=== PATIENT | female | born 1950 | race Caucasian/White ===

== ENCOUNTER 2016-04-17 07:17 | Day surgery (SDC) | payer MEDICARE, OTHER ==
[~2016-04-17 07:17] MED LIST: DEXAMETHASONE SOD PHOSPHATE 10 MG/ML 1 ML VIAL IV ONE; LACTATED RINGERS 1,000 ML IV SCH; MIDAZOLAM 2 MG/2 ML VIAL IV PRN; ONDANSETRON 4 MG/2 ML VIAL IVP ONE; ceFAZolin 2 GM in SODIUM CHLORIDE 0.9% 100 ML IVPB ONE
[2016-04-17 08:31] LABS: Glucose,Whole Blood 109 mg/dL (75-99)
[2016-04-17] MEDS ORDERED: LIDOCAINE 1% 20 ML VIAL (10MG/ML) FOR IV START INTRADERMA ONE (08:33)
[2016-04-17 08:40] LABS: Prothrombin Time 10.3 sec (9.0-12.0)
[2016-04-17] MEDS ORDERED: ePHEDrine 50 MG/ML 1 ML AMP ONE (08:54)
[2016-04-17] MEDS ORDERED: MIDAZOLAM 2 MG/2 ML VIAL ONE (08:54)
[2016-04-17] MEDS ORDERED: SUCCINYLCHOLINE CHLORIDE 100 MG/5 ML SYR IV ONE (08:54)
[2016-04-17] MEDS ORDERED: LIDOCAINE 1% INJ 10MG/ML (20 ML MDV) ONE (08:54)
[2016-04-17] MEDS ORDERED: PHENYLEPHRINE-0.9% NACL SYG 1 MG/10 ML SYRINGE ONE (08:54)
[2016-04-17] MEDS ORDERED: HYDROmorphone (PF) 1 MG/ML ONE (08:54)
[2016-04-17] MEDS ORDERED: PROPOFOL 10 MG/ML 20 ML VIAL IV ONE (08:54)
[2016-04-17] MEDS ORDERED: fentaNYL (PF) 50 MCG/ML 2 ML AMP ONE (08:54)
[2016-04-17] MEDS ORDERED: BUPIVACAINE (PF) 0.5% 30 ML VIAL SQ ONE ×2 (09:32→09:55)
[2016-04-17] MEDS ORDERED: HYDROcodone/APAP 5-325MG 1 EACH TAB PO PRN (10:08)
[2016-04-17] MEDS ORDERED: HYDROmorphone 1 MG/ML 1 ML SYRINGE IVP PRN ×3 (10:08)
[2016-04-17] MEDS ORDERED: ONDANSETRON 4 MG/2 ML VIAL IVP PRN (10:08)
--- NOTE | 2016-04-17 10:19 | P.OP ---
Date of Procedure: 04/17/16 Procedure(s) Performed: PREOPERATIVE DIAGNOSES: 1. Right elbow loose body 2. Right elbow contracture (45 to 100) 3. Right elbow osteoarthritis POSTOPERATIVE DIAGNOSES: 1. Right elbow loose bodies x 7 2. Right elbow contracture (45 to 100) 3. Right elbow osteoarthritis PROCEDURES PERFORMED: 1. Right elbow arthrotomy with open contracture release, anterior and posterior 2. Removal of loose bodies x7 3. Open spur excision olecranon ANESTHESIA: Gen. MEASUREMENT AND VERIFICATION ENGINEER: None COMPLICATIONS: None ESTIMATED BLOOD LOSS: 10 mL. DISPOSITION: To post-anesthesia care unit INDICATIONS: Kristen is a 66-year-old female with a history of right elbow osteoarthritis, pain, and stiffness. She has been having this problem for years and conservative treatment has been unsuccessful. Computed tomography scan preoperatively showed multiple loose bodies and severe osteoarthritis of the joint. She presents to the operating room today for removal of loose bodies contracture release and/or spur excision. I discussed this operation with her in detail as well as potential risks and complications and she wishes to proceed. The consent form has been signed. She is aware of the physical therapy necessary afterwards for optimization of outcome and to prevent the elbow from freezing up after surgery. PROCEDURE: After appropriate consent was obtained, the patient was taken to the operating room placed in the supine position. Anesthesia was initiated, and after confirmation of adequate anesthesia, the patient was carefully positioned. Care was taken to make sure that all pressure points were adequately padded. Prepping and draping were completed in the usual aseptic fashion using ChloraPrep. Timeout was called, confirming patient identity, side , procedure, and administration of antibiotics. Examination of the right elbow while under anesthesia showed range of motion from 45 to 100. Rotation was not significantly diminished from normal. Collateral ligaments felt stable to varus valgus testing. There is no evidence of rotational instability as well. Lateral approach was performed over the elbow. This utilized the interval directly over the lateral condyle and radiocapitellar joint, and was approximately 9 cm in length. It was carried down through skin into subcu tissues and then to muscular fascia. Fascia was split in line with the incision staying anterior to the radial collateral ligament. The common extensor insertion was released for exposure into the joint and joint fluid was evacuated. Good exposure of the anterior aspect of the elbow was accomplished via this lateral approach. Loose bodies x 5 immediately came into view and were removed easily with a small Percy. These measured each approximately 1-2 cm in size. Subsequently, capsular release was performed with a allen elevator, releasing adhesions off of the anterior aspect of the distal humerus. This improved both flexion and extension range of motion by approximately 20 to 25. Next, the same incision was used for a Percy-type approach, just anterior to the anconeus muscle. Good exposure was performed into the posterior compartment of the elbow and it was noted that there were 2 small loose bodies here which were removed easily and also spur formation over the olecranon process. Using a flat osteotome, approximately 5 mm of the posterior portion of the olecranon at the joint was removed. Capsular release was performed in similar fashion using an elevator, disengaging the posterior capsule from the posterior humerus. This portion of the procedure increased extension range of motion by approximately an additional 10. Therefore her final range of motion was 10 to 135. Flexion actually improved as well, and I was able to flex the elbow fairly easily to 135. Tourniquet was then deflated and hemostasis was obtained using cautery. Thorough irrigation of the interior of the joint was performed with normal saline and closure was performed of the fascia with 0 Vicryl suture followed by 3-0 Vicryl suture in the subcu tissues and 30 strata fix suture in running subcuticular fashion for the skin followed by Dermabond. Sterile dressing was applied and the patient's elbow was placed in a soft dressing and sling. Patient tolerated the procedure well and taken to recovery room in stable condition. Sponge and needle counts were correct.
[2016-04-17] MEDS ORDERED: HYDROmorphone 1 MG/ML 1 ML SYRINGE IVP ONE (10:31)
[2016-04-17 10:43] LABS: Glucose,Whole Blood 149 mg/dL (75-99)
[2016-04-17] MEDS ORDERED: diphenhydrAMINE 50 MG/ML 1 ML VIAL IVP ONE (10:47)
[2016-04-17] MEDS ORDERED: NITROGLYCERIN SL TABS 0.4 MG TAB SUBLINGUAL PRN (13:21)
[2016-04-17] MEDS ORDERED: LEVOTHYROXINE 100 MCG TAB PO SCH (13:30)
[2016-04-17] MEDS ORDERED: LEVOTHYROXINE 75 MCG TAB PO SCH (13:30)
[2016-04-17] MEDS: HYDROcodone/APAP 5-325MG 1 EACH TAB PO PRN ×2 (13:44→19:39)
[2016-04-17] MEDS: LACTATED RINGERS 1,000 ML IV SCH ×2 (14:09→22:08)
[2016-04-17] MEDS: ALBUTEROL NEBULIZED 2.5 MG/3 ML INHALATION SCH ×2 (16:18→23:06)
[2016-04-17 17:18] LABS: Glucose,Whole Blood 214 mg/dL (75-99)
[2016-04-17] MEDS: ceFAZolin 2 GM in SODIUM CHLORIDE 0.9% 100 ML IVPB SCH ×2 (17:40→23:40)
[2016-04-17] MEDS: INSULIN LISPRO (humaLOG) 300 UNIT/3 ML VIAL SQ SCH ×2 (17:41→22:19)
[2016-04-17] MEDS: HYDROCORTISONE 1% CREAM 30 GM TUBE TOPICAL SCH ×2 (17:41→22:06)
[2016-04-17] MEDS: hydrOXYzine PAMOATE 25 MG CAP PO PRN (19:40)
[2016-04-17] MEDS ORDERED: BUDESONIDE 0.5 MG/2 ML NEBU INHALATION SCH ×2 (20:00→23:06)
[2016-04-17] MEDS ORDERED: ADVAIR INHALATION SCH (21:00)
[2016-04-17] MEDS ORDERED: GABAPENTIN 300 MG CAP PO SCH (21:00)
[2016-04-17] MEDS ORDERED: LATANOPROST 0.005% OPHTH DROPS 2.5 ML BTL BOTH EYES SCH (21:00)
[2016-04-17] MEDS ORDERED: diphenhydrAMINE 25 MG CAP PO PRN (21:00)
[2016-04-17] MEDS ORDERED: TEMAZEPAM 15 MG CAP PO PRN (21:00)
[2016-04-17] MEDS ORDERED: SENNOSIDES-DOCUSATE SODIUM 1 EACH TAB PO PRN (21:00)
[2016-04-17] MEDS ORDERED: MONTELUKAST 10 MG TAB PO SCH (21:00)
--- NOTE | 2016-04-17 21:22 | CONS ---
DATE OF CONSULTATION: REASON FOR CONSULTATION: Recommendations regarding anticoagulation as well as recommendations regarding diabetic medications. Patient is a very pleasant 66-year-old female who came in for bone spur removal from the right elbow area. Patient postoperatively is doing clinically well. Patient denies any fever or chills. Patient did pass gas post surgery. Denied any nausea, vomiting, dysuria. Patient was receiving antibiotics for possibility of cellulitis. She completed the course of antibiotic. Patient is on Coumadin for DVT in the past, but the DVT history is remote and patient's Coumadin was held for the surgery. INR is 1. Patient takes 4 mg of Coumadin. REVIEW OF SYSTEMS: CONSTITUTIONAL: No fever, no malaise, no fatigue. HEENT: No recent visual problems or hearing problems. Denied any sore throat. CARDIOVASCULAR: No chest pain, orthopnea, PND, no palpitations, no syncope. PULMONARY: No shortness of breath, no cough, no hemoptysis. GASTROINTESTINAL: No diarrhea, no nausea, no vomiting, no abdominal pain. Normoactive bowel sounds. NEUROLOGICAL: No headaches, no weakness, no numbness. HEMATOLOGICAL: Denies any bleeding or petechiae. GENITOURINARY: Denies any burning micturition, frequency, or urgency. MUSCULOSKELETAL/RHEUMATOLOGICAL: Pain at the surgical site area. ENDOCRINE: Denies any polyuria or polydipsia. The rest of the 14 point review of systems is negative. Past medical history is significant for: 1. COPD. 2. Diabetes mellitus. 3. DVT in the past. 4. Osteoarthritis. 5. Sleep apnea. 6. Hypothyroidism. 7. Glaucoma. 8. Back surgery. 9. Bladder surgery. 10. Cardiac catheterization surgery. 11. Hysterectomy. 12. Joint replacement surgery. 13. Orthopedic surgery. 14. Tonsillectomy. FAMILY HISTORY: Significant for hyperlipidemia and hypertension. SOCIAL HISTORY: Remote history of smoking. Denied any alcohol abuse or any drug abuse. PHYSICAL EXAMINATION: VITAL SIGNS: Temperature 97.8, pulse of 66, respiratory rate of 16. Blood pressure is 114/55. Saturating at 95% on 3 L of oxygen by nasal cannula. GENERAL: The patient is alert and oriented x3, not in any acute distress. Well developed, well nourished. HEENT: Pupils are round and equally reacting to light. EOMI. No scleral icterus. No conjunctival pallor. Normocephalic, atraumatic. No pharyngeal erythema. No thyromegaly. CARDIOVASCULAR: S1 and S2 present. No murmurs, rubs, or gallops. PULMONARY: Chest is clear to auscultation, no wheezing or crackles. ABDOMEN: Soft, nontender, nondistended, normoactive bowel sounds. No palpable organomegaly. MUSCULOSKELETAL: Defer to Orthopedic surgery. EXTREMITIES: No cyanosis, clubbing, or pedal edema. NEUROLOGICAL: Gross neurological examination did not reveal any focal deficits. SKIN: No rashes. LABORATORY DATA: None available except for INR, which is ( ). Stopping anticoagulation before surgery. ASSESSMENT AND PLAN: 1. Right elbow spur removal. Pain management as per primary services. ( ) heparin for DVT prophylaxis ( ) patient's DVT was remote, patient can be resumed on Coumadin. May check INR is about 5 days. 2. Chronic obstructive pulmonary disease, not in acute exacerbation. 3. Type 2 diabetes mellitus. Patient's blood sugars appear to be well controlled on oral hypoglycemics and patient is eating almost her full meal, because of which we can go ahead and continue that and use sliding scale insulin. 4. Sleep apnea. 5. Gastroesophageal reflux disease. 6. Hypothyroidism. For above-mentioned chronic medical problems, I recommend going ahead and continue her home medications. Continue home CPAP. Thank you for letting me participate in the patient's care. Will continue to follow the patient on an as-needed basis. Patient most probably will be discharged tomorrow on the same dose of Coumadin with INR check in about 5 days. Patient's primary care physician is Dr. Josy Man.
[2016-04-17] MEDS: FAMOTIDINE 20 MG TAB PO SCH (22:05)
[2016-04-17] MEDS: LATANOPROST 0.005% OPHTH DROPS 2.5 ML BTL BOTH EYES SCH (22:06)
[2016-04-17] MEDS: BRIMONIDINE TARTRATE 0.2% DROPS 5 ML BTL BOTH EYES SCH (22:07)
[2016-04-17 22:18] LABS: Glucose,Whole Blood 153 mg/dL (75-99)
[2016-04-17] MEDS: HEPARIN SODIUM,PORCINE 5,000 UNIT/ML 1 ML VIAL SQ SCH (23:16)
[2016-04-18] MEDS: HYDROcodone/APAP 5-325MG 1 EACH TAB PO PRN ×3 (01:44→12:18)
[2016-04-18] MEDS: hydrOXYzine PAMOATE 25 MG CAP PO PRN ×2 (01:44→06:58)
[2016-04-18] MEDS: LACTATED RINGERS 1,000 ML IV SCH (03:11)
[2016-04-18] MEDS ORDERED: LEVOTHYROXINE 75 MCG TAB PO SCH (06:30)
[2016-04-18 07:02] LABS: Glucose,Whole Blood 121 mg/dL (75-99)
[2016-04-18] MEDS: ALBUTEROL NEBULIZED 2.5 MG/3 ML INHALATION SCH (07:28)
[2016-04-18] MEDS: INSULIN LISPRO (humaLOG) 300 UNIT/3 ML VIAL SQ SCH ×2 (08:42→15:01)
[2016-04-18] MEDS: LATANOPROST 0.005% OPHTH DROPS 2.5 ML BTL BOTH EYES SCH (08:54)
[2016-04-18] MEDS: HEPARIN SODIUM,PORCINE 5,000 UNIT/ML 1 ML VIAL SQ SCH (08:54)
[2016-04-18] MEDS: BRIMONIDINE TARTRATE 0.2% DROPS 5 ML BTL BOTH EYES SCH (08:54)
[2016-04-18] MEDS: HYDROCORTISONE 1% CREAM 30 GM TUBE TOPICAL SCH (08:54)
[2016-04-18] MEDS: FAMOTIDINE 20 MG TAB PO SCH (08:55)
[2016-04-18 09:33] VITALS: RESP 16
--- NOTE | 2016-04-18 11:01 | P.DS ---
Providers Date of admission: 04/17/2016 Expected date of discharge: 04/18/16 Attending physician: Sonny Kim Consults: 04/17/16 10:08 Consult Physician Routine Consulting Provider: Serene Cui Consult Reason/Comments: medical management Do you want consulting provider notified?: Yes Primary care physician: Josy Man - Discharge Diagnosis(es) (1) Loose body in elbow joint Current Visit: Yes Status: Acute Hospital Course: This is a pleasant 66-year-old female who presented with loose bodies of the right elbow and olecranon spur who failed outpatient conservative therapy. She admitted for right elbow arthrotomy with open contracture release anterior and posterior with removal of 7 loose bodies and open spur excursion of the olecranon form by Dr. Kim on 04/17/2016. The patient tolerated the procedure well and did well postoperatively in regards to her right elbow. She did have some nausea yesterday with vomiting on her sling and had to have it changed. Patient states she has also been experiencing some lightheadedness when attempting to ambulate postsurgically. At this time she does not feel she'll be able to be discharged home due to her lightheadedness. We discussed we'll plan to have her have further consultation with medicine for further evaluation for her lightheadedness and will attempt to have her ambulate with assistance. If her symptoms are able to improve and she is cleared by medicine, she will be cleared for discharge today. Patient states she is working on her range of motion of her right elbow without significant difficulty. She does have some generalized swelling of the right hand, which is expected postsurgically. Prescriptions have been written for Gardner 5 mg/325 mg and Senokot. Condition on day of discharge will be stable. Patient will be discharged home. Patient was cleared preoperatively for surgery by Dr. Josy Man. Patient currently denies any nausea, vomiting, fever, or chills. Patient is eating and voiding freely without difficulty. Patient may shower without dressing if no drainage at the incision site after 48 hours. Physical Exam: Patient is awake, alert, and oriented 3 Vital signs stable Good chest excursion with deep inspiration and expiration Abdomen soft nontender Sling in place over the right upper extremity Patient is able to remove sling and perform some flexion extension of the right elbow without significant difficulty Juliano wrap dressing is intact over the right elbow Incision is clean, dry, and intact; no erythema, purulence, or signs of infection Patient is able to perform wrist flexion and extension able to move all fingers of the right hand without significant difficulty Some generalized mild swelling of the hand and fingers of the right upper extremity Neurovascular intact right upper extremity Capillary refill less than 2 seconds right upper extremity No pain with palpation of the right shoulder Assessment: Status post right elbow arthrotomy with open contracture release anterior and posterior with removal of 7 loose bodies and open spur excursion of the olecranon Plan: 1. We'll currently plan for further evaluation by medicine for the patient's lightheadedness. If she is able to be seen and examined and cleared by medicine we'll plan to have her discharged home. From orthopedic standpoint, she is clear for discharge in regards to her right elbow. I currently do not have a medical reason she would need to remain in the hospital in regards to her right elbow, but do not feel she is ready to be discharged until she is cleared in regards to her lightheadedness. I discussed with the patient in detail I would like her to have her further evaluated for her left lightheadedness prior to discharge home. 2. Continue pain control 3. We will continue to follow patient 4. Patient is cleared from medicine standpoint, we'll plan for patient be discharged home either later today or tomorrow morning 5. Dressing of the right upper extremity may be change prior to discharge Procedures: Right elbow arthrotomy with open contracture release anterior and posterior with removal of 7 loose bodies and open spur excursion of the olecranon Patient Condition at Discharge: Stable Plan - Discharge Summary New Discharge Prescriptions: HYDROcodone/APAP 5-325MG [Gardner 5] 1 - 2 each PO Q4-6H PRN #60 tab PRN Reason: Pain Sennosides-Docusate Sodium [Senokot-S] 1 tab PO BID #60 tablet Discharge Medication List Brimonidine Tartrate [Alphagan P 0.1% Ophth Soln] 1 drops BOTH EYES BID [History] Fluticasone Propionate [Flovent Diskus] 1 puff INHALATION HS 10/02/13 [History] Folic Acid/Mv,Fe,Min [Centrum Multivitamin Tab Chew] 1 each PO DAILY 10/02/13 [ History] Gabapentin [Neurontin] 300 mg PO HS 10/02/13 [History] Levothyroxine Sodium [Synthroid] 150 mcg PO SUTUTHSA 10/02/13 [History] Levothyroxine Sodium [Synthroid] 175 mcg PO MOWEFR 10/02/13 [History] Montelukast [Singulair] 10 mg PO HS 10/02/13 [History] Nitroglycerin Sl Tabs [Nitrostat] 0.4 mg SL DIRECTED PRN 10/02/13 [History] Travoprost [Travatan Z 0.004%] 1 drop BOTH EYES BID 10/02/13 [History] glipiZIDE [Glucotrol] 5 mg PO AC-BID 10/02/13 [History] Albuterol Nebulizer 1 dose INHALATION BID 01/23/14 [History] Dicyclomine [Bentyl] 20 mg PO BID 01/23/14 [History] Ranitidine HCl [Zantac] 150 mg PO BID 01/23/14 [History] Latanoprost Ophth [Xalatan 0.005%] 1 drops BOTH EYES HS 02/23/14 [History] Advair Inhaler (Unknown Dose) 1 puff INHALATION BID 06/05/14 [History] Warfarin [Coumadin] 4 mg PO DAILY 06/05/14 [History] Baclofen 5 mg PO Q8H 09/24/14 [History] Hydrocortisone Cream [Hydrocortisone 1% Cream] 1 applic TOPICAL TID #1 cream..g. 11/20/15 [Rx] diphenhydrAMINE [Benadryl] 1 - 2 tab PO Q6HR PRN #30 capsule 11/20/15 [Rx] Cephalexin [Keflex] 500 mg PO Q6HR 04/15/16 [History] HYDROcodone/APAP 5-325MG [Gardner 5] 1 - 2 each PO Q4-6H PRN #60 tab 04/17/16 [Rx] Sennosides-Docusate Sodium [Senokot-S] 1 tab PO BID #60 tablet 04/17/16 [Rx] Follow up Appointment(s)/Referral(s): Sonny Kim MD [STAFF PHYSICIAN] - 04/27/16 2:00 pm Activity/Diet/Wound Care/Special Instructions: May change dressing before discharge. May shower if no drainage after 48h. Encourage gentle ROM of elbow.
[2016-04-18 11:04] LABS: Hemoglobin A1C 6.2 % (4.2-6.1)
[2016-04-18 11:44] LABS: Glucose,Whole Blood 154 mg/dL (75-99)
[2016-04-18 15:07] VITALS: BP 112/58; PULSE 62; TEMP 98.8
--- NOTE | 2016-04-18 16:25 | PN ---
Patient is a 68-year-old admitted after bone spur removal. Patient is clinically doing well. Okay to be discharged from my perspective. Patient although is wheezing, but saturating well. I do not believe patient will need systemic steroids. Patient has inhalational steroids and albuterol at home, which she can continue. I do not have any further recommendations. Patient can be discharged from my perspective and follow up with Dr. Josy Man as an outpatient. Patient was complaining of some dizziness secondary to anticholinergic medications she was receiving as well as narcotic pain medications she was receiving. I do not believe any further workup is necessary at this point of time. REVIEW OF SYSTEMS: CARDIOVASCULAR: No chest pain, no orthopnea, no PND, no palpitations. PULMONARY: Denied any shortness of breath. No cough or hemoptysis. GASTROINTESTINAL: No diarrhea, nausea or vomiting. No abdominal pain. Normoactive bowel sounds. NEUROLOGIC: Dizziness as mentioned above without any focal deficits. Medications were reviewed and medical reconciliation was reviewed, no changes are being made. PHYSICAL EXAMINATION: Temperature 97.7 pulse of 63, respiratory rate of 16, blood pressure is 132/62, saturating at 96% on room air. GENERAL: The patient is alert and oriented x3, not in any acute distress. Well developed, well nourished. HEENT: Pupils are round and equally reacting to light. EOMI. No scleral icterus. No conjunctival pallor. Normocephalic, atraumatic. No pharyngeal erythema. No thyromegaly. CARDIOVASCULAR: S1 and S2 present. No murmurs, rubs, or gallops. PULMONARY: Chest is clear to auscultation, no wheezing or crackles. ABDOMEN: Soft, nontender, nondistended, normoactive bowel sounds. No palpable organomegaly. MUSCULOSKELETAL: Defer to orthopedic surgery. EXTREMITIES: No cyanosis, clubbing, or pedal edema. NEUROLOGICAL: Gross neurological examination did not reveal any focal deficits. SKIN: No rashes. LABORATORY DATA: Hemoglobin A1c is 6.2. ASSESSMENT AND PLAN: 1. Right elbow spur removal. Deep venous thrombosis prophylaxis and further management for pain as per primary service. 2. Chronic obstructive pulmonary disease versus asthma. The patient has minimal exacerbation, but patient should be okay with inhalational steroids and albuterol. The patient is not tachycardic. Respiratory rate is okay. Saturations are okay. I do not believe patient will need to stay in the hospital for that. 3. Sleep apnea. 4. Gastroesophageal reflux disease. 5. Hypothyroidism. Patient is okay to be discharged from my perspective. Same thing was conveyed to the patient and the primary service. Patient will follow with Dr. Sonny Kim as scheduled and Dr. Josy Man in 3 to 7 days. Activity as tolerated. Regular diet.
[2016-04-18] MEDS ORDERED: WARFARIN 2 MG TAB PO SCH (18:00)
== END 2016-04-18 16:24 ==
LOC: OR 07:17 → 3SUR 10:05 → OR 04-18 16:24
PROVIDERS: ATTEND Orthopaedic Surgery
DX: M24.021 Loose body in right elbow (principal); M24.521 Contracture, right elbow; M19.021 Primary osteoarthritis, right elbow; L03.032 Cellulitis of left toe; J45.909 Unspecified asthma, uncomplicated; E11.9 Type 2 diabetes mellitus without complications; K21.9 Gastro-esophageal reflux disease without esophagitis; M25.721 Osteophyte, right elbow; R11.2 Nausea with vomiting, unspecified; R42 Dizziness and giddiness; E03.9 Hypothyroidism, unspecified; G47.33 Obstructive sleep apnea (adult) (pediatric); H40.9 Unspecified glaucoma; H91.90 Unspecified hearing loss, unspecified ear; I10 Essential (primary) hypertension; Z79.51 Long term (current) use of inhaled steroids; Z79.899 Other long term (current) drug therapy; Z88.1 Allergy status to other antibiotic agents; Z88.5 Allergy status to narcotic agent; Z88.2 Allergy status to sulfonamides; Z91.040 Latex allergy status; Z79.01 Long term (current) use of anticoagulants; Z79.82 Long term (current) use of aspirin; Z86.718 Personal history of other venous thrombosis and embolism
CPT/HCPCS: 24147; 24101; 94640 ×2; 88304; 83036; 85610; 88311; J2250; J1200; J1644 ×2; J1100; J0690; J2405; J2001; J3010; J1170; J2370; J0330; J2704

== ENCOUNTER → 2016-05-25 | Outpatient (CLI) | payer MEDICARE, OTHER ==
[2016-05-25 10:07] LABS: INR 2.4 (<1.1); Prothrombin Time 22.9 sec (9.0-12.0)
== END | disposition home or self-care (01) ==
LOC: LABWHC1 09:30
PROVIDERS: ATTEND Ophthalmology
DX: I82.409 Acute embolism and thrombosis of unspecified deep veins of unspecified lower extremity (principal)
CPT/HCPCS: 36415; 85610

== ENCOUNTER 2016-05-27 06:15 | Day surgery (SDC) | payer MEDICARE, OTHER ==
[2016-05-26 14:54] VITALS: BMI 34.1
[~2016-05-27 06:15] MED LIST changes: -DEXAMETHASONE SOD PHOSPHATE 10 MG/ML 1 ML VIAL IV ONE; -LACTATED RINGERS 1,000 ML IV SCH; -MIDAZOLAM 2 MG/2 ML VIAL IV PRN; +MOXIFLOXACIN HCL 0.5% DROPS 3 ML BTL OP ONE; -ONDANSETRON 4 MG/2 ML VIAL IVP ONE; +TETRACAINE 0.5% OPHTH (PF) DROPS 4 ML BTL OP ONE; +TIMOLOL 0.5% OPHTH SOLN (PF) 0.2 ML DROPERETTE OP ONE; -ceFAZolin 2 GM in SODIUM CHLORIDE 0.9% 100 ML IVPB ONE
[2016-05-27] MEDS: CYCLOPENTOLATE 1% OPHTH SOLN 2 ML BTL OP ONE ×3 (06:32→07:00)
[2016-05-27] MEDS: PHENYLEPHRINE 2.5% OPHTH DRP 2ML OP NR ×3 (06:43→07:05)
[2016-05-27] MEDS ORDERED: LACTATED RINGERS 1,000 ML IV ONE (06:59)
[2016-05-27] MEDS ORDERED: ALBUTEROL NEBULIZED 2.5 MG/3 ML INHALATION STA (07:03)
[2016-05-27 07:04] VITALS: RESP 16; TEMP 97.8
[2016-05-27] MEDS ORDERED: LIDOCAINE 1% 20 ML VIAL (10MG/ML) FOR IV START INTRADERMA ONE (07:06)
[2016-05-27 07:15] LABS: Glucose,Whole Blood 118 mg/dL (75-99)
[2016-05-27] MEDS ORDERED: MIDAZOLAM 2 MG/2 ML VIAL ONE (07:28)
[2016-05-27] MEDS ORDERED: EPINEPHrine (PF) 0.3 ML in BALANCED SALT IRRIG SOLN COMB2 500 ML IRRIGATION ONE (07:46)
[2016-05-27] MEDS ORDERED: HYALURONATE SODIUM INTRAOCULAR 1 EACH SYRINGE (12MG/ML) INTRAOCULA ONE (07:48)
[2016-05-27] MEDS ORDERED: BALANCED SALT IRRIG SOLN COMB2 15 ML IRRIG.SOLN IRRIGATION ONE (07:48)
[2016-05-27] MEDS ORDERED: HYALURONATE SODIUM INTRAOCULAR 1 EACH SYRINGE (10MG/ML) INTRAOCULA ONE (07:49)
[2016-05-27] MEDS ORDERED: LIDOCAINE 1% (PF) 10MG/ML VIAL MISCELLANE ONE (07:49)
--- NOTE | 2016-05-27 08:21 | P.OP ---
Date of Procedure: 05/27/16 Preoperative Diagnosis: NS & CS & PSC & POAG Postoperative Diagnosis: same Procedure(s) Performed: PIOL & iStent OD Implants: PCB0 18.50 & [id number] Anesthesia: MAC Surgeon: Brayden Shankar Estimated Blood Loss (ml): 0 Pathology: none sent Condition: stable Disposition: same day Indications for Procedure: blurry vision and POAG Operative Findings: no complications
[2016-05-27 08:50] VITALS: BP 140/82; PULSE 70
--- NOTE | 2016-05-28 07:53 | OP ---
DATE OF SERVICE: SURGEON: THADDEUS RANGEL MD FRONTLOAD DRIVER: PREOPERATIVE DIAGNOSIS: Nuclear sclerosis, cortical sclerosis and primary open-angle glaucoma, moderate stage. POSTOPERATIVE DIAGNOSIS: Nuclear sclerosis, cortical sclerosis and primary open-angle glaucoma, moderate stage. OPERATION: Phacoemulsification of cataract with intraocular lens implant of the right eye with an eye stent implantation. ANESTHESIA: Topical. ESTIMATED BLOOD LOSS: 5 mL. SPECIMENS REMOVED: None. COMPLICATIONS: OPERATIVE FINDINGS: DESCRIPTION OF PROCEDURE: NARRATIVE: After obtaining the appropriate consent, the patient was brought to the operating room. There she was placed under cardiac monitoring, prepped and draped in the usual sterile manner. She was approached from her right temporal side. At the 11o'clock position, a 1.1 mm stab blade was used to create a paracentesis port. Through this opening, 1% Xylocaine MPF 50-50 mix with balance salt solution was injected into the anterior chamber. This was followed by stabilization of the anterior chamber with Viscoat. At the 9 o'clock position, a 2.5 mm keratome was used to create a self-sealing corneal flap incision. Additional Viscoat was placed on the patient's cornea. The patient's head was rotated approximately 45 degrees away from the operative side and a gonioprism was placed on the eye to identify the trabecular mesh work. This was easily noted and placement of an iStent by Elli, Model #[id number] [id number] was placed after the second attempt directly into the trabecular mesh work without difficulty. A reasonable amount of blood was refluxed at the time of placement as would be expected. The patient's head was then returned to the proper supine position. A cystotome was introduced to start a continuous tear capsulorrhexis, which was completed using the Utrata forceps. Hydrodissection and hydrodelineation of the lens was accomplished with balanced salt solution. Phacoemulsification of the lens utilizing phaco chop was accomplished in 15.72 seconds at 10% power. Additional Xylocaine MPF was instilled into the anterior chamber. This was followed by removal of the remaining cortex under irrigation and aspiration along with careful polishing of the posterior capsule in capsule vacuum mode. Amvisc was then used to stabilize the anterior chamber and an KARMEN PCB00 18.5 diopter posterior chamber intraocular lens was then introduced into the anterior chamber and placed into the capsular bag. The remaining viscoelastic was then removed under irrigation and aspiration and the eye was inflated to normal intraocular pressure through the paracentesis port and the wounds were confirmed watertight. She then received 2 drops of 0.5% timolol followed by 2 drops of Vigamox, was then lightly patched and shielded in the usual manner. There were no complications from the procedure. She tolerated the procedure well and was returned to outpatient recovery in good condition.
== END 2016-05-27 09:15 | disposition home or self-care (01) ==
LOC: OR 06:15
PROVIDERS: ATTEND Ophthalmology
DX: H25.11 Age-related nuclear cataract, right eye (principal); H25.011 Cortical age-related cataract, right eye; H40.1132 Primary open-angle glaucoma, bilateral, moderate stage; Z79.899 Other long term (current) drug therapy; Z88.1 Allergy status to other antibiotic agents; Z88.5 Allergy status to narcotic agent; Z88.2 Allergy status to sulfonamides; I25.2 Old myocardial infarction; E78.00 Pure hypercholesterolemia, unspecified; F32.9 Major depressive disorder, single episode, unspecified; I10 Essential (primary) hypertension; E11.40 Type 2 diabetes mellitus with diabetic neuropathy, unspecified; Z79.01 Long term (current) use of anticoagulants; J45.909 Unspecified asthma, uncomplicated; J44.9 Chronic obstructive pulmonary disease, unspecified; G47.33 Obstructive sleep apnea (adult) (pediatric); K21.9 Gastro-esophageal reflux disease without esophagitis; Z86.718 Personal history of other venous thrombosis and embolism; Z91.040 Latex allergy status
CPT/HCPCS: 94640; 66984; 66183; C1780; C1783; J2250; J0171; J2001; 99152; 99153

== ENCOUNTER 2016-06-24 06:06 | Day surgery (SDC) | payer MEDICARE, OTHER ==
[~2016-06-24 06:06] MED LIST changes: +DEXAMETHASONE SOD PHOSPHATE 10 MG/ML 1 ML VIAL IV ONE; +HYDROmorphone 1 MG/ML 1 ML SYRINGE IVP PRN; +LACTATED RINGERS 1,000 ML IV SCH; +MIDAZOLAM 2 MG/2 ML VIAL IV PRN; +ONDANSETRON 4 MG/2 ML VIAL IVP ONE
[2016-06-24 06:33] VITALS: TEMP 98.6
[2016-06-24] MEDS: PHENYLEPHRINE 2.5% OPHTH DRP 2ML OP NR ×3 (06:49→07:09)
[2016-06-24] MEDS: CYCLOPENTOLATE 1% OPHTH SOLN 2 ML BTL OP ONE ×3 (06:51→07:13)
[2016-06-24] MEDS ORDERED: LIDOCAINE 1% 20 ML VIAL (10MG/ML) FOR IV START INTRADERMA ONE (07:00)
[2016-06-24 07:01] LABS: Glucose,Whole Blood 129 mg/dL (75-99)
[2016-06-24] MEDS ORDERED: FAMOTIDINE 20 MG/2 ML VIAL IV STA (07:03)
[2016-06-24] MEDS ORDERED: MIDAZOLAM 2 MG/2 ML VIAL ONE (07:30)
[2016-06-24] MEDS ORDERED: fentaNYL (PF) 50 MCG/ML 2 ML AMP ONE (07:30)
[2016-06-24] MEDS ORDERED: DUOVISC KIT (GREEN BOX) INTRAOCULA ONE (07:34)
[2016-06-24] MEDS ORDERED: LIDOCAINE 1% (PF) 10MG/ML VIAL SQ ONE (07:34)
[2016-06-24] MEDS ORDERED: BALANCED SALT IRRIG SOLN COMB2 15 ML IRRIG.SOLN IRRIGATION ONE (07:34)
[2016-06-24] MEDS ORDERED: EPINEPHrine (PF) 0.3 ML in BALANCED SALT IRRIG SOLN COMB2 500 ML IRRIGATION ONE (07:49)
--- NOTE | 2016-06-24 08:16 | P.OP ---
Date of Procedure: 06/24/16 Preoperative Diagnosis: NS & CS & POAG moderate stage Postoperative Diagnosis: same Procedure(s) Performed: PIOL, iStent implantation OS Implants: PCB0 19.0 & iStent [id number] Anesthesia: MAC Surgeon: Brayden Shankar Estimated Blood Loss (ml): 0 Pathology: none sent Condition: stable Disposition: same day Indications for Procedure: blurry vision and glaucoma Operative Findings: no complications
[2016-06-24 09:01] VITALS: RESP 16
[2016-06-24] MEDS ORDERED: PROMETHAZINE INJ 25 MG/ML 1 ML VIAL IVPB ONE (09:09)
[2016-06-24] MEDS ORDERED: PROMETHAZINE INJ 6.25 MG in SODIUM CHLORIDE 0.9% 50 ML IVPB STA ×2 (09:11→09:14)
[2016-06-24] MEDS ORDERED: ONDANSETRON 4 MG/2 ML VIAL IVP ONE (09:23)
[2016-06-24 09:29] VITALS: BP 120/58; PULSE 64
--- NOTE | 2016-06-25 08:10 | OP ---
DATE OF SERVICE: 06/24/2016 SURGEON: THADDEUS RANGEL MD INDUSTRIAL TECHNOLOGIST: PREOPERATIVE DIAGNOSES: Nuclear sclerosis, cortical sclerosis, posterior subcapsular cataract, and primary open-angle glaucoma, moderate stage. POSTOPERATIVE DIAGNOSES: Nuclear sclerosis, cortical sclerosis, posterior subcapsular cataract, and primary open-angle glaucoma, moderate stage. OPERATION: Phacoemulsification of cataract and intraocular lens implant of the left eye with an eye stent implantation. ANESTHESIA: Topical. ESTIMATED BLOOD LOSS: None. SPECIMENS REMOVED: None. COMPLICATIONS: OPERATIVE FINDINGS: DESCRIPTION OF PROCEDURE: NARRATIVE: Patient was brought to the operating room. There she was placed under cardiac monitoring, prepped and draped in the usual sterile manner. She was approached from her left temporal side and at the 5 o'clock position a 1.1 mm stab blade was used to create a paracentesis port. Through this opening, 1% Xylocaine MPF was instilled into the anterior chamber. This was followed by stabilization of the anterior chamber with Viscoat. A small amount of Viscoat was also placed on the patient's cornea. At the 3 o'clock position, a 2.5 mm keratome was used to create a self-sealing corneal flap incision in a Langerman fashion. Patient was then rotated approximately 45 degrees away from the surgical site and a gonioprism was placed on the patient's eye. The trabecular meshwork was easily identified and an iStent, model #GTS [id number] was passed across the anterior chamber and implanted into the trabecular meshwork without difficulty. A small amount of blood was identified at the end of the placement procedure as one would expect. Patient was then rotated to the normal supine position. A cystotome was introduced to begin a continuous tear capsulorrhexis, which was completed using the Utrata forceps. Hydrodissection and hydrodelineation of the lens was accomplished with balanced salt solution. Phacoemulsification of the lens utilizing phaco chop was accomplished in 11.34 seconds at 9% power. Additional Xylocaine MPF was instilled into the anterior chamber. This was followed by removal of the remaining cortex under irrigation and aspiration along with careful polishing of the posterior capsule in capsule vacuum mode. Additional Provisc was instilled into the capsular bag and an KARMEN PCB00 19.0 diopter posterior chamber intraocular lens was then inserted into the capsular bag without difficulty. Irrigation and aspiration in and around the intraocular lens as well as the anterior chamber removed the remaining viscoelastic. The eye was then brought to normal intraocular pressure through the paracentesis port with balanced salt solution. The incisions were checked for watertight integrity. She then received 2 drops of 0.5% timolol followed by 2 drops of Vigamox, was then lightly patched and shielded in the usual manner. There were no complications from the procedure. She tolerated the procedure well and was returned to outpatient recovery in good condition.
== END 2016-06-24 09:59 | disposition home or self-care (01) ==
LOC: OR 06:06
PROVIDERS: ATTEND Ophthalmology
DX: H25.12 Age-related nuclear cataract, left eye (principal); H25.012 Cortical age-related cataract, left eye; H25.042 Posterior subcapsular polar age-related cataract, left eye; H40.1132 Primary open-angle glaucoma, bilateral, moderate stage; E11.36 Type 2 diabetes mellitus with diabetic cataract; H57.059 Tonic pupil, unspecified eye; H52.13 Myopia, bilateral; H21.23 Degeneration of iris (pigmentary); Z96.1 Presence of intraocular lens; I10 Essential (primary) hypertension; J44.9 Chronic obstructive pulmonary disease, unspecified; M19.90 Unspecified osteoarthritis, unspecified site; J45.909 Unspecified asthma, uncomplicated; E78.00 Pure hypercholesterolemia, unspecified; E03.9 Hypothyroidism, unspecified; I25.2 Old myocardial infarction; I51.9 Heart disease, unspecified; G62.9 Polyneuropathy, unspecified; Z79.01 Long term (current) use of anticoagulants; Z79.51 Long term (current) use of inhaled steroids; Z79.899 Other long term (current) drug therapy; Z88.1 Allergy status to other antibiotic agents; Z88.5 Allergy status to narcotic agent; Z88.2 Allergy status to sulfonamides
CPT/HCPCS: 66984; 66183; C1780; C1783; J2250; J1100; J2405; J0171; J3010; J2001

== ENCOUNTER → 2016-08-13 | Outpatient (CLI) | payer MEDICARE, OTHER ==
[2016-08-13 11:05] LABS: Hemoglobin A1C 6.2 % (4.2-6.1)
== END | disposition home or self-care (01) ==
LOC: LABWHC1 07:51
PROVIDERS: ATTEND Family Medicine
DX: E11.9 Type 2 diabetes mellitus without complications (principal)
CPT/HCPCS: 36415; 83036

== ENCOUNTER → 2016-09-09 | Outpatient (CLI) | payer MEDICARE ==
[2016-09-09 10:14] LABS: ALT 44 U/L (9-52); AST 34 U/L (14-36); Alkaline Phosphatase 109 U/L (38-126); Anion Gap 10 mmol/L; Blood Urea Nitrogen 11 mg/dL (7-17); Calcium 9.5 mg/dL (8.4-10.2); Carbon Dioxide 28 mmol/L (22-30); Chloride 103 mmol/L (98-107); Cholesterol 188 mg/dL (<200); Glucose 102 mg/dL (74-99); HDL Cholesterol 41 mg/dL (40-60); Non-African American GFR(MDRD) >60 (>60 ml/min/1.73 sqM); Potassium 4.5 mmol/L (3.5-5.1); Sodium 141 mmol/L (137-145); Total Bilirubin 0.6 mg/dL (0.2-1.3); Total Protein 7.1 g/dL (6.3-8.2); Triglycerides 157 mg/dL (<150)
== END | disposition home or self-care (01) ==
LOC: LABWHC1 08:17
PROVIDERS: ATTEND Family Medicine
DX: E78.00 Pure hypercholesterolemia, unspecified (principal); E03.9 Hypothyroidism, unspecified; E11.9 Type 2 diabetes mellitus without complications
CPT/HCPCS: 36415; 80053; 80061; 84439; 84443

== ENCOUNTER → 2016-10-07 | Outpatient (CLI) | payer MEDICARE ==
--- NOTE | 2016-10-07 13:15 | MM ---
Reason for exam: screening (asymptomatic). Last mammogram was performed 1 year and 1 month ago. History: Patient is postmenopausal. Benign stereotactic core biopsy of the right breast, March 26, 1999. Core biopsy of the right breast. Physical Findings: A clinical breast exam by your physician is recommended on an annual basis and results should be correlated with mammographic findings. MG 3D Screening Mammo W/Cad Bilateral CC and MLO view(s) were taken. Prior study comparison: September 17, 2015, bilateral MG 3d screening mammo w/cad. May 03, 2013, bilateral digital screening mammo w/CAD. There are scattered fibroglandular densities. Benign calcifications. There is no discrete abnormality. No significant changes when compared with prior studies. ASSESSMENT: Benign, BI-RAD 2 RECOMMENDATION: Routine screening mammogram of both breasts in 1 year.
== END | disposition home or self-care (01) ==
LOC: RADMAMWWP 07:32
PROVIDERS: ATTEND Family Medicine
DX: Z12.31 Encounter for screening mammogram for malignant neoplasm of breast (principal)
CPT/HCPCS: 77063; G0202

== ENCOUNTER → 2016-10-14 | Outpatient (CLI) | payer MEDICARE ==
--- NOTE | 2016-10-14 14:26 | US ---
EXAMINATION TYPE: US thyroid st tissue head/neck DATE OF EXAM: 10/14/2016 COMPARISON: US CLINICAL HISTORY: 66-year-old female E04.2 Nontoxic multinodular goiter. TECHNIQUE: Multiple sonographic images of the thyroid gland are obtained. FINDINGS: GLAND SIZE: Right Lobe: there is small area of very heterogeneous tissue measuring 2.6 x 0.9 x 1.0 cm. Left Lobe: no appreciable thyroid tissue seen Isthmus Thickness: no appreciable thyroid tissue seen No discrete nodules. Bilateral neck scanned, no evidence of lymphadenopathy. IMPRESSION: Small amount of heterogeneous tissue measuring 2.6 cm in the right thyroid fossa. No appreciable thyr oid tissue seen on the left. Clinical correlation recommended.
== END | disposition home or self-care (01) ==
LOC: RADUSWWP 13:29
PROVIDERS: ATTEND Family Medicine
DX: E07.89 Other specified disorders of thyroid (principal)
CPT/HCPCS: 76536

== ENCOUNTER → 2017-03-02 | Outpatient (CLI) | payer MEDICARE ==
--- NOTE | 2017-03-02 16:43 | PN ---
PROGRESS NOTE This is a 67-year-old female patient, who is well known to me regarding obstructive sleep apnea. The patient has been on BiPAP therapy at a pressure of 11/7 cm of water. She is coming in today with increased somnolence and sleepiness. The patient's machine is not functioning and is not working at this point. I plugged the machine and there is absolutely no functionality and no output noted. No trauma to the machine. The patient has been using the same machine for more than 6 years. Last CPAP titration was back in 2010. She is symptomatic. She is snoring. She is very somnolent and sleepy during the day and she is requesting a replacement machine. Her current Hixson score is 20. PHYSICAL EXAMINATION: BP is 133/78, pulse 86, respirations 16, temperature 16, temperature 97.5, saturation 98% on room air. Weight is 208 height 5 feet 5 inches. GENERAL APPEARANCE: Calm comfortable except head is atraumatic, normocephalic. NECK: Supple. There is no JVD. No goiter or neck masses. Crowding of posterior pharynx, Mallampati class IV. LUNGS: Clear to auscultation. HEART: Sounds regular rhythm. Normal S1, S2. No S3. No murmurs. ABDOMEN: Soft, nontender. No organomegaly. EXTREMITIES: No edema. No cyanosis or clubbing. Neurologically some tremors and some difficulty with mobility and gait. There is no focal neurological deficits. PSYCHIATRIC: Negative for anxiety or depression. IMPRESSION: 1. Symptomatic obstructive sleep apnea. The patient's machine is broken and the patient is very symptomatic with an Hixson score of 20. 2. Hypersomnia secondary to above. PLAN: 1. We will try to get this patient a replacement machine as soon as possible. The patient was referred to [facility]. We will keep the same pressure setting. 2. We will set up this patient for another BiPAP titration. 3. Continue the Jama medium-sized nose mask. 4. We will continue to follow and make further recommendations accordingly. MMODL / IJN: [id number] /
--- NOTE | 2017-03-09 14:19 | PN ---
PROGRESS NOTE ADDENDUM. DATE OF SERVICE: 03/02/2017 Please note that the patient is benefitting from the treatment. The patient uses the BiPAP machine every night without any interruption until it became totally nonfunctional. She has seen significant benefit and she has been very compliant in the past. As such, a new machine will be ordered for this patient to continue her JENNIFER treatment. Pressure of 11/7 cm of water. MMODL / IJN: [id number] /
== END | disposition home or self-care (01) ==
LOC: SLEEP 14:42
PROVIDERS: ATTEND Internal Medicine Critical Care Medicine
DX: G47.33 Obstructive sleep apnea (adult) (pediatric) (principal)

== ENCOUNTER → 2017-06-15 | Outpatient (CLI) | payer MEDICARE ==
--- NOTE | 2017-06-15 16:19 | PN ---
PROGRESS NOTE A 67-year-old female patient seeing me in followup regarding her compliance data and the BiPAP use. The patient has a known history of obstructive sleep apnea. Patient underwent recent BiPAP titration and she was titrated to a BiPAP pressure of 11/17 cm of water. She is currently new BiPAP auto, a ResMed unit. She is utilizing it every night. Her BiPAP use has been 28/30 based on a 30 day compliancy and she has been getting more than 4 hours 22 out of the 30 days. Average BiPAP use around 5 hours per night. Her leak factor is 32 L/minute. Her AHI is down to 2.9. She is feeling better and she is wearing her BiPAP every night; however, she has remained somewhat sleepy during the day and she may need a nap or 2. Note that the patient has had previous history of MINIATURE MODEL MAKER infection and this could be also contributing to her chronic hypersomnia and sleepiness. From my standpoint, her obstructive sleep apnea as well treated and her AHI is down to 2.9 while on the treatment. She is trying to lose weight. She is quite functional. Does not fall asleep during day-to-day activities. Weight has been fluctuating and the patient has gained some weight in order of 7-8 pounds since last visitation. She sees in our office Dr. Roger regarding her COPD. She also has diabetes, hypothyroidism, chronic back pain and previous history of glaucoma. REVIEW OF SYSTEMS: 12-point review of system was done. Constitutional is positive for weight gain. No fever, chills or night sweats. No insomnia. No choking. No nocturia. No grinding of the teeth. No sleepwalking or dry mouth. No anxiety or panic attacks. No palpitation. No heartburn. No gasping for air. No restlessness in lower extremities. No sleepwalking or sleep talking. No anxiety. No claustrophobia. No depression. No problems with memory or concentration. PHYSICAL EXAMINATION: BP is 156/76, pulse is 92, respirations 14, temperature 98.3, weight is 215.4, saturation 99% on room air. [place] score is 21. GENERAL APPEARANCE: Calm, comfortable. Head is atraumatic, normocephalic. Neck is supple. Mallampati class IV. There is no goiter or neck masses. LUNGS: Clear to auscultation. HEART: Sounds are regular. Normal S1, S2. No S3. No murmurs. ABDOMEN: Soft, nontender. No organomegaly. EXTREMITIES: No edema. No cyanosis or clubbing. IMPRESSION: 1. Symptomatic obstructive sleep apnea. Currently on BiPAP pressure 02/09. The patient is benefitting from the treatment. The patient demonstrated good compliancy data. 2. Residual hypersomnia despite being on BiPAP therapy and despite being adequately controlled in terms of obstructive sleep apnea. Patient's AHI while on treatment is down to 2.9 yet her [place] score is still elevated at 21. 3. Chronic obstructive pulmonary disease. 4. Diabetes. 5. History of deep venous thrombosis. 6. Hypothyroidism. 7. Chronic back pain. 8. Glaucoma. PLAN: I suspected the patient has residual hypersomnia is probably related to her previous MINIATURE MODEL MAKER infection. For now her BiPAP treatment is successful. Will encourage her to use her BiPAP for longer number of hours. She is compliant and she is trying her best to use every night. I think she is benefitting from the treatment. May consider addition of Provigil if no improvement in her sleepiness over the next few months. Encourage weight loss. Optimize sleep hygiene measures. We will continue to follow. She will be seen in our office and she follows up with Dr. Roger. MMTHEOL / IJN: [id number] /
== END ==
LOC: SLEEP 14:37
PROVIDERS: ATTEND Internal Medicine Critical Care Medicine
DX: G47.33 Obstructive sleep apnea (adult) (pediatric) (principal); G47.10 Hypersomnia, unspecified; G89.29 Other chronic pain; H40.9 Unspecified glaucoma; J44.9 Chronic obstructive pulmonary disease, unspecified; E11.9 Type 2 diabetes mellitus without complications; Z99.89 Dependence on other enabling machines and devices; Z86.79 Personal history of other diseases of the circulatory system

== ENCOUNTER → 2018-05-19 | Outpatient (CLI) | payer MEDICARE ==
--- NOTE | 2018-05-19 11:16 | CT ---
EXAMINATION TYPE: CT brain wo con DATE OF EXAM: 05/19/2018 COMPARISON: None HISTORY: complains of headaches CT DLP: 1121 mGycm Automated exposure control for dose reduction was used. TECHNIQUE: CT scan of the head is performed without contrast. FINDINGS: There is no acute intracranial hemorrhage or midline shift identified. There is diffuse v entricular and sulcal prominence consistent with diffuse age-related cerebral atrophy. Atherosclerosi s is noted of the intracranial vasculature. There no suspicious extra-axial fluid collection. The olayinka bes are intact and the visualized sinuses are clear. IMPRESSION: 1. No acute intracranial process. No nonenhanced CT evidence of intracranial mass. If there is furthe r concern enhanced MRI could be performed for increased sensitivity. 2. Mild age-related cerebral atrophy.
== END ==
LOC: RADCTMAIN 10:25
PROVIDERS: ATTEND Family Medicine
DX: G31.1 Senile degeneration of brain, not elsewhere classified (principal)
CPT/HCPCS: 70450

== ENCOUNTER → 2018-10-10 | Outpatient (CLI) | payer MEDICARE ==
[2018-10-10 12:21] LABS: African American GFR (CKD) >90 (>60 ml/min/1.73 sqM); Blood Urea Nitrogen 15 mg/dL (7-17)
== END | disposition home or self-care (01) ==
LOC: LABWHC1 11:38
PROVIDERS: ATTEND Physical Medicine & Rehabilitation
DX: Z01.812 Encounter for preprocedural laboratory examination (principal); N28.9 Disorder of kidney and ureter, unspecified
CPT/HCPCS: 36415; 82565; 84520

== ENCOUNTER → 2018-11-14 | Outpatient (CLI) | payer MEDICARE ==
--- NOTE | 2018-11-15 09:02 | BD ---
EXAMINATION TYPE: Axial Bone Density DATE OF EXAM: 11/14/2018 COMPARISON: 2008 CLINICAL HISTORY: post menopausal Height: 5'4 Weight: 191 FRAX RISK QUESTIONS: History of Fracture in Adulthood: y Secondary Osteoporosis: RISK FACTORS HISTORY OF: Surgery to /Hip(right/): total hip When: 2006 Postmenopausal woman: y MEDICATIONS: Additional Medications: blood pressure, Additional History: EXAM MEASUREMENTS: Bone mineral densitometry was performed using the [employer] Star System. Bone mineral density as measured about the Lumbar spine is: ----- L1-L4(G/cm2): 1.207 T Score Values are as follows: ----- L2: -0.3 ----- L3:-0.4 ----- L4: 1.9 ----- L1-L4:0.2 Bone mineral density has: Decreased -2.5% since study of: 09/01/2002 Bone mineral density about the L hip (g/cm2): 0.863 T Score values are as follows: -----L Neck:-1.2 -----L Intertrochanter:-1.1 Bone mineral density has: Increased Decreased -5.9% since study of:08/07/2008 IMPRESSION: Osteopenia (T Score between -2.5 and -1). There is slightly increased risk of fracture and the patient may be considered for treatment. Re-Screen 2-5 years. NOTE: T-SCORE=SD OF THE YOUNG ADULT MEAN.
--- NOTE | 2018-11-15 10:23 | MM ---
Reason for exam: screening (asymptomatic). Last mammogram was performed 2 years and 1 month ago. History: Patient is postmenopausal. Benign stereotactic core biopsy of the right breast, March 26, 1999. Core biopsy of the right breast. Physical Findings: A clinical breast exam by your physician is recommended on an annual basis and results should be correlated with mammographic findings. MG 3D Screening Mammo W/Cad Bilateral CC and MLO view(s) were taken. Prior study comparison: October 07, 2016, bilateral MG 3d screening mammo w/cad. September 17, 2015, bilateral MG 3d screening mammo w/cad. There are scattered fibroglandular densities. Benign appearing bilateral calcifications. No suspicious abnormality. Right biopsy marker noted. No significant changes when compared with prior studies. ASSESSMENT: Benign, BI-RAD 2 RECOMMENDATION: Routine screening mammogram of both breasts in 1 year.
== END | disposition home or self-care (01) ==
LOC: RADBDWWP 14:20
PROVIDERS: ATTEND Family Medicine
DX: Z12.31 Encounter for screening mammogram for malignant neoplasm of breast (principal); M85.80 Other specified disorders of bone density and structure, unspecified site; Z78.0 Asymptomatic menopausal state
CPT/HCPCS: 77063; 77067; 77080

== ENCOUNTER → 2019-09-25 | Outpatient (CLI) | payer MEDICARE ==
[2019-09-25 12:32] LABS: HCT 38.4 % (34.0-46.0); HGB 12.5 gm/dL (11.4-16.0); MCH 30.7 pg (25.0-35.0); MCHC 32.6 g/dL (31.0-37.0); MCV 94.1 fL (80.0-100.0); Platelet Count 174 k/uL (150-450); RBC 4.08 m/uL (3.80-5.40); RDW 12.5 % (11.5-15.5); WBC 5.9 k/uL (3.8-10.6)
[2019-09-25 12:50] LABS: Bacteria,Urine Rare /hpf; Mucus,Urine Rare /hpf; RBC,Urine 5 /hpf (0-5); Squamous Epithelial Cell,Urine 5 /hpf (0-4); WBC,Urine 21 /hpf (0-5)
[2019-09-25 12:55] LABS: INR 0.9 (<1.2); Prothrombin Time 9.8 sec (9.0-12.0)
[2019-09-25 12:56] LABS: ALT 24 U/L (4-34); AST 29 U/L (14-36); African American GFR (CKD) >90 (>60 ml/min/1.73 sqM); Albumin 3.8 g/dL (3.5-5.0); Alkaline Phosphatase 96 U/L (38-126); Anion Gap 6 mmol/L; Blood Urea Nitrogen 11 mg/dL (7-17); Calcium 9.1 mg/dL (8.4-10.2); Carbon Dioxide 30 mmol/L (22-30); Chloride 101 mmol/L (98-107); Glucose 123 mg/dL (74-99); Non-African American GFR(CKD) >90 (>60 ml/min/1.73 sqM); Potassium 4.8 mmol/L (3.5-5.1); Sodium 137 mmol/L (137-145); Total Bilirubin 0.2 mg/dL (0.2-1.3); Total Protein 6.4 g/dL (6.3-8.2)
[2019-09-25 13:25] LABS: Protein,Urine 1+ (Negative)
[2019-09-25 13:26] LABS: Appearance,Urine Clear (Clear); Bilirubin,Urine Negative (Negative); Color,Urine Yellow; Glucose,Urine (UA) Negative (Negative); Ketones,Urine Negative (Negative)
[2019-09-25 13:27] LABS: Blood,Urine Small (Negative); Leukocyte Esterase,Urine Large (Negative); Nitrite,Urine Negative (Negative); Urobilinogen,Urine <2.0 mg/dL (<2.0)
== END | disposition home or self-care (01) ==
LOC: LABPAT 11:04
PROVIDERS: ATTEND Orthopaedic Surgery
DX: Z01.818 Encounter for other preprocedural examination (principal); Z01.812 Encounter for preprocedural laboratory examination; Z79.01 Long term (current) use of anticoagulants
CPT/HCPCS: 36415; 80053; 81001; 85027; 85610; 85730; 86850; 86900; 86901; 87070

== ENCOUNTER 2019-10-02 10:23 | Inpatient (IN) | payer MEDICARE ==
[2019-09-29 11:17] VITALS: BMI 26.6
[~2019-10-02 10:23] MED LIST changes: +ACETAMINOPHEN TAB 500 MG TAB PO ONE; -DEXAMETHASONE SOD PHOSPHATE 10 MG/ML 1 ML VIAL IV ONE; +GABAPENTIN 300 MG CAP PO ONE; -HYDROmorphone 1 MG/ML 1 ML SYRINGE IVP PRN; -LACTATED RINGERS 1,000 ML IV SCH; +MELOXICAM 7.5 MG TAB PO ONE; -MOXIFLOXACIN HCL 0.5% DROPS 3 ML BTL OP ONE; +ROPIVACAINE 246.25 MG, EPINEPHrine 0.5 MG, KETOROLAC 30 MG, cloNIDine HCL/PF 80 MCG, WA... MISCELLANE ONE; -TETRACAINE 0.5% OPHTH (PF) DROPS 4 ML BTL OP ONE; -TIMOLOL 0.5% OPHTH SOLN (PF) 0.2 ML DROPERETTE OP ONE; +TRANEXAMIC ACID 1,000 MG in SODIUM CHLORIDE 0.9% 100 ML IVPB ONE; +VANCOMYCIN 1,000 MG in SODIUM CHLORIDE 0.9% 250 ML IVPB ONE; +fentaNYL (PF) 50 MCG/ML 2 ML AMP IV PRN
[2019-10-02] MEDS ORDERED: ONDANSETRON 4 MG/2 ML VIAL ONE (11:29)
[2019-10-02] MEDS ORDERED: ACETAMINOPHEN TAB 500 MG TAB ONE (11:29)
[2019-10-02] MEDS: LACTATED RINGERS 1,000 ML IV SCH (11:40)
[2019-10-02] MEDS ORDERED: LIDOCAINE 1% (10MG/ML) FOR IV START INTRADERMA ONE (11:41)
[2019-10-02 11:47] LABS: Glucose,Whole Blood 117 mg/dL (75-99)
[2019-10-02] MEDS ORDERED: SODIUM CHLORIDE 0.9% IRRIG 1,000 ML BTL IRRIGATION ONE (13:21)
[2019-10-02] MEDS ORDERED: PROPOFOL 10 MG/ML 20 ML VIAL IV ONE (13:21)
[2019-10-02] MEDS ORDERED: MIDAZOLAM 2 MG/2 ML VIAL ONE (13:21)
[2019-10-02] MEDS ORDERED: NEOSTIGMINE 1 MG/ML 10 ML VIAL ONE (13:21)
[2019-10-02] MEDS ORDERED: HEPARIN SODIUM,PORCINE 10,000 UNIT/ML 1 ML VIAL ONE (13:21)
[2019-10-02] MEDS ORDERED: PHENYLEPHRINE-0.9% NACL SYG 1 MG/10 ML SYRINGE ONE (13:21)
[2019-10-02] MEDS ORDERED: TRANEXAMIC ACID 1,000 MG/10 ML VIAL ONE (13:21)
[2019-10-02] MEDS ORDERED: SODIUM CHLORIDE 0.9% 100 ML BAG ONE (13:21)
[2019-10-02] MEDS ORDERED: GLYCOPYRROLATE 0.2 MG/ML 2 ML VIAL ONE (13:21)
[2019-10-02] MEDS ORDERED: ROCURONIUM BROMIDE 10 MG/ML 5 ML VIAL IV ONE (13:21)
[2019-10-02] MEDS ORDERED: fentaNYL (PF) 50 MCG/ML 2 ML AMP ONE (13:21)
[2019-10-02] MEDS ORDERED: SUCCINYLCHOLINE CHLORIDE 100 MG/5 ML SYR IV ONE (13:21)
[2019-10-02] MEDS ORDERED: LIDOCAINE 1% INJ 10MG/ML (20 ML MDV) ONE (13:21)
[2019-10-02] MEDS ORDERED: SODIUM CHLORIDE 0.9% 50 ML with ceFAZolin 2,000 MG IV ONE ×2 (13:57)
[2019-10-02] MEDS ORDERED: LACTATED RINGERS 1,000 ML IV ONE ×2 (14:51→17:13)
[2019-10-02] MEDS ORDERED: THROMBIN (BOVINE) 5,000 UNIT VIAL TOPICAL ONE (15:14)
[2019-10-02] MEDS ORDERED: GELATIN SPONGE,ABSORB (LARGE) 1 EACH SPONGE TOPICAL ONE (15:14)
--- NOTE | 2019-10-02 15:39 | P.OP ---
Date of Procedure: 10/02/19 Procedure(s) Performed: PREOPERATIVE DIAGNOSIS: Left hip severe osteoarthritis POSTOPERATIVE DIAGNOSIS: Left hip severe osteoarthritis OPERATION: Left hip total replacement arthroplasty (uncemented implantation with metal on polyethylene articulation). ANESTHESIA: Spinal ESTIMATED BLOOD LOSS: 750 ml. VALIDATION TECHNICIAN: Jef Mancia PA-C (assistance with: patient positioning, retraction, exposure, hemostasis, leg positioning, implantation, irrigation, closure, dressing) COMPLICATIONS: None apparent. COMPONENTS IMPLANTED: Darya continuum acetabular cup with cluster holes; continuum longevity 15 elevated liner, 32 mm id; Darya VerSys Fiber Metal stem; VerSys 32 mm femoral head with 3.5 mm neck length extension INDICATIONS: Ms. Frost is a 69-year-old female with significant end-stage osteoarthritis involving the left hip and commensurate severe symptoms. She presents to the operating room today for total hip replacement. I have discussed the steps of the operation as well as potential risks and complications as being inclusive of, but not limited to: Leading, infection, scarring, discomfort, or vessel and/or nerve damage, need for further surgery, loosening, dislocation, wear, osteolysis, limb length inequality, fracture, blood clot, pulmonary embolism, , persistent limp, and other risks. The patient is aware these risks and wishes to proceed with surgery and has signed a consent form. PROCEDURE: After appropriate consent was obtained, the patient was taken to the operating room and placed in supine position. Spinal anesthetic was administered and after confirmation of adequate anesthesia, the patient was placed into the lateral decubitus position with the left side up. Care was taken to make sure that all pressure points were adequately padded and he was stabilized to the table with a [place] hip positioner. The left hip was prepped and draped in the usual aseptic fashion using a combination of ChloraPrep and alcohol. Ioban drape was used for the case and the patient received intravenous antibiotics prior to the incision. "Time out" was called, confirming patient identity, side, procedure, availability of implants and administration of antibiotics. The incision was created directly over the greater trochanter and carried slightly posteriorly for a posterior approach to the hip. The incision was then deepened down to subcutaneous tissue and fascia maria luz. Fascia maria luz was split in line with the incision and split proximally along the fibers of the gluteus pebbles. The underlying fibers of the muscle were teased apart using finger dissection and bleeding vessels were picked up and coagulated. Retractor was then placed posteriorly consisting of a blunt Ifdencio. The short external rotators and capsule were exposed using good visualization of the attachment of the external rotators to the femur was established. The short external rotators and capsule were released using electrocautery from their femoral attachments. A hockey stick shaped incision was created in the capsule. Joint fluid was evacuated and the patient's hip was able to be dislocated fairly easily. The patient's femoral head was severely arthritic with eburnated bone present and a 360 degrees reed of osteophytes. The femoral neck cut was created approximately 1 cm superior to the lesser trochanter using a reciprocating saw. Once this cut was performed, it was noted that there was excessive nonpulsatile bleeding from the anterior aspect of the femoral neck. Presumably, this patient had a large circumflex vein in this region. The femoral head and neck fragment was removed and the bleeding area was exposed and treated with packing, thrombin-soaked Gelfoam, and administration of another gram of intravenous tranexamic acid, and the Eyepica CareOneis device for cautery. Control was then obtained of the bleeding, but not before approximately 500 mL of blood loss was sustained. This patient's blood pressure remained stable throughout the case. Attention was then directed to the acetabulum. An anterior acetabular retractor was applied followed by posterior retraction of the capsule with a Meyerding retractor. This afforded good visualization into the acetabular cavity. Soft tissue was removed and residual cartilage within the acetabular vault was removed using a curette. Labrum was removed using a long-handled knife. Attention was then directed to reaming. The size 44 reamer was used first, followed by increasing increments until the final size reamer w as used. Please see the implantation sheet for exact sizes used for the components. Once the final reamer had been utilized to expand the socket it was noted that there was a good supportive bone around the acetabular socket and no further reaming needed to be performed. The trial the same size as the last reamer used was then impacted into the acetabular vault and found to have good fit. The acetabular component, one size (2mm) greater than the trial was then called for. The cluster holes were placed posteriorly and the component was impacted in a position of approximately 40 degrees abduction and 20 degrees anteversion. This matched this patient's kotlik anteversion and it was noted that the cup had excellent stability without need for additional screw fixation. Attention was then directed to the acetabular liner. The anteversion and abduction angle of the component was noted to be very good. A 15 elevated liner was used and locked into position. Osteophytes around the posterior and inferior aspect of the acetabulum were trimmed as necessary to prevent any impingement. Attention was then directed back to the proximal femur. Retractors were placed around the proximal femur and box osteotome was used followed by canal finder and trochanteric reamer. Cylindrical reaming was performed. Progressive broaching was then performed starting with a #10 broach and progressing final s ize, in a position of 15 degrees anteversion. [place] anteversion was within 5 degrees of stem position. The final size broach had excellent fit and fill of the patient's metaphysis and diaphysis. Trial reduction was then performed starting with size 32 mm femoral head and various neck combination of stability, limb length equality, and soft tissue tension. Trial components were then removed. The canal was lavaged and the final size femoral stem component was impacted into position. The implant fit very well and had excellent stability. The femoral head was then impacted onto the Mason taper. Blood and debris were removed from the acetabular component and the hip was then reduced and checked for stability, limb length and soft tissue tension. These parameters found to be satisfactory, the wound was then thoroughly irrigated with normal saline. Final hemostasis was obtained using electrocautery and IV tranexamic acid, 1 g given at the time of prepping and draping, 1 g at the time of blood loss sustained from the anterior femur, and another 1 g given at the time of closure. Range of motion of the hip was performed in all directions with attention to any further bleeding from the anterior femur to make sure that the previous cauterization of the area was adequate. Local anesthetic solution consisting of ropivacaine with epinephrine, clonidine, and ketorolac was also used throughout the case targeting the capsule, fascia, and skin. Closure of the capsule was performed meticulously using #3 Vicryl suture. Four [id number] sutures were placed in the posterior capsule along with repair of the external rotators. The fascia maria luz was then repaired using combination of #3 Vicryl suture in interrupted fashion and Quill and running fashion. 2-0 Vicryl suture was used for the subcutaneous tissues and 3-0 Quill for the skin. Dermabond or Steri-Strips were then applied. The patient tolerated the procedure well. There were no complications and the wound bed was dry and there was no need for drain placement. Sterile dressing was then applied and the patient was carefully removed from the operating room table, placed on the stretcher and was taken to the recovery room in stable condition. Sponge and needle counts were correct.
[2019-10-02] MEDS ORDERED: ONDANSETRON 4 MG/2 ML VIAL IVP PRN (15:52)
[2019-10-02] MEDS ORDERED: DIAZEPAM 5 MG TAB PO PRN (15:52)
[2019-10-02] MEDS ORDERED: HYDROmorphone 0.5 MG/0.5 ML SYRINGE IVP PRN ×3 (15:52)
[2019-10-02] MEDS ORDERED: NALOXONE 0.4 MG/ML 1 ML VIAL IV PRN (15:52)
[2019-10-02] MEDS ORDERED: MAGNESIUM HYDROXIDE 2,400 MG/10 ML CUP PO PRN (15:52)
[2019-10-02] MEDS ORDERED: hydrOXYzine PAMOATE 25 MG CAP PO PRN (15:52)
--- NOTE | 2019-10-02 16:26 | XR ---
Left hip HISTORY: Status post left hip arthroplasty Single frontal view of the left hip Patient is status post left hip arthroplasty. There is lucency in the soft tissues consistent with po stop change. There is anatomic alignment. IMPRESSION: Orthopedic follow-up.
[2019-10-02 16:27] LABS: HCT 29.6 % (34.0-46.0); MCH 30.8 pg (25.0-35.0); MCHC 32.6 g/dL (31.0-37.0); MCV 94.3 fL (80.0-100.0); Mean Platelet Volume 6.7; Platelet Count 153 k/uL (150-450); RBC 3.14 m/uL (3.80-5.40); RDW 12.6 % (11.5-15.5); WBC 13.9 k/uL (3.8-10.6)
[2019-10-02 16:30] LABS: HGB 9.7 gm/dL (11.4-16.0)
[2019-10-02] MEDS ORDERED: FLUTICASONE 44 MCG INHALER INHALATION PRN (18:31)
[2019-10-02] MEDS ORDERED: NITROGLYCERIN SL TABS 0.4 MG TAB SUBLINGUAL PRN (18:31)
[2019-10-02] MEDS: SODIUM CHLORIDE 0.9% 1,000 ML IV SCH (19:21)
[2019-10-02] MEDS ORDERED: MULTIVIT WITH CALCIUM IRON MIN PO SCH (21:00)
[2019-10-02] MEDS ORDERED: POTASSIUM 200 MG PO SCH (21:00)
[2019-10-02] MEDS ORDERED: ASPIRIN 81 MG PO SCH (21:00)
[2019-10-02] MEDS: APIXABAN 2.5 MG TABLET PO SCH (21:01)
--- NOTE | 2019-10-02 22:00 | CONS ---
CONSULTATION DATE OF SERVICE: 10/02/2019 REASON FOR CONSULTATION: Advice regarding diabetes and other multiple medical issues, requested by Dr. Kim. HISTORY OF PRESENT ILLNESS: This 69-year-old woman with a past medical history of multiple medical problems, including history of asthma, COPD, diabetes mellitus, DVT, history of GERD, hypertension, DJD, history of pneumonia, history of back surgery, history of DJD, history of bladder surgery, being followed by Dr. Josy Man in the office setting, underwent left total hip replacement. Patient is being closely monitored. No chest pain. No palpitations. No fever. PAST MEDICAL HISTORY: History of asthma, COPD, diabetes mellitus, DVT, GERD, hypertension, DJD, history of pneumonia, sleep apnea, hypothyroidism. HOME MEDICATIONS: 1. Primidone. 2. Potassium. 3. Nitroglycerin. 4. Multivitamins. 5. Singulair. 6. Zestril. 7. Synthroid. 8. Fluticasone. 9. Pepcid. 10.Bentyl. 11.Flexeril. 12.Eliquis. 13.Tylenol. ALLERGIES: LOVENOX, ERYTHROMYCIN, LATEX, MORPHINE SULFATE, TETRACYCLINE, ADHESIVES. FAMILY HISTORY: History of hypertension and hyperlipidemia. SOCIAL HISTORY: No history of smoking. No history of alcohol intake. REVIEW OF SYSTEMS: ENT: No diminished hearing. No diminished vision. CARDIOVASCULAR SYSTEM: No angina, palpitations. RESPIRATORY SYSTEM: No cough, hemoptysis. GI: No nausea, vomiting. : No dysuria or retention. NERVOUS SYSTEM: No numbness, weakness. ALLERGY/IMMUNOLOGY: No asthma, hayfever. MUSCULOSKELETAL: As mentioned earlier. HEMATOLOGY/ONCOLOGY: No history of anemia. ENDOCRINE: As mentioned earlier. CONSTITUTIONAL: As mentioned earlier. DERMATOLOGY: Negative. RHEUMATOLOGY: Negative. PSYCHIATRY: As mentioned earlier. PHYSICAL EXAMINATION: Patient is alert, oriented x3. The pulse is 57, blood pressure 133/52, respirations 16, temperature 97.4, pulse ox 100% on CPAP. HEENT: Conjunctivae normal. NECK: No jugular venous distention. CARDIOVASCULAR SYSTEM: S1, S2 muffled. RESPIRATORY SYSTEM: Breath sounds diminished at the bases. No rhonchi. No crackles. ABDOMEN: Soft, non-tender. No mass palpable. LEGS: Status post surgery. NERVOUS SYSTEM: Higher functions as mentioned earlier. Moves all 4 limbs. No focal motor or sensory deficit. LYMPHATICS: No lymph node palpable in neck, axillae or groin. SKIN: No ulcer, rash, bleeding. JOINTS: No active deforming arthropathy. LABS: WBC 13.2, hemoglobin 9.7. ASSESSMENT: 1. Status post left hip total replacement arthroplasty. 2. Increased white count, possibly reactive. 3. Asthma, chronic obstructive pulmonary disease. 4. Diabetes mellitus, type 2. 5. History of deep venous thrombosis. 6. History of gastroesophageal reflux disease. 7. Hypertension. 8. History of degenerative joint disease. 9. History of sleep apnea. 10.History of glaucoma. 11.History of deep vein thrombosis. 12.History of BiPAP. 13.Obesity with body mass index of 31.6. RECOMMENDATIONS AND DISCUSSION: In this 69-year-old woman who presented with multiple complex medical issues, at this time I would recommend to continue the current medications, continue with symptomatic treatment. Repeat labs in the morning. UA with micro. Resume the Eliquis. Continue to monitor. Further recommendations to follow. The patient may be asked to follow with Dr. Josy Man closely after discharge. Thank you, Dr. Kim, for letting us participate in the care of this patient. MMODL / IJN: [id number] /
[2019-10-02] MEDS: ONDANSETRON 4 MG/2 ML VIAL IVP PRN (22:19)
[2019-10-02] MEDS: DICYCLOMINE 10 MG CAP PO SCH (23:26)
[2019-10-02] MEDS: SENNOSIDES-DOCUSATE SODIUM 1 EACH TAB PO SCH (23:26)
[2019-10-02] MEDS: PRIMIDONE 50 MG TAB PO SCH (23:27)
[2019-10-02] MEDS: MONTELUKAST 10 MG TAB PO SCH (23:27)
[2019-10-02] MEDS: CYCLOBENZAPRINE 10 MG TAB PO SCH (23:27)
[2019-10-02 23:42] LABS: Glucose,Whole Blood 201 mg/dL (75-99)
[2019-10-02] MEDS ORDERED: VANCOMYCIN 1,000 MG in SODIUM CHLORIDE 0.9% 250 ML IVPB ONE (23:45)
[2019-10-03] MEDS: INSULIN ASPART (NovoLOG) 100 UNIT/ML VIAL SQ SCH ×5 (00:15→22:32)
[2019-10-03 00:17] LABS: ALT 20 U/L (4-34); AST 37 U/L (14-36); African American GFR (CKD) >90 (>60 ml/min/1.73 sqM); Albumin 2.8 g/dL (3.5-5.0); Alkaline Phosphatase 78 U/L (38-126); Anion Gap 5 mmol/L; Blood Urea Nitrogen 14 mg/dL (7-17); Calcium 8.1 mg/dL (8.4-10.2); Carbon Dioxide 26 mmol/L (22-30); Chloride 102 mmol/L (98-107); Glucose 184 mg/dL (74-99); Non-African American GFR(CKD) >90 (>60 ml/min/1.73 sqM); Potassium 4.8 mmol/L (3.5-5.1); Sodium 133 mmol/L (137-145); Total Bilirubin 0.3 mg/dL (0.2-1.3); Total Protein 4.9 g/dL (6.3-8.2)
[2019-10-03] MEDS: HYDROcodone/APAP 5-325MG 1 EACH TAB PO PRN ×4 (01:41→22:35)
[2019-10-03] MEDS: LEVOTHYROXINE 75 MCG TAB PO SCH (05:51)
[2019-10-03] MEDS: SODIUM CHLORIDE 0.9% 1,000 ML IV SCH ×3 (06:05→23:11)
[2019-10-03] MEDS: LACTATED RINGERS 1,000 ML IV SCH (06:06)
[2019-10-03 06:55] LABS: Basophils % (A) 0 %; Eosinophils % (A) 0 %; HCT 24.3 % (34.0-46.0); Lymphocytes # (A) 1.3 k/uL (1.0-4.8); Lymphocytes % (A) 14 %; MCH 30.9 pg (25.0-35.0); MCHC 32.9 g/dL (31.0-37.0); MCV 93.8 fL (80.0-100.0); Mean Platelet Volume 6.8; Monocytes # (A) 0.5 k/uL (0-1.0); Monocytes % (A) 6 %; Neutrophils # (A) 7.3 k/uL (1.3-7.7); Neutrophils % (A) 79 %; Platelet Count 154 k/uL (150-450); RBC 2.59 m/uL (3.80-5.40); RDW 12.8 % (11.5-15.5); WBC 9.3 k/uL (3.8-10.6)
[2019-10-03 06:56] LABS: Glucose,Whole Blood 146 mg/dL (75-99)
[2019-10-03] MEDS: FAMOTIDINE 20 MG TAB PO SCH (07:50)
[2019-10-03] MEDS: LISINOPRIL 2.5 MG TAB PO SCH (08:01)
[2019-10-03 08:37] LABS: Appearance,Urine Clear (Clear); Bilirubin,Urine Negative (Negative); Blood,Urine Negative (Negative); Color,Urine Yellow; Glucose,Urine (UA) Negative (Negative); Ketones,Urine Trace (Negative); Leukocyte Esterase,Urine Negative (Negative); Nitrite,Urine Negative (Negative); PH, Urine 5.5 (5.0-8.0); Protein,Urine Trace (Negative); Specific Gravity,Urine 1.031 (1.001-1.035); Urobilinogen,Urine <2.0 mg/dL (<2.0)
--- NOTE | 2019-10-03 08:41 | P.PN ---
Subjective Progress Note Date: 10/03/19 Principal diagnosis: Left total hip arthroplasty This is a 69 year-old female post left total hip arthroplasty. This is post-op day 1. The patient was evaluated at the bedside today. She states she is dizzy and nauseated this morning. The patient denies vomiting, abdominal pain, shortness of breath, and chest pain this morning. She states her pain is c ontrolled at this time. The patient has not been up with physical therapy. During her procedure, she experienced a 750 mL blood loss and her hemoglobin today is 8.0. Objective - Vital Signs Vital signs: Vital Signs Temp 98.6 F 10/03/19 01:28 Pulse 72 10/03/19 01:28 Resp 16 10/03/19 01:28 BP 103/62 10/03/19 01:28 Pulse Ox 91 L 10/03/19 01:28 Intake & Output 10/02/19 10/03/19 10/03/19 18:59 06:59 18:59 Intake Total 2300 Output Total 750 750 Balance 1550 -750 Weight 86 kg 86 kg Intake: IV 2300 Output: Urine 750 Straight 750 Estimated Blood Loss 750 - Exam The patient does not appear in acute distress. Alert and orientated x3. Dressing is clean dry and intact. Incision appears fine with no erythema or active drainage. Calf is soft and nontender. Good foot and ankle motion w ithout difficulty. Sensation and circulatory status is intact. - Labs CBC & Chem 7: 10/03/19 06:09 10/02/19 23:28 Labs: Abnormal Lab Results - Last 24 Hours (Table) 10/02/19 10/02/19 10/02/19 Range/Units 11:29 16:14 23:28 WBC 13.9 H (3.8-10.6) k/uL RBC 3.14 L (3.80-5.40) m/uL Hgb 9.7 L D (11.4-16.0) gm/dL Hct 29.6 L (34.0-46.0) % Sodium 133 L (137-145) mmol/L Creatinine 0.48 L (0.52-1.04) mg/dL Glucose 184 H (74-99) mg/dL POC Glucose (mg/dL) 117 H (75-99) mg/dL Calcium 8.1 L (8.4-10.2) mg/dL AST 37 H (14-36) U/L Total Protein 4.9 L (6.3-8.2) g/dL Albumin 2.8 L (3.5-5.0) g/dL Urine Protein (Negative) Urine Ketones (Negative) 10/02/19 10/03/19 10/03/19 Range/Units 23:39 06:09 06:54 WBC (3.8-10.6) k/uL RBC 2.59 L (3.80-5.40) m/uL Hgb 8.0 L D (11.4-16.0) gm/dL Hct 24.3 L (34.0-46.0) % Sodium (137-145) mmol/L Creatinine (0.52-1.04) mg/dL Glucose (74-99) mg/dL POC Glucose (mg/dL) 201 H 146 H (75-99) mg/dL Calcium (8.4-10.2) mg/dL AST (14-36) U/L Total Protein (6.3-8.2) g/dL Albumin (3.5-5.0) g/dL Urine Protein (Negative) Urine Ketones (Negative) 10/03/19 Range/Units 07:25 WBC (3.8-10.6) k/uL RBC (3.80-5.40) m/uL Hgb (11.4-16.0) gm/dL Hct (34.0-46.0) % Sodium (137-145) mmol/L Creatinine (0.52-1.04) mg/dL Glucose (74-99) mg/dL POC Glucose (mg/dL) (75-99) mg/dL Calcium (8.4-10.2) mg/dL AST (14-36) U/L Total Protein (6.3-8.2) g/dL Albumin (3.5-5.0) g/dL Urine Protein Trace H (Negative) Urine Ketones Trace H (Negative) Assessment and Plan (1) Primary osteoarthritis of left hip Current Visit: Yes Status: Acute Code(s): M16.12 - UNILATERAL PRIMARY OSTEOARTHRITIS, LEFT HIP SNOMED Code(s): 661524622015316 (2) Status post left hip replacement Current Visit: Yes Status: Acute Code(s): Z96.642 - PRESENCE OF LEFT ARTIFICIAL HIP JOINT SNOMED Code(s): 906136234 Plan: 1. Continue pain control 2. Anticoagulation with Eliquis and Aspirin 3. Start physical therapy and ambulation 4. Recheck CBC in am 5. Anticipate discharge home with homecare in the next 1-2 day
[2019-10-03] MEDS ORDERED: POTASSIUM 300 MG PO SCH (09:00)
[2019-10-03] MEDS: FLUTICASONE 44 MCG INHALER INHALATION SCH ×2 (10:31→18:50)
[2019-10-03] MEDS: ALBUTEROL NEBULIZED 2.5 MG/3 ML INHALATION SCH ×2 (10:31→18:50)
[2019-10-03] MEDS: DICYCLOMINE 10 MG CAP PO SCH ×2 (11:08→22:13)
[2019-10-03] MEDS: ASPIRIN 81 MG PO SCH (11:08)
[2019-10-03] MEDS: MULTIVITAMINS, THERA 1 EACH TAB PO SCH (11:08)
[2019-10-03] MEDS: APIXABAN 2.5 MG TABLET PO SCH ×2 (11:08→22:13)
[2019-10-03 11:49] LABS: Glucose,Whole Blood 174 mg/dL (75-99)
[2019-10-03 14:15] LABS: Hemoglobin A1C 6.4 % (4.0-6.0)
[2019-10-03 17:03] LABS: Glucose,Whole Blood 243 mg/dL (75-99)
[2019-10-03 20:18] LABS: Glucose,Whole Blood 169 mg/dL (75-99)
[2019-10-03] MEDS: MONTELUKAST 10 MG TAB PO SCH (22:13)
[2019-10-03] MEDS: PRIMIDONE 50 MG TAB PO SCH (22:13)
[2019-10-03] MEDS: CYCLOBENZAPRINE 10 MG TAB PO SCH (22:13)
[2019-10-03] MEDS: SENNOSIDES-DOCUSATE SODIUM 1 EACH TAB PO SCH (22:14)
[2019-10-04] MEDS: HYDROcodone/APAP 5-325MG 1 EACH TAB PO PRN ×4 (04:32→22:41)
[2019-10-04 06:43] LABS: Basophils % (A) 0 %; Eosinophils # (A) 0.1 k/uL (0-0.7); Eosinophils % (A) 1 %; HCT 20.2 % (34.0-46.0); Lymphocytes # (A) 1.1 k/uL (1.0-4.8); Lymphocytes % (A) 16 %; MCV 94.1 fL (80.0-100.0); Monocytes # (A) 0.4 k/uL (0-1.0); Monocytes % (A) 6 %; Neutrophils # (A) 5.3 k/uL (1.3-7.7); Neutrophils % (A) 75 %; Platelet Count 119 k/uL (150-450); RBC 2.14 m/uL (3.80-5.40); RDW 12.8 % (11.5-15.5); WBC 7.1 k/uL (3.8-10.6)
[2019-10-04 06:51] LABS: Glucose,Whole Blood 208 mg/dL (75-99)
[2019-10-04 07:00] LABS: HGB 6.9 gm/dL (11.4-16.0)
[2019-10-04] MEDS: LEVOTHYROXINE 75 MCG TAB PO SCH (07:30)
[2019-10-04] MEDS: LEVOTHYROXINE 100 MCG TAB PO SCH (07:30)
[2019-10-04] MEDS: ONDANSETRON 4 MG/2 ML VIAL IVP PRN (07:46)
[2019-10-04] MEDS: LACTATED RINGERS 1,000 ML IV SCH (07:47)
[2019-10-04] MEDS: SODIUM CHLORIDE 0.9% 1,000 ML IV SCH ×3 (07:47→23:10)
[2019-10-04] MEDS: INSULIN ASPART (NovoLOG) 100 UNIT/ML VIAL SQ SCH ×4 (07:47→20:59)
[2019-10-04] MEDS: DICYCLOMINE 10 MG CAP PO SCH ×2 (07:50→21:00)
[2019-10-04] MEDS: ALBUTEROL NEBULIZED 2.5 MG/3 ML INHALATION SCH ×2 (07:57→20:46)
[2019-10-04] MEDS: FLUTICASONE 44 MCG INHALER INHALATION SCH ×2 (07:57→20:47)
[2019-10-04] MEDS: LISINOPRIL 2.5 MG TAB PO SCH (08:00)
[2019-10-04] MEDS: FAMOTIDINE 20 MG TAB PO SCH (08:00)
--- NOTE | 2019-10-04 09:03 | P.PN ---
Subjective Progress Note Date: 10/04/19 Principal diagnosis: Primary osteoarthritis left hip. Status post total left hip arthroplasty. This is a 69 year-old female post left total hip arthroplasty. This is post-op day 2. The patient was evaluated at the bedside today. She states she is still a little bit dizzy and nauseated this morning. The patient denies vomiting, abdominal pain, shortness of breath, and chest pain this morning. She states her pain is controlled at this time. The patient has not been up with physical therapy, other than getting up in a chair yesterday. During her procedure, she experienced a 750 mL blood loss and her hemoglobin today is 6.9. She is pending a blood transfusion today. She also had some urinary retention yesterday and Mejia catheter was replaced. Objective - Vital Signs Vital signs: Vital Signs Temp 98.5 F 10/04/19 07:00 Pulse 70 10/04/19 08:24 Resp 17 10/04/19 07:00 BP 126/69 10/04/19 07:00 Pulse Ox 95 10/04/19 07:00 Intake & Output 10/03/19 10/04/19 10/04/19 18:59 06:59 18:59 Intake Total 1200 100 Output Total 1150 750 Balance 50 -750 100 Intake: Oral 1200 100 Output: Urine 1150 750 Straight 1150 650 Other: Voiding Method Indwelling Catheter - Exam This is a pleasant 69-year-old female in no acute distress. She is alert and oriented 3. Exam of the left hip reveals the Optifoam dressing is intact. There is no erythema or ecchymosis about the anterior or lateral hip. She has full foot and ankle motion without difficulty or pain. Neurovascular status to the lower extremity is intact. Mejia catheter is noted. - Labs CBC & Chem 7: 10/04/19 06:15 10/02/19 23:28 Labs: Abnormal Lab Results - Last 24 Hours (Table) 10/03/19 10/03/19 10/03/19 Range/Units 06:09 11:47 17:02 RBC (3.80-5.40) m/uL Hgb (11.4-16.0) gm/dL Hct (34.0-46.0) % Plt Count (150-450) k/uL POC Glucose (mg/dL) 174 H 243 H (75-99) mg/dL Hemoglobin A1c 6.4 H (4.0-6.0) % 10/03/19 10/04/19 10/04/19 Range/Units 20:15 06:15 06:48 RBC 2.14 L (3.80-5.40) m/uL Hgb 6.9 L* (11.4-16.0) gm/dL Hct 20.2 L (34.0-46.0) % Plt Count 119 L (150-450) k/uL POC Glucose (mg/dL) 169 H 208 H (75-99) mg/dL Hemoglobin A1c (4.0-6.0) % Assessment and Plan (1) Acute blood loss as cause of postoperative anemia Current Visit: Yes Status: Acute Code(s): D62 - ACUTE POSTHEMORRHAGIC ANEMIA SNOMED Code(s): 28490588571039832 (2) Primary osteoarthritis of left hip Current Visit: Yes Status: Acute Code(s): M16.12 - UNILATERAL PRIMARY OSTEOARTHRITIS, LEFT HIP SNOMED Code(s): 801009127574837 (3) Status post left hip replacement Current Visit: Yes Status: Acute Code(s): Z96.642 - PRESENCE OF LEFT ARTIFICIAL HIP JOINT SNOMED Code(s): 374972363 Plan: The clinical findings are discussed with the patient. She is to receive a blood transfusion today. The patient is hoping to be able to go to inpatient rehab at [facility] when she is stable medically and bed available. Continue current care. Progress with physical therapy as tolerated.
[2019-10-04 11:05] LABS: Glucose,Whole Blood 210 mg/dL (75-99)
[2019-10-04] MEDS: MULTIVITAMINS, THERA 1 EACH TAB PO SCH (12:36)
[2019-10-04] MEDS: ASPIRIN 81 MG PO SCH (15:41)
[2019-10-04] MEDS: APIXABAN 2.5 MG TABLET PO SCH ×2 (15:41→21:09)
[2019-10-04 16:26] LABS: Glucose,Whole Blood 214 mg/dL (75-99)
[2019-10-04 20:36] LABS: Glucose,Whole Blood 203 mg/dL (75-99)
[2019-10-04] MEDS: SENNOSIDES-DOCUSATE SODIUM 1 EACH TAB PO SCH (21:00)
[2019-10-04] MEDS: PRIMIDONE 50 MG TAB PO SCH (21:00)
[2019-10-04] MEDS: MONTELUKAST 10 MG TAB PO SCH (21:00)
[2019-10-04] MEDS: CYCLOBENZAPRINE 10 MG TAB PO SCH (21:01)
[2019-10-04] MEDS ORDERED: ALPRAZolam 0.25 MG TAB PO STA (22:59)
[2019-10-05] MEDS: LACTATED RINGERS 1,000 ML IV SCH (02:30)
[2019-10-05] MEDS: HYDROcodone/APAP 5-325MG 1 EACH TAB PO PRN ×3 (05:40→20:25)
[2019-10-05] MEDS: LEVOTHYROXINE 100 MCG TAB PO SCH (05:41)
[2019-10-05] MEDS: LEVOTHYROXINE 75 MCG TAB PO SCH (06:01)
[2019-10-05] MEDS ORDERED: LEVOTHYROXINE 50 MCG TAB PO ONE (06:30)
[2019-10-05 06:55] LABS: Glucose,Whole Blood 189 mg/dL (75-99)
[2019-10-05 07:26] LABS: Basophils % (A) 0 %; Eosinophils # (A) 0.2 k/uL (0-0.7); Eosinophils % (A) 3 %; HCT 21.4 % (34.0-46.0); HGB 7.3 gm/dL (11.4-16.0); Lymphocytes # (A) 1.2 k/uL (1.0-4.8); Lymphocytes % (A) 18 %; MCH 32.3 pg (25.0-35.0); MCHC 34.2 g/dL (31.0-37.0); MCV 94.3 fL (80.0-100.0); Mean Platelet Volume 6.8; Monocytes # (A) 0.4 k/uL (0-1.0); Monocytes % (A) 6 %; Neutrophils # (A) 4.8 k/uL (1.3-7.7); Neutrophils % (A) 72 %; Platelet Count 114 k/uL (150-450); RBC 2.27 m/uL (3.80-5.40); RDW 13.4 % (11.5-15.5); WBC 6.7 k/uL (3.8-10.6)
[2019-10-05] MEDS: ALBUTEROL NEBULIZED 2.5 MG/3 ML INHALATION SCH ×2 (07:43→20:12)
[2019-10-05] MEDS: FLUTICASONE 44 MCG INHALER INHALATION SCH ×2 (07:43→21:10)
[2019-10-05] MEDS: LISINOPRIL 2.5 MG TAB PO SCH (07:50)
[2019-10-05] MEDS: APIXABAN 2.5 MG TABLET PO SCH ×2 (08:01→20:25)
[2019-10-05] MEDS: DICYCLOMINE 10 MG CAP PO SCH ×2 (08:01→20:24)
[2019-10-05] MEDS: INSULIN ASPART (NovoLOG) 100 UNIT/ML VIAL SQ SCH ×4 (08:01→20:59)
[2019-10-05] MEDS: ASPIRIN 81 MG PO SCH (08:01)
[2019-10-05] MEDS: MULTIVITAMINS, THERA 1 EACH TAB PO SCH (08:01)
[2019-10-05] MEDS: FAMOTIDINE 20 MG TAB PO SCH (08:01)
--- NOTE | 2019-10-05 08:53 | P.PN ---
Subjective Progress Note Date: 10/05/19 Principal diagnosis: Primary osteoarthritis left hip. Status post total left hip arthroplasty. This is a 69 year-old female post left total hip arthroplasty. This is post-op day 3. The patient was evaluated at the bedside today. She states she is still a little bit dizzy with no nausea this morning. The patient denies vomiting, abdominal pain, shortness of breath, and chest pain this morning. She states her pain is fairly well controlled at this time. The patient has not been up with physical therapy, other than getting up in a chair. During her procedure, she experienced a 750 mL blood loss and her hemoglobin was 6.9 yesterday. She received 1 unit of packed red blood cells. Today her hemoglobin is 7.3. She states that she does feel better today. She also had some urinary retention and Mejia catheter was replaced. Labs and vital signs are stable. Objective - Vital Signs Vital signs: Vital Signs Temp 98.4 F 10/05/19 07:48 Pulse 80 10/05/19 07:54 Resp 16 10/05/19 07:48 BP 101/63 10/05/19 07:48 Pulse Ox 95 10/05/19 07:48 Intake & Output 10/04/19 10/05/19 10/05/19 18:59 06:59 18:59 Intake Total 1104 1600 Output Total 550 825 Balance 554 775 Intake: Intake, IV Titration 1600 Amount Sodium Chloride 0.9% 1, 1600 000 ml @ 100 mls/hr IV . Q10H [facility] Rx#:[id number] Oral 794 Blood Product 310 Rc As-1 Unit 310 [id number] Output: Urine 550 825 Other: Voiding Method Indwelling Catheter Indwelling Catheter Indwelling Catheter - Exam This is a pleasant 69-year-old female in no acute distress. She is alert and oriented 3. Exam of the left hip reveals the Optifoam dressing is intact. There is no erythema or ecchymosis about the anterior or lateral hip. There is minimal swelling. She has full foot and ankle motion without difficulty or pain. Neurovascular status to the lower extremity is intact. Mejia catheter is noted. - Labs CBC & Chem 7: 10/05/19 06:50 10/02/19 23:28 Labs: Abnormal Lab Results - Last 24 Hours (Table) 10/04/19 10/04/1920 Range/Units 08:00 11:04 16:25 RBC (3.80-5.40) m/uL Hgb (11.4-16.0) gm/dL Hct (34.0-46.0) % Plt Count (150-450) k/uL POC Glucose (mg/dL) 210 H 214 H (75-99) mg/dL Crossmatch See Detail 10/04/19 10/05/19 10/05/19 Range/Units 20:30 06:43 06:50 RBC 2.27 L (3.80-5.40) m/uL Hgb 7.3 L (11.4-16.0) gm/dL Hct 21.4 L (34.0-46.0) % Plt Count 114 L (150-450) k/uL POC Glucose (mg/dL) 203 H 189 H (75-99) mg/dL Crossmatch Assessment and Plan (1) Acute blood loss as cause of postoperative anemia Current Visit: Yes Status: Acute Code(s): D62 - ACUTE POSTHEMORRHAGIC ANEMIA SNOMED Code(s): 02625004817648973 (2) Primary osteoarthritis of left hip Current Visit: Yes Status: Acute Code(s): M16.12 - UNILATERAL PRIMARY OSTEOARTHRITIS, LEFT HIP SNOMED Code(s): 023024748140154 (3) Status post left hip replacement Current Visit: Yes Status: Acute Code(s): Z96.642 - PRESENCE OF LEFT ARTIFICIAL HIP JOINT SNOMED Code(s): 981679805 Plan: The clinical findings are discussed with the patient. She is to get up with physical therapy today. The patient is hoping to be able to go to inpatient rehab at [facility] when she is stable medically and bed available. Continue current care. Progress with physical therapy as tolerated.
[2019-10-05] MEDS ORDERED: TAMSULOSIN 0.4 MG CAP.ER.24H PO STA (10:36)
[2019-10-05 12:41] LABS: Glucose,Whole Blood 299 mg/dL (75-99)
[2019-10-05] MEDS: SODIUM CHLORIDE 0.9% 1,000 ML IV SCH (12:56)
--- NOTE | 2019-10-05 14:48 | P.PN ---
Subjective Progress Note Date: 10/05/19 Principal diagnosis: This is a 69-year-old female who was recently admitted for left total hip replacement with Dr. Kim and is being closely monitored. Patient has history of diabetes along with asthma, COPD, DVT, history of GERD, hypertension, DJD. Patient is postop day #3. Patient's hemoglobin this morning is 7.3 as patient received a unit of PRBCs yesterday. Will hold lisinopril as well is patient blood pressures are on the lower side. Physical therapy has been working with the patient and recommending subacute rehab for continued PT/OT therapy. Patient states she will be going to [facility] on the [address] [place] for continued PT/OT therapy. Patient continues to have left hip pain and to continue pain management per primary service. No reports of chest pain, shortness of breath, or palpitations. Patient is afebrile. Patient states she is having intermittent episodes of nausea with no reports of vomiting noted. Zofran was ordered. Will continue to follow along with orthopedic surgery closely. Objective - Vital Signs Vital signs: Vital Signs Temp 98.5 F 10/05/19 14:34 Pulse 100 10/05/19 14:34 Resp 16 10/05/19 14:34 BP 129/72 10/05/19 14:34 Pulse Ox 100 10/05/19 14:34 Intake & Output 10/04/19 10/05/19 10/05/19 18:59 06:59 18:59 Intake Total 1104 1600 500 Output Total 550 825 300 Balance 554 775 200 Intake: Intake, IV Titration 1600 Amount Sodium Chloride 0.9% 1, 1600 000 ml @ 100 mls/hr IV . Q10H [facility] Rx#:[id number] Oral 794 500 Blood Product 310 Rc As-1 Unit 310 [id number] Output: Urine 550 825 300 Straight 300 Other: Voiding Method Indwelling Catheter Indwelling Catheter Indwelling Catheter - Exam Gen: This is a 69-year-old female sitting up in the chair, awake, alert and oriented 3, well-developed, well-nourished. HEENT: Head is atraumatic, normocephalic. Pupils equal, round. Sclerae is anicteric. NECK: Supple. No JVD. No lymphadenopathy. No thyromegaly. LUNGS: Diminished breath sounds at the bases with no wheezing or rhonchi noted. No intercostal retractions. HEART: S1, S2 are present ABDOMEN: Soft. Bowel sounds are present. No masses. No tenderness. EXTREMITIES: No pedal edema. No calf tenderness. Left surgical hip dressing is dry and intact with no increasing erythema noted. NEUROLOGICAL: Patient is awake, alert and oriented x3. Diffusely weak - Labs CBC & Chem 7: 10/05/19 06:50 10/02/19 23:28 Labs: Abnormal Lab Results - Last 24 Hours (Table) 10/04/19 10/04/19 10/05/19 Range/Units 16:25 20:30 06:43 RBC (3.80-5.40) m/uL Hgb (11.4-16.0) gm/dL Hct (34.0-46.0) % Plt Count (150-450) k/uL POC Glucose (mg/dL) 214 H 203 H 189 H (75-99) mg/dL 10/05/19 10/05/19 Range/Units 06:50 12:39 RBC 2.27 L (3.80-5.40) m/uL Hgb 7.3 L (11.4-16.0) gm/dL Hct 21.4 L (34.0-46.0) % Plt Count 114 L (150-450) k/uL POC Glucose (mg/dL) 299 H (75-99) mg/dL Assessment and Plan Assessment: Status post left hip total replacement arthroplasty Acute blood loss anemia as cause of postoperative anemia Increased white blood count, possibly reactive Asthma, chronic obstructive pulmonary disease Diabetes mellitus type 2 History of DVT history of GERD Hypertension History of degenerative joint disease History of sleep apnea, uses BiPAP at night History of glaucoma Obesity with a body mass index of 31.6 Plan: Continue current medications, management, and symptomatic treatment. PT/OT following. Hemoglobin is 7.3 today and will repeat a.m. labs. Patient is status post total hip replacement on the left side and will continue to follow along with orthopedic surgery. Further recommendations to follow. Case nemo wilson and social work following this patient will be going to [facility] on [facility] for continued PT/OT therapy once stabilized and discharged.
[2019-10-05 17:17] LABS: Glucose,Whole Blood 125 mg/dL (75-99)
[2019-10-05] MEDS: MONTELUKAST 10 MG TAB PO SCH (20:25)
[2019-10-05] MEDS: CYCLOBENZAPRINE 10 MG TAB PO SCH (20:25)
[2019-10-05] MEDS: PRIMIDONE 50 MG TAB PO SCH (20:25)
[2019-10-05] MEDS: SENNOSIDES-DOCUSATE SODIUM 1 EACH TAB PO SCH (20:25)
[2019-10-05 20:41] LABS: Glucose,Whole Blood 204 mg/dL (75-99)
[2019-10-06] MEDS: SODIUM CHLORIDE 0.9% 1,000 ML IV SCH ×3 (00:04→20:55)
[2019-10-06] MEDS: HYDROcodone/APAP 5-325MG 1 EACH TAB PO PRN ×4 (04:25→23:48)
[2019-10-06] MEDS: LEVOTHYROXINE 100 MCG TAB PO SCH (05:35)
[2019-10-06] MEDS: LACTATED RINGERS 1,000 ML IV SCH (05:36)
[2019-10-06] MEDS: LEVOTHYROXINE 75 MCG TAB PO SCH (05:36)
[2019-10-06 06:53] LABS: Glucose,Whole Blood 156 mg/dL (75-99)
[2019-10-06] MEDS: INSULIN ASPART (NovoLOG) 100 UNIT/ML VIAL SQ SCH ×4 (07:46→20:54)
[2019-10-06] MEDS: ALBUTEROL NEBULIZED 2.5 MG/3 ML INHALATION SCH ×2 (08:55→20:53)
[2019-10-06] MEDS: FLUTICASONE 44 MCG INHALER INHALATION SCH ×2 (08:56→20:53)
[2019-10-06 09:19] LABS: Basophils % (A) 0 %; Eosinophils # (A) 0.2 k/uL (0-0.7); Eosinophils % (A) 3 %; HCT 23.2 % (34.0-46.0); HGB 7.8 gm/dL (11.4-16.0); Lymphocytes # (A) 1.2 k/uL (1.0-4.8); Lymphocytes % (A) 20 %; MCH 31.7 pg (25.0-35.0); MCHC 33.5 g/dL (31.0-37.0); MCV 94.5 fL (80.0-100.0); Mean Platelet Volume 6.8; Monocytes # (A) 0.4 k/uL (0-1.0); Monocytes % (A) 6 %; Neutrophils % (A) 69 %; Platelet Count 155 k/uL (150-450); RBC 2.45 m/uL (3.80-5.40); RDW 13.3 % (11.5-15.5); WBC 5.8 k/uL (3.8-10.6)
[2019-10-06] MEDS: ASPIRIN 81 MG PO SCH (09:28)
[2019-10-06] MEDS: APIXABAN 2.5 MG TABLET PO SCH ×2 (09:28→20:54)
[2019-10-06] MEDS: ONDANSETRON 4 MG/2 ML VIAL IVP PRN ×2 (09:28→22:43)
[2019-10-06] MEDS: DICYCLOMINE 10 MG CAP PO SCH ×2 (09:28→20:53)
[2019-10-06] MEDS: FAMOTIDINE 20 MG TAB PO SCH (09:28)
[2019-10-06 11:08] LABS: Glucose,Whole Blood 138 mg/dL (75-99)
[2019-10-06] MEDS: MULTIVITAMINS, THERA 1 EACH TAB PO SCH (12:26)
--- NOTE | 2019-10-06 12:37 | P.PN ---
Subjective Progress Note Date: 10/06/19 This patient is a 69- year old female that is status-post left total hip arthroplasty on 10/02/[address] Kim. Today is post-operative day #4. Patient is seen and evaluated bedside this morning. Hemoglobin was 7.3 yesterday, and is 7.8 this morning. Patient is complaining of mild nausea this morning, per nursing the patient was given one tab of [place] before the nausea began. Patient was given zofran and states her nausea has improved slightly. She states otherwise she feels well. She is not complaining of dizziness or lightheadedness. She denies chest pain, shortness of breath, fevers, chills, numbness or tingling of the left lower extremity. Vital signs stable. Objective - Vital Signs Vital signs: Vital Signs Temp 99.8 F H 10/06/19 07:00 Pulse 74 10/06/19 07:00 Resp 16 10/06/19 07:00 BP 130/75 10/06/19 07:00 Pulse Ox 90 L 10/06/19 07:00 Intake & Output 10/05/19 10/06/19 10/06/19 18:59 06:59 18:59 Intake Total 500 400 Output Total 350 900 800 Balance 150 -500 -800 Intake: Intake, IV Titration 400 Amount Sodium Chloride 0.9% 1, 400 000 ml @ 100 mls/hr IV . Q10H [facility] Rx#:[id number] Oral 500 Output: Urine 350 900 Straight 300 Post Void Residual 800 Other: Voiding Method Indwelling Catheter Bedside Commode # Voids 1 - Exam On examination, the patient is lying in bed in no apparent distress. She is alert and oriented 3. On inspection of the left hip, there is a clean, dry, intact Optifoam dressing in place. There is no bleeding or drainage through the dressing. The thigh is soft and compressible. Patient has goos strength and range of motion of the left ankle. Motor and sensory function are intact of left lower extremity. Dorsalis pedis pulse +2. Calves are soft and nontender to palpation bilaterally. - Labs CBC & Chem 7: 10/06/19 08:39 10/02/19 23:28 Labs: Abnormal Lab Results - Last 24 Hours (Table) 07/02/20 07/02/20 07/02/20 Range/Units 12:39 17:15 20:39 RBC (3.80-5.40) m/uL Hgb (11.4-16.0) gm/dL Hct (34.0-46.0) % POC Glucose (mg/dL) 299 H 125 H 204 H (75-99) mg/dL 10/06/19 10/06/19 10/06/19 Range/Units 06:50 08:39 11:07 RBC 2.45 L (3.80-5.40) m/uL Hgb 7.8 L (11.4-16.0) gm/dL Hct 23.2 L (34.0-46.0) % POC Glucose (mg/dL) 156 H 138 H (75-99) mg/dL Assessment and Plan Assessment: Status-post left total hip arthroplasty. Post-operative day #4. Plan: - Weight-bearing as tolerated on the operative leg. Use walker for ambulation. - Continue physical therapy for gait and balance training. - Keep current Optifoam dressing in place for 710 days. - Pain management as needed. - Patient is on eliquis and aspirin for anticoagulation. - Anticipate discharge to rehab on Wednesday, pending medical clearance.
--- NOTE | 2019-10-06 14:22 | P.PN ---
Subjective Progress Note Date: 10/06/19 Principal diagnosis: This is a 69-year-old female who was recently admitted for left total hip replacement with Dr. Kim and is being closely monitored. Patient has history of diabetes along with asthma, COPD, DVT, history of GERD, hypertension, DJD. Patient is postop day #3. Patient's hemoglobin this morning is 7.3 as patient received a unit of PRBCs yesterday. Will hold lisinopril as well is patient blood pressures are on the lower side. Physical therapy has been working with the patient and recommending subacute rehab for continued PT/OT therapy. Patient states she will be going to [facility] for continued PT/OT therapy. Patient continues to have left hip pain and to continue pain management per primary service. No reports of chest pain, shortness of breath, or palpitations. Patient is afebrile. Patient states she is having intermittent episodes of nausea with no reports of vomiting noted. Zofran was ordered. Will continue to follow along with orthopedic surgery closely. 10/06/2019 Patient is seen and evaluated in follow-up today and currently being closely monitored status post left total hip arthroplasty with Dr. Kim. Patient's hem oglobin slightly improved at 7.8 today with no bleeding noted. Patient continues to have some intermittent nausea that occurs after pain medications are given. Patient has Zofran as needed with relief noted. Patient is tolerating diet with no reports of vomiting noted. States she is passing gas but has not had a bowel movement at this time. Mejia catheter was discontinued and patient was having some urinary retention but is urinating. To continue monitoring for residuals and retention. Discussed with nursing staff to resume indwelling Mejia catheter or straight cath if needed for retention. Patient continued to be followed with PT/OT therapy and working with them daily. Left hip surgical dressing is dry and intact. Patient scheduled to go to [facility] for continued PT/OT therapy once discharged. Objective - Vital Signs Vital signs: Vital Signs Temp 99.8 F H 10/06/19 07:00 Pulse 74 10/06/19 07:00 Resp 16 10/06/19 07:00 BP 130/75 10/06/19 07:00 Pulse Ox 90 L 10/06/19 07:00 Intake & Output 10/05/19 10/06/19 10/06/19 18:59 06:59 18:59 Intake Total 500 400 Output Total 350 900 800 Balance 150 -500 -800 Intake: Intake, IV Titration 400 Amount Sodium Chloride 0.9% 1, 400 000 ml @ 100 mls/hr IV . Q10H [facility] Rx#:[id number] Oral 500 Output: Urine 350 900 Straight 300 Post Void Residual 800 Other: Voiding Method Indwelling Catheter Bedside Commode # Voids 1 - Exam Gen: This is a 69-year-old female sitting up in the chair, awake, alert and oriented 3, well-developed, well-nourished. Temp is 99.8F, pulse is 74, respirations are 16, blood pressure is 130/75, oxygen saturation is 90% on room air. HEENT: Head is atraumatic, normocephalic. Pupils equal, round. Sclerae is anicteric. NECK: Supple. No JVD. No lymphadenopathy. No thyromegaly. LUNGS: Diminished breath sounds at the bases with no wheezing or rhonchi noted. No intercostal retractions. HEART: S1, S2 are present ABDOMEN: Soft. Bowel sounds are present. No masses. No tenderness. EXTREMITIES: No pedal edema. No calf tenderness. Left surgical hip dressing is dry and intact with no increasing erythema noted. NEUROLOGICAL: Patient is awake, alert and oriented x3. Diffusely weak - Labs CBC & Chem 7: 10/06/19 08:39 10/02/19 23:28 Labs: Abnormal Lab Results - Last 24 Hours (Table) 10/05/19 10/05/19 10/06/19 Range/Units 17:15 20:39 06:50 RBC (3.80-5.40) m/uL Hgb (11.4-16.0) gm/dL Hct (34.0-46.0) % POC Glucose (mg/dL) 125 H 204 H 156 H (75-99) mg/dL 10/06/19 10/06/19 Range/Units 08:39 11:07 RBC 2.45 L (3.80-5.40) m/uL Hgb 7.8 L (11.4-16.0) gm/dL Hct 23.2 L (34.0-46.0) % POC Glucose (mg/dL) 138 H (75-99) mg/dL Assessment and Plan Assessment: Status post left hip total replacement arthroplasty Acute blood loss anemia as cause of postoperative anemia Increased white blood count, possibly reactive Asthma, chronic obstructive pulmonary disease Diabetes mellitus type 2 History of DVT history of GERD Hypertension History of degenerative joint disease History of sleep apnea, uses BiPAP at night History of glaucoma Obesity with a body mass index of 31.6 Plan: Continue current medications, management, and symptomatic treatment. PT/OT following. Hemoglobin is 7.8 today and will repeat a.m. labs. Patient is status post total hip replacement on the left side and will continue to follow along with orthopedic surgery. Discussed with nursing staff about continuing to monitor for urinary retention and continue checking post-void residuals and may straight cath as needed. Further recommendations to follow. Case management and social work following this patient will be going to [facility] for continued PT/OT therapy once stabilized and discharged.
[2019-10-06 16:54] LABS: Glucose,Whole Blood 116 mg/dL (75-99)
[2019-10-06] MEDS: PANTOPRAZOLE 40 MG TABLET PO SCH (16:56)
[2019-10-06 20:37] LABS: Glucose,Whole Blood 185 mg/dL (75-99)
[2019-10-06] MEDS: PRIMIDONE 50 MG TAB PO SCH (20:52)
[2019-10-06] MEDS: CYCLOBENZAPRINE 10 MG TAB PO SCH (20:52)
[2019-10-06] MEDS: MONTELUKAST 10 MG TAB PO SCH (20:52)
[2019-10-06] MEDS: SENNOSIDES-DOCUSATE SODIUM 1 EACH TAB PO SCH (20:53)
[2019-10-06] MEDS ORDERED: PANTOPRAZOLE 40 MG/10 ML VIAL IVP SCH (21:00)
[2019-10-07] MEDS: LEVOTHYROXINE 75 MCG TAB PO SCH (05:49)
[2019-10-07] MEDS: SODIUM CHLORIDE 0.9% 1,000 ML IV SCH ×2 (06:12→18:05)
[2019-10-07] MEDS: HYDROcodone/APAP 5-325MG 1 EACH TAB PO PRN ×3 (06:15→18:03)
[2019-10-07 07:20] LABS: Glucose,Whole Blood 172 mg/dL (75-99)
[2019-10-07] MEDS: ALBUTEROL NEBULIZED 2.5 MG/3 ML INHALATION SCH ×2 (08:19→20:13)
[2019-10-07] MEDS: FLUTICASONE 44 MCG INHALER INHALATION SCH ×2 (08:23→20:19)
[2019-10-07] MEDS: ASPIRIN 81 MG PO SCH (08:41)
[2019-10-07] MEDS: INSULIN ASPART (NovoLOG) 100 UNIT/ML VIAL SQ SCH ×4 (08:41→22:31)
[2019-10-07] MEDS: FAMOTIDINE 20 MG TAB PO SCH (08:41)
[2019-10-07] MEDS: PANTOPRAZOLE 40 MG TABLET PO SCH ×2 (08:42→18:04)
[2019-10-07] MEDS: LACTATED RINGERS 1,000 ML IV SCH (08:42)
[2019-10-07] MEDS: APIXABAN 2.5 MG TABLET PO SCH ×2 (08:42→22:29)
[2019-10-07] MEDS: DICYCLOMINE 10 MG CAP PO SCH ×2 (08:42→22:31)
[2019-10-07] MEDS: ONDANSETRON 4 MG/2 ML VIAL IVP PRN (08:49)
[2019-10-07 09:23] LABS: Basophils % (A) 0 %; Eosinophils # (A) 0.2 k/uL (0-0.7); Eosinophils % (A) 4 %; HCT 22.9 % (34.0-46.0); HGB 7.6 gm/dL (11.4-16.0); Lymphocytes # (A) 1.7 k/uL (1.0-4.8); Lymphocytes % (A) 32 %; MCHC 33.1 g/dL (31.0-37.0); MCV 96.6 fL (80.0-100.0); Mean Platelet Volume 6.9; Monocytes # (A) 0.3 k/uL (0-1.0); Monocytes % (A) 5 %; Neutrophils # (A) 2.9 k/uL (1.3-7.7); Neutrophils % (A) 57 %; Platelet Count 178 k/uL (150-450); RBC 2.37 m/uL (3.80-5.40); RDW 13.9 % (11.5-15.5); WBC 5.1 k/uL (3.8-10.6)
--- NOTE | 2019-10-07 09:24 | P.PN ---
Subjective Progress Note Date: 10/07/19 This patient is a 69- year old female that is status-post left total hip arthroplasty on 10/02/[address] Kim. Today is post-operative day #5. Patient is seen and evaluated bedside this morning. Hemoglobin was 7.8 today, hemoglobin value has not resulted yet this morning. Patient is continuing to complain of mild nausea, which is relieved with Zofran. The patient did eat almost all of her breakfast this morning. She denies vomiting. The patient states she was walking around her room yesterday with a walker with minimal assistance or issues. Patient is experiencing urinary retention, although she has urinating a large amount without significant issue. Per internal medicine, nursing staff was instructed to resume indwelling Mejia catheter or straight cath if needed. The patient is complaining of left calf pain today. The patient denies chest pain, shortness breath, fevers, chills, numbness or tingling of the left lower extremity. Vital signs stable. Objective - Vital Signs Vital signs: Vital Signs Temp 99.0 F 10/07/19 07:00 Pulse 88 10/07/19 08:33 Resp 20 10/07/19 07:00 BP 100/55 10/07/19 07:00 Pulse Ox 95 10/07/19 07:00 Intake & Output 10/06/19 10/07/19 10/07/19 18:59 06:59 18:59 Intake Total 400 720 Output Total 800 450 Balance -400 270 Intake: Intake, IV Titration 400 600 Amount Sodium Chloride 0.9% 1, 400 600 000 ml @ 100 mls/hr IV . Q10H [facility] Rx#:[id number] Oral 120 Output: Urine 450 Post Void Residual 800 Other: Voiding Method Bedside Commode # Voids 1 - Exam On examination, the patient is lying in bed in no apparent distress. She is alert and oriented 3. Currently eating breakfast. On inspection of the left hip, there is a clean, dry, intact Optifoam dressing in place. There is no bleeding or drainage through the dressing. The thigh is soft and compressible. Patient has good strength and range of motion of the left ankle. Motor and sensory function are intact of left lower extremity. Dorsalis pedis pulse +2. Right calf soft and nontender, left calf very tender to palpation. - Labs CBC & Chem 7: 10/06/19 08:39 06/29/20 23:28 Labs: Abnormal Lab Results - Last 24 Hours (Table) 10/06/19 10/06/19 10/06/19 Range/Units 08:39 11:07 16:53 RBC 2.45 L (3.80-5.40) m/uL Hgb 7.8 L (11.4-16.0) gm/dL Hct 23.2 L (34.0-46.0) % POC Glucose (mg/dL) 138 H 116 H (75-99) mg/dL 10/06/19 10/07/19 Range/Units 20:36 07:17 RBC (3.80-5.40) m/uL Hgb (11.4-16.0) gm/dL Hct (34.0-46.0) % POC Glucose (mg/dL) 185 H 172 H (75-99) mg/dL Assessment and Plan Assessment: Status-post left total hip arthroplasty. Post-operative day #5. Plan: - Weight-bearing as tolerated on the operative leg. Use walker for ambulation. - We will obtain a Doppler US of the LLE due to new calf tenderness. - Continue physical therapy for gait and balance training. - Keep current Optifoam dressing in place for 710 days. - Pain management as needed. - Patient is on eliquis and aspirin for anticoagulation. - Appreciate internal medicine input. - We will continue to monitor hemoglobin level. - Anticipate discharge to rehab on Wednesday, pending medical clearance.
[2019-10-07 09:34] LABS: African American GFR (CKD) >90 (>60 ml/min/1.73 sqM); Anion Gap 4 mmol/L; Blood Urea Nitrogen 8 mg/dL (7-17); Calcium 7.8 mg/dL (8.4-10.2); Carbon Dioxide 28 mmol/L (22-30); Chloride 103 mmol/L (98-107); Glucose 171 mg/dL (74-99); Non-African American GFR(CKD) >90 (>60 ml/min/1.73 sqM); Potassium 3.8 mmol/L (3.5-5.1); Sodium 135 mmol/L (137-145)
--- NOTE | 2019-10-07 10:07 | US ---
EXAMINATION TYPE: US venous doppler duplex LE LT DATE OF EXAM: 10/07/2019 9:41 AM COMPARISON: NONE CLINICAL HISTORY: Pain. Left hip replacement x 5 days ago. On blood thinners. Swelling. No redness . SIDE PERFORMED: Left TECHNIQUE: The lower extremity deep venous system is examined utilizing real time linear array sonog robert with graded compression, doppler sonography and color-flow sonography. VESSELS IMAGED: External Iliac Vein (EIV) Common Femoral Vein Deep Femoral Vein Greater Saphenous Vein * Femoral Vein Popliteal Vein Small Saphenous Vein * Proximal Calf Veins (* superficial vessels) Left Leg: Negative for DVT IMPRESSION: 1. Left lower extremity ultrasound negative for deep venous thrombosis.
[2019-10-07 12:04] LABS: Glucose,Whole Blood 185 mg/dL (75-99)
[2019-10-07] MEDS: MULTIVITAMINS, THERA 1 EACH TAB PO SCH (12:54)
--- NOTE | 2019-10-07 13:01 | XR ---
EXAMINATION TYPE: XR chest 1V DATE OF EXAM: 10/07/2019 COMPARISON: 05/29/2014 INDICATION: Short of breath TECHNIQUE: Single frontal view of the chest is obtained. FINDINGS: The heart size is normal. The pulmonary vasculature is normal. There is some platelike atelectasis or fluid within the minor fissure on the right. IMPRESSION: 1. Atelectasis versus fluid within the minor fissure on the right.
[2019-10-07] MEDS ORDERED: ALBUTEROL NEBULIZED 2.5 MG/3 ML INHALATION PRN (16:22)
[2019-10-07] MEDS ORDERED: FUROSEMIDE 10 MG/ML 2 ML VIAL IV ONE (16:30)
[2019-10-07 17:01] LABS: Glucose,Whole Blood 146 mg/dL (75-99)
[2019-10-07] MEDS: SYMBICORT 160-4.5 MCG INHALER INHALATION SCH (20:14)
[2019-10-07 20:37] LABS: Glucose,Whole Blood 154 mg/dL (75-99)
--- NOTE | 2019-10-07 22:03 | PN ---
PROGRESS NOTE DATE OF SERVICE: 10/07/2019 This 69-year-old woman with a past medical history of multiple medical problems was admitted after left hip surgery. The patient complaining of severe pain and also complaining of some cough. Venous Doppler was done today which showed no evidence of any DVT. The chest x-ray which was reviewed personally by me showed possibly some atelectasis. The patient being closely monitored at this time. PAST MEDICAL HISTORY: Reviewed. REVIEW OF SYSTEMS: CARDIOVASCULAR: No angina. RESPIRATORY: Occasional cough. GI: As mentioned earlier. : No dysuria. NERVOUS SYSTEM: No numbness or weakness. CURRENT MEDS: 1. [place] 5 mg. 2. Ventolin. 3. Eliquis. 4. Aspirin. 5. Flexeril. 6. Valium. 7. Bentyl. 8. Flovent. 9. Dilaudid. 10.Vistaril. 11.Lactated Ringer's. 12.Synthroid. 13.Milk of magnesia. 14.Multivitamins. 15.Narcan. 16.Nitrostat. 17.Zofran. 18.Mysoline. 19.Senokot-S. PHYSICAL EXAMINATION: Alert and oriented x3. Pulse 71, blood pressure 115/46, respirations 16, temperature 98.8, pulse ox 95% on room air. HEENT: Conjunctivae normal. Oral mucosa moist. NECK: No jugular venous distention. No lymph node enlargement. CARDIOVASCULAR: S1, S2, muffled. No S3, no S4, RESPIRATORY: Diminished breath sounds at the bases. Bilateral scattered rhonchi and crackles. ABDOMEN: Soft, nontender. No mass palpable. LEGS: No edema, no swelling. NERVOUS SYSTEM: No focal motor or sensory deficits. LABS: WBC 5.2, hemoglobin 7.2, sodium 135. ASSESSMENT: 1. Status post left hip total hip arthroplasty. 2. Acute blood loss anemia, possibly postoperative as expected. 3. Increased WBC, possibly reactive. 4. Possible bilateral atelectasis. 5. Anemia, normocytic. 6. Hyponatremia. 7. Diabetes mellitus type 2. 8. History of deep venous thrombosis. 9. History of gastroesophageal reflux disease. 10.Hypertension. 11.History of degenerative joint disease. 12.History of sleep apnea. 13.History of glaucoma. 14.Obesity with body mass index of 31.6. 15.FULL CODE. RECOMMENDATIONS AND DISCUSSION: In this 69-year-old woman who presented with multiple medical issues, I would recommend to continue current management, continue symptomatic treatment. The patient had received 1 unit transfusion. Recommend repeat labs and I would recommend bronchodilators. I would also recommend incentive spirometry, DVT prophylaxis. The patient is on Eliquis. Guarded prognosis. Further recommendations to follow. MMLIDIA / IJN: [id number] /
[2019-10-07] MEDS: CYCLOBENZAPRINE 10 MG TAB PO SCH (22:29)
[2019-10-07] MEDS: MONTELUKAST 10 MG TAB PO SCH (22:30)
[2019-10-07] MEDS: PRIMIDONE 50 MG TAB PO SCH (22:31)
[2019-10-07] MEDS: SENNOSIDES-DOCUSATE SODIUM 1 EACH TAB PO SCH (22:31)
[2019-10-08] MEDS: HYDROcodone/APAP 5-325MG 1 EACH TAB PO PRN ×4 (00:22→22:09)
[2019-10-08] MEDS: LEVOTHYROXINE 75 MCG TAB PO SCH (06:15)
[2019-10-08 07:43] LABS: Glucose,Whole Blood 145 mg/dL (75-99)
[2019-10-08] MEDS: LACTATED RINGERS 1,000 ML IV SCH (08:06)
[2019-10-08] MEDS: APIXABAN 2.5 MG TABLET PO SCH ×2 (08:14→22:08)
[2019-10-08] MEDS: INSULIN ASPART (NovoLOG) 100 UNIT/ML VIAL SQ SCH ×4 (08:14→22:08)
[2019-10-08] MEDS: ASPIRIN 81 MG PO SCH (08:14)
[2019-10-08] MEDS: DICYCLOMINE 10 MG CAP PO SCH ×2 (08:14→22:07)
[2019-10-08] MEDS: PANTOPRAZOLE 40 MG TABLET PO SCH ×2 (08:14→17:19)
[2019-10-08] MEDS: SYMBICORT 160-4.5 MCG INHALER INHALATION SCH ×2 (08:45→19:42)
[2019-10-08] MEDS: ALBUTEROL NEBULIZED 2.5 MG/3 ML INHALATION SCH ×3 (08:45→19:41)
[2019-10-08] MEDS: FLUTICASONE 44 MCG INHALER INHALATION SCH ×2 (08:46→20:01)
[2019-10-08] MEDS: MULTIVITAMINS, THERA 1 EACH TAB PO SCH (11:39)
[2019-10-08] MEDS: ONDANSETRON 4 MG/2 ML VIAL IVP PRN (11:39)
[2019-10-08 12:08] LABS: Glucose,Whole Blood 189 mg/dL (75-99)
[2019-10-08 13:42] LABS: Basophils % (A) 1 %; Eosinophils # (A) 0.2 k/uL (0-0.7); Eosinophils % (A) 4 %; HCT 22.3 % (34.0-46.0); HGB 7.5 gm/dL (11.4-16.0); Lymphocytes # (A) 0.9 k/uL (1.0-4.8); Lymphocytes % (A) 21 %; MCH 32.8 pg (25.0-35.0); MCHC 33.8 g/dL (31.0-37.0); MCV 96.9 fL (80.0-100.0); Monocytes # (A) 0.3 k/uL (0-1.0); Monocytes % (A) 6 %; Neutrophils % (A) 68 %; Platelet Count 207 k/uL (150-450); RDW 14.2 % (11.5-15.5); WBC 4.4 k/uL (3.8-10.6)
[2019-10-08 16:54] LABS: Glucose,Whole Blood 213 mg/dL (75-99)
--- NOTE | 2019-10-08 17:40 | P.PN ---
Subjective Progress Note Date: 10/08/19 This patient is a 69- year old female that is status-post left total hip arthroplasty on 10/02/[address] Kim. Today is post-operative day #6. Patient is seen and evaluated bedside this morning. Hemoglobin is 7.5 today. Doppler US of the LLE yesterday was negative for DVT. Patient continues to complain of mild nausea. She tolerated her breakfast well. She denies vomiting. She is urinating without issue, she has been experiencing issues with urinary retention and nursing has orders per internal medicine to straight cath if needed. She denies chest pain, shortness of breath, fevers, chills, numbness of tingling of the left lower extremity. Vital signs stable. Objective - Vital Signs Vital signs: Vital Signs Temp 98.2 F 10/08/19 06:56 Pulse 92 10/08/19 08:58 Resp 18 10/08/19 06:56 BP 106/67 10/08/19 06:56 Pulse Ox 95 10/08/19 06:56 Intake & Output 10/07/19 10/08/19 10/08/19 18:59 06:59 18:59 Intake Total 60 Output Total 1750 775 Balance -1690 -775 Intake: Oral 60 Output: Urine 1750 775 Other: Voiding Method Bedside Commode # Voids 1 1 1 - Exam On examination, the patient is lying in bed in no apparent distress. She is alert and oriented 3. On inspection of the left hip, there is a clean, dry, intact Optifoam dressing in place. There is no bleeding or drainage through the dressing. The thigh is soft and compressible. Patient has good strength and range of motion of the left ankle. Motor and sensory function are intact of left lower extremity. Dorsalis pedis pulse +2. - Labs CBC & Chem 7: 10/08/19 13:22 10/07/19 08:45 Labs: Abnormal Lab Results - Last 24 Hours (Table) 10/07/19 10/07/19 10/08/19 Range/Units 16:50 20:35 07:00 POC Glucose (mg/dL) 146 H 154 H 145 H (75-99) mg/dL 10/08/19 Range/Units 11:55 POC Glucose (mg/dL) 189 H (75-99) mg/dL Assessment and Plan Assessment: Status-post left total hip arthroplasty. Post-operative day #6. Plan: - Weight-bearing as tolerated on the operative leg. Use walker for ambulation. - Continue physical therapy for gait and balance training. - Keep current Optifoam dressing in place for 710 days. - Pain management as needed. - Patient is on eliquis and aspirin for anticoagulation. - Appreciate internal medicine input. - We will continue to monitor hemoglobin level. - Anticipate discharge to rehab on Wednesday, pending medical clearance.
[2019-10-08 19:56] LABS: Glucose,Whole Blood 159 mg/dL (75-99)
[2019-10-08] MEDS: PRIMIDONE 50 MG TAB PO SCH (22:07)
[2019-10-08] MEDS: MONTELUKAST 10 MG TAB PO SCH (22:07)
[2019-10-08] MEDS: SENNOSIDES-DOCUSATE SODIUM 1 EACH TAB PO SCH (22:07)
[2019-10-08] MEDS: GABAPENTIN 300 MG CAP PO SCH (22:08)
[2019-10-08] MEDS: CYCLOBENZAPRINE 10 MG TAB PO SCH (22:08)
--- NOTE | 2019-10-09 01:54 | PN ---
PROGRESS NOTE DATE OF SERVICE: 10/08/2019 This 69-year-old woman is admitted with multiple medical problems and left hip surgery is being closely monitored. Patient has significant pain and cough also. A chest x- ray was done yesterday which was personally reviewed by me showed bilateral atelectasis. PAST MEDICAL HISTORY: Reviewed. REVIEW OF SYSTEMS: CARDIOVASCULAR SYSTEM: No angina. RESPIRATORY SYSTEM: As mentioned earlier. GI: As mentioned earlier. : No dysuria. NERVOUS SYSTEM: No numbness or weakness. CURRENT MEDICATIONS: Current medications are reviewed and include: 1. [place] 5 mg q.6 p.r.n. 2. Ventolin. 3. Eliquis. 4. Aspirin. 5. Symbicort 160/4.5. 6. Flexeril. 7. Valium. 8. Bentyl. 9. Flovent. 10.Neurontin. 11.Dilaudid. 12.Vistaril. 13.NovoLog. 14.Synthroid. 15.Singulair. 16.Narcan. 17.Zofran. 18.Protonix. 19.Mysoline. 20.Senokot-S. PHYSICAL EXAMINATION: The patient is alert and oriented x3. Pulse 72, blood pressure 129/73, respiration 18, temperature 98.4, pulse ox 96% on room air HEENT: Conjunctivae normal. NECK: No jugular venous distention. CARDIOVASCULAR: S1, S2 muffled. RESPIRATORY: Breath sounds diminished at the bases. A few scattered rhonchi, no crackles. ABDOMEN: Soft, nontender. LEGS: Status post surgery. NERVOUS SYSTEM: No focal deficits. LABS: WBC 4.4, hemoglobin 7.5. Glucose noted. ASSESSMENT: 1. Status post left hip total hip arthroplasty. 2. Acute blood loss anemia status post possibly postoperative as expected. 3. Increased WBC, possibly reactive. 4. Bilateral atelectasis. 5. Anemia, normocytic. 6. Hyponatremia. 7. Diabetes mellitus type 2. 8. History of deep vein thrombosis. 9. History of gastroesophageal reflux disease. 10.Hypertension. 11.History of degenerative joint disease. 12.History of sleep apnea. 13.History of glaucoma. 14.Obesity with body mass index 31.6. 15.FULL CODE. RECOMMENDATIONS AND DISCUSSION: Recommend to continue current medications, continue symptomatic treatment. Repeat labs. Otherwise, incentive spirometry, bronchodilators. Closely monitor. PT, OT evaluation, possible ECF rehab. Continue symptomatic treatment. The rest of the recommendations per Orthopedic Surgery. Further recommendations to follow. MMODL / IJN: [id number] /
[2019-10-09] MEDS: LEVOTHYROXINE 100 MCG TAB PO SCH (06:01)
[2019-10-09] MEDS: HYDROcodone/APAP 5-325MG 1 EACH TAB PO PRN (06:02)
[2019-10-09] MEDS: LACTATED RINGERS 1,000 ML IV SCH (06:42)
[2019-10-09 07:24] LABS: Glucose,Whole Blood 140 mg/dL (75-99)
[2019-10-09] MEDS: DICYCLOMINE 10 MG CAP PO SCH (07:32)
[2019-10-09] MEDS: PANTOPRAZOLE 40 MG TABLET PO SCH (07:32)
[2019-10-09] MEDS: GABAPENTIN 300 MG CAP PO SCH (07:32)
[2019-10-09] MEDS: INSULIN ASPART (NovoLOG) 100 UNIT/ML VIAL SQ SCH ×2 (07:32→11:55)
[2019-10-09] MEDS: APIXABAN 2.5 MG TABLET PO SCH (07:32)
[2019-10-09] MEDS: ASPIRIN 81 MG PO SCH (07:32)
[2019-10-09] MEDS: LEVOTHYROXINE 75 MCG TAB PO SCH (07:37)
[2019-10-09 08:02] VITALS: BP 103/57; PULSE 62; RESP 17; TEMP 98.4
[2019-10-09] MEDS: FLUTICASONE 44 MCG INHALER INHALATION SCH (08:23)
[2019-10-09] MEDS: SYMBICORT 160-4.5 MCG INHALER INHALATION SCH (08:23)
[2019-10-09] MEDS: ALBUTEROL NEBULIZED 2.5 MG/3 ML INHALATION SCH (08:30)
--- NOTE | 2019-10-09 08:43 | P.DS ---
Providers Date of admission: 10/03/19 09:58 Expected date of discharge: 10/09/19 Attending physician: Sonny Kim Consults: 10/02/19 17:53 Consult Physician Routine Consulting Provider: Sonny Kim Consult Reason/Comments: medical management Do you want consulting provider notified?: Yes 10/04/19 19:56 Consult Physician Routine Consulting Provider: Serene Cui Consult Reason/Comments: Medical Management Do you want consulting provider notified?: Yes Primary care physician: Josy Man - Discharge Diagnosis(es) (1) Acute blood loss as cause of postoperative anemia Current Visit: Yes Status: Acute (2) Primary osteoarthritis of left hip Current Visit: Yes Status: Acute (3) Status post left hip replacement Current Visit: Yes Status: Acute Hospital Course: This is a 69-year-old female with known history of degenerative arthritis of the left hip. The patient presents for evaluation. After discussion and consideration patient elects to proceed with total hip arthroplasty. The patient is seen preoperatively by her primary care physician and cleared for surgery. Patient is admitted to [facility] on 10/03/2019 for total hip arthro plasty. The procedure is performed without complication or sequelae. The patient is doing fairly well postoperatively. She did have EBL of 750 intraoperatively. Her hemoglobin was down to 6.9 on postoperative day #2. Hemoglobin has been stable over the weekend. Labs and vital signs are stable on day of discharge. On day of discharge patient's hip incision is healing well. There is minimal erythema. There is no drainage on the optifoam dressing noted at this time. There is minimal soft tissue swelling to the hip and thigh. Patient has full foot and ankle motion without difficulty or pain. Neurovascular status to the left lower extremity is intact. Patient is discharged to home in good condition. Please see med rec for accurate list of home medications. Plan - Discharge Summary Discharge Rx Participant: No New Discharge Prescriptions: New HYDROcodone/APAP 5-325MG [Vincent 5] 1 - 2 each PO Q4-6H PRN #30 tab PRN Reason: Pain Magnesium Hydroxide [Milk of Magnesia Concentrate] 2,400 mg PO DAILY PRN ml PRN Reason: Constipation INSULIN ASPART (NovoLOG) [NovoLOG (formulary)] 0 unit SQ ACHS vial Pantoprazole Sodium [Protonix] 40 mg PO DAILY #30 tablet.dr Sennosides-Docusate Sodium [Senokot-S] 2 each PO HS tab Albuterol Nebulized [Ventolin Nebulized] 2.5 mg INHALATION RT-BID ml Ondansetron Odt [Zofran Odt] 4 mg PO Q8HR PRN #10 tab PRN Reason: Nausea Continue Fluticasone Propionate [Flovent Diskus] 1 puff INHALATION DIRECTED PRN PRN Reason: Shortness Of Breath Montelukast [Singulair] 10 mg PO HS Levothyroxine Sodium [Synthroid] 150 mcg PO SUTUTHSA Levothyroxine Sodium [Synthroid] 175 mcg PO MOWEFR Nitroglycerin Sl Tabs [Nitrostat] 0.4 mg SL DIRECTED PRN PRN Reason: chest pain Cyclobenzaprine [Flexeril] 10 mg PO HS Dicyclomine [Bentyl] 20 mg PO QAM Dicyclomine [Bentyl] 40 mg PO HS Primidone [Mysoline] 300 mg PO HS Famotidine [Pepcid] 20 mg PO DAILY Apixaban [Eliquis] 2.5 mg PO BID Multivit with Calcium,Iron,Min [Women's Multivitamin] 1 each PO BID Aspirin [Adult Low Dose Aspirin EC] 81 mg PO DAILY Discontinued Lisinopril [Zestril] 2.5 mg PO DAILY Acetaminophen-Codeine 300-30mg [Tylenol w/codeine #3] 2 tab PO HS PRN PRN Reason: Pain Potassium 300 mg PO QAM Potassium 200 mg PO HS No Action Gabapentin [Neurontin] 300 mg PO BID Discharge Medication List Fluticasone Propionate [Flovent Diskus] 1 puff INHALATION DIRECTED PRN 10/02/13 [History] Levothyroxine Sodium [Synthroid] 150 mcg PO SUTUTHSA 10/02/13 [History] Levothyroxine Sodium [Synthroid] 175 mcg PO MOWEFR 10/02/13 [History] Montelukast [Singulair] 10 mg PO HS 10/02/13 [History] Nitroglycerin Sl Tabs [Nitrostat] 0.4 mg SL DIRECTED PRN 10/02/13 [History] Cyclobenzaprine [Flexeril] 10 mg PO HS 05/26/16 [History] Apixaban [Eliquis] 2.5 mg PO BID 09/29/19 [History] Aspirin [Adult Low Dose Aspirin EC] 81 mg PO DAILY 09/29/19 [History] Dicyclomine [Bentyl] 20 mg PO QAM 09/29/19 [History] Dicyclomine [Bentyl] 40 mg PO HS 09/29/19 [History] Famotidine [Pepcid] 20 mg PO DAILY 09/29/19 [History] Multivit with Calcium,Iron,Min [Women's Multivitamin] 1 each PO BID 09/29/19 [History] Primidone [Mysoline] 300 mg PO HS 09/29/19 [History] HYDROcodone/APAP 5-325MG [Vincent 5] 1 - 2 each PO Q4-6H PRN #30 tab 10/05/19 [Rx] Albuterol Nebulized [Ventolin Nebulized] 2.5 mg INHALATION RT-BID ml 10/06/19 [Rx] INSULIN ASPART (NovoLOG) [NovoLOG (formulary)] 0 unit SQ ACHS vial 10/06/19 [Rx] Magnesium Hydroxide [Milk of Magnesia Concentrate] 2,400 mg PO DAILY PRN ml 10/06/19 [Rx] Ondansetron Odt [Zofran Odt] 4 mg PO Q8HR PRN #10 tab 10/06/19 [Rx] Pantoprazole Sodium [Protonix] 40 mg PO DAILY #30 tablet. 10/06/19 [Rx] Sennosides-Docusate Sodium [Senokot-S] 2 each PO HS tab 10/06/19 [Rx] Gabapentin [Neurontin] 300 mg PO BID 10/08/19 [History] Follow up Appointment(s)/Referral(s): [facility], [NON-STAFF] - Sonny Kim MD [STAFF PHYSICIAN] - 10/17/19 1:45 pm Ambulatory/Diagnostic Orders: Complete Blood Count w/diff [LAB.AMB] Time Frame: 3 Days, Location: None Selected Activity/Diet/Wound Care/Special Instructions: Patient is going to [facility] Continue current diet Continue monitoring blood sugars before meals and at bedtime and treat accordingly with sliding scale Activity as tolerated Follow-up with orthopedic surgery in the outpatient setting as scheduled Repeat labs in 3 days to monitor hemoglobin Continue Eliquis and baby aspirin daily . Toe-touch weightbearing to the left lower extremity with walker. Discharge Disposition: TRANSFER TO SNF/ECF
[2019-10-09 11:21] LABS: Glucose,Whole Blood 142 mg/dL (75-99)
[2019-10-09] MEDS: MULTIVITAMINS, THERA 1 EACH TAB PO SCH (11:55)
--- NOTE | 2019-10-09 14:40 | P.PN ---
Subjective Progress Note Date: 10/09/19 Principal diagnosis: This is a 69-year-old female who was recently admitted and underwent left total hip arthroplasty and is being closely monitored. Patient states that her cough is somewhat improved and a chest x-ray was done yesterday showing bilateral atelectasis. Patient instructed to continue using incentive spirometer at least 10 times every hour while awake. Patient also to continue with inhalers and BiPAP as she normally uses at night. Patient also instructed to increase activity as tolerated. Scheduled to go to [facility] today for continued PT/OT therapy. Currently no reports of chest pain, shortness of breath, or palpitations. Patient is afebrile. Patient has intermittent nausea at times although no reports of vomiting and patient is tolerating diet. Objective - Vital Signs Vital signs: Vital Signs Temp 98.4 F 10/09/19 07:00 Pulse 62 10/09/19 07:00 Resp 17 10/09/19 07:00 BP 103/57 10/09/19 07:00 Pulse Ox 93 L 10/09/19 07:00 Intake & Output 10/08/19 10/09/19 10/09/19 18:59 06:59 18:59 Intake Total 540 Output Total 775 650 Balance -235 -650 Intake: Oral 540 Output: Urine 775 650 Other: Voiding Method Bedside Commode # Voids 1 1 # Bowel Movements 1 - Exam Gen: This is a 69-year-old female sitting up in the chair, awake, alert and oriented 3, well-developed, well-nourished. Temp is 98.4F, pulse is 62, respirations are 17, blood pressure is 103/57, oxygen saturation is 93% on room air. HEENT: Head is atraumatic, normocephalic. Pupils equal, round. Sclerae is a nicteric. NECK: Supple. No JVD. No lymphadenopathy. No thyromegaly. LUNGS: Diminished breath sounds at the bases with no wheezing or rhonchi noted. No intercostal retractions. HEART: S1, S2 are present ABDOMEN: Soft. Bowel sounds are present. No masses. No tenderness. EXTREMITIES: No pedal edema. No calf tenderness. Left surgical hip dressing is dry and intact with no increasing erythema noted. NEUROLOGICAL: Patient is awake, alert and oriented x3. Diffusely weak - Labs CBC & Chem 7: 10/08/19 13:22 07/04/20 08:45 Labs: Abnormal Lab Results - Last 24 Hours (Table) 10/08/19 10/08/19 10/09/19 Range/Units 16:53 19:53 07:18 POC Glucose (mg/dL) 213 H 159 H 140 H (75-99) mg/dL 10/09/19 Range/Units 11:20 POC Glucose (mg/dL) 142 H (75-99) mg/dL
== END 2019-10-09 11:54 | DRG 470 ==
LOC: OR 10:23 → 6PED 17:26 → OR 10-03 09:58 → 6PED 10-03 09:58 → 4SSUR 10-05 17:34
PROVIDERS: ADMIT Orthopaedic Surgery; ATTEND Orthopaedic Surgery
PROC: 5A09457 Assistance with Respiratory Ventilation, 24-96 Consecutive Hours, Continuous Positive Airway Pressure (ICD-10-PCS; 2019-10-02)
PROC: 0SRB02A Replacement of Left Hip Joint with Metal on Polyethylene Synthetic Substitute, Uncemented, Open Approach (ICD-10-PCS; principal; 2019-10-02 12:30)
PROC: 30233N1 Transfusion of Nonautologous Red Blood Cells into Peripheral Vein, Percutaneous Approach (ICD-10-PCS; 2019-10-04)
DX: M16.12 Unilateral primary osteoarthritis, left hip (principal); D62 Acute posthemorrhagic anemia; J98.11 Atelectasis; E87.1 Hypo-osmolality and hyponatremia; Z11.59 Encounter for screening for other viral diseases; E66.9 Obesity, unspecified; E11.9 Type 2 diabetes mellitus without complications; J44.9 Chronic obstructive pulmonary disease, unspecified; I10 Essential (primary) hypertension; K21.9 Gastro-esophageal reflux disease without esophagitis; E03.9 Hypothyroidism, unspecified; G47.30 Sleep apnea, unspecified; H40.9 Unspecified glaucoma; H91.93 Unspecified hearing loss, bilateral; R11.2 Nausea with vomiting, unspecified; R33.9 Retention of urine, unspecified; Z68.31 Body mass index [BMI] 31.0-31.9, adult; Z79.01 Long term (current) use of anticoagulants; Z79.82 Long term (current) use of aspirin; Z79.890 Hormone replacement therapy; Z79.899 Other long term (current) drug therapy; Z91.048 Other nonmedicinal substance allergy status; Z87.01 Personal history of pneumonia (recurrent); Z98.890 Other specified postprocedural states; Z86.718 Personal history of other venous thrombosis and embolism; Z87.442 Personal history of urinary calculi; Z90.710 Acquired absence of both cervix and uterus; Z98.42 Cataract extraction status, left eye; Z98.41 Cataract extraction status, right eye; Z90.49 Acquired absence of other specified parts of digestive tract; Z87.19 Personal history of other diseases of the digestive system; Z88.1 Allergy status to other antibiotic agents; Z91.040 Latex allergy status; Z88.5 Allergy status to narcotic agent; Z88.8 Allergy status to other drugs, medicaments and biological substances; Z88.2 Allergy status to sulfonamides; Z82.49 Family history of ischemic heart disease and other diseases of the circulatory system; Z83.438 Family history of other disorder of lipoprotein metabolism and other lipidemia
CPT/HCPCS: 71045; 73501; 80048; 80053; 81003; 83036; 84484; 85025; 85027; 86850; 86891; 86900; 86901; 86920; 88300; 93005; 94640; 94760

== ENCOUNTER 2019-10-20 23:26 | Emergency (ER) | payer MEDICARE ==
[2019-10-20 23:34] VITALS: TEMP 98.3
--- NOTE | 2019-10-20 23:40 | ED ---
Chest Pain HPI - General Stated Complaint: Chest Pain Time Seen by Provider: 10/20/19 23:31 Source: patient, EMS Mode of arrival: EMS Limitations: no limitations - History of Present Illness MD Complaint: chest pain -: hour(s) Onset: during rest Pain Location: substernal Pain Radiation: none Severity: moderate Quality: heaviness Consistency: now resolved Improves With: nothing Worsens With: nothing Context: recent surgery Treatments Prior to Arrival: none - Related Data Home Medications Medication Instructions Recorded Confirmed Fluticasone Propionate [Flovent 1 puff INHALATION DIRECTED PRN 10/02/13 10/02/19 Diskus] Levothyroxine Sodium [Synthroid] 150 mcg PO SUTUTHSA 10/02/13 10/02/19 Levothyroxine Sodium [Synthroid] 175 mcg PO MOWEFR 10/02/13 10/02/19 Montelukast [Singulair] 10 mg PO HS 10/02/13 10/02/19 Nitroglycerin Sl Tabs [Nitrostat] 0.4 mg SL DIRECTED PRN 10/02/13 10/02/19 Cyclobenzaprine [Flexeril] 10 mg PO HS 05/26/16 10/02/19 Apixaban [Eliquis] 2.5 mg PO BID 09/29/19 10/02/19 Aspirin [Adult Low Dose Aspirin EC] 81 mg PO DAILY 09/29/19 10/02/19 Dicyclomine [Bentyl] 20 mg PO QAM 09/29/19 10/02/19 Dicyclomine [Bentyl] 40 mg PO HS 09/29/19 10/02/19 Famotidine [Pepcid] 20 mg PO DAILY 09/29/19 10/02/19 Multivit with Calcium,Iron,Min 1 each PO BID 09/29/19 10/02/19 [Women's Multivitamin] Primidone [Mysoline] 300 mg PO HS 09/29/19 10/02/19 Previous Rx's Medication Instructions Recorded HYDROcodone/APAP 5-325MG [[place] 5] 1 - 2 each PO Q4-6H PRN #30 tab 10/05/19 Albuterol Nebulized [Ventolin 2.5 mg INHALATION RT-BID ml 10/06/19 Nebulized] INSULIN ASPART (NovoLOG) [NovoLOG 0 unit SQ ACHS vial 10/06/19 (formulary)] Magnesium Hydroxide [Milk of 2,400 mg PO DAILY PRN ml 10/06/19 Magnesia Concentrate] Ondansetron Odt [Zofran Odt] 4 mg PO Q8HR PRN #10 tab 10/06/19 Pantoprazole Sodium [Protonix] 40 mg PO DAILY #30 tablet. 10/06/19 Sennosides-Docusate Sodium 2 each PO HS tab 10/06/19 [Senokot-S] Albuterol Nebulized [Ventolin 2.5 mg INHALATION RT-TID PRN ml 10/09/19 Nebulized] Budesonide-Formot 160-4.5 Mcg 2 puff INHALATION RT-BID puff 10/09/19 [Symbicort 160-4.5 Mcg Inhaler] Gabapentin [Neurontin] 300 mg PO BID #4 cap 10/09/19 Allergies Allergy/AdvReac Type Severity Reaction Status Date / Time enoxaparin sodium Allergy Unknown RED LUMPS Verified 10/20/19 23:34 [From Lovenox] ON ABDOMEN AT INJECTION SITES erythromycin base Allergy Unknown Rash/Hives Verified 10/20/19 23:34 latex Allergy Unknown Itching Verified 10/20/19 23:34 morphine Allergy Rash/Hives Verified 10/20/19 23:34 Sulfa (Sulfonamide Allergy Anaphylaxis Verified 10/20/19 23:34 Antibiotics) tetracycline [Tetracycline] Allergy Rash/Hives Verified 10/20/19 23:34 adhesive AdvReac Rash/Hives Verified 10/20/19 23:34 Review of Systems ROS Statement: Those systems with pertinent positive or pertinent negative responses have been documented in the HPI. ROS Other: All systems not noted in ROS Statement are negative. Constitutional: Denies: fever, chills Respiratory: Denies: cough, dyspnea, wheezes Cardiovascular: Reports: as per HPI, chest pain. Denies: palpitations, edema, syncope Gastrointestinal: Denies: abdominal pain, nausea, vomiting, melena, hematochezia Genitourinary: Denies: dysuria, hematuria Musculoskeletal: Denies: back pain Skin: Denies: rash Neurological: Denies: headache, weakness, numbness EKG Findings - EKG Results: EKG: interpreted by ERMD, sinus rhythm (Rate 73 bpm), normal axis, normal QRS - Blocks, [place], Hypertrophy, ST Abn: Repolarization changes or abnormalities: nonspecific abnormality, ST segment, and/or T wave Past Medical History Past Medical History: Asthma, COPD, Diabetes Mellitus, Deep Vein Thrombosis (DVT), Eye Disorder, GERD/Reflux, Hypertension, Osteoarthritis (OA), Pneumonia, Skin Disorder, Sleep Apnea/CPAP/BIPAP, Thyroid Disorder Additional Past Medical History / Comment(s): Hx GLAUCOMA, TMJ, RENAL CALCULI, UTIs, DVT X 5 ( STATES CAUSED BY CONTROL PILLS AND HORMONES), USES BI-PAP MACHINE., NISQUALLY, HAND TREMORS, STATES DIABETES RESOLVED WITH WT LOSS- WATCHES DIET. History of Any Multi-Drug Resistant Organisms: None Reported Past Surgical History: Back Surgery, Bladder Surgery, Breast Surgery, Heart Catheterization, Hysterectomy, Joint Replacement, Orthopedic Surgery, Tonsillectomy Additional Past Surgical History / Comment(s): 04/17/16 arthrotomy removal olecranon spur and loose bodies R elbow. , RIGHT TOTAL HIP, LAPAROSCOPY, BREAST BIOPSY, JULIANNE CARPAL TUNNEL, JULIANNE KNEE REPLACEMENT, JULIANNE ROTATOR CUFF REPAIR, LEFT FOOT SURG. Past Anesthesia/Blood Transfusion Reactions: Postoperative Nausea & Vomiting (PONV) Past Psychological History: No Psychological Hx Reported Smoking Status: Never smoker Past Alcohol Use History: Rare Past Drug Use History: None Reported - Past Family History Mother Family Medical History: Hyperlipidemia, Hypertension Additional Family Medical History / Comment(s): Mother is 91 yrs old. Father Family Medical History: Osteoarthritis (OA) Sister(s) Family Medical History: Pulmonary Embolus General Exam Limitations: no limitations General appearance: alert, in no apparent distress Head exam: Present: atraumatic, normocephalic Eye exam: Present: normal appearance. Absent: scleral icterus, conjunctival injection Neck exam: Present: normal inspection Respiratory exam: Present: normal lung sounds bilaterally. Absent: respiratory distress, wheezes, rales, rhonchi, stridor Cardiovascular Exam: Present: regular rate, normal rhythm, normal heart sounds. Absent: systolic murmur, diastolic murmur, rubs, gallop GI/Abdominal exam: Present: soft. Absent: distended, tenderness, guarding, rebound, rigid Extremities exam: Present: normal inspection, normal capillary refill. Absent: pedal edema, calf tenderness Neurological exam: Present: alert Skin exam: Present: warm, dry, intact, normal color. 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
[2019-10-20] MEDS ORDERED: KETOROLAC 30 MG/ML 1 ML VIAL IVP STA (23:47)
[2019-10-21 00:07] LABS: Basophils # (A) 0.1 k/uL (0-0.2); Basophils % (A) 1 %; Eosinophils # (A) 0.3 k/uL (0-0.7); Eosinophils % (A) 5 %; HCT 31.8 % (34.0-46.0); HGB 10.3 gm/dL (11.4-16.0); Hypochromasia Slight; Lymphocytes % (A) 39 %; MCH 31.9 pg (25.0-35.0); MCHC 32.4 g/dL (31.0-37.0); MCV 98.3 fL (80.0-100.0); Macrocytosis Slight; Mean Platelet Volume 6.3; Monocytes # (A) 0.3 k/uL (0-1.0); Monocytes % (A) 6 %; Neutrophils # (A) 2.4 k/uL (1.3-7.7); Neutrophils % (A) 46 %; RBC 3.23 m/uL (3.80-5.40); RDW 15.8 % (11.5-15.5); WBC 5.2 k/uL (3.8-10.6)
--- NOTE | 2019-10-21 00:08 | XR ---
EXAMINATION TYPE: XR chest 1V portable DATE OF EXAM: 10/20/2019 COMPARISON: 10/07/2019 HISTORY: Chest pain TECHNIQUE: Single view FINDINGS: Heart and mediastinum are normal. Lungs are clear. Diaphragm is normal. Bony thorax appears normal. There are chest leads. IMPRESSION: Normal chest. There is clearing of the atelectasis in the right midlung compared to old e xam.
[2019-10-21 00:11] LABS: Platelet Count 436 k/uL (150-450)
[2019-10-21 00:13] LABS: ALT 17 U/L (4-34); AST 23 U/L (14-36); African American GFR (CKD) >90 (>60 ml/min/1.73 sqM); Albumin 3.8 g/dL (3.5-5.0); Alkaline Phosphatase 123 U/L (38-126); Anion Gap 9 mmol/L; Blood Urea Nitrogen 16 mg/dL (7-17); Calcium 9.3 mg/dL (8.4-10.2); Carbon Dioxide 26 mmol/L (22-30); Chloride 100 mmol/L (98-107); Glucose 129 mg/dL (74-99); Magnesium 1.9 mg/dL (1.6-2.3); Non-African American GFR(CKD) >90 (>60 ml/min/1.73 sqM); Sodium 135 mmol/L (137-145); Total Bilirubin 0.3 mg/dL (0.2-1.3); Total Protein 6.2 g/dL (6.3-8.2)
[2019-10-21 00:21] LABS: INR 0.9 (<1.2); Partial Thromboplastin Time 22.2 sec (22.0-30.0); Prothrombin Time 9.7 sec (9.0-12.0)
[2019-10-21 00:28] LABS: D-Dimer 3.33 mg/L FEU (<0.60)
--- NOTE | 2019-10-21 01:10 | CT ---
EXAMINATION TYPE: CT chest angio for PE DATE OF EXAM: 10/21/2019 COMPARISON: None HISTORY: PE Chest pain CT DLP: 550.5 mGycm Automated exposure control for dose reduction was used. CONTRAST: Performed with IV Contrast, patient injected with 70 mL of Isovue 370. There are 3-D post processed images. The lungs are clear of consolidation. There is mild subsegmental atelectasis at the posterior lung ba ses. There is no pleural effusion. There is no evidence of a pulmonary mass. There is no mediastinal adenopathy. Thoracic aorta is atheromatous. There are no hilar masses. There is normal contrast opacification of the pulmonary arteries. There are no filling defects. Heart size is normal. There is no pericardial effusion. Thoracic spine is intact. There is 15% wedging of T5 vertebra that is probably old. Sternum is intact . IMPRESSION: No evidence of pulmonary embolism. Mild subsegmental atelectasis at the lung bases. T5 mild compression fracture is probably old.
[2019-10-21] MEDS ORDERED: Acetaminophen-Codeine 300-30mg TAB PO STA (02:16)
[2019-10-21 03:28] VITALS: BP 127/64; PULSE 63; RESP 14
== END 2019-10-21 04:06 | disposition home or self-care (01) ==
LOC: EC 23:26
DX: R07.89 Other chest pain (principal); I10 Essential (primary) hypertension; G47.30 Sleep apnea, unspecified; J44.9 Chronic obstructive pulmonary disease, unspecified; E07.9 Disorder of thyroid, unspecified; M26.609 Unspecified temporomandibular joint disorder, unspecified side; M19.90 Unspecified osteoarthritis, unspecified site; K21.9 Gastro-esophageal reflux disease without esophagitis; Z79.890 Hormone replacement therapy; Z79.82 Long term (current) use of aspirin; Z79.899 Other long term (current) drug therapy; Z79.01 Long term (current) use of anticoagulants; Z88.8 Allergy status to other drugs, medicaments and biological substances; Z88.1 Allergy status to other antibiotic agents; Z91.040 Latex allergy status; Z88.5 Allergy status to narcotic agent; Z88.2 Allergy status to sulfonamides; Z91.048 Other nonmedicinal substance allergy status; Z99.89 Dependence on other enabling machines and devices; Z95.5 Presence of coronary angioplasty implant and graft; Z86.718 Personal history of other venous thrombosis and embolism; Z96.653 Presence of artificial knee joint, bilateral
CPT/HCPCS: 36415 ×2; 93005; 85379; 80053; 83735; 84484 ×2; 85025; 85610; 85730; 71045; 71275; 99285; 96374; J1885; Q9967

== ENCOUNTER → 2020-01-29 | Outpatient (CLI) | payer MEDICARE ==
[2020-01-29 14:27] LABS: Basophils % (A) 1 %; Eosinophils # (A) 0.1 k/uL (0-0.7); Eosinophils % (A) 2 %; HCT 39.7 % (34.0-46.0); HGB 13.2 gm/dL (11.4-16.0); Lymphocytes # (A) 1.7 k/uL (1.0-4.8); Lymphocytes % (A) 35 %; MCH 31.1 pg (25.0-35.0); MCHC 33.2 g/dL (31.0-37.0); MCV 93.5 fL (80.0-100.0); Mean Platelet Volume 6.2; Monocytes # (A) 0.3 k/uL (0-1.0); Monocytes % (A) 6 %; Neutrophils # (A) 2.7 k/uL (1.3-7.7); Neutrophils % (A) 55 %; Platelet Count 207 k/uL (150-450); RBC 4.24 m/uL (3.80-5.40); RDW 13.3 % (11.5-15.5); WBC 4.9 k/uL (3.8-10.6)
[2020-01-29 19:34] LABS: Erythrocyte Sedimentation Rate 10 mm/Hr (0-30)
[2020-01-29 20:34] LABS: African American GFR (CKD) 106.3 (60.0-200.0); Anion Gap 8.6 mmol/L (4.00-12.00); C Reactive Protein 0.4 mg/dL (0.0-0.8); Calcium 9.1 mg/dL (8.7-10.3); Carbon Dioxide 28.4 mmol/L (21.6-31.8); Non-African American GFR(CKD) 91.7 (60.0-200.0); Potassium 4.4 mmol/L (3.5-5.5); Uric Acid 4.2 mg/dL (2.9-7.7)
[2020-01-30 01:45] LABS: Cyclic Citrull Pep IgG Unit <0.5 U/mL; Cyclic Citrullinated Pep IgG NEGATIVE (NEGATIVE)
[2020-01-30 09:58] LABS: Angiotensin-1 Converting Enz. 27 U/L (8-52)
[2020-01-30 12:58] LABS: HLA B27 NEGATIVE
== END | disposition home or self-care (01) ==
LOC: LABWHC1 12:14
PROVIDERS: ATTEND Orthopaedic Surgery
DX: E03.9 Hypothyroidism, unspecified (principal); I11.9 Hypertensive heart disease without heart failure; M25.562 Pain in left knee; M25.552 Pain in left hip; M54.5 Low back pain; R06.02 Shortness of breath; S70.02XD Contusion of left hip, subsequent encounter; S72.115D Nondisplaced fracture of greater trochanter of left femur, subsequent encounter for closed fracture with routine healing; Z96.642 Presence of left artificial hip joint; Z47.1 Aftercare following joint replacement surgery; Z96.652 Presence of left artificial knee joint
CPT/HCPCS: 36415; 80048; 82164; 82306; 82550; 84439; 84443; 84450; 84460; 84550; 85025; 85652; 86038; 86140; 86200; 86812

== ENCOUNTER 2020-02-09 13:42 | Observation (INO) | payer MEDICARE ==
--- NOTE | 2020-02-09 14:42 | ED ---
Chest Pain HPI - General Chief Complaint: Chest Pain Stated Complaint: Chest Pain Time Seen by Provider: 02/09/20 14:23 Source: patient, RN notes reviewed, old records reviewed Mode of arrival: EMS Limitations: no limitations - History of Present Illness Initial Comments: This is a 70-year-old female is mildly poor strain secondary to age, patient presents today for chest pain, patient is competent complex medical history. Patient states this chest pain right-sided chest pain down right arm. No trauma no nausea vomiting, no fevers. No travel history or sick contacts and no recent hospitalizations per patient MD Complaint: chest pain -: hour(s) Onset: during rest, during exertion Pain Location: substernal Pain Radiation: RUE Severity: mild Severity scale (1-10): 3 Quality: tightness Consistency: now resolved Improves With: nothing Worsens With: nothing Context: other (none) Anginal Symptoms: other (none) Other Symptoms: other (none) Treatments Prior to Arrival: none - Related Data Home Medications Medication Instructions Recorded Confirmed Fluticasone Propionate [Flovent 1 puff INHALATION RT-DAILY PRN 10/02/13 02/09/20 Diskus] Levothyroxine Sodium [Synthroid] 150 mcg PO SUTUTHSA 10/02/13 02/09/20 Levothyroxine Sodium [Synthroid] 175 mcg PO MOWEFR 10/02/13 02/09/20 Montelukast [Singulair] 10 mg PO HS 10/02/13 02/09/20 Nitroglycerin Sl Tabs [Nitrostat] 0.4 mg SL Q5M PRN 10/02/13 02/09/20 Cyclobenzaprine [Flexeril] 10 mg PO BID 05/26/16 02/09/20 Apixaban [Eliquis] 2.5 mg PO BID 09/29/19 02/09/20 Aspirin [Adult Low Dose Aspirin EC] 81 mg PO DAILY 09/29/19 02/09/20 Dicyclomine [Bentyl] 10 mg PO DAILY 09/29/19 02/09/20 Famotidine [Pepcid] 20 mg PO BID 09/29/19 02/09/20 Multivit with Calcium,Iron,Min 1 tab PO DAILY 09/29/19 02/09/20 [Women's Multivitamin] Albuterol Nebulized [Ventolin 2.5 mg INHALATION RT-BID PRN 02/09/20 02/09/20 Nebulized] Brimonidine Tartrate [Alphagan P 1 drop BOTH EYES BID 02/09/20 02/09/20 0.1% Ophth Soln] Gabapentin [Neurontin] 300 mg PO HS 02/09/20 02/09/20 Insulin Aspart [NovoLOG Flexpen] See Protocol SQ AC-TID 02/09/20 02/09/20 Potassium Chloride ER [K-Dur 20] 100 meq PO DAILY 02/09/20 02/09/20 Zinc 50 mg PO DAILY 02/09/20 02/09/20 glipiZIDE XL [Glucotrol XL] 2.5 mg PO DAILY 02/09/20 02/09/20 lisinopriL [Zestril] 2.5 mg PO DAILY 02/09/20 02/09/20 metFORMIN HCL ER [Glucophage Xr] 500 mg PO PC-SUPPER 02/09/20 02/09/20 Allergies Allergy/AdvReac Type Severity Reaction Status Date / Time enoxaparin sodium Allergy Unknown RED LUMPS Verified 02/09/20 17:04 [From Lovenox] ON ABDOMEN AT INJECTION SITES erythromycin base Allergy Unknown Rash/Hives Verified 02/09/20 17:04 latex Allergy Unknown Itching Verified 02/09/20 17:04 morphine Allergy Rash/Hives Verified 02/09/20 17:04 Sulfa (Sulfonamide Allergy Anaphylaxis Verified 02/09/20 17:04 Antibiotics) tetracycline [Tetracycline] Allergy Rash/Hives Verified 02/09/20 17:04 adhesive AdvReac Rash/Hives Verified 02/09/20 17:04 Review of Systems ROS Statement: Those systems with pertinent positive or pertinent negative responses have been documented in the HPI. ROS Other: All systems not noted in ROS Statement are negative. EKG Findings - EKG Comments: EKG Findings:: EKG sinus rhythm 68 FL 104 QRS 80 QTC 440 Past Medical History Past Medical History: Asthma, COPD, Diabetes Mellitus, Deep Vein Thrombosis (DVT), Eye Disorder, GERD/Reflux, Hypertension, Osteoarthritis (OA), Pneumonia, Skin Disorder, Sleep Apnea/CPAP/BIPAP, Thyroid Disorder Additional Past Medical History / Comment(s): Hx GLAUCOMA, TMJ, RENAL CALCULI, UTIs, DVT X 5 ( STATES CAUSED BY CONTROL PILLS AND HORMONES), USES BI-PAP MACHINE., [place], HAND TREMORS, STATES DIABETES RESOLVED WITH WT LOSS- WATCHES DIET. History of Any Multi-Drug Resistant Organisms: None Reported Past Surgical History: Back Surgery, Bladder Surgery, Breast Surgery, Heart Catheterization, Hysterectomy, Joint Replacement, Orthopedic Surgery, Tonsillectomy Additional Past Surgical History / Comment(s): 04/17/16 arthrotomy removal olecranon spur and loose bodies R elbow. , RIGHT TOTAL HIP, LAPAROSCOPY, BREAST BIOPSY, JULIANNE CARPAL TUNNEL, JULIANNE KNEE REPLACEMENT, JULIANNE ROTATOR CUFF REPAIR, LEFT FOOT SURG. Past Anesthesia/Blood Transfusion Reactions: Postoperative Nausea & Vomiting (PONV) Past Psychological History: No Psychological Hx Reported Smoking Status: Never smoker Past Alcohol Use History: Rare Past Drug Use History: None Reported - Past Family History Mother Family Medical History: Hyperlipidemia, Hypertension Additional Family Medical History / Comment(s): Mother is 91 yrs old. Father Family Medical History: Osteoarthritis (OA) Sister(s) Family Medical History: Pulmonary Embolus General Exam Limitations: no limitations General appearance: alert, in no apparent distress Head exam: Present: atraumatic, normocephalic, normal inspection Eye exam: Present: normal appearance, PERRL, EOMI. Absent: scleral icterus, conjunctival injection, periorbital swelling ENT exam: Present: normal exam, mucous membranes moist Neck exam: Present: normal inspection. Absent: tenderness, meningismus, lymphadenopathy Respiratory exam: Present: normal lung sounds bilaterally. Absent: respiratory distress, wheezes, rales, rhonchi, stridor Cardiovascular Exam: Present: regular rate, normal rhythm, normal heart sounds. Absent: systolic murmur, diastolic murmur, rubs, gallop, clicks GI/Abdominal exam: Present: soft, normal bowel sounds. Absent: distended, tend erness, guarding, rebound, rigid Extremities exam: Present: normal inspection, full ROM, normal capillary refill. Absent: tenderness, pedal edema, joint swelling, calf tenderness Back exam: Present: normal inspection Neurological exam: Present: alert, oriented X3, CN II-XII intact Psychiatric exam: Present: normal affect, normal mood Skin exam: Present: warm, dry, intact, normal color. Absent: rash Course Vital Signs 02/09/20 02/09/20 02/09/20 14:05 15:30 16:00 Pulse Rate 66 61 63 Respiratory 18 11 L 10 L Rate Blood Pressure 137/67 134/72 124/57 O2 Sat by Pulse 98 100 98 Oximetry - Reevaluation(s) Reevaluation #1: Medical records reviewed Patient has persistent chest pain here in the ER Spoke patient regarding findings and results, questions answered Patient again still with chest pain and prefers admission and observation Chest Pain MDM - MDM 70 female DF for evaluation patient to be admitted for chest pain observation Critical Care Time Critical Care Time: Yes Total Critical Care Time: 31 Disposition Clinical Impression: Chest pain Disposition: ADMITTED IP TO THIS HOSP Condition: Undetermined Is patient prescribed a controlled substance at d/c from ED?: No
[2020-02-09 14:54] LABS: Basophils # (A) 0.1 k/uL (0-0.2); Basophils % (A) 1 %; Eosinophils # (A) 0.2 k/uL (0-0.7); Eosinophils % (A) 3 %; HCT 38.5 % (34.0-46.0); HGB 12.9 gm/dL (11.4-16.0); Lymphocytes # (A) 1.9 k/uL (1.0-4.8); Lymphocytes % (A) 32 %; MCH 31.4 pg (25.0-35.0); MCHC 33.4 g/dL (31.0-37.0); MCV 93.8 fL (80.0-100.0); Mean Platelet Volume 6.2; Monocytes # (A) 0.4 k/uL (0-1.0); Monocytes % (A) 7 %; Neutrophils # (A) 3.3 k/uL (1.3-7.7); Neutrophils % (A) 56 %; Platelet Count 190 k/uL (150-450); RBC 4.11 m/uL (3.80-5.40); RDW 13.4 % (11.5-15.5); WBC 5.9 k/uL (3.8-10.6)
[2020-02-09 15:10] LABS: ALT 15 U/L (4-34); AST 27 U/L (14-36); African American GFR (CKD) >90 (>60 ml/min/1.73 sqM); Albumin 3.7 g/dL (3.5-5.0); Alkaline Phosphatase 97 U/L (38-126); Anion Gap 3 mmol/L; Blood Urea Nitrogen 14 mg/dL (7-17); Calcium 8.9 mg/dL (8.4-10.2); Carbon Dioxide 29 mmol/L (22-30); Chloride 104 mmol/L (98-107); Glucose 108 mg/dL (74-99); Lipase 52 U/L (23-300); Magnesium 1.8 mg/dL (1.6-2.3); Non-African American GFR(CKD) >90 (>60 ml/min/1.73 sqM); Potassium 4.6 mmol/L (3.5-5.1); Sodium 136 mmol/L (137-145); Total Bilirubin 0.4 mg/dL (0.2-1.3); Total Protein 6.2 g/dL (6.3-8.2)
[2020-02-09 15:16] LABS: INR 0.9 (<1.2); Partial Thromboplastin Time 22.4 sec (22.0-30.0); Prothrombin Time 9.6 sec (9.0-12.0)
--- NOTE | 2020-02-09 15:21 | XR ---
EXAMINATION TYPE: XR chest 2V DATE OF EXAM: 02/09/2020 COMPARISON: 10/20/2019 INDICATION: Chest pain TECHNIQUE: Frontal and lateral views of the chest are obtained. FINDINGS: The heart size is normal. The pulmonary vasculature is normal. The lungs are clear. IMPRESSION: 1. No acute pulmonary process.
[2020-02-09] MEDS ORDERED: ASPIRIN 81 MG PO STA (17:08)
[2020-02-09] MEDS ORDERED: NITROGLYCERIN SL TABS 0.4 MG TAB SUBLINGUAL PRN (17:08)
[2020-02-09] MEDS ORDERED: ALBUTEROL NEBULIZED 2.5 MG/3 ML INHALATION PRN (20:04)
[2020-02-09] MEDS ORDERED: HYDROmorphone 0.5 MG/0.5 ML SYRINGE IVP PRN (20:14)
[2020-02-09 20:23] LABS: Glucose,Whole Blood 170 mg/dL (75-99)
[2020-02-09] MEDS ORDERED: GABAPENTIN 300 MG CAP PO SCH (21:00)
[2020-02-09] MEDS ORDERED: MONTELUKAST 10 MG TAB PO SCH (21:00)
[2020-02-09 21:10] LABS: C Reactive Protein 5.4 mg/L (<10.0)
[2020-02-09] MEDS ORDERED: RX INFO: IV CONTRAST WAS GIVEN 1 EACH MISC MISCELLANE PRN (21:18)
--- NOTE | 2020-02-09 22:04 | CT ---
EXAMINATION TYPE: CT angio chest DATE OF EXAM: 02/09/2020 COMPARISON: 10/21/2019 HISTORY: Elevated d-dimer CT DLP: 337 mGycm Automated exposure control for dose reduction was used. CONTRAST: Performed with IV Contrast, patient injected with 100 mL of Isovue 370. There are 3-D post processed images. The lungs are clear of consolidation. There is no evidence of a pulmonary mass. Heart size is normal. There is no pericardial effusion. There is no pleural effusion. There are no hilar masses. There is normal contrast opacification of the pulmonary arteries. There ar e no filling defects. Thoracic aorta is intact. The bony thorax is intact. There is no sign of an acu te fracture. IMPRESSION: No evidence of pulmonary embolism. No adverse change.
[2020-02-09] MEDS: FAMOTIDINE 20 MG TAB PO SCH (22:06)
[2020-02-09] MEDS: CYCLOBENZAPRINE 10 MG TAB PO SCH (22:06)
[2020-02-09] MEDS: HYDROcodone/APAP 5-325MG 1 EACH TAB PO PRN (22:07)
[2020-02-09] MEDS: APIXABAN 2.5 MG TABLET PO SCH (22:07)
[2020-02-09] MEDS: BRIMONIDINE TARTRATE 0.2% DROPS 5 ML BTL BOTH EYES SCH (22:08)
[2020-02-09] MEDS: INSULIN ASPART (NovoLOG) 100 UNIT/ML VIAL SQ SCH (22:08)
[2020-02-09] MEDS: PANTOPRAZOLE 40 MG/10 ML VIAL IVP SCH (22:09)
[2020-02-09] MEDS ORDERED: LOPERAMIDE 2 MG CAP PO PRN (22:26)
--- NOTE | 2020-02-09 22:54 | HP ---
HISTORY AND PHYSICAL CHIEF COMPLAINTS: Chest pain and arm pain. HISTORY OF PRESENT ILLNESS: This 70-year-old woman with a past medical history of multiple medical problems, including asthma, COPD, diabetes mellitus, DVT, history of GERD, hypertension, history of DJD, sleep apnea, history of back surgery, bladder surgery, breast surgery, being followed by Dr. Josy Man in the outpatient setting, recently had left hip total arthroplasty by Dr. Kim. The patient had anemia during that time. Patient was receiving PT/OT and physical therapy. Currently the patient was complaining of chest pain which was felt in the anterior part of the chest and was also radiating to the right arm. The patient came to [facility] and was admitted for evaluation and treatment. The patient also had some diarrhea which is rather chronic. The patient is on Eliquis 2.5 mg b.i.d. at this time. There is no history of any fever, rigors or chills at this time. PAST MEDICAL HISTORY: History of asthma, COPD, diabetes mellitus, DVT, GERD, history of hypertension, DJD, history of pneumonia, history of sleep apnea, history of hypothyroidism, history of cardiac catheterization, back surgery. HOME MEDICATIONS: Home medications are Glucophage XR 500 mg at supper, Zestril 2.5 mg daily, Glucotrol XL, zinc, potassium chloride, Nitrostat, multivitamins, Singulair, Synthroid, NovoLog, Neurontin, Flovent, Pepcid, Bentyl, Flexeril, Alphagan eye drops, adult aspirin, Eliquis, Ventolin. ALLERGIES: MULTIPLE ALLERGIES: LOVENOX, ERYTHROMYCIN, LATEX, MORPHINE, SULFA, TETRACYCLINE, ADHESIVES. FAMILY HISTORY: History of hypertension and hyperlipidemia. SOCIAL HISTORY: No history of smoking. No history of alcohol intake. REVIEW OF SYSTEMS: ENT: No diminished hearing. No diminished vision. CARDIOVASCULAR SYSTEM: As mentioned earlier. RESPIRATORY SYSTEM: As mentioned earlier. GI: As mentioned earlier. : No dysuria or retention. NERVOUS SYSTEM: No numbness, weakness. ALLERGY/IMMUNOLOGY: As mentioned earlier. HEMATOLOGY/ONCOLOGY: As mentioned earlier. ENDOCRINE: As mentioned earlier. CONSTITUTIONAL: As mentioned earlier. DERMATOLOGY: Negative. RHEUMATOLOGY: As mentioned earlier. MUSCULOSKELETAL: As mentioned earlier. PSYCHIATRY: As mentioned earlier. PHYSICAL EXAMINATION: Patient alert and oriented x3. Pulse is 86, blood pressure 156/76, respiration 14, temperature 98.3, pulse ox 96% on room air. HEENT: Conjunctivae normal. Oral mucosa moist. NECK: No jugular venous distention. No carotid bruit. No lymph node enlargement. CARDIOVASCULAR SYSTEM: S1, S2 muffled. No S3. No S4. RESPIRATORY SYSTEM: Breath sounds diminished at the bases. A few scattered rhonchi and crackles. ABDOMEN: Soft, non-tender. No mass palpable. LEGS: No edema. No swelling. NERVOUS SYSTEM: Higher functions as mentioned earlier. Moves all 4 limbs. No focal motor or sensory deficit. LYMPHATICS: No lymph node palpable in neck, axillae or groin. SKIN: No ulcer, rash, bleeding. JOINTS: No active deforming arthropathy. LABS: CBC within normal limits. Sodium 136. ASSESSMENT: 1. Chest pain and right arm pain; rule out coronary artery disease. 2. Rule out pulmonary embolism. 3. Hyponatremia. 4. Elevated D-dimer. 5. History of recent left total hip joint arthroplasty. 6. History of asthma, chronic obstructive pulmonary disease. 7. Diabetes mellitus, type 2. 8. History of deep venous thrombosis. 9. History of gastroesophageal reflux disease. 10.Hypertension. 11.History of degenerative joint disease. 12.History of pneumonia. 13.History of sleep apnea. 14.History of hypothyroidism. 15.History of glaucoma. 16.History of deep venous thromboses x5. 17.History of back surgery, degenerative joint disease. RECOMMENDATIONS AND DISCUSSION: In this 70-year-old woman who presented with multiple complex medical issues, we will monitor the patient closely, continue the current medications, rule out myocardial infarction. Cardiology consultation. I would also recommend a D-dimer and a CT angio of the chest to rule out the possibility of pulmonary embolism. Otherwise, we will continue the rest of the medications, symptomatic treatment. Resume the home medications. Prognosis guarded. Further recommendations to follow. A copy of this dictation is being forwarded to Dr. Josy Man, who is the primary physician. MMODL / IJN: [id number] /
[2020-02-09] MEDS: FLUTICASONE 44 MCG INHALER INHALATION SCH (23:48)
[2020-02-10] MEDS: HYDROcodone/APAP 5-325MG 1 EACH TAB PO PRN (03:01)
[2020-02-10 03:55] VITALS: RESP 18
[2020-02-10 06:24] LABS: Glucose,Whole Blood 101 mg/dL (75-99)
[2020-02-10] MEDS ORDERED: LEVOTHYROXINE 75 MCG TAB PO SCH (06:30)
[2020-02-10] MEDS: FLUTICASONE 44 MCG INHALER INHALATION SCH (07:35)
[2020-02-10 08:00] VITALS: BP 117/71; PULSE 57; TEMP 97.7
[2020-02-10] MEDS: INSULIN ASPART (NovoLOG) 100 UNIT/ML VIAL SQ SCH ×2 (08:04→11:24)
[2020-02-10 08:09] LABS: Basophils % (A) 1 %; Eosinophils # (A) 0.2 k/uL (0-0.7); Eosinophils % (A) 4 %; HCT 38.3 % (34.0-46.0); HGB 12.9 gm/dL (11.4-16.0); Lymphocytes # (A) 1.7 k/uL (1.0-4.8); Lymphocytes % (A) 36 %; MCH 31.5 pg (25.0-35.0); MCHC 33.6 g/dL (31.0-37.0); MCV 93.8 fL (80.0-100.0); Mean Platelet Volume 6.1; Monocytes # (A) 0.3 k/uL (0-1.0); Monocytes % (A) 6 %; Neutrophils # (A) 2.5 k/uL (1.3-7.7); Neutrophils % (A) 52 %; Platelet Count 183 k/uL (150-450); RBC 4.09 m/uL (3.80-5.40); RDW 13.3 % (11.5-15.5); WBC 4.7 k/uL (3.8-10.6)
[2020-02-10] MEDS: PANTOPRAZOLE 40 MG/10 ML VIAL IVP SCH (08:11)
[2020-02-10] MEDS: BRIMONIDINE TARTRATE 0.2% DROPS 5 ML BTL BOTH EYES SCH (08:11)
[2020-02-10] MEDS: FAMOTIDINE 20 MG TAB PO SCH (08:12)
[2020-02-10] MEDS: CYCLOBENZAPRINE 10 MG TAB PO SCH (08:12)
[2020-02-10 08:34] LABS: African American GFR (CKD) >90 (>60 ml/min/1.73 sqM); Anion Gap 1 mmol/L; Blood Urea Nitrogen 11 mg/dL (7-17); Calcium 8.8 mg/dL (8.4-10.2); Carbon Dioxide 29 mmol/L (22-30); Chloride 104 mmol/L (98-107); Glucose 106 mg/dL (74-99); Non-African American GFR(CKD) >90 (>60 ml/min/1.73 sqM); Potassium 4.3 mmol/L (3.5-5.1); Sodium 134 mmol/L (137-145)
[2020-02-10] MEDS ORDERED: ASPIRIN 325 MG TAB PO SCH (09:00)
[2020-02-10] MEDS ORDERED: ZINC SULFATE 220 MG CAP PO SCH (09:00)
[2020-02-10] MEDS ORDERED: DICYCLOMINE 10 MG CAP PO SCH (09:00)
[2020-02-10] MEDS ORDERED: MULTIVITAMINS, THERA 1 EACH TAB PO SCH (09:00)
[2020-02-10] MEDS ORDERED: ASPIRIN 81 MG PO SCH (09:00)
[2020-02-10] MEDS: APIXABAN 2.5 MG TABLET PO SCH (09:34)
--- NOTE | 2020-02-10 11:57 | US ---
EXAMINATION TYPE: US venous doppler duplex LE LT DATE OF EXAM: 02/10/2020 11:17 AM COMPARISON: NONE CLINICAL HISTORY: pain in left leg, rule out dvt. SIDE PERFORMED: Left TECHNIQUE: The lower extremity deep venous system is examined utilizing real time linear array sonog robert with graded compression, doppler sonography and color-flow sonography. VESSELS IMAGED: External Iliac Vein (EIV) Common Femoral Vein Deep Femoral Vein Greater Saphenous Vein * Femoral Vein Popliteal Vein Small Saphenous Vein * Proximal Calf Veins (* superficial vessels) Left Leg: Negative for DVT. Normal flow, compressibility, and vascular waveforms. IMPRESSION: No deep venous thrombosis of the left lower extremity.
--- NOTE | 2020-02-10 16:01 | P.CRDCN ---
History of Present Illness Consult date: 02/10/20 History of present illness: This is a 70-year-old female with history of multiple medical problems including COPD, diabetes mellitus, DVT who recently underwent left hip total arthroplasty by Dr. Kim. Patient was in the rehab program and was getting PT and OT and physical therapy. Patient apparently developed chest pain which was in the anterior part of the chest associated with some tenderness. Pain was radiating to the right arm. In well that patient came to the hospital. Pain is relieved partially with [place]. EKGs did not reveal any acute changes. Cardiac enzymes are negative. Patient had a workup in June of this year with nuclear stress test which was negative for ischemia. Echo Cardigan showed normal LV function. In addition she is complaining of pain in the left lower extremity. A venous duplex study did not reveal any DVT. Patient is currently on anticoagulation therapy. Her pains appear to be noncardiac. Patient could be discharged home. Follow-up in the office as an outpatient Review of Systems As per the chart Past Medical History Past Medical History: Asthma, COPD, Diabetes Mellitus, Deep Vein Thrombosis (DVT), Eye Disorder, GERD/Reflux, Hypertension, Osteoarthritis (OA), Pneumonia, Skin Disorder, Sleep Apnea/CPAP/BIPAP, Thyroid Disorder Additional Past Medical History / Comment(s): Hx GLAUCOMA, TMJ, RENAL CALCULI, UTIs, DVT X 5 ( STATES CAUSED BY CONTROL PILLS AND HORMONES), USES BI-PAP MACHINE., [place], HAND TREMORS, STATES DIABETES RESOLVED WITH WT LOSS- WATCHES DIET. History of Any Multi-Drug Resistant Organisms: None Reported Past Surgical History: Back Surgery, Bladder Surgery, Breast Surgery, Heart Catheterization, Hysterectomy, Joint Replacement, Orthopedic Surgery, Tonsillectomy Additional Past Surgical History / Comment(s): 04/17/16 arthrotomy removal olecranon spur and loose bodies R elbow. , RIGHT TOTAL HIP, LAPAROSCOPY, BR EAST BIOPSY, JULIANNE CARPAL TUNNEL, JULIANNE KNEE REPLACEMENT, JULIANNE ROTATOR CUFF REPAIR, LEFT FOOT SURG. Past Anesthesia/Blood Transfusion Reactions: Postoperative Nausea & Vomiting (PO NV) Past Psychological History: No Psychological Hx Reported Smoking Status: Never smoker Past Alcohol Use History: Rare Past Drug Use History: None Reported - Past Family History Mother Family Medical History: Hyperlipidemia, Hypertension Additional Family Medical History / Comment(s): Mother is 91 yrs old. Father Family Medical History: Osteoarthritis (OA) Sister(s) Family Medical History: Pulmonary Embolus Medications and Allergies Home Medications Medication Instructions Recorded Confirmed Type Fluticasone Propionate [Flovent 1 puff INHALATION RT-DAILY PRN 10/02/13 02/09/20 History Diskus] Levothyroxine Sodium [Synthroid] 150 mcg PO SUTUTHSA 10/02/13 02/09/20 History Levothyroxine Sodium [Synthroid] 175 mcg PO MOWEFR 10/02/13 02/09/20 History Montelukast [Singulair] 10 mg PO HS 10/02/13 02/09/20 History Nitroglycerin Sl Tabs [Nitrostat] 0.4 mg SL Q5M PRN 10/02/13 02/09/20 History Cyclobenzaprine [Flexeril] 10 mg PO BID 05/26/16 02/09/20 History Apixaban [Eliquis] 2.5 mg PO BID 09/29/19 02/09/20 History Aspirin [Adult Low Dose Aspirin EC] 81 mg PO DAILY 09/29/19 02/09/20 History Dicyclomine [Bentyl] 10 mg PO DAILY 09/29/19 02/09/20 History Famotidine [Pepcid] 20 mg PO BID 09/29/19 02/09/20 History Multivit with Calcium,Iron,Min 1 tab PO DAILY 09/29/19 02/09/20 History [Women's Multivitamin] Albuterol Nebulized [Ventolin 2.5 mg INHALATION RT-BID PRN 02/09/20 02/09/20 History Nebulized] Brimonidine Tartrate [Alphagan P 1 drop BOTH EYES BID 02/09/20 02/09/20 History 0.1% Ophth Soln] Gabapentin [Neurontin] 300 mg PO HS 02/09/20 02/09/20 History Insulin Aspart [NovoLOG Flexpen] See Protocol SQ AC-TID 02/09/20 02/09/20 History Potassium Chloride ER [K-Dur 20] 100 meq PO DAILY 02/09/20 02/09/20 History Zinc 50 mg PO DAILY 02/09/20 02/09/20 History glipiZIDE XL [Glucotrol XL] 2.5 mg PO DAILY 02/09/20 02/09/20 History lisinopriL [Zestril] 2.5 mg PO DAILY 02/09/20 02/09/20 History metFORMIN HCL ER [Glucophage Xr] 500 mg PO PC-SUPPER 02/09/20 02/09/20 History Allergies Allergy/AdvReac Type Severity Reaction Status Date / Time enoxaparin sodium Allergy Unknown RED LUMPS Verified 02/09/20 17:04 [From Lovenox] ON ABDOMEN AT INJECTION SITES erythromycin base Allergy Unknown Rash/Hives Verified 02/09/20 17:04 latex Allergy Unknown Itching Verified 02/09/20 17:04 morphine Allergy Rash/Hives Verified 02/09/20 17:04 Sulfa (Sulfonamide Allergy Anaphylaxis Verified 02/09/20 17:04 Antibiotics) tetracycline [Tetracycline] Allergy Rash/Hives Verified 02/09/20 17:04 adhesive AdvReac Rash/Hives Verified 02/09/20 17:04 Physical Exam Vitals: Vital Signs Temp Pulse Pulse Resp BP BP Pulse Ox 02/10/20 08:13 57 L 18 02/10/20 07:59 97.7 F 57 L 117/71 96 02/10/20 03:00 98.1 F 72 18 105/62 96 02/09/20 21:00 98.3 F 86 14 156/76 96 02/09/20 18:54 98.3 F 86 14 156/76 86 L 02/09/20 18:52 98.3 F 86 14 156/76 96 02/09/20 17:58 78 133/63 02/09/20 16:00 63 10 L 124/57 98 Intake and Output 02/10/20 02/10/20 02/10/20 06:59 14:59 22:59 Output Total 1 1 Balance -1 -1 Output: Stool 1 1 Other: Voiding Method Toilet Toilet # Voids 1 1 GENERAL EXAM: Patient is alert and oriented and doesn't appear to be in any acute distress HEENT: Normocephalic. Normal reaction of pupils, equal size, normal range of extraocular motion. No erythema or exudates in the throat. NECK: No masses, no nuchal rigidity. CHEST: No chest wall deformity. LUNGS: Equal air entry with no crackles or wheeze. HEART: S1 and S2 normal with no audible mumurs or gallops. Regular rhythm, femor als equal on both sides.. ABDOMEN: No hepatosplenomegaly, normal bowel sounds, no guarding or rigidity. SKIN: No rashes CENTRAL NERVOUS SYSTEM: No focal deficits. EXTREMITIES: No cyanosis, clubbing or edema. Results 02/10/20 07:52 02/10/20 07:52 Cardiac Enzymes 02/09/20 02/09/20 Range/Units 18:32 20:41 Lactate Dehydrogenase 540 (313-618) U/L Troponin I <0.012 (0.000-0.034) ng/mL CBC 02/10/20 Range/Units 07:52 WBC 4.7 (3.8-10.6) k/uL RBC 4.09 (3.80-5.40) m/uL Hgb 12.9 (11.4-16.0) gm/dL Hct 38.3 (34.0-46.0) % Plt Count 183 (150-450) k/uL Comprehensive Metabolic Panel 02/10/20 Range/Units 07:52 Sodium 134 L (137-145) mmol/L Potassium 4.3 (3.5-5.1) mmol/L Chloride 104 (98-107) mmol/L Carbon Dioxide 29 (22-30) mmol/L BUN 11 (7-17) mg/dL Creatinine 0.55 (0.52-1.04) mg/dL Glucose 106 H (74-99) mg/dL Calcium 8.8 (8.4-10.2) mg/dL Intake and Output 02/10/20 02/10/20 02/10/20 06:59 14:59 22:59 Output Total 1 1 Balance -1 -1 Output: Stool 1 1 Other: Voiding Method Toilet Toilet # Voids 1 1 02/10/20 07:52 02/10/20 07:52 EKG Interpretations (text) Sinus rhythm Assessment and Plan (1) Acute blood loss as cause of postoperative anemia Status: Acute Code(s): D62 - ACUTE POSTHEMORRHAGIC ANEMIA SNOMED Code(s): 47810551229299052 (2) Chest pain Status: Acute Code(s): R07.9 - CHEST PAIN, UNSPECIFIED SNOMED Code(s): 298 13148 (3) Primary osteoarthritis of left hip Status: Acute Code(s): M16.12 - UNILATERAL PRIMARY OSTEOARTHRITIS, LEFT HIP SNOMED Code(s): 142397832149648 (4) S/P total hip arthroplasty Status: Acute Code(s): Z96.649 - PRESENCE OF UNSPECIFIED ARTIFICIAL HIP JOINT SNOMED Code(s): 922928708 (5) Diabetes Status: Chronic Code(s): E11.9 - TYPE 2 DIABETES MELLITUS WITHOUT COMPLICATIONS SNOMED Code(s): 26634085 Plan: Her chest pains are atypical and muscular skeletal in nature. Cardiac enzymes and EKGs are negative. Preop nuclear stress test is negative for ischemia. Patient could be discharged home
[2020-02-10 16:07] LABS: Hemoglobin A1C 6.2 % (4.0-6.0)
--- NOTE | 2020-02-10 20:41 | DS ---
DISCHARGE SUMMARY DATE OF SERVICE: 02/10/2020 FINAL DIAGNOSES: 1. Chest pain possibly musculoskeletal, myocardial infarction ruled out. 2. Recent negative stress test. 3. Mildly elevated D-dimer without any evidence of pulmonary embolism. 4. History of recent left total hip joint arthroplasty. 5. History of asthma, chronic obstructive pulmonary disease. 6. Diabetes type 2. 7. History of chronic diarrhea. 8. History of deep vein thrombosis. 9. Gastroesophageal reflux disease. 10.Hypertension. 11.History of degenerative joint disease. 12.History of pneumonia. 13.History of sleep apnea. 14.History of hypothyroidism. 15.History of glaucoma. 16.History of back surgery, degenerative joint disease. DISCHARGE DISPOSITION: The patient will be discharged in stable condition with guarded prognosis. Discharge cleared by Cardiology. HISTORY OF PRESENT ILLNESS: This 70-year-old woman with a past medical history of multiple medical problems as mentioned earlier, being followed by Dr. Josy Man in the outpatient setting was admitted with chest pain, myocardial infarction ruled out. Cardiology recommended outpatient followup. Patient was treated symptomatically, improved significantly. As mentioned, troponins were negative. On exam, vitals stable. Cardiovascular S1, S2. Abdomen soft. Nervous system: No focal deficits. DISCHARGE INSTRUCTIONS/MEDICATION: 1. Diet is cardiac diet. 2. Activity limited until followup. 3. Follow up with Dr. Josy Man in 2-3 days. 4. Follow up with Cardiology as recommended. MEDICATIONS: 1. Ecotrin 81 mg daily. 2. Alphagan 1 drop both eyes. 3. Bentyl 10 mg daily. 4. Eliquis 2.5 mg b.i.d. 5. Flexeril 10 mg b.i.d. 6. Fluticasone 1 puff daily. 7. Glucophage XR 500 mg daily as before. 8. Glucotrol XL 2.5 mg daily. 9. K-Dur 100 mEq p.o. daily. 10.Neurontin 300 mg q.h.s. 11.Nitrostat p.r.n. 12.NovoLog as before. 13.Pepcid 20 mg p.o. b.i.d. 14.Singulair 10 mg q.h.s. 15.Synthroid 150 mcg p.o. on Wednesday and 175 mg on Wednesday, Wednesday, Wednesday. 16.Albuterol as before. 17.Multivitamins 1 p.o. daily. 18.Zestril 2.5 mg. 19.Zinc 50 mg p.o. daily. Once again, the patient being discharged in stable condition. Guarded prognosis. MMODL / IJN: [id number] /
[2020-02-12] MEDS ORDERED: LEVOTHYROXINE 88 MCG TAB PO SCH (06:30)
== END 2020-02-10 14:35 | disposition home or self-care (01) ==
LOC: EC 13:42 → 1SOBS 17:08 → UNDODISOB 18:15
PROVIDERS: ADMIT Hospitalist; ATTEND Hospitalist
DX: R07.89 Other chest pain (principal); D62 Acute posthemorrhagic anemia; E03.9 Hypothyroidism, unspecified; E11.9 Type 2 diabetes mellitus without complications; E87.1 Hypo-osmolality and hyponatremia; G47.30 Sleep apnea, unspecified; I10 Essential (primary) hypertension; J44.9 Chronic obstructive pulmonary disease, unspecified; K21.9 Gastro-esophageal reflux disease without esophagitis; M16.12 Unilateral primary osteoarthritis, left hip; R79.89 Other specified abnormal findings of blood chemistry; Z79.01 Long term (current) use of anticoagulants; Z79.51 Long term (current) use of inhaled steroids; Z79.82 Long term (current) use of aspirin; Z79.84 Long term (current) use of oral hypoglycemic drugs; Z79.890 Hormone replacement therapy; Z79.899 Other long term (current) drug therapy; Z82.49 Family history of ischemic heart disease and other diseases of the circulatory system; Z86.718 Personal history of other venous thrombosis and embolism; Z87.01 Personal history of pneumonia (recurrent); Z87.442 Personal history of urinary calculi; Z96.649 Presence of unspecified artificial hip joint; Z96.653 Presence of artificial knee joint, bilateral
CPT/HCPCS: 96374; 96376; 99291; 36415; 93005 ×2; 85379; 83880; 80053; 80048; 85652; 83615; 83690; 83735; 84484; 85025 ×2; 85610; 85730; 86140; 87324; 83036; 87635; 71046; 93971; 71275; G0378 ×2; C9113 ×2; Q9967

== ENCOUNTER → 2020-03-26 | Outpatient (CLI) | payer MEDICARE ==
--- NOTE | 2020-03-27 11:53 | MM ---
Reason for exam: screening (asymptomatic). Last mammogram was performed 1 year and 4 months ago. History: Patient is postmenopausal. Benign stereotactic core biopsy of the right breast, March 26, 1999. Core biopsy of the right breast. Physical Findings: A clinical breast exam by your physician is recommended on an annual basis and results should be correlated with mammographic findings. MG 3D Screening Mammo W/Cad Bilateral CC and MLO view(s) were taken. Prior study comparison: November 14, 2018, bilateral MG 3d screening mammo w/cad. October 07, 2016, bilateral MG 3d screening mammo w/cad. There are scattered fibroglandular densities. Stable benign calcifications. No significant changes when compared with prior studies. ASSESSMENT: Benign, BI-RAD 2 RECOMMENDATION: Routine screening mammogram of both breasts in 1 year.
== END | disposition home or self-care (01) ==
LOC: RADMAMWWP 12:46
PROVIDERS: ATTEND Family Medicine
DX: Z12.31 Encounter for screening mammogram for malignant neoplasm of breast (principal)
CPT/HCPCS: 77063; 77067

== ENCOUNTER → 2020-04-19 | Outpatient (CLI) | payer MEDICARE ==
--- NOTE | 2020-04-19 17:27 | XR ---
EXAMINATION TYPE: XR KUB DATE OF EXAM: 04/19/2020 Comparison: None Clinical History: 70-year-old female R31.0 GROSS HEMATURIA Findings: Lung bases are clear. Supine imaging limited for assessment of free air. Cholecystectomy clips. No dilated small bowel. Scattered mild stool. Surgical clip noted within the pelvis. Round calcification in the left side of the pelvis probably represents a phlebolith. Partially visualized bilateral total hip replacements. Degenerative change mid and lower lumbar spine . Impression: A round 4 mm calcification within the left side of the pelvis probably represents a phlebolith. Corre late to exclude a distal ureteral calculus.
== END | disposition home or self-care (01) ==
LOC: RADXRMAIN 15:04
PROVIDERS: ATTEND Family Medicine
DX: R31.0 Gross hematuria (principal)
CPT/HCPCS: 74018

== ENCOUNTER 2020-05-15 15:01 | Inpatient (IN) | payer MEDICARE ==
--- NOTE | 2020-05-15 15:44 | ED ---
General Adult HPI - General Chief complaint: Fall Stated complaint: fall Time Seen by Provider: 05/15/20 15:26 Source: patient, EMS, RN notes reviewed Mode of arrival: EMS Limitations: no limitations - History of Present Illness Initial comments: Patient is a pleasant 70-year-old female presenting to the emergency Department with complaints of left hip pain. Patient was at physical therapy today when her leg gave out and she let fell and landed on her left hip. She does use a walker. Patient states her leg does frequently go out on her. Patient also states she was a little bit dizzy however that has resolved. Patient has chronic dizziness. Patient also chronic tremors. Discomfort is moderate to severe at this time. Discomfort does increase with movement. No head injury or loss of consciousness. No new area of weakness. - Related Data Home Medications Medication Instructions Recorded Confirmed Fluticasone Propionate [Flovent 1 puff INHALATION RT-DAILY PRN 10/02/13 05/15/20 Diskus] Levothyroxine Sodium [Synthroid] 150 mcg PO MOWEFR 10/02/13 05/15/20 Levothyroxine Sodium [Synthroid] 175 mcg PO SUTUTHSA 10/02/13 05/15/20 Montelukast [Singulair] 10 mg PO HS 10/02/13 05/15/20 Nitroglycerin Sl Tabs [Nitrostat] 0.4 mg SL Q5M PRN 10/02/13 05/15/20 Cyclobenzaprine [Flexeril] 10 mg PO BID 05/26/16 05/15/20 Apixaban [Eliquis] 2.5 mg PO BID 09/29/19 05/15/20 Aspirin [Adult Low Dose Aspirin EC] 81 mg PO DAILY 09/29/19 05/15/20 Dicyclomine [Bentyl] 20 mg PO DAILY 09/29/19 05/15/20 Multivit with Calcium,Iron,Min 1 tab PO DAILY 09/29/19 05/15/20 [Women's Multivitamin] Albuterol Nebulized [Ventolin 2.5 mg INHALATION RT-BID PRN 02/09/20 05/15/20 Nebulized] Gabapentin [Neurontin] 300 mg PO BID 02/09/20 05/15/20 Insulin Aspart [NovoLOG Flexpen] See Protocol SQ AC-TID 02/09/20 05/15/20 Potassium Chloride ER [K-Dur 20] 60 meq PO DAILY 02/09/20 05/15/20 Zinc 50 mg PO DAILY 02/09/20 05/15/20 glipiZIDE XL [Glucotrol XL] 2.5 mg PO DAILY 02/09/20 05/15/20 lisinopriL [Zestril] 2.5 mg PO DAILY 02/09/20 05/15/20 Acetaminophen-Codeine 300-30mg 1 tab PO TID PRN 05/15/20 05/15/20 [Tylenol w/codeine #3] Dicyclomine [Bentyl] 40 mg PO HS 05/15/20 05/15/20 Famotidine 40 mg PO BID 05/15/20 05/15/20 Loperamide HCl [Imodium A-D] 6 mg PO ONCE PRN 05/15/20 05/15/20 Metoclopramide [Reglan] 10 mg PO DAILY PRN 05/15/20 05/15/20 Potassium Chloride ER [K-Dur 20] 40 meq PO HS 05/15/20 05/15/20 Primidone [Mysoline] 600 mg PO DAILY 05/15/20 05/15/20 Tamsulosin HCl [Flomax] 0.4 mg PO DAILY 05/15/20 05/15/20 metFORMIN HCL [Glucophage] 500 mg PO PC-SUPPER 05/15/20 05/15/20 Allergies Allergy/AdvReac Type Severity Reaction Status Date / Time enoxaparin sodium Allergy Unknown RED LUMPS Verified 05/15/20 17:36 [From Lovenox] ON ABDOMEN AT INJECTION SITES erythromycin base Allergy Unknown Rash/Hives Verified 05/15/20 17:36 latex Allergy Unknown Itching Verified 05/15/20 17:36 morphine Allergy Rash/Hives Verified 05/15/20 17:36 Sulfa (Sulfonamide Allergy Anaphylaxis Verified 05/15/20 17:36 Antibiotics) tetracycline [Tetracycline] Allergy Rash/Hives Verified 05/15/20 17:36 adhesive AdvReac Rash/Hives Verified 05/15/20 17:36 Review of Systems ROS Statement: Those systems with pertinent positive or pertinent negative responses have been documented in the HPI. ROS Other: All systems not noted in ROS Statement are negative. Constitutional: Denies: fever Eyes: Denies: eye pain ENT: Denies: ear pain Respiratory: Denies: cough, dyspnea Cardiovascular: Denies: chest pain Endocrine: Denies: fatigue Gastrointestinal: Denies: abdominal pain Genitourinary: Denies: urgency Musculoskeletal: Reports: as per HPI. Denies: back pain Skin: Denies: rash Neurological: Reports: as per HPI. Denies: headache, weakness, confusion Past Medical History Past Medical History: Asthma, COPD, Diabetes Mellitus, Deep Vein Thrombosis (DVT), Eye Disorder, GERD/Reflux, Hypertension, Osteoarthritis (OA), Pneumonia, Skin Disorder, Sleep Apnea/CPAP/BIPAP, Thyroid Disorder Additional Past Medical History / Comment(s): Hx GLAUCOMA, TMJ, RENAL CALCULI, UTIs, DVT X 5 ( STATES CAUSED BY CONTROL PILLS AND HORMONES), USES BI-PAP MACHINE., CHER-AE HEIGHTS, HAND TREMORS, STATES DIABETES RESOLVED WITH WT LOSS- WATCHES DIET. History of Any Multi-Drug Resistant Organisms: None Reported Past Surgical History: Back Surgery, Bladder Surgery, Breast Surgery, Heart Catheterization, Hysterectomy, Joint Replacement, Orthopedic Surgery, Tonsillectomy Additional Past Surgical History / Comment(s): 04/17/16 arthrotomy removal olecranon spur and loose bodies R elbow. , RIGHT TOTAL HIP, LAPAROSCOPY, BREAST BIOPSY, JULIANNE CARPAL TUNNEL, JULIANNE KNEE REPLACEMENT, JULIANNE ROTATOR CUFF REPAIR, LEFT FOOT SURG. Past Anesthesia/Blood Transfusion Reactions: Postoperative Nausea & Vomiting (PONV) Past Psychological History: No Psychological Hx Reported Smoking Status: Never smoker Past Alcohol Use History: Rare Past Drug Use History: None Reported - Past Family History Mother Family Medical History: Hyperlipidemia, Hypertension Additional Family Medical History / Comment(s): Mother is 91 yrs old. Father Family Medical History: Osteoarthritis (OA) Sister(s) Family Medical History: Pulmonary Embolus General Exam Limitations: no limitations General appearance: alert, in no apparent distress Head exam: Present: atraumatic, normocephalic Eye exam: Present: normal appearance, PERRL, EOMI. Absent: nystagmus Neck exam: Present: normal inspection. Absent: tenderness Respiratory exam: Present: normal lung sounds bilaterally Cardiovascular Exam: Present: regular rate, normal rhythm GI/Abdominal exam: Present: soft. Absent: tenderness Extremities exam: Present: tenderness (Moderate tenderness right lateral and anterior hip.), other (Mild discomfort with passive range of motion. Moderate discomfort with active range of motion) Back exam: Absent: vertebral tenderness Neurological exam: Present: alert, CN II-XII intact. Absent: motor sensory deficit Psychiatric exam: Present: normal affect, normal mood Skin exam: Present: normal color Course Vital Signs 05/15/20 05/15/20 15:05 16:28 Temperature 98.0 F Pulse Rate 67 66 Respiratory 16 18 Rate Blood Pressure 137/66 137/85 O2 Sat by Pulse 100 100 Oximetry Medical Decision Making - Medical Decision Making Patient reevaluated and resting comfortably in bed. Patient try to get up twice to ambulate unsuccessfully. Patient is not comfortable with discharge home. Patient states her symptoms actually started several days ago and has fallen several times. Patient states she is not safe to be at home. Case was discussed with Dr. Cui, who will admit covered for Dr. Josy Vera. Patient did have a fall however does not meet trauma criteria. Patient is being admitted secondary to difficulty with ambulation, not secondary to traumatic injury. - Radiology Data Radiology results: image reviewed (X-ray left hip and pelvis reveals no acute process) Disposition Clinical Impression: Weakness, Ataxia Disposition: ADMITTED IP TO THIS HOSP Is patient prescribed a controlled substance at d/c from ED?: No Referrals: Josy Man MD [Primary Care Provider] - 1-2 days Decision Time: 18:14
[2020-05-15] MEDS: HYDROmorphone 0.5 MG/0.5 ML SYRINGE IVP STA ×2 (16:30→17:37)
--- NOTE | 2020-05-15 16:37 | XR ---
EXAMINATION TYPE: XR Hip LT and AP Pelvis DATE OF EXAM: 05/15/2020 COMPARISON: NONE HISTORY: Fall injury with pain in left hip pain TECHNIQUE: A single AP view of the pelvis is obtained. Two views of the left hip are obtained. FINDINGS: There is no acute fracture/dislocation evident in the pelvis. The sacroiliac joints appea r symmetric and felt within normal limits. Pubic symphysis is intact. Occasional scattered pelvic phl ebolith. Metallic hardware from right hip arthroplasty partially imaged. Surgical clip over the upper to mid pelvis. Two views of left hip show no acute fracture or dislocation. Osseous structures are demineralized whi ch is noted to lower radiographic sensitivity. Metallic hardware from total left hip arthroplasty is satisfactory in position. The overlying soft tissue is unremarkable. IMPRESSION: There is no acute fracture or dislocation in the pelvis or left hip.
[2020-05-15] MEDS ORDERED: HYDROmorphone 0.5 MG/0.5 ML SYRINGE IVP STA (17:18)
[2020-05-15] MEDS ORDERED: NALOXONE 0.4 MG/ML 1 ML VIAL IV PRN (18:15)
[2020-05-15] MEDS ORDERED: ACETAMINOPHEN TAB 325 MG TAB PO PRN (18:15)
[2020-05-15 19:00] LABS: ALT 15 U/L (4-34); AST 26 U/L (14-36); African American GFR (CKD) >90 (>60 ml/min/1.73 sqM); Albumin 3.9 g/dL (3.5-5.0); Alkaline Phosphatase 81 U/L (38-126); Anion Gap 4 mmol/L; Blood Urea Nitrogen 12 mg/dL (7-17); Calcium 9.1 mg/dL (8.4-10.2); Carbon Dioxide 28 mmol/L (22-30); Chloride 101 mmol/L (98-107); Glucose 106 mg/dL (74-99); Magnesium 1.8 mg/dL (1.6-2.3); Non-African American GFR(CKD) >90 (>60 ml/min/1.73 sqM); Potassium 4.7 mmol/L (3.5-5.1); Sodium 133 mmol/L (137-145); Total Bilirubin 0.5 mg/dL (0.2-1.3); Total Protein 6.4 g/dL (6.3-8.2)
[2020-05-15 19:19] LABS: Basophils % (A) 1 %; Eosinophils # (A) 0.1 k/uL (0-0.7); Eosinophils % (A) 2 %; HCT 38.9 % (34.0-46.0); HGB 13.3 gm/dL (11.4-16.0); Lymphocytes # (A) 2.1 k/uL (1.0-4.8); Lymphocytes % (A) 41 %; MCH 31.2 pg (25.0-35.0); MCHC 34.1 g/dL (31.0-37.0); MCV 91.4 fL (80.0-100.0); Mean Platelet Volume 6.5; Monocytes # (A) 0.4 k/uL (0-1.0); Monocytes % (A) 7 %; Neutrophils # (A) 2.4 k/uL (1.3-7.7); Neutrophils % (A) 47 %; Platelet Count 195 k/uL (150-450); RBC 4.26 m/uL (3.80-5.40); RDW 12.1 % (11.5-15.5); WBC 5.1 k/uL (3.8-10.6)
[2020-05-15] MEDS: HYDROmorphone 0.5 MG/0.5 ML SYRINGE IVP PRN ×2 (19:26→22:42)
[2020-05-15] MEDS: SODIUM CHLORIDE 0.9% 1,000 ML IV SCH (19:30)
[2020-05-15] MEDS ORDERED: NITROGLYCERIN SL TABS 0.4 MG TAB SUBLINGUAL PRN (21:44)
[2020-05-15] MEDS ORDERED: LOPERAMIDE 2 MG CAP PO PRN (21:44)
[2020-05-15] MEDS ORDERED: ALBUTEROL NEBULIZED 2.5 MG/3 ML INHALATION PRN (21:44)
[2020-05-15] MEDS ORDERED: METOCLOPRAMIDE 10 MG TAB PO PRN (21:44)
[2020-05-15] MEDS ORDERED: FLUTICASONE 44 MCG INHALER INHALATION PRN (21:44)
[2020-05-15] MEDS ORDERED: TEMAZEPAM 15 MG CAP PO PRN (21:49)
[2020-05-15] MEDS ORDERED: ALPRAZolam 0.25 MG TAB PO PRN (21:50)
[2020-05-15 21:55] LABS: Glucose,Whole Blood 132 mg/dL (75-99)
[2020-05-16] MEDS: HYDROmorphone 0.5 MG/0.5 ML SYRINGE IVP PRN ×5 (02:25→16:35)
[2020-05-16] MEDS: LEVOTHYROXINE 50 MCG TAB PO SCH (05:15)
[2020-05-16 07:00] LABS: Glucose,Whole Blood 106 mg/dL (75-99)
[2020-05-16] MEDS: PANTOPRAZOLE 40 MG/10 ML VIAL IVP SCH (08:06)
[2020-05-16] MEDS: PRIMIDONE 50 MG TAB PO SCH (08:06)
[2020-05-16] MEDS: FAMOTIDINE 20 MG TAB PO SCH ×2 (08:07→20:24)
[2020-05-16] MEDS: MULTIVITAMINS, THERA 1 EACH TAB PO SCH (08:07)
[2020-05-16] MEDS: CYCLOBENZAPRINE 10 MG TAB PO SCH ×2 (08:07→20:23)
[2020-05-16] MEDS: ASPIRIN 81 MG PO SCH (08:07)
[2020-05-16] MEDS: TAMSULOSIN 0.4 MG CAP.ER.24H PO SCH (08:07)
[2020-05-16] MEDS: POTASSIUM CHLORIDE ER 20 MEQ TAB.ER PO SCH ×2 (08:08→20:24)
[2020-05-16] MEDS: DICYCLOMINE 10 MG CAP PO SCH ×2 (08:08→20:23)
[2020-05-16] MEDS: GABAPENTIN 300 MG CAP PO SCH ×2 (08:08→20:23)
[2020-05-16] MEDS: APIXABAN 2.5 MG TABLET PO SCH ×2 (08:08→20:24)
[2020-05-16] MEDS ORDERED: NON FORMULARY DRUG (Zinc [Zinc] 50 MG Tablet) PO SCH (09:00)
[2020-05-16 11:31] LABS: Glucose,Whole Blood 96 mg/dL (75-99)
[2020-05-16 17:25] LABS: Glucose,Whole Blood 152 mg/dL (75-99)
[2020-05-16] MEDS: SODIUM CHLORIDE 0.9% 1,000 ML IV SCH ×2 (18:22→18:31)
[2020-05-16] MEDS: metFORMIN 500 MG TAB PO SCH (18:29)
[2020-05-16] MEDS: MONTELUKAST 10 MG TAB PO SCH (20:24)
--- NOTE | 2020-05-16 22:44 | P.HPIM ---
History of Present Illness H&P Date: 05/16/20 Chief Complaint: fall Patient is a 70-year-old female with a known history of asthma,/COPD, diabetes type 2, history of DVT x5 currently anticoagulation with Eliquis, hypertension, osteoarthritis, GERD and obstructive sleep apnea and history of total hip replacement in September 2019 and is on follow-up with PT OT on and off. Patient was at physical therapy when her left leg gave out and fell and landed on her left hip. Patient does use walker usually. Patient states that she has been having left leg weakness x4 days. Patient states that she felt dizzy. She has been rashid ving chronic problems with dizziness and chronic tremors. Patient landed on her left hip. Patient thinks she passed out for about 1 to 2 minutes. Denied any head injury. Denied any abdominal pain. No dysuria or hematuria. Denies any recent illnesses or travel. Patient is Flexeril and Tylenol 3 for pain at home. Laboratory data reviewed. X-ray of the hip and pelvis showed no acute fracture or dislocation in the pelvis or left hip. Review of Systems Constitutional: Patient denies any fever or chills . No generalized weakness or weight loss. Abdomen: Patient denied nausea vomiting and diarrhea and abdominal pain. Cardiovascular: Patient denies any chest pain or short of breath no palpitations. Respiratory: patient denied any cough or sputum production. No shortness of breath Neurologic: Patient denied any numbness or tingling headache. Musculoskeletal: Patient denies any complaints of joint swelling or deformity.left leg weakness Skin: Negative Psychiatric: Negative Endocrine: No heat or cold intolerance. No recent weight gain. Genitourinary: No dysuria or hematuria. All other 14 point ROS negative except the above Past Medical History Past Medical History: Asthma, COPD, Diabetes Mellitus, Deep Vein Thrombosis (DVT), Eye Disorder, GERD/Reflux, Hypertension, Osteoarthritis (OA), Pneumonia, Skin Disorder, Sleep Apnea/CPAP/BIPAP, Thyroid Disorder Additional Past Medical History / Comment(s): Hx GLAUCOMA, TMJ, RENAL CALCULI, UTIs, DVT X 5 ( STATES CAUSED BY CONTROL PILLS AND HORMONES), USES BI-PAP MACHINE., [place], HAND TREMORS, STATES DIABETES RESOLVED WITH WT LOSS- WATCHES DIET. History of Any Multi-Drug Resistant Organisms: None Reported Past Surgical History: Back Surgery, Bladder Surgery, Breast Surgery, Heart Ca theterization, Hysterectomy, Joint Replacement, Orthopedic Surgery, Tonsillectomy Additional Past Surgical History / Comment(s): 04/17/16 arthrotomy removal olecranon spur and loose bodies R elbow. , RIGHT TOTAL HIP, LAPAROSCOPY, BREAST BIOPSY, JULIANNE CARPAL TUNNEL, JULIANNE KNEE REPLACEMENT, JULIANNE ROTATOR CUFF REPAIR, LEFT FOOT SURG. Past Anesthesia/Blood Transfusion Reactions: Postoperative Nausea & Vomiting (PONV) Past Psychological History: No Psychological Hx Reported Additional Psychological History / Comment(s): Pt lives alone. Using walker., uses bus for transportation Smoking Status: Never smoker Past Alcohol Use History: Rare Past Drug Use History: None Reported - Past Family History Mother Family Medical History: Hyperlipidemia, Hypertension Additional Family Medical History / Comment(s): Mother is 91 yrs old. Father Family Medical History: Osteoarthritis (OA) Sister(s) Family Medical History: Pulmonary Embolus Medications and Allergies Home Medications Medication Instructions Recorded Confirmed Type Fluticasone Propionate [Flovent 1 puff INHALATION RT-DAILY PRN 10/02/13 05/15/20 History Diskus] Levothyroxine Sodium [Synthroid] 150 mcg PO MOWEFR 10/02/13 05/15/20 History Levothyroxine Sodium [Synthroid] 175 mcg PO SUTUTHSA 10/02/13 05/15/20 History Montelukast [Singulair] 10 mg PO HS 10/02/13 05/15/20 History Nitroglycerin Sl Tabs [Nitrostat] 0.4 mg SL Q5M PRN 10/02/13 05/15/20 History Cyclobenzaprine [Flexeril] 10 mg PO BID 05/26/16 05/15/20 History Apixaban [Eliquis] 2.5 mg PO BID 09/29/19 05/15/20 History Aspirin [Adult Low Dose Aspirin EC] 81 mg PO DAILY 09/29/19 05/15/20 History Dicyclomine [Bentyl] 20 mg PO DAILY 09/29/19 05/15/20 History Multivit with Calcium,Iron,Min 1 tab PO DAILY 09/29/19 05/15/20 History [Women's Multivitamin] Albuterol Nebulized [Ventolin 2.5 mg INHALATION RT-BID PRN 02/09/20 05/15/20 History Nebulized] Gabapentin [Neurontin] 300 mg PO BID 02/09/20 05/15/20 History Insulin Aspart [NovoLOG Flexpen] See Protocol SQ AC-TID 02/09/20 05/15/20 History Potassium Chloride ER [K-Dur 20] 60 meq PO DAILY 02/09/20 05/15/20 History Zinc 50 mg PO DAILY 02/09/20 05/15/20 History glipiZIDE XL [Glucotrol XL] 2.5 mg PO DAILY 02/09/20 05/15/20 History lisinopriL [Zestril] 2.5 mg PO DAILY 02/09/20 05/15/20 History Acetaminophen-Codeine 300-30mg 1 tab PO TID PRN 05/15/20 05/15/20 History [Tylenol w/codeine #3] Dicyclomine [Bentyl] 40 mg PO HS 05/15/20 05/15/20 History Famotidine 40 mg PO BID 05/15/20 05/15/20 History Loperamide HCl [Imodium A-D] 6 mg PO ONCE PRN 05/15/20 05/15/20 History Metoclopramide [Reglan] 10 mg PO DAILY PRN 05/15/20 05/15/20 History Potassium Chloride ER [K-Dur 20] 40 meq PO HS 05/15/20 05/15/20 History Primidone [Mysoline] 600 mg PO DAILY 05/15/20 05/15/20 History Tamsulosin HCl [Flomax] 0.4 mg PO DAILY 05/15/20 05/15/20 History metFORMIN HCL [Glucophage] 500 mg PO PC-SUPPER 05/15/20 05/15/20 History Allergies Allergy/AdvReac Type Severity Reaction Status Date / Time enoxaparin sodium Allergy Unknown RED LUMPS Verified 05/15/20 17:36 [From Lovenox] ON ABDOMEN AT INJECTION SITES erythromycin base Allergy Unknown Rash/Hives Verified 05/15/20 17:36 latex Allergy Unknown Itching Verified 05/15/20 17:36 morphine Allergy Rash/Hives Verified 05/15/20 17:36 Sulfa (Sulfonamide Allergy Anaphylaxis Verified 05/15/20 17:36 Antibiotics) tetracycline [Tetracycline] Allergy Rash/Hives Verified 05/15/20 17:36 adhesive AdvReac Rash/Hives Verified 05/15/20 17:36 Physical Exam Vitals: Vital Signs Temp Pulse Pulse Resp BP BP Pulse Ox 05/16/20 07:00 97.9 F 57 L 16 122/72 97 05/16/20 02:00 97.6 F 59 L 16 115/68 100 05/15/20 21:22 98.4 F 68 17 150/82 98 05/15/20 19:30 66 16 136/66 96 05/15/20 16:28 66 18 137/85 100 05/15/20 15:05 98.0 F 67 16 137/66 100 Intake and Output 05/15/20 05/16/20 05/16/20 22:59 06:59 14:59 Intake Total 540 Balance 540 Intake: Oral 540 Other: Voiding Method Toilet # Voids 1 Weight 77.111 kg PHYSICAL EXAMINATION: Patient is lying in the bed comfortably, no acute distress, awake alert and oriented.. HEENT: Normocephalic. Neck is supple. Pupils reactive. Nostrils clear. Oral cavity is moist. Ears reveal no drainage. Neck reveals no JVD, carotid bruits, or thyromegaly. CHEST EXAMINATION: Trachea is central. Symmetrical expansion. Lung hunter clear to auscultation and percussion. CARDIAC: Normal S1, S2 with no gallops. No murmurs ABDOMEN: Soft. Bowel sounds normal. No organomegaly. No abdominal bruits. Extremities: reveal no edema. No clubbing or cyanosis Neurologically awake, alert, oriented x3 with well-coordinated movements. No focal deficits noted. Left lower extremity mild weakness compared to right. Motor 4 out of 5. Skin: No rash or skin lesions. Psychiatric: Coperative. Nonsuicidal Musculoskeletal: No joint swelling or deformity. Results CBC & Chem 7: 05/15/20 18:41 05/15/20 18:41 Labs: Abnormal Lab Results - Last 24 Hours (Table) 05/15/20 05/15/20 05/16/20 Range/Units 18:41 21:54 06:57 Sodium 133 L (137-145) mmol/L Glucose 106 H (74-99) mg/dL POC Glucose (mg/dL) 132 H 106 H (75-99) mg/dL Thrombosis Risk Factor Assmnt - DVT/VTE Prophylaxis DVT/VTE Prophylaxis: Pharmacologic Prophylaxis ordered - Choose All That Apply Each Factor Represents 1 point: Abnormal pulmonary function (COPD), Obesity (BMI >25) Each Risk Factor Represents 2 Points: Age 61-74 years Thrombosis Risk Factor Assessment Total Risk Factor Score: 4 Thrombosis Risk Factor Assessment Level: Moderate Risk Assessment and Plan Assessment: Status post fall and landed on her left hip due to left leg weakness due to deconditioning. Left leg weakness with chronic dizziness Recent left hip arthroplasty Asthma/COPD not in exacerbation History of DVT x5 currently on long-term anticoagulation GERD Hypertension Osteoarthritis Obstructive sleep apnea Hypothyroidism History of back surgery DVT prophylaxis patient is already on Eliquis Plan: Patient will be continued pain management and PT OT. Orthopedic surgery was consulted. Currently denied any complaints of dizziness. will continue with home medications and follow-up. Patient may need rehab transfer once her pain is better controlled. Prognosis guarded with multiple medical problems and com orbid conditions. Time with Patient: Greater than 30
[2020-05-17] MEDS: LEVOTHYROXINE 50 MCG TAB PO SCH (06:01)
[2020-05-17 07:56] LABS: Glucose,Whole Blood 98 mg/dL (75-99)
[2020-05-17] MEDS: GABAPENTIN 300 MG CAP PO SCH ×2 (08:23→20:48)
[2020-05-17] MEDS: MULTIVITAMINS, THERA 1 EACH TAB PO SCH (08:23)
[2020-05-17] MEDS: PANTOPRAZOLE 40 MG/10 ML VIAL IVP SCH (08:23)
[2020-05-17] MEDS: PRIMIDONE 50 MG TAB PO SCH (08:23)
[2020-05-17] MEDS: APIXABAN 2.5 MG TABLET PO SCH ×2 (08:24→22:22)
[2020-05-17] MEDS: FAMOTIDINE 20 MG TAB PO SCH ×2 (08:24→20:48)
[2020-05-17] MEDS: CYCLOBENZAPRINE 10 MG TAB PO SCH ×2 (08:24→20:47)
[2020-05-17] MEDS: ASPIRIN 81 MG PO SCH (08:24)
[2020-05-17] MEDS: POTASSIUM CHLORIDE ER 20 MEQ TAB.ER PO SCH ×2 (08:24→20:48)
[2020-05-17] MEDS: DICYCLOMINE 10 MG CAP PO SCH ×2 (08:24→20:47)
[2020-05-17] MEDS: TAMSULOSIN 0.4 MG CAP.ER.24H PO SCH (08:24)
[2020-05-17] MEDS: HYDROmorphone 0.5 MG/0.5 ML SYRINGE IVP PRN ×2 (08:47→20:49)
--- NOTE | 2020-05-17 09:15 | P.CNOR ---
History of Present Illness - [facility] Consult date: 05/17/20 Consult reason: joint pain (Left hip pain, Low back pain) History of present illness: Patient is a pleasant 70-year-old female who became dizzy while in our physical therapy department on 05/15/2020 and fell, landing on her left side. She has history of bilateral total hip arthroplasty as well as ongoing low back pain and lumbar radiculopathy. She does use a walker. Patient states her leg does frequently go out on her. Patient also states she was a little bit dizzy however that has resolved. Patient has chronic dizziness. Patient also chronic tremors. No head injury or loss of consciousness. No new area of weakness. She has had multiple falls in the past several months. She is admitted to internal medicine for evaluation of her dizziness and weakness. We are consulted for orthopedic evaluation of her left hip pain. Past Medical History Past Medical History: Asthma, COPD, Diabetes Mellitus, Deep Vein Thrombosis (DVT), Eye Disorder, GERD/Reflux, Hypertension, Osteoarthritis (OA), Pneumonia, Skin Disorder, Sleep Apnea/CPAP/BIPAP, Thyroid Disorder Additional Past Medical History / Comment(s): Hx GLAUCOMA, TMJ, RENAL CALCULI, UTIs, DVT X 5 ( STATES CAUSED BY CONTROL PILLS AND HORMONES), USES BI-PAP MACHINE., [place], HAND TREMORS, STATES DIABETES RESOLVED WITH WT LOSS- WATCHES DIET. History of Any Multi-Drug Resistant Organisms: None Reported Past Surgical History: Back Surgery, Bladder Surgery, Breast Surgery, Heart Catheterization, Hysterectomy, Joint Replacement, Orthopedic Surgery, Tonsillectomy Additional Past Surgical History / Comment(s): 04/17/16 arthrotomy removal olecranon spur and loose bodies R elbow. , RIGHT TOTAL HIP, LAPAROSCOPY, BREAST BIOPSY, JULIANNE CARPAL TUNNEL, JULIANNE KNEE REPLACEMENT, JULIANNE ROTATOR CUFF REPAIR, LEFT FOOT SURG. Past Anesthesia/Blood Transfusion Reactions: Postoperative Nausea & Vomiting (PONV) Past Psychological History: No Psychological Hx Reported Additional Psychological History / Comment(s): Pt lives alone. Using walker., uses bus for transportation Smoking Status: Never smoker Past Alcohol Use History: Rare Past Drug Use History: None Reported - Past Family History Mother Family Medical History: Hyperlipidemia, Hypertension Additional Family Medical History / Comment(s): Mother is 91 yrs old. Father Family Medical History: Osteoarthritis (OA) Sister(s) Family Medical History: Pulmonary Embolus Medications and Allergies Home Medications Medication Instructions Recorded Confirmed Type Fluticasone Propionate [Flovent 1 puff INHALATION RT-DAILY PRN 10/02/13 05/15/20 History Diskus] Levothyroxine Sodium [Synthroid] 150 mcg PO MOWEFR 10/02/13 05/15/20 History Levothyroxine Sodium [Synthroid] 175 mcg PO SUTUTHSA 10/02/13 05/15/20 History Montelukast [Singulair] 10 mg PO HS 10/02/13 05/15/20 History Nitroglycerin Sl Tabs [Nitrostat] 0.4 mg SL Q5M PRN 10/02/13 05/15/20 History Cyclobenzaprine [Flexeril] 10 mg PO BID 05/26/16 05/15/20 History Apixaban [Eliquis] 2.5 mg PO BID 09/29/19 05/15/20 History Aspirin [Adult Low Dose Aspirin EC] 81 mg PO DAILY 09/29/19 05/15/20 History Dicyclomine [Bentyl] 20 mg PO DAILY 09/29/19 05/15/20 History Multivit with Calcium,Iron,Min 1 tab PO DAILY 09/29/19 05/15/20 History [Women's Multivitamin] Albuterol Nebulized [Ventolin 2.5 mg INHALATION RT-BID PRN 02/09/20 05/15/20 History Nebulized] Gabapentin [Neurontin] 300 mg PO BID 02/09/20 05/15/20 History Insulin Aspart [NovoLOG Flexpen] See Protocol SQ AC-TID 02/09/20 05/15/20 History Potassium Chloride ER [K-Dur 20] 60 meq PO DAILY 02/09/20 05/15/20 History Zinc 50 mg PO DAILY 02/09/20 05/15/20 History glipiZIDE XL [Glucotrol XL] 2.5 mg PO DAILY 02/09/20 05/15/20 History lisinopriL [Zestril] 2.5 mg PO DAILY 02/09/20 05/15/20 History Acetaminophen-Codeine 300-30mg 1 tab PO TID PRN 05/15/20 05/15/20 History [Tylenol w/codeine #3] Dicyclomine [Bentyl] 40 mg PO HS 05/15/20 05/15/20 History Famotidine 40 mg PO BID 05/15/20 05/15/20 History Loperamide HCl [Imodium A-D] 6 mg PO ONCE PRN 05/15/20 05/15/20 History Metoclopramide [Reglan] 10 mg PO DAILY PRN 05/15/20 05/15/20 History Potassium Chloride ER [K-Dur 20] 40 meq PO HS 05/15/20 05/15/20 History Primidone [Mysoline] 600 mg PO DAILY 05/15/20 05/15/20 History Tamsulosin HCl [Flomax] 0.4 mg PO DAILY 05/15/20 05/15/20 History metFORMIN HCL [Glucophage] 500 mg PO PC-SUPPER 05/15/20 05/15/20 History Allergies Allergy/AdvReac Type Severity Reaction Status Date / Time enoxaparin sodium Allergy Unknown RED LUMPS Verified 05/15/20 17:36 [From Lovenox] ON ABDOMEN AT INJECTION SITES erythromycin base Allergy Unknown Rash/Hives Verified 05/15/20 17:36 latex Allergy Unknown Itching Verified 05/15/20 17:36 morphine Allergy Rash/Hives Verified 05/15/20 17:36 Sulfa (Sulfonamide Allergy Anaphylaxis Verified 05/15/20 17:36 Antibiotics) tetracycline [Tetracycline] Allergy Rash/Hives Verified 05/15/20 17:36 adhesive AdvReac Rash/Hives Verified 05/15/20 17:36 Physical Examination This is a pleasant 70-year-old female in no acute distress. She is alert and oriented at this time. Exam of the head neck reveal no obvious deformity. She was slow to awaken today and did not open her eyes for several minutes during the exam. She eventually did wake up enough to have a conversation and did open her eyes. Exam of her upper extremities is unremarkable. She has full shoulder, elbow, wrist and finger motion bilaterally. Neurovascular status to the upper extremities is intact. Exam of the thoracic and lumbar spine reveal no obvious deformity. She has tenderness with palpation about the lower lumbar spine and left paraspinal musculature into the buttock. Exam of the lower extremities reveals no obvious deformity. She can lift each leg off the bed independently. There is no pain with logroll or extreme internal and external rotation of the hips. She does have pain in the left buttock with straight leg raise. She has full foot and ankle motion bilaterally. Neurovascular status to the lower extremities is intact. Results X-rays of the pelvis and left hip reveal bilateral hip components in good position with no evidence of subsidence or lucency. No fracture identified. - Labs Labs: Abnormal Lab Results - Last 24 Hours (Table) 05/16/20 Range/Units 17:21 POC Glucose (mg/dL) 152 H (75-99) mg/dL H & H 05/15/20 Range/Units 18:41 Hgb 13.3 (11.4-16.0) gm/dL Hct 38.9 (34.0-46.0) % Result Diagrams: 05/15/20 18:41 05/15/20 18:41 Assessment and Plan (1) Lumbar radiculopathy Current Visit: Yes Status: Acute Code(s): M54.16 - RADICULOPATHY, LUMBAR REGION SNOMED Code(s): 909809792 (2) Ataxia Current Visit: Yes Status: Acute Code(s): R27.0 - ATAXIA, UNSPECIFIED SNOMED Code(s): 99218709 (3) Diabetes Current Visit: No Status: Chronic Code(s): E11.9 - TYPE 2 DIABETES MELLITUS WITHOUT COMPLICATIONS SNOMED Code(s): 42557386 (4) S/P total hip arthroplasty Current Visit: No Status: Acute Code(s): Z96.649 - PRESENCE OF UNSPECIFIED ARTIFICIAL HIP JOINT SNOMED Code(s): 564576135 (5) Weakness Current Visit: Yes Status: Acute Code(s): R53.1 - WEAKNESS SNOMED Code(s): 91213964 Plan: The clinical and neck trephined are discussed with the patient. I have reviewed the case with Dr. Kim. I will order physical therapy and occupational therapy for evaluation and treatment. She may possibly require inpatient stay at rehab. I will order Solumedrol 60mg q8h X3 doses. We will continue to follow.
[2020-05-17] MEDS: methylPREDNISolone SOD SUCCI 125 MG/2 ML VIAL IV SCH ×2 (10:13→16:44)
[2020-05-17 12:48] LABS: Glucose,Whole Blood 125 mg/dL (75-99)
[2020-05-17] MEDS: HYDROcodone/APAP 5-325MG 1 EACH TAB PO PRN (15:00)
[2020-05-17 18:25] LABS: Glucose,Whole Blood 166 mg/dL (75-99)
[2020-05-17] MEDS: metFORMIN 500 MG TAB PO SCH (18:44)
[2020-05-17 19:55] LABS: Glucose,Whole Blood 158 mg/dL (75-99)
[2020-05-17] MEDS: MONTELUKAST 10 MG TAB PO SCH (20:48)
--- NOTE | 2020-05-17 23:20 | MR ---
EXAMINATION TYPE: MR lumbar spine wo con DATE OF EXAM: 05/17/2020 COMPARISON: 12/18/2014 HISTORY: Lumbar radiculopathy, weakness Multiplanar multiecho imaging of the lumbar spine was performed without contrast. There is moderate narrowing of the L4-5 disc space. There is a 4 mm anterior subluxation of L4 in rel ation L5. There is hypertrophic facet arthropathy and minimal posterior disc bulging at L4-5 with res ultant mild spinal stenosis. Stenosis similar to old exam. There is no compression fracture. I see no focal bone destruction. There is coarse trabeculae in the anterior aspect L4 vertebral body consistent with hemangioma unchanged. The sacroiliac joints appear intact. There is mild posterior di sc bulging at L2-3 and L3-4 with minimal encroachment on the spinal canal. This appears similar to ol d exam. There is lateral recess stenosis due to facet arthropathy at L3-4. IMPRESSION: Degenerative first-degree L4-5 spondylolisthesis unchanged. Spinal stenosis at L4-5 unchanged. No fra cture. Mild posterior disc herniations at L2-3 and L3-4 unchanged.
[2020-05-18] MEDS: methylPREDNISolone SOD SUCCI 125 MG/2 ML VIAL IV SCH (00:47)
[2020-05-18] MEDS: LEVOTHYROXINE 50 MCG TAB PO SCH (06:15)
[2020-05-18] MEDS: HYDROmorphone 0.5 MG/0.5 ML SYRINGE IVP PRN ×4 (06:15→21:30)
[2020-05-18 07:35] LABS: Glucose,Whole Blood 144 mg/dL (75-99)
[2020-05-18 08:49] LABS: Basophils # (A) 0.01 X 10*3/uL (0.00-0.10); Basophils % (A) 0.2 %; Eosinophils # (A) 0 X 10*3/uL (0.04-0.35); Eosinophils % (A) 0 %; HCT 40.1 % (37.2-46.3); HGB 13.7 g/dL (12.0-15.0); Lymphocytes # (A) 1.04 X 10*3/uL (0.90-5.00); Lymphocytes % (A) 15.6 %; MCH 30.6 pg (27.0-32.0); MCHC 34.2 g/dL (32.0-37.0); MCV 89.7 fL (80.0-97.0); Mean Platelet Volume 8.6 fL (9.5-12.2); Monocytes # (A) 0.09 X 10*3/uL (0.20-1.00); Monocytes % (A) 1.4 %; Neutrophils % (A) 82.6 %; Platelet Count 209 X 10*3/uL (140-440); RBC 4.47 X 10*6/uL (4.10-5.20); RDW 11.5 % (11.5-14.5); WBC 6.65 X 10*3/uL (4.50-10.00)
[2020-05-18] MEDS: CYCLOBENZAPRINE 10 MG TAB PO SCH ×2 (08:55→21:29)
[2020-05-18] MEDS: DICYCLOMINE 10 MG CAP PO SCH ×2 (08:56→21:29)
[2020-05-18] MEDS: ASPIRIN 81 MG PO SCH (08:56)
[2020-05-18] MEDS: MULTIVITAMINS, THERA 1 EACH TAB PO SCH (08:56)
[2020-05-18] MEDS: GABAPENTIN 300 MG CAP PO SCH ×2 (08:56→21:29)
[2020-05-18] MEDS: TAMSULOSIN 0.4 MG CAP.ER.24H PO SCH (08:56)
[2020-05-18] MEDS: PRIMIDONE 50 MG TAB PO SCH (08:57)
[2020-05-18] MEDS: POTASSIUM CHLORIDE ER 20 MEQ TAB.ER PO SCH ×2 (08:57→21:29)
[2020-05-18] MEDS: PANTOPRAZOLE 40 MG/10 ML VIAL IVP SCH (08:57)
[2020-05-18] MEDS: FAMOTIDINE 20 MG TAB PO SCH ×2 (08:57→21:29)
[2020-05-18] MEDS: APIXABAN 2.5 MG TABLET PO SCH ×2 (09:25→21:28)
[2020-05-18 09:27] LABS: Anion Gap 11.6 mmol/L (4.00-12.00); Calcium 9.6 mg/dL (8.7-10.3); Carbon Dioxide 24.4 mmol/L (21.6-31.8); Non-African American GFR(CKD) 74.2 (60.0-200.0); Potassium 4.2 mmol/L (3.5-5.5)
--- NOTE | 2020-05-18 11:20 | P.PN ---
Progress Note - Text Progress Note Date: 05/18/20 Orthopedics: History of present illness: Patient is a pleasant 70-year-old female seen and examined at the bedside for follow up evaluation for her left hip pain. She's had an MRI of the lumbar spine performed. Patient previously had a left total hip arthroplasty performed in [place] [address] Kim. Recently she felt dizzy while working through physical therapy and fell on 05/15/2020 landing on her left side. Her left- sided hip pain has been worsens that time. Her hardware at her left hip remains in good alignment and position. Since her admittance to the hospital her pain has not significantly change but been controlled with medications. She has not noticed significant improvement with Solu-Medrol. Her pain is being controlled with Dilaudid and [place] as prescribed as needed. Patient states she does have pain that radiates over the left hip. She has difficulty with performing hip flexion on the left. She has a history of previous surgical intervention in her lumbar spine performed by Dr. Mahajan and is known have chronic low back pain. She has previously worked through pain management both at [facility] and at [facility]. Consultation has been placed with pain management who is not available over the weekend. Patient is admitted to medicine continue to see the patient for her other medical diagnoses. Patient's Eliquis has been placed on hold in anticipation for possible injection with pain management early next week. She continues to take aspirin 81 mg by mouth daily. She has been able to work with physical therapy family to the restroom. She has difficulty ambulating the halls. She denies any right lower extremity weakness or radiculopathy. She has been using a walker to aid in ambulation. Patient may need discharge to rehabilitation facility at the time of discharge. Physical exam: Patient is awake, alert, and oriented 3 Vital signs stable Good chest excursion with deep inspiration and expiration Examination of lumbar spine reveals skin is intact with no abrasions, lacerations, or bruises; no erythema, purulence or signs of infection Evidence of a well-healed incision along the midline of the mid to upper lumbar spine Dorsiflexion, plantarflexion, and extensor hallucis longus positive sustained bilaterally Patient is able to lift the right lower extremity off the independently without difficulty Patient is unable to lift the left lower extremity off the bed independently Patellar reflexes 0/4 bilaterally Negative Lasegue's test bilaterally Evidence of well-healed incisions over the anterior bilateral knees No signs or symptoms of DVT; no calf pain No pain with internal and external rotation of the hips bilaterally Neurovascularly intact Pertinent studies: MRI of the lumbar spine taken on 05/17/2020: L2-3 posterior disc bulge; L3-4 disc protrusion and facet arthropathy resulting in moderate central canal stenosis and left neural foraminal stenosis; L4-5 degenerative disc disease, spondylolisthesis, disc protrusion, and facet arthropathy resulting in moderate central canal stenosis and bilateral neural foraminal narrowing; No evidence of acute body compression fracture; Imaging appears fairly stable as compared to previous imaging taken on 12/18/2014 Assessment: L3-4 and L4-5 spinal canal stenosis L4-5 spondylolisthesis and degenerative disc disease Lumbar facet arthropathy Left lower extremity weakness with hip flexion Chronic low back pain Left lower extremity radiculopathy History of lumbar surgery History of left total hip arthroplasty performed in September 2019 History of bilateral total knee arthroplasty Unsteady gait Diabetes mellitus COPD History of DVT Current anticoagulation use with Eliquis Hypertension Plan: 1. Patient recently underwent a an MRI of the lumbar spine which does show significant degenerative changes at L3-4 and L4-5 which have remained stable as compared to previous imaging from 12/18/2014. Patient has been experiencing worsening left lower extremity leg pain. She also has weakness with performing hip flexion on the left. Her total hip arthroplasty hardware remains in good alignment and good position and her left hip. Her symptoms may be stemming more from her lumbar spine. Consultation has been placed with pain management who is not available over the weekend. Hopefully pain management will be able to see and assess the patient this coming 05/20/2020. We are not currently planning for any acute surgical intervention in regards to her lumbar spine. Patient does not currently wish to have any further surgical intervention at her lumbar spine. We did discuss her Eliquis anticoagulation is currently on hold. We did discuss she may have one dose today but will plan to hold it starting tomorrow, 05/19/2020, in anticipation for possible injection this coming 05/21/2020. She may continue with aspirin 81 mg. It was discussed with nursing that her anticoagulation may be modified per recommendations by medicine. Patient may continue pain control with IV Dilaudid and oral [place] as described as needed for control her symptoms. Patient is encouraged to continue working with physical therapy and using a walker to aid in ambulation. 2. Patient will continue be seen in exam by medicine for other medical diagnoses 3. Patient may need discharge to a rehabilitation facility at the time of discharge 4. Patient currently waiting for consultation with pain management to discuss further treatment options including possibility of injections
[2020-05-18 12:22] LABS: Glucose,Whole Blood 201 mg/dL (75-99)
[2020-05-18 17:18] LABS: Glucose,Whole Blood 100 mg/dL (75-99)
[2020-05-18] MEDS: metFORMIN 500 MG TAB PO SCH (18:03)
[2020-05-18 21:19] LABS: Glucose,Whole Blood 142 mg/dL (75-99)
[2020-05-18] MEDS: MONTELUKAST 10 MG TAB PO SCH (21:29)
[2020-05-18] MEDS: SODIUM CHLORIDE 0.9% 1,000 ML IV SCH (22:55)
[2020-05-19] MEDS: LEVOTHYROXINE 50 MCG TAB PO SCH (05:55)
[2020-05-19] MEDS: HYDROmorphone 0.5 MG/0.5 ML SYRINGE IVP PRN ×3 (06:37→20:01)
[2020-05-19 07:51] LABS: Glucose,Whole Blood 85 mg/dL (75-99)
[2020-05-19] MEDS: PRIMIDONE 50 MG TAB PO SCH (09:11)
[2020-05-19] MEDS: GABAPENTIN 300 MG CAP PO SCH ×2 (09:12→20:00)
[2020-05-19] MEDS: POTASSIUM CHLORIDE ER 20 MEQ TAB.ER PO SCH ×2 (09:12→20:01)
[2020-05-19] MEDS: MULTIVITAMINS, THERA 1 EACH TAB PO SCH (09:12)
[2020-05-19] MEDS: DICYCLOMINE 10 MG CAP PO SCH ×2 (09:12→20:00)
[2020-05-19] MEDS: FAMOTIDINE 20 MG TAB PO SCH ×2 (09:12→20:00)
[2020-05-19] MEDS: PANTOPRAZOLE 40 MG TABLET PO SCH (09:12)
[2020-05-19] MEDS: ASPIRIN 81 MG PO SCH (09:12)
[2020-05-19] MEDS: CYCLOBENZAPRINE 10 MG TAB PO SCH ×2 (09:12→20:00)
[2020-05-19] MEDS: TAMSULOSIN 0.4 MG CAP.ER.24H PO SCH (09:13)
[2020-05-19] MEDS: Acetaminophen-Codeine 300-30mg TAB PO PRN (09:20)
[2020-05-19] MEDS: APIXABAN 2.5 MG TABLET PO SCH ×2 (09:30→19:51)
[2020-05-19 12:44] LABS: Glucose,Whole Blood 207 mg/dL (75-99)
[2020-05-19 13:25] LABS: Glucose,Whole Blood 79 mg/dL (75-99)
[2020-05-19 17:17] LABS: Glucose,Whole Blood 141 mg/dL (75-99)
[2020-05-19] MEDS: metFORMIN 500 MG TAB PO SCH (17:56)
[2020-05-19] MEDS: SODIUM CHLORIDE 0.9% 1,000 ML IV SCH (19:40)
[2020-05-19] MEDS: MONTELUKAST 10 MG TAB PO SCH (20:00)
[2020-05-19 21:05] LABS: Glucose,Whole Blood 148 mg/dL (75-99)
--- NOTE | 2020-05-20 02:55 | P.PN ---
Subjective Progress Note Date: 05/17/20 Patient is a 70-year-old female with a known history of asthma,/COPD, diabetes type 2, history of DVT x5 currently anticoagulation with Eliquis, hypertension, osteoarthritis, GERD and obstructive sleep apnea and history of total hip replacement in September 2019 and is on follow-up with PT OT on and off. Patient was at physical therapy when her left leg gave out and fell and landed on her left hip. Patient does use walker usually. Patient states that she has been having left leg weakness x4 days. Patient states that she felt dizzy. She has been having chronic problems with dizziness and chronic tremors. Patient landed on her left hip. Patient thinks she passed out for about 1 to 2 minutes. Denied any head injury. Denied any abdominal pain. No dysuria or hematuria. Denies any recent illnesse s or travel. Patient is Flexeril and Tylenol 3 for pain at home. Laboratory data reviewed. X-ray of the hip and pelvis showed no acute fracture or dislocation in the pelvis or left hip. 05/17/2020 Patient is still complaining of lower back pain. Seen by orthopedic surgery and recommended Solu-Medrol 60 mg every 8 hours x3 doses. MRI of the lumbar spine was ordered which showed degenerative first-degree L4-L5 spondylolysis unchanged. Spinal stenosis L4-L5 unchanged. No fracture. Mild posterior disc herniation at L2-L3 and L3-L4 anteriorly as well. Pain management was service was consulted for possible intra-articular steroid injection. Patient denied any complaints of chest pain or shortness of breath. No numbness or tingling. No fever no chills. No nausea vomiting or abdominal pain or diarrhea. Tolerating oral diet. Current medications reviewed. Objective - Vital Signs Vital signs: Vital Signs Temp 98.2 F 05/17/20 19:32 Pulse 96 05/17/20 19:32 Resp 17 05/17/20 19:32 BP 146/69 05/17/20 19:32 Pulse Ox 96 05/17/20 19:32 Intake & Output 05/17/20 05/17/20 05/18/20 06:59 18:59 06:59 Intake Total 1220 Balance 1220 Intake: Intake, IV Titration 140 Amount Sodium Chloride 0.9% 1, 140 000 ml @ 20 mls/hr IV . Q24H [facility] Rx#:[id number] Oral 1080 Other: Voiding Method Toilet Toilet # Voids 1 3 1 # Bowel Movements 0 - Exam PHYSICAL EXAMINATION: Patient is lying in the bed comfortably, no acute distress, awake alert and oriented.. HEENT: Normocephalic. Neck is supple. Pupils reactive. Nostrils clear. Oral cavity is moist. Ears reveal no drainage. Neck reveals no JVD, carotid bruits, or thyromegaly. CHEST EXAMINATION: Trachea is central. Symmetrical expansion. Lung hunter clear to auscultation and percussion. CARDIAC: Normal S1, S2 with no gallops. No murmurs ABDOMEN: Soft. Bowel sounds normal. No organomegaly. No abdominal bruits. Extremities: reveal no edema. No clubbing or cyanosis Neurologically awake, alert, oriented x3 with well-coordinated movements. No focal deficits noted. Left lower extremity mild weakness compared to right. Motor 4 out of 5. Skin: No rash or skin lesions. Psychiatric: Coperative. Nonsuicidal Musculoskeletal: No joint swelling or deformity. - Labs CBC & Chem 7: 05/18/20 04:56 05/18/20 04:56 Labs: Abnormal Lab Results - Last 24 Hours (Table) 05/17/20 05/17/20 05/17/20 Range/Units 12:47 18:24 19:53 POC Glucose (mg/dL) 125 H 166 H 158 H (75-99) mg/dL Assessment and Plan Assessment: Status post fall and landed on her left hip due to left leg weakness due to deconditioning. Left leg weakness Possible lumbar radiculopathy chronic dizziness. Recent left hip arthroplasty Asthma/COPD not in exacerbation History of DVT x5 currently on long-term anticoagulation GERD Hypertension Osteoarthritis Obstructive sleep apnea Hypothyroidism History of back surgery DVT prophylaxis patient is already on Eliquis Plan: Patient will be continued pain management and PT OT. Orthopedic surgery was consulted. s/p MRI. Patient had MRI of the lumbar spine showed no new changes. Planning for spinal steroid injection. Pain management service was consulted. Currently denied any complaints of dizziness. will continue with home medications and follow-up. Patient may need rehab transfer once her pain is better controlled. Prognosis guarded with multiple medical problems and comorbid conditions. Time with Patient: Greater than 30
--- NOTE | 2020-05-20 02:56 | P.PN ---
Subjective Progress Note Date: 05/18/20 Principal diagnosis: Status post fall and landed on her left hip due to left leg weakness due to deconditioning. Left leg weakness Possible lumbar radiculopathy Patient is a 70-year-old female with a known history of asthma,/COPD, diabetes type 2, history of DVT x5 currently anticoagulation with Eliquis, hypertension, osteoarthritis, GERD and obstructive sleep apnea and history of total hip replacement in September 2019 and is on follow-up with PT OT on and off. Patient was at physical therapy when her left leg gave out and fell and landed on her left hip. Patient does use walker usually. Patient states that she has been having left leg weakness x4 days. Patient states that she felt dizzy. She has been having chronic problems with dizziness and chronic tremors. Patient landed on her left hip. Patient thinks she passed out for about 1 to 2 minutes. Denied any head injury. Denied any abdominal pain. No dysuria or hematuria. Denies any recent illnesses or travel. Patient is Flexeril and Tylenol 3 for pain at home. Laboratory data reviewed. X-ray of the hip and pelvis showed no acute fracture or dislocation in the pelvis or left hip. 05/17/2020 Patient is still complaining of lower back pain. Seen by orthopedic surgery and recommended Solu-Medrol 60 mg every 8 hours x3 doses. MRI of the lumbar spine was ordered which showed degenerative first-degree L4-L5 spondylolysis unchanged. Spinal stenosis L4-L5 unchanged. No fracture. Mild posterior disc herniation at L2-L3 and L3-L4 anteriorly as well. Pain management was service w as consulted for possible intra-articular steroid injection. Patient denied any complaints of chest pain or shortness of breath. No numbness or tingling. No fever no chills. No nausea vomiting or abdominal pain or diarrhea. Tolerating oral diet. 05/18/2020 Patient is currently resting in the bed comfortably. Denies any chest pain or shortness of breath. Lower back pain is better today. No fever no chills. No headache or dizziness or lightheadedness. encouraged with PT OT. No other acute overnight issues. Current medications reviewed. Objective - Vital Signs Vital signs: Vital Signs Temp 98.2 F 05/18/20 21:20 Pulse 76 05/18/20 21:20 Resp 18 02/13/21 21:20 BP 124/72 05/18/20 21:20 Pulse Ox 98 05/18/20 21:20 Intake & Output 05/18/20 05/18/20 05/19/20 06:59 18:59 06:59 Intake Total 1080 Balance 1080 Intake: Oral 1080 Other: Voiding Method Toilet Toilet # Voids 1 3 1 # Bowel Movements 0 1 1 - Exam PHYSICAL EXAMINATION: Patient is lying in the bed comfortably, no acute distress, awake alert and oriented.. HEENT: Normocephalic. Neck is supple. Pupils reactive. Nostrils clear. Oral cavity is moist. Ears reveal no drainage. Neck reveals no JVD, carotid bruits, or thyromegaly. CHEST EXAMINATION: Trachea is central. Symmetrical expansion. Lung hunter clear to auscultation and percussion. CARDIAC: Normal S1, S2 with no gallops. No murmurs ABDOMEN: Soft. Bowel sounds normal. No organomegaly. No abdominal bruits. Extremities: reveal no edema. No clubbing or cyanosis Neurologically awake, alert, oriented x3 with well-coordinated movements. No focal deficits noted. Left lower extremity mild weakness compared to right. Motor 4 out of 5. Skin: No rash or skin lesions. Psychiatric: Coperative. Nonsuicidal Musculoskeletal: No joint swelling or deformity. - Labs CBC & Chem 7: 05/18/20 04:56 05/18/20 04:56 Labs: Abnormal Lab Results - Last 24 Hours (Table) 05/18/20 05/18/20 05/18/20 Range/Units 04:56 04:56 07:29 MPV 8.6 L (9.5-12.2) fL Monocytes # 0.09 L (0.20-1.00) X 10*3/uL Eosinophils # 0 L (0.04-0.35) X 10*3/uL Sodium 134 L (135-145) mmol/L Glucose 198 H (70-110) mg/dL POC Glucose (mg/dL) 144 H (75-99) mg/dL 05/18/20 05/18/20 05/18/20 Range/Units 12:20 17:15 21:18 MPV (9.5-12.2) fL Monocytes # (0.20-1.00) X 10*3/uL Eosinophils # (0.04-0.35) X 10*3/uL Sodium (135-145) mmol/L Glucose (70-110) mg/dL POC Glucose (mg/dL) 201 H 100 H 142 H (75-99) mg/dL Assessment and Plan Assessment: Status post fall and landed on her left hip due to left leg weakness due to deconditioning. Left leg weakness Possible lumbar radiculopathy chronic dizziness. Recent left hip arthroplasty Asthma/COPD not in exacerbation History of DVT x5 currently on long-term anticoagulation GERD Hypertension Osteoarthritis Obstructive sleep apnea Hypothyroidism History of back surgery DVT prophylaxis patient is already on Eliquis Plan: Patient will be continued pain management and PT OT. Orthopedic surgery was consulted. s/p MRI. Patient had MRI of the lumbar spine showed no new changes. Planning for spinal steroid injection. Pain management service was consulted. Currently denied any complaints of dizziness. will continue with home medications and follow-up. Patient may need rehab transfer once her pain is better controlled. Prognosis guarded with multiple medical problems and comorbid conditions. Time with Patient: Greater than 30
--- NOTE | 2020-05-20 02:58 | P.PN ---
Subjective Progress Note Date: 05/19/20 Principal diagnosis: Status post fall and landed on her left hip due to left leg weakness due to deconditioning. Left leg weakness Possible lumbar radiculopathy Patient is a 70-year-old female with a known history of asthma,/COPD, diabetes type 2, history of DVT x5 currently anticoagulation with Eliquis, hypertension, osteoarthritis, GERD and obstructive sleep apnea and history of total hip replacement in September 2019 and is on follow-up with PT OT on and off. Patient was at physical therapy when her left leg gave out and fell and landed on her left hip. Patient does use walker usually. Patient states that she has been having left leg weakness x4 days. Patient states that she felt dizzy. She has been having chronic problems with dizziness and chronic tremors. Patient landed on her left hip. Patient thinks she passed out for about 1 to 2 minutes. Denied any head injury. Denied any abdominal pain. No dysuria or hematuria. Denies any recent illnesses or travel. Patient is Flexeril and Tylenol 3 for pain at home. Laboratory data reviewed. X-ray of the hip and pelvis showed no acute fracture or dislocation in the pelvis or left hip. 05/17/2020 Patient is still complaining of lower back pain. Seen by orthopedic surgery and recommended Solu-Medrol 60 mg every 8 hours x3 doses. MRI of the lumbar spine was ordered which showed degenerative first-degree L4-L5 spondylolysis unchanged. Spinal stenosis L4-L5 unchanged. No fracture. Mild posterior disc herniation at L2-L3 and L3-L4 anteriorly as well. Pain management was service w as consulted for possible intra-articular steroid injection. Patient denied any complaints of chest pain or shortness of breath. No numbness or tingling. No fever no chills. No nausea vomiting or abdominal pain or diarrhea. Tolerating oral diet. 05/18/2020 Patient is currently resting in the bed comfortably. Denies any chest pain or shortness of breath. Lower back pain is better today. No fever no chills. No headache or dizziness or lightheadedness. encouraged with PT OT. No other acute overnight issues. 03/18/2021 Patient is currently resting in the bed comfortably. No complaints of chest pain or shortness breath. No nausea or vomiting or abdominal pain. Blood pressure is stable and saturating well on room air. Low back pain is controlled fairly. Patient is scheduled for steroid injection tomorrow. Anticipate discharge to rehab versus home with home care in the next 24 hours. Current medications reviewed. Objective - Vital Signs Vital signs: Vital Signs Temp 97.8 F 05/19/20 14:55 Pulse 70 05/19/20 14:55 Resp 16 05/19/20 14:55 BP 107/57 05/19/20 14:55 Pulse Ox 95 05/19/20 14:55 Intake & Output 05/18/20 05/19/20 05/19/20 18:59 06:59 18:59 Intake Total 1080 Output Total 1080 Balance 1080 -1080 Intake: Oral 1080 Output: Urine 1080 Other: Voiding Method Toilet Toilet Toilet # Voids 3 1 2 # Bowel Movements 1 2 - Exam PHYSICAL EXAMINATION: Patient is lying in the bed comfortably, no acute distress, awake alert and oriented.. HEENT: Normocephalic. Neck is supple. Pupils reactive. Nostrils clear. Oral cavity is moist. Ears reveal no drainage. Neck reveals no JVD, carotid bruits, or thyromegaly. CHEST EXAMINATION: Trachea is central. Symmetrical expansion. Lung hunter clear to auscultation and percussion. CARDIAC: Normal S1, S2 with no gallops. No murmurs ABDOMEN: Soft. Bowel sounds normal. No organomegaly. No abdominal bruits. Extremities: reveal no edema. No clubbing or cyanosis Neurologically awake, alert, oriented x3 with well-coordinated movements. No focal deficits noted. Left lower extremity mild weakness compared to right. Motor 4 out of 5. Skin: No rash or skin lesions. Psychiatric: Coperative. Nonsuicidal Musculoskeletal: No joint swelling or deformity. - Labs CBC & Chem 7: 05/18/20 04:56 05/18/20 04:56 Labs: Abnormal Lab Results - Last 24 Hours (Table) 05/18/20 05/19/20 05/19/20 Range/Units 21:18 12:42 17:16 POC Glucose (mg/dL) 142 H 207 H 141 H (75-99) mg/dL Assessment and Plan Assessment: Status post fall and landed on her left hip due to left leg weakness due to deconditioning. Left leg weakness Possible lumbar radiculopathy chronic dizziness. Recent left hip arthroplasty Asthma/COPD not in exacerbation History of DVT x5 currently on long-term anticoagulation GERD Hypertension Osteoarthritis Obstructive sleep apnea Hypothyroidism History of back surgery DVT prophylaxis patient is already on Eliquis Plan: Patient will be continued pain management and PT OT. Orthopedic surgery was consulted. s/p MRI. Patient had MRI of the lumbar spine showed no new changes. Planning for spinal steroid injection. Pain management service was consulted. Currently denied any complaints of dizziness. will continue with home medications and follow-up. Patient may need rehab transfer once her pain is better controlled. Prognosis guarded with multiple medical problems and comorbid conditions.
[2020-05-20] MEDS: LEVOTHYROXINE 50 MCG TAB PO SCH (06:09)
[2020-05-20 07:26] LABS: Glucose,Whole Blood 90 mg/dL (75-99)
[2020-05-20] MEDS: PANTOPRAZOLE 40 MG TABLET PO SCH (08:17)
[2020-05-20] MEDS: MULTIVITAMINS, THERA 1 EACH TAB PO SCH (08:17)
[2020-05-20] MEDS: POTASSIUM CHLORIDE ER 20 MEQ TAB.ER PO SCH ×2 (08:17→20:44)
[2020-05-20] MEDS: TAMSULOSIN 0.4 MG CAP.ER.24H PO SCH (08:17)
[2020-05-20] MEDS: DICYCLOMINE 10 MG CAP PO SCH ×2 (08:18→20:45)
[2020-05-20] MEDS: FAMOTIDINE 20 MG TAB PO SCH ×2 (08:18→20:44)
[2020-05-20] MEDS: ASPIRIN 81 MG PO SCH (08:18)
[2020-05-20] MEDS: CYCLOBENZAPRINE 10 MG TAB PO SCH ×2 (08:18→20:45)
[2020-05-20] MEDS: APIXABAN 2.5 MG TABLET PO SCH ×2 (08:18→20:46)
[2020-05-20] MEDS: GABAPENTIN 300 MG CAP PO SCH ×2 (08:18→20:45)
[2020-05-20] MEDS: HYDROmorphone 0.5 MG/0.5 ML SYRINGE IVP PRN ×4 (08:21→23:53)
[2020-05-20] MEDS: PRIMIDONE 50 MG TAB PO SCH (08:36)
[2020-05-20 09:26] LABS: Basophils # (A) 0.04 X 10*3/uL (0.00-0.10); Basophils % (A) 0.7 %; Eosinophils # (A) 0.19 X 10*3/uL (0.04-0.35); Eosinophils % (A) 3.3 %; HCT 37.6 % (37.2-46.3); HGB 12.4 g/dL (12.0-15.0); Lymphocytes # (A) 2.92 X 10*3/uL (0.90-5.00); MCH 30.5 pg (27.0-32.0); MCV 92.6 fL (80.0-97.0); Mean Platelet Volume 8.9 fL (9.5-12.2); Monocytes # (A) 0.48 X 10*3/uL (0.20-1.00); Monocytes % (A) 8.4 %; Neutrophils # (A) 2.09 X 10*3/uL (1.80-7.70); Neutrophils % (A) 36.4 %; Platelet Count 187 X 10*3/uL (140-440); RBC 4.06 X 10*6/uL (4.10-5.20); RDW 11.7 % (11.5-14.5); WBC 5.73 X 10*3/uL (4.50-10.00)
[2020-05-20 09:29] LABS: Anion Gap 2.3 mmol/L (4.00-12.00); BUN/Creat Ratio 25.71 Ratio (12.00-20.00); Calcium 8.7 mg/dL (8.7-10.3); Carbon Dioxide 30.7 mmol/L (21.6-31.8); Non-African American GFR(CKD) 87.2 (60.0-200.0); Potassium 4.5 mmol/L (3.5-5.5)
[2020-05-20 11:51] LABS: Glucose,Whole Blood 173 mg/dL (75-99)
[2020-05-20] MEDS: Acetaminophen-Codeine 300-30mg TAB PO PRN (11:52)
--- NOTE | 2020-05-20 12:07 | P.PN ---
Progress Note - Text Progress Note Date: 05/20/20 Orthopedics: History of present illness: Patient is a pleasant 70-year-old female seen and examined at the bedside for follow up evaluation for her left hip pain. She's had an MRI of the lumbar spine which was previously reviewed. Patient previously had a left total hip arthroplasty performed in [place] [address] Kim. Recently she felt dizzy while working through physical therapy and fell on 05/15/2020 landing on her left side. Her left-sided hip pain has been worsens that time. Her hardware at her left hip remains in good alignment and position. Since her admittance to the hospital her pain has not significantly change but been controlled with medications. Her pain is being controlled with Dilaudid and Pelham as prescribed as needed. Patient states she does have pain that radiates over the left hip. She has difficulty with performing hip flexion on the left. She has a history of previous surgical intervention in her lumbar spine performed by Dr. Mahajan and is known have chronic low back pain. She has previously worked through pain management both at [facility] and at [facility]. Consultation has been placed with pain management who was able to see the patient today. The patient states her planning for an injection tomorrow, 05/21/2020. Patient is admitted to medicine continue to see the patient for her other medical diagnoses. Patient's Eliquis is currently on hold in anticipation for injection tomorrow. She continues to take aspirin 81 mg by mouth daily. She has been able to work with physical therapy family to the restroom. She has difficulty ambulating the halls. She states today she has been working with physical therapy and occupational therapy. She denies any right lower extremity weakness or radiculopathy. She has been using a walker to aid in ambulation. Patient may need discharge to rehabilitation facility at the time of discharge. Physical exam: Patient is awake, alert, and oriented 3 Vital signs stable Good chest excursion with deep inspiration and expiration Examination of lumbar spine reveals skin is intact with no abrasions, lacerations, or bruises; no erythema, purulence or signs of infection Evidence of a well-healed incision along the midline of the mid to upper lumbar spine Dorsiflexion, plantarflexion, and extensor hallucis longus positive sustained bilaterally but weaker on the left with dorsiflexion Patient is able to lift the right lower extremity off the independently without difficulty Patient is unable to lift the left lower extremity off the bed independently Patellar reflexes 0/4 bilaterally Negative Lasegue's test bilaterally Evidence of well-healed incisions over the anterior bilateral knees No signs or symptoms of DVT; no calf pain No pain with internal and external rotation of the hips bilaterally Neurovascularly intact Pertinent studies: MRI of the lumbar spine taken on 05/17/2020: L2-3 posterior disc bulge; L3-4 disc protrusion and facet arthropathy resulting in moderate central canal stenosis and left neural foraminal stenosis; L4-5 degenerative disc disease, spondylolisthesis, disc protrusion, and facet arthropathy resulting in moderate central canal stenosis and bilateral neural foraminal narrowing; No evidence of acute body compression fracture; Imaging appears fairly stable as compared to previous imaging taken on 12/18/2014 Assessment: L3-4 and L4-5 spinal canal stenosis L4-5 spondylolisthesis and degenerative disc disease Lumbar facet arthropathy Left lower extremity weakness with hip flexion Chronic low back pain Left lower extremity radiculopathy History of lumbar surgery History of left total hip arthroplasty performed in September 2019 History of bilateral total knee arthroplasty Unsteady gait Diabetes mellitus COPD History of DVT Current anticoagulation use with Eliquis Hypertension Plan: 1. Kristen will continue conservative treatment as set forth previously. Patient recently underwent a an MRI of the lumbar spine which does show significant degenerative changes at L3-4 and L4-5 which have remained stable as compared to previous imaging from 12/18/2014. Patient has been experiencing worsening left lower extremity leg pain. She also has weakness with performing hip flexion on the left. Her total hip arthroplasty hardware remains in good alignment and good position and her left hip. Her symptoms may be stemming more from her lumbar spine. Consultation has been placed with pain management who was able to see the patient today and is planning for an injection tomorrow, 05/21/2020. We are not currently planning for any acute surgical intervention in regards to her lumbar spine. Patient does not currently wish to have any further surgical intervention at her lumbar spine. We did discuss her Eliquis anticoagulation is currently on hold in anticipation for possible injection this coming 05/21/2020. She may continue with aspirin 81 mg. It was discussed with nursing that her anticoagulation may be modified per recommendations by medicine. Patient may continue pain control with IV Dilaudid and oral Pelham as described as needed for control her symptoms. Patient is encouraged to continue working with physical therapy and using a walker to aid in ambulation. Patient is clear for discharge from an orthopedic standpoint. She may follow with Dr. Kim as previously scheduled. 2. Patient will continue be seen in examined by medicine for other medical diagnoses 3. Patient may need discharge to a rehabilitation facility at the time of discharge
--- NOTE | 2020-05-20 13:02 | P.PAINCN ---
History of Present Illness - Reason for Consult Consult date: 05/20/20 - History of Present Illness This is a 70 years old female with a history of chronic low back pain, and she fell on 05/15/2019, and she reported that her low back pain increases significantly after she fell and also she is having severe numbness and tingling sensation in her left lower extremity associated with some weakness, patient had MRI of the lumbar spine done showed that she had degenerative disc disease and is the first degree spondylolisthesis, and posterior disc herniation at L2-3 and L3 4 Past Medical History Past Medical History: Asthma, COPD, Diabetes Mellitus, Deep Vein Thrombosis (DVT), Eye Disorder, GERD/Reflux, Hypertension, Osteoarthritis (OA), Pneumonia, Skin Disorder, Sleep Apnea/CPAP/BIPAP, Thyroid Disorder Additional Past Medical History / Comment(s): Hx GLAUCOMA, TMJ, RENAL CALCULI, UTIs, DVT X 5 ( STATES CAUSED BY CONTROL PILLS AND HORMONES), USES BI-PAP MACHINE., MORONGO, HAND TREMORS, STATES DIABETES RESOLVED WITH WT LOSS- WATCHES DIET. History of Any Multi-Drug Resistant Organisms: None Reported Past Surgical History: Back Surgery, Bladder Surgery, Breast Surgery, Heart Catheterization, Hysterectomy, Joint Replacement, Orthopedic Surgery, Tonsillectomy Additional Past Surgical History / Comment(s): 04/17/16 arthrotomy removal olecranon spur and loose bodies R elbow. , RIGHT TOTAL HIP, LAPAROSCOPY, BREAST BIOPSY, JULIANNE CARPAL TUNNEL, JULIANNE KNEE REPLACEMENT, JULIANNE ROTATOR CUFF REPAIR, LEFT FOOT SURG. Past Anesthesia/Blood Transfusion Reactions: Postoperative Nausea & Vomiting (PONV) Past Psychological History: No Psychological Hx Reported Additional Psychological History / Comment(s): Pt lives alone. Using walker., uses bus for transportation Smoking Status: Never smoker Past Alcohol Use History: Rare Past Drug Use History: None Reported - Past Family History Mother Family Medical History: Hyperlipidemia, Hypertension Additional Family Medical History / Comment(s): Mother is 91 yrs old. Father Family Medical History: Osteoarthritis (OA) Sister(s) Family Medical History: Pulmonary Embolus Medications and Allergies Home Medications Medication Instructions Recorded Confirmed Type Fluticasone Propionate [Flovent 1 puff INHALATION RT-DAILY PRN 10/02/13 05/15/20 History Diskus] Levothyroxine Sodium [Synthroid] 150 mcg PO MOWEFR 10/02/13 05/15/20 History Levothyroxine Sodium [Synthroid] 175 mcg PO SUTUTHSA 10/02/13 05/15/20 History Montelukast [Singulair] 10 mg PO HS 10/02/13 05/15/20 History Nitroglycerin Sl Tabs [Nitrostat] 0.4 mg SL Q5M PRN 10/02/13 05/15/20 History Cyclobenzaprine [Flexeril] 10 mg PO BID 05/26/16 05/15/20 History Apixaban [Eliquis] 2.5 mg PO BID 09/29/19 05/15/20 History Aspirin [Adult Low Dose Aspirin EC] 81 mg PO DAILY 09/29/19 05/15/20 History Dicyclomine [Bentyl] 20 mg PO DAILY 09/29/19 05/15/20 History Multivit with Calcium,Iron,Min 1 tab PO DAILY 09/29/19 05/15/20 History [Women's Multivitamin] Albuterol Nebulized [Ventolin 2.5 mg INHALATION RT-BID PRN 02/09/20 05/15/20 History Nebulized] Gabapentin [Neurontin] 300 mg PO BID 02/09/20 05/15/20 History Insulin Aspart [NovoLOG Flexpen] See Protocol SQ AC-TID 02/09/20 05/15/20 History Potassium Chloride ER [K-Dur 20] 60 meq PO DAILY 02/09/20 05/15/20 History Zinc 50 mg PO DAILY 02/09/20 05/15/20 History glipiZIDE XL [Glucotrol XL] 2.5 mg PO DAILY 02/09/20 05/15/20 History lisinopriL [Zestril] 2.5 mg PO DAILY 02/09/20 05/15/20 History Acetaminophen-Codeine 300-30mg 1 tab PO TID PRN 05/15/20 05/15/20 History [Tylenol w/codeine #3] Dicyclomine [Bentyl] 40 mg PO HS 05/15/20 05/15/20 History Famotidine 40 mg PO BID 05/15/20 05/15/20 History Loperamide HCl [Imodium A-D] 6 mg PO ONCE PRN 05/15/20 05/15/20 History Metoclopramide [Reglan] 10 mg PO DAILY PRN 05/15/20 05/15/20 History Potassium Chloride ER [K-Dur 20] 40 meq PO HS 05/15/20 05/15/20 History Primidone [Mysoline] 600 mg PO DAILY 05/15/20 05/15/20 History Tamsulosin HCl [Flomax] 0.4 mg PO DAILY 05/15/20 05/15/20 History metFORMIN HCL [Glucophage] 500 mg PO PC-SUPPER 05/15/20 05/15/20 History Allergies Allergy/AdvReac Type Severity Reaction Status Date / Time enoxaparin sodium Allergy Unknown RED LUMPS Verified 05/15/20 17:36 [From Lovenox] ON ABDOMEN AT INJECTION SITES erythromycin base Allergy Unknown Rash/Hives Verified 05/15/20 17:36 latex Allergy Unknown Itching Verified 05/15/20 17:36 morphine Allergy Rash/Hives Verified 05/15/20 17:36 Sulfa (Sulfonamide Allergy Anaphylaxis Verified 05/15/20 17:36 Antibiotics) tetracycline [Tetracycline] Allergy Rash/Hives Verified 05/15/20 17:36 adhesive AdvReac Rash/Hives Verified 05/15/20 17:36 Physical Exam Vitals: Vital Signs Temp Pulse Resp BP Pulse Ox 05/20/20 02:45 71 18 05/20/20 02:00 97.7 F 65 18 114/70 98 05/19/20 19:49 71 18 05/19/20 19:46 98.7 F 71 18 102/61 93 L 05/19/20 14:55 97.8 F 70 16 107/57 95 05/19/20 14:00 70 16 Intake and Output 05/19/20 05/20/20 05/20/20 22:59 06:59 14:59 Intake Total 118 Balance 118 Intake: Oral 118 Other: Voiding Method Toilet Toilet # Voids 1 2 1 Physical Examinations : -Constitutiona : Cooperative , not in acute distress . -HEENT : nech : supple , no Lymphadenopathy , normal thyroid size . : eyes : no ptosis , no icterus, no photophobia . - neurologic : Cranial nerve II to XII intact , no focal neurological deffecit . -psychatric : alert , oriented X 3 , appropriate affect , intact judgment and insight . -Lymphatic : no Lymphadenopathy . - musculoskeltal : Lumber spine moter stegnth lower extremities ,thigh and legs 5/5 Right side , 4/5 Left side deep tendon reflexes : normal Knee Jerk , normal ankle Jerk lumber facet Loading Test =positive Right , posiutive Left Range of motion of the lumbar spine Flexion 30 degrees, extension 10 degrees strait leg raising test = positive at 30 degree on the left side is positive at 45 on the right side Fabere test= positive Right , and positive LT . Sever tenderness over the Sacroiliac joint on the Right , and Left sides Results CBC & Chem 7: 05/20/20 04:36 05/20/20 04:36 Labs: Abnormal Lab Results - Last 24 Hours (Table) 05/19/20 05/19/20 05/20/20 Range/Units 17:16 21:03 04:36 RBC 4.06 L (4.10-5.20) X 10*6/uL MPV 8.9 L (9.5-12.2) fL Anion Gap (4.00-12.00) mmol/L BUN/Creatinine Ratio (12.00-20.00) Ratio Glucose (70-110) mg/dL POC Glucose (mg/dL) 141 H 148 H (75-99) mg/dL 05/20/20 05/20/20 Range/Units 04:36 11:50 RBC (4.10-5.20) X 10*6/uL MPV (9.5-12.2) fL Anion Gap 2.30 L (4.00-12.00) mmol/L BUN/Creatinine Ratio 25.71 H (12.00-20.00) Ratio Glucose 117 H (70-110) mg/dL POC Glucose (mg/dL) 173 H (75-99) mg/dL Comments: MRI of the lumbar spine = degenerative disc disease L4 5 spondylolisthesis and L4 5 spinal stenosis L2 3 L3 4 disc herniation, chronic lumbar facet arthropathy Assessment and Plan Plan: Assessment and plan=1-lumbar radiculopathy. 2-lumbar degenerative disc disease. 3-lumbar spondylosis with lumbar facet arthropathy Patient could benefit from lumbar epidural steroid injections under fluoroscopy guidance We have to hold ELIQUIS was for 72 hours before the procedure Time with Patient: Greater than 30 PQRS Measure Charge Sheet PQRS Narrative: Smoking Status Never smoker Do You Want the Pneumonia Vaccine Up to Date Vaccine AT THIS TIME? Blood Pressure [Left Arm] 114/70 Blood Pressure 136/66 Pain Intensity [Left Hip] 8 Pain Intensity 9 Pain Scale Used Numeric (1 - 10) Scale Used Numeric (1 - 10) Home Medications: Ambulatory Orders Fluticasone Propionate [Flovent Diskus] 1 puff INHALATION RT-DAILY PRN 10/02/13 Levothyroxine Sodium [Synthroid] 150 mcg PO MOWEFR 10/02/13 Levothyroxine Sodium [Synthroid] 175 mcg PO SUTUTHSA 10/02/13 Montelukast [Singulair] 10 mg PO HS 10/02/13 Nitroglycerin Sl Tabs [Nitrostat] 0.4 mg SL Q5M PRN 10/02/13 Cyclobenzaprine [Flexeril] 10 mg PO BID 05/26/16 Apixaban [Eliquis] 2.5 mg PO BID 09/29/19 Aspirin [Adult Low Dose Aspirin EC] 81 mg PO DAILY 09/29/19 Dicyclomine [Bentyl] 20 mg PO DAILY 09/29/19 Multivit with Calcium,Iron,Min [Women's Multivitamin] 1 tab PO DAILY 09/29/19 Albuterol Nebulized [Ventolin Nebulized] 2.5 mg INHALATION RT-BID PRN 02/09/20 Gabapentin [Neurontin] 300 mg PO BID 02/09/20 Insulin Aspart [NovoLOG Flexpen] See Protocol SQ AC-TID 02/09/20 Potassium Chloride ER [K-Dur 20] 60 meq PO DAILY 02/09/20 Zinc 50 mg PO DAILY 02/09/20 glipiZIDE XL [Glucotrol XL] 2.5 mg PO DAILY 02/09/20 lisinopriL [Zestril] 2.5 mg PO DAILY 02/09/20 Acetaminophen-Codeine 300-30mg [Tylenol w/codeine #3] 1 tab PO TID PRN 05/15/20 Dicyclomine [Bentyl] 40 mg PO HS 05/15/20 Famotidine 40 mg PO BID 05/15/20 Loperamide HCl [Imodium A-D] 6 mg PO ONCE PRN 05/15/20 Metoclopramide [Reglan] 10 mg PO DAILY PRN 05/15/20 Potassium Chloride ER [K-Dur 20] 40 meq PO HS 05/15/20 Primidone [Mysoline] 600 mg PO DAILY 05/15/20 Tamsulosin HCl [Flomax] 0.4 mg PO DAILY 05/15/20 metFORMIN HCL [Glucophage] 500 mg PO PC-SUPPER 05/15/20
--- NOTE | 2020-05-20 14:46 | P.PN ---
Subjective Progress Note Date: 05/20/20 Status post fall and landed on her left hip due to left leg weakness due to deconditioning. Left leg weakness Possible lumbar radiculopathy Patient is a 70-year-old female with a known history of asthma,/COPD, diabetes type 2, history of DVT x5 currently anticoagulation with Eliquis, hypertension, osteoarthritis, GERD and obstructive sleep apnea and history of total hip replacement in September 2019 and is on follow-up with PT OT on and off. Patient was at physical therapy when her left leg gave out and fell and landed on her left hip. Patient does use walker usually. Patient states that she has been having left leg weakness x4 days. Patient states that she felt dizzy. She has been having chronic problems with dizziness and chronic tremors. Patient landed on her left hip. Patient thinks she passed out for about 1 to 2 minutes. Denied any head injury. Denied any abdominal pain. No dysuria or hematuria. Denies any recent illnesses or travel. Patient is Flexeril and Tylenol 3 for pain at home. Laboratory data reviewed. X-ray of the hip and pelvis showed no acute fracture or dislocation in the pelvis or left hip. 05/17/2020 Patient is still complaining of lower back pain. Seen by orthopedic surgery and recommended Solu-Medrol 60 mg every 8 hours x3 doses. MRI of the lumbar spine was ordered which showed degenerative first-degree L4-L5 spondylolysis unchan ged. Spinal stenosis L4-L5 unchanged. No fracture. Mild posterior disc herniation at L2-L3 and L3-L4 anteriorly as well. Pain management was service was consulted for possible intra-articular steroid injection. Patient denied any complaints of chest pain or shortness of breath. No numbness or tingling. No fever no chills. No nausea vomiting or abdominal pain or diarrhea. Tolerating oral diet. 05/18/2020 Patient is currently resting in the bed comfortably. Denies any chest pain or shortness of breath. Lower back pain is better today. No fever no chills. No headache or dizziness or lightheadedness. encouraged with PT OT. No other acute overnight issues. 03/18/2021 Patient is currently resting in the bed comfortably. No complaints of chest pain or shortness breath. No nausea or vomiting or abdominal pain. Blood pressure is stable and saturating well on room air. Low back pain is controlled fairly. Patient is scheduled for steroid injection tomorrow. Anticipate discharge to rehab versus home with home care in the next 24 hours. 05/20/2020 Patient is seen this morning continues to have back and hip pain and currently awaiting for pain management consult. Per orthopedics patient is to continue with conservative management with the possibility of steroid injection tomorrow with pain management. PT/OT to evaluate the patient as she continues to be weak with weakness and is an increased risk for falls. Patient currently refusing rehab would like to go home upon discharge. Discussed with case management and social work about discharge planning. Labs this morning within normal limits. Vital signs stable Review of systems: Constitutional: No reports of fatigue, fever, or chills Cardiovascular: No reports of chest pain or palpitations Respiratory: No reports of shortness of breath or cough GI: No reports of nausea, vomiting, or diarrhea : No reports of dysuria or retention Neurovascular: Reports some weakness and discomfort in the lower back and hips Current medications reviewed. Objective - Vital Signs Vital signs: Vital Signs Temp 97.7 F 05/20/20 02:00 Pulse 71 05/20/20 02:45 Resp 18 05/20/20 02:45 BP 114/70 05/20/20 02:00 Pulse Ox 98 05/20/20 02:00 Intake & Output 05/19/20 05/20/20 05/20/20 18:59 06:59 18:59 Intake Total 118 Output Total 1080 Balance -1080 118 Intake: Oral 118 Output: Urine 1080 Other: Voiding Method Toilet Toilet # Voids 2 2 1 - Exam Patient is sitting in the bed comfortably, no acute distress, awake alert and oriented. HEENT: Normocephalic. Neck is supple. Pupils reactive. Nostrils clear. Oral cavity is moist. Ears reveal no drainage. Neck reveals no JVD, carotid bruits, or thyromegaly. CHEST EXAMINATION: Trachea is central. Symmetrical expansion. Lung hunter clear to auscultation and percussion. CARDIAC: Normal S1, S2 with no gallops. No murmurs ABDOMEN: Soft. Bowel sounds normal. No organomegaly. No abdominal bruits. Extremities: reveal no edema. No clubbing or cyanosis Neurologically awake, alert, oriented x3 with well-coordinated movements. No focal deficits noted. Left lower extremity mild weakness compared to right. Motor 4 out of 5. Skin: No rash or skin lesions. Psychiatric: Cooperative. Non-suicidal Musculoskeletal: No joint swelling or deformity. - Labs CBC & Chem 7: 05/20/20 04:36 05/20/20 04:36 Labs: Abnormal Lab Results - Last 24 Hours (Table) 05/19/20 05/19/20 05/20/20 Range/Units 17:16 21:03 04:36 RBC 4.06 L (4.10-5.20) X 10*6/uL MPV 8.9 L (9.5-12.2) fL Anion Gap (4.00-12.00) mmol/L BUN/Creatinine Ratio (12.00-20.00) Ratio Glucose (70-110) mg/dL POC Glucose (mg/dL) 141 H 148 H (75-99) mg/dL 05/20/20 05/20/20 Range/Units 04:36 11:50 RBC (4.10-5.20) X 10*6/uL MPV (9.5-12.2) fL Anion Gap 2.30 L (4.00-12.00) mmol/L BUN/Creatinine Ratio 25.71 H (12.00-20.00) Ratio Glucose 117 H (70-110) mg/dL POC Glucose (mg/dL) 173 H (75-99) mg/dL Assessment and Plan Assessment: Status post fall and landed on her left hip due to left leg weakness due to deconditioning. Left leg weakness, Possible lumbar radiculopathy chronic dizziness Recent left hip arthroplasty Asthma/COPD not in exacerbation History of DVT x5 currently on long-term anticoagulation GERD Hypertension Osteoarthritis Obstructive sleep apnea Hypothyroidism History of back surgery DVT prophylaxis patient is already on Eliquis Plan: Patient will be seen and evaluated by pain management with the possibility of a steroid injection tomorrow. Orthopedics following recommending conservative management. MRI was repeated showing no new changes from previous. PT/OT to evaluate the patient and will discuss with case management and social work about discharge planning needs as patient is refusing rehab. Continue with appropriate home medications and will continue to monitor. Possible discharge in 24 hours.
[2020-05-20 17:07] LABS: Glucose,Whole Blood 139 mg/dL (75-99)
[2020-05-20 20:29] LABS: Glucose,Whole Blood 169 mg/dL (75-99)
[2020-05-20] MEDS: MONTELUKAST 10 MG TAB PO SCH (20:45)
[2020-05-20] MEDS: metFORMIN 500 MG TAB PO SCH (20:45)
[2020-05-20] MEDS: SODIUM CHLORIDE 0.9% 1,000 ML IV SCH (20:46)
[2020-05-21] MEDS: LEVOTHYROXINE 50 MCG TAB PO SCH ×2 (05:32→05:41)
[2020-05-21 07:20] LABS: Glucose,Whole Blood 85 mg/dL (75-99)
[2020-05-21] MEDS: DICYCLOMINE 10 MG CAP PO SCH ×2 (09:45→20:14)
[2020-05-21] MEDS: MULTIVITAMINS, THERA 1 EACH TAB PO SCH (09:45)
[2020-05-21] MEDS: GABAPENTIN 300 MG CAP PO SCH ×2 (09:45→20:14)
[2020-05-21] MEDS: CYCLOBENZAPRINE 10 MG TAB PO SCH ×2 (09:45→20:13)
[2020-05-21] MEDS: FAMOTIDINE 20 MG TAB PO SCH ×2 (09:46→20:13)
[2020-05-21] MEDS: TAMSULOSIN 0.4 MG CAP.ER.24H PO SCH (09:46)
[2020-05-21] MEDS: POTASSIUM CHLORIDE ER 20 MEQ TAB.ER PO SCH ×2 (09:46→20:13)
[2020-05-21] MEDS: ASPIRIN 81 MG PO SCH (09:46)
[2020-05-21] MEDS: PANTOPRAZOLE 40 MG TABLET PO SCH (09:46)
[2020-05-21] MEDS: PRIMIDONE 50 MG TAB PO SCH (09:46)
[2020-05-21] MEDS: APIXABAN 2.5 MG TABLET PO SCH (09:49)
[2020-05-21] MEDS: HYDROmorphone 0.5 MG/0.5 ML SYRINGE IVP PRN ×3 (09:57→20:11)
[2020-05-21 11:47] LABS: Glucose,Whole Blood 107 mg/dL (75-99)
[2020-05-21] MEDS: HYDROcodone/APAP 5-325MG 1 EACH TAB PO PRN (13:23)
--- NOTE | 2020-05-21 13:48 | P.PN ---
Subjective Progress Note Date: 05/21/20 Status post fall and landed on her left hip due to left leg weakness due to deconditioning. Left leg weakness Possible lumbar radiculopathy Patient is a 70-year-old female with a known history of asthma,/COPD, diabetes type 2, history of DVT x5 currently anticoagulation with Eliquis, hypertension, osteoarthritis, GERD and obstructive sleep apnea and history of total hip replacement in September 2019 and is on follow-up with PT OT on and off. Patient was at physical therapy when her left leg gave out and fell and landed on her left hip. Patient does use walker usually. Patient states that she has been having left leg weakness x4 days. Patient states that she felt dizzy. She has been having chronic problems with dizziness and chronic tremors. Patient landed on her left hip. Patient thinks she passed out for about 1 to 2 minutes. Denied any head injury. Denied any abdominal pain. No dysuria or hematuria. Denies any recent illnesses or travel. Patient is Flexeril and Tylenol 3 for pain at home. Laboratory data reviewed. X-ray of the hip and pelvis showed no acute fracture or dislocation in the pelvis or left hip. 05/17/2020 Patient is still complaining of lower back pain. Seen by orthopedic surgery and recommended Solu-Medrol 60 mg every 8 hours x3 doses. MRI of the lumbar spine was ordered which showed degenerative first-degree L4-L5 spondylolysis unchan ged. Spinal stenosis L4-L5 unchanged. No fracture. Mild posterior disc herniation at L2-L3 and L3-L4 anteriorly as well. Pain management was service was consulted for possible intra-articular steroid injection. Patient denied any complaints of chest pain or shortness of breath. No numbness or tingling. No fever no chills. No nausea vomiting or abdominal pain or diarrhea. Tolerating oral diet. 05/18/2020 Patient is currently resting in the bed comfortably. Denies any chest pain or shortness of breath. Lower back pain is better today. No fever no chills. No headache or dizziness or lightheadedness. encouraged with PT OT. No other acute overnight issues. 03/18/2021 Patient is currently resting in the bed comfortably. No complaints of chest pain or shortness breath. No nausea or vomiting or abdominal pain. Blood pressure is stable and saturating well on room air. Low back pain is controlled fairly. Patient is scheduled for steroid injection tomorrow. Anticipate discharge to rehab versus home with home care in the next 24 hours. 05/20/2020 Patient is seen this morning continues to have back and hip pain and currently awaiting for pain management consult. Per orthopedics patient is to continue with conservative management with the possibility of steroid injection tomorrow with pain management. PT/OT to evaluate the patient as she continues to be weak with weakness and is an increased risk for falls. Patient currently refusing rehab would like to go home upon discharge. Discussed with case management and social work about discharge planning. Labs this morning within normal limits. Vital signs stable 05/21/2020 Patient is seen and evaluated this morning continues to have pain and requesting Dilaudid. Pain management is following and were planning on an epidural injection although patient apparently received Eliquis 2 days prior and needs to be off of anticoagulation for 72 hours. Anticoagulant on hold and removed from JUN and will resume after injection tomorrow. Discussed with the patient again at length about being high risk for falls and continued weakness although patient is adamant about going home and states she has help at the home. Patient is refusing rehab at this time. Review of systems: Constitutional: No reports of fatigue, fever, or chills Cardiovascular: No reports of chest pain or palpitations Respiratory: No reports of shortness of breath or cough GI: No reports of nausea, vomiting, or diarrhea : No reports of dysuria or retention Neurovascular: Reports some weakness and discomfort in the lower back and hips Current medications reviewed. Objective - Vital Signs Vital signs: Vital Signs Temp 97.9 F 05/21/20 07:00 Pulse 59 L 05/21/20 07:00 Resp 16 05/21/20 07:00 BP 126/81 05/21/20 07:00 Pulse Ox 98 05/21/20 07:00 Intake & Output 05/20/20 05/21/20 05/21/20 18:59 06:59 18:59 Intake Total 236 240 Output Total 1080 Balance 236 -840 Intake: Oral 236 240 Output: Urine 1080 Other: Voiding Method Toilet Toilet # Voids 1 1 - Exam Patient is sitting in the bed comfortably, no acute distress, awake alert and oriented. HEENT: Normocephalic. Neck is supple. Pupils reactive. Nostrils clear. Oral cavity is moist. Ears reveal no drainage. Neck reveals no JVD, carotid bruits, or thyromegaly. CHEST EXAMINATION: Trachea is central. Symmetrical expansion. Lung hunter clear to auscultation and percussion. CARDIAC: Normal S1, S2 with no gallops. No murmurs ABDOMEN: Soft. Bowel sounds normal. No organomegaly. No abdominal bruits. Extremities: reveal no edema. No clubbing or cyanosis Neurologically awake, alert, oriented x3 with well-coordinated movements. No focal deficits noted. Left lower extremity mild weakness compared to right. Motor 4 out of 5. Skin: No rash or skin lesions. Psychiatric: Cooperative. Non-suicidal Musculoskeletal: No joint swelling or deformity. - Labs CBC & Chem 7: 05/20/20 04:36 05/20/20 04:36 Labs: Abnormal Lab Results - Last 24 Hours (Table) 05/20/20 05/20/20 05/20/20 Range/Units 04:36 04:36 11:50 RBC 4.06 L (4.10-5.20) X 10*6/uL MPV 8.9 L (9.5-12.2) fL Anion Gap 2.30 L (4.00-12.00) mmol/L BUN/Creatinine Ratio 25.71 H (12.00-20.00) Ratio Glucose 117 H (70-110) mg/dL POC Glucose (mg/dL) 173 H (75-99) mg/dL 05/20/20 05/20/20 Range/Units 17:06 20:28 RBC (4.10-5.20) X 10*6/uL MPV (9.5-12.2) fL Anion Gap (4.00-12.00) mmol/L BUN/Creatinine Ratio (12.00-20.00) Ratio Glucose (70-110) mg/dL POC Glucose (mg/dL) 139 H 169 H (75-99) mg/dL Assessment and Plan Assessment: Status post fall and landed on her left hip due to left leg weakness due to deconditioning. Left leg weakness, Possible lumbar radiculopathy chronic dizziness Recent left hip arthroplasty Asthma/COPD not in exacerbation History of DVT x5 currently on long-term anticoagulation, currently on hold for injection tomorrow and will resume after GERD Hypertension Osteoarthritis Obstructive sleep apnea Hypothyroidism History of back surgery DVT prophylaxis patient is already on Eliquis, currently on hold and will resume after injection tomorrow Plan: Patient will be seen and evaluated by pain management with the possibility of a steroid injection tomorrow. Apparently per nursing staff patient received a do se of Eliquis 2 days ago and needs to be 72 hours with no anticoagulant for epidural injection. Orthopedics following recommending conservative management. PT/OT continues to recommend subacute rehab for strength and mobility although patient is refusing rehab and states she has help in the home and is adamant about going home. Continue with appropriate home medications and will continue to monitor. Will resume anticoagulant Eliquis 2.5mg twice daily after epidural injection tomorrow. Discharge in 24 hours.
[2020-05-21 16:57] LABS: Glucose,Whole Blood 146 mg/dL (75-99)
[2020-05-21] MEDS: metFORMIN 500 MG TAB PO SCH (18:07)
[2020-05-21 19:44] LABS: Glucose,Whole Blood 165 mg/dL (75-99)
[2020-05-21] MEDS: MONTELUKAST 10 MG TAB PO SCH (20:13)
[2020-05-21] MEDS: Acetaminophen-Codeine 300-30mg TAB PO PRN (22:08)
[2020-05-22 04:16] VITALS: RESP 16
[2020-05-22] MEDS: HYDROmorphone 0.5 MG/0.5 ML SYRINGE IVP PRN ×2 (05:51→09:56)
[2020-05-22] MEDS: LEVOTHYROXINE 50 MCG TAB PO SCH (05:51)
[2020-05-22 06:58] VITALS: TEMP 97.7
[2020-05-22 07:07] LABS: Glucose,Whole Blood 92 mg/dL (75-99)
[2020-05-22] MEDS ORDERED: IV FLUID CONTINUATION 1,000 ML IV ONE (07:30)
[2020-05-22] MEDS ORDERED: MIDAZOLAM 2 MG/2 ML VIAL IVP ONE (07:41)
[2020-05-22] MEDS ORDERED: fentaNYL (PF) 50 MCG/ML 2 ML AMP IVP ONE (07:41)
[2020-05-22] MEDS ORDERED: PRIMIDONE 50 MG TAB PO SCH (09:00)
[2020-05-22] MEDS ORDERED: PRIMIDONE 250 MG TAB PO SCH (09:00)
--- NOTE | 2020-05-22 09:15 | P.PCN ---
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 PROCEDURE 1. Lumbar epidural steroid injection at the L4-5 level. 2. Lumbar epidurogram. ANESTHESIA: Local with 1% lidocaine 3 ml and , moderate sedation with intravenous Versed 1 mg ,and fentanyle 50 Mcg EBL: Minimal PROCEDURE INDICATION: The patient with low back pain and radiculitis symptoms unresponsive to conservative treatment. Fluoroscopy was used to optimize visualization of the needle placement and to maximize safety. PROCEDURE DESCRIPTION / TECHNIQUE: The patient was seen and identified in the recovery room area. Risks, benefits, complications including but not limited to infections ,bleeding ,allergic reaction to the medications ,nerve damage and not complete pain releife , and alternatives were discussed with the patient. The patient agreed to proceed with the procedure and signed the consent. IV was started, and vital signs were stable. . The patient was placed in the sitting position,. The lumbosacral area was prepped and draped in the usual sterile fashion.ere closely monitored during the procedure. Conscious sedation was used during the procedure to decrease patients anxiety. Vital signs was monitered during the entire procedure. , the L4-5 interlaminar space , then infiltrated with 1% lidocaine lujan bcutaneously. Subsequently, a 20-gauge Tuohy epidural needle was inserted and advanced toward the epidural space using the ``Loss of resistance technique., after negative aspiration for blood and CSF and in the absence of paresthesias. Again after negative aspiration, a 6 ml mixture containing 40 mg of Kenalog , and 2 ml of preservative free Normal Saline, and 2 ml of preservative free lidocaine 1% solution was injeted. Needle was withdrawn intact, skin was cleansed, and bandages were applied. COMPLICATIONS: None DISPOSITION / PLANS: The patient was placed in a supine position and transferred to the recovery area in a stable condition for observation. There was no evidence of lower extremity motor or sensory deficit after the procedure. Patient was discharged from the recovery room after meeting discharge criteria. . The patient will schedule a follow up in the clinic in 2-4 weeks. note = patient on ELEQUIS , and this is the reason we waited 3 days before we can proceed with the lumbar epidural steroid injection, she can resume ELEQUIS 12 hours after the procedure, fluoroscopy was not used , because we don't have fluoroscopy available today
[2020-05-22] MEDS: GABAPENTIN 300 MG CAP PO SCH (09:17)
[2020-05-22] MEDS: POTASSIUM CHLORIDE ER 20 MEQ TAB.ER PO SCH (09:17)
[2020-05-22] MEDS: TAMSULOSIN 0.4 MG CAP.ER.24H PO SCH (09:17)
[2020-05-22] MEDS: MULTIVITAMINS, THERA 1 EACH TAB PO SCH (09:17)
[2020-05-22] MEDS: PANTOPRAZOLE 40 MG TABLET PO SCH (09:17)
[2020-05-22] MEDS: DICYCLOMINE 10 MG CAP PO SCH (09:18)
[2020-05-22] MEDS: CYCLOBENZAPRINE 10 MG TAB PO SCH (09:18)
[2020-05-22] MEDS: ASPIRIN 81 MG PO SCH (09:18)
[2020-05-22] MEDS: FAMOTIDINE 20 MG TAB PO SCH (09:18)
[2020-05-22 10:03] VITALS: BP 145/77; PULSE 60
--- NOTE | 2020-05-22 11:54 | P.DS ---
Providers Date of admission: 05/17/20 10:20 Attending physician: Serene Cui Consults: 05/16/20 11:28 Consult Physician Routine Consulting Provider: Sonny Kim Consult Reason/Comments: fall Do you want consulting provider notified?: Yes 05/17/20 13:16 Consult Physician Urgent Consulting Provider: Jonny Will Consult Reason/Comments: Pain management eval, poss SHANNA Do you want consulting provider notified?: Yes Primary care physician: Josy Man [facility] Course: Status post fall and landed on her left hip due to left leg weakness due to deconditioning. Left leg weakness Possible lumbar radiculopathy Patient is a 70-year-old female with a known history of asthma,/COPD, diabetes type 2, history of DVT x5 currently anticoagulation with Eliquis, hypertension, osteoarthritis, GERD and obstructive sleep apnea and history of total hip replacement in September 2019 and is on follow-up with PT OT on and off. Patient was at physical therapy when her left leg gave out and fell and landed on her left hip. Patient does use walker usually. Patient states that she has been having left leg weakness x4 days. Patient states that she felt dizzy. She has been having chronic problems with dizziness and chronic tremors. Patient landed on her left hip. Patient thinks she passed out for about 1 to 2 minutes. Denied any head injury. Denied any abdominal pain. No dysuria or hematuria. Denies any recent illnesses or travel. Patient is Flexeril and Tylenol 3 for pain at home. Laboratory data reviewed. X-ray of the hip and pelvis showed no acute fracture or dislocation in the pelvis or left hip. 05/17/2020 Patient is still complaining of lower back pain. Seen by orthopedic surgery and recommended Solu-Medrol 60 mg every 8 hours x3 doses. MRI of the lumbar spine was ordered which showed degenerative first-degree L4-L5 spondylolysis unchanged. Spinal stenosis L4-L5 unchanged. No fracture. Mild posterior disc herniation at L2-L3 and L3-L4 anteriorly as well. Pain management was service was consulted for possible intra-articular steroid injection. Patient denied any complaints of chest pain or shortness of breath. No numbness or tingling. No fever no chills. No nausea vomiting or abdominal pain or diarrhea. Tolerating oral diet. 05/18/2020 Patient is currently resting in the bed comfortably. Denies any chest pain or shortness of breath. Lower back pain is better today. No fever no chills. No headache or dizziness or lightheadedness. encouraged with PT OT. No other acute overnight issues. 03/18/2021 Patient is currently resting in the bed comfortably. No complaints of chest pain or shortness breath. No nausea or vomiting or abdominal pain. Blood pressure is stable and saturating well on room air. Low back pain is controlled fairly. Patient is scheduled for steroid injection tomorrow. Anticipate discharge to rehab versus home with home care in the next 24 hours. 05/20/2020 Patient is seen this morning continues to have back and hip pain and currently awaiting for pain management consult. Per orthopedics patient is to continue with conservative management with the possibility of steroid injection tomorrow with pain management. PT/OT to evaluate the patient as she continues to be weak with weakness and is an increased risk for falls. Patient currently refusing rehab would like to go home upon discharge. Discussed with case management and social work about discharge planning. Labs this morning within normal limits. Vital signs stable 05/21/2020 Patient is seen and evaluated this morning continues to have pain and requesting Dilaudid. Pain management is following and were planning on an epidural injection although patient apparently received Eliquis 2 days prior and needs to be off of anticoagulation for 72 hours. Anticoagulant on hold and removed from JUN and will resume after injection tomorrow. Discussed with the patient again at length about being high risk for falls and continued weakness although patient is adamant about going home and states she has help at the home. Patient is refusing rehab at this time. 05/22/2020 Patient received lumbar epidural injection. Patient is agreeable to go to subacute intimidation will be discharged to subacute rehab. - Exam Patient is sitting in the bed comfortably, no acute distress, awake alert and oriented. HEENT: Normocephalic. Neck is supple. Pupils reactive. Nostrils clear. Oral cavity is moist. Ears reveal no drainage. Neck reveals no JVD, carotid bruits, or thyromegaly. CHEST EXAMINATION: Trachea is central. Symmetrical expansion. Lung hunter clear to auscultation and percussion. CARDIAC: Normal S1, S2 with no gallops. No murmurs ABDOMEN: Soft. Bowel sounds normal. No organomegaly. No abdominal bruits. Extremities: reveal no edema. No clubbing or cyanosis Neurologically awake, alert, oriented x3 with well-coordinated movements. No focal deficits noted. Left lower extremity mild weakness compared to right. Motor 4 out of 5. Skin: No rash or skin lesions. Psychiatric: Cooperative. Non-suicidal Musculoskeletal: No joint swelling or deformity. Assessment and Plan Low back pain severe lumbar radiculopathy for which patient received epidural steroid injection at the L4-L5 level patient will be discharged today Status post fall and landed on her left hip due to left leg weakness due to deconditioning. chronic dizziness Recent left hip arthroplasty Asthma/COPD not in exacerbation History of DVT x5 currently on long-term anticoagulation, currently on hold for injection tomorrow and will resume after GERD Hypertension Osteoarthritis Obstructive sleep apnea Hypothyroidism Plan - Discharge Summary Discharge Rx Participant: No New Discharge Prescriptions: New HYDROcodone/APAP 5-325MG [Macon 5-325] 1 each PO Q6HR PRN #20 tab PRN Reason: Pain Continue Fluticasone Propionate [Flovent Diskus] 1 puff INHALATION RT-DAILY PRN PRN Reason: Shortness Of Breath Montelukast [Singulair] 10 mg PO HS Levothyroxine Sodium [Synthroid] 150 mcg PO MOWEFR Levothyroxine Sodium [Synthroid] 175 mcg PO SUTUTHSA Nitroglycerin Sl Tabs [Nitrostat] 0.4 mg SL Q5M PRN PRN Reason: chest pain Cyclobenzaprine [Flexeril] 10 mg PO BID Dicyclomine [Bentyl] 20 mg PO DAILY Apixaban [Eliquis] 2.5 mg PO BID Multivit with Calcium,Iron,Min [Women's Multivitamin] 1 tab PO DAILY Aspirin [Adult Low Dose Aspirin EC] 81 mg PO DAILY Potassium Chloride ER [K-Dur 20] 60 meq PO DAILY Zinc 50 mg PO DAILY Albuterol Nebulized [Ventolin Nebulized] 2.5 mg INHALATION RT-BID PRN PRN Reason: Shortness Of Breath Insulin Aspart [NovoLOG Flexpen] See Protocol SQ AC-TID glipiZIDE XL [Glucotrol XL] 2.5 mg PO DAILY Famotidine 40 mg PO BID metFORMIN HCL [Glucophage] 500 mg PO PC-SUPPER Potassium Chloride ER [K-Dur 20] 40 meq PO HS Primidone [Mysoline] 300 mg PO DAILY Tamsulosin HCl [Flomax] 0.4 mg PO DAILY Loperamide HCl [Imodium A-D] 6 mg PO ONCE PRN PRN Reason: Diarrhea Metoclopramide [Reglan] 10 mg PO DAILY PRN PRN Reason: Nausea Gabapentin [Neurontin] 300 mg PO BID #20 cap Acetaminophen-Codeine 300-30mg [Tylenol w/codeine #3] 1 tab PO TID PRN #20 tab PRN Reason: Pain Changed Dicyclomine [Bentyl] 40 mg PO HS PRN #1 PRN Reason: Diarrhea Discontinued lisinopriL [Zestril] 2.5 mg PO DAILY Discharge Medication List Fluticasone Propionate [Flovent Diskus] 1 puff INHALATION RT-DAILY PRN 10/02/13 [History] Levothyroxine Sodium [Synthroid] 150 mcg PO MOWEFR 10/02/13 [History] Levothyroxine Sodium [Synthroid] 175 mcg PO SUTUTHSA 10/02/13 [History] Montelukast [Singulair] 10 mg PO HS 10/02/13 [History] Nitroglycerin Sl Tabs [Nitrostat] 0.4 mg SL Q5M PRN 10/02/13 [History] Cyclobenzaprine [Flexeril] 10 mg PO BID 05/26/16 [History] Apixaban [Eliquis] 2.5 mg PO BID 09/29/19 [History] Aspirin [Adult Low Dose Aspirin EC] 81 mg PO DAILY 09/29/19 [History] Dicyclomine [Bentyl] 20 mg PO DAILY 09/29/19 [History] Multivit with Calcium,Iron,Min [Women's Multivitamin] 1 tab PO DAILY 09/29/19 [History] Albuterol Nebulized [Ventolin Nebulized] 2.5 mg INHALATION RT-BID PRN 02/09/20 [History] Insulin Aspart [NovoLOG Flexpen] See Protocol SQ AC-TID 02/09/20 [History] Potassium Chloride ER [K-Dur 20] 60 meq PO DAILY 02/09/20 [History] Zinc 50 mg PO DAILY 02/09/20 [History] glipiZIDE XL [Glucotrol XL] 2.5 mg PO DAILY 02/09/20 [History] Famotidine 40 mg PO BID 05/15/20 [History] Loperamide HCl [Imodium A-D] 6 mg PO ONCE PRN 05/15/20 [History] Metoclopramide [Reglan] 10 mg PO DAILY PRN 05/15/20 [History] Potassium Chloride ER [K-Dur 20] 40 meq PO HS 05/15/20 [History] Primidone [Mysoline] 300 mg PO DAILY 05/15/20 [History] Tamsulosin HCl [Flomax] 0.4 mg PO DAILY 05/15/20 [History] metFORMIN HCL [Glucophage] 500 mg PO PC-SUPPER 05/15/20 [History] Acetaminophen-Codeine 300-30mg [Tylenol w/codeine #3] 1 tab PO TID PRN #20 tab 05/22/20 [Rx] Dicyclomine [Bentyl] 40 mg PO HS PRN #1 05/22/20 [Rx] Gabapentin [Neurontin] 300 mg PO BID #20 cap 05/22/20 [Rx] HYDROcodone/APAP 5-325MG [Macon 5-325] 1 each PO Q6HR PRN #20 tab 05/22/20 [Rx] Follow up Appointment(s)/Referral(s): Josy Man MD [Primary Care Provider] - 3 Days [facility], [NON-STAFF] - 1-2 Days Sonny Kim MD [STAFF PHYSICIAN] - As Needed (Patient may follow-up with Dr. Kim at [facility] as previously scheduled following discharge. ) Activity/Diet/Wound Care/Special Instructions: 1. Encouraged to use a walker to aid in ambulation as needed 2. Encouraged to continue working with physical therapy to increase mobility and ambulation Discharge Disposition: TRANSFER TO SNF/ECF
[2020-05-22 12:17] LABS: Glucose,Whole Blood 95 mg/dL (75-99)
== END 2020-05-22 14:45 | disposition home health service (06) | DRG 552 ==
LOC: EC 15:01 → 6NMEDSUR 18:29 → OBSVTOIN 05-17 10:20
PROVIDERS: ADMIT Hospitalist; ATTEND Hospitalist
PROC: B01B1ZZ Fluoroscopy of Spinal Cord using Low Osmolar Contrast (ICD-10-PCS; 2020-05-22)
PROC: 3E0R33Z Introduction of Anti-inflammatory into Spinal Canal, Percutaneous Approach (ICD-10-PCS; principal; 2020-05-22 07:30)
DX: M51.16 Intervertebral disc disorders with radiculopathy, lumbar region (principal); Z79.4 Long term (current) use of insulin; E11.9 Type 2 diabetes mellitus without complications; J44.9 Chronic obstructive pulmonary disease, unspecified; M47.26 Other spondylosis with radiculopathy, lumbar region; Z20.822 Contact with and (suspected) exposure to COVID-19; R25.1 Tremor, unspecified; I10 Essential (primary) hypertension; K21.9 Gastro-esophageal reflux disease without esophagitis; H40.9 Unspecified glaucoma; R27.0 Ataxia, unspecified; M48.061 Spinal stenosis, lumbar region without neurogenic claudication; M43.16 Spondylolisthesis, lumbar region; G47.33 Obstructive sleep apnea (adult) (pediatric); E03.9 Hypothyroidism, unspecified; G89.29 Other chronic pain; R29.6 Repeated falls; W19.XXXA Unspecified fall, initial encounter; Z91.81 History of falling; Z79.51 Long term (current) use of inhaled steroids; Z79.890 Hormone replacement therapy; Z79.899 Other long term (current) drug therapy; Z79.01 Long term (current) use of anticoagulants; Z79.82 Long term (current) use of aspirin; Z87.01 Personal history of pneumonia (recurrent); Z87.442 Personal history of urinary calculi; Z86.718 Personal history of other venous thrombosis and embolism; Z90.710 Acquired absence of both cervix and uterus; Z98.890 Other specified postprocedural states; Z96.653 Presence of artificial knee joint, bilateral; Z96.643 Presence of artificial hip joint, bilateral; Z88.5 Allergy status to narcotic agent; Z88.2 Allergy status to sulfonamides; Z88.1 Allergy status to other antibiotic agents; Z91.040 Latex allergy status; Z82.61 Family history of arthritis; Z82.49 Family history of ischemic heart disease and other diseases of the circulatory system; Z83.438 Family history of other disorder of lipoprotein metabolism and other lipidemia
CPT/HCPCS: 62323; 72148; 73502; 80048; 80053; 83735; 85025; 87635; 96374; 96376; 99285

== ENCOUNTER 2020-08-30 10:17 | Day surgery (SDC) | payer MEDICARE, OTHER ==
[~2020-08-30 10:17] MED LIST changes: -ACETAMINOPHEN TAB 500 MG TAB PO ONE; +DEXAMETHASONE SOD PHOSPHATE 4 MG/ML 1 ML VIAL IV ONE; -GABAPENTIN 300 MG CAP PO ONE; +HYDROmorphone 0.5 MG/0.5 ML SYRINGE IVP PRN; +LACTATED RINGERS 1,000 ML IV SCH; +LIDOCAINE 1% (10MG/ML) FOR IV START INTRADERMA PRN; -MELOXICAM 7.5 MG TAB PO ONE; -ROPIVACAINE 246.25 MG, EPINEPHrine 0.5 MG, KETOROLAC 30 MG, cloNIDine HCL/PF 80 MCG, WA... MISCELLANE ONE; -TRANEXAMIC ACID 1,000 MG in SODIUM CHLORIDE 0.9% 100 ML IVPB ONE; -VANCOMYCIN 1,000 MG in SODIUM CHLORIDE 0.9% 250 ML IVPB ONE; +VANCOMYCIN 1,250 MG in SODIUM CHLORIDE 0.9% 250 ML IVPB PRN; -fentaNYL (PF) 50 MCG/ML 2 ML AMP IV PRN
[2020-08-30 11:50] LABS: Glucose,Whole Blood 108 mg/dL (75-99)
[2020-08-30] MEDS ORDERED: SUCCINYLCHOLINE CHLORIDE 100 MG/5 ML SYR IV ONE (13:18)
[2020-08-30] MEDS ORDERED: PROPOFOL 10 MG/ML 20 ML VIAL IV ONE (13:18)
[2020-08-30] MEDS ORDERED: LIDOCAINE 1% INJ 10MG/ML (20 ML MDV) ONE (13:18)
[2020-08-30] MEDS ORDERED: GLYCOPYRROLATE 0.2 MG/ML 2 ML VIAL ONE (13:18)
[2020-08-30] MEDS ORDERED: fentaNYL (PF) 50 MCG/ML 2 ML AMP ONE (13:18)
[2020-08-30] MEDS ORDERED: BUPIVACAINE (PF) 0.25% 30 ML VIAL SQ ONE ×2 (13:35→13:39)
[2020-08-30 14:43] LABS: Glucose,Whole Blood 149 mg/dL (75-99)
[2020-08-30 14:48] VITALS: TEMP 97.4
--- NOTE | 2020-08-30 15:05 | P.OP ---
Date of Procedure: 08/30/20 Preoperative Diagnosis: Hammertoes digits 2 through 5 left foot Postoperative Diagnosis: Same Procedure(s) Performed: Hammertoe corrections 2 through 5 left foot Implants: 3 [employer] implants Anesthesia: PAULINA Surgeon: Mickey Tran Estimated Blood Loss (ml): 3 Pathology: none sent Condition: stable Disposition: PACU Indications for Procedure: Painful hammertoes unresponsive conservative therapy Description of Procedure: The patient was brought into the operative room placed on table supine position. Timeout was taken to confirm correct patient identifiers, correct site of surgery, and correct procedure. When the room was in agreement the patient was placed under general anesthesia. A well-padded tourniquet was placed the left ankle. And then 20 mL of 0.25% Marcaine was injected as a forefoot block. Then the left foot was prepped and draped in usual manner. The foot was exsanguinated and the tourniquet inflated to 250 mmHg. Attention was directed over the dorsal aspects of the proximal interphalangeal joints of the second third and fourth digits, where a transverse incisions were made over the joints. The incisions were deepened through the subcutaneous layer down to level the joint capsule. The subcu tissue containing the neurovascular structures were then carefully dissected and retracted medially and laterally. A transverse incision was made through the dorsal capsular and tendinous structures over the proximal interphalangeal joint, releasing the collateral ligaments also. The proximal phalanx head was delivered in the surgical wound and then resected with a sagittal saw. A guidewire for the right medical hammertoe implant was used to create barge pilot holes in the proximal phalanx as well as the middle phalanx. The wire was advanced to the distal tip of the digit and a small portion left exposed at the arthrodesis site. A reamer was then used by hand to remove the cartilage and subchondral bone in the base of middle phalanx. The second digit received the larger of the implants were was threaded into place into the middle phalanx and then the arthrodesis site was distracted and the proximal portion of the implant was then inserted in the barge pilot hole in the proximal phalanx and then the impactor used to bring the bone ends together. Fluoroscopy was used to check the positioning in size which were both appropriate. A similar procedure was then performed on the third digit utilizing the same size implant. Of the fourth digit the extra small implant was utilized however the same procedure was performed. Final fluoroscopic imaging showed rectus alignment of all the digits and proper placement of the implants. Of the guidewires were all advanced proximally to engage the proximal arms of the implant and then the K wires were all removed. On the fifth digit to semi-elliptical converging incisions were made over the proximal interphalangeal joint where the axis of the orientation of the incision was distal medial to proximal lateral. The interposing piece of skin was carefully dissected off the underlying subcutaneous tissue. Then a transverse incision was made through the proximal interphalangeal joint releasing the collateral ligaments and extensor tendons. The head of the proximal phalanx was then brought into the surgical field and then resected with a sagittal saw. Once the bone was removed the digit was easily correctable both in rotation and sagittal plane deformity. No fixation was utilized on the fifth digit. All wounds were then thoroughly irrigated with antibiotic saline. The extensor tendon and capsular structures of the fifth digit were repaired with 2-0 Vicryl. And then skin closure on all digits was done with 3-0 nylon. Then small stab incisions were made on the lateral aspects of the long extensor tendons in the forefoot. The blades were turned sideways then advanced deep to the extensor tendon and then the digits on her flexed performing the extensor tenotomies. These incisions were also closed with 3-0 nylon. Jumpstart was applied to all the incisions and a bulky dry dressing applied to the left foot the tourniquet was released and capillary refill return to all digits on the left foot. Anesthesia was reversed and the patient was taken recovery with vital signs stable.
--- NOTE | 2020-08-30 15:44 | XR ---
EXAMINATION TYPE: XR foot limited LT DATE OF EXAM: 08/30/2020 COMPARISON: NONE Impression: Intraoperative limited left foot. Please see intraoperative report same date.
[2020-08-30 15:50] VITALS: RESP 18
--- NOTE | 2020-08-30 16:07 | FL ---
Fluoroscopy HISTORY: Pain 2 seconds fluoroscopy time supplied to the referring clinician. 1 intraoperative C-arm images docume nt the procedure. See dictated report from surgery.
[2020-08-30 16:31] VITALS: BP 155/67; PULSE 78
== END 2020-08-30 16:51 | disposition home health service (06) ==
LOC: OR 10:17
PROVIDERS: ATTEND Podiatrist
DX: M20.42 Other hammer toe(s) (acquired), left foot (principal); Z79.82 Long term (current) use of aspirin; Z79.899 Other long term (current) drug therapy; J45.909 Unspecified asthma, uncomplicated; E03.9 Hypothyroidism, unspecified; H40.9 Unspecified glaucoma; I10 Essential (primary) hypertension; E11.9 Type 2 diabetes mellitus without complications; J98.4 Other disorders of lung; E07.9 Disorder of thyroid, unspecified; G47.33 Obstructive sleep apnea (adult) (pediatric); J44.9 Chronic obstructive pulmonary disease, unspecified; K21.9 Gastro-esophageal reflux disease without esophagitis; Z88.1 Allergy status to other antibiotic agents; Z88.5 Allergy status to narcotic agent; Z88.2 Allergy status to sulfonamides; Z86.718 Personal history of other venous thrombosis and embolism; Z79.01 Long term (current) use of anticoagulants
CPT/HCPCS: 73620; 28285 ×4; J3370; J1100; J2405; J1170

== ENCOUNTER 2020-09-25 17:10 | Inpatient (IN) | payer MEDICARE, OTHER ==
[2020-09-25] MEDS ORDERED: ASPIRIN 81 MG PO STA (17:16)
[2020-09-25] MEDS ORDERED: ONDANSETRON 4 MG/2 ML VIAL IVP STA (17:16)
[2020-09-25] MEDS ORDERED: NITROGLYCERIN OINT 1 INCH/GM PACKET TOPICAL STA (17:16)
--- NOTE | 2020-09-25 17:18 | ED ---
General Adult HPI - General Stated complaint: chest pain Time Seen by Provider: 09/25/20 17:10 Source: patient, RN notes reviewed, old records reviewed - History of Present Illness Initial comments: This is a 70-year-old female who presents emergency department with past medical history significant for some mitral valve prolapse as well as high blood pressure. Patient states in the middle the night last night she started having chest pain it lasted about 20 minutes at a time she's had it multiple times since then. Patient states she has had related shortness of breath as well as a diaphoretic episode when she has the chest pain. Patient received aspirin and nitroglycerin in route it did not seem to help her pain. Patient states she still has chest pain currently. Patient denies any fever chills or cough. Patient denies any abdominal pain. Patient denies any vomiting but states she is nauseated. Patient denies any recent diarrhea. Patient denies headache patient denies numbness weakness. Patient is alert and it is patient denies any lightheadedness. Patient denies any swelling to the legs or calf tenderness. Patient states she had surgery on her left to 2 weeks ago. - Related Data Home Medications Medication Instructions Recorded Confirmed Fluticasone Propionate [Flovent 1 puff INHALATION RT-DAILY PRN 10/02/13 09/25/20 Diskus] Levothyroxine Sodium [Synthroid] 150 mcg PO SUTUTHSA 10/02/13 09/25/20 Levothyroxine Sodium [Synthroid] 175 mcg PO MOWEFR 10/02/13 09/25/20 Montelukast [Singulair] 10 mg PO HS 10/02/13 09/25/20 Nitroglycerin Sl Tabs [Nitrostat] 0.4 mg SL Q5M PRN 10/02/13 09/25/20 Cyclobenzaprine [Flexeril] 10 mg PO BID 05/26/16 09/25/20 Apixaban [Eliquis] 2.5 mg PO BID 09/29/19 09/25/20 Aspirin [Adult Low Dose Aspirin EC] 81 mg PO DAILY 09/29/19 09/25/20 Dicyclomine [Bentyl] 20 mg PO DAILY 09/29/19 09/25/20 Multivit with Calcium,Iron,Min 1 tab PO DAILY 09/29/19 09/25/20 [Women's Multivitamin] Potassium Chloride ER [K-Dur 20] 60 meq PO DAILY 02/09/20 09/25/20 Zinc 50 mg PO DAILY 02/09/20 09/25/20 Loperamide HCl [Imodium A-D] 6 mg PO ONCE PRN 05/15/20 09/25/20 Metoclopramide [Reglan] 10 mg PO DAILY PRN 05/15/20 09/25/20 Potassium Chloride ER [K-Dur 20] 40 meq PO HS 05/15/20 09/25/20 Primidone [Mysoline] 300 mg PO HS 05/15/20 09/25/20 Dicyclomine [Bentyl] 40 mg PO HS 09/25/20 09/25/20 Famotidine 20 mg PO HS 09/25/20 09/25/20 Ofloxacin 0.3% Otic Soln [Floxin 5 drops LEFT EAR HS 09/25/20 09/25/20 0.3% Otic Soln] Sertraline [Zoloft] 50 mg PO DAILY 09/25/20 09/25/20 lisinopriL [Zestril] 2.5 mg PO DAILY 09/25/20 09/25/20 Previous Rx's Medication Instructions Recorded Acetaminophen-Codeine 300-30mg 1 tab PO TID PRN #20 tab 05/22/20 [Tylenol w/codeine #3] Gabapentin [Neurontin] 300 mg PO BID #20 cap 05/22/20 Allergies Allergy/AdvReac Type Severity Reaction Status Date / Time enoxaparin sodium Allergy Unknown RED LUMPS Verified 09/25/20 17:23 [From Lovenox] ON ABDOMEN AT INJECTION SITES erythromycin base Allergy Unknown Rash/Hives Verified 09/25/20 17:23 latex Allergy Unknown Itching Verified 09/25/20 17:23 morphine Allergy Rash/Hives Verified 09/25/20 17:23 Sulfa (Sulfonamide Allergy Anaphylaxis Verified 09/25/20 17:23 Antibiotics) tetracycline [Tetracycline] Allergy Rash/Hives Verified 09/25/20 17:23 adhesive AdvReac Rash/Hives Verified 09/25/20 17:23 Review of Systems ROS Statement: Those systems with pertinent positive or pertinent negative responses have been documented in the HPI. ROS Other: All systems not noted in ROS Statement are negative. Past Medical History Past Medical History: Asthma, COPD, Diabetes Mellitus, Deep Vein Thrombosis (DVT), Eye Disorder, GERD/Reflux, Hypertension, Osteoarthritis (OA), Pneumonia, Skin Disorder, Sleep Apnea/CPAP/BIPAP, Thyroid Disorder Additional Past Medical History / Comment(s): Hx GLAUCOMA, TMJ, RENAL CALCULI, UTIs, DVT X 5 ( STATES CAUSED BY CONTROL PILLS AND HORMONES), USES BI-PAP MACHINE., [place], HAND TREMORS, STATES DIABETES RESOLVED WITH WT LOSS- WATCHES DIET. History of Any Multi-Drug Resistant Organisms: None Reported Past Surgical History: Back Surgery, Bladder Surgery, Breast Surgery, Heart Catheterization, Hysterectomy, Joint Replacement, Orthopedic Surgery, Tonsillectomy Additional Past Surgical History / Comment(s): 04/17/16 arthrotomy removal olecranon spur and loose bodies R elbow. , RIGHT TOTAL HIP, LAPAROSCOPY, BREAST BIOPSY, JULIANNE CARPAL TUNNEL, JULIANNE KNEE REPLACEMENT, JULIANNE ROTATOR CUFF REPAIR, LEFT FOOT SURG. Past Anesthesia/Blood Transfusion Reactions: Postoperative Nausea & Vomiting (PONV) Past Psychological History: No Psychological Hx Reported Additional Psychological History / Comment(s): Pt lives alone. Using walker., uses bus for transportation Smoking Status: Never smoker Past Alcohol Use History: Rare Past Drug Use History: None Reported - Past Family History Mother Family Medical History: Hyperlipidemia, Hypertension Additional Family Medical History / Comment(s): Mother is 91 yrs old. Father Family Medical History: Osteoarthritis (OA) Sister(s) Family Medical History: Pulmonary Embolus General Exam - General Exam Comments Initial Comments: GENERAL: Patient is well-developed and well-nourished. Patient is nontoxic and well- hydrated and is in mild distress. ENT: Neck is soft and supple. No significant lymphadenopathy is noted. Oropharynx is clear. Moist mucous membranes. Neck has full range of motion without eliciting any pain. EYES: The sclera were anicteric and conjunctiva were pink and moist. Extraocular movements were intact and pupils were equal round and reactive to light. Eyelids were unremarkable. PULMONARY: Unlabored respirations. Good breath sounds bilaterally. No audible rales rhonchi or wheezing was noted. CARDIOVASCULAR: There is a regular rate and rhythm without any murmurs gallops or rubs. ABDOMEN: Soft and nontender with normal bowel sounds. No palpable organomegaly was noted. There is no palpable pulsatile mass. SKIN: Skin is clear with no lesions or rashes and otherwise unremarkable. NEUROLOGIC: Patient is alert and oriented x3. Cranial nerves II through XII are grossly intact. Motor and sensory are also intact. Normal speech, volume and content. Symmetrical smile. MUSCULOSKELETAL: Normal extremities with adequate strength and full range of motion. No lower extremity swelling or edema. No calf tenderness. LYMPHATICS: No significant lymphadenopathy is noted PSYCHIATRIC: Normal psychiatric evaluation. Course Vital Signs 09/25/20 09/25/20 17:19 19:10 Temperature 98.2 F Pulse Rate 72 65 Respiratory 18 18 Rate Blood Pressure 149/71 128/68 O2 Sat by Pulse 98 98 Oximetry Medical Decision Making - Medical Decision Making EKG shows normal sinus rhythm at 74 bpm IN interval is 170 QRS is 84 QT interval 392 QTC is 435. Patient's EKG shows no ST segment elevation or depression. I will back into the room to reevaluate the patient she continued to have chest pain. I started on heparin after heparin bolus. Chest x-ray showed no acute abnormality. I spoke with the [facility] accepted the admission I admitted the patient and wrote admitting orders I continued heparin and aspirin and Nitropaste on the floor. I consult cardiology. - Lab Data Result diagrams: 09/25/20 17:26 09/25/20 17:26 Lab Results 09/25/20 09/25/20 09/25/20 Range/Units 17:26 17:26 17:26 WBC 5.6 (3.8-10.6) k/uL RBC 4.18 (3.80-5.40) m/uL Hgb 13.3 (11.4-16.0) gm/dL Hct 38.7 (34.0-46.0) % MCV 92.5 (80.0-100.0) fL MCH 31.9 (25.0-35.0) pg MCHC 34.4 (31.0-37.0) g/dL RDW 12.3 (11.5-15.5) % Plt Count 189 (150-450) k/uL MPV 6.3 Neutrophils % 56 % Lymphocytes % 33 % Monocytes % 7 % Eosinophils % 2 % Basophils % 1 % Neutrophils # 3.1 (1.3-7.7) k/uL Lymphocytes # 1.9 (1.0-4.8) k/uL Monocytes # 0.4 (0-1.0) k/uL Eosinophils # 0.1 (0-0.7) k/uL Basophils # 0.0 (0-0.2) k/uL PT 9.8 (9.0-12.0) sec INR 0.9 (<1.2) APTT 22.0 (22.0-30.0) sec D-Dimer 0.57 (<0.60) mg/L FEU Sodium 136 L (137-145) mmol/L Potassium 4.3 (3.5-5.1) mmol/L Chloride 102 (98-107) mmol/L Carbon Dioxide 28 (22-30) mmol/L Anion Gap 6 mmol/L BUN 11 (7-17) mg/dL Creatinine 0.51 L (0.52-1.04) mg/dL Est GFR (CKD-EPI)AfAm >90 (>60 ml/min/1.73 sqM) Est GFR (CKD-EPI)NonAf >90 (>60 ml/min/1.73 sqM) Glucose 142 H (74-99) mg/dL Calcium 9.2 (8.4-10.2) mg/dL Magnesium 1.6 (1.6-2.3) mg/dL Total Bilirubin 0.1 L (0.2-1.3) mg/dL AST 28 (14-36) U/L ALT 19 (4-34) U/L Alkaline Phosphatase 112 (38-126) U/L Troponin I (0.000-0.034) ng/mL Total Protein 6.2 L (6.3-8.2) g/dL Albumin 3.9 (3.5-5.0) g/dL 09/25/20 Range/Units 17:26 WBC (3.8-10.6) k/uL RBC (3.80-5.40) m/uL Hgb (11.4-16.0) gm/dL Hct (34.0-46.0) % MCV (80.0-100.0) fL MCH (25.0-35.0) pg MCHC (31.0-37.0) g/dL RDW (11.5-15.5) % Plt Count (150-450) k/uL MPV Neutrophils % % Lymphocytes % % Monocytes % % Eosinophils % % Basophils % % Neutrophils # (1.3-7.7) k/uL Lymphocytes # (1.0-4.8) k/uL Monocytes # (0-1.0) k/uL Eosinophils # (0-0.7) k/uL Basophils # (0-0.2) k/uL PT (9.0-12.0) sec INR (<1.2) APTT (22.0-30.0) sec D-Dimer (<0.60) mg/L FEU Sodium (137-145) mmol/L Potassium (3.5-5.1) mmol/L Chloride (98-107) mmol/L Carbon Dioxide (22-30) mmol/L Anion Gap mmol/L BUN (7-17) mg/dL Creatinine (0.52-1.04) mg/dL Est GFR (CKD-EPI)AfAm (>60 ml/min/1.73 sqM) Est GFR (CKD-EPI)NonAf (>60 ml/min/1.73 sqM) Glucose (74-99) mg/dL Calcium (8.4-10.2) mg/dL Magnesium (1.6-2.3) mg/dL Total Bilirubin (0.2-1.3) mg/dL AST (14-36) U/L ALT (4-34) U/L Alkaline Phosphatase (38-126) U/L Troponin I <0.012 (0.000-0.034) ng/mL Total Protein (6.3-8.2) g/dL Albumin (3.5-5.0) g/dL Critical Care Time Critical Care Time: Yes Total Critical Care Time: 35 Disposition Clinical Impression: Unstable angina pectoris Disposition: ADMITTED IP TO THIS HOSP Is patient prescribed a controlled substance at d/c from ED?: No Time of Disposition: 18:34
[2020-09-25 17:53] LABS: ALT 19 U/L (4-34); AST 28 U/L (14-36); African American GFR (CKD) >90 (>60 ml/min/1.73 sqM); Albumin 3.9 g/dL (3.5-5.0); Alkaline Phosphatase 112 U/L (38-126); Anion Gap 6 mmol/L; Blood Urea Nitrogen 11 mg/dL (7-17); Calcium 9.2 mg/dL (8.4-10.2); Carbon Dioxide 28 mmol/L (22-30); Chloride 102 mmol/L (98-107); Glucose 142 mg/dL (74-99); Magnesium 1.6 mg/dL (1.6-2.3); Non-African American GFR(CKD) >90 (>60 ml/min/1.73 sqM); Sodium 136 mmol/L (137-145); Total Bilirubin 0.1 mg/dL (0.2-1.3); Total Protein 6.2 g/dL (6.3-8.2)
[2020-09-25 17:54] LABS: Basophils % (A) 1 %; Eosinophils # (A) 0.1 k/uL (0-0.7); Eosinophils % (A) 2 %; HCT 38.7 % (34.0-46.0); HGB 13.3 gm/dL (11.4-16.0); Lymphocytes # (A) 1.9 k/uL (1.0-4.8); Lymphocytes % (A) 33 %; MCH 31.9 pg (25.0-35.0); MCHC 34.4 g/dL (31.0-37.0); MCV 92.5 fL (80.0-100.0); Mean Platelet Volume 6.3; Monocytes # (A) 0.4 k/uL (0-1.0); Monocytes % (A) 7 %; Neutrophils # (A) 3.1 k/uL (1.3-7.7); Neutrophils % (A) 56 %; Platelet Count 189 k/uL (150-450); RBC 4.18 m/uL (3.80-5.40); RDW 12.3 % (11.5-15.5); WBC 5.6 k/uL (3.8-10.6)
[2020-09-25 18:00] LABS: D-Dimer 0.57 mg/L FEU (<0.60); INR 0.9 (<1.2); Prothrombin Time 9.8 sec (9.0-12.0)
[2020-09-25 18:14] LABS: Potassium 4.3 mmol/L (3.5-5.1)
--- NOTE | 2020-09-25 18:23 | XR ---
EXAMINATION TYPE: XR chest 2V DATE OF EXAM: 09/25/2020 COMPARISON: 02/09/2020 HISTORY: Chest pressure TECHNIQUE: 2 views FINDINGS: There is no heart failure nor confluent pneumonic infiltrate. Costophrenic angles are clear . There are no hilar masses. Bony thorax is intact. IMPRESSION: No active cardiopulmonary disease. Normal heart. No change.
[2020-09-25] MEDS ORDERED: HEPARIN SODIUM 1,000 UN/ML (10ML VL) IV ONE (19:25)
[2020-09-25] MEDS ORDERED: NITROGLYCERIN SL TABS 0.4 MG TAB SUBLINGUAL PRN (19:26)
[2020-09-25] MEDS ORDERED: HEPARIN SOD,PORK IN 0.45% NACL 25,000 UNIT in 0.45% NACL 1 250ML.BAG IV SCH (19:30)
[2020-09-25] MEDS ORDERED: ONDANSETRON 4 MG/2 ML VIAL IVP PRN (21:45)
[2020-09-25] MEDS ORDERED: ACETAMINOPHEN TAB 325 MG TAB PO PRN (21:45)
[2020-09-25] MEDS: MONTELUKAST 10 MG TAB PO SCH (22:44)
[2020-09-25] MEDS: Acetaminophen-Codeine 300-30mg TAB PO PRN (22:44)
[2020-09-25] MEDS: CYCLOBENZAPRINE 10 MG TAB PO SCH (22:45)
[2020-09-25] MEDS: GABAPENTIN 300 MG CAP PO SCH (22:45)
[2020-09-25] MEDS: FAMOTIDINE 20 MG TAB PO SCH (22:45)
[2020-09-25] MEDS: PRIMIDONE 50 MG TAB PO SCH (23:06)
[2020-09-25] MEDS: OFLOXACIN 0.3% OPHTH DROPS 5 ML BOTTLE LEFT EAR SCH (23:07)
[2020-09-25] MEDS: DICYCLOMINE 20 MG TAB PO SCH (23:07)
[2020-09-26] MEDS: NITROGLYCERIN OINT 1 INCH/GM PACKET TOPICAL SCH ×2 (00:43→07:04)
[2020-09-26] MEDS: Acetaminophen-Codeine 300-30mg TAB PO PRN ×3 (05:42→22:06)
[2020-09-26] MEDS: LEVOTHYROXINE 75 MCG TAB PO SCH (05:43)
[2020-09-26 07:44] LABS: Glucose,Whole Blood 103 mg/dL (75-99)
[2020-09-26] MEDS: FLUTICASONE 110 MCG INHALER INHALATION PRN (07:58)
[2020-09-26] MEDS ORDERED: POTASSIUM CHLORIDE ER 20 MEQ TAB.ER PO SCH (09:00)
[2020-09-26] MEDS ORDERED: ASPIRIN 325 MG TAB PO SCH (09:00)
[2020-09-26] MEDS ORDERED: LOPERAMIDE 2 MG CAP PO PRN (09:00)
[2020-09-26] MEDS ORDERED: CAFFEINE CITRATE 60 MG/3 ML VIAL IV PRN (09:18)
[2020-09-26] MEDS ORDERED: AMINOPHYLLINE 500 MG/20 ML VIAL IV PRN (09:18)
[2020-09-26] MEDS ORDERED: REGADENOSON 0.4 MG/5 ML SYRINGE IV PRN (09:18)
[2020-09-26 09:43] LABS: Chol/HDL Ratio 4.53
--- NOTE | 2020-09-26 09:48 | P.CRDCN ---
History of Present Illness History of present illness: HISTORY OF PRESENTING ILLNESS This is a pleasant 70-year-old female past medical history significant for hypertension, dyslipidemia and history of DVT maintained on Eliquis. She f zoraida in the office with Dr. Molina. We have been asked to see in consultation for chest pain. He states on Wednesday night she woke up in the middle of the night with a pain in the midsternal region that radiated down the right arm and into the jaw. It was associated with shortness of breath, nausea with dry heaves, palpitations, diaphroesis and dizziness. The symptoms lasted for about 10-15 minutes. She was able to fall back asleep without difficulty. She woke up yesterday morning feeling back to normal. However, she did have some intermittent pains throughout the day that were not associated with other symptoms, just chest pain. She has a home care nurse coming to the house due to recent surgery on her toe. When she told her how she was feeling she advised calling EMS. On arrival she was having chest pain and EMS gave SL nitro. She has not had any further symptoms since being in the hospital. She underwent cardiac catheterization in 2007 revealing normal coronary arteries. Most recent stress test performed in the office June 2019 was a Lexiscan stress test that was negative for reversible cardiac ischemia. Most recent echocardiogram obtained in the office revealed preserved LV systolic function with ejection fraction 60%, mild MR noted. DIAGNOSTICS EKG reveals sinus mechanism heart rate of 74 with T-wave inversions noted in the inferior leads. Compared to previous EKGs dating all the way back to 2012 this was noted. Telemetry tracings indicate sinus mechanism with no acute arrhythmia or significant pauses. Chest xray negative for an acute cardiopulmonary process. Laboratory reviewed, enzymes negative 3, LDL 105, HDL 38, CBC unremarkable, d- dimer 0.57, sodium 136, potassium 4.3, creatinine 0.51 and magnesium 1.6. Current cardiac medications include Eliquis 2.5 mg twice a day, aspirin 81 mg daily and lisinopril 2.5 mg daily. REVIEW OF SYSTEMS At the time of my exam: CONSTITUTIONAL: Denies fever or chills. CARDIOVASCULAR: Denies chest pain, shortness of breath, orthopnea, PND or palpitations. RESPIRATORY: Denies cough. GASTROINTESTINAL: Denies abdominal pain, diarrhea, constipation, nausea or vomiting. MUSCULOSKELETAL: Denies myalgias. NEUROLOGIC: Denies numbness, tingling, headacbe or weakness. ENDOCRINE: Denies fatigue, weight change, polydipsia or polyurina. GENITOURINARY: Denies burning, hematuria or urgency with micturation. HEMATOLOGIC: Denies history of anemia or bleeding. PHYSICAL EXAMINATION Blood pressure 107/69 heart rate 54 afebrile and maintaining oxygen saturation on room air. CONSTITUTIONAL: No apparent distress. HEENT: Head is normocephalic. Pupils are equal, round. Sclerae anicteric. Mucous membranes of the mouth are moist. No JVD. No carotid bruit. CHEST EXAMINATION: Lungs are clear to auscultation. No chest wall tenderness is noted on palpation or with deep breathing. HEART EXAMINATION: Regular rate and rhythm. S1, S2 heard. No murmurs, gallops or rub. ABDOMEN: Soft, nontender. Positive bowel sounds. EXTREMITIES: 2+ peripheral pulses, no lower extremity edema and no calf tenderness. NEUROLOGIC EXAMINATION: Patient is awake, alert and oriented x3. ASSESSMENT Chest pain Hypertension Dyslipidemia History of DVT maintained on eliquis PLAN Pain is atypical, however persistent. Therefore we will recommend she undergo stress testing as an inpatient. An acute coronary event has been ruled out. Obtain 2D echocardiogram and doppler study to assess cardiac structure and function. Perform Lexiscan stress test to assess for reversible cardiac ischemia. If stress test is negative she can be discharged from a cardiac perspective. Thank you kindly for this consultation. Nurse Practitioner note has been reviewed, I agree with a documented findings and plan of care. Patient was seen and examined. Past Medical History Past Medical History: Asthma, COPD, Diabetes Mellitus, Deep Vein Thrombosis (DVT), Eye Disorder, GERD/Reflux, Hypertension, Osteoarthritis (OA), Pneumonia, Skin Disorder, Sleep Apnea/CPAP/BIPAP, Thyroid Disorder Additional Past Medical History / Comment(s): Hx GLAUCOMA, TMJ, RENAL CALCULI, UTIs, DVT X 5 ( STATES CAUSED BY CONTROL PILLS AND HORMONES), USES BI-PAP MACHINE., [place], HAND TREMORS, STATES DIABETES RESOLVED WITH WT LOSS- WATCHES DIET. History of Any Multi-Drug Resistant Organisms: None Reported Past Surgical History: Back Surgery, Bladder Surgery, Breast Surgery, Heart Catheterization, Hysterectomy, Joint Replacement, Orthopedic Surgery, Tonsillectomy Additional Past Surgical History / Comment(s): 04/17/16 arthrotomy removal olecranon spur and loose bodies R elbow. , RIGHT TOTAL HIP, LAPAROSCOPY, BREAST BIOPSY, JULIANNE CARPAL TUNNEL, JULIANNE KNEE REPLACEMENT, JULIANNE ROTATOR CUFF REPAIR, LEFT FOOT SURG. Past Anesthesia/Blood Transfusion Reactions: Postoperative Nausea & Vomiting (PONV) Past Psychological History: No Psychological Hx Reported Additional Psychological History / Comment(s): Pt lives alone. Using walker., uses bus for transportation Smoking Status: Never smoker Past Alcohol Use History: Rare Past Drug Use History: None Reported - Past Family History Mother Family Medical History: Hyperlipidemia, Hypertension Additional Family Medical History / Comment(s): Mother is 91 yrs old. Father Family Medical History: Osteoarthritis (OA) Sister(s) Family Medical History: Pulmonary Embolus Medications and Allergies Home Medications Medication Instructions Recorded Confirmed Type Fluticasone Propionate [Flovent 1 puff INHALATION RT-DAILY PRN 10/02/13 09/25/20 History Diskus] Levothyroxine Sodium [Synthroid] 150 mcg PO SUTUTHSA 10/02/13 09/25/20 History Levothyroxine Sodium [Synthroid] 175 mcg PO MOWEFR 10/02/13 09/25/20 History Montelukast [Singulair] 10 mg PO HS 10/02/13 09/25/20 History Nitroglycerin Sl Tabs [Nitrostat] 0.4 mg SL Q5M PRN 10/02/13 09/25/20 History Cyclobenzaprine [Flexeril] 10 mg PO BID 05/26/16 09/25/20 History Apixaban [Eliquis] 2.5 mg PO BID 09/29/19 09/25/20 History Aspirin [Adult Low Dose Aspirin EC] 81 mg PO DAILY 09/29/19 09/25/20 History Dicyclomine [Bentyl] 20 mg PO DAILY 09/29/19 09/25/20 History Multivit with Calcium,Iron,Min 1 tab PO DAILY 09/29/19 09/25/20 History [Women's Multivitamin] Potassium Chloride ER [K-Dur 20] 60 meq PO DAILY 02/09/20 09/25/20 History Zinc 50 mg PO DAILY 02/09/20 09/25/20 History Loperamide HCl [Imodium A-D] 6 mg PO ONCE PRN 05/15/20 09/25/20 History Metoclopramide [Reglan] 10 mg PO DAILY PRN 05/15/20 09/25/20 History Potassium Chloride ER [K-Dur 20] 40 meq PO HS 05/15/20 09/25/20 History Primidone [Mysoline] 300 mg PO HS 05/15/20 09/25/20 History Acetaminophen-Codeine 300-30mg 1 tab PO TID PRN #20 tab 05/22/20 09/25/20 Rx [Tylenol w/codeine #3] Gabapentin [Neurontin] 300 mg PO BID #20 cap 05/22/20 09/25/20 Rx Dicyclomine [Bentyl] 40 mg PO HS 09/25/20 09/25/20 History Famotidine 20 mg PO HS 09/25/20 09/25/20 History Ofloxacin 0.3% Otic Soln [Floxin 5 drops LEFT EAR HS 09/25/20 09/25/20 History 0.3% Otic Soln] Sertraline [Zoloft] 50 mg PO DAILY 09/25/20 09/25/20 History lisinopriL [Zestril] 2.5 mg PO DAILY 09/25/20 09/25/20 History Allergies Allergy/AdvReac Type Severity Reaction Status Date / Time enoxaparin sodium Allergy Unknown RED LUMPS Verified 09/25/20 17:23 [From Lovenox] ON ABDOMEN AT INJECTION SITES erythromycin base Allergy Unknown Rash/Hives Verified 09/25/20 17:23 latex Allergy Unknown Itching Verified 09/25/20 17:23 morphine Allergy Rash/Hives Verified 09/25/20 17:23 Sulfa (Sulfonamide Allergy Anaphylaxis Verified 09/25/20 17:23 Antibiotics) tetracycline [Tetracycline] Allergy Rash/Hives Verified 09/25/20 17:23 adhesive AdvReac Rash/Hives Verified 09/25/20 17:23 Physical Exam Vitals: Vital Signs Temp Pulse Pulse Resp BP BP Pulse Ox 09/26/20 01:08 97.7 F 63 14 101/57 98 09/26/20 01:05 64 18 09/25/20 22:00 18 09/25/20 20:27 65 18 129/66 98 09/25/20 20:04 97.4 F L 64 14 152/78 98 09/25/20 19:10 65 18 128/68 98 09/25/20 17:19 98.2 F 72 18 149/71 98 Intake and Output 09/25/20 09/26/20 09/26/20 22:59 06:59 14:59 Other: Voiding Method Toilet Toilet # Voids 1 1 Weight 68.946 kg Results 09/25/20 17:26 09/25/20 17:26 Cardiac Enzymes 09/25/20 09/25/20 09/25/20 Range/Units 17:26 17:26 20:45 AST 28 (14-36) U/L Troponin I <0.012 <0.012 (0.000-0.034) ng/mL 09/25/20 Range/Units 23:39 AST (14-36) U/L Troponin I <0.012 (0.000-0.034) ng/mL Coagulation 09/25/20 09/26/20 Range/Units 17:26 02:18 PT 9.8 (9.0-12.0) sec APTT 22.0 59.5 H (22.0-30.0) sec CBC 09/25/20 Range/Units 17:26 WBC 5.6 (3.8-10.6) k/uL RBC 4.18 (3.80-5.40) m/uL Hgb 13.3 (11.4-16.0) gm/dL Hct 38.7 (34.0-46.0) % Plt Count 189 (150-450) k/uL Comprehensive Metabolic Panel 09/25/20 Range/Units 17:26 Sodium 136 L (137-145) mmol/L Potassium 4.3 (3.5-5.1) mmol/L Chloride 102 (98-107) mmol/L Carbon Dioxide 28 (22-30) mmol/L BUN 11 (7-17) mg/dL Creatinine 0.51 L (0.52-1.04) mg/dL Glucose 142 H (74-99) mg/dL Calcium 9.2 (8.4-10.2) mg/dL AST 28 (14-36) U/L ALT 19 (4-34) U/L Alkaline Phosphatase 112 (38-126) U/L Total Protein 6.2 L (6.3-8.2) g/dL Albumin 3.9 (3.5-5.0) g/dL Current Medications Generic Name Dose Route Start Last Admin Trade Name Freq PRN Reason Stop Dose Admin Acetaminophen 650 mg 09/25/20 21:45 Acetaminophen Tab 325 Mg Tab PO Q6HR PRN Fever and/ or Pain Acetaminophen/Codeine Phosphate 1 each 09/25/20 22:00 09/26/20 05:42 Acetaminophen-Codeine 300-30mg Tab PO 1 each TID PRN Administration Pain Aspirin 325 mg 09/26/20 09:00 09/26/20 07:24 Aspirin 325 Mg Tab PO Not Given DAILY RIVER Cyclobenzaprine HCl 10 mg 09/25/20 22:00 09/25/20 22:45 Cyclobenzaprine 10 Mg Tab PO 10 mg BID RIVER Administration Dicyclomine HCl 20 mg 09/26/20 09:00 Dicyclomine 20 Mg Tab PO DAILY RIVER Dicyclomine HCl 40 mg 09/25/20 22:00 09/25/20 23:07 Dicyclomine 20 Mg Tab PO 40 mg HS RIVER Administration Famotidine 20 mg 09/25/20 22:00 09/25/20 22:45 Famotidine 20 Mg Tab PO 20 mg HS RIVER Administration Fluticasone Propionate 1 puff 09/26/20 08:00 Fluticasone 110 Mcg Inhaler INHALATION RT-DAILY PRN Shortness Of Breath Gabapentin 300 mg 09/25/20 22:00 09/25/20 22:45 Gabapentin 300 Mg Cap PO 300 mg BID RIVER Administration Heparin Sodium/Sodium Chloride 250 mls @ 8.274 mls/hr 09/25/20 19:30 09/25/20 20:24 25,000 unit/ Sodium Chloride IV 12 units/kg/hr .Q24H RIVER 8.274 mls/hr Administration Protocol 12 UNITS/KG/HR Levothyroxine Sodium 150 mcg 09/26/20 06:30 09/26/20 05:43 Levothyroxine 75 Mcg Tab PO 150 mcg [id number] RIVER Administration Levothyroxine Sodium 176 mcg 09/27/20 06:30 Levothyroxine 88 Mcg Tab PO [id number] RIVER Lisinopril 2.5 mg 09/26/20 09:00 Lisinopril 2.5 Mg Tab PO DAILY RIVER Loperamide HCl 6 mg 09/26/20 09:00 Loperamide 2 Mg Cap PO ONCE PRN Diarrhea Montelukast Sodium 10 mg 09/25/20 22:00 09/25/20 22:44 Montelukast 10 Mg Tab PO 10 mg HS RIVER Administration Multivi/Iron Carb/Fe Sulf/FA/Prenat 1 each 09/26/20 09:00 [id number] Acid 1 Each Cap PO DAILY RIVER Nitroglycerin 0.4 mg 09/25/20 19:26 Nitroglycerin Sl Tabs 0.4 Mg Tab SUBLINGUAL Q5M PRN Chest Pain Nitroglycerin 1 inch 09/26/20 00:00 09/26/20 07:04 Nitroglycerin Oint 1 Inch/Gm Packet TOPICAL Not Given Q6HR RIVER Ofloxacin 5 drops 09/25/20 23:00 09/25/20 23:07 Ofloxacin 0.3% Ophth Drops 5 Ml Bottle LEFT EAR 5 drops HS RIVER Administration Ondansetron HCl 4 mg 09/25/20 21:45 09/25/20 22:45 Ondansetron 4 Mg/2 Ml Vial IVP 4 mg Q6HR PRN Administration Nausea And Vomiting Potassium Chloride 60 meq 09/26/20 09:00 Potassium Chloride Er 20 Meq Tab.Er PO DAILY RIVER Primidone 300 mg 09/25/20 22:30 09/25/20 23:06 Primidone 50 Mg Tab PO 300 mg HS RIVER Administration Sertraline HCl 50 mg 09/26/20 09:00 Sertraline 50 Mg Tab PO DAILY RIVER Zinc Sulfate 220 mg 09/26/20 09:00 Zinc Sulfate 220 Mg Cap PO DAILY RIVER Intake and Output 09/25/20 09/26/20 09/26/20 22:59 06:59 14:59 Other: Voiding Method Toilet Toilet # Voids 1 1 Weight 68.946 kg 09/25/20 17:26 09/25/20 17:26
[2020-09-26] MEDS: PRENATAL VIT-IRON-FOLIC ACID 1 EACH CAP PO SCH ×2 (10:36→14:29)
[2020-09-26] MEDS: CYCLOBENZAPRINE 10 MG TAB PO SCH (10:36)
[2020-09-26] MEDS: SERTRALINE 50 MG TAB PO SCH ×2 (10:36→14:28)
[2020-09-26] MEDS: GABAPENTIN 300 MG CAP PO SCH ×3 (10:36→20:05)
[2020-09-26] MEDS: DICYCLOMINE 20 MG TAB PO SCH ×3 (10:36→20:06)
[2020-09-26] MEDS: ZINC SULFATE 220 MG CAP PO SCH ×2 (10:37→14:29)
[2020-09-26] MEDS ORDERED: MAGNESIUM SULFATE-D5W PMX 1 GM in DEXTROSE/WATER 1 100ML.BAG IVPB ONE (11:00)
--- NOTE | 2020-09-26 12:27 | P.HPIM ---
History of Present Illness Patient is a 70-year-old female came in with compensative chest pain in the midsternal area radiating to the right arm as well as the right side of the jaw associated shortness of breath nausea palpitations diaphoresis and dizziness. Lasted for 10-15 minutes. Patient is drowsy most of the time as per the nursing staff during this hospital physician. Patient is still complaining of 9.5/10 chest pain although patient is fairly comfortable whenever evaluated the patient patient just pain is nonpleuritic not associated with food. Patient the had a recent stress test in month of June which she did not show any new inducible ischemia. EKG did not show any significant abnormality except for some tachycardia T-wave inversions in inferior leads compared to previous EKGs. Chest x-ray was within normal murmurs. Troponins were negative. Patient also comparing of bilateral earaches and does have tenderness in the bilateral mastoid area and patient was told she has redness in the left ear by her primary. Care physician unfortunately I can't find any otoscope to examine her years. He'll also complaining of some cough REVIEW OF SYSTEMS: CONSTITUTIONAL: No fever, no malaise, no fatigue. HEENT: No recent visual problems or hearing problems. Denied any sore throat. CARDIOVASCULAR: No orthopnea, PND, no palpitations, no syncope. PULMONARY: No shortness of breath, no hemoptysis. GASTROINTESTINAL: No diarrhea, no nausea, no vomiting, no abdominal pain. NEUROLOGICAL: No headaches, no weakness, no numbness. HEMATOLOGICAL: Denies any bleeding or petechiae. GENITOURINARY: Denies any burning micturition, frequency, or urgency. MUSCULOSKELETAL/RHEUMATOLOGICAL: Denies any joint pain, swelling, or any muscle pain. ENDOCRINE: Denies any polyuria or polydipsia. The rest of the 14-point review of systems is negative. PHYSICAL EXAMINATION: GENERAL: The patient is alert and oriented x3, not in any acute distress. Well developed, well nourished. HEENT: Pupils are round and equally reacting to light. EOMI. No scleral icterus. No conjunctival pallor. Normocephalic, atraumatic. No pharyngeal erythema. No thyromegaly. CARDIOVASCULAR: S1 and S2 present. No murmurs, rubs, or gallops. PULMONARY: Expiratory wheezing bilaterally ABDOMEN: Soft, nontender, nondistended, normoactive bowel sounds. No palpable organomegaly. MUSCULOSKELETAL: No joint swelling or deformity. EXTREMITIES: No cyanosis, clubbing, or pedal edema. NEUROLOGICAL: Gross neurological examination did not reveal any focal deficits. SKIN: No rashes. -Chest pain we will rule out acute coronary syndromes, patient will undergo st resses if that's negative patient will be discharged today etiology of her chest pain is not clear can be musculoskeletal. -Hypertension -hyperlipidemia -History of DVT presently on Eliquis which will be continued -Rule out pulmonary embolism -Asthma with acute exacerbation patient does have wheezing on exam and inhaled steroids and inhalational treatments. -Obstructive sleep apnea uses CPAP machine at home hypothyroidism Gastroesophageal reflux disease -Type 2 diabetes mellitus -Acute otitis media: Mostly viral but patient is having symptoms going on for some time and is having tenderness will ambulate really give the patient 3 days of antibiotics. -Chronic back pain. Patient will be discharged if the stress test is negative Past Medical History Past Medical History: Asthma, COPD, Diabetes Mellitus, Deep Vein Thrombosis (DVT), Eye Disorder, GERD/Reflux, Hypertension, Osteoarthritis (OA), Pneumonia, Skin Disorder, Sleep Apnea/CPAP/BIPAP, Thyroid Disorder Additional Past Medical History / Comment(s): Hx GLAUCOMA, TMJ, RENAL CALCULI, UTIs, DVT X 5 ( STATES CAUSED BY CONTROL PILLS AND HORMONES), USES BI-PAP MACHINE., [place], HAND TREMORS, STATES DIABETES RESOLVED WITH WT LOSS- WATCHES DIET. History of Any Multi-Drug Resistant Organisms: None Reported Past Surgical History: Back Surgery, Bladder Surgery, Breast Surgery, Heart Catheterization, Hysterectomy, Joint Replacement, Orthopedic Surgery, Tonsillectomy Additional Past Surgical History / Comment(s): 04/17/16 arthrotomy removal olecranon spur and loose bodies R elbow. , RIGHT TOTAL HIP, LAPAROSCOPY, BREAST BIOPSY, JULIANNE CARPAL TUNNEL, JULIANNE KNEE REPLACEMENT, JULIANNE ROTATOR CUFF REPAIR, LEFT FOOT SURG. Past Anesthesia/Blood Transfusion Reactions: Postoperative Nausea & Vomiting (PONV) Past Psychological History: No Psychological Hx Reported Additional Psychological History / Comment(s): Pt lives alone. Using walker., uses bus for transportation Smoking Status: Never smoker Past Alcohol Use History: Rare Past Drug Use History: None Reported - Past Family History Mother Family Medical History: Hyperlipidemia, Hypertension Additional Family Medical History / Comment(s): Mother is 91 yrs old. Father Family Medical History: Osteoarthritis (OA) Sister(s) Family Medical History: Pulmonary Embolus Medications and Allergies Home Medications Medication Instructions Recorded Confirmed Type Fluticasone Propionate [Flovent 1 puff INHALATION RT-DAILY PRN 10/02/13 09/25/20 History Diskus] Levothyroxine Sodium [Synthroid] 150 mcg PO SUTUTHSA 10/02/13 09/25/20 History Levothyroxine Sodium [Synthroid] 175 mcg PO MOWEFR 10/02/13 09/25/20 History Montelukast [Singulair] 10 mg PO HS 10/02/13 09/25/20 History Nitroglycerin Sl Tabs [Nitrostat] 0.4 mg SL Q5M PRN 10/02/13 09/25/20 History Cyclobenzaprine [Flexeril] 10 mg PO BID 05/26/16 09/25/20 History Apixaban [Eliquis] 2.5 mg PO BID 09/29/19 09/25/20 History Aspirin [Adult Low Dose Aspirin EC] 81 mg PO DAILY 09/29/19 09/25/20 History Dicyclomine [Bentyl] 20 mg PO DAILY 09/29/19 09/25/20 History Multivit with Calcium,Iron,Min 1 tab PO DAILY 09/29/19 09/25/20 History [Women's Multivitamin] Potassium Chloride ER [K-Dur 20] 60 meq PO DAILY 02/09/20 09/25/20 History Zinc 50 mg PO DAILY 02/09/20 09/25/20 History Loperamide HCl [Imodium A-D] 6 mg PO ONCE PRN 05/15/20 09/25/20 History Metoclopramide [Reglan] 10 mg PO DAILY PRN 05/15/20 09/25/20 History Potassium Chloride ER [K-Dur 20] 40 meq PO HS 05/15/20 09/25/20 History Primidone [Mysoline] 300 mg PO HS 05/15/20 09/25/20 History Acetaminophen-Codeine 300-30mg 1 tab PO TID PRN #20 tab 05/22/20 09/25/20 Rx [Tylenol w/codeine #3] Gabapentin [Neurontin] 300 mg PO BID #20 cap 05/22/20 09/25/20 Rx Dicyclomine [Bentyl] 40 mg PO HS 09/25/20 09/25/20 History Famotidine 20 mg PO HS 09/25/20 09/25/20 History Ofloxacin 0.3% Otic Soln [Floxin 5 drops LEFT EAR HS 09/25/20 09/25/20 History 0.3% Otic Soln] Sertraline [Zoloft] 50 mg PO DAILY 09/25/20 09/25/20 History lisinopriL [Zestril] 2.5 mg PO DAILY 09/25/20 09/25/20 History Allergies Allergy/AdvReac Type Severity Reaction Status Date / Time enoxaparin sodium Allergy Unknown RED LUMPS Verified 09/25/20 17:23 [From Lovenox] ON ABDOMEN AT INJECTION SITES erythromycin base Allergy Unknown Rash/Hives Verified 09/25/20 17:23 latex Allergy Unknown Itching Verified 09/25/20 17:23 morphine Allergy Rash/Hives Verified 09/25/20 17:23 Sulfa (Sulfonamide Allergy Anaphylaxis Verified 09/25/20 17:23 Antibiotics) tetracycline [Tetracycline] Allergy Rash/Hives Verified 09/25/20 17:23 adhesive AdvReac Rash/Hives Verified 09/25/20 17:23 Physical Exam Vitals: Vital Signs Temp Pulse Pulse Resp BP BP Pulse Ox 09/26/20 07:00 98.0 F 54 L 16 107/69 96 09/26/20 01:08 97.7 F 63 14 101/57 98 09/26/20 01:05 64 18 09/25/20 22:00 18 09/25/20 20:27 65 18 129/66 98 09/25/20 20:04 97.4 F L 64 14 152/78 98 09/25/20 19:10 65 18 128/68 98 09/25/20 17:19 98.2 F 72 18 149/71 98 Intake and Output 09/25/20 09/26/20 09/26/20 22:59 06:59 14:59 Intake Total 0 Balance 0 Intake: Oral 0 Other: Voiding Method Toilet Toilet # Voids 1 1 Weight 68.946 kg Results CBC & Chem 7: 09/25/20 17:26 09/25/20 17:26 Labs: Abnormal Lab Results - Last 24 Hours (Table) 09/25/20 09/26/20 09/26/20 Range/Units 17:26 02:18 02:18 APTT 59.5 H (22.0-30.0) sec Sodium 136 L (137-145) mmol/L Creatinine 0.51 L (0.52-1.04) mg/dL Glucose 142 H (74-99) mg/dL POC Glucose (mg/dL) (75-99) mg/dL Total Bilirubin 0.1 L (0.2-1.3) mg/dL Total Protein 6.2 L (6.3-8.2) g/dL HDL Cholesterol 38.0 L (40.0-60.0) mg/dL 09/26/20 Range/Units 07:42 APTT (22.0-30.0) sec Sodium (137-145) mmol/L Creatinine (0.52-1.04) mg/dL Glucose (74-99) mg/dL POC Glucose (mg/dL) 103 H (75-99) mg/dL Total Bilirubin (0.2-1.3) mg/dL Total Protein (6.3-8.2) g/dL HDL Cholesterol (40.0-60.0) mg/dL Thrombosis Risk Factor Assmnt - Choose All That Apply Any of the Below Risk Factors Present?: Yes Each Factor Represents 1 point: Obesity (BMI >25), Swollen legs (current) Other Risk Factors: Yes Each Risk Factor Represents 2 Points: Age 61-74 years Each Risk Factor Represents 3 Points: History of DVT/PE Thrombosis Risk Factor Assessment Total Risk Factor Score: 7 Thrombosis Risk Factor Assessment Level: High Risk
--- NOTE | 2020-09-26 12:33 | P.DS ---
Providers Date of admission: 09/25/20 19:26 Attending physician: Serene Cui Consults: 09/25/20 19:26 Consult Physician Urgent Consulting Provider: [facility] Consult Reason/Comments: Unstable angina Do you want consulting provider notified?: Yes Primary care physician: Josy Man [facility] Course: Refer to [facility] for further details Plan - Discharge Summary Discharge Rx Participant: No New Discharge Prescriptions: New Amoxic-Pot Clav 875-125Mg [Augmentin 875-125] 1 tab PO Q12HR 3 Days #2 tab Cyclobenzaprine [Flexeril] 5 mg PO BID PRN tab PRN Reason: Muscle Spasm Continue Fluticasone Propionate [Flovent Diskus] 1 puff INHALATION RT-DAILY PRN PRN Reason: Shortness Of Breath Montelukast [Singulair] 10 mg PO HS Levothyroxine Sodium [Synthroid] 150 mcg PO SUTUTHSA Levothyroxine Sodium [Synthroid] 175 mcg PO MOWEFR Nitroglycerin Sl Tabs [Nitrostat] 0.4 mg SL Q5M PRN PRN Reason: chest pain Dicyclomine [Bentyl] 20 mg PO DAILY Apixaban [Eliquis] 2.5 mg PO BID Multivit with Calcium,Iron,Min [Women's Multivitamin] 1 tab PO DAILY Aspirin [Adult Low Dose Aspirin EC] 81 mg PO DAILY Potassium Chloride ER [K-Dur 20] 60 meq PO DAILY Zinc 50 mg PO DAILY Potassium Chloride ER [K-Dur 20] 40 meq PO HS Primidone [Mysoline] 300 mg PO HS Loperamide HCl [Imodium A-D] 6 mg PO ONCE PRN PRN Reason: Diarrhea Metoclopramide [Reglan] 10 mg PO DAILY PRN PRN Reason: Nausea Gabapentin [Neurontin] 300 mg PO BID #20 cap Acetaminophen-Codeine 300-30mg [Tylenol w/codeine #3] 1 tab PO TID PRN #20 tab PRN Reason: Pain Sertraline [Zoloft] 50 mg PO DAILY Ofloxacin 0.3% Otic Soln [Floxin 0.3% Otic Soln] 5 drops LEFT EAR HS Famotidine 20 mg PO HS Dicyclomine [Bentyl] 40 mg PO HS Discontinued Cyclobenzaprine [Flexeril] 10 mg PO BID lisinopriL [Zestril] 2.5 mg PO DAILY Discharge Medication List Fluticasone Propionate [Flovent Diskus] 1 puff INHALATION RT-DAILY PRN 10/02/13 [History] Levothyroxine Sodium [Synthroid] 150 mcg PO SUTUTHSA 10/02/13 [History] Levothyroxine Sodium [Synthroid] 175 mcg PO MOWEFR 10/02/13 [History] Montelukast [Singulair] 10 mg PO HS 10/02/13 [History] Nitroglycerin Sl Tabs [Nitrostat] 0.4 mg SL Q5M PRN 10/02/13 [History] Apixaban [Eliquis] 2.5 mg PO BID 09/29/19 [History] Aspirin [Adult Low Dose Aspirin EC] 81 mg PO DAILY 09/29/19 [History] Dicyclomine [Bentyl] 20 mg PO DAILY 09/29/19 [History] Multivit with Calcium,Iron,Min [Women's Multivitamin] 1 tab PO DAILY 09/29/19 [History] Potassium Chloride ER [K-Dur 20] 60 meq PO DAILY 02/09/20 [History] Zinc 50 mg PO DAILY 02/09/20 [History] Loperamide HCl [Imodium A-D] 6 mg PO ONCE PRN 05/15/20 [History] Metoclopramide [Reglan] 10 mg PO DAILY PRN 05/15/20 [History] Potassium Chloride ER [K-Dur 20] 40 meq PO HS 05/15/20 [History] Primidone [Mysoline] 300 mg PO HS 05/15/20 [History] Acetaminophen-Codeine 300-30mg [Tylenol w/codeine #3] 1 tab PO TID PRN #20 tab 05/22/20 [Rx] Gabapentin [Neurontin] 300 mg PO BID #20 cap 05/22/20 [Rx] Dicyclomine [Bentyl] 40 mg PO HS 09/25/20 [History] Famotidine 20 mg PO HS 09/25/20 [History] Ofloxacin 0.3% Otic Soln [Floxin 0.3% Otic Soln] 5 drops LEFT EAR HS 09/25/20 [History] Sertraline [Zoloft] 50 mg PO DAILY 09/25/20 [History] Amoxic-Pot Clav 875-125Mg [Augmentin 875-125] 1 tab PO Q12HR 3 Days #2 tab 09/26/20 [Rx] Cyclobenzaprine [Flexeril] 5 mg PO BID PRN tab 09/26/20 [Rx] Follow up Appointment(s)/Referral(s): Josy Man MD [Primary Care Provider] - 1-2 days
--- NOTE | 2020-09-26 12:50 | ECHOF ---
Referral Reason:cp, sob MEASUREMENTS -------- HEIGHT: 165.1 cm WEIGHT: 68.9 kg BP: RVIDd: 2.7 cm (< 3.3) IVSd: 1.3 cm (0.6 - 1.1) LVIDd: 4.1 cm (3.9 - 5.3) LVPWd: 1.3 cm (0.6 - 1.1) IVSs: 1.6 cm LVIDs: 3.0 cm LVPWs: 1.3 cm LAESV Index (A-L): 24.59 ml/m Ao Diam: 3.2 cm (2.0 - 3.7) AV Cusp: 1.9 cm (1.5 - 2.6) LA Diam: 3.4 cm (2.7 - 3.8) MV EXCURSION: 22.560 mm (> 18.000) MV EF SLOPE: 114 mm/s (70 - 150) EPSS: 0.3 cm MV E Naresh: 0.81 m/s MV DecT: 196 ms MV A Naresh: 0.81 m/s MV E/A Ratio: 1.00 RAP: 5.00 mmHg RVSP: 31.76 mmHg FINDINGS -------- Sinus rhythm. This was a technically good study. The left ventricular size is normal. There is mild concentric left ventricular hypertrophy. Overa ll left ventricular systolic function is normal with, an EF between 55 - 60 %. The right ventricle is normal in size. Normal LA size by volume 22+/-6 ml/m2. The right atrial size is normal. The aortic valve is trileaflet, and appears structurally normal. No aortic stenosis or regurgitation. Mild mitral regurgitation is present. Mild tricuspid regurgitation present. The right ventricular systolic pressure, as measured by Doppl er, is 31.76mmHg. There is no pulmonic regurgitation present. The aortic root size is normal. There is no pericardial effusion. CONCLUSIONS -------- 1. The left ventricular size is normal. 2. There is mild concentric left ventricular hypertrophy. 3. Overall left ventricular systolic function is normal with, an EF between 55 - 60 %. 4. The right ventricle is normal in size. 5. Normal LA size by volume 22+/-6 ml/m2. 6. The right atrial size is normal. 7. The aortic valve is trileaflet, and appears structurally normal. No aortic stenosis or regurgitati on. 8. Mild mitral regurgitation is present. 9. Mild tricuspid regurgitation present. 10. The right ventricular systolic pressure, as measured by Doppler, is 31.76mmHg. 11. There is no pulmonic regurgitation present. 12. The aortic root size is normal. 13. There is no pericardial effusion. MICRO COMPUTER SPECIALIST: Jacqui Muniz RDCS
--- NOTE | 2020-09-26 14:20 | NM ---
EXAMINATION TYPE: NM stress lexiscan cardiolite DATE OF EXAM: 09/26/2020 COMPARISON: NONE HISTORY: Chest pain TECHNIQUE: After the intravenous administration of 9.8 mCi Tc 99m Sestamibi - Cardiolite resting SPE CT images acquired 45 minutes post injection. The patient received 0.4mg Lexiscan, 25.2 mCi Tc 99m Sestamibi - Stress images obtained [address] injection FINDINGS: Review of stress and rest SPECT images demonstrates decreased septal uptake towards the base of the h eart on stress as compared to rest images, possibly lateral wall towards the base. Gated analysis sh ows normal wall motion with an estimated left ventricular ejection fraction of 65 %. IMPRESSION: Pharmacologically induced left ventricular myocardial ischemia, consider echocardiographic correlatio n for elevated ejection fraction
[2020-09-26] MEDS ORDERED: ALPRAZolam 0.25 MG TAB PO PRN (15:43)
[2020-09-26] MEDS ORDERED: NITROGLYCERIN SL TABS 0.4 MG TAB SUBLINGUAL PRN (15:43)
[2020-09-26] MEDS ORDERED: ASPIRIN 325 MG TAB PO STA (15:43)
[2020-09-26] MEDS ORDERED: SODIUM CHLORIDE 0.9% 1,000 ML in EMPTY BAG 1 BAG IV ONE (15:43)
[2020-09-26] MEDS ORDERED: ATORVASTATIN 80 MG TAB PO STA (15:43)
[2020-09-26 16:10] LABS: Glucose,Whole Blood 111 mg/dL (75-99)
[2020-09-26] MEDS: CYCLOBENZAPRINE 5 MG TAB PO PRN (17:19)
[2020-09-26] MEDS: OFLOXACIN 0.3% OPHTH DROPS 5 ML BOTTLE LEFT EAR SCH (20:05)
[2020-09-26] MEDS: MONTELUKAST 10 MG TAB PO SCH (20:05)
[2020-09-26] MEDS: FAMOTIDINE 20 MG TAB PO SCH (20:05)
[2020-09-26] MEDS: PRIMIDONE 50 MG TAB PO SCH (20:07)
[2020-09-26 20:16] LABS: Glucose,Whole Blood 157 mg/dL (75-99)
[2020-09-26] MEDS: BUDESONIDE 0.5 MG/2 ML NEBU INHALATION SCH (20:27)
[2020-09-26] MEDS: ALPRAZolam 0.5 MG TAB PO PRN (23:37)
[2020-09-27] MEDS ORDERED: LEVOTHYROXINE 88 MCG TAB PO SCH (06:30)
[2020-09-27] MEDS ORDERED: HEPARIN SODIUM,PORCINE 2,500 UNIT in SODIUM CHLORIDE 0.9% 250 ML IRRIGATION PRN (07:00)
[2020-09-27] MEDS ORDERED: HEPARIN SODIUM,PORCINE 10,000 UNIT in SODIUM CHLORIDE 0.9% 1,000 ML IRRIGATION PRN (07:00)
[2020-09-27 07:29] LABS: Glucose,Whole Blood 91 mg/dL (75-99)
[2020-09-27] MEDS: FLUTICASONE 110 MCG INHALER INHALATION PRN (08:03)
[2020-09-27] MEDS: BUDESONIDE 0.5 MG/2 ML NEBU INHALATION SCH ×2 (08:04→21:56)
[2020-09-27] MEDS ORDERED: ATORVASTATIN 80 MG TAB PO STA (08:30)
[2020-09-27] MEDS ORDERED: ASPIRIN 325 MG TAB PO SCH (09:00)
[2020-09-27] MEDS: PRENATAL VIT-IRON-FOLIC ACID 1 EACH CAP PO SCH (09:00)
[2020-09-27] MEDS: SERTRALINE 50 MG TAB PO SCH (09:00)
[2020-09-27] MEDS: GABAPENTIN 300 MG CAP PO SCH ×2 (09:00→20:35)
[2020-09-27] MEDS ORDERED: ASPIRIN 81 MG PO SCH (09:00)
[2020-09-27] MEDS: ZINC SULFATE 220 MG CAP PO SCH (09:01)
[2020-09-27] MEDS: DICYCLOMINE 20 MG TAB PO SCH ×2 (09:01→20:35)
[2020-09-27] MEDS: Acetaminophen-Codeine 300-30mg TAB PO PRN ×2 (09:12→19:30)
--- NOTE | 2020-09-27 11:19 | P.STRESS ---
- Stress Test Note Stress Test Results/Findings: Exam Performed: NM stress lexiscan cardiolite Exam Date: 09/26/20 Reason for Exam: [place] Height: 5 ft 5 in Weight: 68.95 kg Protocol: LEXISCAN CARDIOLITE Stage: NA Duration of Exercise: NA Resting Heart Rate: 54 Resting Blood Pressure: 119/70 Maximum Achieved Heart Rate: 71 Maximum Achieved Blood Pressure: 119/70 85% PMHR: 127 100% PMHR: 149 METS: NA Technologist Comment: Stress Test Results/Findings: At baseline EKG showed normal sinus rhythm, normal axis, nonspecific T-wave inversions V4 through V6, 3. Patient recieved IV infusion of Lexiscan 0.4mg and at peak infusion EKG showed no significant change from baseline. Conclusions: 1. Nondiagnostic stress EKG portion given baseline abnormal EKG. 2. Nuclear imaging to be reported separately.
[2020-09-27 11:27] LABS: Glucose,Whole Blood 145 mg/dL (75-99)
[2020-09-27] MEDS ORDERED: LIDOCAINE 1% INJ 10MG/ML (20 ML MDV) ONE (12:53)
[2020-09-27] MEDS ORDERED: VERAPAMIL 2.5 MG/ML 2 ML AMP ONE (12:53)
[2020-09-27] MEDS ORDERED: IV FLUID CONTINUATION 1,000 ML IV ONE (13:00)
[2020-09-27] MEDS ORDERED: fentaNYL (PF) 50 MCG/ML 2 ML AMP ONE (13:01)
[2020-09-27] MEDS ORDERED: MIDAZOLAM 2 MG/2 ML VIAL IV ONE (13:25)
[2020-09-27] MEDS ORDERED: fentaNYL (PF) 50 MCG/ML 2 ML AMP IV ONE (13:25)
[2020-09-27] MEDS ORDERED: LIDOCAINE 1% INJ 10MG/ML (20 ML MDV) SQ ONE (13:28)
[2020-09-27] MEDS ORDERED: VERAPAMIL SYRINGE (5 MG/10 ML) INTRAARTER ONE (13:30)
[2020-09-27] MEDS ORDERED: IOPAMIDOL-370 125ML BTL INJ ONE (13:38)
[2020-09-27] MEDS ORDERED: RX INFO: IV CONTRAST WAS GIVEN 1 EACH MISC MISCELLANE PRN (13:42)
[2020-09-27] MEDS: SODIUM CHLORIDE 0.9% 1,000 ML IV SCH (15:29)
[2020-09-27] MEDS: CYCLOBENZAPRINE 5 MG TAB PO PRN (19:40)
[2020-09-27] MEDS: OFLOXACIN 0.3% OPHTH DROPS 5 ML BOTTLE LEFT EAR SCH (20:35)
[2020-09-27] MEDS: MONTELUKAST 10 MG TAB PO SCH (20:35)
[2020-09-27] MEDS: PRIMIDONE 50 MG TAB PO SCH (20:35)
[2020-09-27] MEDS: FAMOTIDINE 20 MG TAB PO SCH (20:35)
[2020-09-27] MEDS: ALPRAZolam 0.5 MG TAB PO PRN (22:39)
[2020-09-28] MEDS: SODIUM CHLORIDE 0.9% 1,000 ML IV SCH (02:12)
[2020-09-28 02:50] VITALS: RESP 16
[2020-09-28] MEDS: Acetaminophen-Codeine 300-30mg TAB PO PRN ×2 (05:09→11:48)
[2020-09-28] MEDS: LEVOTHYROXINE 75 MCG TAB PO SCH (05:30)
[2020-09-28 07:44] VITALS: BP 148/70; PULSE 58; TEMP 98.1
[2020-09-28] MEDS: BUDESONIDE 0.5 MG/2 ML NEBU INHALATION SCH (08:07)
[2020-09-28] MEDS: FLUTICASONE 110 MCG INHALER INHALATION PRN (08:07)
[2020-09-28] MEDS: GABAPENTIN 300 MG CAP PO SCH (09:07)
[2020-09-28] MEDS: DICYCLOMINE 20 MG TAB PO SCH (09:07)
[2020-09-28] MEDS: PRENATAL VIT-IRON-FOLIC ACID 1 EACH CAP PO SCH (09:07)
[2020-09-28] MEDS: SERTRALINE 50 MG TAB PO SCH (09:07)
[2020-09-28] MEDS: ZINC SULFATE 220 MG CAP PO SCH (09:08)
--- NOTE | 2020-09-28 11:38 | P.PN ---
Subjective Progress Note Date: 09/28/20 HISTORY OF PRESENT ILLNESS: This is a 70-year-old female who underwent cardiac catheterization yesterday revealing normal coronary arteries. Patient examined this morning at the the medical center. She denies chest pain or pressure. She denies shortness of breath. Vital signs are stable. PHYSICAL EXAM: VITAL SIGNS: Reviewed. GENERAL: Well-developed in no acute distress. NECK: Supple. No JVD or thyromegaly LUNGS: Respirations even and unlabored. Lungs essentially clear to auscultation bilaterally. HEART: Regular rate and rhythm. S1 and S2 heard. EXTREMITIES: Normal range of motion. No clubbing or cyanosis. Peripheral pulses intact. No lower extremity edema. Right radial Site with Pulse Present. ASSESSMENT: Chest pain, status post cardiac catheterization revealing normal coronary arteries Hypertension Hyperlipidemia History of DVT on Eliquis PLAN: Continue current cardiac medications Resume Eliquis Stable for DC home today from a cardiac standpoint Follow up outpatient with Dr. Molina We will sign off. Please reconsult if needed Nurse practitioner note has been reviewed by physician. Signing provider agrees with the documented findings, assessment, and plan of care. Objective - Vital Signs Vital signs: Vital Signs Temp 98.1 F 09/28/20 07:00 Pulse 58 L 09/28/20 07:00 Resp 16 09/28/20 07:00 BP 148/70 09/28/20 07:00 Pulse Ox 95 09/28/20 07:00 Intake & Output 09/27/20 09/28/20 09/28/20 18:59 06:59 18:59 Intake Total 50 Balance 50 Intake: IV 50 Other: Voiding Method Toilet # Voids 2 2 # Bowel Movements 1 2 - Labs CBC & Chem 7: 09/25/20 17:26 09/25/20 17:26
[2020-09-28] MEDS ORDERED: APIXABAN 2.5 MG TABLET PO SCH (11:45)
--- NOTE | 2020-09-28 13:26 | P.PN ---
Subjective Progress Note Date: 09/27/20 Principal diagnosis: Chest pain 70-year-old female came in with compensative chest pain in the midsternal area radiating to the right arm as well as the right side of the jaw associated shortness of breath nausea palpitations diaphoresis and dizziness. Lasted for 10-15 minutes. Patient is drowsy most of the time as per the nursing staff during this hospital physician. Patient is still complaining of 9.5/10 chest pain although patient is fairly comfortable whenever evaluated the patient patient just pain is nonpleuritic not associated with food. Patient the had a recent stress test in month of June which she did not show any new inducible ischemia. EKG did not show any significant abnormality except for some tachycardia T-wave inversions in inferior leads compared to previous EKGs. Chest x-ray was within normal murmurs. Troponins were negative. Stress test recommended by cardiology which revealed L ventricular myocardial ischemia; Cardiac cath scheduled for today Objective - Vital Signs Vital signs: Vital Signs Temp 97.8 F 09/27/20 15:00 Pulse 56 L 09/27/20 15:45 Resp 18 09/27/20 15:00 BP 154/82 09/27/20 15:45 Pulse Ox 94 L 09/27/20 15:45 Intake & Output 09/26/20 09/27/20 09/27/20 18:59 06:59 18:59 Intake Total 0 240 50 Balance 0 240 50 Weight 68.95 kg Intake: IV 50 Oral 0 240 Other: Voiding Method Toilet # Voids 3 3 2 # Bowel Movements 1 - Exam GENERAL: The patient is alert and oriented x3, not in any acute distress. Well developed, well nourished. HEENT: Pupils are round and equally reacting to light. EOMI. No scleral icterus. No conjunctival pallor. Normocephalic, atraumatic. No pharyngeal erythema. No thyromegaly. CARDIOVASCULAR: S1 and S2 present. No murmurs, rubs, or gallops. PULMONARY: Expiratory wheezing bilaterally ABDOMEN: Soft, nontender, nondistended, normoactive bowel sounds. No palpable organomegaly. MUSCULOSKELETAL: No joint swelling or deformity. EXTREMITIES: No cyanosis, clubbing, or pedal edema. NEUROLOGICAL: Gross neurological examination did not reveal any focal deficits. SKIN: No rashes. - Labs CBC & Chem 7: 09/25/20 17:26 09/25/20 17:26 Labs: Abnormal Lab Results - Last 24 Hours (Table) 09/26/20 09/27/20 Range/Units 20:14 11:26 POC Glucose (mg/dL) 157 H 145 H (75-99) mg/dL Assessment and Plan Assessment: -Chest pain we will rule out acute coronary syndromes, patient will undergo stresses if that's negative patient will be discharged today etiology of her chest pain is not clear can be musculoskeletal. -Hypertension -hyperlipidemia -History of DVT presently on Eliquis which will be continued -Rule out pulmonary embolism -Asthma with acute exacerbation patient does have wheezing on exam and inhaled steroids and inhalational treatments. -Obstructive sleep apnea uses CPAP machine at home hypothyroidism Gastroesophageal reflux disease -Type 2 diabetes mellitus -Acute otitis media: Mostly viral but patient is having symptoms going on for some time and is having tenderness will ambulate really give the patient 3 days of antibiotics. -Chronic back pain.
== END 2020-09-28 16:10 | disposition home or self-care (01) | DRG 287 ==
LOC: EC 17:10 → 6NMEDSUR 19:26 → OBSVTOIN 09-27 12:12
PROVIDERS: ADMIT Hospitalist; ATTEND Hospitalist
PROC: 4A023N7 Measurement of Cardiac Sampling and Pressure, Left Heart, Percutaneous Approach (ICD-10-PCS; principal; 2020-09-27 13:00)
PROC: B2111ZZ Fluoroscopy of Multiple Coronary Arteries using Low Osmolar Contrast (ICD-10-PCS; principal; 2020-09-27 13:00)
DX: R07.9 Chest pain, unspecified (principal); J45.901 Unspecified asthma with (acute) exacerbation; E03.9 Hypothyroidism, unspecified; E11.9 Type 2 diabetes mellitus without complications; E78.5 Hyperlipidemia, unspecified; G47.33 Obstructive sleep apnea (adult) (pediatric); G89.29 Other chronic pain; H66.90 Otitis media, unspecified, unspecified ear; I10 Essential (primary) hypertension; I34.1 Nonrheumatic mitral (valve) prolapse; J44.9 Chronic obstructive pulmonary disease, unspecified; K21.9 Gastro-esophageal reflux disease without esophagitis; Z79.01 Long term (current) use of anticoagulants; Z79.51 Long term (current) use of inhaled steroids; Z79.82 Long term (current) use of aspirin; Z20.822 Contact with and (suspected) exposure to COVID-19; Z79.890 Hormone replacement therapy; Z79.899 Other long term (current) drug therapy; Z82.49 Family history of ischemic heart disease and other diseases of the circulatory system; Z86.718 Personal history of other venous thrombosis and embolism; Z87.442 Personal history of urinary calculi; Z87.440 Personal history of urinary (tract) infections; Z60.2 Problems related to living alone; Z90.89 Acquired absence of other organs; Z82.61 Family history of arthritis; Z83.2 Family history of diseases of the blood and blood-forming organs and certain disorders involving the immune mechanism; Z88.5 Allergy status to narcotic agent; Z88.8 Allergy status to other drugs, medicaments and biological substances; Z88.1 Allergy status to other antibiotic agents; Z91.040 Latex allergy status; Z90.710 Acquired absence of both cervix and uterus; Z96.653 Presence of artificial knee joint, bilateral
CPT/HCPCS: 36415; 71046; 78452; 80053; 80061; 83735; 84484; 85025; 85379; 85610; 85730; 87635; 93005; 93017; 93306; 93454; 94640; 96374; 99291

== ENCOUNTER 2020-10-14 15:52 | Emergency (ER) | payer MEDICARE, OTHER ==
[2020-10-14 15:59] VITALS: TEMP 97.4
--- NOTE | 2020-10-14 16:23 | ED ---
Fall HPI - General Chief Complaint: Fall Stated Complaint: fall Time Seen by Provider: 10/14/20 16:00 Source: patient, EMS Mode of arrival: EMS - History of Present Illness Initial Comments: 70-year-old female presents to emergency Department with a chief complaint of a fall. Patient brought to the ED via EMS with a c-collar in place. Patient reports she suffered a mechanical fall from a standing position when she tripped going down a curb at around 1500. Patient reports falling backwards and hitting the occipital region of her head without any loss of consciousness. She does take eliquis. She reports a hematoma on the occipital region of her head. She also reports pain in the left lower leg. She denies any other injuries. Denies any paresthesias or unilateral weakness. Denies any visual changes chest pain or shortness of breath at this time. - Related Data Home Medications Medication Instructions Recorded Confirmed Fluticasone Propionate [Flovent 1 puff INHALATION RT-DAILY PRN 10/02/13 10/14/20 Diskus] Levothyroxine Sodium [Synthroid] 150 mcg PO SUTUTHSA 10/02/13 10/14/20 Levothyroxine Sodium [Synthroid] 175 mcg PO MOWEFR 10/02/13 10/14/20 Montelukast [Singulair] 10 mg PO HS@199910/02/13 10/14/20 Nitroglycerin Sl Tabs [Nitrostat] 0.4 mg SL Q5M PRN 10/02/13 10/14/20 Apixaban [Eliquis] 2.5 mg PO BID@799,199909/29/19 10/14/20 Aspirin [Adult Low Dose Aspirin EC] 81 mg PO DAILY@79909/29/19 10/14/20 Dicyclomine [Bentyl] 20 mg PO DAILY@79909/29/19 10/14/20 Multivit with Calcium,Iron,Min 1 tab PO DAILY@79909/29/19 10/14/20 [Women's Multivitamin] Potassium Chloride ER [K-Dur 20] 60 meq PO DAILY@79902/09/20 10/14/20 Zinc 50 mg PO DAILY@79902/09/20 10/14/20 Potassium Chloride ER [K-Dur 20] 40 meq PO HS@199905/15/20 10/14/20 Primidone [Mysoline] 300 mg PO HS@199905/15/20 10/14/20 Dicyclomine [Bentyl] 40 mg PO HS@199909/25/20 10/14/20 Famotidine 20 mg PO HS@199909/25/20 10/14/20 Sertraline [Zoloft] 50 mg PO DAILY@0809/25/20 10/14/20 Gabapentin [Neurontin] 300 mg PO BID@799,199910/14/20 10/14/20 Previous Rx's Medication Instructions Recorded Acetaminophen-Codeine 300-30mg 1 tab PO TID PRN #20 tab 05/22/20 [Tylenol w/codeine #3] Cyclobenzaprine [Flexeril] 5 mg PO BID PRN tab 09/26/20 Allergies Allergy/AdvReac Type Severity Reaction Status Date / Time enoxaparin sodium Allergy Unknown RED LUMPS Verified 10/14/20 17:18 [From Lovenox] ON ABDOMEN AT INJECTION SITES erythromycin base Allergy Unknown Rash/Hives Verified 10/14/20 17:18 latex Allergy Unknown Itching Verified 10/14/20 17:18 morphine Allergy Rash/Hives Verified 10/14/20 17:18 Sulfa (Sulfonamide Allergy Anaphylaxis Verified 10/14/20 17:18 Antibiotics) tetracycline [Tetracycline] Allergy Rash/Hives Verified 10/14/20 17:18 adhesive AdvReac Rash/Hives Verified 10/14/20 17:18 metformin AdvReac Diarrhea Verified 10/14/20 17:18 pioglitazone [From Actos] AdvReac Swelling Verified 10/14/20 17:18 Review of Systems ROS Statement: Those systems with pertinent positive or pertinent negative responses have been documented in the HPI. ROS Other: All systems not noted in ROS Statement are negative. Past Medical History Past Medical History: Asthma, COPD, Diabetes Mellitus, Deep Vein Thrombosis (DVT), Eye Disorder, GERD/Reflux, Hypertension, Osteoarthritis (OA), Pneumonia, Skin Disorder, Sleep Apnea/CPAP/BIPAP, Thyroid Disorder Additional Past Medical History / Comment(s): Hx GLAUCOMA, TMJ, RENAL CALCULI, UTIs, DVT X 5 ( STATES CAUSED BY CONTROL PILLS AND HORMONES), USES BI-PAP MACHINE., [place], HAND TREMORS, STATES DIABETES RESOLVED WITH WT LOSS- WATCHES DIET. History of Any Multi-Drug Resistant Organisms: None Reported Past Surgical History: Back Surgery, Bladder Surgery, Breast Surgery, Heart Catheterization, Hysterectomy, Joint Replacement, Orthopedic Surgery, Tonsillectomy Additional Past Surgical History / Comment(s): 04/17/16 arthrotomy removal olecranon spur and loose bodies R elbow. , RIGHT TOTAL HIP, LAPAROSCOPY, BREAST BIOPSY, JULIANNE CARPAL TUNNEL, JULIANNE KNEE REPLACEMENT, JULIANNE ROTATOR CUFF REPAIR, LEFT FOOT SURG. Past Anesthesia/Blood Transfusion Reactions: Postoperative Nausea & Vomiting (PONV) Past Psychological History: No Psychological Hx Reported Smoking Status: Never smoker Past Alcohol Use History: Rare Past Drug Use History: None Reported - Past Family History Mother Family Medical History: Hyperlipidemia, Hypertension Additional Family Medical History / Comment(s): Mother is 91 yrs old. Father Family Medical History: Osteoarthritis (OA) Sister(s) Family Medical History: Pulmonary Embolus General Exam Limitations: no limitations General appearance: alert, in no apparent distress Head exam: Present: normocephalic. Absent: atraumatic (Hematoma noted on the axilla region of the head), normal inspection (Hematoma), other (Negative [place] sign, raccoon eyes, hemotympanum.) Eye exam: Present: normal appearance, PERRL, EOMI Pupils: Present: normal accommodation ENT exam: Present: normal exam, normal oropharynx (Dentures), mucous membranes moist, TM's normal bilaterally, normal external ear exam Neck exam: Present: normal inspection, full ROM. Absent: tenderness, lymphadenopathy Respiratory exam: Present: normal lung sounds bilaterally. Absent: respiratory distress, wheezes, rales, rhonchi, stridor, chest wall tenderness, accessory muscle use Cardiovascular Exam: Present: regular rate, normal rhythm, normal heart sounds. Absent: systolic murmur GI/Abdominal exam: Present: soft. Absent: distended, tenderness, guarding, rebound, rigid Extremities exam: Present: normal inspection, full ROM, tenderness (Tenderness of the left tib-fib region.), normal capillary refill, other (Patient has a brace on the right ankle.). Absent: pedal edema, joint swelling, calf tenderness Back exam: Present: normal inspection, full ROM. Absent: tenderness, CVA tenderness (R), CVA tenderness (L), muscle spasm, paraspinal tenderness, vertebral tenderness Neurological exam: Present: alert, oriented X3, CN II-XII intact, normal gait Psychiatric exam: Present: normal affect, normal mood Skin exam: Present: warm, dry, intact, normal color Course Vital Signs 10/14/20 10/14/20 15:53 17:36 Temperature 97.4 F L Pulse Rate 68 Respiratory 18 Rate Blood Pressure 173/76 160/88 O2 Sat by Pulse 98 Oximetry Medical Decision Making - Medical Decision Making 70-year-old female presents to emergency Department with chief complaint of fall. Patient is currently on blood thinners. On physical examination, she is neurovascularly intact and has a hematoma neck supple region of the head. Also has tenderness of the left lower leg region. Otherwise full range of motion in the extremities. X-rays of the leg, chest and pelvis are unremarkable. CT of the brain and C-spine is unremarkable. C-collar is clear. Patient given trama dol here for pain. Will be discharged with tramadol starter pack. Return parameters were discussed the patient understanding and agreeable. Patient reports feeling well and she wants to go home. PCP follow-up. Case discussed physician. - Lab Data Result diagrams: 10/14/20 16:32 10/14/20 16:32 Lab Results 10/14/20 10/14/20 10/14/20 Range/Units 16:32 16:32 17:52 WBC 5.2 (3.8-10.6) k/uL RBC 4.43 (3.80-5.40) m/uL Hgb 13.8 (11.4-16.0) gm/dL Hct 41.1 (34.0-46.0) % MCV 92.8 (80.0-100.0) fL MCH 31.2 (25.0-35.0) pg MCHC 33.6 (31.0-37.0) g/dL RDW 12.5 (11.5-15.5) % Plt Count 199 (150-450) k/uL MPV 6.5 Neutrophils % 57 % Lymphocytes % 32 % Monocytes % 6 % Eosinophils % 3 % Basophils % 1 % Neutrophils # 2.9 (1.3-7.7) k/uL Lymphocytes # 1.7 (1.0-4.8) k/uL Monocytes # 0.3 (0-1.0) k/uL Eosinophils # 0.1 (0-0.7) k/uL Basophils # 0.0 (0-0.2) k/uL PT 10.1 (9.0-12.0) sec INR 0.9 (<1.2) APTT 22.5 (22.0-30.0) sec Sodium 137 (137-145) mmol/L Potassium 4.2 (3.5-5.1) mmol/L Chloride 99 (98-107) mmol/L Carbon Dioxide 30 (22-30) mmol/L Anion Gap 8 mmol/L BUN 12 (7-17) mg/dL Creatinine 0.49 L (0.52-1.04) mg/dL Est GFR (CKD-EPI)AfAm >90 (>60 ml/min/1.73 sqM) Est GFR (CKD-EPI)NonAf >90 (>60 ml/min/1.73 sqM) Glucose 115 H (74-99) mg/dL Calcium 9.4 (8.4-10.2) mg/dL Total Bilirubin 0.3 (0.2-1.3) mg/dL AST 33 (14-36) U/L ALT 19 (4-34) U/L Alkaline Phosphatase 105 (38-126) U/L Total Protein 6.9 (6.3-8.2) g/dL Albumin 4.4 (3.5-5.0) g/dL - EKG Data EKG Comments: Sinus rhythm, inverted T-wave in lead 3 Ventricular rate 66, MI 190, QRS 90, QTc 425. Disposition Clinical Impression: Fall, Scalp hematoma, Head injury Disposition: HOME SELF-CARE Condition: Stable Instructions (If sedation given, give patient instructions): Fall Prevention (ED) Additional Instructions: Please return to the Emergency Department if symptoms worsen or any other concerns. Is patient prescribed a controlled substance at d/c from ED?: No Referrals: Josy Man MD [Primary Care Provider] - 1-2 days Time of Disposition: 18:38
[2020-10-14 16:47] LABS: Basophils % (A) 1 %; Eosinophils # (A) 0.1 k/uL (0-0.7); Eosinophils % (A) 3 %; HCT 41.1 % (34.0-46.0); HGB 13.8 gm/dL (11.4-16.0); Lymphocytes # (A) 1.7 k/uL (1.0-4.8); Lymphocytes % (A) 32 %; MCH 31.2 pg (25.0-35.0); MCHC 33.6 g/dL (31.0-37.0); MCV 92.8 fL (80.0-100.0); Mean Platelet Volume 6.5; Monocytes # (A) 0.3 k/uL (0-1.0); Monocytes % (A) 6 %; Neutrophils # (A) 2.9 k/uL (1.3-7.7); Neutrophils % (A) 57 %; Platelet Count 199 k/uL (150-450); RBC 4.43 m/uL (3.80-5.40); RDW 12.5 % (11.5-15.5); WBC 5.2 k/uL (3.8-10.6)
--- NOTE | 2020-10-14 16:53 | CT ---
EXAMINATION TYPE: CT brain cspine wo con DATE OF EXAM: 10/14/2020 COMPARISON: CT brain 05/19/2018 HISTORY: Fall. CT DLP: 1379.9 mGycm Automated exposure control for dose reduction was used. Exam performed without contrast. There is cerebral cortical atrophy. There is no mass effect nor midline shift. There is no sign of in tracranial hemorrhage. The calvarium is intact skull base is intact. There is normal aeration of the mastoid sinuses. The cervical vertebra have fairly normal alignment. There is narrowing of disc spaces at C5-6 and C6- 7 with spur formation. There is mild hypertrophic facet arthropathy. Prevertebral soft tissues are in tact. Skull base is intact. IMPRESSION: Cerebral atrophy. No acute intracranial abnormality. No change. Spondylotic changes in the lower cervical spine. No fracture.
[2020-10-14 17:01] LABS: ALT 19 U/L (4-34); AST 33 U/L (14-36); African American GFR (CKD) >90 (>60 ml/min/1.73 sqM); Albumin 4.4 g/dL (3.5-5.0); Alkaline Phosphatase 105 U/L (38-126); Anion Gap 8 mmol/L; Blood Urea Nitrogen 12 mg/dL (7-17); Calcium 9.4 mg/dL (8.4-10.2); Carbon Dioxide 30 mmol/L (22-30); Chloride 99 mmol/L (98-107); Glucose 115 mg/dL (74-99); Non-African American GFR(CKD) >90 (>60 ml/min/1.73 sqM); Potassium 4.2 mmol/L (3.5-5.1); Sodium 137 mmol/L (137-145); Total Bilirubin 0.3 mg/dL (0.2-1.3); Total Protein 6.9 g/dL (6.3-8.2)
[2020-10-14] MEDS ORDERED: traMADol 50 MG TAB PO STA (17:20)
[2020-10-14 17:37] VITALS: RESP 18
[2020-10-14 18:07] LABS: INR 0.9 (<1.2); Partial Thromboplastin Time 22.5 sec (22.0-30.0); Prothrombin Time 10.1 sec (9.0-12.0)
--- NOTE | 2020-10-14 18:15 | XR ---
EXAMINATION TYPE: XR tibia fibula LT DATE OF EXAM: 10/14/2020 COMPARISON: NONE HISTORY: Pain TECHNIQUE: 4 views FINDINGS: There is left knee prosthesis. Ankle joint appears intact. Prosthesis appears in good posit ion. I see no fracture nor dislocation. IMPRESSION: No fracture seen.
--- NOTE | 2020-10-14 18:16 | XR ---
EXAMINATION TYPE: XR pelvis AP view DATE OF EXAM: 10/14/2020 COMPARISON: NONE HISTORY: Fall TECHNIQUE: Single view FINDINGS: There is bilateral hip prosthesis. I see no fracture nor dislocation. The pelvic ring appea rs intact. Sacroiliac joints are intact. IMPRESSION: No fracture seen.
--- NOTE | 2020-10-14 18:17 | XR ---
EXAMINATION TYPE: XR chest 2V DATE OF EXAM: 10/14/2020 COMPARISON: 09/25/2020 HISTORY: Fall. Pain. TECHNIQUE: FINDINGS: Heart and mediastinum are normal. Lungs are clear. Diaphragm is normal. Bony thorax is inta ct. IMPRESSION: No active cardiopulmonary disease. No change.
[2020-10-14] MEDS ORDERED: traMADol 50 MG STARTER PACK 3 TAB BTL PO STA (18:42)
[2020-10-14 18:43] VITALS: PULSE 70
[2020-10-14 19:12] VITALS: BP 145/80
== END 2020-10-14 19:36 | disposition home or self-care (01) ==
LOC: EC 15:52
DX: S00.03XA Contusion of scalp, initial encounter (principal); S09.90XA Unspecified injury of head, initial encounter; J44.9 Chronic obstructive pulmonary disease, unspecified; E11.9 Type 2 diabetes mellitus without complications; I10 Essential (primary) hypertension; K21.9 Gastro-esophageal reflux disease without esophagitis; G47.30 Sleep apnea, unspecified; Z86.718 Personal history of other venous thrombosis and embolism; M19.90 Unspecified osteoarthritis, unspecified site; Z79.01 Long term (current) use of anticoagulants; Z79.82 Long term (current) use of aspirin; Z79.51 Long term (current) use of inhaled steroids; W01.10XA Fall on same level from slipping, tripping and stumbling with subsequent striking against unspecified object, initial encounter; Y92.480 Sidewalk as the place of occurrence of the external cause
CPT/HCPCS: 36415; 70450; 71046; 72125; 72170; 80053; 85025; 85610; 85730; 93005; 99285

== ENCOUNTER 2020-10-22 19:56 | Observation (INO) | payer MEDICARE, OTHER ==
[2020-10-22] MEDS ORDERED: SODIUM CHLORIDE 0.9% 500 ML 500 ML IV STA (20:12)
[2020-10-22] MEDS ORDERED: HYDROmorphone 0.5 MG/0.5 ML SYRINGE IVP STA ×2 (20:12→22:58)
[2020-10-22 21:06] LABS: ALT 15 U/L (4-34); AST 22 U/L (14-36); African American GFR (CKD) >90 (>60 ml/min/1.73 sqM); Albumin 3.7 g/dL (3.5-5.0); Alkaline Phosphatase 104 U/L (38-126); Anion Gap 5 mmol/L; Blood Urea Nitrogen 10 mg/dL (7-17); Carbon Dioxide 29 mmol/L (22-30); Chloride 102 mmol/L (98-107); Glucose 112 mg/dL (74-99); Lipase 88 U/L (23-300); Non-African American GFR(CKD) >90 (>60 ml/min/1.73 sqM); Potassium 4.4 mmol/L (3.5-5.1); Sodium 136 mmol/L (137-145); Total Bilirubin 0.1 mg/dL (0.2-1.3); Total Protein 5.9 g/dL (6.3-8.2)
--- NOTE | 2020-10-22 22:12 | CT ---
EXAMINATION TYPE: CT abdomen pelvis w con DATE OF EXAM: 10/22/2020 COMPARISON: 05/17/2012 HISTORY: abdominal pain, weakness, nausea CT DLP: 1150.8 mGycm Automated exposure control for dose reduction was used. CONTRAST: Performed with IV Contrast, patient injected with 100 mL of Isovue 300. Images obtained from the diaphragm to the floor the pelvis with IV contrast. There is some mild subsegmental atelectasis at the lung bases. Heart size is normal. There is no pericardial effusion. There are clips from cholecystectomy. Liver spleen pancreas appear intact. Bile ducts are not dilated . There is no adrenal mass. Kidneys show satisfactory contrast opacification. There is no hydronephrosi s. Appendix appears normal. There is no retroperitoneal adenopathy. Bladder distends smoothly. There is bilateral hip prosthesis. There is no free fluid in the pelvis. There is no pelvic mass. There is no mesenteric edema. There is no ascites or free air. There is no bowel obstruction. Delayed images show normal renal excretion. Lumbar vertebra have normal alignment. There is narrowing at L4-5 disc space with vacuum disc. There is no compression fracture. The bony pelvis is intact. IMPRESSION: Subsegmental atelectasis at the lung bases. I do not see a cause for right lower quadrant pain. Chloe l appendix. No adverse change.
[2020-10-22 22:13] LABS: Basophils % (A) 1 %; Eosinophils # (A) 0.1 k/uL (0-0.7); Eosinophils % (A) 2 %; HCT 36.6 % (34.0-46.0); Lymphocytes % (A) 37 %; MCH 32.6 pg (25.0-35.0); MCHC 35.7 g/dL (31.0-37.0); MCV 91.5 fL (80.0-100.0); Mean Platelet Volume 7.2; Monocytes # (A) 0.4 k/uL (0-1.0); Monocytes % (A) 8 %; Neutrophils # (A) 2.8 k/uL (1.3-7.7); Neutrophils % (A) 51 %; Platelet Count 177 k/uL (150-450); RDW 11.9 % (11.5-15.5); WBC 5.4 k/uL (3.8-10.6)
[2020-10-22 22:44] LABS: Appearance,Urine Clear (Clear); Bilirubin,Urine Negative (Negative); Blood,Urine Negative (Negative); Color,Urine Light Yellow; Glucose,Urine (UA) Negative (Negative); Ketones,Urine Negative (Negative); Leukocyte Esterase,Urine Negative (Negative); Nitrite,Urine Negative (Negative); Protein,Urine Negative (Negative); Specific Gravity,Urine 1.017 (1.001-1.035); Urobilinogen,Urine <2.0 mg/dL (<2.0)
--- NOTE | 2020-10-22 23:35 | ED ---
Abdominal Pain HPI - General Source: patient Mode of arrival: EMS Limitations: no limitations <Carmen Matthews - Last Filed: 10/23/20 00:05> <Chadd Salas - Last Filed: 10/23/20 01:37> - General Chief Complaint: Abdominal Pain Stated Complaint: Abd Pain Time Seen by Provider: 10/22/20 20:00 - History of Present Illness Initial Comments: 70-year-old female patient presents to the emergency department today for evaluation of right lower quadrant abdominal pain, nausea, and diarrhea. Patient states she's had diarrhea for the last 3 weeks. Abdominal pain started over the last few days. States she has had some mild rectal bleeding with this. She had elevated temperature last night of 100.1. Denies any use of antibiotics in the few months leading up to symptom onset. Does have history of cholecystectomy, no other abdominal surgeries. States she did have colonoscopy and had a polyp removed, was never told she had any diverticulosis. Denies any sick contacts. States that diarrhea episodes come on as soon as she eats anything. Patient denies any recent rash, cough, shortness of breath, chest pain, back pain, numbness, tingling, dizziness, weakness, hematuria, dysuria, urinary urgency, urinary frequency, headache, visual changes, or any other complaints. (Carmen Matthews) - Related Data Home Medications Medication Instructions Recorded Confirmed Fluticasone Propionate [Flovent 1 puff INHALATION RT-DAILY PRN 10/02/13 10/22/20 Diskus] Levothyroxine Sodium [Synthroid] 150 mcg PO SUTUTHSA 10/02/13 10/22/20 Levothyroxine Sodium [Synthroid] 175 mcg PO MOWEFR 10/02/13 10/22/20 Montelukast [Singulair] 10 mg PO HS@199910/02/13 10/22/20 Nitroglycerin Sl Tabs [Nitrostat] 0.4 mg SL Q5M PRN 10/02/13 10/22/20 Apixaban [Eliquis] 2.5 mg PO BID@0800,199909/29/19 10/22/20 Aspirin [Adult Low Dose Aspirin EC] 81 mg PO DAILY@0800 09/29/19 10/22/20 Dicyclomine [Bentyl] 20 mg PO DAILY@0800 09/29/19 10/22/20 Multivit with Calcium,Iron,Min 1 tab PO DAILY@79909/29/19 10/22/20 [Women's Multivitamin] Potassium Chloride ER [K-Dur 20] 60 meq PO DAILY@0800 02/09/20 10/22/20 Zinc 50 mg PO DAILY@79902/09/20 10/22/20 Potassium Chloride ER [K-Dur 20] 40 meq PO HS@199905/15/20 10/22/20 Primidone [Mysoline] 300 mg PO HS@199905/15/20 10/22/20 Dicyclomine [Bentyl] 40 mg PO HS@199909/25/20 10/22/20 Famotidine 20 mg PO HS@199909/25/20 10/22/20 Sertraline [Zoloft] 50 mg PO DAILY@79909/25/20 10/22/20 Gabapentin [Neurontin] 300 mg PO BID@799,199910/14/20 10/22/20 Econazole Nitrate [Econazole 1 applic TOPICAL BID 10/22/20 10/22/20 Nitrate 1%] HYDROcodone/APAP 5-325MG [[place] 1 tab PO QID PRN 10/22/20 10/22/20 5-325] Meclizine [Antivert] 12.5 mg PO DAILY PRN 10/22/20 10/22/20 Previous Rx's Medication Instructions Recorded Acetaminophen-Codeine 300-30mg 1 tab PO TID PRN #20 tab 05/22/20 [Tylenol w/codeine #3] Cyclobenzaprine [Flexeril] 5 mg PO BID PRN tab 09/26/20 Allergies Allergy/AdvReac Type Severity Reaction Status Date / Time enoxaparin sodium Allergy Unknown RED LUMPS Verified 10/14/20 17:18 [From Lovenox] ON ABDOMEN AT INJECTION SITES erythromycin base Allergy Unknown Rash/Hives Verified 10/14/20 17:18 latex Allergy Unknown Itching Verified 10/14/20 17:18 morphine Allergy Rash/Hives Verified 10/14/20 17:18 Sulfa (Sulfonamide Allergy Anaphylaxis Verified 10/14/20 17:18 Antibiotics) tetracycline [Tetracycline] Allergy Rash/Hives Verified 10/14/20 17:18 adhesive AdvReac Rash/Hives Verified 10/14/20 17:18 metformin AdvReac Diarrhea Verified 10/14/20 17:18 pioglitazone [From Actos] AdvReac Swelling Verified 10/14/20 17:18 Review of Systems ROS Other: All systems not noted in ROS Statement are negative. <Carmen Matthews - Last Filed: 10/23/20 00:05> ROS Other: All systems not noted in ROS Statement are negative. <Chadd Salas P - Last Filed: 10/23/20 01:37> ROS Statement: Those systems with pertinent positive or pertinent negative responses have been documented in the HPI. Past Medical History Past Medical History: Asthma, COPD, Diabetes Mellitus, Deep Vein Thrombosis (DVT), Eye Disorder, GERD/Reflux, Hypertension, Osteoarthritis (OA), Pneumonia, Skin Disorder, Sleep Apnea/CPAP/BIPAP, Thyroid Disorder Additional Past Medical History / Comment(s): Hx GLAUCOMA, TMJ, RENAL CALCULI, UTIs, DVT X 5 ( STATES CAUSED BY CONTROL PILLS AND HORMONES), USES BI-PAP MACHINE., [place], HAND TREMORS, STATES DIABETES RESOLVED WITH WT LOSS- WATCHES DIET. History of Any Multi-Drug Resistant Organisms: None Reported Past Surgical History: Back Surgery, Bladder Surgery, Breast Surgery, Heart Catheterization, Hysterectomy, Joint Replacement, Orthopedic Surgery, Tonsillectomy Additional Past Surgical History / Comment(s): 04/17/16 arthrotomy removal olecranon spur and loose bodies R elbow. , RIGHT TOTAL HIP, LAPAROSCOPY, BREAST BIOPSY, JULIANNE CARPAL TUNNEL, JULIANNE KNEE REPLACEMENT, JULIANNE ROTATOR CUFF REPAIR, LEFT FOOT SURG. Past Anesthesia/Blood Transfusion Reactions: Postoperative Nausea & Vomiting (PONV) Past Psychological History: No Psychological Hx Reported Smoking Status: Never smoker Past Alcohol Use History: Rare Past Drug Use History: None Reported - Past Family History Mother Family Medical History: Hyperlipidemia, Hypertension Additional Family Medical History / Comment(s): Mother is 91 yrs old. Father Family Medical History: Osteoarthritis (OA) Sister(s) Family Medical History: Pulmonary Embolus <Carmen Matthews - Last Filed: 10/23/20 00:05> General Exam Limitations: no limitations General appearance: alert, in no apparent distress, other (This is a well- developed, well-nourished adult female patient in no acute distress. Vital signs upon presentation are temperature 98.2F, pulse 84, respirations 18, blood pressure 147/77, pulse ox 100% on room air.) ENT exam: Present: normal exam, normal oropharynx, mucous membranes moist Respiratory exam: Present: normal lung sounds bilaterally. Absent: respiratory distress, wheezes, rales, rhonchi, stridor Cardiovascular Exam: Present: regular rate, normal rhythm, normal heart sounds. Absent: systolic murmur, diastolic murmur, rubs, gallop, clicks GI/Abdominal exam: Present: soft, tenderness (Right lower quadrant), normal bowel sounds. Absent: distended, guarding, rebound, rigid Neurological exam: Present: alert, oriented X3, CN II-XII intact Psychiatric exam: Present: normal affect, normal mood Skin exam: Present: warm, dry, intact, normal color. Absent: rash <Carmen Matthews - Last Filed: 10/23/20 00:05> Course Vital Signs 10/22/20 10/22/20 10/23/20 19:56 22:31 00:54 Temperature 98.2 F Pulse Rate 84 81 68 Respiratory 18 17 18 Rate Blood Pressure 147/77 144/81 164/77 O2 Sat by Pulse 100 99 98 Oximetry Medical Decision Making - Lab Data Result diagrams: 10/22/20 20:33 10/22/20 20:33 <Carmen Matthews - Last Filed: 10/23/20 00:05> - Lab Data Result diagrams: 10/22/20 20:33 10/22/20 20:33 <Chadd Salas - Last Filed: 10/23/20 01:37> - Medical Decision Making Patient was seen by Carmen Matthews NP. Laboratory evaluation is performed which is unremarkable. Slight dehydration potentially noted. Vitals are stable. CT abdomen and pelvis without acute pathology of the abdomen or pelvis. Patient initially was to be discharged home. However patient with a transient or vomiting. Was unable to ambulate and dizzy. Patient will be admitted pending C. diff results for rehydration therapy and GI consultation. (Chadd Casillas) - Lab Data Lab Results 10/22/20 10/22/20 10/22/20 Range/Units 20:33 20:33 20:33 WBC 5.4 (3.8-10.6) k/uL RBC 4.00 (3.80-5.40) m/uL Hgb 13.0 (11.4-16.0) gm/dL Hct 36.6 (34.0-46.0) % MCV 91.5 (80.0-100.0) fL MCH 32.6 (25.0-35.0) pg MCHC 35.7 (31.0-37.0) g/dL RDW 11.9 (11.5-15.5) % Plt Count 177 (150-450) k/uL MPV 7.2 Neutrophils % 51 % Lymphocytes % 37 % Monocytes % 8 % Eosinophils % 2 % Basophils % 1 % Neutrophils # 2.8 (1.3-7.7) k/uL Lymphocytes # 2.0 (1.0-4.8) k/uL Monocytes # 0.4 (0-1.0) k/uL Eosinophils # 0.1 (0-0.7) k/uL Basophils # 0.0 (0-0.2) k/uL Sodium 136 L (137-145) mmol/L Potassium 4.4 (3.5-5.1) mmol/L Chloride 102 (98-107) mmol/L Carbon Dioxide 29 (22-30) mmol/L Anion Gap 5 mmol/L BUN 10 (7-17) mg/dL Creatinine 0.48 L (0.52-1.04) mg/dL Est GFR (CKD-EPI)AfAm >90 (>60 ml/min/1.73 sqM) Est GFR (CKD-EPI)NonAf >90 (>60 ml/min/1.73 sqM) Glucose 112 H (74-99) mg/dL Calcium 9.0 (8.4-10.2) mg/dL Total Bilirubin 0.1 L (0.2-1.3) mg/dL AST 22 (14-36) U/L ALT 15 (4-34) U/L Alkaline Phosphatase 104 (38-126) U/L Troponin I (0.000-0.034) ng/mL Total Protein 5.9 L (6.3-8.2) g/dL Albumin 3.7 (3.5-5.0) g/dL Lipase 88 (23-300) U/L Urine Color Light Yellow Urine Appearance Clear (Clear) Urine pH 6.0 (5.0-8.0) Ur Specific [place] 1.017 (1.001-1.035) Urine Protein Negative (Negative) Urine Glucose (UA) Negative (Negative) Urine Ketones Negative (Negative) Urine Blood Negative (Negative) Urine Nitrite Negative (Negative) Urine Bilirubin Negative (Negative) Urine Urobilinogen <2.0 (<2.0) mg/dL Ur Leukocyte Esterase Negative (Negative) 10/22/20 Range/Units 20:33 WBC (3.8-10.6) k/uL RBC (3.80-5.40) m/uL Hgb (11.4-16.0) gm/dL Hct (34.0-46.0) % MCV (80.0-100.0) fL MCH (25.0-35.0) pg MCHC (31.0-37.0) g/dL RDW (11.5-15.5) % Plt Count (150-450) k/uL MPV Neutrophils % % Lymphocytes % % Monocytes % % Eosinophils % % Basophils % % Neutrophils # (1.3-7.7) k/uL Lymphocytes # (1.0-4.8) k/uL Monocytes # (0-1.0) k/uL Eosinophils # (0-0.7) k/uL Basophils # (0-0.2) k/uL Sodium (137-145) mmol/L Potassium (3.5-5.1) mmol/L Chloride (98-107) mmol/L Carbon Dioxide (22-30) mmol/L Anion Gap mmol/L BUN (7-17) mg/dL Creatinine (0.52-1.04) mg/dL Est GFR (CKD-EPI)AfAm (>60 ml/min/1.73 sqM) Est GFR (CKD-EPI)NonAf (>60 ml/min/1.73 sqM) Glucose (74-99) mg/dL Calcium (8.4-10.2) mg/dL Total Bilirubin (0.2-1.3) mg/dL AST (14-36) U/L ALT (4-34) U/L Alkaline Phosphatase (38-126) U/L Troponin I <0.012 (0.000-0.034) ng/mL Total Protein (6.3-8.2) g/dL Albumin (3.5-5.0) g/dL Lipase (23-300) U/L Urine Color Urine Appearance (Clear) Urine pH (5.0-8.0) Ur Specific [place] (1.001-1.035) Urine Protein (Negative) Urine Glucose (UA) (Negative) Urine Ketones (Negative) Urine Blood (Negative) Urine Nitrite (Negative) Urine Bilirubin (Negative) Urine Urobilinogen (<2.0) mg/dL Ur Leukocyte Esterase (Negative) Disposition Is patient prescribed a controlled substance at d/c from ED?: No <Carmen Matthews - Last Filed: 10/23/20 00:05> Time of Disposition: 01:37 <Chadd Salas - Last Filed: 10/23/20 01:37> Clinical Impression: Abdominal pain, Diarrhea Disposition: ADMITTED IP TO THIS HOSP Condition: Serious Additional Instructions: Increase fluid intake. Return with stool sample. Follow-up with the primary care physician for recheck in 1-2 days. Return for any new, worsening, or concerning symptoms. Referrals: Josy Man MD [Primary Care Provider] - 1-2 days
[2020-10-23] MEDS ORDERED: ONDANSETRON 4 MG/2 ML VIAL IVP STA (01:06)
[2020-10-23] MEDS ORDERED: ONDANSETRON 4 MG/2 ML VIAL IVP PRN (01:34)
[2020-10-23] MEDS ORDERED: NALOXONE 0.4 MG/ML 1 ML VIAL IV PRN (01:34)
[2020-10-23] MEDS ORDERED: HYDROmorphone 0.5 MG/0.5 ML SYRINGE IVP STA (02:08)
[2020-10-23] MEDS ORDERED: LORazepam 2 MG/ML INJ IV STA (02:09)
[2020-10-23] MEDS: SODIUM CHLORIDE 0.9% 1,000 ML IV SCH ×2 (02:14→16:01)
[2020-10-23] MEDS ORDERED: HYDROmorphone 1 MG/ML 1 ML SYRINGE IVP PRN (02:55)
[2020-10-23] MEDS ORDERED: HYDROmorphone 1 MG/ML 1 ML SYRINGE IVP STA (02:55)
[2020-10-23] MEDS ORDERED: CYCLOBENZAPRINE 5 MG TAB PO PRN (09:37)
[2020-10-23] MEDS ORDERED: NITROGLYCERIN SL TABS 0.4 MG TAB SUBLINGUAL PRN (09:37)
[2020-10-23] MEDS: PANTOPRAZOLE 40 MG/10 ML VIAL IVP SCH (09:37)
[2020-10-23] MEDS ORDERED: MECLIZINE 12.5 MG TAB PO PRN (09:37)
[2020-10-23] MEDS ORDERED: FLUTICASONE 44 MCG INHALER INHALATION PRN ×2 (09:37→09:49)
[2020-10-23] MEDS ORDERED: LEVOTHYROXINE 100 MCG TAB PO SCH (10:00)
[2020-10-23] MEDS ORDERED: LEVOTHYROXINE 75 MCG TAB PO SCH (10:00)
--- NOTE | 2020-10-23 10:15 | XR ---
EXAMINATION TYPE: XR chest 2V DATE OF EXAM: 10/23/2020 COMPARISON: 10/14/2020 HISTORY: Short of breath TECHNIQUE: Frontal and lateral views of the chest are obtained. FINDINGS: There is no focal air space opacity, pleural effusion, or pneumothorax seen. The cardiac silhouette size is within normal limits. The osseous structures are intact. IMPRESSION: No acute cardiopulmonary process.
--- NOTE | 2020-10-23 13:12 | P.CONS ---
History of Present Illness - Reason for Consult Consult date: 10/23/20 Nausea, vomiting, diarrhea Requesting physician: Serene Cui - Chief Complaint Nausea, diarrhea, abdominal pain - History of Present Illness This is a 70-year-old white female who presented to the emergency department yesterday with complaints of right lower quadrant abdominal pain with nausea and diarrhea. Patient states she's had diarrhea for the last 2-3 weeks. States it occurs after eating 3-4 times a day. Vomiting just started yesterday she had 4 episodes. She's had no vomiting today, no diarrhea since she's been admitted to the hospital. States she has right lower quadrant pain and thinks it's her appendix. Her past medical history includes asthma, COPD, diabetes mellitus, history DVT, I disorder, GERD, hypertension, osteoarthritis, obstructive sleep apnea, and hypothyroid disorder. Patient states she also underwent a cardiac catheterization 2-3 weeks ago and at that time she received antibiotics during her hospital stay. She does report taking Pepcid daily. Thinks she states she's had a previous EGD about 5 years ago with no significant findings. She also states she had a colonoscopy 2-[address] Woodard applicator on [facility] with findings of colon polyp and internal hemorrhoids. Labs WBC 5.4, hemoglobin 13, hematocrit 36, platelet count 177,000, lipase 88, total bilirubin 0.1, alkaline phosphatase 104, AST 22, ALT 15. Review of Systems REVIEW OF SYSTEMS: CARDIOPULMONARY: No chest pain or shortness of breath. Gastrointestinal: Right lower quadrant pain. Vomiting. 1 day. No hematemesis, coffee-ground emesis. No rectal bleeding, or melena. Diarrhea 2- 3 weeks. GENITOURINARY: No dysuria or hematuria. MUSCULOSKELETAL: Reports normal range of motion., Joint pain. SKIN: No rashes. No jaundice. ENDOCRINE: No chills, fevers. No excessive weight gain or loss. No polydipsia or polyuria. PSYCHIATRIC: Unremarkable. NEUROLOGY: No change in mental status. Denies dizziness, headache. ENT: Vision unremarkable. CONSTITUTIONAL: No recent weight loss. No fever, chills, night sweats. Past Medical History Past Medical History: Asthma, COPD, Diabetes Mellitus, Deep Vein Thrombosis (DVT), Eye Disorder, GERD/Reflux, Hypertension, Osteoarthritis (OA), Pneumonia, Skin Disorder, Sleep Apnea/CPAP/BIPAP, Thyroid Disorder Additional Past Medical History / Comment(s): Hx GLAUCOMA, TMJ, RENAL CALCULI, UTIs, DVT X 5 ( STATES CAUSED BY CONTROL PILLS AND HORMONES), USES BI-PAP MACHINE., CAPITAN GRANDE BAND, HAND TREMORS, STATES DIABETES RESOLVED WITH WT LOSS- WATCHES DIET. History of Any Multi-Drug Resistant Organisms: None Reported Past Surgical History: Back Surgery, Bladder Surgery, Breast Surgery, Heart Catheterization, Hysterectomy, Joint Replacement, Orthopedic Surgery, Tonsillectomy Additional Past Surgical History / Comment(s): 04/17/16 arthrotomy removal olecranon spur and loose bodies R elbow. , RIGHT TOTAL HIP, LAPAROSCOPY, BREAST BIOPSY, JULIANNE CARPAL TUNNEL, JULIANNE KNEE REPLACEMENT, JULIANNE ROTATOR CUFF REPAIR, LEFT FOOT SURG. Past Anesthesia/Blood Transfusion Reactions: Postoperative Nausea & Vomiting (PONV) Past Psychological History: No Psychological Hx Reported Additional Psychological History / Comment(s): Pt lives alone. Using walker., uses bus for transportation Smoking Status: Never smoker Past Alcohol Use History: Rare Past Drug Use History: None Reported - Past Family History Mother Family Medical History: Hyperlipidemia, Hypertension Additional Family Medical History / Comment(s): Mother is 91 yrs old. Father Family Medical History: Osteoarthritis (OA) Sister(s) Family Medical History: Pulmonary Embolus Medications and Allergies Home Medications Medication Instructions Recorded Confirmed Type Fluticasone Propionate [Flovent 1 puff INHALATION RT-DAILY PRN 10/02/13 10/22/20 History Diskus] Levothyroxine Sodium [Synthroid] 150 mcg PO SUTUTHSA 10/02/13 10/22/20 History Levothyroxine Sodium [Synthroid] 175 mcg PO MOWEFR 10/02/13 10/22/20 History Montelukast [Singulair] 10 mg PO HS@199910/02/13 10/22/20 History Nitroglycerin Sl Tabs [Nitrostat] 0.4 mg SL Q5M PRN 10/02/13 10/22/20 History Apixaban [Eliquis] 2.5 mg PO BID@08,199909/29/19 10/22/20 History Aspirin [Adult Low Dose Aspirin EC] 81 mg PO DAILY@79909/29/19 10/22/20 History Dicyclomine [Bentyl] 20 mg PO DAILY@79909/29/19 10/22/20 History Multivit with Calcium,Iron,Min 1 tab PO DAILY@79909/29/19 10/22/20 History [Women's Multivitamin] Potassium Chloride ER [K-Dur 20] 60 meq PO DAILY@79902/09/20 10/22/20 History Zinc 50 mg PO DAILY@79902/09/20 10/22/20 History Potassium Chloride ER [K-Dur 20] 40 meq PO HS@199905/15/20 10/22/20 History Primidone [Mysoline] 300 mg PO HS@199905/15/20 10/22/20 History Acetaminophen-Codeine 300-30mg 1 tab PO TID PRN #20 tab 05/22/20 10/22/20 Rx [Tylenol w/codeine #3] Dicyclomine [Bentyl] 40 mg PO HS@199909/25/20 10/22/20 History Famotidine 20 mg PO HS@199909/25/20 10/22/20 History Sertraline [Zoloft] 50 mg PO DAILY@79909/25/20 10/22/20 History Cyclobenzaprine [Flexeril] 5 mg PO BID PRN tab 09/26/20 10/22/20 Rx Gabapentin [Neurontin] 300 mg PO BID@799,199910/14/20 10/22/20 History Econazole Nitrate [Econazole 1 applic TOPICAL BID 10/22/20 10/22/20 History Nitrate 1%] HYDROcodone/APAP 5-325MG [[place] 1 tab PO QID PRN 10/22/20 10/22/20 History 5-325] Meclizine [Antivert] 12.5 mg PO DAILY PRN 10/22/20 10/22/20 History Ondansetron Odt [Zofran Odt] 4 mg PO Q8HR PRN #20 tab 10/23/20 Rx Allergies Allergy/AdvReac Type Severity Reaction Status Date / Time enoxaparin sodium Allergy Unknown RED LUMPS Verified 10/14/20 17:18 [From Lovenox] ON ABDOMEN AT INJECTION SITES erythromycin base Allergy Unknown Rash/Hives Verified 10/14/20 17:18 latex Allergy Unknown Itching Verified 10/14/20 17:18 morphine Allergy Rash/Hives Verified 10/14/20 17:18 Sulfa (Sulfonamide Allergy Anaphylaxis Verified 10/14/20 17:18 Antibiotics) tetracycline [Tetracycline] Allergy Rash/Hives Verified 10/14/20 17:18 adhesive AdvReac Rash/Hives Verified 10/14/20 17:18 metformin AdvReac Diarrhea Verified 10/14/20 17:18 pioglitazone [From Actos] AdvReac Swelling Verified 10/14/20 17:18 Physical Exam Vitals: Vital Signs Temp Pulse Pulse Resp BP BP Pulse Ox 10/23/20 07:00 98.3 F 58 L 16 104/60 97 10/23/20 03:12 97.7 F 58 L 16 131/73 98 10/23/20 01:51 63 18 114/62 96 10/23/20 00:54 68 18 164/77 98 10/22/20 22:31 81 17 144/81 99 10/22/20 19:56 98.2 F 84 18 147/77 100 Intake and Output 10/22/20 10/23/20 10/23/20 22:59 06:59 14:59 Other: # Voids 1 Weight 72.121 kg 72.121 kg General appearance: The patient is alert, oriented, appears in no acute distress. HET: Head is normocephalic and atraumatic. Conjunctiva pink. Sclera anicteric. Neck: Supple without lymphadenopathy. Trachea midline. Heart: S1 S2. Regular rate and rhythm. Lungs: Clear to auscultation. Abdomen: Soft, right lower quadrant tenderness,, nondistended with bowel sounds. No guarding or rigidity. Skin: No rashes. No jaundice. Extremities: Normal skin color and turgor. No pedal edema. Neurological: No focal deficits. Alert and oriented 3.. Results CBC & Chem 7: 10/22/20 20:33 10/22/20 20:33 Labs: Abnormal Lab Results - Last 24 Hours (Table) 10/22/20 Range/Units 20:33 Sodium 136 L (137-145) mmol/L Creatinine 0.48 L (0.52-1.04) mg/dL Glucose 112 H (74-99) mg/dL Total Bilirubin 0.1 L (0.2-1.3) mg/dL Total Protein 5.9 L (6.3-8.2) g/dL CT scan - abdomen: report reviewed (subsegmental atelectasis at lung bases. No cause for right lower quadrant pain. Normal appendix) Assessment and Plan (1) Abdominal pain Narrative/Plan: 70-year-old female who presented to the emergency department yesterday with complaints of right lower quadrant abdominal pain, vomiting 1 day, and diarrhea which she states has been going on for 2-3 weeks after she eats. Patient states she had her gallbladder out a few years ago whenever since then she's had loose bowels with certain food she eats. States the abdominal pain started a couple days ago and is located in her right lower quadrant. She states that she was told before she had appendicitis but they did not remove her appendix. She underwent a CT of the abdomen and pelvis as part of her workup in the emergency department that she states no cause for right lower quadrant pain. Normal appendix. She does state she was here 2-3 weeks ago and underwent a cardiac catheterization and was given antibiotics during that hospitalization. She states her vomiting started yesterday she vomited approximately 4 times, none since she's been hospitalized. She is also had no diarrhea since she's been to the hospital. She denies any rectal bleeding or blood in her stool. No hemate mesis or coffee-ground emesis. EGD was approximately 5 years ago which she states was normal. She underwent a colonoscopy 2-[address] Woodard at [facility] which she states was significant for a colon polyp and internal hemorrhoids. Likely we are dealing with gastritis. There are no plans for any endoscopic evaluation. CT of the abdomen was normal. LFTs are normal. Current Visit: Yes Status: Acute Code(s): R10.9 - UNSPECIFIED ABDOMINAL PAIN SNOMED Code(s): 53803676 (2) Diarrhea Current Visit: Yes Status: Acute Code(s): R19.7 - DIARRHEA, UNSPECIFIED SNOMED Code(s): 64474256 Plan: 1. May have a regular diet 2. Hhoifibd77 mg daily, can continue Pepcid 20 mg at at bedtime 3. CT of abdomen and pelvis reviewed 4. Antiemetics as needed 5. C. diff, stool studies ordered 6. No plans on endoscopic evaluation, patient had colonoscopy 2-[address] Woodard Thank you for this consultation, we will continue to follow. Patient otherwise may be discharged when deemd medically stable. Dr. Torres I agree with the dictator's note, documented as a scribe by Kaci PANDYA.
--- NOTE | 2020-10-23 15:48 | P.HPIM ---
History of Present Illness H&P Date: 10/23/20 This is a 70-year-old female who was recently admitted with abdominal pain along with nausea and vomiting and multiple episodes of diarrhea over the last few weeks. Patient states that the abdominal pain worsened after the vomiting started yesterday and reports to over 4 episodes of vomiting with extreme nausea. Patient is having lower right and left quadrant pain and tenderness on palpation. Patient underwent CT abdomen showing clips from a past medical history of cholecystectomy and bile ducts nondilated with no adrenal mass with no hydronephrosis noted and appendix appears normal. No free fluid noted in the pelvis as well along with no bowel obstruction. GI evaluated the patient and ordered stool studies along with C. diff as patient stated she was having multiple episodes of diarrhea over the last few weeks. Patient recently was hospitalized and underwent cardiac catheterization and did receive antibiotics prior to the procedure. Patient was also recently hospitalized at [facility] and was seen by surgery and underwent colonoscopy with findings of a polyp and internal hemorrhoids noted. She denies any bleeding noted in the stool or emesis. Patient did not have any further episodes of vomiting noted until this afternoon after starting clear liquids and was also not having any episodes of diarrhea until the vomiting started again. She denies any chest pain, shortness of breath, or palpitations. Patient is afebrile. Review of Systems Constitutional: Denies chills, Denies fever Eyes: denies blurred vision, denies loss of vision Ears: deny: decreased hearing, ear discharge, earache, tinnitus Ears, nose, mouth and throat: Denies headache, Denies sore throat Cardiovascular: Denies chest pain, Denies shortness of breath Respiratory: Denies cough Gastrointestinal: Reports abdominal pain, Reports change in bowel habits, Reports diarrhea, Reports nausea, Reports vomiting Genitourinary: Denies dysuria, Denies hematuria Musculoskeletal: Denies myalgias Integumentary: Denies pruritus, Denies rash Neurological: Denies numbness, Denies weakness Psychiatric: Reports anxiety Endocrine: Denies fatigue, Denies weight change Past Medical History Past Medical History: Asthma, COPD, Diabetes Mellitus, Deep Vein Thrombosis (DVT), Eye Disorder, GERD/Reflux, Hypertension, Osteoarthritis (OA), Pneumonia, Skin Disorder, Sleep Apnea/CPAP/BIPAP, Thyroid Disorder Additional Past Medical History / Comment(s): Hx GLAUCOMA, TMJ, RENAL CALCULI, UTIs, DVT X 5 ( STATES CAUSED BY CONTROL PILLS AND HORMONES), USES BI-PAP MACHINE., [place], HAND TREMORS, STATES DIABETES RESOLVED WITH WT LOSS- WATCHES DIET. History of Any Multi-Drug Resistant Organisms: None Reported Past Surgical History: Back Surgery, Bladder Surgery, Breast Surgery, Heart Catheterization, Hysterectomy, Joint Replacement, Orthopedic Surgery, Tonsillectomy Additional Past Surgical History / Comment(s): 04/17/16 arthrotomy removal olecranon spur and loose bodies R elbow. , RIGHT TOTAL HIP, LAPAROSCOPY, BREAST BIOPSY, JULIANNE CARPAL TUNNEL, JULIANNE KNEE REPLACEMENT, JULIANNE ROTATOR CUFF REPAIR, LEFT FOOT SURG. Past Anesthesia/Blood Transfusion Reactions: Postoperative Nausea & Vomiting (PONV) Past Psychological History: No Psychological Hx Reported Additional Psychological History / Comment(s): Pt lives alone. Using walker., uses bus for transportation Smoking Status: Never smoker Past Alcohol Use History: Rare Past Drug Use History: None Reported - Past Family History Mother Family Medical History: Hyperlipidemia, Hypertension Additional Family Medical History / Comment(s): Mother is 91 yrs old. Father Family Medical History: Osteoarthritis (OA) Sister(s) Family Medical History: Pulmonary Embolus Medications and Allergies Home Medications Medication Instructions Recorded Confirmed Type Fluticasone Propionate [Flovent 1 puff INHALATION RT-DAILY PRN 10/02/13 10/22/20 History Diskus] Levothyroxine Sodium [Synthroid] 150 mcg PO SUTUTHSA 10/02/13 10/22/20 History Levothyroxine Sodium [Synthroid] 175 mcg PO MOWEFR 10/02/13 10/22/20 History Montelukast [Singulair] 10 mg PO HS@199910/02/13 10/22/20 History Nitroglycerin Sl Tabs [Nitrostat] 0.4 mg SL Q5M PRN 10/02/13 10/22/20 History Apixaban [Eliquis] 2.5 mg PO BID@799,199909/29/19 10/22/20 History Aspirin [Adult Low Dose Aspirin EC] 81 mg PO DAILY@79909/29/19 10/22/20 History Dicyclomine [Bentyl] 20 mg PO DAILY@79909/29/19 10/22/20 History Multivit with Calcium,Iron,Min 1 tab PO DAILY@79909/29/19 10/22/20 History [Women's Multivitamin] Potassium Chloride ER [K-Dur 20] 60 meq PO DAILY@79902/09/20 10/22/20 History Zinc 50 mg PO DAILY@79902/09/20 10/22/20 History Potassium Chloride ER [K-Dur 20] 40 meq PO HS@199905/15/20 10/22/20 History Primidone [Mysoline] 300 mg PO HS@199905/15/20 10/22/20 History Acetaminophen-Codeine 300-30mg 1 tab PO TID PRN #20 tab 05/22/20 10/22/20 Rx [Tylenol w/codeine #3] Dicyclomine [Bentyl] 40 mg PO HS@199909/25/20 10/22/20 History Famotidine 20 mg PO HS@199909/25/20 10/22/20 History Sertraline [Zoloft] 50 mg PO DAILY@79909/25/20 10/22/20 History Cyclobenzaprine [Flexeril] 5 mg PO BID PRN tab 09/26/20 10/22/20 Rx Gabapentin [Neurontin] 300 mg PO BID@08,199910/14/20 10/22/20 History Econazole Nitrate [Econazole 1 applic TOPICAL BID 10/22/20 10/22/20 History Nitrate 1%] HYDROcodone/APAP 5-325MG [[place] 1 tab PO QID PRN 10/22/20 10/22/20 History 5-325] Meclizine [Antivert] 12.5 mg PO DAILY PRN 10/22/20 10/22/20 History Ondansetron Odt [Zofran Odt] 4 mg PO Q8HR PRN #20 tab 10/23/20 Rx Allergies Allergy/AdvReac Type Severity Reaction Status Date / Time enoxaparin sodium Allergy Unknown RED LUMPS Verified 10/14/20 17:18 [From Lovenox] ON ABDOMEN AT INJECTION SITES erythromycin base Allergy Unknown Rash/Hives Verified 10/14/20 17:18 latex Allergy Unknown Itching Verified 10/14/20 17:18 morphine Allergy Rash/Hives Verified 10/14/20 17:18 Sulfa (Sulfonamide Allergy Anaphylaxis Verified 10/14/20 17:18 Antibiotics) tetracycline [Tetracycline] Allergy Rash/Hives Verified 10/14/20 17:18 adhesive AdvReac Rash/Hives Verified 10/14/20 17:18 metformin AdvReac Diarrhea Verified 10/14/20 17:18 pioglitazone [From Actos] AdvReac Swelling Verified 10/14/20 17:18 Physical Exam Vitals: Vital Signs Temp Pulse Pulse Resp BP BP Pulse Ox 10/23/20 07:00 98.3 F 58 L 16 104/60 97 10/23/20 03:12 97.7 F 58 L 16 131/73 98 10/23/20 01:51 63 18 114/62 96 10/23/20 00:54 68 18 164/77 98 10/22/20 22:31 81 17 144/81 99 10/22/20 19:56 98.2 F 84 18 147/77 100 Intake and Output 10/22/20 10/23/20 10/23/20 22:59 06:59 14:59 Other: # Voids 1 Weight 72.121 kg 72.121 kg Gen: This is a 70-year-old female lying in bed awake, alert and oriented 3, well-developed, well-nourished. HEENT: Head is atraumatic, normocephalic. Pupils equal, round. Sclerae is anicteric. NECK: Supple. No JVD. No lymphadenopathy. No thyromegaly. LUNGS: Clear to auscultation. No wheezes or rhonchi. No intercostal retractions. HEART: Regular rate and rhythm. No murmur. ABDOMEN: Soft. Tender noted on palpation of the right and left lower quadrant. Bowel sounds are present. No masses. EXTREMITIES: No pedal edema. No calf tenderness. NEUROLOGICAL: Patient is awake, alert and oriented x3. Cranial nerves 2 through 12 are grossly intact. Results CBC & Chem 7: 10/22/20 20:33 10/22/20 20:33 Labs: Abnormal Lab Results - Last 24 Hours (Table) 10/22/20 Range/Units 20:33 Sodium 136 L (137-145) mmol/L Creatinine 0.48 L (0.52-1.04) mg/dL Glucose 112 H (74-99) mg/dL Total Bilirubin 0.1 L (0.2-1.3) mg/dL Total Protein 5.9 L (6.3-8.2) g/dL Thrombosis Risk Factor Assmnt - Choose All That Apply Each Factor Represents 1 point: Abnormal pulmonary function (COPD), Obesity (BMI >25) Each Risk Factor Represents 2 Points: Age 61-74 years Thrombosis Risk Factor Assessment Total Risk Factor Score: 4 Thrombosis Risk Factor Assessment Level: Moderate Risk Assessment and Plan Assessment: Abdominal pain, etiology unclear most likely possible gastritis. CT abdomen was normal Nausea and vomiting, multiple episodes 1 day and unable to tolerate oral intake Diarrhea, ongoing for the last 2-3 weeks and denies any bleeding noted in the stool and will obtain C. diff and stool sample for culture Hypertension continue home medications Hyperlipidemia Anxiety History of DVT already on Eliquis Obstructive sleep apnea uses CPAP machine Gastroesophageal reflux disease Diabetes mellitus type 2 DVT prophylaxis: Eliquis GI prophylaxis: protonix Full code Plan: Continue with anti-emetics as needed. Patient was not having any further episodes of vomiting but continued with nausea until clear liquids started and then patient unable to tolerate and began vomiting. Patient was also not having any further episodes of diarrhea since admission and initially was unable to col lect a sample to send although when the vomiting started patient also having episodes of diarrhea and will send sample. CT abdomen and pelvis was done and was negative with appendix being normal and patient states she was told previously a few years ago that her appendix was going to be removed and was never done. Patient continues to have right lower quadrant abdominal discomfort and denies any burning or difficulty urinating. GI evaluated the patient and patient recently underwent colonoscopy not recommending any endoscopic interventions at this time. Will continue to monitor and continue with clear liquids and advance as tolerated. Anticipate discharge in 24 hours. Time with Patient: Greater than 30
[2020-10-23] MEDS ORDERED: DICYCLOMINE 20 MG TAB PO SCH (20:00)
[2020-10-23] MEDS ORDERED: MONTELUKAST 10 MG TAB PO SCH (20:00)
[2020-10-23] MEDS ORDERED: FAMOTIDINE 20 MG TAB PO SCH (20:00)
[2020-10-23] MEDS ORDERED: POTASSIUM CHLORIDE ER 20 MEQ TAB.ER PO SCH (20:00)
[2020-10-23] MEDS: GABAPENTIN 300 MG CAP PO SCH (21:00)
[2020-10-23] MEDS: CLOTRIMAZOLE 1% CREAM 30 GM TUBE TOPICAL SCH (21:00)
[2020-10-23] MEDS: APIXABAN 2.5 MG TABLET PO SCH (21:01)
[2020-10-24] MEDS: Acetaminophen-Codeine 300-30mg TAB PO PRN ×2 (01:49→08:51)
[2020-10-24 02:19] VITALS: RESP 16
[2020-10-24] MEDS: SODIUM CHLORIDE 0.9% 1,000 ML IV SCH (04:16)
[2020-10-24] MEDS ORDERED: LEVOTHYROXINE 75 MCG TAB PO SCH (06:30)
[2020-10-24] MEDS ORDERED: DICYCLOMINE 10 MG CAP PO SCH (08:00)
[2020-10-24] MEDS ORDERED: ASPIRIN 81 MG PO SCH (08:00)
[2020-10-24] MEDS ORDERED: MULTIVITAMINS, THERA 1 EACH TAB PO SCH (08:00)
[2020-10-24] MEDS ORDERED: ZINC SULFATE 220 MG CAP PO SCH (08:00)
[2020-10-24] MEDS ORDERED: SERTRALINE 50 MG TAB PO SCH (08:00)
[2020-10-24] MEDS ORDERED: POTASSIUM CHLORIDE ER 20 MEQ TAB.ER PO SCH (08:00)
[2020-10-24] MEDS: GABAPENTIN 300 MG CAP PO SCH (08:02)
[2020-10-24] MEDS: APIXABAN 2.5 MG TABLET PO SCH (08:02)
[2020-10-24] MEDS: PANTOPRAZOLE 40 MG/10 ML VIAL IVP SCH (08:03)
[2020-10-24] MEDS: CLOTRIMAZOLE 1% CREAM 30 GM TUBE TOPICAL SCH (08:03)
[2020-10-24 08:27] VITALS: BP 131/69; PULSE 66; TEMP 98.6
--- NOTE | 2020-10-24 17:08 | P.DS ---
Providers Date of admission: 10/23/20 02:28 Attending physician: Serene Cui Primary care physician: [facility] Course: 70-year-old female who was recently admitted with abdominal pain along with nausea and vomiting and multiple episodes of diarrhea over the last few weeks. Patient states that the abdominal pain worsened after the vomiting started yesterday and reports to over 4 episodes of vomiting with extreme nausea. Patient is having lower right and left quadrant pain and tenderness on palpation. Patient underwent CT abdomen showing clips from a past medical history of cholecystectomy and bile ducts nondilated with no adrenal mass with no hydronephrosis noted and appendix appears normal. No free fluid noted in the pelvis as well along with no bowel obstruction. GI evaluated the patient and ordered stool studies along with C. diff as patient stated she was having multiple episodes of diarrhea over the last few weeks. Patient recently was hospitalized and underwent cardiac catheterization and did receive antibiotics prior to the procedure. Patient was also recently hospitalized at [facility] and was seen by surgery and underwent colonoscopy with findings of a polyp and internal hemorrhoids noted. She denies any bleeding noted in the stool or emesis. Patient did not have any further episodes of vomiting noted until this afternoon after starting clear liquids and was also not having any episodes of diarrhea until the vomiting started again. She denies any chest pain, shortness of breath, or palpitations. Patient is afebrile. 10/24/2020 Patient the is able to tolerate liquid diet and soft diet well without any nausea vomiting was still complaining of abdominal pain all etiology of this abdominal pain is not clear today she is complaining of epigastric abdominal pain patient is being discharged on Protonix. PHYSICAL EXAMINATION: GENERAL: The patient is alert and oriented x3, not in any acute distress. Well developed, well nourished. HEENT: Pupils are round and equally reacting to light. EOMI. No scleral icterus. No conjunctival pallor. Normocephalic, atraumatic. No pharyngeal erythema. No thyromegaly. CARDIOVASCULAR: S1 and S2 present. No murmurs, rubs, or gallops. PULMONARY: Chest is clear to auscultation, no wheezing or crackles. ABDOMEN: Soft, nontender, nondistended, normoactive bowel sounds. No palpable organomegaly. MUSCULOSKELETAL: No joint swelling or deformity. EXTREMITIES: No cyanosis, clubbing, or pedal edema. NEUROLOGICAL: Gross neurological examination did not reveal any focal deficits. SKIN: No rashes. Assessment and Plan Assessment: Abdominal pain, etiology unclear most likely possible gastritis. CT abdomen was normal at [facility] is him is a consideration that the patient underwent extensive evaluation through her multiple hospitalizations including the present one, gastroneurology evaluated during this hospitalization as well Nausea and vomiting, multiple episodes 1 day and unable to tolerate oral intake Diarrhea, ongoing for the last 2-3 weeks and denies any bleeding noted in the stool , negative for C. diff patient is not dehydrated Hypertension continue home medications Hyperlipidemia Anxiety History of DVT already on Eliquis Obstructive sleep apnea uses CPAP machine Gastroesophageal reflux disease Diabetes mellitus type 2 Patient Condition at Discharge: Serious Plan - Discharge Summary Discharge Rx Participant: No New Discharge Prescriptions: New Ondansetron Odt [Zofran Odt] 4 mg PO Q8HR PRN #20 tab PRN Reason: Nausea Continue Fluticasone Propionate [Flovent Diskus] 1 puff INHALATION RT-DAILY PRN PRN Reason: Shortness Of Breath Montelukast [Singulair] 10 mg PO HS@2000 Levothyroxine Sodium [Synthroid] 150 mcg PO SUTUTHSA Levothyroxine Sodium [Synthroid] 175 mcg PO MOWEFR Nitroglycerin Sl Tabs [Nitrostat] 0.4 mg SL Q5M PRN PRN Reason: chest pain Dicyclomine [Bentyl] 20 mg PO DAILY@0800 Apixaban [Eliquis] 2.5 mg PO BID@0800,2000 Multivit with Calcium,Iron,Min [Women's Multivitamin] 1 tab PO DAILY@0800 Aspirin [Adult Low Dose Aspirin EC] 81 mg PO DAILY@0800 Potassium Chloride ER [K-Dur 20] 60 meq PO DAILY@0800 Zinc 50 mg PO DAILY@0800 Potassium Chloride ER [K-Dur 20] 40 meq PO HS@2000 Primidone [Mysoline] 300 mg PO HS@2000 Acetaminophen-Codeine 300-30mg [Tylenol w/codeine #3] 1 tab PO TID PRN #20 tab PRN Reason: Pain Sertraline [Zoloft] 50 mg PO DAILY@0800 Famotidine 20 mg PO HS@2000 Dicyclomine [Bentyl] 40 mg PO HS@2000 Cyclobenzaprine [Flexeril] 5 mg PO BID PRN tab PRN Reason: Muscle Spasm Gabapentin [Neurontin] 300 mg PO BID@ HYDROcodone/APAP 5-325MG [Bailey 5-325] 1 tab PO QID PRN PRN Reason: Pain Meclizine [Antivert] 12.5 mg PO DAILY PRN PRN Reason: Vertigo Econazole Nitrate [Econazole Nitrate 1%] 1 applic TOPICAL BID Discharge Medication List Fluticasone Propionate [Flovent Diskus] 1 puff INHALATION RT-DAILY PRN 10/02/13 [History] Levothyroxine Sodium [Synthroid] 150 mcg PO SUTUTHSA 10/02/13 [History] Levothyroxine Sodium [Synthroid] 175 mcg PO MOWEFR 10/02/13 [History] Montelukast [Singulair] 10 mg PO HS@199910/02/13 [History] Nitroglycerin Sl Tabs [Nitrostat] 0.4 mg SL Q5M PRN 10/02/13 [History] Apixaban [Eliquis] 2.5 mg PO BID@799,199909/29/19 [History] Aspirin [Adult Low Dose Aspirin EC] 81 mg PO DAILY@79909/29/19 [History] Dicyclomine [Bentyl] 20 mg PO DAILY@79909/29/19 [History] Multivit with Calcium,Iron,Min [Women's Multivitamin] 1 tab PO DAILY@79909/29/19 [History] Potassium Chloride ER [K-Dur 20] 60 meq PO DAILY@79902/09/20 [History] Zinc 50 mg PO DAILY@79902/09/20 [History] Potassium Chloride ER [K-Dur 20] 40 meq PO HS@199905/15/20 [History] Primidone [Mysoline] 300 mg PO HS@199905/15/20 [History] Acetaminophen-Codeine 300-30mg [Tylenol w/codeine #3] 1 tab PO TID PRN #20 tab 05/22/20 [Rx] Dicyclomine [Bentyl] 40 mg PO HS@199909/25/20 [History] Famotidine 20 mg PO HS@199909/25/20 [History] Sertraline [Zoloft] 50 mg PO DAILY@79909/25/20 [History] Cyclobenzaprine [Flexeril] 5 mg PO BID PRN tab 09/26/20 [Rx] Gabapentin [Neurontin] 300 mg PO BID@0800,2000 10/14/20 [History] Econazole Nitrate [Econazole Nitrate 1%] 1 applic TOPICAL BID 10/22/20 [History] HYDROcodone/APAP 5-325MG [Bailey 5-325] 1 tab PO QID PRN 10/22/20 [History] Meclizine [Antivert] 12.5 mg PO DAILY PRN 10/22/20 [History] Ondansetron Odt [Zofran Odt] 4 mg PO Q8HR PRN #20 tab 10/23/20 [Rx] Follow up Appointment(s)/Referral(s): Karrie Lee PAC [REFERRING] - 11/18/20 8:30 am Josy Man MD [Primary Care Provider] - 1-2 days Ambulatory/Diagnostic Orders: Miscellaneous Lab Order [LAB.AMB] Location: None Selected Patient Instructions/Handouts: Acute Nausea and Vomiting (DC), Acute Abdominal Pain (DC) Activity/Diet/Wound Care/Special Instructions: Increase fluid intake. Return with stool sample. Follow-up with the primary care physician for recheck in 1-2 days. Return for any new, worsening, or concerning symptoms. Continue clear liquid diet for the next few days and slowly advance to low fiber as tolerated Continue Zofran as needed for nausea Follow-up with GI outpatient november 18 at 830AM follow Up with your primary care provider upon discharge Discharge Disposition: HOME SELF-CARE
== END 2020-10-24 13:31 | disposition home or self-care (01) ==
LOC: EC 19:56 → 6NMEDSUR 10-23 02:28
PROVIDERS: ADMIT Hospitalist; ATTEND Hospitalist
DX: R10.31 Right lower quadrant pain (principal); R11.2 Nausea with vomiting, unspecified; R19.7 Diarrhea, unspecified; K62.5 Hemorrhage of anus and rectum; I10 Essential (primary) hypertension; E78.5 Hyperlipidemia, unspecified; F41.9 Anxiety disorder, unspecified; G47.33 Obstructive sleep apnea (adult) (pediatric); K21.9 Gastro-esophageal reflux disease without esophagitis; E11.9 Type 2 diabetes mellitus without complications; J44.9 Chronic obstructive pulmonary disease, unspecified; E03.9 Hypothyroidism, unspecified; M19.90 Unspecified osteoarthritis, unspecified site; M24.021 Loose body in right elbow; L98.9 Disorder of the skin and subcutaneous tissue, unspecified; Z79.01 Long term (current) use of anticoagulants; Z79.51 Long term (current) use of inhaled steroids; Z79.82 Long term (current) use of aspirin; Z79.890 Hormone replacement therapy; Z79.899 Other long term (current) drug therapy; Z88.1 Allergy status to other antibiotic agents; Z88.2 Allergy status to sulfonamides; Z88.5 Allergy status to narcotic agent; Z91.040 Latex allergy status; Z88.8 Allergy status to other drugs, medicaments and biological substances; Z91.048 Other nonmedicinal substance allergy status; Z87.442 Personal history of urinary calculi; Z86.010 Personal history of colon polyps; Z96.653 Presence of artificial knee joint, bilateral; Z87.01 Personal history of pneumonia (recurrent); Z90.710 Acquired absence of both cervix and uterus; Z87.19 Personal history of other diseases of the digestive system; Z90.49 Acquired absence of other specified parts of digestive tract; Z86.718 Personal history of other venous thrombosis and embolism; Z86.69 Personal history of other diseases of the nervous system and sense organs; Z82.61 Family history of arthritis; Z82.49 Family history of ischemic heart disease and other diseases of the circulatory system; Z83.2 Family history of diseases of the blood and blood-forming organs and certain disorders involving the immune mechanism
CPT/HCPCS: 96376 ×4; 96375 ×2; 96361; 96374; 99285; 36415; 80053; 83690; 84484; 85025; 81003; 87045; 83630; 87046; 71046; 74177; G0378 ×2; J2060; J2405 ×2; J1170 ×3; C9113 ×2; Q9967; 93005

== ENCOUNTER 2020-12-05 10:54 | Emergency (ER) | payer MEDICARE, OTHER ==
[2020-12-05 11:02] LABS: Glucose,Whole Blood 137 mg/dL (75-99)
[2020-12-05 11:08] VITALS: TEMP 98.5
[2020-12-05] MEDS ORDERED: SODIUM CHLORIDE 0.9% 1,000 ML IV STA (11:44)
--- NOTE | 2020-12-05 12:05 | ED ---
General Adult HPI - General Chief complaint: Nausea/Vomiting/Diarrhea Stated complaint: nausea Time Seen by Provider: 12/05/20 11:05 Source: patient, RN notes reviewed, old records reviewed Mode of arrival: wheelchair Limitations: no limitations - History of Present Illness Initial comments: This is a 70-year-old female who presents to the emergency department after she felt like she might pass out. Patient states she did not however pass out. Patient states she was here for a barium swallow test and she drink the barium became nauseous and vomited right after that she felt lightheaded and thought she might pass out. Patient denies any chest pain difficult breathing shortness of breath per patient denies any fever chills or cough. Patient denies any headache patient denies any numbness or focal weakness. Patient denies any current abdominal pain. Patient states she is no longer nauseated. Patient states she has been having an issue with vomiting. Gastric reflux and some diarrhea so she may be dehydrated. - Related Data Home Medications Medication Instructions Recorded Confirmed Fluticasone Propionate [Flovent 1 puff INHALATION RT-DAILY PRN 10/02/13 12/05/20 Diskus] Levothyroxine Sodium [Synthroid] 150 mcg PO SUTUTHSA 10/02/13 12/05/20 Levothyroxine Sodium [Synthroid] 175 mcg PO MOWEFR 10/02/13 12/05/20 Montelukast [Singulair] 10 mg PO HS@199910/02/13 12/05/20 Nitroglycerin Sl Tabs [Nitrostat] 0.4 mg SL Q5M PRN 10/02/13 12/05/20 Apixaban [Eliquis] 2.5 mg PO BID@08,199909/29/19 12/05/20 Aspirin [Adult Low Dose Aspirin EC] 81 mg PO DAILY@79909/29/19 12/05/20 Dicyclomine [Bentyl] 20 mg PO DAILY@79909/29/19 12/05/20 Multivit with Calcium,Iron,Min 1 tab PO DAILY@79909/29/19 12/05/20 [Women's Multivitamin] Potassium Chloride ER [K-Dur 20] 60 meq PO DAILY@79902/09/20 12/05/20 Zinc 50 mg PO DAILY@79902/09/20 12/05/20 Potassium Chloride ER [K-Dur 20] 40 meq PO HS@199905/15/20 12/05/20 Primidone [Mysoline] 300 mg PO HS@199905/15/20 12/05/20 Dicyclomine [Bentyl] 40 mg PO HS@199909/25/20 12/05/20 Sertraline [Zoloft] 50 mg PO DAILY@0809/25/20 12/05/20 Gabapentin [Neurontin] 300 mg PO BID@799,199910/14/20 12/05/20 Econazole Nitrate [Econazole 1 applic TOPICAL BID 10/22/20 12/05/20 Nitrate 1%] HYDROcodone/APAP 5-325MG [Eastman 1 tab PO QID PRN 10/22/20 12/05/20 5-325] Meclizine [Antivert] 12.5 mg PO DAILY PRN 10/22/20 12/05/20 Diphenoxylate HCl/Atropine 2 tab PO BID 12/05/20 12/05/20 [Lomotil 2.5-0.025 mg Tablet] Famotidine 20 mg PO HS@199912/05/20 12/05/20 Loperamide [Imodium] 2 mg PO QID PRN 12/05/20 12/05/20 Previous Rx's Medication Instructions Recorded Acetaminophen-Codeine 300-30mg 1 tab PO TID PRN #20 tab 05/22/20 [Tylenol w/codeine #3] Cyclobenzaprine [Flexeril] 5 mg PO BID PRN tab 09/26/20 Ondansetron Odt [Zofran Odt] 4 mg PO Q8HR PRN #20 tab 10/23/20 Allergies Allergy/AdvReac Type Severity Reaction Status Date / Time enoxaparin sodium Allergy Unknown RED LUMPS Verified 12/05/20 13:24 [From Lovenox] ON ABDOMEN AT INJECTION SITES erythromycin base Allergy Unknown Rash/Hives Verified 12/05/20 13:24 latex Allergy Unknown Itching Verified 12/05/20 13:24 adhesive Allergy Rash/Hives Verified 12/05/20 13:24 morphine Allergy Rash/Hives Verified 12/05/20 13:24 pioglitazone [From Actos] Allergy Swelling Verified 12/05/20 13:24 Sulfa (Sulfonamide Allergy Anaphylaxis Verified 12/05/20 13:24 Antibiotics) tetracycline [Tetracycline] Allergy Rash/Hives Verified 12/05/20 13:24 metformin AdvReac Diarrhea Verified 12/05/20 13:24 Review of Systems ROS Statement: Those systems with pertinent positive or pertinent negative responses have been documented in the HPI. ROS Other: All systems not noted in ROS Statement are negative. Past Medical History Past Medical History: Asthma, COPD, Diabetes Mellitus, Deep Vein Thrombosis (DVT), Eye Disorder, GERD/Reflux, Hypertension, Osteoarthritis (OA), Pneumonia, Skin Disorder, Sleep Apnea/CPAP/BIPAP, Thyroid Disorder Additional Past Medical History / Comment(s): Hx GLAUCOMA, TMJ, RENAL CALCULI, UTIs, DVT X 5 ( STATES CAUSED BY CONTROL PILLS AND HORMONES), USES BI-PAP MACHINE., [place], HAND TREMORS, STATES DIABETES RESOLVED WITH WT LOSS- WATCHES DIET. History of Any Multi-Drug Resistant Organisms: None Reported Past Surgical History: Back Surgery, Bladder Surgery, Breast Surgery, Heart Catheterization, Hysterectomy, Joint Replacement, Orthopedic Surgery, Tonsillectomy Additional Past Surgical History / Comment(s): 04/17/16 arthrotomy removal olecranon spur and loose bodies R elbow. , RIGHT TOTAL HIP, LAPAROSCOPY, BREAST BIOPSY, JULIANNE CARPAL TUNNEL, JULIANNE KNEE REPLACEMENT, JULIANNE ROTATOR CUFF REPAIR, LEFT FOOT SURG. Past Anesthesia/Blood Transfusion Reactions: Postoperative Nausea & Vomiting (PONV) Past Psychological History: No Psychological Hx Reported Smoking Status: Never smoker Past Alcohol Use History: Rare Past Drug Use History: None Reported - Past Family History Mother Family Medical History: Hyperlipidemia, Hypertension Additional Family Medical History / Comment(s): Mother is 91 yrs old. Father Family Medical History: Osteoarthritis (OA) Sister(s) Family Medical History: Pulmonary Embolus General Exam - General Exam Comments Initial Comments: GENERAL: Patient is well-developed and well-nourished. Patient is nontoxic and well- hydrated and is in no acute distress. ENT: Neck is soft and supple. No significant lymphadenopathy is noted. Oropharynx is clear. Moist mucous membranes. Neck has full range of motion without eliciting any pain. EYES: The sclera were anicteric and conjunctiva were pink and moist. Extraocular movements were intact and pupils were equal round and reactive to light. Eyelids were unremarkable. PULMONARY: Unlabored respirations. Good breath sounds bilaterally. No audible rales rhonchi or wheezing was noted. CARDIOVASCULAR: There is a regular rate and rhythm without any murmurs gallops or rubs. ABDOMEN: Soft and nontender with normal bowel sounds. No palpable organomegaly was noted. There is no palpable pulsatile mass. SKIN: Skin is clear with no lesions or rashes and otherwise unremarkable. NEUROLOGIC: Patient is alert and oriented x3. Cranial nerves II through XII are grossly intact. Motor and sensory are also intact. Normal speech, volume and content. Symmetrical smile. MUSCULOSKELETAL: Normal extremities with adequate strength and full range of motion. No lower extremity swelling or edema. No calf tenderness. LYMPHATICS: No significant lymphadenopathy is noted PSYCHIATRIC: Normal psychiatric evaluation Limitations: no limitations Course Vital Signs 12/05/20 12/05/20 12/05/20 11:02 11:41 11:43 Temperature 98.5 F Pulse Rate 64 Pulse Rate [ 65 Sitting Medical Record Specialist] Pulse Rate [ Standing Medical Record Specialist ] Pulse Rate [ 61 Supine Medical Record Specialist] Respiratory 16 18 18 Rate Blood Pressure 140/73 Blood Pressure 153/86 [Right Arm Sitting] Blood Pressure [Right Arm Standing] Blood Pressure 143/68 [Right Arm Supine] O2 Sat by Pulse 99 97 97 Oximetry 12/05/20 11:45 Temperature Pulse Rate Pulse Rate [ Sitting Medical Record Specialist] Pulse Rate [ 67 Standing Medical Record Specialist ] Pulse Rate [ Supine Medical Record Specialist] Respiratory 18 Rate Blood Pressure Blood Pressure [Right Arm Sitting] Blood Pressure 140/84 [Right Arm Standing] Blood Pressure [Right Arm Supine] O2 Sat by Pulse 97 Oximetry Medical Decision Making - Medical Decision Making EKG shows a normal sinus rhythm at 60 bpm CA interval 180 QRSs 82 QT interval 416 QTC is 416. Patient's EKG does show some inverted T waves inferiorly in leads II, III, and F aVF. As he EKG changes were seen previously. After the labs came back I went into reevaluate the patient she was complaining of right lower quadrant abdominal pain which she stated his been intermittently coming on and off for the last [address] of the abdomen and pelvis showed no acute abnormality. I went back into the room patient states the pain is resolved and she feels much better. Patient will follow-up with her primary if she has been for her vomiting and diarrhea - Lab Data Result diagrams: 12/05/20 11:46 09/02/21 11:46 Lab Results 12/05/20 12/05/20 12/05/20 Range/Units 11:00 11:46 11:46 WBC 5.4 (3.8-10.6) k/uL RBC 4.72 (3.80-5.40) m/uL Hgb 14.6 (11.4-16.0) gm/dL Hct 44.5 (34.0-46.0) % MCV 94.3 (80.0-100.0) fL MCH 31.0 (25.0-35.0) pg MCHC 32.8 (31.0-37.0) g/dL RDW 13.0 (11.5-15.5) % Plt Count 214 (150-450) k/uL MPV 6.8 Neutrophils % 60 % Lymphocytes % 28 % Monocytes % 7 % Eosinophils % 3 % Basophils % 1 % Neutrophils # 3.2 (1.3-7.7) k/uL Lymphocytes # 1.5 (1.0-4.8) k/uL Monocytes # 0.4 (0-1.0) k/uL Eosinophils # 0.1 (0-0.7) k/uL Basophils # 0.0 (0-0.2) k/uL PT 10.0 (9.0-12.0) sec INR 0.9 (<1.2) APTT 23.4 (22.0-30.0) sec Sodium (137-145) mmol/L Potassium (3.5-5.1) mmol/L Chloride (98-107) mmol/L Carbon Dioxide (22-30) mmol/L Anion Gap mmol/L BUN (7-17) mg/dL Creatinine (0.52-1.04) mg/dL Est GFR (CKD-EPI)AfAm (>60 ml/min/1.73 sqM) Est GFR (CKD-EPI)NonAf (>60 ml/min/1.73 sqM) Glucose (74-99) mg/dL POC Glucose (mg/dL) 137 H (75-99) mg/dL POC Glu Cnmt ID Savanna Waddell Calcium (8.4-10.2) mg/dL Magnesium (1.6-2.3) mg/dL Total Bilirubin (0.2-1.3) mg/dL AST (14-36) U/L ALT (4-34) U/L Alkaline Phosphatase (38-126) U/L Troponin I (0.000-0.034) ng/mL Total Protein (6.3-8.2) g/dL Albumin (3.5-5.0) g/dL 12/05/20 12/05/20 Range/Units 11:46 11:46 WBC (3.8-10.6) k/uL RBC (3.80-5.40) m/uL Hgb (11.4-16.0) gm/dL Hct (34.0-46.0) % MCV (80.0-100.0) fL MCH (25.0-35.0) pg MCHC (31.0-37.0) g/dL RDW (11.5-15.5) % Plt Count (150-450) k/uL MPV Neutrophils % % Lymphocytes % % Monocytes % % Eosinophils % % Basophils % % Neutrophils # (1.3-7.7) k/uL Lymphocytes # (1.0-4.8) k/uL Monocytes # (0-1.0) k/uL Eosinophils # (0-0.7) k/uL Basophils # (0-0.2) k/uL PT (9.0-12.0) sec INR (<1.2) APTT (22.0-30.0) sec Sodium 136 L (137-145) mmol/L Potassium 4.9 (3.5-5.1) mmol/L Chloride 100 (98-107) mmol/L Carbon Dioxide 26 (22-30) mmol/L Anion Gap 10 mmol/L BUN 16 (7-17) mg/dL Creatinine 0.56 (0.52-1.04) mg/dL Est GFR (CKD-EPI)AfAm >90 (>60 ml/min/1.73 sqM) Est GFR (CKD-EPI)NonAf >90 (>60 ml/min/1.73 sqM) Glucose 133 H (74-99) mg/dL POC Glucose (mg/dL) (75-99) mg/dL POC Glu Cnmt ID Calcium 9.7 (8.4-10.2) mg/dL Magnesium 1.7 (1.6-2.3) mg/dL Total Bilirubin 0.6 (0.2-1.3) mg/dL AST 36 (14-36) U/L ALT 19 (4-34) U/L Alkaline Phosphatase 112 (38-126) U/L Troponin I <0.012 (0.000-0.034) ng/mL Total Protein 7.1 (6.3-8.2) g/dL Albumin 4.5 (3.5-5.0) g/dL Disposition Clinical Impression: Vasovagal episode Disposition: HOME SELF-CARE Condition: Good Instructions (If sedation given, give patient instructions): Hypotension (ED) Is patient prescribed a controlled substance at d/c from ED?: No Referrals: Josy Man MD [Primary Care Provider] - 1-2 days Time of Disposition: 15:16
[2020-12-05 12:11] LABS: Basophils % (A) 1 %; Eosinophils # (A) 0.1 k/uL (0-0.7); Eosinophils % (A) 3 %; HCT 44.5 % (34.0-46.0); HGB 14.6 gm/dL (11.4-16.0); Lymphocytes # (A) 1.5 k/uL (1.0-4.8); Lymphocytes % (A) 28 %; MCHC 32.8 g/dL (31.0-37.0); MCV 94.3 fL (80.0-100.0); Mean Platelet Volume 6.8; Monocytes # (A) 0.4 k/uL (0-1.0); Monocytes % (A) 7 %; Neutrophils # (A) 3.2 k/uL (1.3-7.7); Neutrophils % (A) 60 %; Platelet Count 214 k/uL (150-450); RBC 4.72 m/uL (3.80-5.40); WBC 5.4 k/uL (3.8-10.6)
[2020-12-05 12:18] LABS: ALT 19 U/L (4-34); AST 36 U/L (14-36); African American GFR (CKD) >90 (>60 ml/min/1.73 sqM); Albumin 4.5 g/dL (3.5-5.0); Alkaline Phosphatase 112 U/L (38-126); Anion Gap 10 mmol/L; Blood Urea Nitrogen 16 mg/dL (7-17); Calcium 9.7 mg/dL (8.4-10.2); Carbon Dioxide 26 mmol/L (22-30); Chloride 100 mmol/L (98-107); Glucose 133 mg/dL (74-99); Magnesium 1.7 mg/dL (1.6-2.3); Non-African American GFR(CKD) >90 (>60 ml/min/1.73 sqM); Sodium 136 mmol/L (137-145); Total Bilirubin 0.6 mg/dL (0.2-1.3); Total Protein 7.1 g/dL (6.3-8.2)
[2020-12-05 12:29] LABS: Potassium 4.9 mmol/L (3.5-5.1)
[2020-12-05 12:33] LABS: INR 0.9 (<1.2); Partial Thromboplastin Time 23.4 sec (22.0-30.0)
[2020-12-05] MEDS ORDERED: ONDANSETRON 4 MG/2 ML VIAL IVP STA (12:41)
--- NOTE | 2020-12-05 12:45 | XR ---
EXAMINATION TYPE: XR chest 2V DATE OF EXAM: 12/05/2020 COMPARISON: 10/23/2020 INDICATION: Chest pain and nausea confusion TECHNIQUE: Frontal and lateral views of the chest are obtained. FINDINGS: The heart size is normal. The pulmonary vasculature is normal. The lungs are clear. IMPRESSION: 1. No acute pulmonary process.
[2020-12-05] MEDS ORDERED: HYDROmorphone 0.5 MG/0.5 ML SYRINGE IVP STA (13:54)
--- NOTE | 2020-12-05 15:09 | CT ---
EXAMINATION TYPE: CT abdomen pelvis w con DATE OF EXAM: 12/05/2020 HISTORY: Right lower quadrant pain. CT DLP: 1152.8mGycm Automated Exposure Control for Dose Reduction was Utilized. CONTRAST: CT scan of the abdomen and pelvis is performed without oral but with IV Contrast, patient injected wi th 100 mL of Isovue 300. COMPARISON: CT abdomen and pelvis October 22, 2020 FINDINGS: LUNG BASES: Dependent atelectasis. LIVER/GB: Cholecystectomy clips redemonstrated. PANCREAS: No significant abnormality is seen. SPLEEN: No significant abnormality is seen. ADRENALS: No significant abnormality is seen. KIDNEYS: No significant abnormality is seen. BOWEL: Barium contrast from recent modified study fills distal small bowel loops causing streak artif act making evaluation suboptimal. No suspicious small or large bowel dilatation. Poor visualization o f normal or abnormal appendix but no suspicious fat stranding in the right lower quadrant at the base of cecum is identified. UTERUS/ADNEXA: Uterus is surgically absent. LYMPH NODES: No greater than 1cm abdominal or pelvic lymph nodes are appreciated. OSSEOUS STRUCTURES: Metallic hardware from bilateral hip arthroplasty causes streak artifact limiting evaluation of pelvic structures. Moderate disc space narrowing L4-L5 level redemonstrated. Laminecto my defects and spinous process resection in the lower lumbar spine. Facet arthropathy lower lumbar le vels. OTHER: No significant additional abnormality is seen. IMPRESSION: Suboptimal study without CT evidence for suspicious new or acute process.
[2020-12-05 15:20] VITALS: BP 132/59; PULSE 70; RESP 16
== END 2020-12-05 15:35 | disposition home or self-care (01) ==
LOC: EC 10:54
DX: R55 Syncope and collapse (principal); Z79.82 Long term (current) use of aspirin; Z91.040 Latex allergy status; Z88.2 Allergy status to sulfonamides; Z88.5 Allergy status to narcotic agent; Z88.1 Allergy status to other antibiotic agents; J45.909 Unspecified asthma, uncomplicated; E11.9 Type 2 diabetes mellitus without complications; Z86.718 Personal history of other venous thrombosis and embolism; K21.9 Gastro-esophageal reflux disease without esophagitis; I10 Essential (primary) hypertension; M19.90 Unspecified osteoarthritis, unspecified site; E07.9 Disorder of thyroid, unspecified; Z87.440 Personal history of urinary (tract) infections; Z87.442 Personal history of urinary calculi; Z90.710 Acquired absence of both cervix and uterus; Z90.89 Acquired absence of other organs; Z96.641 Presence of right artificial hip joint
CPT/HCPCS: 99284; 96374; 96375; 96361; 36415; 93005; 80053; 83735; 84484; 85025; 85610; 85730; 71046; 74177; J2405; J1170; Q9967

== ENCOUNTER → 2020-12-05 | Outpatient (CLI) | payer SELFPAY ==
--- NOTE | 2020-12-05 13:59 | FL ---
EXAMINATION TYPE: FL barium swallow DATE OF EXAM: 12/05/2020 COMPARISON: None HISTORY: Dysphagia TECHNIQUE: A double air contrast esophagram study is performed. FINDINGS: Esophagus dilates to normal caliber has normal contour to the gastroesophageal junction. Gastroesopha geal junction opens to a normal caliber. No intraluminal or extramural defects are evident. Patient became very lightheaded following the completion of the examination. The patient was transfer red to the emergency room for evaluation of lightheadedness IMPRESSIONS: 1. Normal esophagram
== END | disposition home or self-care (01) ==
LOC: RADUSWWP 09:38
PROVIDERS: ATTEND Family Medicine
DX: R13.10 Dysphagia, unspecified (principal)
CPT/HCPCS: 74220

== ENCOUNTER 2021-03-19 07:56 | Day surgery (SDC) | payer MEDICARE, OTHER ==
[2021-03-17 15:13] VITALS: BMI 26.6
[~2021-03-19 07:56] MED LIST changes: -DEXAMETHASONE SOD PHOSPHATE 4 MG/ML 1 ML VIAL IV ONE; -LACTATED RINGERS 1,000 ML IV SCH; -MIDAZOLAM 2 MG/2 ML VIAL IV PRN; -ONDANSETRON 4 MG/2 ML VIAL IVP ONE; -VANCOMYCIN 1,250 MG in SODIUM CHLORIDE 0.9% 250 ML IVPB PRN
[2021-03-19 08:50] VITALS: TEMP 97.9
[2021-03-19] MEDS: LACTATED RINGERS 1,000 ML IV SCH ×2 (08:54→08:55)
[2021-03-19] MEDS ORDERED: LIDOCAINE 1% INJ 10MG/ML (20 ML MDV) ONE (08:57)
[2021-03-19] MEDS ORDERED: PROPOFOL 10 MG/ML 20 ML VIAL IV ONE (08:57)
[2021-03-19 09:02] LABS: Glucose,Whole Blood 128 mg/dL (75-99)
--- NOTE | 2021-03-19 09:12 | P.PCN ---
Date of Procedure: 03/19/21 Procedure(s) Performed: BRIEF HISTORY: Patient is a 71-year-old, pleasant, white female scheduled for an upper endoscopy as a part of evaluation of nausea vomiting for the last 4 weeks' duration.. She has been on Pepcid 20 mg twice daily for gastroesophageal reflux symptoms. PROCEDURE PERFORMED: Esophagogastroduodenoscopy with biopsy. PREOPERATIVE DIAGNOSIS: Chronic intermittent nausea vomiting or 4 weeks' duration. IV sedation per anesthesia. PROCEDURE: After informed consent was obtained, the patient was brought into the endoscopy unit. IV sedation was administered by Anesthesia under continuous monitoring. Initially the Olympus GIF-140 video endoscope was inserted into the mouth. Esophagus intubated without any difficulty. It was gradually advanced into the stomach and duodenum and carefully examined. The bulb and the second part of the duodenum appeared normal. Biopsies were done from the duodenum to rule out celiac disease. The scope at this time was withdrawn to the stomach, adequately insufflated with air, and upon careful examination, mucosa of the antrum, had mild gastritis and biopsies were done from this area. The body, cardia and the fundus appeared normal. The scope was then withdrawn into the esophagus. The GE junction was located at 39 cm from the incisors. There were 2 superficial erosions at the GE junction consistent with LA grade B reflux esophagitis The rest of the esophagus appeared normal. The patient tolerated the procedure well. IMPRESSION: 1. Mild antral gastritis. 2. 2 superficial erosions at the GE junction consistent with LA grade B reflux esophagitis. RECOMMENDATIONS: The findings of this examination were discussed with the patient as well as a family. She was advised to follow with the biopsy results. She will continue with Pepcid 20 mg twice daily and follow antireflux measures. She'll be seen in office in 3-4 weeks.
[2021-03-19] MEDS ORDERED: IV FLUID CONTINUATION 750 ML IV ONE (09:15)
[2021-03-19] MEDS ORDERED: ONDANSETRON 4 MG/2 ML VIAL ONE (09:38)
[2021-03-19 09:45] VITALS: BP 121/76; PULSE 60; RESP 20
== END 2021-03-19 10:34 | disposition home or self-care (01) ==
LOC: ORWHC2ENDO 07:56
PROVIDERS: ATTEND Internal Medicine Gastroenterology
DX: K29.70 Gastritis, unspecified, without bleeding (principal); K21.00 Gastro-esophageal reflux disease with esophagitis, without bleeding
CPT/HCPCS: 43239; 88305; J2405; J2001; J2704

== ENCOUNTER 2021-04-25 22:45 | Observation (INO) | payer MEDICARE, OTHER ==
[2021-04-25] MEDS ORDERED: SODIUM CHLORIDE 0.9% 1,000 ML IV STA (22:48)
[2021-04-25] MEDS ORDERED: HYDROmorphone 0.5 MG/0.5 ML SYRINGE IVP STA (22:50)
--- NOTE | 2021-04-25 23:06 | ED ---
Recheck HPI - General Chief Complaint: Wound/Laceration Stated Complaint: R Foot Infection Time Seen by Provider: 04/25/21 22:47 Source: patient, EMS, RN notes reviewed, old records reviewed Mode of arrival: EMS Limitations: physical limitation - History of Present Illness Initial Comments: This is a 71-year-old female to the emergency department for evaluation. Patient presents today for evaluation regards to presented today for both pain control and antibiotic therapy. Patient was recently seen and evaluated found of MRSA of the right foot. Patient states the pain is significant significantly increasing. She has been unable to start her antibiotic treatment. Patient states she can't walk she can't get around her house does not feel like she is safe at home. Patient does have underlying history of diabetes MD Complaint: wound re-check -: days(s) Returns Today for: persistent/worsening pain related to initial visit Symptoms Since Prior Visit: worsening pain, worsening redness, worsening discharge Associated Symptoms: none Treatments Prior to Arrival: Given Pain Meds on - Related Data Home Medications Medication Instructions Recorded Confirmed Fluticasone Propionate [Flovent 1 puff INHALATION RT-DAILY PRN 10/02/13 03/17/21 Diskus] Levothyroxine Sodium [Synthroid] 150 mcg PO SUTUTHSA 10/02/13 03/17/21 Levothyroxine Sodium [Synthroid] 175 mcg PO MOWEFR 10/02/13 03/17/21 Montelukast [Singulair] 10 mg PO HS@199910/02/13 03/17/21 Nitroglycerin Sl Tabs [Nitrostat] 0.4 mg SL Q5M PRN 10/02/13 03/17/21 Apixaban [Eliquis] 2.5 mg PO BID@08,199909/29/19 03/17/21 Aspirin [Adult Low Dose Aspirin EC] 81 mg PO DAILY@79909/29/19 03/17/21 Dicyclomine [Bentyl] 20 mg PO DAILY@79909/29/19 03/17/21 Multivit with Calcium,Iron,Min 1 tab PO DAILY@0800 09/29/19 03/17/21 [Women's Multivitamin] Potassium Chloride ER [K-Dur 20] 60 meq PO DAILY@0800 02/09/20 03/17/21 Zinc 50 mg PO DAILY@0802/09/20 03/17/21 Potassium Chloride ER [K-Dur 20] 40 meq PO HS@199905/15/20 03/17/21 Primidone [Mysoline] 300 mg PO HS@199905/15/20 03/17/21 Dicyclomine [Bentyl] 40 mg PO HS@199909/25/20 03/17/21 Sertraline [Zoloft] 50 mg PO DAILY@0809/25/20 03/17/21 Gabapentin [Neurontin] 300 mg PO BID@08,199910/14/20 03/17/21 Econazole Nitrate [Econazole 1 applic TOPICAL BID 10/22/20 03/17/21 Nitrate 1%] Meclizine [Antivert] 12.5 mg PO DAILY PRN 10/22/20 03/17/21 Diphenoxylate HCl/Atropine 2 tab PO BID 12/05/20 03/17/21 [Lomotil 2.5-0.025 mg Tablet] Famotidine 20 mg PO HS@199912/05/20 03/17/21 Loperamide [Imodium] 2 mg PO QID PRN 12/05/20 03/17/21 cefaDROXiL [Duricef] 500 mg PO BID 03/17/21 03/17/21 Previous Rx's Medication Instructions Recorded Acetaminophen-Codeine 300-30mg 1 tab PO TID PRN #20 tab 05/22/20 [Tylenol w/codeine #3] Cyclobenzaprine [Flexeril] 5 mg PO BID PRN tab 09/26/20 Ondansetron Odt [Zofran Odt] 4 mg PO Q8HR PRN #20 tab 10/23/20 Allergies Allergy/AdvReac Type Severity Reaction Status Date / Time enoxaparin sodium Allergy Unknown RED LUMPS Verified 03/19/21 08:34 [From Lovenox] ON ABDOMEN AT INJECTION SITES erythromycin base Allergy Unknown Rash/Hives Verified 03/19/21 08:34 latex Allergy Unknown Itching Verified 03/19/21 08:34 adhesive Allergy Rash/Hives Verified 03/19/21 08:34 morphine Allergy Rash/Hives Verified 03/19/21 08:34 pioglitazone [From Actos] Allergy Swelling Verified 03/19/21 08:34 Sulfa (Sulfonamide Allergy Anaphylaxis Verified 03/19/21 08:34 Antibiotics) tetracycline [Tetracycline] Allergy Rash/Hives Verified 03/19/21 08:34 metformin AdvReac Diarrhea Verified 03/19/21 08:34 Review of Systems ROS Statement: Those systems with pertinent positive or pertinent negative responses have been documented in the HPI. ROS Other: All systems not noted in ROS Statement are negative. Past Medical History Past Medical History: Asthma, COPD, Diabetes Mellitus, Deep Vein Thrombosis (DVT), Eye Disorder, GERD/Reflux, Hypertension, Osteoarthritis (OA), Pneumonia, Skin Disorder, Sleep Apnea/CPAP/BIPAP, Thyroid Disorder Additional Past Medical History / Comment(s): Hx GLAUCOMA, TMJ, RENAL CALCULI, UTIs, DVT X 5 ( STATES CAUSED BY CONTROL PILLS AND HORMONES), USES BI-PAP MACHINE., [place], HAND TREMORS, STATES DIABETES RESOLVED WITH WT LOSS- WATCHES DIET. History of Any Multi-Drug Resistant Organisms: MRSA Date of last positivie culture/infection: 04/15/21 MDRO Source:: MRSA FOOT Past Surgical History: Back Surgery, Bladder Surgery, Breast Surgery, Heart Catheterization, Hysterectomy, Joint Replacement, Orthopedic Surgery, Tonsillectomy Additional Past Surgical History / Comment(s): 04/17/16 arthrotomy removal olecranon spur and loose bodies R elbow. , RIGHT TOTAL HIP, LAPAROSCOPY, BREAST BIOPSY, JULIANNE CARPAL TUNNEL, JULIANNE KNEE REPLACEMENT, JULIANNE ROTATOR CUFF REPAIR, LEFT FOOT SURG. Past Anesthesia/Blood Transfusion Reactions: Postoperative Nausea & Vomiting (PONV) Past Psychological History: No Psychological Hx Reported Smoking Status: Never smoker Past Alcohol Use History: Rare Past Drug Use History: None Reported - Past Family History Mother Family Medical History: Hyperlipidemia, Hypertension Additional Family Medical History / Comment(s): Mother is 91 yrs old. Father Family Medical History: Osteoarthritis (OA) Sister(s) Family Medical History: Pulmonary Embolus General Exam Limitations: physical limitation General appearance: alert, in no apparent distress Head exam: Present: atraumatic, normocephalic, normal inspection Eye exam: Present: normal appearance, PERRL, EOMI. Absent: scleral icterus, conjunctival injection, periorbital swelling ENT exam: Present: normal exam, mucous membranes moist Neck exam: Present: normal inspection. Absent: tenderness, meningismus, lymphadenopathy Respiratory exam: Present: normal lung sounds bilaterally. Absent: respiratory distress, wheezes, rales, rhonchi, stridor Cardiovascular Exam: Present: regular rate, normal rhythm, normal heart sounds. Absent: systolic murmur, diastolic murmur, rubs, gallop, clicks GI/Abdominal exam: Present: soft, normal bowel sounds. Absent: distended, te nderness, guarding, rebound, rigid Extremities exam: Present: tenderness (Right lateral aspect of right foot), normal capillary refill. Absent: pedal edema, joint swelling, calf tenderness Back exam: Present: normal inspection Neurological exam: Present: alert, oriented X3, CN II-XII intact Psychiatric exam: Present: normal affect, normal mood Skin exam: Present: warm, dry, intact, normal color. Absent: rash Course Vital Signs 04/25/21 22:47 Temperature 98.0 F Pulse Rate 68 Respiratory 18 Rate Blood Pressure 143/78 O2 Sat by Pulse 94 L Oximetry - Reevaluation(s) Reevaluation #1: 04/26/21 01:38 Medical record is reviewed Reevaluation #2: 04/26/21 01:39 Patient has adequate pain control currently Reevaluation #3: 04/26/21 01:39 Patient is informed of results and questions answered - Consultations Consultation #1: Spoke with Dr. HOGUE who agrees to admit this patient Medical Decision Making - Medical Decision Making 71 female to the emergency department for evaluation of severe foot pain with known history of MRSA. Patient be admitted for IV antibiotics and pain control - Lab Data Result diagrams: 04/25/21 23:16 04/25/21 23:16 Lab Results 04/25/21 04/25/21 04/25/21 Range/Units 23:15 23:16 23:16 WBC 6.5 (3.8-10.6) k/uL RBC 3.97 (3.80-5.40) m/uL Hgb 12.9 (11.4-16.0) gm/dL Hct 37.7 (34.0-46.0) % MCV 94.9 (80.0-100.0) fL MCH 32.4 (25.0-35.0) pg MCHC 34.1 (31.0-37.0) g/dL RDW 12.4 (11.5-15.5) % Plt Count 187 (150-450) k/uL MPV 6.8 Neutrophils % 56 % Lymphocytes % 31 % Monocytes % 7 % Eosinophils % 2 % Basophils % 1 % Neutrophils # 3.7 (1.3-7.7) k/uL Lymphocytes # 2.1 (1.0-4.8) k/uL Monocytes # 0.5 (0-1.0) k/uL Eosinophils # 0.2 (0-0.7) k/uL Basophils # 0.0 (0-0.2) k/uL PT 9.8 (9.0-12.0) sec INR 0.9 (<1.2) APTT 23.6 (22.0-30.0) sec Sodium (137-145) mmol/L Potassium (3.5-5.1) mmol/L Chloride (98-107) mmol/L Carbon Dioxide (22-30) mmol/L Anion Gap mmol/L BUN (7-17) mg/dL Creatinine (0.52-1.04) mg/dL Est GFR (CKD-EPI)AfAm (>60 ml/min/1.73 sqM) Est GFR (CKD-EPI)NonAf (>60 ml/min/1.73 sqM) Glucose (74-99) mg/dL Plasma Lactic Acid Fish (0.7-2.0) mmol/L Calcium (8.4-10.2) mg/dL Phosphorus (2.5-4.5) mg/dL Magnesium (1.6-2.3) mg/dL Total Bilirubin (0.2-1.3) mg/dL AST (14-36) U/L ALT (4-34) U/L Alkaline Phosphatase (38-126) U/L Troponin I (0.000-0.034) ng/mL NT-Pro-B Natriuret Pep pg/mL Total Protein (6.3-8.2) g/dL Albumin (3.5-5.0) g/dL Coronavirus (PCR) Not Detected (Not Detectd) 04/25/21 04/25/21 04/25/21 Range/Units 23:16 23:16 23:16 WBC (3.8-10.6) k/uL RBC (3.80-5.40) m/uL Hgb (11.4-16.0) gm/dL Hct (34.0-46.0) % MCV (80.0-100.0) fL MCH (25.0-35.0) pg MCHC (31.0-37.0) g/dL RDW (11.5-15.5) % Plt Count (150-450) k/uL MPV Neutrophils % % Lymphocytes % % Monocytes % % Eosinophils % % Basophils % % Neutrophils # (1.3-7.7) k/uL Lymphocytes # (1.0-4.8) k/uL Monocytes # (0-1.0) k/uL Eosinophils # (0-0.7) k/uL Basophils # (0-0.2) k/uL PT (9.0-12.0) sec INR (<1.2) APTT (22.0-30.0) sec Sodium 135 L (137-145) mmol/L Potassium 4.4 (3.5-5.1) mmol/L Chloride 101 (98-107) mmol/L Carbon Dioxide 25 (22-30) mmol/L Anion Gap 9 mmol/L BUN 14 (7-17) mg/dL Creatinine 0.62 (0.52-1.04) mg/dL Est GFR (CKD-EPI)AfAm >90 (>60 ml/min/1.73 sqM) Est GFR (CKD-EPI)NonAf >90 (>60 ml/min/1.73 sqM) Glucose 160 H (74-99) mg/dL Plasma Lactic Acid Fish 1.4 (0.7-2.0) mmol/L Calcium 9.0 (8.4-10.2) mg/dL Phosphorus 4.3 (2.5-4.5) mg/dL Magnesium 1.8 (1.6-2.3) mg/dL Total Bilirubin 0.3 (0.2-1.3) mg/dL AST 26 (14-36) U/L ALT 21 (4-34) U/L Alkaline Phosphatase 95 (38-126) U/L Troponin I <0.012 (0.000-0.034) ng/mL NT-Pro-B Natriuret Pep pg/mL Total Protein 5.9 L (6.3-8.2) g/dL Albumin 3.6 (3.5-5.0) g/dL Coronavirus (PCR) (Not Detectd) 04/25/21 Range/Units 23:16 WBC (3.8-10.6) k/uL RBC (3.80-5.40) m/uL Hgb (11.4-16.0) gm/dL Hct (34.0-46.0) % MCV (80.0-100.0) fL MCH (25.0-35.0) pg MCHC (31.0-37.0) g/dL RDW (11.5-15.5) % Plt Count (150-450) k/uL MPV Neutrophils % % Lymphocytes % % Monocytes % % Eosinophils % % Basophils % % Neutrophils # (1.3-7.7) k/uL Lymphocytes # (1.0-4.8) k/uL Monocytes # (0-1.0) k/uL Eosinophils # (0-0.7) k/uL Basophils # (0-0.2) k/uL PT (9.0-12.0) sec INR (<1.2) APTT (22.0-30.0) sec Sodium (137-145) mmol/L Potassium (3.5-5.1) mmol/L Chloride (98-107) mmol/L Carbon Dioxide (22-30) mmol/L Anion Gap mmol/L BUN (7-17) mg/dL Creatinine (0.52-1.04) mg/dL Est GFR (CKD-EPI)AfAm (>60 ml/min/1.73 sqM) Est GFR (CKD-EPI)NonAf (>60 ml/min/1.73 sqM) Glucose (74-99) mg/dL Plasma Lactic Acid Fish (0.7-2.0) mmol/L Calcium (8.4-10.2) mg/dL Phosphorus (2.5-4.5) mg/dL Magnesium (1.6-2.3) mg/dL Total Bilirubin (0.2-1.3) mg/dL AST (14-36) U/L ALT (4-34) U/L Alkaline Phosphatase (38-126) U/L Troponin I (0.000-0.034) ng/mL NT-Pro-B Natriuret Pep 105 pg/mL Total Protein (6.3-8.2) g/dL Albumin (3.5-5.0) g/dL Coronavirus (PCR) (Not Detectd) - EKG Data -: EKG Interpreted by Me (EKG shows normal sinus rhythm 66 TX 1:30 QRS 78 QTc 417) Disposition Clinical Impression: Diabetic ulcer of right foot, MRSA (methicillin resistant Staphylococcus aureus) Disposition: ADMITTED IP TO THIS HOSP Condition: Good Is patient prescribed a controlled substance at d/c from ED?: No Referrals: Josy Man MD [Primary Care Provider] - 1-2 days
[2021-04-25 23:37] LABS: Basophils % (A) 1 %; Eosinophils # (A) 0.2 k/uL (0-0.7); Eosinophils % (A) 2 %; HCT 37.7 % (34.0-46.0); HGB 12.9 gm/dL (11.4-16.0); Lymphocytes # (A) 2.1 k/uL (1.0-4.8); Lymphocytes % (A) 31 %; MCH 32.4 pg (25.0-35.0); MCHC 34.1 g/dL (31.0-37.0); MCV 94.9 fL (80.0-100.0); Mean Platelet Volume 6.8; Monocytes # (A) 0.5 k/uL (0-1.0); Monocytes % (A) 7 %; Neutrophils # (A) 3.7 k/uL (1.3-7.7); Neutrophils % (A) 56 %; Platelet Count 187 k/uL (150-450); RBC 3.97 m/uL (3.80-5.40); RDW 12.4 % (11.5-15.5); WBC 6.5 k/uL (3.8-10.6)
[2021-04-25 23:50] LABS: INR 0.9 (<1.2); Partial Thromboplastin Time 23.6 sec (22.0-30.0); Prothrombin Time 9.8 sec (9.0-12.0)
[2021-04-26 00:08] LABS: ALT 21 U/L (4-34); AST 26 U/L (14-36); African American GFR (CKD) >90 (>60 ml/min/1.73 sqM); Albumin 3.6 g/dL (3.5-5.0); Alkaline Phosphatase 95 U/L (38-126); Anion Gap 9 mmol/L; Blood Urea Nitrogen 14 mg/dL (7-17); Carbon Dioxide 25 mmol/L (22-30); Chloride 101 mmol/L (98-107); Glucose 160 mg/dL (74-99); Magnesium 1.8 mg/dL (1.6-2.3); Non-African American GFR(CKD) >90 (>60 ml/min/1.73 sqM); Phosphorus 4.3 mg/dL (2.5-4.5); Potassium 4.4 mmol/L (3.5-5.1); Sodium 135 mmol/L (137-145); Total Bilirubin 0.3 mg/dL (0.2-1.3); Total Protein 5.9 g/dL (6.3-8.2)
[2021-04-26] MEDS ORDERED: LORazepam 2 MG/ML INJ IV PRN (01:31)
[2021-04-26] MEDS ORDERED: NALOXONE 0.4 MG/ML 1 ML VIAL IV PRN (01:31)
[2021-04-26] MEDS: HYDROmorphone 0.5 MG/0.5 ML SYRINGE IVP PRN ×2 (01:46→06:17)
[2021-04-26] MEDS: SODIUM CHLORIDE 0.9% 1,000 ML IV SCH ×3 (04:00→19:20)
--- NOTE | 2021-04-26 09:14 | P.CNOR ---
History of Present Illness - [facility] Consult date: 04/26/21 History of present illness: The patient is a very pleasant 71-year-old female with multiple medical problems who is well known to our office. She is currently an established patient of both Dr. Kim who has performed multiple surgical procedures on her and Dr. Tran who is managing her feet. The patient has chronic deformities of both of her feet and recently developed a wound and infection over the lateral border of her right foot. She was seen by Dr. Tran for this this past week. Home care with wound care and antibiotics was arranged. According to Kristen her foot became increasingly painful last night. She presented to the emergency department for antibiotics and pain control. This morning she is complaining of isolated pain in her right foot. She denies fevers or chills. She has several other complaints unrelated to her feet but these are chronic and being managed by Dr. Kim on an outpatient basis. Past Medical History Past Medical History: Asthma, COPD, Diabetes Mellitus, Deep Vein Thrombosis (DVT), Eye Disorder, GERD/Reflux, Hypertension, Osteoarthritis (OA), Pneumonia, Skin Disorder, Sleep Apnea/CPAP/BIPAP, Thyroid Disorder Additional Past Medical History / Comment(s): Hx GLAUCOMA, TMJ, RENAL CALCULI, UTIs, DVT X 5 ( STATES CAUSED BY CONTROL PILLS AND HORMONES), USES BI-PAP MACHINE., [place], HAND TREMORS, STATES DIABETES RESOLVED WITH WT LOSS- WATCHES DIET. History of Any Multi-Drug Resistant Organisms: MRSA Year Discovered:: 04/15/21 MDRO Source:: MRSA FOOT Past Surgical History: Back Surgery, Bladder Surgery, Breast Surgery, Heart Catheterization, Hysterectomy, Joint Replacement, Orthopedic Surgery, Tonsillectomy Additional Past Surgical History / Comment(s): 04/17/16 arthrotomy removal olecranon spur and loose bodies R elbow. , RIGHT TOTAL HIP, LAPAROSCOPY, BREAST BIOPSY, JULIANNE CARPAL TUNNEL, JULIANNE KNEE REPLACEMENT, JULIANNE ROTATOR CUFF REPAIR, LEFT FOOT SURG. Past Anesthesia/Blood Transfusion Reactions: Postoperative Nausea & Vomiting (PONV) Past Psychological History: No Psychological Hx Reported Additional Psychological History / Comment(s): Pt lives alone. Using walker., uses bus for transportation Smoking Status: Never smoker Past Alcohol Use History: Rare Past Drug Use History: None Reported - Past Family History Mother Family Medical History: Hyperlipidemia, Hypertension Additional Family Medical History / Comment(s): Mother is 91 yrs old. Father Family Medical History: Osteoarthritis (OA) Sister(s) Family Medical History: Pulmonary Embolus Medications and Allergies Home Medications Medication Instructions Recorded Confirmed Type Fluticasone Propionate [Flovent 1 puff INHALATION RT-DAILY PRN 10/02/13 03/17/21 History Diskus] Levothyroxine Sodium [Synthroid] 150 mcg PO SUTUTHSA 10/02/13 03/17/21 History Levothyroxine Sodium [Synthroid] 175 mcg PO MOWEFR 10/02/13 03/17/21 History Montelukast [Singulair] 10 mg PO HS@199910/02/13 03/17/21 History Nitroglycerin Sl Tabs [Nitrostat] 0.4 mg SL Q5M PRN 10/02/13 03/17/21 History Apixaban [Eliquis] 2.5 mg PO BID@0800,199909/29/19 03/17/21 History Aspirin [Adult Low Dose Aspirin EC] 81 mg PO DAILY@0809/29/19 03/17/21 History Dicyclomine [Bentyl] 20 mg PO DAILY@0800 09/29/19 03/17/21 History Multivit with Calcium,Iron,Min 1 tab PO DAILY@0800 09/29/19 03/17/21 History [Women's Multivitamin] Potassium Chloride ER [K-Dur 20] 60 meq PO DAILY@0800 02/09/20 03/17/21 History Zinc 50 mg PO DAILY@0800 02/09/20 03/17/21 History Potassium Chloride ER [K-Dur 20] 40 meq PO HS@199905/15/20 03/17/21 History Primidone [Mysoline] 300 mg PO HS@199905/15/20 03/17/21 History Acetaminophen-Codeine 300-30mg 1 tab PO TID PRN #20 tab 05/22/20 03/17/21 Rx [Tylenol w/codeine #3] Dicyclomine [Bentyl] 40 mg PO HS@199909/25/20 03/17/21 History Sertraline [Zoloft] 50 mg PO DAILY@0800 09/25/20 03/17/21 History Cyclobenzaprine [Flexeril] 5 mg PO BID PRN tab 09/26/20 03/17/21 Rx Gabapentin [Neurontin] 300 mg PO BID@0800,199910/14/20 03/17/21 History Econazole Nitrate [Econazole 1 applic TOPICAL BID 10/22/20 03/17/21 History Nitrate 1%] Meclizine [Antivert] 12.5 mg PO DAILY PRN 10/22/20 03/17/21 History Ondansetron Odt [Zofran Odt] 4 mg PO Q8HR PRN #20 tab 10/23/20 03/17/21 Rx Diphenoxylate HCl/Atropine 2 tab PO BID 12/05/20 03/17/21 History [Lomotil 2.5-0.025 mg Tablet] Famotidine 20 mg PO HS@199912/05/20 03/17/21 History Loperamide [Imodium] 2 mg PO QID PRN 12/05/20 03/17/21 History cefaDROXiL [Duricef] 500 mg PO BID 03/17/21 03/17/21 History Allergies Allergy/AdvReac Type Severity Reaction Status Date / Time enoxaparin sodium Allergy Unknown RED LUMPS Verified 03/19/21 08:34 [From Lovenox] ON ABDOMEN AT INJECTION SITES erythromycin base Allergy Unknown Rash/Hives Verified 03/19/21 08:34 latex Allergy Unknown Itching Verified 03/19/21 08:34 adhesive Allergy Rash/Hives Verified 03/19/21 08:34 morphine Allergy Rash/Hives Verified 03/19/21 08:34 pioglitazone [From Actos] Allergy Swelling Verified 03/19/21 08:34 Sulfa (Sulfonamide Allergy Anaphylaxis Verified 03/19/21 08:34 Antibiotics) tetracycline [Tetracycline] Allergy Rash/Hives Verified 03/19/21 08:34 metformin AdvReac Diarrhea Verified 03/19/21 08:34 Physical Examination Patient is sitting comfortably in her bed. She is alert and oriented. Her head is normocephalic and atraumatic. She dementia is nonlabored breathing with symmetric chest expansion. Her abdomen is soft and nontender. A focused exam of the right lower extremity was conducted. There is a chronic deformity of the foot and ankle. There are calluses over the lateral border of the foot and a small open wound with mild surrounding erythema over the base of the fifth metatarsal. There is no fluctuance, ascending lymphangitis, subcutaneous crepitance, or significant pain with passive range of motion of the ankle or toes. Results - Labs Labs: Abnormal Lab Results - Last 24 Hours (Table) 04/25/21 Range/Units 23:16 Sodium 135 L (137-145) mmol/L Glucose 160 H (74-99) mg/dL Total Protein 5.9 L (6.3-8.2) g/dL H & H 04/25/21 Range/Units 23:16 Hgb 12.9 (11.4-16.0) gm/dL Hct 37.7 (34.0-46.0) % Coagulation 04/25/21 Range/Units 23:16 INR 0.9 (<1.2) Result Diagrams: 04/25/21 23:16 04/25/21 23:16 Assessment and Plan Assessment: The patient is very pleasant 71-year-old female with multiple medical problems who is admitted with a chronic deformity of the right foot and chronic ulcer and wound infection. Plan: I have no plans for acute surgical intervention at this time. The patient is presently being managed for her right foot deformity and infection by Dr. Tran on an outpatient basis. I would recommend wound care and antibiotics under the guidance of infectious disease. The patient is clear to discharge from an orthopedic standpoint and can follow-up as an outpatient with Dr. Tran for further care of her right foot.
[2021-04-26] MEDS ORDERED: NITROGLYCERIN SL TABS 0.4 MG TAB SUBLINGUAL PRN (12:43)
[2021-04-26] MEDS ORDERED: VANCOMYCIN IV PER PHARMACY 1 EACH MISC MISCELLANE PRN (12:47)
[2021-04-26] MEDS: DICYCLOMINE 10 MG CAP PO SCH ×2 (13:20→18:03)
[2021-04-26] MEDS: VANCOMYCIN 1,250 MG in SODIUM CHLORIDE 0.9% 250 ML IVPB SCH (13:36)
--- NOTE | 2021-04-26 14:12 | P.HPIM ---
History of Present Illness Patient is [id number] female came in with a possible infection of the right foot. Patient has a right foot deformity is callus in the lateral aspect of the foot with couple ulcers and some redness on the dorsal aspect of the foot around the proximal ulcer. Pulses are stage II and 3. Patient had MRSA in her recent wound cultures. Patient doesn't have any fever chills. Patient is comparing of severe. The pain in the lateral aspect of the foot REVIEW OF SYSTEMS: CONSTITUTIONAL: No fever, no malaise, no fatigue. HEENT: No recent visual problems or hearing problems. Denied any sore throat. CARDIOVASCULAR: No chest pain, orthopnea, PND, no palpitations, no syncope. PULMONARY: No shortness of breath, no cough, no hemoptysis. GASTROINTESTINAL: No diarrhea, no nausea, no vomiting, no abdominal pain. NEUROLOGICAL: No headaches, no weakness, no numbness. HEMATOLOGICAL: Denies any bleeding or petechiae. GENITOURINARY: Denies any burning micturition, frequency, or urgency. MUSCULOSKELETAL/RHEUMATOLOGICAL: As mentioned in HPI ENDOCRINE: Denies any polyuria or polydipsia. The rest of the 14-point review of systems is negative. PHYSICAL EXAMINATION: GENERAL: The patient is alert and oriented x3, not in any acute distress. Well developed, well nourished. HEENT: Pupils are round and equally reacting to light. EOMI. No scleral icterus. No conjunctival pallor. Normocephalic, atraumatic. No pharyngeal erythema. No thyromegaly. CARDIOVASCULAR: S1 and S2 present. No murmurs, rubs, or gallops. PULMONARY: Chest is clear to auscultation, no wheezing or crackles. ABDOMEN: Soft, nontender, nondistended, normoactive bowel sounds. No palpable organomegaly. MUSCULOSKELETAL: No joint swelling or deformity. EXTREMITIES: No cyanosis, clubbing, or pedal edema. Right foot deformity significant callus in the lateral aspect with 2 ulcers with some redness doesn't appear to have any significant cellulitis NEUROLOGICAL: Gross neurological examination did not reveal any focal deficits. SKIN: No rashes. Assessment and plan -right foot. Pain: Clinically patient doesn't appear to have any significant infection, infectious disease was consulted regarding antibiotics if there is any infection. Patient does have callus and chronic ulcers in the right foot. Patient is exhibiting narcotic seeking behavior. Patient will be started on vancomycin for now probably can be discharged on oral antibiotic may be doxycycline. -Hypertension next and-hyperlipidemia -Anxiety disorder -sleep apnea DVT prophylaxis: On Eliquis Patient will be discharged today if cleared by infectious disease Past Medical History Past Medical History: Asthma, COPD, Diabetes Mellitus, Deep Vein Thrombosis (DVT), Eye Disorder, GERD/Reflux, Hypertension, Osteoarthritis (OA), Pneumonia, Skin Disorder, Sleep Apnea/CPAP/BIPAP, Thyroid Disorder Additional Past Medical History / Comment(s): Hx GLAUCOMA, TMJ, RENAL CALCULI, UTIs, DVT X 5 ( STATES CAUSED BY CONTROL PILLS AND HORMONES), USES BI-PAP MACHINE., [place], HAND TREMORS, STATES DIABETES RESOLVED WITH WT LOSS- WATCHES DIET. History of Any Multi-Drug Resistant Organisms: MRSA Date of last positivie culture/infection: 04/15/21 MDRO Source:: MRSA FOOT Past Surgical History: Back Surgery, Bladder Surgery, Breast Surgery, Heart Catheterization, Hysterectomy, Joint Replacement, Orthopedic Surgery, Tonsillectomy Additional Past Surgical History / Comment(s): 04/17/16 arthrotomy removal olecranon spur and loose bodies R elbow. , RIGHT TOTAL HIP, LAPAROSCOPY, BREAST BIOPSY, JULIANNE CARPAL TUNNEL, JULIANNE KNEE REPLACEMENT, JULIANNE ROTATOR CUFF REPAIR, LEFT FOOT SURG. Past Anesthesia/Blood Transfusion Reactions: Postoperative Nausea & Vomiting (PONV) Past Psychological History: No Psychological Hx Reported Additional Psychological History / Comment(s): Pt lives alone. Using walker., uses bus for transportation Smoking Status: Never smoker Past Alcohol Use History: Rare Past Drug Use History: None Reported - Past Family History Mother Family Medical History: Hyperlipidemia, Hypertension Additional Family Medical History / Comment(s): Mother is 91 yrs old. Father Family Medical History: Osteoarthritis (OA) Sister(s) Family Medical History: Pulmonary Embolus Medications and Allergies Home Medications Medication Instructions Recorded Confirmed Type Levothyroxine Sodium [Synthroid] 150 mcg PO SUTUTHSA 10/02/13 04/26/21 History Levothyroxine Sodium [Synthroid] 175 mcg PO MOWEFR 10/02/13 04/26/21 History Montelukast [Singulair] 10 mg PO HS 10/02/13 04/26/21 History Nitroglycerin Sl Tabs [Nitrostat] 0.4 mg SL Q5M PRN 10/02/13 04/26/21 History Apixaban [Eliquis] 2.5 mg PO BID 09/29/19 04/26/21 History Aspirin [Adult Low Dose Aspirin EC] 81 mg PO DAILY 09/29/19 04/26/21 History Dicyclomine [Bentyl] 10 - 20 mg PO Q6H 09/29/19 04/26/21 History Multivit with Calcium,Iron,Min 1 tab PO DAILY 09/29/19 04/26/21 History [Women's Multivitamin] Potassium Chloride ER [K-Dur 20] 60 meq PO DAILY 02/09/20 04/26/21 History Zinc 50 mg PO DAILY 02/09/20 04/26/21 History Potassium Chloride ER [K-Dur 20] 40 meq PO HS 05/15/20 04/26/21 History Primidone [Mysoline] 300 mg PO HS 05/15/20 04/26/21 History Sertraline [Zoloft] 50 mg PO DAILY 09/25/20 04/26/21 History Gabapentin [Neurontin] 300 mg PO TID 10/14/20 04/26/21 History Meclizine [Antivert] 12.5 mg PO HS 10/22/20 04/26/21 History Loperamide [Imodium] 4 mg PO BID 12/05/20 04/26/21 History Acetaminophen-Codeine 300-30mg 1 tab PO Q8H PRN 04/26/21 04/26/21 History [Tylenol w/codeine #3] Cyclobenzaprine [Flexeril] 5 mg PO Q12H PRN #0 tab 04/26/21 Rx Doxycycline Monohydrate [Monodox] 100 mg PO Q12HR #14 cap 04/26/21 Rx Famotidine [Pepcid] 20 mg PO DAILY 04/26/21 04/26/21 History Fluticasone Propionate [Flovent 1 puff INHALATION RT-BID 04/26/21 04/26/21 History Hfa 110 mcg] Allergies Allergy/AdvReac Type Severity Reaction Status Date / Time enoxaparin sodium Allergy Unknown RED LUMPS Verified 04/26/21 10:55 [From Lovenox] ON ABDOMEN AT INJECTION SITES erythromycin base Allergy Unknown Rash/Hives Verified 04/26/21 10:55 latex Allergy Unknown Itching Verified 04/26/21 10:55 adhesive Allergy Rash/Hives Verified 04/26/21 10:55 morphine Allergy Rash/Hives Verified 04/26/21 10:55 pioglitazone [From Actos] Allergy Swelling Verified 04/26/21 10:55 Sulfa (Sulfonamide Allergy Anaphylaxis Verified 04/26/21 10:55 Antibiotics) tetracycline [Tetracycline] Allergy Rash/Hives Verified 04/26/21 10:55 metformin AdvReac Diarrhea Verified 04/26/21 10:55 Physical Exam Vitals: Vital Signs Temp Pulse Pulse Resp BP BP Pulse Ox 04/26/21 07:00 97.5 F L 55 L 16 135/68 94 L 04/26/21 02:23 97.5 F L 59 L 16 122/72 96 04/26/21 02:20 59 L 16 04/26/21 01:46 86 16 132/71 96 04/25/21 22:47 98.0 F 68 18 143/78 94 L Intake and Output 04/25/21 04/26/21 04/26/21 22:59 06:59 14:59 Intake Total 118 Balance 118 Intake: Oral 118 Other: # Voids 1 Weight 72.121 kg 72.121 kg Results CBC & Chem 7: 04/25/21 23:16 04/25/21 23:16 Labs: Abnormal Lab Results - Last 24 Hours (Table) 04/25/21 Range/Units 23:16 Sodium 135 L (137-145) mmol/L Glucose 160 H (74-99) mg/dL Total Protein 5.9 L (6.3-8.2) g/dL Thrombosis Risk Factor Assmnt - Choose All That Apply Any of the Below Risk Factors Present?: Yes Each Factor Represents 1 point: Abnormal pulmonary function (COPD), Obesity (BMI >25) Other Risk Factors: Yes Each Risk Factor Represents 2 Points: Age 61-74 years Each Risk Factor Represents 3 Points: History of DVT/PE Other congenital or acquired thrombophilia - If yes, enter type in comment: No Thrombosis Risk Factor Assessment Total Risk Factor Score: 7 Thrombosis Risk Factor Assessment Level: High Risk
[2021-04-26] MEDS: KETOROLAC 30 MG/ML 1 ML VIAL IVP PRN ×2 (14:39→21:02)
[2021-04-26] MEDS: GABAPENTIN 300 MG CAP PO SCH ×2 (16:07→20:12)
--- NOTE | 2021-04-26 17:07 | P.CNOR ---
History of Present Illness - HPI Consult reason: other (Right foot pain, open wound right foot, cellulitis right foot) History of present illness: 71-year-old female well known to me through the office who is admitted because of severe right foot pain. Patient has history of a pressure ulcer on the lateral side of the right foot over the fifth metatarsal base. The wound started initially as a callus and then broke down to become a wound. She had issues with pain, swelling, redness. 2 different antibiotics failed to resolve the issue. Cultures obtained by home nursing showed MRSA. We have attempted to try to have antibiotics therapy for her however she is unable to afford any of t he oral alternatives and we have been working on his IV medications for the infection. Patient claims that she was in too much pain then arrives the hospital. Past Medical History Past Medical History: Asthma, COPD, Diabetes Mellitus, Deep Vein Thrombosis (DV T), Eye Disorder, GERD/Reflux, Hypertension, Osteoarthritis (OA), Pneumonia, Skin Disorder, Sleep Apnea/CPAP/BIPAP, Thyroid Disorder Additional Past Medical History / Comment(s): Hx GLAUCOMA, TMJ, RENAL CALCULI, UTIs, DVT X 5 ( STATES CAUSED BY CONTROL PILLS AND HORMONES), USES BI-PAP MACHINE., [place], HAND TREMORS, STATES DIABETES RESOLVED WITH WT LOSS- WATCHES DIET. History of Any Multi-Drug Resistant Organisms: MRSA Year Discovered:: 04/15/21 MDRO Source:: MRSA FOOT Past Surgical History: Back Surgery, Bladder Surgery, Breast Surgery, Heart Catheterization, Hysterectomy, Joint Replacement, Orthopedic Surgery, Tonsillectomy Additional Past Surgical History / Comment(s): 04/17/16 arthrotomy removal olecranon spur and loose bodies R elbow. , RIGHT TOTAL HIP, LAPAROSCOPY, BREAST BIOPSY, JULIANNE CARPAL TUNNEL, JULIANNE KNEE REPLACEMENT, JULIANNE ROTATOR CUFF REPAIR, LEFT FOOT SURG. Past Anesthesia/Blood Transfusion Reactions: Postoperative Nausea & Vomiting (PONV) Past Psychological History: No Psychological Hx Reported Additional Psychological History / Comment(s): Pt lives alone. Using walker., uses bus for transportation Smoking Status: Never smoker Past Alcohol Use History: Rare Past Drug Use History: None Reported - Past Family History Mother Family Medical History: Hyperlipidemia, Hypertension Additional Family Medical History / Comment(s): Mother is 91 yrs old. Father Family Medical History: Osteoarthritis (OA) Sister(s) Family Medical History: Pulmonary Embolus Medications and Allergies Home Medications Medication Instructions Recorded Confirmed Type Levothyroxine Sodium [Synthroid] 150 mcg PO SUTUTHSA 10/02/13 04/26/21 History Levothyroxine Sodium [Synthroid] 175 mcg PO MOWEFR 10/02/13 04/26/21 History Montelukast [Singulair] 10 mg PO HS 10/02/13 04/26/21 History Nitroglycerin Sl Tabs [Nitrostat] 0.4 mg SL Q5M PRN 10/02/13 04/26/21 History Apixaban [Eliquis] 2.5 mg PO BID 09/29/19 04/26/21 History Aspirin [Adult Low Dose Aspirin EC] 81 mg PO DAILY 09/29/19 04/26/21 History Dicyclomine [Bentyl] 10 - 20 mg PO Q6H 09/29/19 04/26/21 History Multivit with Calcium,Iron,Min 1 tab PO DAILY 09/29/19 04/26/21 History [Women's Multivitamin] Potassium Chloride ER [K-Dur 20] 60 meq PO DAILY 02/09/20 04/26/21 History Zinc 50 mg PO DAILY 02/09/20 04/26/21 History Potassium Chloride ER [K-Dur 20] 40 meq PO HS 05/15/20 04/26/21 History Primidone [Mysoline] 300 mg PO HS 05/15/20 04/26/21 History Sertraline [Zoloft] 50 mg PO DAILY 09/25/20 04/26/21 History Gabapentin [Neurontin] 300 mg PO TID 10/14/20 04/26/21 History Meclizine [Antivert] 12.5 mg PO HS 10/22/20 04/26/21 History Loperamide [Imodium] 4 mg PO BID 12/05/20 04/26/21 History Acetaminophen-Codeine 300-30mg 1 tab PO Q8H PRN 04/26/21 04/26/21 History [Tylenol w/codeine #3] Cyclobenzaprine [Flexeril] 5 mg PO Q12H PRN #0 tab 04/26/21 Rx Doxycycline Monohydrate [Monodox] 100 mg PO Q12HR #14 cap 04/26/21 Rx Famotidine [Pepcid] 20 mg PO DAILY 04/26/21 04/26/21 History Fluticasone Propionate [Flovent 1 puff INHALATION RT-BID 04/26/21 04/26/21 History Hfa 110 mcg] Allergies Allergy/AdvReac Type Severity Reaction Status Date / Time enoxaparin sodium Allergy Unknown RED LUMPS Verified 04/26/21 10:55 [From Lovenox] ON ABDOMEN AT INJECTION SITES erythromycin base Allergy Unknown Rash/Hives Verified 04/26/21 10:55 latex Allergy Unknown Itching Verified 04/26/21 10:55 adhesive Allergy Rash/Hives Verified 04/26/21 10:55 morphine Allergy Rash/Hives Verified 04/26/21 10:55 pioglitazone [From Actos] Allergy Swelling Verified 04/26/21 10:55 Sulfa (Sulfonamide Allergy Anaphylaxis Verified 04/26/21 10:55 Antibiotics) tetracycline [Tetracycline] Allergy Rash/Hives Verified 04/26/21 10:55 metformin AdvReac Diarrhea Verified 04/26/21 10:55 Physical Examination Osteopathic Statement: *. No significant issues noted on an osteopathic stru ctural exam other than those noted in the History and Physical/Consult. Patient's resting comfortably in bed. She is awake, alert, and oriented 3. Examination right foot shows a flexible varus deformity of the foot. There is a pressure ulcer on the plantar lateral aspect of the fifth metatarsal. It is partial thickness without any bone exposure. There is no surrounding erythema or edema. The wound bed is dry with no active drainage. Vascular status is intact Neurological: Intact light touch sensation right foot Results - Labs Labs: Abnormal Lab Results - Last 24 Hours (Table) 04/25/21 Range/Units 23:16 Sodium 135 L (137-145) mmol/L Glucose 160 H (74-99) mg/dL Total Protein 5.9 L (6.3-8.2) g/dL H & H 04/25/21 Range/Units 23:16 Hgb 12.9 (11.4-16.0) gm/dL Hct 37.7 (34.0-46.0) % Coagulation 04/25/21 Range/Units 23:16 INR 0.9 (<1.2) Result Diagrams: 04/25/21 23:16 04/25/21 23:16 Assessment and Plan Assessment: Chronic wound right foot MRSA right foot Plan: Patient's receiving IV vancomycin at this point. Awaiting ID recommendations for further antibiotic therapy. Adjustments to wound care orders also added today to include silver impregnated operative foam changed every other day.
[2021-04-26] MEDS: FAMOTIDINE 20 MG TAB PO SCH (20:12)
[2021-04-26] MEDS: APIXABAN 2.5 MG TABLET PO SCH (20:12)
[2021-04-26] MEDS: PRIMIDONE 50 MG TAB PO SCH (20:12)
[2021-04-26] MEDS ORDERED: CYCLOBENZAPRINE 10 MG TAB PO SCH (21:00)
[2021-04-26] MEDS: FLUTICASONE 110 MCG INHALER INHALATION SCH (21:12)
[2021-04-27] MEDS: VANCOMYCIN 1,250 MG in SODIUM CHLORIDE 0.9% 250 ML IVPB SCH ×2 (02:19→14:30)
[2021-04-27] MEDS: DICYCLOMINE 10 MG CAP PO SCH ×5 (02:19→20:57)
[2021-04-27] MEDS: LEVOTHYROXINE 75 MCG TAB PO SCH (05:12)
[2021-04-27] MEDS: KETOROLAC 30 MG/ML 1 ML VIAL IVP PRN ×3 (05:12→20:57)
[2021-04-27] MEDS: FLUTICASONE 110 MCG INHALER INHALATION SCH ×2 (08:06→20:39)
[2021-04-27] MEDS: GABAPENTIN 300 MG CAP PO SCH ×3 (08:10→20:57)
[2021-04-27] MEDS: FAMOTIDINE 20 MG TAB PO SCH (08:11)
[2021-04-27] MEDS: ASPIRIN 81 MG PO SCH (08:11)
[2021-04-27] MEDS: SERTRALINE 50 MG TAB PO SCH (08:15)
[2021-04-27] MEDS: APIXABAN 2.5 MG TABLET PO SCH ×2 (08:15→20:56)
[2021-04-27] MEDS ORDERED: FAMOTIDINE 20 MG TAB PO SCH (09:00)
[2021-04-27] MEDS ORDERED: ONDANSETRON ODT 4 MG TAB PO PRN (10:04)
[2021-04-27] MEDS: ONDANSETRON 4 MG/2 ML VIAL IVP PRN ×2 (10:41→17:38)
[2021-04-27] MEDS: PANTOPRAZOLE 40 MG/10 ML VIAL IVP SCH (10:41)
--- NOTE | 2021-04-27 10:41 | P.CONS ---
History of Present Illness - Reason for Consult Consult date: 04/26/21 right foot wound infection Requesting physician: Wilfredo Boles - Chief Complaint right foot non healing wound and pain x days - History of Present Illness History of present illness : Patient is 71-year-old female with a past medical history significant for hormone on the lateral side of the right foot of the fifth metatarsal bone that started with a callus and subsequently broke down to become involved patient apparently did have increasing swelling and redness over the last week and the patient mentioned that the home care nurse was able to express a lot of pus from it and was subsequently evaluated by her orthopedic physician patient did have cultures obtained which are showing MRSA and the patient has been treated with oral Levaquin patient did not have any improvement started having increasing swelling redness and pain because of the pain to be more of a delicate to sharp 4-5 out of 10 no radiation patient denies high-grade fever or chills with this into the patient has been sent to the ER on arrival to the ER the patient was afebrile patient did have a normal white count kidney function was normal deluca PCR was negative blood cultures have been repeated which are currently pending she did have local cultures obtained from the right foot on April 15, 2021 which is showing MRSA patient was started on vancomycin infectious disease was consulted for further management of antibiotic therapy Review of system: CONSTITUTIONAL: Positive for weakness denies high-grade fever. EYES: No complaint. ENT: No complaint. RESPIRATORY: No complaint. CARDIOVASCULAR: No complaint. GENITOURINARY: No complaint. GASTROINTESTINAL: No complaint. MUSCULOSKELETAL: As per history of present illness INTEGUMENTARY: No complaint. PSYCHOLOGIC: No complaint. ENDOCRINE: No complaint. NEUROLOGIC: No complaint. Past medical history : Reviewed, documented below Past surgical history : Reviewed, documented below Social history: Reviewed, documented below Medications: Reviewed, as documented below EXAMINATION: Vital sigans= Reviewed and documented below GENERAL DESCRIPTION: Elderly female lying in bed, no distress. No tachypnea or accessory muscle of respiration use. HEENT: Shows Pallor , no scleral icterus. Oral mucous membrane is dry. NECK: Trachea central, no thyromegaly. LUNGS: Unlabored breathing. Clear to auscultation anteriorly. No wheeze or crackle. HEART: S1, S2, regular rate and rhythm. ABDOMEN: Soft, no tenderness , guarding or rigidity EXTREMITIES: No edema of feet. Right foot lateral border wound at the base of t he fifth metatarsal with a dried up callus no significant surrounding swelling redness or drainage was noticed SKIN: No rash, no masses palpable. NEUROLOGICAL: The patient is awake, alert, oriented x3, mood and affect normal. LABS AND RADIOLOGY: Reviewed results see below Assessment : Patient presented to hospital with right foot pain and nonhealing wound in this patient with likely infected callus to the right foot lateral border at the base of the fifth metatarsal head with outpatient culture positive for MRSA failing outpatient oral Levaquin therapy seems to be more for superficial infection underlying deep infection not entirely excluded Plan: 1-we will obtain x-rays of the right foot CRP and a sed rate 2-vancomycin pharmacy to dose with a target trough of 15 while watching kidney function and Vanco trough closely. 3-patient may benefit from debridement and offloading shoe or total contact cast in the outpatient setting We will follow on clinical condition and cultures to further adjust medication if needed Thank you for this consultation we will follow the patient along with you Past Medical History Past Medical History: Asthma, COPD, Diabetes Mellitus, Deep Vein Thrombosis (DVT), Eye Disorder, GERD/Reflux, Hypertension, Osteoarthritis (OA), Pneumonia, Skin Disorder, Sleep Apnea/CPAP/BIPAP, Thyroid Disorder Additional Past Medical History / Comment(s): Hx GLAUCOMA, TMJ, RENAL CALCULI, UTIs, DVT X 5 ( STATES CAUSED BY CONTROL PILLS AND HORMONES), USES BI-PAP MACHINE., [place]I [place], HAND TREMORS, STATES DIABETES RESOLVED WITH WT LOSS- WATCHES DIET. History of Any Multi-Drug Resistant Organisms: MRSA Year Discovered:: 04/15/21 MDRO Source:: MRSA FOOT Past Surgical History: Back Surgery, Bladder Surgery, Breast Surgery, Heart Catheterization, Hysterectomy, Joint Replacement, Orthopedic Surgery, Tonsi llectomy Additional Past Surgical History / Comment(s): 04/17/16 arthrotomy removal olecranon spur and loose bodies R elbow. , RIGHT TOTAL HIP, LAPAROSCOPY, BREAST BIOPSY, JULIANNE CARPAL TUNNEL, JULIANNE KNEE REPLACEMENT, JULIANNE ROTATOR CUFF REPAIR, LEFT FOOT SURG. Past Anesthesia/Blood Transfusion Reactions: Postoperative Nausea & Vomiting (PONV) Past Psychological History: No Psychological Hx Reported Additional Psychological History / Comment(s): Pt lives alone. Using walker., uses bus for transportation Smoking Status: Never smoker Past Alcohol Use History: Rare Past Drug Use History: None Reported - Past Family History Mother Family Medical History: Hyperlipidemia, Hypertension Additional Family Medical History / Comment(s): Mother is 91 yrs old. Father Family Medical History: Osteoarthritis (OA) Sister(s) Family Medical History: Pulmonary Embolus Medications and Allergies Home Medications Medication Instructions Recorded Confirmed Type Levothyroxine Sodium [Synthroid] 150 mcg PO SUTUTHSA 10/02/13 04/26/21 History Levothyroxine Sodium [Synthroid] 175 mcg PO MOWEFR 10/02/13 04/26/21 History Montelukast [Singulair] 10 mg PO HS 10/02/13 04/26/21 History Nitroglycerin Sl Tabs [Nitrostat] 0.4 mg SL Q5M PRN 10/02/13 04/26/21 History Apixaban [Eliquis] 2.5 mg PO BID 09/29/19 04/26/21 History Aspirin [Adult Low Dose Aspirin EC] 81 mg PO DAILY 09/29/19 04/26/21 History Dicyclomine [Bentyl] 10 - 20 mg PO Q6H 09/29/19 04/26/21 History Multivit with Calcium,Iron,Min 1 tab PO DAILY 09/29/19 04/26/21 History [Women's Multivitamin] Potassium Chloride ER [K-Dur 20] 60 meq PO DAILY 02/09/20 04/26/21 History Zinc 50 mg PO DAILY 02/09/20 04/26/21 History Potassium Chloride ER [K-Dur 20] 40 meq PO HS 05/15/20 04/26/21 History Primidone [Mysoline] 300 mg PO HS 05/15/20 04/26/21 History Sertraline [Zoloft] 50 mg PO DAILY 09/25/20 04/26/21 History Gabapentin [Neurontin] 300 mg PO TID 10/14/20 04/26/21 History Meclizine [Antivert] 12.5 mg PO HS 10/22/20 04/26/21 History Loperamide [Imodium] 4 mg PO BID 12/05/20 04/26/21 History Acetaminophen-Codeine 300-30mg 1 tab PO Q8H PRN 04/26/21 04/26/21 History [Tylenol w/codeine #3] Cyclobenzaprine [Flexeril] 5 mg PO Q12H PRN #0 tab 04/26/21 Rx Doxycycline Monohydrate [Monodox] 100 mg PO Q12HR #14 cap 04/26/21 Rx Famotidine [Pepcid] 20 mg PO DAILY 04/26/21 04/26/21 History Fluticasone Propionate [Flovent 1 puff INHALATION RT-BID 04/26/21 04/26/21 History Hfa 110 mcg] Allergies Allergy/AdvReac Type Severity Reaction Status Date / Time enoxaparin sodium Allergy Unknown RED LUMPS Verified 04/26/21 10:55 [From Lovenox] ON ABDOMEN AT INJECTION SITES erythromycin base Allergy Unknown Rash/Hives Verified 04/26/21 10:55 latex Allergy Unknown Itching Verified 04/26/21 10:55 adhesive Allergy Rash/Hives Verified 04/26/21 10:55 morphine Allergy Rash/Hives Verified 04/26/21 10:55 pioglitazone [From Actos] Allergy Swelling Verified 04/26/21 10:55 Sulfa (Sulfonamide Allergy Anaphylaxis Verified 04/26/21 10:55 Antibiotics) tetracycline [Tetracycline] Allergy Rash/Hives Verified 04/26/21 10:55 metformin AdvReac Diarrhea Verified 04/26/21 10:55 Physical Exam Vitals: Vital Signs Temp Pulse Pulse Resp BP BP Pulse Ox 04/26/21 14:22 98.0 F 64 18 160/71 100 04/26/21 07:00 97.5 F L 55 L 16 135/68 94 L 04/26/21 02:23 97.5 F L 59 L 16 122/72 96 04/26/21 02:20 59 L 16 04/26/21 01:46 86 16 132/71 96 04/25/21 22:47 98.0 F 68 18 143/78 94 L Intake and Output 04/26/21 04/26/21 04/26/21 06:59 14:59 22:59 Intake Total 236 Balance 236 Intake: Oral 236 Other: # Voids 1 2 # Bowel Movements 0 Weight 72.121 kg Results CBC & Chem 7: 04/25/21 23:16 04/25/21 23:16 Labs: Abnormal Lab Results - Last 24 Hours (Table) 04/25/21 Range/Units 23:16 Sodium 135 L (137-145) mmol/L Glucose 160 H (74-99) mg/dL Total Protein 5.9 L (6.3-8.2) g/dL
[2021-04-27 11:18] LABS: Basophils # (A) 0.03 X 10*3/uL (0.00-0.10); Basophils % (A) 0.5 %; Eosinophils # (A) 0.17 X 10*3/uL (0.04-0.35); Eosinophils % (A) 2.8 %; HCT 44.3 % (37.2-46.3); HGB 14.4 g/dL (12.0-15.0); Lymphocytes # (A) 1.87 X 10*3/uL (0.90-5.00); Lymphocytes % (A) 30.3 %; MCH 30.8 pg (27.0-32.0); MCHC 32.5 g/dL (32.0-37.0); MCV 94.7 fL (80.0-97.0); Mean Platelet Volume 8.5 fL (9.5-12.2); Monocytes # (A) 0.35 X 10*3/uL (0.20-1.00); Monocytes % (A) 5.7 %; Neutrophils # (A) 3.74 X 10*3/uL (1.80-7.70); Neutrophils % (A) 60.4 %; Platelet Count 181 X 10*3/uL (140-440); RBC 4.68 X 10*6/uL (4.10-5.20); RDW 12.1 % (11.5-14.5); WBC 6.18 X 10*3/uL (4.50-10.00)
[2021-04-27 11:22] LABS: African American GFR (CKD) 105.5 (60.0-200.0); Anion Gap 11.4 mmol/L (10.00-18.00); BUN/Creat Ratio 16.33 Ratio (12.00-20.00); Blood Urea Nitrogen 9.8 mg/dL (9.0-27.0); Calcium 8.9 mg/dL (8.7-10.3); Carbon Dioxide 23.6 mmol/L (20.0-27.5); Non-African American GFR(CKD) 91.1 (60.0-200.0); Potassium 4.4 mmol/L (3.5-5.5)
[2021-04-27] MEDS: SODIUM CHLORIDE 0.9% 1,000 ML IV SCH ×2 (12:49→20:56)
--- NOTE | 2021-04-27 12:52 | XR ---
Right foot HISTORY: Wound lateral foot 3 views of the right foot Bone mineralization is reduced. Osteoarthritic changes are present. No evident fracture or dislocatio n. No periostitis to suggest osteomyelitis. There is a plantar calcaneal spur. Enthesophyte, calcific ation is present at the insertion of the Achilles tendon. There is soft tissue swelling present, over lying artifact, dressing is noted. IMPRESSION: Osteopenia, low bone mineral may limit evaluation, bone scan or MRI may be of benefit. So ft tissue swelling.
[2021-04-27] MEDS: CYCLOBENZAPRINE 10 MG TAB PO PRN (13:21)
[2021-04-27] MEDS: ACETAMINOPHEN TAB 325 MG TAB PO PRN (13:23)
--- NOTE | 2021-04-27 15:15 | P.DS ---
Providers Date of admission: 04/26/21 01:31 Attending physician: Serene Cui Consults: 04/26/21 01:33 Consult Physician Routine Consulting Provider: Mickey Tran Consult Reason/Comments: known Do you want consulting provider notified?: Yes 04/26/21 12:46 Consult Physician Routine Consulting Provider: Kenyon Fine Consult Reason/Comments: Wound infection Do you want consulting provider notified?: Yes Primary care physician: Josy Man [facility] Hospital Course: Final Diagnosis -Chronic right foot wound with MRSA: Patient does have callus and chronic ulcers in the right foot. Patient will be started on vancomycin, ID consultation for antibiotic recommendations -Hypertension -hyperlipidemia -Anxiety disorder -sleep apnea Hospital Course This is a 71-year-old female who came in with possible infection of right foot. Patient is a right foot deformity is callus lateral aspect of the foot with couple ulcers and some redness the dorsal aspect of the foot around the proximal ulcer. There is no active drainage from the wound bed. Stage II and 3. Patient MRSA and her recent wounds and a culture from April 15 with micro- sensitivities are available. Patient was complaining of severe pain to the right foot and the lateral aspect. She was started on IV vancomycin with an ID consultation. She also underwent orthopedic consultation and is known to the office. Patient failed antibiotic therapy with 2 different antibiotics outpatient. Patient was having difficulty affording antibiotic therapy outpatient. Wound care orders by orthopedics include silver impregnated operative foam to be changed every other day. Foot x-ray shows osteopenia with low bone mineral a limited evaluation recommended a bone scan or MRI. There is soft tissue swelling however there is no evidence to suggest osteomyelitis. There is no evident fracture or dislocation. Patient is complaining of significant nausea this admission. This is most likely related to the IV antibiotics and did start patient on IV Protonix and give IV Zofran. Labs on admission and again on repeat show an unremarkable blood count panel. Sodium was 135 resolved 136, blood glucose 160 and 127, troponin negative, CRP negative at 0.80. Covid PCR not detected. Blood cultures are pending. Vital signs this admission patient has remained afebrile, 65 heart rate in sinus rhythm, blood pressure 149/74, 97% on room air. 04/27/2021 Patient evaluated today resting bed. She complains of significant nausea with dry heaving. She was unable to tolerate much breakfast. She is passing gas, active bowel sounds, bowels are moving. She does complain of some pain in her foot which she has Tylenol 3 on for pain management. Otherwise no further acute complaints. Labs today show temperature 98.3, heart rate 60, blood pressure 162 /84 and she is 96% on room air. Labs are unavailable for today. We are pending ID consultation for antibiotics on discharge. Wound care orders per orthopedics and follow-up in the office. There is no surgical intervention planned at this time. Please see medication reconciliation for list of current medications. Thank you for allowing us to participate in care of this patient. Patient Condition at Discharge: Good Plan - Discharge Summary Discharge Rx Participant: No New Discharge Prescriptions: New Doxycycline Monohydrate [Monodox] 100 mg PO Q12HR #14 cap Cyclobenzaprine [Flexeril] 5 mg PO Q12H PRN #0 tab PRN Reason: Spasms Continue Montelukast [Singulair] 10 mg PO HS Levothyroxine Sodium [Synthroid] 150 mcg PO SUTUTHSA Levothyroxine Sodium [Synthroid] 175 mcg PO MOWEFR Nitroglycerin Sl Tabs [Nitrostat] 0.4 mg SL Q5M PRN PRN Reason: chest pain Dicyclomine [Bentyl] 10 - 20 mg PO Q6H Apixaban [Eliquis] 2.5 mg PO BID Multivit with Calcium,Iron,Min [Women's Multivitamin] 1 tab PO DAILY Aspirin [Adult Low Dose Aspirin EC] 81 mg PO DAILY Potassium Chloride ER [K-Dur 20] 60 meq PO DAILY Zinc 50 mg PO DAILY Potassium Chloride ER [K-Dur 20] 40 meq PO HS Primidone [Mysoline] 300 mg PO HS Sertraline [Zoloft] 50 mg PO DAILY Gabapentin [Neurontin] 300 mg PO TID Meclizine [Antivert] 12.5 mg PO HS Loperamide [Imodium] 4 mg PO BID Famotidine [Pepcid] 20 mg PO DAILY Acetaminophen-Codeine 300-30mg [Tylenol w/codeine #3] 1 tab PO Q8H PRN PRN Reason: Pain Fluticasone Propionate [Flovent Hfa 110 mcg] 1 puff INHALATION RT-BID Discontinued Cyclobenzaprine [Flexeril] 10 mg PO Q12H Discharge Medication List Levothyroxine Sodium [Synthroid] 150 mcg PO SUTUTHSA 10/02/13 [History] Levothyroxine Sodium [Synthroid] 175 mcg PO MOWEFR 10/02/13 [History] Montelukast [Singulair] 10 mg PO HS 10/02/13 [History] Nitroglycerin Sl Tabs [Nitrostat] 0.4 mg SL Q5M PRN 10/02/13 [History] Apixaban [Eliquis] 2.5 mg PO BID 09/29/19 [History] Aspirin [Adult Low Dose Aspirin EC] 81 mg PO DAILY 09/29/19 [History] Dicyclomine [Bentyl] 10 - 20 mg PO Q6H 09/29/19 [History] Multivit with Calcium,Iron,Min [Women's Multivitamin] 1 tab PO DAILY 09/29/19 [History] Potassium Chloride ER [K-Dur 20] 60 meq PO DAILY 02/09/20 [History] Zinc 50 mg PO DAILY 02/09/20 [History] Potassium Chloride ER [K-Dur 20] 40 meq PO HS 05/15/20 [History] Primidone [Mysoline] 300 mg PO HS 05/15/20 [History] Sertraline [Zoloft] 50 mg PO DAILY 09/25/20 [History] Gabapentin [Neurontin] 300 mg PO TID 10/14/20 [History] Meclizine [Antivert] 12.5 mg PO HS 10/22/20 [History] Loperamide [Imodium] 4 mg PO BID 12/05/20 [History] Acetaminophen-Codeine 300-30mg [Tylenol w/codeine #3] 1 tab PO Q8H PRN 04/26/21 [History] Cyclobenzaprine [Flexeril] 5 mg PO Q12H PRN #0 tab 04/26/21 [Rx] Doxycycline Monohydrate [Monodox] 100 mg PO Q12HR #14 cap 04/26/21 [Rx] Famotidine [Pepcid] 20 mg PO DAILY 04/26/21 [History] Fluticasone Propionate [Flovent Hfa 110 mcg] 1 puff INHALATION RT-BID 04/26/21 [History] Follow up Appointment(s)/Referral(s): Josy Man MD [Primary Care Provider] - 3 Days Kenyon Fine MD [STAFF PHYSICIAN] - 1 Week Discharge Disposition: HOME SELF-CARE
[2021-04-27] MEDS: PRIMIDONE 50 MG TAB PO SCH (20:57)
--- NOTE | 2021-04-27 21:45 | P.PN ---
Subjective Progress Note Date: 04/27/21 Principal diagnosis: Right foot infected wound MRSA Patient is 71 year female presenting to the hospital with a nonhealing wound to the right foot lateral border outpatient culture positive for MRSA failing oral Levaquin therapy. On today's evaluation that is 04/27/2021, the patient denies having any fever , patient mentioned not feeling that good and did have an episode of vomiting, no chest pain shortness of breath or cough no abdominal pain and no diarrhea Objective - Vital Signs Vital signs: Vital Signs Temp 97.7 F 04/27/21 14:25 Pulse 65 04/27/21 14:25 Resp 18 04/27/21 15:04 BP 149/74 04/27/21 14:25 Pulse Ox 97 04/27/21 14:25 Intake & Output 04/27/21 04/27/21 04/28/21 06:59 18:59 06:59 Intake Total 358 Balance 358 Intake: Oral 358 Other: # Voids 2 2 # Bowel Movements 0 0 - Exam GENERAL DESCRIPTION:[ Patient is awake and alert in no distress] HEENT: [Oral mucosa is dry and no pharyngeal erythema] EYES : [No pallor or scleral icterus] RESPIRATORY SYSTEM: [Unlabored breathing clear to auscultation] CARDIA VASCULAR SYSTEM: [S1-S2 regular rate and rhythm no murmur] GI: [Abdominal soft there's no tenderness no organomegaly] EXTREMITIES: [Right foot wound is currently dressed no drainage of the dressing] - Labs CBC & Chem 7: 04/27/21 08:15 04/27/21 08:15 Labs: Abnormal Lab Results - Last 24 Hours (Table) 04/27/21 04/27/21 Range/Units 08:15 08:15 MPV 8.5 L (9.5-12.2) fL Glucose 127 H (70-110) mg/dL Microbiology - Last 24 Hours (Table) 04/25/21 23:15 Blood Culture - Preliminary Blood No Growth after 24 hours Assessment and Plan (1) Diabetic ulcer of right foot Current Visit: Yes Status: Acute Code(s): E11.621 - TYPE 2 DIABETES MELLITUS WITH FOOT ULCER; L97.519 - NON-PRS CHRONIC ULCER OTH PRT RIGHT FOOT W UNSP SEVERITY SNOMED Code(s): 170079513 (2) MRSA (methicillin resistant Staphylococcus aureus) Current Visit: Yes Status: Acute Code(s): A49.02 - METHICILLIN RESIS STAPH INFECTION, UNSP SITE SNOMED Code(s): 187851492 Plan: Patient is in the hospital with right foot infected wound and secondary cellulitis, outpatient culture positive for MRSA, x-ray didn't show any bony changes and he did have normal sed rate more likely superficial infection patien t is covered with vancomycin unfortunately patient didn't have ALLERGIES to Bactrim and doxycycline that will limit the choices of antibiotic for now continue with vancomycin and maintenance therapy with oral Zyvox Time with Patient: Less than 30
[2021-04-28] MEDS: VANCOMYCIN 1,250 MG in SODIUM CHLORIDE 0.9% 250 ML IVPB SCH ×2 (02:55→13:46)
[2021-04-28] MEDS: KETOROLAC 30 MG/ML 1 ML VIAL IVP PRN ×4 (03:10→20:49)
[2021-04-28] MEDS: ACETAMINOPHEN TAB 325 MG TAB PO PRN (03:46)
[2021-04-28] MEDS: DICYCLOMINE 10 MG CAP PO SCH ×4 (05:14→22:18)
[2021-04-28] MEDS: LEVOTHYROXINE 88 MCG TAB PO SCH (05:14)
[2021-04-28] MEDS: LEVOTHYROXINE 75 MCG TAB PO SCH (08:04)
[2021-04-28] MEDS: PANTOPRAZOLE 40 MG/10 ML VIAL IVP SCH (08:05)
[2021-04-28] MEDS: GABAPENTIN 300 MG CAP PO SCH ×3 (08:05→22:17)
[2021-04-28] MEDS: APIXABAN 2.5 MG TABLET PO SCH ×2 (08:05→20:45)
[2021-04-28] MEDS: ASPIRIN 81 MG PO SCH (08:05)
[2021-04-28] MEDS: ONDANSETRON 4 MG/2 ML VIAL IVP PRN (08:08)
[2021-04-28] MEDS: FLUTICASONE 110 MCG INHALER INHALATION SCH ×2 (08:42→19:44)
[2021-04-28] MEDS: SODIUM CHLORIDE 0.9% 1,000 ML IV SCH ×2 (10:35→22:18)
[2021-04-28] MEDS ORDERED: VANCOMYCIN TROUGH DUE 1 EACH MISC MISCELLANE ONE (13:00)
--- NOTE | 2021-04-28 13:39 | XR ---
EXAMINATION TYPE: XR cervical spine limited DATE OF EXAM: 04/28/2021 COMPARISON: NONE HISTORY: Pain TECHNIQUE: 3 views submitted FINDINGS: Calcification soft tissue the neck and related carotid artery calcification. Hypertrophic and degenerative changes spine with severe changes C5-6 and C6-C7. There is a retrolisth esis of C4 relative to C5. Prevertebral soft tissue structures are within normal limits. Odontoid intact. The lateral masses hav e a normal orientation. IMPRESSION: 1. Severe degenerative disc disease lower cervical spine consider follow-up MRI.
[2021-04-28] MEDS: SERTRALINE 50 MG TAB PO SCH (13:45)
[2021-04-28 15:08] VITALS: BMI 27.3
--- NOTE | 2021-04-28 16:20 | P.PN ---
Subjective Progress Note Date: 04/28/21 Patient is [id number] female came in with a possible infection of the right foot. Patient has a right foot deformity is callus in the lateral aspect of the foot with couple ulcers and some redness on the dorsal aspect of the foot around the proximal ulcer. Pulses are stage II and 3. Patient had MRSA in her recent wound cultures. Patient doesn't have any fever chills. Patient is comparing of severe. The pain in the lateral aspect of the foot 04/27/2021 Patient evaluated today resting bed. She complains of significant nausea with dry heaving. She was unable to tolerate much breakfast. She is passing gas, active bowel sounds, bowels are moving. She does complain of some pain in her foot which she has Tylenol 3 on for pain management. Otherwise no further acute complaints. Labs today show temperature 98.3, heart rate 60, blood pressure 162/84 and she is 96% on room air. Labs are unavailable for today. We are pending ID consultation for antibiotics on discharge. Wound care orders per orthopedics and follow-up in the office. There is no surgical intervention planned at this time. 04/28/2021 Patient evaluated today resting bed. She complains of significant nausea and did report an episode of vomiting and diarrhea yesterday. There is no blood or mucus in the stool per patient. Patient underwent upper endoscopy with Dr Beatty 03/18/2021 for significant history of nausea and vomiting since early february. Diagnosis postop includes mild antral gastritis and 2 superficial erosions at the GE junction consistent with LA grade B reflux esophagitis. Patient was advised to continue 20 mg Pepcid PO BID and f/u with GI in 3 to 4 weeks. She is also complaining of a headache that has been going on for the last 3 days that is radiating into her neck. She is getting flexeril for muscle spasms. Patient did see pain management in May for lumbar radiculopathy related to disc degeneration and pain s/p fall. Patient is also complaining of pain to her right foot which is rated a 7 out of 10. COVID PCR is negative. She is on IV antibiotics with local wound care per orthopedics. Patient receiving IV vancomycin, IV Zofran, IV Protonix for GI prophylaxis. ID would like Zyvox for outpatient antibiotics if unable to do Zyvox then ID would like 2 weeks of IV Vancomycin on discharge. ROS Constitutional: Denied any fatigue denied any fever. Cardio vascular: denied any chest pain, palpitations Gastrointestinal: Reports significant nausea, vomiting x 1 yest and diarrhea x 1 yest Pulmonary: Denied any shortness of breath cough Neurologic denied any new focal deficits All inpatient medications were reviewed and appropriate changes in these medications as dictated in the interval history and assessment and plan. PHYSICAL EXAMINATION: GENERAL: The patient is alert and oriented x3, not in any acute distress. Well developed, well nourished. HEENT: Pupils are round and equally reacting to light. EOMI. No scleral icterus. No conjunctival pallor. Normocephalic, atraumatic. No pharyngeal erythema. No thyromegaly. CARDIOVASCULAR: S1 and S2 present. No murmurs, rubs, or gallops. PULMONARY: Chest is clear to auscultation, no wheezing or crackles. ABDOMEN: Soft, nontender, nondistended, normoactive bowel sounds. No palpable organomegaly. MUSCULOSKELETAL: No joint swelling or deformity. EXTREMITIES: No cyanosis, clubbing, or pedal edema. NEUROLOGICAL: Gross neurological examination did not reveal any focal deficits. SKIN: No rashes. Assessment and Plan Assessment -Chronic right foot wound with MRSA: Patient does have callus and chronic ulcers in the right foot. Patient will be started on vancomycin, ID consultation for antibiotic recommendations will need 2 weeks of IV antibiotic therapy on DC -Nausea/Vomiting, recent endoscopy showing gastritis, on pepcid, f/u GI -Hypertension -hyperlipidemia -Anxiety disorder -sleep apnea GI Prophylaxis: Protonix DVT Prophylaxis: FULL CODE Plan Zyvox vs. Vancomycin outpatient - 2 weeks therapy PICC line placement IV pepcid BID Continue IV Zofran Continue pain management and local wound care change daily for right foot wound PT/OT consult Objective - Vital Signs Vital signs: Vital Signs Temp 98.2 F 04/28/21 07:00 Pulse 64 04/28/21 07:00 Resp 16 04/28/21 08:26 BP 155/79 04/28/21 07:00 Pulse Ox 96 04/28/21 07:00 Intake & Output 04/27/21 04/28/21 04/28/21 18:59 06:59 18:59 Intake Total 358 Balance 358 Intake: Oral 358 Other: # Voids 2 3 1 # Bowel Movements 0 - Labs CBC & Chem 7: 04/27/21 08:15 04/27/21 08:15 Labs: Microbiology - Last 24 Hours (Table) 04/25/21 23:15 Blood Culture - Preliminary Blood No Growth after 48 hours
[2021-04-28] MEDS: FAMOTIDINE 20 MG/2 ML VIAL IV SCH (20:49)
[2021-04-28] MEDS: PRIMIDONE 50 MG TAB PO SCH (20:49)
--- NOTE | 2021-04-28 23:16 | P.PN ---
Subjective Progress Note Date: 04/28/21 Principal diagnosis: Right foot infected wound MRSA Patient is 71 year female presenting to the hospital with a nonhealing wound to the right foot lateral border outpatient culture positive for MRSA failing oral Levaquin therapy. On today's evaluation that is 04/28/2021, the patient remains to be afebrile, patient is still not feeling that good and still complaining of nausea and vomiting, no chest pain shortness of breath or cough no abdominal pain and no diarrhea Objective - Vital Signs Vital signs: Vital Signs Temp 98.2 F 04/28/21 07:00 Pulse 64 04/28/21 07:00 Resp 16 04/28/21 08:26 BP 155/79 04/28/21 07:00 Pulse Ox 96 04/28/21 07:00 Intake & Output 04/27/21 04/28/21 04/28/21 18:59 06:59 18:59 Intake Total 358 Balance 358 Intake: Oral 358 Other: # Voids 2 3 1 # Bowel Movements 0 - Exam GENERAL DESCRIPTION:[ Patient is awake and alert in no distress] HEENT: [Oral mucosa is dry and no pharyngeal erythema] EYES : [No pallor or scleral icterus] RESPIRATORY SYSTEM: [Unlabored breathing clear to auscultation] CARDIA VASCULAR SYSTEM: [S1-S2 regular rate and rhythm no murmur] GI: [Abdominal soft there's no tenderness no organomegaly] EXTREMITIES: [Right foot wound is currently dressed no drainage of the dressing] - Labs CBC & Chem 7: 04/27/21 08:15 04/27/21 08:15 Labs: Microbiology - Last 24 Hours (Table) 04/25/21 23:15 Blood Culture - Preliminary Blood No Growth after 48 hours Assessment and Plan (1) Diabetic ulcer of right foot Current Visit: Yes Status: Acute Code(s): E11.621 - TYPE 2 DIABETES MELLITUS WITH FOOT ULCER; L97.519 - NON-PRS CHRONIC ULCER OTH PRT RIGHT FOOT W UNSP SEVERITY SNOMED Code(s): 302963875 (2) MRSA (methicillin resistant Staphylococcus aureus) Current Visit: Yes Status: Acute Code(s): A49.02 - METHICILLIN RESIS STAPH INFECTION, UNSP SITE SNOMED Code(s): 887280930 Plan: Patient is in the hospital with right foot infected wound and secondary cellulitis, outpatient culture positive for MRSA, x-ray didn't show any bony changes and he did have normal sed rate more likely superficial infection patient is covered with vancomycin unfortunately patient didn't have ALLERGIES to Bactrim and doxycycline that will limit the choices of antibiotic, patient is currently covered with vancomycin and may finish therapy with oral Zyvox if there is no drug interaction with her other medication this was discussed with nurse practitioner per admitting team Time with Patient: Less than 30
[2021-04-29] MEDS: SODIUM CHLORIDE 0.9% 1,000 ML IV SCH (01:28)
[2021-04-29] MEDS: VANCOMYCIN 1,250 MG in SODIUM CHLORIDE 0.9% 250 ML IVPB SCH ×2 (01:28→14:43)
[2021-04-29] MEDS: DICYCLOMINE 10 MG CAP PO SCH ×4 (05:11→23:45)
[2021-04-29] MEDS: ACETAMINOPHEN TAB 325 MG TAB PO PRN ×2 (06:14→13:06)
[2021-04-29] MEDS: FLUTICASONE 110 MCG INHALER INHALATION SCH ×2 (08:22→20:44)
[2021-04-29] MEDS: LEVOTHYROXINE 75 MCG TAB PO SCH (08:57)
[2021-04-29] MEDS: FAMOTIDINE 20 MG/2 ML VIAL IV SCH ×2 (08:57→20:45)
[2021-04-29] MEDS: LEVOTHYROXINE 88 MCG TAB PO SCH (08:57)
[2021-04-29] MEDS: GABAPENTIN 300 MG CAP PO SCH ×3 (08:58→20:45)
[2021-04-29] MEDS: ASPIRIN 81 MG PO SCH (08:58)
[2021-04-29] MEDS: KETOROLAC 30 MG/ML 1 ML VIAL IVP PRN (09:04)
[2021-04-29] MEDS ORDERED: LIDOCAINE 1% INJ 10MG/ML (20 ML MDV) SQ ONE (09:32)
--- NOTE | 2021-04-29 09:56 | IR ---
PICC LINE PLACEMENT: HISTORY: Infection requiring long-term antibiotic therapy PROCEDURE: Ultrasound and fluoroscopic guidance of PICC line placement. COMPLICATIONS: None ANESTHESIA: 1. 1% Lidocaine locally. FINDINGS/TECHNIQUE: The procedure was explained to the patient. The risks, complications, benefits and alternatives were discussed and any questions were answered. Informed consent was obtained. The patient was placed supine on the fluoroscopic table and prepped and draped in the usual sterile fash ion. Utilizing a 21 gauge needle and sonographic and fluoroscopic guidance, access in the left basi lic vein was achieved and there is placement of a 0.018 guidewire. The vein is patent. A 4-F sheath was placed over the guidewire. The guidewire and dilator were removed and a 4-F. PICC line was plac ed through the sheath with the tip at the level of the SVC. The sheath was removed, the catheter was flushed and sutured into position. The patient was stable throughout the procedure and remained sta ble upon discharge from the Department of Radiology. The vein puncture was patent under ultrasound. A rehman scale image was obtained to document patency of the vein punctured. All elements of the maximal barrier technique were utilized. FLUOROSCOPY TIME: 0.3 minutes and one images IMPRESSION: Successful PICC line placement under ultrasound and fluoroscopic guidance.
[2021-04-29] MEDS: APIXABAN 2.5 MG TABLET PO SCH ×2 (10:54→20:44)
[2021-04-29] MEDS: SERTRALINE 50 MG TAB PO SCH (11:37)
--- NOTE | 2021-04-29 14:01 | P.DS ---
Providers Date of admission: 04/26/21 01:31 Attending physician: Serene Cui Consults: 04/26/21 01:33 Consult Physician Routine Consulting Provider: Mickey Tran Consult Reason/Comments: known Do you want consulting provider notified?: Yes 04/26/21 12:46 Consult Physician Routine Consulting Provider: Kenyon Fine Consult Reason/Comments: Wound infection Do you want consulting provider notified?: Yes Primary care physician: Josy Man [place] Hospital Course: Final Diagnosis -Chronic right foot wound with MRSA: Patient does have callus and chronic ulcers in the right foot. 10 days of IV Vanco therapy, metahoney local wound care and follow up with Dr Fine in the wound center -Nausea/Vomiting, recent endoscopy showing gastritis, on pepcid, f/u GI -Neck and pain into the right shoulder with ROM - Xray showing degenerative disc disease lower cervical spine on flexeril f/u outpatient -Diabetes mellitus type 2, diet controlled -Hypertension -hyperlipidemia -Anxiety disorder -sleep apnea -DVT on eliquis -History of heart catheterization Discharge Disposition Patient to be discharged to subacute rehab with PICC line and IV antibiotics for 10 days. Follow up in wound center with Dr Fine, follow up with Dr. Marcos Beatty, and follow up with PCP. Resume eliquis on 04-30-2021. Hospital Course This is a 71-year-old female who presented to the for evaluation secondary to pain control and antibiotic therapy for a chronic wound of her right foot. Cultures were taken in the orthopedics office on April 15 which showed MRSA. Per patient she is having difficulties walking around her house and does not feel like she is safe at home. She does have a history of falls most recent one was 4 weeks ago. She is a underlying medical history for diabetes mellitus type 2, Asthma, COPD, DVT, GERD, hand tremors, cardiac catheterization, chronic lower back pain with surgical intervention and has seen Dr. Leal in the past for injections. Also past medical history significant for hypertension, anemia, anxiety, sleep apnea. In addition to to right foot pain, patient is also complaining of nausea and diarrhea. She denies blood in the stool. Patient underwent upper endoscopy with Dr Beatty 03/18/2021 for significant history of nausea and vomiting since early february. Diagnosis postop includes mild antral gastritis and 2 superficial erosions at the GE junction consistent with LA grade B reflux esophagitis. Patient was advised to continue 20 mg Pepcid PO BID and f/u with GI in 3 to 4 weeks. She is also complaining of a headache that has been going on for the last 3 days that is radiating into her neck. She is getting flexeril for muscle spasms. Patient did see pain management in May for lumbar radiculopathy related to disc degeneration and pain s/p fall. Cervical spine xray this admission for c/o neck pain radiating into her right shoulder shows severe degenerative disc disease lower cervical spine consider follow up MRI. Patient has seen Dr. Jian Joseph in the past at [facility] for surgery and would like to see him outpatient. She has also seen Dr Ervin in the past. Patient is also complaining of pain to her right foot which is rated a 7 out of 10. She is able to bear weight and ambulate. ID evaluated the patient this admission and did recommend IV antibiotics on discharge. Zyvox was also a choice but interactions with sertraline and cyclobenzaprine are present. Patient received a PICC line to receive IV Vanco outpatient. Patient had eliquis held prior to PICC insertion, however she did have oozing around the PICC site postoperative. Pressure was held x2 and laboratory administrative director re-evaluated PICC line. Patient to hold one more dose of eliquis. Pt also evaluated by Dr Tran with orthopedics who she follows with in the office, she has failed 2 different antibiotics outpatient and has difficulty with cost for alternative antibiotics outpatient. Vital signs; afebrile, heart rate 61, blood pressure 170's/73, 95% on room air. Labs on admission: unremarkable blood count, sodium 135, improved to 136, troponin negative, CRP within normal limits at 0.80, BNP 105, and total protein 5.9. COVID PCR not detected. Blood Culture negative Diagnostics EKG reviewed shows normal sinus rhythm, no ST or T wave abnormalities, heart rate 66, QT 417. Right foot Xray - osteopenia, low bone mineral may limit evaluation, bone scan or MRI may be benefit. Soft tissue swelling 03/29/2022 Patient evaluated today while walking back from the restroom. She does report some diarrhea, she denies any blood or mucus in the stool. She is pending follow-up with Dr. Tumma anytime now and she does have an appointment made. She'll continue on Pepcid 20 mg by mouth twice a day, we will also add Imodium. 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 Started patient on lisinopril 5 mg PO daily she is hypertensive. No complaints of chest pain, cough, or shortness of breath. She denies headache, does report some neck pain that is radiating into her right shoulder that is not new. She is on flexeril as needed for this and can follow up outpatient with known providers. She is tolerating diet, alert oriented. Evaluated by ID today who recommends local wound care with trace and she will complete 10 days of IV Vanco at subacute rehab. Please see medication reconciliation for a list of current medications. Thank you for allowing us to participate in the care of this patient. Patient Condition at Discharge: Fair Plan - Discharge Summary Discharge Rx Participant: No New Discharge Prescriptions: New Acetaminophen Tab [Tylenol] 650 mg PO Q6HR PRN tab PRN Reason: Fever And/ Or Pain Cyclobenzaprine [Flexeril] 5 mg PO Q12H PRN #0 tab PRN Reason: Spasms Continue Montelukast [Singulair] 10 mg PO HS Levothyroxine Sodium [Synthroid] 150 mcg PO SUTUTHSA Levothyroxine Sodium [Synthroid] 175 mcg PO MOWEFR Nitroglycerin Sl Tabs [Nitrostat] 0.4 mg SL Q5M PRN PRN Reason: chest pain Dicyclomine [Bentyl] 10 - 20 mg PO Q6H Multivit with Calcium,Iron,Min [Women's Multivitamin] 1 tab PO DAILY Aspirin [Adult Low Dose Aspirin EC] 81 mg PO DAILY Zinc 50 mg PO DAILY Primidone [Mysoline] 300 mg PO HS Sertraline [Zoloft] 50 mg PO DAILY Meclizine [Antivert] 12.5 mg PO HS Loperamide [Imodium] 4 mg PO BID Acetaminophen-Codeine 300-30mg [Tylenol w/codeine #3] 1 tab PO Q8H PRN PRN Reason: Pain Gabapentin [Neurontin] 300 mg PO TID #6 cap Fluticasone Propionate [Flovent Hfa 110 mcg] 1 puff INHALATION RT-BID Apixaban [Eliquis] 2.5 mg PO BID #0 Changed Famotidine [Pepcid] 20 mg PO BID #0 Potassium Chloride ER [K-Dur 20] 20 meq PO DAILY #0 Discontinued Potassium Chloride ER [K-Dur 20] 40 meq PO HS Cyclobenzaprine [Flexeril] 10 mg PO Q12H Discharge Medication List Levothyroxine Sodium [Synthroid] 150 mcg PO SUTUTHSA 10/02/13 [History] Levothyroxine Sodium [Synthroid] 175 mcg PO MOWEFR 10/02/13 [History] Montelukast [Singulair] 10 mg PO HS 10/02/13 [History] Nitroglycerin Sl Tabs [Nitrostat] 0.4 mg SL Q5M PRN 10/02/13 [History] Aspirin [Adult Low Dose Aspirin EC] 81 mg PO DAILY 09/29/19 [History] Dicyclomine [Bentyl] 10 - 20 mg PO Q6H 09/29/19 [History] Multivit with Calcium,Iron,Min [Women's Multivitamin] 1 tab PO DAILY 09/29/19 [History] Zinc 50 mg PO DAILY 02/09/20 [History] Primidone [Mysoline] 300 mg PO HS 05/15/20 [History] Sertraline [Zoloft] 50 mg PO DAILY 09/25/20 [History] Meclizine [Antivert] 12.5 mg PO HS 10/22/20 [History] Loperamide [Imodium] 4 mg PO BID 12/05/20 [History] Acetaminophen-Codeine 300-30mg [Tylenol w/codeine #3] 1 tab PO Q8H PRN 04/26/21 [History] Cyclobenzaprine [Flexeril] 5 mg PO Q12H PRN #0 tab 04/26/21 [Rx] Fluticasone Propionate [Flovent Hfa 110 mcg] 1 puff INHALATION RT-BID 04/26/21 [History] Acetaminophen Tab [Tylenol] 650 mg PO Q6HR PRN tab 04/29/21 [Rx] Apixaban [Eliquis] 2.5 mg PO BID #0 04/29/21 [Rx] Famotidine [Pepcid] 20 mg PO BID #0 04/29/21 [Rx] Gabapentin [Neurontin] 300 mg PO TID #6 cap 04/29/21 [Rx] Potassium Chloride ER [K-Dur 20] 20 meq PO DAILY #0 04/29/21 [Rx] Follow up Appointment(s)/Referral(s): Josy Man MD [Primary Care Provider] - 3 Days Mickey Tran DPM [Doctor of Osteopathic Medicine] - 1 Week Tiesha Beatty MD [STAFF PHYSICIAN] - 1 Week Jonny Will MD [STAFF PHYSICIAN] - As Needed [facility], [NON-STAFF] - 1-2 Days Kenyon Fine MD [STAFF PHYSICIAN] - 1 Week Ambulatory/Diagnostic Orders: Basic Metabolic Panel [LAB.AMB] Time Frame: 3 Days, Location: None Selected Activity/Diet/Wound Care/Special Instructions: IV Vancomycin x 10 days per ID Metahoney to right foot calluses and follow up in the wound center with Dr Babatunde cabral on 04/30/2021 Discharge Disposition: TRANSFER TO SNF/ECF
[2021-04-29] MEDS: lisinopriL 5 MG TAB PO SCH (14:43)
[2021-04-29 15:51] LABS: INR 0.9 (<1.2); Prothrombin Time 10.4 sec (9.0-12.0)
[2021-04-29 17:30] LABS: Glucose,Whole Blood 122 mg/dL (75-99)
[2021-04-29] MEDS: PRIMIDONE 50 MG TAB PO SCH (20:46)
[2021-04-29] MEDS: INSULIN ASPART (NovoLOG) 100 UNIT/ML VIAL SQ SCH ×2 (20:47→23:09)
[2021-04-29] MEDS: Acetaminophen-Codeine 300-30mg TAB PO PRN (22:48)
--- NOTE | 2021-04-29 22:54 | P.PN ---
Subjective Progress Note Date: 04/29/21 Principal diagnosis: Right foot infected wound MRSA Patient is 71 year female presenting to the hospital with a nonhealing wound to the right foot lateral border outpatient culture positive for MRSA failing oral Levaquin therapy. On today's evaluation that is 04/29/2021, the patient continues to be afebrile, patient is still complaining of nausea however no vomiting, no chest pain shortness of breath or cough no abdominal pain and no diarrhea, denies any worsening pain in the right foot wound area Objective - Vital Signs Vital signs: Vital Signs Temp 98.2 F 04/29/21 07:00 Pulse 61 04/29/21 07:00 Resp 16 04/29/21 09:19 BP 172/73 04/29/21 07:00 Pulse Ox 95 04/29/21 07:00 Intake & Output 04/28/21 04/29/21 04/29/21 18:59 06:59 18:59 Intake Total 118 Balance 118 Weight 72.121 kg Intake: Oral 118 Other: # Voids 2 1 # Bowel Movements 1 1 - Exam GENERAL DESCRIPTION:[ Patient is awake and alert in no distress] HEENT: [Oral mucosa is dry and no pharyngeal erythema] EYES : [No pallor or scleral icterus] RESPIRATORY SYSTEM: [Unlabored breathing clear to auscultation] CARDIA VASCULAR SYSTEM: [S1-S2 regular rate and rhythm no murmur] GI: [Abdominal soft there's no tenderness no organomegaly] EXTREMITIES: [Right foot wound 2 on the lateral border with significant amount of callus and some maceration - Labs CBC & Chem 7: 04/27/21 08:15 04/27/21 08:15 Labs: Microbiology - Last 24 Hours (Table) 04/25/21 23:15 Blood Culture - Preliminary Blood No Growth after 72 hours Assessment and Plan (1) Diabetic ulcer of right foot Current Visit: Yes Status: Acute Code(s): E11.621 - TYPE 2 DIABETES MELLITUS WITH FOOT ULCER; L97.519 - NON-PRS CHRONIC ULCER OTH PRT RIGHT FOOT W UNSP SEVERITY SNOMED Code(s): 616109215 (2) MRSA (methicillin resistant Staphylococcus aureus) Current Visit: Yes Status: Acute Code(s): A49.02 - METHICILLIN RESIS STAPH INFECTION, UNSP SITE SNOMED Code(s): 420186974 Plan: Patient is in the hospital with right foot infected wound and secondary cellulitis, outpatient culture positive for MRSA, x-ray didn't show any bony changes and he did have normal sed rate more likely superficial infection patient is covered with vancomycin unfortunately patient didn't have ALLERGIES to Bactrim and doxycycline that will limit the choices of antibiotic, patient is currently covered with vancomycin and patient has got a PICC line and possible retirement placement to continue with vancomycin 10 days and local care as ordered Time with Patient: Less than 30
[2021-04-29 23:02] LABS: Glucose,Whole Blood 133 mg/dL (75-99)
[2021-04-30] MEDS: SODIUM CHLORIDE 0.9% 1,000 ML IV SCH (01:34)
[2021-04-30] MEDS: VANCOMYCIN 1,250 MG in SODIUM CHLORIDE 0.9% 250 ML IVPB SCH (01:58)
[2021-04-30] MEDS: CYCLOBENZAPRINE 10 MG TAB PO PRN (04:05)
[2021-04-30] MEDS: DICYCLOMINE 10 MG CAP PO SCH (05:46)
--- NOTE | 2021-04-30 06:09 | CT ---
EXAM: CT Head Without Intravenous Contrast CLINICAL HISTORY: ITS.REASON CT Reason: Right sided weakness TECHNIQUE: Axial computed tomography images of the head/brain without intravenous contrast. CTDI is 13.22 mGy and DLP is 1072.30 mGy-cm. This CT exam was performed using one or more of the following dose reduction techniques: automated exposure control, adjustment of the mA and/or kV according to patient size, and/or use of iterative reconstruction technique. COMPARISON: No relevant prior studies available. FINDINGS: No acute intracranial hemorrhage. No midline shift or mass effect. The territorial rehman-white matter differentiation is maintained throughout. Age-related cerebral volume loss. Periventricular and subcortical white matter hypoattenuation, consistent with chronic microangiopathy. The visualized orbits appear grossly unremarkable. The calvarium is intact. The visualized paranasal sinuses and mastoid air cells are grossly clear. IMPRESSION: No acute intracranial hemorrhage, midline shift, or mass effect.
[2021-04-30 07:25] LABS: Glucose,Whole Blood 124 mg/dL (75-99)
[2021-04-30 07:30] LABS: African American GFR (CKD) >90 (>60 ml/min/1.73 sqM); Anion Gap 5 mmol/L; Blood Urea Nitrogen 9 mg/dL (7-17); Calcium 8.6 mg/dL (8.4-10.2); Carbon Dioxide 25 mmol/L (22-30); Chloride 104 mmol/L (98-107); Glucose 133 mg/dL (74-99); Non-African American GFR(CKD) >90 (>60 ml/min/1.73 sqM); Potassium 3.2 mmol/L (3.5-5.1); Sodium 134 mmol/L (137-145)
[2021-04-30 07:38] VITALS: BP 126/69; RESP 16; TEMP 97.9
[2021-04-30] MEDS: FLUTICASONE 110 MCG INHALER INHALATION SCH (08:00)
[2021-04-30] MEDS ORDERED: POTASSIUM CHLORIDE ER 20 MEQ TAB.ER PO STA (08:35)
[2021-04-30] MEDS: INSULIN ASPART (NovoLOG) 100 UNIT/ML VIAL SQ SCH (08:48)
[2021-04-30] MEDS: FAMOTIDINE 20 MG/2 ML VIAL IV SCH (08:49)
[2021-04-30] MEDS: GABAPENTIN 300 MG CAP PO SCH (08:49)
[2021-04-30] MEDS: lisinopriL 5 MG TAB PO SCH (08:50)
[2021-04-30] MEDS: APIXABAN 2.5 MG TABLET PO SCH (08:50)
[2021-04-30] MEDS: SERTRALINE 50 MG TAB PO SCH (08:50)
[2021-04-30] MEDS: ASPIRIN 81 MG PO SCH (08:50)
[2021-04-30 09:10] VITALS: PULSE 60
[2021-04-30] MEDS: Acetaminophen-Codeine 300-30mg TAB PO PRN (09:16)
[2021-05-01] MEDS ORDERED: VANCOMYCIN TROUGH DUE 1 EACH MISC MISCELLANE ONE (01:00)
== END 2021-04-30 11:56 ==
LOC: EC 22:45 → 6NMEDSUR 04-26 01:31
PROVIDERS: ADMIT Hospitalist; ATTEND Hospitalist
DX: L97.519 Non-pressure chronic ulcer of other part of right foot with unspecified severity (principal); B95.62 Methicillin resistant Staphylococcus aureus infection as the cause of diseases classified elsewhere; Z86.14 Personal history of Methicillin resistant Staphylococcus aureus infection; I10 Essential (primary) hypertension; E78.5 Hyperlipidemia, unspecified; F41.9 Anxiety disorder, unspecified; G47.30 Sleep apnea, unspecified; L03.115 Cellulitis of right lower limb; Z76.5 Malingerer [conscious simulation]; M85.871 Other specified disorders of bone density and structure, right ankle and foot; R53.1 Weakness; L84 Corns and callosities; K29.70 Gastritis, unspecified, without bleeding; M50.30 Other cervical disc degeneration, unspecified cervical region; J44.9 Chronic obstructive pulmonary disease, unspecified; G89.29 Other chronic pain; M54.50 Low back pain, unspecified; R25.1 Tremor, unspecified; D64.9 Anemia, unspecified; R19.7 Diarrhea, unspecified; K21.00 Gastro-esophageal reflux disease with esophagitis, without bleeding; E11.621 Type 2 diabetes mellitus with foot ulcer; E07.9 Disorder of thyroid, unspecified; E66.9 Obesity, unspecified; Z68.27 Body mass index [BMI] 27.0-27.9, adult; L89.892 Pressure ulcer of other site, stage 2; R51.9 Headache, unspecified; M62.838 Other muscle spasm; M54.16 Radiculopathy, lumbar region; M19.90 Unspecified osteoarthritis, unspecified site; H40.9 Unspecified glaucoma; M26.609 Unspecified temporomandibular joint disorder, unspecified side; H91.90 Unspecified hearing loss, unspecified ear; Z20.822 Contact with and (suspected) exposure to COVID-19; Z91.81 History of falling; Z86.718 Personal history of other venous thrombosis and embolism; Z87.01 Personal history of pneumonia (recurrent); Z87.440 Personal history of urinary (tract) infections; Z87.442 Personal history of urinary calculi; Z86.711 Personal history of pulmonary embolism; Z71.9 Counseling, unspecified; Z79.890 Hormone replacement therapy; Z79.899 Other long term (current) drug therapy; Z79.01 Long term (current) use of anticoagulants; Z79.82 Long term (current) use of aspirin; Z79.51 Long term (current) use of inhaled steroids; Z88.1 Allergy status to other antibiotic agents; Z91.040 Latex allergy status; Z88.5 Allergy status to narcotic agent; Z88.2 Allergy status to sulfonamides; Z88.8 Allergy status to other drugs, medicaments and biological substances; Z91.048 Other nonmedicinal substance allergy status; Z90.710 Acquired absence of both cervix and uterus; Z96.653 Presence of artificial knee joint, bilateral; Z96.641 Presence of right artificial hip joint; M21.962 Unspecified acquired deformity of left lower leg; M21.961 Unspecified acquired deformity of right lower leg; Z82.49 Family history of ischemic heart disease and other diseases of the circulatory system; Z82.61 Family history of arthritis; Z83.438 Family history of other disorder of lipoprotein metabolism and other lipidemia; Z83.2 Family history of diseases of the blood and blood-forming organs and certain disorders involving the immune mechanism
CPT/HCPCS: 36573; 96376 ×5; 96361 ×6; 96365; 96366 ×5; 96375 ×5; 99285; 36415; 94640 ×7; 93005; 97110; 97530; 97162; 97166; 83880; 80053; 80048 ×2; 85652; 83605; 83735; 84100; 84484; 85025 ×2; 80202; 85610 ×2; 85730; 86140; 87040; 87635; 72040; 73630; 70450; G0378 ×5; C1751; C1769; J3370 ×5; J2060; J2405 ×2; J2001; J1885 ×4; C9113 ×2; J1170 ×2

== ENCOUNTER → 2021-06-05 | Outpatient (CLI) | payer MEDICARE | END | disposition home or self-care (01) | LOC: LABWHC1 15:53 | PROVIDERS: ATTEND Psychiatry & Neurology Neurology | DX: M54.16 Radiculopathy, lumbar region (principal); G62.9 Polyneuropathy, unspecified; G25.0 Essential tremor; M54.50 Low back pain, unspecified | CPT/HCPCS: 36415; 82306; 83036 ==

== ENCOUNTER 2021-06-11 13:21 | Day surgery (SDC) | payer MEDICARE, OTHER ==
[~2021-06-11 13:21] MED LIST changes: +DEXAMETHASONE SOD PHOSPHATE 4 MG/ML 1 ML VIAL IV ONE; -HYDROmorphone 0.5 MG/0.5 ML SYRINGE IVP PRN; +MIDAZOLAM 2 MG/2 ML VIAL IV PRN; +ONDANSETRON 4 MG/2 ML VIAL IVP ONE; +VANCOMYCIN 1,250 MG in SODIUM CHLORIDE 0.9% 250 ML IVPB PRN
[2021-06-11 14:17] LABS: Glucose,Whole Blood 131 mg/dL (75-99)
[2021-06-11] MEDS ORDERED: fentaNYL (PF) 50 MCG/ML 2 ML AMP ONE (14:24)
[2021-06-11] MEDS ORDERED: PROPOFOL 10 MG/ML 20 ML VIAL IV ONE (14:24)
[2021-06-11] MEDS ORDERED: SUCCINYLCHOLINE CHLORIDE 100 MG/5 ML SYR IV ONE (14:24)
[2021-06-11] MEDS: LACTATED RINGERS 1,000 ML IV SCH (14:27)
[2021-06-11] MEDS ORDERED: BUPIVACAINE (PF) 0.25% 30 ML VIAL INTRAARTIC ONE (14:32)
[2021-06-11 15:15] LABS: Glucose,Whole Blood 138 mg/dL (75-99)
[2021-06-11] MEDS ORDERED: HYDROmorphone 0.2 MG/1 ML SYRINGE IVP PRN (15:20)
[2021-06-11] MEDS ORDERED: HYDROmorphone 0.5 MG/0.5 ML SYRINGE IVP PRN (15:20)
[2021-06-11] MEDS: HYDROmorphone 0.5 MG/0.5 ML SYRINGE IVP PRN ×4 (15:35→23:34)
[2021-06-11] MEDS ORDERED: KETOROLAC 15 MG/ML 1 ML VIAL IVP ONE (15:37)
[2021-06-11] MEDS ORDERED: diphenhydrAMINE 50 MG/ML 1 ML VIAL IVP ONE (15:48)
[2021-06-11 17:04] LABS: Glucose,Whole Blood 138 mg/dL (75-99)
[2021-06-11] MEDS ORDERED: ONDANSETRON 4 MG/2 ML VIAL IVP PRN (18:04)
[2021-06-11 20:21] LABS: Glucose,Whole Blood 221 mg/dL (75-99)
[2021-06-11] MEDS: INSULIN ASPART (NovoLOG) 100 UNIT/ML VIAL SQ SCH (20:52)
[2021-06-12] MEDS: HYDROmorphone 0.5 MG/0.5 ML SYRINGE IVP PRN ×2 (06:20→10:57)
[2021-06-12 06:54] LABS: Glucose,Whole Blood 157 mg/dL (75-99)
[2021-06-12] MEDS: INSULIN ASPART (NovoLOG) 100 UNIT/ML VIAL SQ SCH ×2 (07:01→11:36)
[2021-06-12] MEDS: LACTATED RINGERS 1,000 ML IV SCH (07:02)
[2021-06-12 07:45] VITALS: BP 129/73; PULSE 65; RESP 16; TEMP 98.1
[2021-06-12 11:18] LABS: Glucose,Whole Blood 133 mg/dL (75-99)
--- NOTE | 2021-06-12 12:00 | P.OP ---
Date of Procedure: 06/11/21 Preoperative Diagnosis: !. Abscess and cellulitis right foot 2. Possible osteomyelitis right 5th metatarsal Postoperative Diagnosis: 1. Bursitis right foot 2. deformity of 5th metatarsal right foot Procedure(s) Performed: 1. Excision of bursa right foot 2. partial 5th metatarsal head resection right foot Implants: none Anesthesia: PAULINA Surgeon: Mickey Tran Estimated Blood Loss (ml): 1 Pathology: other (bursa right foot) Condition: stable Disposition: observation Operative Findings: no evidence or purulent material or abscess formation. No necrotic tissue Large inflamed bursa plantar 5th metatarsal head Description of Procedure: The patient was brought into the operating room and placed on the table in the supine position. Time Out was taken to confirm correct patient identifiers, correct procedure, and correct side of surgery. When all staff in the room were in agreement with the time out, the patient was induced and placed under general anesthetic. 20cc of 0.25% Marcaine was injected as an ankle block and then the right foot was prepped and draped in the usual manner. The foot was exanguinated with an Esmarch bandage and then the bandage was left in place on the ankle for hemostasis. Attention was directed over the 5th MPJ where an incision was made on the lateral aspect between the neurovascular structures. The incision was deepened down to the subcutaneous tissue, careful to identify, avoid and retract any neurovascular structures and cauterize any bleeding vessels. Continued dissection was performed through the fascia. No purulent drainage, abscess or necrotic tissue was encountered. Further dissection into the subq deep to the 5th metatarsal head revealed a large bursa in the area. This tissue was carefully dissected from the surrounding subq and removed. The 5th metatarsal head was palpated and noted to projected lateral and plantar. The capsule was incised and reflected off of the 5th metatarsal head. A sagittal saw was used to partially resect the lateral and plantar portions of the 5th metatarsal head. Once palpated, it was noted to not protrude to the extent prior. All the rough edges were smoothed with a rasp. Then the area was thoroughly irrigated with saline. The 5th MPJ capsule was closed with 2-0 Vicryl, the subcutaneous layer with 4-0 vicryl and the skin with 3-0 Stratafix in a running subcuticular manner. Dermal glue was applied over the incision. Once dried, Steri-strips was placed across the incision. An Arthrex Jumpstart dressing was placed over the incision, the a bulky dry dressing was applied to the foot. The Esmarch was released and CFT returned to all digits on the right foot. Anesthesia was reversed and the patient was taken to recovery with vital signs stable.
--- NOTE | 2021-06-12 12:07 | P.DS ---
Providers Date of admission: 06-11-2021 Expected date of discharge: 06/12/21 Attending physician: Mickey Tran DPM Primary care physician: Josy Man - Discharge Diagnosis(es) (1) Foot abscess, right Patient presented to the office c/o severe pain, redness and swelling over the 5th MPJ right foot. P/E findings revealed similar findings with the addition of possible fluid collection in the area of complaint. The plan was for I&D of the right foot scheduled for 06-11-2021 Current Visit: Yes Status: Acute Onset Date: ~06/09/21 Hospital Course: Patient admitted for observation following surgery on her right foot Pain well controlled Vitals stable Assessment: Bursitis left foot Pertinent Studies: Pending pathology report for bursa excised Procedures: Excision of bursa right foot with partial 5th metatarsal head resection Patient Condition at Discharge: Stable Plan - Discharge Summary Discharge Rx Participant: No New Discharge Prescriptions: No Action Levothyroxine Sodium [Synthroid] 150 mcg PO SUTUTHSA@0600 Levothyroxine Sodium [Synthroid] 175 mcg PO MOWEFR Nitroglycerin Sl Tabs [Nitrostat] 0.4 mg SL Q5M PRN PRN Reason: Chest Pain Aspirin [Adult Low Dose Aspirin EC] 81 mg PO DAILY Zinc 50 mg PO DAILY Primidone [Mysoline] 250 mg PO HS Meclizine [Antivert] 12.5 mg PO HS Famotidine [Pepcid] 20 mg PO BID@0600,2100 Loperamide HCl [Imodium A-D] 2 mg PO BID Insulin Aspart [NovoLOG Flexpen] 0 units SQ BID PRN PRN Reason: scale Dicyclomine HCl 10 mg PO Q6H PRN PRN Reason: Pain Fluticasone Propionate [Flovent Hfa 110 mcg] 1 puff INHALATION BID Apixaban [Eliquis] 2.5 mg PO BID #0 Cyclobenzaprine [Flexeril] 10 mg PO Q12H PRN PRN Reason: Muscle Spasm Acetaminophen-Codeine 300-30mg [Tylenol w/codeine #3] 1 tab PO Q6H PRN MDD 6 tabs PRN Reason: Pain Ondansetron [Zofran] 4 mg PO Q6H PRN PRN Reason: Nausea Melatonin 10 mg PO HS PRN PRN Reason: Insomnia Multivitamins, Thera [Multivitamin (formulary)] 1 tab PO DAILY Cholecalciferol [Vitamin D3 (25 Mcg = 1000 Iu)] 25 mcg PO DAILY Cranberry Fruit Concentrate [Azo Cranberry] 250 mg PO BID Metoclopramide [Reglan] 10 mg PO DAILY PRN PRN Reason: Nausea Gabapentin [Neurontin] 300 mg PO BID Acetaminophen Tab [Tylenol] 325 mg PO Q6HR PRN PRN Reason: Fever And/ Or Pain Topiramate [Topamax] 25 mg PO HS Discharge Medication List Levothyroxine Sodium [Synthroid] 150 mcg PO SUTUTHSA@0600 10/02/13 [History] Levothyroxine Sodium [Synthroid] 175 mcg PO MOWEFR 10/02/13 [History] Nitroglycerin Sl Tabs [Nitrostat] 0.4 mg SL Q5M PRN 10/02/13 [History] Aspirin [Adult Low Dose Aspirin EC] 81 mg PO DAILY 09/29/19 [History] Zinc 50 mg PO DAILY 02/09/20 [History] Primidone [Mysoline] 250 mg PO HS 05/15/20 [History] Meclizine [Antivert] 12.5 mg PO HS 10/22/20 [History] Apixaban [Eliquis] 2.5 mg PO BID #0 04/29/21 [Rx] Acetaminophen-Codeine 300-30mg [Tylenol w/codeine #3] 1 tab PO Q6H PRN MDD 6 tabs 05/05/21 [History] Cyclobenzaprine [Flexeril] 10 mg PO Q12H PRN 05/05/21 [History] Famotidine [Pepcid] 20 mg PO BID@0600,2100 05/05/21 [History] Loperamide HCl [Imodium A-D] 2 mg PO BID 05/05/21 [History] Melatonin 10 mg PO HS PRN 05/05/21 [History] Multivitamins, Thera [Multivitamin (formulary)] 1 tab PO DAILY 05/05/21 [History] Ondansetron [Zofran] 4 mg PO Q6H PRN 05/05/21 [History] Acetaminophen Tab [Tylenol] 325 mg PO Q6HR PRN 06/10/21 [History] Cholecalciferol [Vitamin D3 (25 Mcg = 1000 Iu)] 25 mcg PO DAILY 06/10/21 [History] Cranberry Fruit Concentrate [Azo Cranberry] 250 mg PO BID 06/10/21 [History] Dicyclomine HCl 10 mg PO Q6H PRN 06/10/21 [History] Fluticasone Propionate [Flovent Hfa 110 mcg] 1 puff INHALATION BID 06/10/21 [History] Gabapentin [Neurontin] 300 mg PO BID 06/10/21 [History] Insulin Aspart [NovoLOG Flexpen] 0 units SQ BID PRN 06/10/21 [History] Metoclopramide [Reglan] 10 mg PO DAILY PRN 06/10/21 [History] Topiramate [Topamax] 25 mg PO HS 06/10/21 [History] Follow up Appointment(s)/Referral(s): Mickey Tran, VISHNU [Doctor of Osteopathic Medicine] - 1 Week (needs to be seen Weds or ) [facility], [NON-STAFF] - Patient Instructions/Handouts: *Surgery [facility] - (Marc) Discharge Instructins Foot Surgery Activity/Diet/Wound Care/Special Instructions: Keep the dressing, clean, dry and intact. Do not remove Patient may ambulate as tolerated in post-op shoe Patient only wears the post-op shoe when ambulating Keep foot elevated as much as possible throughout the day. Keep walking to a minimum Follow-up with Dr. Tran as instructed Discharge Disposition: HOME SELF-CARE
== END 2021-06-12 15:57 | disposition home or self-care (01) ==
LOC: OR 13:21 → 4SSUR 15:01 → OR 06-12 15:57
PROVIDERS: ATTEND Podiatrist
DX: L02.611 Cutaneous abscess of right foot (principal); L03.115 Cellulitis of right lower limb; K21.9 Gastro-esophageal reflux disease without esophagitis; E03.9 Hypothyroidism, unspecified; H40.9 Unspecified glaucoma; H91.90 Unspecified hearing loss, unspecified ear; J98.4 Other disorders of lung; Z87.442 Personal history of urinary calculi; I10 Essential (primary) hypertension; L98.9 Disorder of the skin and subcutaneous tissue, unspecified; Z96.653 Presence of artificial knee joint, bilateral; Z96.643 Presence of artificial hip joint, bilateral; Z90.710 Acquired absence of both cervix and uterus; Z90.49 Acquired absence of other specified parts of digestive tract; Z98.890 Other specified postprocedural states; J44.9 Chronic obstructive pulmonary disease, unspecified; E11.9 Type 2 diabetes mellitus without complications; E07.9 Disorder of thyroid, unspecified; Z97.2 Presence of dental prosthetic device (complete) (partial); Z79.01 Long term (current) use of anticoagulants; Z79.82 Long term (current) use of aspirin; Z79.890 Hormone replacement therapy; Z79.899 Other long term (current) drug therapy; Z88.1 Allergy status to other antibiotic agents; Z88.5 Allergy status to narcotic agent; Z88.8 Allergy status to other drugs, medicaments and biological substances
CPT/HCPCS: 88304; 28002; J3370; J1200; J2405; J3010; J1885; J0330; J2704; J1170 ×2

== ENCOUNTER 2021-06-20 17:34 | Inpatient (IN) | payer MEDICARE ==
--- NOTE | 2021-06-20 18:51 | ED ---
General Adult HPI - General Chief complaint: Extremity Injury, Lower Stated complaint: infection Time Seen by Provider: 06/20/21 18:07 Source: patient, EMS, RN notes reviewed Mode of arrival: EMS Limitations: physical limitation - History of Present Illness Initial comments: 71-year-old female presents to the emergency department via EMS for evaluation of right foot infection. Patient states she recently had surgery due to an abscess and was told it was MSRA. States she has been seen by infectious disease and has been on antibiotics previously, though is uncertain of what she has taken. Patient complains of increased redness, swelling, and pain. Has had drainage from incision site with blistering as well. States she has been taking her Tylenol 3 with no improvement. Reports taking her anticoagulant as prescribed. Denies fever, chills, headache, chest pain, shortness of breath, difficulty breathing, abdominal pain, nausea, vomiting, diarrhea, or dysuria. - Related Data Home Medications Medication Instructions Recorded Confirmed Levothyroxine Sodium [Synthroid] 150 mcg PO SUTUTHSA 10/02/13 06/20/21 Levothyroxine Sodium [Synthroid] 175 mcg PO MOWEFR 10/02/13 06/20/21 Nitroglycerin Sl Tabs [Nitrostat] 0.4 mg SL Q5M PRN 10/02/13 06/20/21 Aspirin [Adult Low Dose Aspirin EC] 81 mg PO DAILY 09/29/19 06/20/21 Zinc 50 mg PO DAILY 02/09/20 06/20/21 Primidone [Mysoline] 250 mg PO HS 05/15/20 06/20/21 Meclizine [Antivert] 12.5 mg PO HS 10/22/20 06/20/21 Acetaminophen-Codeine 300-30mg 1 tab PO Q6H PRN MDD 6 tabs 05/05/21 06/20/21 [Tylenol w/codeine #3] Cyclobenzaprine [Flexeril] 10 mg PO Q12H PRN 05/05/21 06/20/21 Famotidine [Pepcid] 20 mg PO BID@0600,2100 05/05/21 06/20/21 Loperamide HCl [Imodium A-D] 2 mg PO BID 05/05/21 06/20/21 Melatonin 10 mg PO HS PRN 05/05/21 06/20/21 Multivitamins, Thera [Multivitamin 1 tab PO DAILY 05/05/21 06/20/21 (formulary)] Ondansetron [Zofran] 4 mg PO Q6H PRN 05/05/21 06/20/21 Acetaminophen Tab [Tylenol] 325 mg PO Q6HR PRN 06/10/21 06/20/21 Cholecalciferol [Vitamin D3 (25 25 mcg PO DAILY 06/10/21 06/20/21 Mcg = 1000 Iu)] Cranberry Fruit Concentrate [Azo 250 mg PO BID 06/10/21 06/20/21 Cranberry] Dicyclomine HCl 10 mg PO Q6H PRN 06/10/21 06/20/21 Fluticasone Propionate [Flovent 1 puff INHALATION RT-BID 06/10/21 06/20/21 Hfa 110 mcg] Gabapentin [Neurontin] 300 mg PO BID 06/10/21 06/20/21 Insulin Aspart [NovoLOG Flexpen] See Protocol SQ AC-BID PRN 06/10/21 06/20/21 Metoclopramide [Reglan] 10 mg PO DAILY PRN 06/10/21 06/20/21 Topiramate [Topamax] 25 mg PO HS 06/10/21 06/20/21 Previous Rx's Medication Instructions Recorded Apixaban [Eliquis] 2.5 mg PO BID #0 04/29/21 Allergies Allergy/AdvReac Type Severity Reaction Status Date / Time enoxaparin sodium Allergy Unknown RED LUMPS Verified 06/20/21 20:40 [From Lovenox] ON ABDOMEN AT INJECTION SITES erythromycin base Allergy Unknown Rash/Hives Verified 06/20/21 20:40 latex Allergy Unknown Itching Verified 06/20/21 20:40 adhesive Allergy Rash/Hives Verified 06/20/21 20:40 morphine Allergy Rash/Hives Verified 06/20/21 20:40 pioglitazone [From Actos] Allergy Swelling Verified 06/20/21 20:40 Sulfa (Sulfonamide Allergy Anaphylaxis Verified 06/20/21 20:40 Antibiotics) tetracycline [Tetracycline] Allergy Rash/Hives Verified 06/20/21 20:40 metformin AdvReac Diarrhea Verified 06/20/21 20:40 Review of Systems ROS Statement: Those systems with pertinent positive or pertinent negative responses have been documented in the HPI. ROS Other: All systems not noted in ROS Statement are negative. Past Medical History Past Medical History: Asthma, COPD, Diabetes Mellitus, Deep Vein Thrombosis (DVT), Eye Disorder, GERD/Reflux, Hypertension, Osteoarthritis (OA), Pneumonia, Skin Disorder, Thyroid Disorder Additional Past Medical History / Comment(s): MRSA infection rt foot 5th digit and side of rt foot, Hx GLAUCOMA, TMJ, RENAL CALCULI, UTIs, DVT X 5 ( STATES CAUSED BY CONTROL PILLS AND HORMONES),[place], HAND TREMORS History of Any Multi-Drug Resistant Organisms: MRSA Date of last positivie culture/infection: 04/15/21 MDRO Source:: MRSA FOOT Past Surgical History: Back Surgery, Bladder Surgery, Breast Surgery, Heart Catheterization, Hysterectomy, Joint Replacement, Orthopedic Surgery, Tonsillectomy Additional Past Surgical History / Comment(s): 04/17/16 arthrotomy removal olecranon spur and loose bodies R elbow. , JULIANNE TOTAL HIP, LAPAROSCOPY, BREAST BIOPSY, JULIANNE CARPAL TUNNEL, JULIANNE KNEE REPLACEMENT, JULIANNE ROTATOR CUFF REPAIR, LEFT FOOT SURG, Right foot bursa removal, Past Anesthesia/Blood Transfusion Reactions: Postoperative Nausea & Vomiting (PONV) Past Psychological History: No Psychological Hx Reported Smoking Status: Never smoker Past Alcohol Use History: Rare Past Drug Use History: None Reported - Past Family History Mother Family Medical History: Hyperlipidemia, Hypertension Additional Family Medical History / Comment(s): Mother at age 96. Father Family Medical History: Osteoarthritis (OA) Sister(s) Family Medical History: Pulmonary Embolus General Exam Limitations: physical limitation General appearance: alert, in no apparent distress (Well-developed, well- nourished female in no acute distress. Initial temperature 98.3, pulse 67, respirations 18, blood pressure 148/82, pulse ox 98% on room air.) ENT exam: Present: normal exam, normal oropharynx, mucous membranes moist Respiratory exam: Present: normal lung sounds bilaterally. Absent: respiratory distress, wheezes, rales, rhonchi, stridor, chest wall tenderness Cardiovascular Exam: Present: regular rate, normal rhythm, normal heart sounds. Absent: systolic murmur, diastolic murmur, rubs, gallop, clicks GI/Abdominal exam: Present: soft, normal bowel sounds. Absent: distended, tenderness, guarding, rebound, rigid Right Lower Leg exam: Present: swelling, erythema. Absent: tenderness, Homans' sign Ankle exam: Present: tenderness, swelling, erythema Foot/Toe exam: Present: tenderness, swelling, erythema (Incision site along the distal lateral aspect of the right foot. Thin yellow drainage oozing from site. Blistering proximal to incision. Sutures intact.) Neurovascular tendon exam: Present: no vascular compromise. Absent: pulse deficit, abnormal cap refill, motor deficit, sensory deficit Neurological exam: Present: alert, oriented X3, CN II-XII intact Psychiatric exam: Present: normal affect, normal mood Course Vital Signs 06/20/21 06/20/21 06/20/21 17:45 17:59 18:00 Temperature 98.3 F Pulse Rate 67 Respiratory 18 Rate Blood Pressure 148/82 148/82 O2 Sat by Pulse 98 98 99 Oximetry 06/20/21 06/20/21 06/20/21 18:30 19:00 19:30 Temperature Pulse Rate 68 64 Respiratory 18 18 Rate Blood Pressure 141/71 138/82 144/77 O2 Sat by Pulse 98 98 Oximetry 06/20/21 23:00 Temperature Pulse Rate 62 Respiratory 18 Rate Blood Pressure 159/82 O2 Sat by Pulse 95 Oximetry - Reevaluation(s) Reevaluation #1: 06/20/21 20:00 Delaying cared due to difficulty gaining IV access. 06/20/21 21:34 Upon reevaluation, patient is resting more comfortably after receiving pain medication. Her foot has been wrapped. Updated on plan of care. 06/20/21 23:05 Patient continues to rest comfortably. Provided a snack as requested. She will be admitted to the hospital as an observation patient. 06/20/21 23:[address] Tran regarding admission plan for patient. Medical Decision Making - Medical Decision Making This is a 71-year-old female with a past medical history of COPD, diabetes, hypertension, DVTs, and osteoarthritis who presents to the emergency department status post recent right foot surgery. Upon exam, patient is nontoxic in appearance, though does complain of significant pain to the right foot which appears increasingly erythematous and edematous with active drainage from the wound. Sutures appears intact. Patient does have blistering on the dorsal surface of the distal 4th and 5th metatarsals. Patient is not currently taking an antibiotic. She is afebrile and not tachycardiac. Laboratory studies are unremarkable. I did speak with Dr. Tran, her french folding machine operator, who requests patient be admitted to the hospital for IV antibiotic treatment. Her previous wound culture was postive for MRSA therefore vancomycin was administered in the emergency department. Patient was given pain medication with improvement. Spoke with Dr. Virk who agrees to accept this admission. This patient's care was provided in collaboration with my attending, Dr. Larson. - Lab Data Result diagrams: 06/20/21 19:43 06/20/21 19:43 Lab Results 06/20/21 06/20/21 06/20/21 Range/Units 19:43 19:43 19:43 WBC 5.3 (3.8-10.6) k/uL RBC 3.96 (3.80-5.40) m/uL Hgb 12.5 (11.4-16.0) gm/dL Hct 37.8 (34.0-46.0) % MCV 95.5 (80.0-100.0) fL MCH 31.6 (25.0-35.0) pg MCHC 33.1 (31.0-37.0) g/dL RDW 12.3 (11.5-15.5) % Plt Count 263 (150-450) k/uL MPV 6.5 Neutrophils % 51 % Lymphocytes % 35 % Monocytes % 6 % Eosinophils % 4 % Basophils % 1 % Neutrophils # 2.7 (1.3-7.7) k/uL Lymphocytes # 1.9 (1.0-4.8) k/uL Monocytes # 0.3 (0-1.0) k/uL Eosinophils # 0.2 (0-0.7) k/uL Basophils # 0.1 (0-0.2) k/uL ESR (0-20) mm/hr Sodium 135 L (137-145) mmol/L Potassium 4.3 (3.5-5.1) mmol/L Chloride 99 (98-107) mmol/L Carbon Dioxide 32 H (22-30) mmol/L Anion Gap 4 mmol/L BUN 11 (7-17) mg/dL Creatinine 0.52 (0.52-1.04) mg/dL Est GFR (CKD-EPI)AfAm >90 (>60 ml/min/1.73 sqM) Est GFR (CKD-EPI)NonAf >90 (>60 ml/min/1.73 sqM) Glucose 125 H (74-99) mg/dL Plasma Lactic Acid Fish 0.8 (0.7-2.0) mmol/L Calcium 8.8 (8.4-10.2) mg/dL Total Bilirubin 0.4 (0.2-1.3) mg/dL AST 28 (14-36) U/L ALT 29 (4-34) U/L Alkaline Phosphatase 91 (38-126) U/L C-Reactive Protein (<1.0) mg/dL Total Protein 6.8 (6.3-8.2) g/dL Albumin 3.7 (3.5-5.0) g/dL 06/20/21 06/21/21 Range/Units 23:41 01:13 WBC (3.8-10.6) k/uL RBC (3.80-5.40) m/uL Hgb (11.4-16.0) gm/dL Hct (34.0-46.0) % MCV (80.0-100.0) fL MCH (25.0-35.0) pg MCHC (31.0-37.0) g/dL RDW (11.5-15.5) % Plt Count (150-450) k/uL MPV Neutrophils % % Lymphocytes % % Monocytes % % Eosinophils % % Basophils % % Neutrophils # (1.3-7.7) k/uL Lymphocytes # (1.0-4.8) k/uL Monocytes # (0-1.0) k/uL Eosinophils # (0-0.7) k/uL Basophils # (0-0.2) k/uL ESR 30 H (0-20) mm/hr Sodium (137-145) mmol/L Potassium (3.5-5.1) mmol/L Chloride (98-107) mmol/L Carbon Dioxide (22-30) mmol/L Anion Gap mmol/L BUN (7-17) mg/dL Creatinine (0.52-1.04) mg/dL Est GFR (CKD-EPI)AfAm (>60 ml/min/1.73 sqM) Est GFR (CKD-EPI)NonAf (>60 ml/min/1.73 sqM) Glucose (74-99) mg/dL Plasma Lactic Acid Fish (0.7-2.0) mmol/L Calcium (8.4-10.2) mg/dL Total Bilirubin (0.2-1.3) mg/dL AST (14-36) U/L ALT (4-34) U/L Alkaline Phosphatase (38-126) U/L C-Reactive Protein 6.4 H (<1.0) mg/dL Total Protein (6.3-8.2) g/dL Albumin (3.5-5.0) g/dL - Radiology Data Radiology results: report reviewed, image reviewed X-ray of the right foot was obtained. Report was reviewed in its entirety. Impression per Dr. Jenkins's fifth metatarsal deformity could relate to surgery. Osteomyelitis is possible. Deformity is a change compared to the old exam. Disposition Clinical Impression: Cellulitis of right foot Disposition: ADMITTED IP TO THIS [facility] Condition: Serious
[2021-06-20] MEDS ORDERED: ONDANSETRON 4 MG/2 ML VIAL IVP STA (18:55)
[2021-06-20] MEDS ORDERED: HYDROmorphone 0.5 MG/0.5 ML SYRINGE IVP STA (18:55)
[2021-06-20 19:52] LABS: Basophils # (A) 0.1 k/uL (0-0.2); Basophils % (A) 1 %; Eosinophils # (A) 0.2 k/uL (0-0.7); Eosinophils % (A) 4 %; HCT 37.8 % (34.0-46.0); HGB 12.5 gm/dL (11.4-16.0); Lymphocytes # (A) 1.9 k/uL (1.0-4.8); Lymphocytes % (A) 35 %; MCH 31.6 pg (25.0-35.0); MCHC 33.1 g/dL (31.0-37.0); MCV 95.5 fL (80.0-100.0); Mean Platelet Volume 6.5; Monocytes # (A) 0.3 k/uL (0-1.0); Monocytes % (A) 6 %; Neutrophils # (A) 2.7 k/uL (1.3-7.7); Neutrophils % (A) 51 %; Platelet Count 263 k/uL (150-450); RBC 3.96 m/uL (3.80-5.40); RDW 12.3 % (11.5-15.5); WBC 5.3 k/uL (3.8-10.6)
[2021-06-20 20:01] LABS: ALT 29 U/L (4-34); AST 28 U/L (14-36); African American GFR (CKD) >90 (>60 ml/min/1.73 sqM); Albumin 3.7 g/dL (3.5-5.0); Alkaline Phosphatase 91 U/L (38-126); Anion Gap 4 mmol/L; Blood Urea Nitrogen 11 mg/dL (7-17); Calcium 8.8 mg/dL (8.4-10.2); Carbon Dioxide 32 mmol/L (22-30); Chloride 99 mmol/L (98-107); Glucose 125 mg/dL (74-99); Non-African American GFR(CKD) >90 (>60 ml/min/1.73 sqM); Potassium 4.3 mmol/L (3.5-5.1); Sodium 135 mmol/L (137-145); Total Bilirubin 0.4 mg/dL (0.2-1.3); Total Protein 6.8 g/dL (6.3-8.2)
[2021-06-20] MEDS ORDERED: VANCOMYCIN IV PER PHARMACY 1 EACH MISC MISCELLANE PRN (21:36)
[2021-06-20] MEDS ORDERED: VANCOMYCIN 1,500 MG in SODIUM CHLORIDE 0.9% 250 ML IVPB ONE (22:00)
--- NOTE | 2021-06-20 22:36 | XR ---
EXAMINATION TYPE: XR foot complete RT DATE OF EXAM: 06/20/2021 COMPARISON: 04/27/2021 HISTORY: Foot infection TECHNIQUE: 3 views FINDINGS: There is plantar calcaneal spurring. There is some deformity of the head of the fifth metat arsal with erosion. I see no fracture nor dislocation. The hindfoot appears intact. IMPRESSION: Fifth metatarsal deformity could relate to surgery. Osteomyelitis is possible. Deformity is a change compared to the old exam.
[2021-06-20] MEDS ORDERED: NALOXONE 0.4 MG/ML 1 ML VIAL IV PRN (23:59)
[2021-06-21] MEDS: HYDROcodone/APAP 5-325MG 1 EACH TAB PO PRN ×5 (00:34→21:18)
--- NOTE | 2021-06-21 04:52 | P.HPIM ---
History of Present Illness H&P Date: 06/20/21 Chief Complaint: right foot infection 71 year old female with DM , hypothyroid patient comes in upon recommendations of her product support consultant , to rule out bone infection . she had an abscess removed from her right foot, about 10 days ago , she was placed on short course of antibiotics and was told that she had MRSA in her abscess. for the past 1 week , she noticed increase swelling, erythema , and pain, along with drainage from the surgical site, with another new area of blistering proximal to the surgical site. she was concerned and her product support consultant suggested she comes to the ED for evaluation to rule out Osteomyelitis . she denies any fever, chills. she is unable to weight bear on that foot, and cant walk due to pain she denies any smoking, drug abuse or alcohol abuse in the ED workup , blood work overall unremarkable , foot xray , could not exclude osteomyelitis, ESR and CRP both elevated. Review of Systems all other systems reviewed, pertinent positives and negatives as per HPI Past Medical History Past Medical History: Asthma, COPD, Diabetes Mellitus, Deep Vein Thrombosis (DVT), Eye Disorder, GERD/Reflux, Hypertension, Osteoarthritis (OA), Pneumonia, Skin Disorder, Thyroid Disorder Additional Past Medical History / Comment(s): MRSA infection rt foot 5th digit and side of rt foot, Hx GLAUCOMA, TMJ, RENAL CALCULI, UTIs, DVT X 5 ( STATES CAUSED BY CONTROL PILLS AND HORMONES),[place], HAND TREMORS History of Any Multi-Drug Resistant Organisms: MRSA Date of last positivie culture/infection: 04/15/21 MDRO Source:: MRSA FOOT Past Surgical History: Back Surgery, Bladder Surgery, Breast Surgery, Heart Catheterization, Hysterectomy, Joint Replacement, Orthopedic Surgery, Tonsillectomy Additional Past Surgical History / Comment(s): 04/17/16 arthrotomy removal olecranon spur and loose bodies R elbow. , JULIANNE TOTAL HIP, LAPAROSCOPY, BREAST BIOPSY, JULIANNE CARPAL TUNNEL, JULIANNE KNEE REPLACEMENT, JULIANNE ROTATOR CUFF REPAIR, LEFT FOOT SURG, Right foot bursa removal, Past Anesthesia/Blood Transfusion Reactions: Postoperative Nausea & Vomiting (PONV) Past Psychological History: No Psychological Hx Reported Smoking Status: Never smoker Past Alcohol Use History: Rare Past Drug Use History: None Reported - Past Family History Mother Family Medical History: Hyperlipidemia, Hypertension Additional Family Medical History / Comment(s): Mother at age 96. Father Family Medical History: Osteoarthritis (OA) Sister(s) Family Medical History: Pulmonary Embolus Medications and Allergies Home Medications Medication Instructions Recorded Confirmed Type Levothyroxine Sodium [Synthroid] 150 mcg PO SUTUTHSA 10/02/13 06/20/21 History Levothyroxine Sodium [Synthroid] 175 mcg PO MOWEFR 10/02/13 06/20/21 History Nitroglycerin Sl Tabs [Nitrostat] 0.4 mg SL Q5M PRN 10/02/13 06/20/21 History Aspirin [Adult Low Dose Aspirin EC] 81 mg PO DAILY 09/29/19 06/20/21 History Zinc 50 mg PO DAILY 02/09/20 06/20/21 History Primidone [Mysoline] 250 mg PO HS 05/15/20 06/20/21 History Meclizine [Antivert] 12.5 mg PO HS 10/22/20 06/20/21 History Apixaban [Eliquis] 2.5 mg PO BID #0 04/29/21 06/20/21 Rx Acetaminophen-Codeine 300-30mg 1 tab PO Q6H PRN MDD 6 tabs 05/05/21 06/20/21 History [Tylenol w/codeine #3] Cyclobenzaprine [Flexeril] 10 mg PO Q12H PRN 05/05/21 06/20/21 History Famotidine [Pepcid] 20 mg PO BID@0600,2100 05/05/21 06/20/21 History Loperamide HCl [Imodium A-D] 2 mg PO BID 05/05/21 06/20/21 History Melatonin 10 mg PO HS PRN 05/05/21 06/20/21 History Multivitamins, Thera [Multivitamin 1 tab PO DAILY 05/05/21 06/20/21 History (formulary)] Ondansetron [Zofran] 4 mg PO Q6H PRN 05/05/21 06/20/21 History Acetaminophen Tab [Tylenol] 325 mg PO Q6HR PRN 06/10/21 06/20/21 History Cholecalciferol [Vitamin D3 (25 25 mcg PO DAILY 06/10/21 06/20/21 History Mcg = 1000 Iu)] Cranberry Fruit Concentrate [Azo 250 mg PO BID 06/10/21 06/20/21 History Cranberry] Dicyclomine HCl 10 mg PO Q6H PRN 06/10/21 06/20/21 History Fluticasone Propionate [Flovent 1 puff INHALATION RT-BID 06/10/21 06/20/21 History Hfa 110 mcg] Gabapentin [Neurontin] 300 mg PO BID 06/10/21 06/20/21 History Insulin Aspart [NovoLOG Flexpen] See Protocol SQ AC-BID PRN 06/10/21 06/20/21 History Metoclopramide [Reglan] 10 mg PO DAILY PRN 06/10/21 06/20/21 History Topiramate [Topamax] 25 mg PO HS 06/10/21 06/20/21 History Allergies Allergy/AdvReac Type Severity Reaction Status Date / Time enoxaparin sodium Allergy Unknown RED LUMPS Verified 06/20/21 20:40 [From Lovenox] ON ABDOMEN AT INJECTION SITES erythromycin base Allergy Unknown Rash/Hives Verified 06/20/21 20:40 latex Allergy Unknown Itching Verified 06/20/21 20:40 adhesive Allergy Rash/Hives Verified 06/20/21 20:40 morphine Allergy Rash/Hives Verified 06/20/21 20:40 pioglitazone [From Actos] Allergy Swelling Verified 06/20/21 20:40 Sulfa (Sulfonamide Allergy Anaphylaxis Verified 06/20/21 20:40 Antibiotics) tetracycline [Tetracycline] Allergy Rash/Hives Verified 06/20/21 20:40 metformin AdvReac Diarrhea Verified 06/20/21 20:40 Physical Exam Vitals: Vital Signs Temp Pulse Resp BP Pulse Ox 06/20/21 23:00 62 18 159/82 95 06/20/21 19:30 64 18 144/77 06/20/21 19:00 138/82 98 06/20/21 18:30 68 18 141/71 98 06/20/21 18:00 99 06/20/21 17:59 148/82 98 06/20/21 17:45 98.3 F 67 18 148/82 98 Intake and Output 06/20/21 06/20/21 06/21/21 14:59 22:59 06:59 Other: Weight 77.564 kg Constitutional: No acute distress, conversant, pleasant Eyes: Anicteric sclerae, moist conjunctiva, Pupils equal round reactive to light ENMT: NC/AT Oropharynx clear, no erythema, or exudates Neck: Supple, , no masses, or JVD No carotid bruits No thyromegaly Lungs: Clear to auscultation Clear to percussion Normal respiratory effort, no accessory muscle use Cardiovascular: Heart regular in rate and rhythm, No murmurs, gallops, or rubs No peripheral edema Abdominal: Soft Nontender, no guarding, rebound or rigidity Abdomen moving with respiration Normoactive bowel sounds No hepatomegaly, No splenomegaly No palpable mass No abdominal wall hernia noted Skin: right lateral foot has stitches in place , draining wound, tender to palpation with surrounding erythema , and swelling. Extremities: No digital cyanosis No clubbing Pedal pulses intact and symmetrical Radial pulses intact and symmetrical No calf tenderness Psychiatric: Alert and oriented to person, place and time Neuro Muscles Strength 3-4/5 in bilateral upper and lower extremities Sensation to light touch grossly present throughout Cranial nerves II-XII grossly intact No focal sensory deficits Lymphatics: no palpable cervical or supraclavicular , or inguinal lymph nodes Results CBC & Chem 7: 06/20/21 19:43 06/20/21 19:43 Labs: Abnormal Lab Results - Last 24 Hours (Table) 06/20/21 06/20/21 06/21/21 Range/Units 19:43 23:41 01:13 ESR 30 H (0-20) mm/hr Sodium 135 L (137-145) mmol/L Carbon Dioxide 32 H (22-30) mmol/L Glucose 125 H (74-99) mg/dL C-Reactive Protein 6.4 H (<1.0) mg/dL Microbiology - Last 24 Hours (Table) 06/20/21 19:56 Wound Culture - Preliminary Foot - Right Assessment and Plan Assessment: osteomyelitis of the right foot elevated ESR and CRP foot xray could not rule out osteo podiatry and ID consult initiated on vanco (patient reports recent abscess removal showed MRSA) follow up cultures monitor vital signs chronic conditions DM , insulin sliding scale hypertension , resume home blood pressure meds hypothyroid , resume levothyroxine full code DVT PPX on eliquis due to history of multiple blood clots anticipated length of stay < 2 midnights
[2021-06-21] MEDS: LEVOTHYROXINE 75 MCG TAB PO SCH (08:07)
[2021-06-21] MEDS: ASPIRIN 81 MG PO SCH (08:07)
[2021-06-21] MEDS: APIXABAN 2.5 MG TABLET PO SCH ×2 (08:07→21:18)
[2021-06-21] MEDS: FAMOTIDINE 20 MG TAB PO SCH ×2 (08:07→21:18)
[2021-06-21] MEDS: GABAPENTIN 300 MG CAP PO SCH ×2 (08:07→21:18)
--- NOTE | 2021-06-21 10:07 | P.CNOR ---
History of Present Illness - HPI Consult date: 06/21/21 History of present illness: This is a 71-year-old female who is admitted for a right foot infection. Patient is seen and evaluated at bedside in the emergency room today. Patient underwent excision of bursa right foot and partial fifth metatarsal head resection right foot by Dr. Tran on 06/11/2021. Patient states that she has been following with him as an outpatient. Patient states that over the last few days she has developed more pain and swelling in the right foot. Patient also reports drainage from her incision. Patient denies any fever or chills. Patient's past medical history is significant for asthma, COPD, diabetes me llitus, DVT, GERD, hypertension, pneumonia, osteoarthritis, history of MRSA, and glaucoma. Review of Systems See HPI. Past Medical History Past Medical History: Asthma, COPD, Diabetes Mellitus, Deep Vein Thrombosis (DVT), Eye Disorder, GERD/Reflux, Hypertension, Osteoarthritis (OA), Pneumonia, Skin Disorder, Thyroid Disorder Additional Past Medical History / Comment(s): MRSA infection rt foot 5th digit and side of rt foot, Hx GLAUCOMA, TMJ, RENAL CALCULI, UTIs, DVT X 5 ( STATES CAUSED BY CONTROL PILLS AND HORMONES),INUPIAT, HAND TREMORS History of Any Multi-Drug Resistant Organisms: MRSA Year Discovered:: 04/15/21 MDRO Source:: MRSA FOOT Past Surgical History: Back Surgery, Bladder Surgery, Breast Surgery, Heart Catheterization, Hysterectomy, Joint Replacement, Orthopedic Surgery, Tonsillectomy Additional Past Surgical History / Comment(s): 04/17/16 arthrotomy removal olecranon spur and loose bodies R elbow. , JULIANNE TOTAL HIP, LAPAROSCOPY, BREAST BIOPSY, JULIANNE CARPAL TUNNEL, JULIANNE KNEE REPLACEMENT, JULIANNE ROTATOR CUFF REPAIR, LEFT FOOT SURG, Right foot bursa removal, Past Anesthesia/Blood Transfusion Reactions: Postoperative Nausea & Vomiting (PONV) Past Psychological History: No Psychological Hx Reported Smoking Status: Never smoker Past Alcohol Use History: Rare Past Drug Use History: None Reported - Past Family History Mother Family Medical History: Hyperlipidemia, Hypertension Additional Family Medical History / Comment(s): Mother at age 96. Father Family Medical History: Osteoarthritis (OA) Sister(s) Family Medical History: Pulmonary Embolus Medications and Allergies Home Medications Medication Instructions Recorded Confirmed Type Levothyroxine Sodium [Synthroid] 150 mcg PO SUTUTHSA 10/02/13 06/20/21 History Levothyroxine Sodium [Synthroid] 175 mcg PO MOWEFR 10/02/13 06/20/21 History Nitroglycerin Sl Tabs [Nitrostat] 0.4 mg SL Q5M PRN 10/02/13 06/20/21 History Aspirin [Adult Low Dose Aspirin EC] 81 mg PO DAILY 09/29/19 06/20/21 History Zinc 50 mg PO DAILY 02/09/20 06/20/21 History Primidone [Mysoline] 250 mg PO HS 05/15/20 06/20/21 History Meclizine [Antivert] 12.5 mg PO HS 10/22/20 06/20/21 History Apixaban [Eliquis] 2.5 mg PO BID #0 04/29/21 06/20/21 Rx Acetaminophen-Codeine 300-30mg 1 tab PO Q6H PRN MDD 6 tabs 05/05/21 06/20/21 History [Tylenol w/codeine #3] Cyclobenzaprine [Flexeril] 10 mg PO Q12H PRN 05/05/21 06/20/21 History Famotidine [Pepcid] 20 mg PO BID@0600,2100 05/05/21 06/20/21 History Loperamide HCl [Imodium A-D] 2 mg PO BID 05/05/21 06/20/21 History Melatonin 10 mg PO HS PRN 05/05/21 06/20/21 History Multivitamins, Thera [Multivitamin 1 tab PO DAILY 05/05/21 06/20/21 History (formulary)] Ondansetron [Zofran] 4 mg PO Q6H PRN 05/05/21 06/20/21 History Acetaminophen Tab [Tylenol] 325 mg PO Q6HR PRN 06/10/21 06/20/21 History Cholecalciferol [Vitamin D3 (25 25 mcg PO DAILY 06/10/21 06/20/21 History Mcg = 1000 Iu)] Cranberry Fruit Concentrate [Azo 250 mg PO BID 06/10/21 06/20/21 History Cranberry] Dicyclomine HCl 10 mg PO Q6H PRN 06/10/21 06/20/21 History Fluticasone Propionate [Flovent 1 puff INHALATION RT-BID 06/10/21 06/20/21 History Hfa 110 mcg] Gabapentin [Neurontin] 300 mg PO BID 06/10/21 06/20/21 History Insulin Aspart [NovoLOG Flexpen] See Protocol SQ AC-BID PRN 06/10/21 06/20/21 History Metoclopramide [Reglan] 10 mg PO DAILY PRN 06/10/21 06/20/21 History Topiramate [Topamax] 25 mg PO HS 06/10/21 06/20/21 History Allergies Allergy/AdvReac Type Severity Reaction Status Date / Time enoxaparin sodium Allergy Unknown RED LUMPS Verified 06/20/21 20:40 [From Lovenox] ON ABDOMEN AT INJECTION SITES erythromycin base Allergy Unknown Rash/Hives Verified 06/20/21 20:40 latex Allergy Unknown Itching Verified 06/20/21 20:40 adhesive Allergy Rash/Hives Verified 06/20/21 20:40 morphine Allergy Rash/Hives Verified 06/20/21 20:40 pioglitazone [From Actos] Allergy Swelling Verified 06/20/21 20:40 Sulfa (Sulfonamide Allergy Anaphylaxis Verified 06/20/21 20:40 Antibiotics) tetracycline [Tetracycline] Allergy Rash/Hives Verified 06/20/21 20:40 metformin AdvReac Diarrhea Verified 06/20/21 20:40 Physical Examination On exam patient is resting comfortably in bed in no acute distress. Patient is alert and oriented 3 today. Dressing is removed from the right foot revealing sutures are intact. There is moderate swelling and mild drainage from the incision. There is an open blister to the dorsal lateral aspect of the right foot. There is moderate surrounding erythema. Capillary refill is normal at less than 2 seconds. Neurovascular status and circulatory status are intact. Results X-rays of the right foot are reviewed and report reveals: Fifth metatarsal deformity could relate to surgery. Osteomyelitis is possible. Deformity is a change compared to old exam. - Labs Labs: Abnormal Lab Results - Last 24 Hours (Table) 06/20/21 06/20/21 06/21/21 Range/Units 19:43 23:41 01:13 ESR 30 H (0-20) mm/hr Sodium 135 L (137-145) mmol/L Carbon Dioxide 32 H (22-30) mmol/L Glucose 125 H (74-99) mg/dL C-Reactive Protein 6.4 H (<1.0) mg/dL Microbiology - Last 24 Hours (Table) 06/20/21 19:56 Wound Culture - Preliminary Foot - Right H & H 06/20/21 Range/Units 19:43 Hgb 12.5 (11.4-16.0) gm/dL Hct 37.8 (34.0-46.0) % Result Diagrams: 06/20/21 19:43 06/20/21 19:43 Assessment and Plan (1) Cellulitis of right foot Current Visit: Yes Status: Acute Code(s): L03.115 - CELLULITIS OF RIGHT LOWER LIMB SNOMED Code(s): 198393533 Plan: 1. Continue IV antibiotics per infectious disease. 2. Patient is afebrile and white blood cell count is within normal limits. 3. No surgical intervention is planned. We will continue to follow.
[2021-06-21] MEDS: FLUTICASONE 110 MCG INHALER INHALATION SCH ×2 (11:07→21:04)
[2021-06-21] MEDS: VANCOMYCIN 1,250 MG in SODIUM CHLORIDE 0.9% 250 ML IVPB SCH ×2 (13:28→22:47)
[2021-06-21 16:48] LABS: Glucose,Whole Blood 125 mg/dL (75-99)
--- NOTE | 2021-06-21 17:45 | P.PN ---
Subjective Progress Note Date: 06/21/21 Principal diagnosis: Osteomyelitis of right foot 71-year-old female presents to the emergency department via EMS for evaluation of right foot infection. Patient states she recently had surgery due to an abscess and was told it was MSRA. States she has been seen by infectious disease and has been on antibiotics previously, though is uncertain of what she has taken. Patient complains of increased redness, swelling, and pain. Has had drainage from incision site with blistering as well. States she has been taking her Tylenol 3 with no improvement. Reports taking her anticoagulant as prescribed. Denies fever, chills, headache, chest pain, shortness of breath, difficulty breathing, abdominal pain, nausea, vomiting, diarrhea, or dysuria. Objective - Vital Signs Vital signs: Vital Signs Temp 98.3 F 06/20/21 17:45 Pulse 67 06/21/21 07:28 Resp 19 06/21/21 07:28 BP 131/69 06/21/21 07:28 Pulse Ox 96 06/21/21 07:28 Intake & Output 06/20/21 06/21/21 06/21/21 18:59 06:59 18:59 Weight 77.564 kg - Exam PHYSICAL EXAMINATION: GENERAL: The patient is alert and oriented x3, not in any acute distress. Well developed, well nourished. HEENT: Pupils are round and equally reacting to light. EOMI. No scleral icterus. No conjunctival pallor. Normocephalic, atraumatic. No pharyngeal erythema. No thyromegaly. CARDIOVASCULAR: S1 and S2 present. No murmurs, rubs, or gallops. PULMONARY: Chest is clear to auscultation, no wheezing or crackles. ABDOMEN: Soft, nontender, nondistended, normoactive bowel sounds. No palpable organomegaly. MUSCULOSKELETAL: No joint swelling or deformity. EXTREMITIES: No cyanosis, clubbing, or pedal edema. NEUROLOGICAL: Gross neurological examination did not reveal any focal deficits. SKIN: No rashes. - Labs CBC & Chem 7: 06/20/21 19:43 06/20/21 19:43 Labs: Abnormal Lab Results - Last 24 Hours (Table) 06/20/21 06/20/21 06/21/21 Range/Units 19:43 23:41 01:13 ESR 30 H (0-20) mm/hr Sodium 135 L (137-145) mmol/L Carbon Dioxide 32 H (22-30) mmol/L Glucose 125 H (74-99) mg/dL C-Reactive Protein 6.4 H (<1.0) mg/dL Microbiology - Last 24 Hours (Table) 06/20/21 19:56 Wound Culture - Preliminary Foot - Right Assessment and Plan Assessment: 1. Osteomyelitis of right foot/right foot cellulitis - Patient remains on vancomycin per pharmacy dosing; we will monitor CBC, CRP and pro-calcitonin - ID and podiatry consult in place and recommendations are pending 2. Hypothyroidism; levothyroxine 150 MCG daily 3. Hypertension; currently not on any antihypertensive therapy 4. Asthma/COPD; not in exacerbation; continue with home Flovent inhaler 5. Diabetes mellitus type 2; monitor Accu-Cheks every 6 hours as a business sliding scale 6. History of DVT; patient takes Eliquis 2.5 mg twice a day DVT prophylaxis; SCDs/systemic anticoagulation CODE STATUS; full code
--- NOTE | 2021-06-21 19:20 | P.CONS ---
History of Present Illness - Reason for Consult Consult date: 06/21/21 right foot infection Requesting physician: Reza Lira - Chief Complaint right foot pain and redness x few days - History of Present Illness Patient is a 71-year female who recently did have a excision of the bursa right foot and partial fifth metatarsal head amputation by Dr. Tran on 06/11/2021 patient mention over the last few days she noticed to having increasing pain swelling redness to the right foot lateral border at her surgical incision site she describes the pain to be throbbing intensity is almost 7-8 out of 10 no radiation patient did have associated swelling and redness and did have some drainage with the symptom the patient did present to the hospital on arrival to the ER patient was afebrile patient did have a normal white count creatinine was normal CRP was 6.4 sed rate of 30 local culture have been obtained which are currently pending patient did have a x-ray of the foot which shows fifth metatarsal deformity could relate to surgery osteomyelitis is possible patient was started on vancomycin infectious disease was consulted for further management of antibiotic therapy Review of Systems Positive point has been mentioned in the HPI rest of the systems are negative Past Medical History Past Medical History: Asthma, COPD, Diabetes Mellitus, Deep Vein Thrombosis (DVT), Eye Disorder, GERD/Reflux, Hypertension, Osteoarthritis (OA), Pneumonia, Skin Disorder, Thyroid Disorder Additional Past Medical History / Comment(s): MRSA infection rt foot 5th digit and side of rt foot, Hx GLAUCOMA, TMJ, RENAL CALCULI, UTIs, DVT X 5 ( STATES CAUSED BY CONTROL PILLS AND HORMONES),F[place], HAND TREMORS History of Any Multi-Drug Resistant Organisms: MRSA Year Discovered:: 04/15/21 MDRO Source:: MRSA FOOT Past Surgical History: Back Surgery, Bladder Surgery, Breast Surgery, Heart Catheterization, Hysterectomy, Joint Replacement, Orthopedic Surgery, Tonsillectomy Additional Past Surgical History / Comment(s): 04/17/16 arthrotomy removal olecranon spur and loose bodies R elbow. , JULIANNE TOTAL HIP, LAPAROSCOPY, BREAST BIOPSY, JULIANNE CARPAL TUNNEL, JULIANNE KNEE REPLACEMENT, JULIANNE ROTATOR CUFF REPAIR, LEFT FOOT SURG, Right foot bursa removal, Past Anesthesia/Blood Transfusion Reactions: Postoperative Nausea & Vomiting (PONV) Past Psychological History: No Psychological Hx Reported Smoking Status: Never smoker Past Alcohol Use History: Rare Past Drug Use History: None Reported - Past Family History Mother Family Medical History: Hyperlipidemia, Hypertension Additional Family Medical History / Comment(s): Mother at age 96. Father Family Medical History: Osteoarthritis (OA) Sister(s) Family Medical History: Pulmonary Embolus Medications and Allergies Home Medications Medication Instructions Recorded Confirmed Type Levothyroxine Sodium [Synthroid] 150 mcg PO SUTUTHSA 10/02/13 06/20/21 History Levothyroxine Sodium [Synthroid] 175 mcg PO MOWEFR 10/02/13 06/20/21 History Nitroglycerin Sl Tabs [Nitrostat] 0.4 mg SL Q5M PRN 10/02/13 06/20/21 History Aspirin [Adult Low Dose Aspirin EC] 81 mg PO DAILY 09/29/19 06/20/21 History Zinc 50 mg PO DAILY 02/09/20 06/20/21 History Primidone [Mysoline] 250 mg PO HS 05/15/20 06/20/21 History Meclizine [Antivert] 12.5 mg PO HS 10/22/20 06/20/21 History Apixaban [Eliquis] 2.5 mg PO BID #0 04/29/21 06/20/21 Rx Acetaminophen-Codeine 300-30mg 1 tab PO Q6H PRN MDD 6 tabs 05/05/21 06/20/21 History [Tylenol w/codeine #3] Cyclobenzaprine [Flexeril] 10 mg PO Q12H PRN 05/05/21 06/20/21 History Famotidine [Pepcid] 20 mg PO BID@0600,2100 05/05/21 06/20/21 History Loperamide HCl [Imodium A-D] 2 mg PO BID 05/05/21 06/20/21 History Melatonin 10 mg PO HS PRN 05/05/21 06/20/21 History Multivitamins, Thera [Multivitamin 1 tab PO DAILY 05/05/21 06/20/21 History (formulary)] Ondansetron [Zofran] 4 mg PO Q6H PRN 05/05/21 06/20/21 History Acetaminophen Tab [Tylenol] 325 mg PO Q6HR PRN 06/10/21 06/20/21 History Cholecalciferol [Vitamin D3 (25 25 mcg PO DAILY 06/10/21 06/20/21 History Mcg = 1000 Iu)] Cranberry Fruit Concentrate [Azo 250 mg PO BID 06/10/21 06/20/21 History Cranberry] Dicyclomine HCl 10 mg PO Q6H PRN 06/10/21 06/20/21 History Fluticasone Propionate [Flovent 1 puff INHALATION RT-BID 06/10/21 06/20/21 History Hfa 110 mcg] Gabapentin [Neurontin] 300 mg PO BID 06/10/21 06/20/21 History Insulin Aspart [NovoLOG Flexpen] See Protocol SQ AC-BID PRN 06/10/21 06/20/21 History Metoclopramide [Reglan] 10 mg PO DAILY PRN 06/10/21 06/20/21 History Topiramate [Topamax] 25 mg PO HS 06/10/21 06/20/21 History Allergies Allergy/AdvReac Type Severity Reaction Status Date / Time enoxaparin sodium Allergy Unknown RED LUMPS Verified 06/20/21 20:40 [From Lovenox] ON ABDOMEN AT INJECTION SITES erythromycin base Allergy Unknown Rash/Hives Verified 06/20/21 20:40 latex Allergy Unknown Itching Verified 06/20/21 20:40 adhesive Allergy Rash/Hives Verified 06/20/21 20:40 morphine Allergy Rash/Hives Verified 06/20/21 20:40 pioglitazone [From Actos] Allergy Swelling Verified 06/20/21 20:40 Sulfa (Sulfonamide Allergy Anaphylaxis Verified 06/20/21 20:40 Antibiotics) tetracycline [Tetracycline] Allergy Rash/Hives Verified 06/20/21 20:40 metformin AdvReac Diarrhea Verified 06/20/21 20:40 Physical Exam Vitals: Vital Signs Temp Pulse Resp BP Pulse Ox 06/21/21 11:21 98.2 F 60 18 125/58 99 06/21/21 07:28 67 19 131/69 96 06/20/21 23:00 62 18 159/82 95 06/20/21 19:30 64 18 144/77 06/20/21 19:00 138/82 98 06/20/21 18:30 68 18 141/71 98 06/20/21 18:00 99 06/20/21 17:59 148/82 98 06/20/21 17:45 98.3 F 67 18 148/82 98 Intake and Output 06/20/21 06/21/21 06/21/21 22:59 06:59 14:59 Other: Weight 77.564 kg GENERAL DESCRIPTION: Elderly female lying in bed, no distress. No tachypnea or accessory muscle of respiration use. HEENT: Shows Pallor , no scleral icterus. Oral mucous membrane is dry. No pharyngeal erythema or thrush NECK: Trachea central, no thyromegaly. LUNGS: Unlabored breathing. Clear to auscultation anteriorly. No wheeze or crackle. HEART: S1, S2, regular rate and rhythm. No loud murmur ABDOMEN: Soft, no tenderness , guarding or rigidity, no organomegaly EXTREMITIES: No edema of feet. Right foot lateral border did have stitches intact with some swelling and redness minimal drainage SKIN: No rash, no masses palpable. NEUROLOGICAL: The patient is awake, alert, oriented x3, mood and affect normal. Results CBC & Chem 7: 06/20/21 19:43 06/20/21 19:43 Labs: Abnormal Lab Results - Last 24 Hours (Table) 06/20/21 06/20/21 06/21/21 Range/Units 19:43 23:41 01:13 ESR 30 H (0-20) mm/hr Sodium 135 L (137-145) mmol/L Carbon Dioxide 32 H (22-30) mmol/L Glucose 125 H (74-99) mg/dL C-Reactive Protein 6.4 H (<1.0) mg/dL Microbiology - Last 24 Hours (Table) 06/20/21 19:56 Wound Culture - Preliminary Foot - Right Assessment and Plan (1) Cellulitis of right foot Current Visit: Yes Status: Acute Code(s): L03.115 - CELLULITIS OF RIGHT LOWER LIMB SNOMED Code(s): 116414398 Plan: 1patient with right foot surgical site infection in this patient who recently did have a right fifth metatarsal partial resection and the patient also have a history of MRSA infection in the recent past and will need to cover for the MRSA to be the likely pathogen 2-Marked area of the redness 3-vancomycin pharmacy to dose target trough of 15 while watching kidney function and vancomycin trough closely We will follow on clinical condition and cultures to further adjust medication if needed Thank you for this consultation will follow this patient along with you Time with Patient: Greater than 30
[2021-06-21 20:44] LABS: Glucose,Whole Blood 160 mg/dL (75-99)
[2021-06-21] MEDS: MELATONIN 5 MG TABLET PO PRN (21:19)
[2021-06-21] MEDS: TOPIRAMATE 25 MG TAB PO SCH (22:43)
[2021-06-21] MEDS: PRIMIDONE 250 MG TAB PO SCH (22:43)
[2021-06-22] MEDS: LEVOTHYROXINE 75 MCG TAB PO SCH (05:48)
[2021-06-22] MEDS: FAMOTIDINE 20 MG TAB PO SCH ×2 (05:48→21:27)
[2021-06-22] MEDS: ASPIRIN 81 MG PO SCH (07:07)
[2021-06-22] MEDS: APIXABAN 2.5 MG TABLET PO SCH ×2 (07:07→20:08)
[2021-06-22] MEDS: GABAPENTIN 300 MG CAP PO SCH ×2 (07:07→20:08)
[2021-06-22] MEDS: ONDANSETRON 4 MG/2 ML VIAL IVP PRN (07:07)
[2021-06-22 07:11] LABS: Glucose,Whole Blood 158 mg/dL (75-99)
[2021-06-22] MEDS: HYDROcodone/APAP 5-325MG 1 EACH TAB PO PRN ×2 (07:11→20:09)
[2021-06-22] MEDS: FLUTICASONE 110 MCG INHALER INHALATION SCH ×2 (07:41→21:24)
--- NOTE | 2021-06-22 09:53 | P.PN ---
Subjective Progress Note Date: 06/22/21 Principal diagnosis: Cellulitis right foot, presumptive MRSA infection Approximately 2 weeks ago the presented to the office complaining of increased pain in the right foot. During physical examination there was edema and erythema over the fifth metatarsal phalangeal joint. The area was soft and boggy and warm to the touch. The initial diagnosis was an abscess in the right foot and the patient was scheduled for an incision and drainage. During the course of surgery is noted that there was no evidence of any purulent drainage or necrotic tissue. There was however a large bursa plantar to the fifth metatarsal head. This bursa was excised and excessive bone was removed from the fifth metatarsal which had been a previous pressure point. The patient was then brought in for her first postop appointment complaining of severe pain in the right foot. During physical exam it was noted that there was severe erythema and edema of the right foot. There was a serosanguineous drainage from the incision. We attempted to have IV antibiotic therapy done outpatient utilizing Dalvance which is an incision that is done 1 week with 1000 mg and then 1 week later 500 mg. However we were unable to obtain the proper authorization from her insurance company in a timely manner. Given this scenario I advised the patient to come into the hospital to be admitted so she can start IV vancomycin. Objective - Vital Signs Vital signs: Vital Signs Temp 98.8 F 06/22/21 07:41 Pulse 61 06/22/21 07:41 Resp 20 06/22/21 07:41 BP 125/65 06/22/21 07:41 Pulse Ox 98 06/22/21 07:41 Intake & Output 06/21/21 06/22/21 06/22/21 18:59 06:59 18:59 Weight 77.564 kg Other: # Voids 2 - Constitutional General appearance: Present: average body habitus - Peripheral edema foot Peripheral Edema: right: 1+ - Peripheral pulses dorsalis pedis Peripheral Pulses: right: Normal posterior tibial Peripheral Pulses: right: Normal - Integumentary Integumentary Comment(s): Decreased erythema the right forefoot. The incision remains intact. There is serosanguineous drainage from the incision. Integumentary: Present: cellulitis - Neurologic Neurologic Comment(s): Intact sensation right foot - Psychiatric Psychiatric: Present: A&O x's 3 - Labs CBC & Chem 7: 06/20/21 19:43 06/20/21 19:43 Labs: Abnormal Lab Results - Last 24 Hours (Table) 06/21/21 06/21/21 06/22/21 Range/Units 16:47 20:27 07:10 POC Glucose (mg/dL) 125 H 160 H 158 H (75-99) mg/dL Microbiology - Last 24 Hours (Table) 06/20/21 19:56 Gram Stain - Preliminary Foot - Right Wound Culture - Preliminary Presumptive MRSA 06/20/21 20:30 Blood Culture - Preliminary Blood No Growth after 24 hours 06/20/21 20:45 Blood Culture - Preliminary Blood No Growth after 24 hours Assessment and Plan Assessment: Cellulitis right foot presumptive MRSA infection (1) Cellulitis of right foot Current Visit: Yes Status: Acute Code(s): L03.115 - CELLULITIS OF RIGHT LOWER LIMB SNOMED Code(s): 860694807 Plan: Patient appears to responding favorably to the antibiotics. Labs reveal that she has no leukocytosis. ESR and C-reactive protein are elevated which would be expected given the clinical scenario. Continue IV vancomycin therapy. The dressing orders were entered into the computer as follows: Opticell Ag over the incision, cover with ABD, secure with Kerlix. Change daily. Minimize weight on the right foot
[2021-06-22 11:59] LABS: Glucose,Whole Blood 217 mg/dL (75-99)
[2021-06-22] MEDS: VANCOMYCIN 1,250 MG in SODIUM CHLORIDE 0.9% 250 ML IVPB SCH ×2 (12:07→23:33)
[2021-06-22 12:42] LABS: Basophils # (A) 0.03 X 10*3/uL (0.00-0.10); Basophils % (A) 0.4 %; Eosinophils # (A) 0.18 X 10*3/uL (0.04-0.35); Eosinophils % (A) 2.4 %; HGB 12.8 g/dL (12.0-15.0); Immature Grans, Automated 0.5 %; Lymphocytes # (A) 1.25 X 10*3/uL (0.90-5.00); Lymphocytes % (A) 16.8 %; MCH 31.4 pg (27.0-32.0); MCV 98.3 fL (80.0-97.0); Mean Platelet Volume 8.9 fL (9.5-12.2); Monocytes # (A) 0.61 X 10*3/uL (0.20-1.00); Monocytes % (A) 8.2 %; NRBC Per 100 WBC 0 /100 WBCS (0.0-0.0); Neutrophils # (A) 5.33 X 10*3/uL (1.80-7.70); Neutrophils % (A) 71.7 %; Platelet Count 241 X 10*3/uL (140-440); RBC 4.07 X 10*6/uL (4.10-5.20); RDW 11.9 % (11.5-14.5); WBC 7.44 X 10*3/uL (4.50-10.00)
[2021-06-22 13:22] LABS: African American GFR (CKD) 101.3 (60.0-200.0); Anion Gap 12.6 mmol/L (10.00-18.00); BUN/Creat Ratio 14.52 Ratio (12.00-20.00); Blood Urea Nitrogen 9.9 mg/dL (9.0-27.0); C Reactive Protein 3.3 mg/dL (0.00-0.80); Calcium 8.8 mg/dL (8.7-10.3); Carbon Dioxide 23.5 mmol/L (20.0-27.5); Non-African American GFR(CKD) 87.4 (60.0-200.0); Potassium 4.5 mmol/L (3.5-5.5)
[2021-06-22] MEDS: INSULIN ASPART (NovoLOG) 100 UNIT/ML VIAL SQ SCH ×3 (14:47→21:25)
[2021-06-22 17:08] LABS: Glucose,Whole Blood 122 mg/dL (75-99)
--- NOTE | 2021-06-22 20:03 | P.PN ---
Subjective Progress Note Date: 06/22/21 Principal diagnosis: Osteomyelitis of right foot 71-year-old female presents to the emergency department via EMS for evaluation of right foot infection. Patient states she recently had surgery due to an abscess and was told it was MSRA. States she has been seen by infectious disease and has been on antibiotics previously, though is uncertain of what she has taken. Patient complains of increased redness, swelling, and pain. Has had drainage from incision site with blistering as well. States she has been taking her Tylenol 3 with no improvement. Reports taking her anticoagulant as prescribed. Denies fever, chills, headache, chest pain, shortness of breath, difficulty breathing, abdominal pain, nausea, vomiting, diarrhea, or dysuria. 06/22/2021 Patient is seen and evaluated sitting up in bed; family members at bedside Vital signs are reviewed. Temperature 98.8, pulse 61, respiration 20 and blood pressure 125/65 Lab review shows to be 07.44, hemoglobin of 12.8, sodium 134, has a 4.5, BUN/creatinine of 9.9/0.7 Patient remains on IV antibiotics; ID and podiatry on board for cellulitis/osteomyelitis right fifth toe Objective - Vital Signs Vital signs: Vital Signs Temp 98.8 F 06/22/21 07:41 Pulse 61 06/22/21 07:41 Resp 20 06/22/21 07:41 BP 125/65 06/22/21 07:41 Pulse Ox 98 06/22/21 07:41 Intake & Output 06/21/21 06/22/21 06/22/21 18:59 06:59 18:59 Weight 77.564 kg Other: # Voids 2 - Exam PHYSICAL EXAMINATION: GENERAL: The patient is alert and oriented x3, not in any acute distress. Well developed, well nourished. HEENT: Pupils are round and equally reacting to light. EOMI. No scleral icterus. No conjunctival pallor. Normocephalic, atraumatic. No pharyngeal erythema. No thyromegaly. CARDIOVASCULAR: S1 and S2 present. No murmurs, rubs, or gallops. PULMONARY: Chest is clear to auscultation, no wheezing or crackles. ABDOMEN: Soft, nontender, nondistended, normoactive bowel sounds. No palpable organomegaly. MUSCULOSKELETAL: No joint swelling or deformity. EXTREMITIES: No cyanosis, clubbing, or pedal edema. NEUROLOGICAL: Gross neurological examination did not reveal any focal deficits. SKIN: No rashes. - Labs CBC & Chem 7: 06/22/21 07:34 06/22/21 07:34 Labs: Abnormal Lab Results - Last 24 Hours (Table) 06/21/21 06/21/21 06/22/21 Range/Units 16:47 20:27 07:10 RBC (4.10-5.20) X 10*6/uL MCV (80.0-97.0) fL MPV (9.5-12.2) fL Sodium (135-145) mmol/L Glucose (70-110) mg/dL POC Glucose (mg/dL) 125 H 160 H 158 H (75-99) mg/dL C-Reactive Protein (0.00-0.80) mg/dL 06/22/21 06/22/21 06/22/21 Range/Units 07:34 07:34 11:58 RBC 4.07 L (4.10-5.20) X 10*6/uL MCV 98.3 H (80.0-97.0) fL MPV 8.9 L (9.5-12.2) fL Sodium 134 L (135-145) mmol/L Glucose 152 H (70-110) mg/dL POC Glucose (mg/dL) 217 H (75-99) mg/dL C-Reactive Protein 3.30 H (0.00-0.80) mg/dL Microbiology - Last 24 Hours (Table) 06/20/21 19:56 Gram Stain - Preliminary Foot - Right Wound Culture - Preliminary Presumptive MRSA 06/20/21 20:30 Blood Culture - Preliminary Blood No Growth after 24 hours 06/20/21 20:45 Blood Culture - Preliminary Blood No Growth after 24 hours Assessment and Plan Assessment: 1. Osteomyelitis of right foot/right foot cellulitis - Patient remains on vancomycin per pharmacy dosing; we will monitor CBC, CRP and pro-calcitonin - ID and podiatry consult in place and recommendations are pending 2. Hypothyroidism; levothyroxine 150 MCG daily 3. Hypertension; currently not on any antihypertensive therapy 4. Asthma/COPD; not in exacerbation; continue with home Flovent inhaler 5. Diabetes mellitus type 2; monitor Accu-Cheks every 6 hours as a business sliding scale 6. History of DVT; patient takes Eliquis 2.5 mg twice a day DVT prophylaxis; SCDs/systemic anticoagulation CODE STATUS; full code
[2021-06-22] MEDS: PRIMIDONE 250 MG TAB PO SCH (20:09)
[2021-06-22] MEDS: MELATONIN 5 MG TABLET PO PRN (20:09)
[2021-06-22] MEDS: TOPIRAMATE 25 MG TAB PO SCH (20:09)
[2021-06-22 20:53] LABS: Glucose,Whole Blood 202 mg/dL (75-99)
--- NOTE | 2021-06-22 23:39 | P.PN ---
Subjective Progress Note Date: 06/22/21 Principal diagnosis: Right foot infection Patient is a 71-year-old female who is status post bursectomy wound on the plantar aspect of the left metatarsal head and the patient also have a excisional of the left fifth metatarsal head with a postop complication of cellulitis and culture now showing MRSA. On today's evaluation that is 06/22/2021, the patient denies having any fever or any chills secondary to pain to the right foot area no worsening or no chest pain shortness of breath or cough no abdominal pain and no diarrhea Objective - Vital Signs Vital signs: Vital Signs Temp 98.8 F 06/22/21 07:41 Pulse 61 06/22/21 07:41 Resp 20 06/22/21 07:41 BP 125/65 06/22/21 07:41 Pulse Ox 98 06/22/21 07:41 Intake & Output 06/21/21 06/22/21 06/22/21 18:59 06:59 18:59 Weight 77.564 kg Other: # Voids 2 - Exam GENERAL DESCRIPTION: An elderly female lying in bed in no distress RESPIRATORY SYSTEM: Unlabored breathing , decreased breath sounds at bases HEART: S1 S2 regular rate and rhythm , ABDOMEN: Soft , no tenderness EXTREMITIES: Right foot is currently dressed up no drainage on the dressing - Labs CBC & Chem 7: 06/22/21 07:34 06/22/21 07:34 Labs: Abnormal Lab Results - Last 24 Hours (Table) 06/21/21 06/21/21 06/22/21 Range/Units 16:47 20:27 07:10 RBC (4.10-5.20) X 10*6/uL MCV (80.0-97.0) fL MPV (9.5-12.2) fL POC Glucose (mg/dL) 125 H 160 H 158 H (75-99) mg/dL 06/22/21 06/22/21 Range/Units 07:34 11:58 RBC 4.07 L (4.10-5.20) X 10*6/uL MCV 98.3 H (80.0-97.0) fL MPV 8.9 L (9.5-12.2) fL POC Glucose (mg/dL) 217 H (75-99) mg/dL Microbiology - Last 24 Hours (Table) 06/20/21 19:56 Gram Stain - Preliminary Foot - Right Wound Culture - Preliminary Presumptive MRSA 06/20/21 20:30 Blood Culture - Preliminary Blood No Growth after 24 hours 06/20/21 20:45 Blood Culture - Preliminary Blood No Growth after 24 hours Assessment and Plan (1) Cellulitis of right foot Current Visit: Yes Status: Acute Code(s): L03.115 - CELLULITIS OF RIGHT LOWER LIMB SNOMED Code(s): 239890014 Plan: 1patient with right foot surgical site infection in this patient who recently did have a right fifth metatarsal partial resection and the patient also have a history of MRSA infection in the recent past and cultures done this admission showing presumptive MRSA 2- patient to continue with vancomycin pharmacy to dose target trough of 15 while watching kidney function and vancomycin trough closely Time with Patient: Less than 30
[2021-06-23] MEDS: HYDROcodone/APAP 5-325MG 1 EACH TAB PO PRN ×5 (01:48→22:04)
[2021-06-23 03:59] LABS: Appearance,Urine Cloudy (Clear); Bacteria,Urine Occasional /hpf; Bilirubin,Urine Negative (Negative); Blood,Urine Small (Negative); Color,Urine Light Yellow; Glucose,Urine (UA) Negative (Negative); Ketones,Urine Negative (Negative); Leukocyte Esterase,Urine Large (Negative); Mucus,Urine Rare /hpf; Nitrite,Urine Positive (Negative); Protein,Urine Trace (Negative); RBC,Urine 5 /hpf (0-5); Specific Gravity,Urine 1.008 (1.001-1.035); Urobilinogen,Urine <2.0 mg/dL (<2.0); WBC,Urine >182 /hpf (0-5)
[2021-06-23] MEDS: FAMOTIDINE 20 MG TAB PO SCH ×2 (05:13→20:32)
[2021-06-23] MEDS: [UNRECOGNIZED DRUG - OTHER] PO SCH (05:13)
[2021-06-23 07:45] LABS: Glucose,Whole Blood 134 mg/dL (75-99)
[2021-06-23] MEDS: FLUTICASONE 110 MCG INHALER INHALATION SCH ×2 (08:35→21:59)
[2021-06-23] MEDS: ASPIRIN 81 MG PO SCH (09:24)
[2021-06-23] MEDS: APIXABAN 2.5 MG TABLET PO SCH ×2 (09:24→20:32)
[2021-06-23] MEDS: GABAPENTIN 300 MG CAP PO SCH ×2 (09:24→20:32)
[2021-06-23] MEDS: INSULIN ASPART (NovoLOG) 100 UNIT/ML VIAL SQ SCH ×4 (09:24→20:32)
[2021-06-23] MEDS ORDERED: VANCOMYCIN TROUGH DUE 1 EACH MISC MISCELLANE ONE (10:00)
[2021-06-23 11:32] LABS: Glucose,Whole Blood 238 mg/dL (75-99)
[2021-06-23] MEDS: VANCOMYCIN 1,250 MG in SODIUM CHLORIDE 0.9% 250 ML IVPB SCH (12:05)
[2021-06-23 17:00] LABS: Glucose,Whole Blood 168 mg/dL (75-99)
--- NOTE | 2021-06-23 18:56 | XR ---
EXAMINATION TYPE: XR chest 1V portable DATE OF EXAM: 06/23/2021 6:39 PM COMPARISON:Chest radiographs from 05/05/2021 TECHNIQUE: XR chest 1V portable Frontal view of the chest. CLINICAL INDICATION:Female, 71 years old with history of chest pain; FINDINGS: Lungs/Pleura: There is no evidence of pleural effusion, focal consolidation, or pneumothorax. Pulmonary vascularity: Unremarkable. Heart/mediastinum: Cardiomediastinal silhouette is prominent in size. Musculoskeletal: No acute osseous pathology. IMPRESSION: No acute cardiopulmonary disease/process.
[2021-06-23 20:31] LABS: Glucose,Whole Blood 181 mg/dL (75-99)
[2021-06-23] MEDS: PRIMIDONE 250 MG TAB PO SCH (20:31)
[2021-06-23] MEDS: TOPIRAMATE 25 MG TAB PO SCH (20:32)
--- NOTE | 2021-06-23 22:01 | P.PN ---
Subjective Progress Note Date: 06/23/21 Principal diagnosis: Osteomyelitis of right foot 71-year-old female presents to the emergency department via EMS for evaluation of right foot infection. Patient states she recently had surgery due to an abscess and was told it was MS. States she has been seen by infectious disease and has been on antibiotics previously, though is uncertain of what she has taken. Patient complains of increased redness, swelling, and pain. Has had drainage from incision site with blistering as well. States she has been taking her Tylenol 3 with no improvement. Reports taking her anticoagulant as prescribed. Denies fever, chills, headache, chest pain, shortness of breath, difficulty breathing, abdominal pain, nausea, vomiting, diarrhea, or dysuria. 06/22/2021 Patient is seen and evaluated sitting up in bed; family members at bedside Vital signs are reviewed. Temperature 98.8, pulse 61, respiration 20 and blood pressure 125/65 Lab review shows to be 07.44, hemoglobin of 12.8, sodium 134, has a 4.5, BUN/creatinine of 9.9/0.7 Patient remains on IV antibiotics; ID and podiatry on board for cellulitis/osteomyelitis right fifth toe 06/23/2021 Patient evaluated today in bed. Wound cultures finalized to MRSA. Urinalysis was checked today which was suggestive of infection, culture is currently pending. ID is following patient closely. She continues on IV Vancomycin. PT/OT consultation pending. States currently 4/10 pain to the right foot denies numbness and tingling. States pain medication is helping otherwise pain would be 10/10. Also complaints of nausea and heartburn, She is on pepcid, will add maalox as well. Sodium today 134. Blood sugar elevated in the 200's, A1C from 06/05/21 was 6.5, patient has been on a regular diet, continue on novolog add meal time insulin. Afebrile, heart rate 72, did dropped to 59 throughout the night. Review of Systems Constitutional: Denied any fatigue denied any fever. Cardio vascular: denied any chest pain, palpitations Gastrointestinal: denied any nausea, vomiting, diarrhea, reports heart burn Pulmonary: Denied any shortness of breath cough Neurologic denied any new focal deficits All inpatient medications were reviewed and appropriate changes in these medications as dictated in the interval history and assessment and plan. PHYSICAL EXAMINATION: GENERAL: The patient is alert and oriented x3, not in any acute distress. Well developed, well nourished. HEENT: Pupils are round and equally reacting to light. EOMI. No scleral icterus. No conjunctival pallor. Normocephalic, atraumatic. No pharyngeal erythema. No thyromegaly. CARDIOVASCULAR: S1 and S2 present. No murmurs, rubs, or gallops. PULMONARY: Chest is clear to auscultation, no wheezing or crackles. ABDOMEN: Soft, nontender, nondistended, normoactive bowel sounds. No palpable organomegaly. MUSCULOSKELETAL: No joint swelling or deformity. EXTREMITIES: No cyanosis, clubbing, or pedal edema. NEUROLOGICAL: Gross neurological examination did not reveal any focal deficits. SKIN: No rashes. Right foot wrapped in tabitha. Assessment and plan Assessment Osteomyelitis of right foot/ right foot cellulitis on vancomycin Hypothyroidism Hypertension not currently on medication Asthma/COPD, not in acute exacerbation Diabetes mellitus type II History of DVT GI prophylaxis: pepcid will add maalox DVT prophylaxis: on eliquis Full code Plan Continue on IV vanco further recommendations from ID Urine culture pending PT/OT consult add maalox today repeat BMP in AM Discharge in next 24 to 48 hours The impression and plan of care has been dictated by Hodan Dominguez, Nurse Practitioner as directed. Dr. Ramana MD I have performed a history and physical examination and medical decision making of this patient, discussed the same with the dictator, and agree with the dictators assessment and plan as written, documented as a scribe. Based on total visit time, I have performed more than 50% of this visit. Objective - Vital Signs Vital signs: Vital Signs Temp 98.1 F 06/23/21 14:17 Pulse 72 06/23/21 14:17 Resp 16 06/23/21 14:17 BP 126/69 06/23/21 14:17 Pulse Ox 95 06/23/21 14:17 Intake & Output 06/22/21 06/23/21 06/23/21 18:59 06:59 18:59 Intake Total 550 Balance 550 Intake: Intake, IV Titration 250 Amount Vancomycin 1,250 mg In 250 Sodium Chloride 0.9% 250 ml @ 125 mls/hr IVPB Q12H [facility] Rx#:[id number] Oral 300 Other: Voiding Method Bedside Commode Bedside Commode # Voids 3 3 3 - Labs CBC & Chem 7: 06/22/21 07:34 06/22/21 07:34 Labs: Abnormal Lab Results - Last 24 Hours (Table) 06/22/21 06/22/21 06/23/21 Range/Units 17:06 20:50 03:20 POC Glucose (mg/dL) 122 H 202 H (75-99) mg/dL Urine Appearance Cloudy H (Clear) Urine Protein Trace H (Negative) Urine Blood Small H (Negative) Urine Nitrite Positive H (Negative) Ur Leukocyte Esterase Large H (Negative) Urine WBC >182 H (0-5) /hpf Urine WBC Clumps Many H (None) /hpf Urine Bacteria Occasional H (None) /hpf Urine Mucus Rare H (None) /hpf 06/23/21 06/23/21 Range/Units 07:19 11:23 POC Glucose (mg/dL) 134 H 238 H (75-99) mg/dL Urine Appearance (Clear) Urine Protein (Negative) Urine Blood (Negative) Urine Nitrite (Negative) Ur Leukocyte Esterase (Negative) Urine WBC (0-5) /hpf Urine WBC Clumps (None) /hpf Urine Bacteria (None) /hpf Urine Mucus (None) /hpf Microbiology - Last 24 Hours (Table) 06/23/21 03:20 Urine Culture - Preliminary Urine,Voided 06/20/21 20:30 Blood Culture - Preliminary Blood No Growth after 48 hours 06/20/21 20:45 Blood Culture - Preliminary Blood No Growth after 48 hours 06/20/21 19:56 Gram Stain - Final Foot - Right Wound Culture - Final Methicillin resist S. aureus Assessment and Plan Time with Patient: Less than 30
[2021-06-23] MEDS: MAG HYDROX/AL HYDROX/SIMETH 30 ML CUP PO SCH (22:04)
[2021-06-23] MEDS: MELATONIN 5 MG TABLET PO PRN (22:05)
[2021-06-23] MEDS: VANCOMYCIN 1,500 MG in SODIUM CHLORIDE 0.9% 250 ML IVPB SCH (22:09)
--- NOTE | 2021-06-23 22:25 | P.PN ---
Subjective Progress Note Date: 06/23/21 Principal diagnosis: Right foot infection Patient is a 71-year-old female who is status post bursectomy wound on the plantar aspect of the left metatarsal head and the patient also have a excisional of the left fifth metatarsal head with a postop complication of cellulitis and culture now showing MRSA. On today's evaluation that is 06/23/2021, the patient remains to be afebrile, the patient is still complaining of pain to the right foot area however no worsening or no chest pain shortness of breath or cough no abdominal pain and no diarrhea Objective - Vital Signs Vital signs: Vital Signs Temp 97.9 F 06/23/21 07:00 Pulse 59 L 06/23/21 07:00 Resp 18 06/23/21 07:00 BP 123/68 06/23/21 07:00 Pulse Ox 93 L 06/23/21 07:00 Intake & Output 06/22/21 06/23/21 06/23/21 18:59 06:59 18:59 Intake Total 550 Balance 550 Intake: Intake, IV Titration 250 Amount Vancomycin 1,250 mg In 250 Sodium Chloride 0.9% 250 ml @ 125 mls/hr IVPB Q12H [facility] Rx#:[id number] Oral 300 Other: Voiding Method Bedside Commode Bedside Commode # Voids 3 3 - Exam GENERAL DESCRIPTION: An elderly female lying in bed in no distress RESPIRATORY SYSTEM: Unlabored breathing , decreased breath sounds at bases HEART: S1 S2 regular rate and rhythm , ABDOMEN: Soft , no tenderness EXTREMITIES: Right foot is currently dressed up no drainage on the dressing - Labs CBC & Chem 7: 06/22/21 07:34 06/22/21 07:34 Labs: Abnormal Lab Results - Last 24 Hours (Table) 06/22/21 06/22/21 06/23/21 Range/Units 17:06 20:50 03:20 POC Glucose (mg/dL) 122 H 202 H (75-99) mg/dL Urine Appearance Cloudy H (Clear) Urine Protein Trace H (Negative) Urine Blood Small H (Negative) Urine Nitrite Positive H (Negative) Ur Leukocyte Esterase Large H (Negative) Urine WBC >182 H (0-5) /hpf Urine WBC Clumps Many H (None) /hpf Urine Bacteria Occasional H (None) /hpf Urine Mucus Rare H (None) /hpf 06/23/21 06/23/21 Range/Units 07:19 11:23 POC Glucose (mg/dL) 134 H 238 H (75-99) mg/dL Urine Appearance (Clear) Urine Protein (Negative) Urine Blood (Negative) Urine Nitrite (Negative) Ur Leukocyte Esterase (Negative) Urine WBC (0-5) /hpf Urine WBC Clumps (None) /hpf Urine Bacteria (None) /hpf Urine Mucus (None) /hpf Microbiology - Last 24 Hours (Table) 06/23/21 03:20 Urine Culture - Preliminary Urine,Voided 06/20/21 20:30 Blood Culture - Preliminary Blood No Growth after 48 hours 06/20/21 20:45 Blood Culture - Preliminary Blood No Growth after 48 hours 06/20/21 19:56 Gram Stain - Final Foot - Right Wound Culture - Final Methicillin resist S. aureus Assessment and Plan (1) Cellulitis of right foot Current Visit: Yes Status: Acute Code(s): L03.115 - CELLULITIS OF RIGHT LOWER LIMB SNOMED Code(s): 820845888 Plan: 1patient with right foot surgical site infection in this patient who recently did have a right fifth metatarsal partial resection and the patient also have a history of MRSA infection in the recent past and cultures done this admission has been finalized as MRSA, blood culture negative so for 2- patient currently being treated with vancomycin pharmacy to dose target trough of 15 while watching kidney function and vancomycin trough closely. 3patient with a PICC line and outpatient IV antibiotic therapy Time with Patient: Less than 30
[2021-06-24] MEDS: ONDANSETRON 4 MG/2 ML VIAL IVP PRN ×3 (00:10→19:46)
[2021-06-24] MEDS ORDERED: KETOROLAC 15 MG/ML 1 ML VIAL IVP STA (00:20)
[2021-06-24] MEDS: FAMOTIDINE 20 MG TAB PO SCH ×2 (05:38→21:19)
[2021-06-24] MEDS: LEVOTHYROXINE 75 MCG TAB PO SCH (05:38)
[2021-06-24] MEDS: HYDROcodone/APAP 5-325MG 1 EACH TAB PO PRN ×4 (05:40→19:46)
[2021-06-24 07:17] LABS: Glucose,Whole Blood 121 mg/dL (75-99)
[2021-06-24] MEDS: FLUTICASONE 110 MCG INHALER INHALATION SCH ×2 (07:27→20:23)
[2021-06-24 09:27] LABS: African American GFR (CKD) 103.2 (60.0-200.0); Anion Gap 7.7 mmol/L (10.00-18.00); BUN/Creat Ratio 22.27 Ratio (12.00-20.00); Blood Urea Nitrogen 14.3 mg/dL (9.0-27.0); Calcium 8.9 mg/dL (8.7-10.3); Carbon Dioxide 24.4 mmol/L (20.0-27.5); Non-African American GFR(CKD) 89.1 (60.0-200.0); Potassium 4.5 mmol/L (3.5-5.5)
[2021-06-24] MEDS: ASPIRIN 81 MG PO SCH (09:36)
[2021-06-24] MEDS: APIXABAN 2.5 MG TABLET PO SCH (09:36)
[2021-06-24] MEDS: MAG HYDROX/AL HYDROX/SIMETH 30 ML CUP PO SCH ×5 (09:36→22:46)
[2021-06-24] MEDS: GABAPENTIN 300 MG CAP PO SCH ×2 (09:36→21:19)
[2021-06-24] MEDS: INSULIN ASPART (NovoLOG) 100 UNIT/ML VIAL SQ SCH ×4 (09:37→21:21)
[2021-06-24 11:51] LABS: Glucose,Whole Blood 130 mg/dL (75-99)
[2021-06-24] MEDS: VANCOMYCIN 1,500 MG in SODIUM CHLORIDE 0.9% 250 ML IVPB SCH ×2 (12:39→22:43)
--- NOTE | 2021-06-24 13:58 | P.PN ---
Subjective Progress Note Date: 06/24/21 Principal diagnosis: Osteomyelitis of right foot 71-year-old female presents to the emergency department via EMS for evaluation of right foot infection. Patient states she recently had surgery due to an abscess and was told it was MS. States she has been seen by infectious disease and has been on antibiotics previously, though is uncertain of what she has taken. Patient complains of increased redness, swelling, and pain. Has had drainage from incision site with blistering as well. States she has been taking her Tylenol 3 with no improvement. Reports taking her anticoagulant as prescribed. Denies fever, chills, headache, chest pain, shortness of breath, difficulty breathing, abdominal pain, nausea, vomiting, diarrhea, or dysuria. 06/22/2021 Patient is seen and evaluated sitting up in bed; family members at bedside Vital signs are reviewed. Temperature 98.8, pulse 61, respiration 20 and blood pressure 125/65 Lab review shows to be 07.44, hemoglobin of 12.8, sodium 134, has a 4.5, BUN/creatinine of 9.9/0.7 Patient remains on IV antibiotics; ID and podiatry on board for cellulitis/osteomyelitis right fifth toe 06/23/2021 Patient evaluated today in bed. Wound cultures finalized to MRSA. Urinalysis was checked today which was suggestive of infection, culture is currently pending. ID is following patient closely. She continues on IV Vancomycin. PT/OT consultation pending. States currently 4/10 pain to the right foot denies numbness and tingling. States pain medication is helping otherwise pain would be 10/10. Also complaints of nausea and heartburn, She is on pepcid, will add maalox as well. Sodium today 134. Blood sugar elevated in the 200's, A1C from 06/05/21 was 6.5, patient has been on a regular diet, continue on novolog add meal time insulin. Afebrile, heart rate 72, did dropped to 59 throughout the night. 06/24/2021 Patient is evaluated today sitting up in a chair. Patient episodes of chest pain yesterday evening, she states that she was having squeezing midsternal chest pain unable to rate it and was spontaneously relieved. Has associated nausea, and dizziness, no diaphoresis. Troponin was negative, EKG shows sinus rhythm with nonspecific T-wave changes. Chest x-ray completed last night is negative for cardiopulmonary disease. She had a workup for similar chest pain earlier this year in April an echocardiogram at that time showed an EF of 55% with mild aortic valve sclerosis, mild mitral regurg, mild tricuspid regurg, cardiology cleared for discharge at that time with outpatient follow up. Consulted cardiology this admission. Complaining of heartburn, Patient also qu estioning if ok for suture removal to surgical site right foot, will reach out to surgical. Otherwise, PT recommending home with homecare, however ID recommendations for IV antibiotics on discharge. Complains of pain to right foot about a 6/10, dull ache states that pain medication is helping though when she gets it. Review of Systems Constitutional: Denied any fatigue denied any fever. Cardio vascular: Reports intermittent midsternal nonradiating chest pain describes as squeezing - currently none. Gastrointestinal: denied any nausea, vomiting, diarrhea, reports heart burn Pulmonary: Denied any shortness of breath cough Neurologic denied any new focal deficits All inpatient medications were reviewed and appropriate changes in these medications as dictated in the interval history and assessment and plan. PHYSICAL EXAMINATION: GENERAL: The patient is alert and oriented x3, not in any acute distress. Well developed, well nourished. HEENT: Pupils are round and equally reacting to light. EOMI. No scleral icterus. No conjunctival pallor. Normocephalic, atraumatic. No pharyngeal erythema. No thyromegaly. CARDIOVASCULAR: S1 and S2 present. No murmurs, rubs, or gallops. PULMONARY: Chest is clear to auscultation, no wheezing or crackles. ABDOMEN: Soft, nontender, nondistended, normoactive bowel sounds. No palpable organomegaly. MUSCULOSKELETAL: No joint swelling or deformity. EXTREMITIES: No cyanosis, clubbing, or mild right lower extremity peripheral edema NEUROLOGICAL: Gross neurological examination did not reveal any focal deficits. SKIN: No rashes. Right foot wrapped in tabitha. Assessment and plan Assessment Chest pain rule out ACS, troponin negative, cardiology consult for further evaluation Osteomyelitis of right foot/ right foot cellulitis on vancomycin Hypothyroidism Hypertension not currently on medication, normotensive today Asthma/COPD, not in acute exacerbation Diabetes mellitus type II with hyperglycemia History of DVT GI prophylaxis: pepcid will add maalox DVT prophylaxis: on eliquis Full code Plan Continue on IV vanco further recommendations from ID Urine culture pending Cardiology consult Continue local wound care per Dr Marc nam over incision, cover with abd and secure with kerlix Discharge planning The impression and plan of care has been dictated by Hodan Dominguez, Nurse Practitioner as directed. Dr. Ramana MD I have performed a history and physical examination and medical decision making of this patient, discussed the same with the dictator, and agree with the dictators assessment and plan as written, documented as a scribe. Based on total visit time, I have performed more than 50% of this visit. Objective - Vital Signs Vital signs: Vital Signs Temp 98.4 F 06/24/21 07:00 Pulse 53 L 06/24/21 08:35 Resp 14 06/24/21 08:35 BP 125/58 06/24/21 07:00 Pulse Ox 95 06/24/21 07:00 Intake & Output 06/23/21 06/24/21 06/24/21 18:59 06:59 18:59 Other: Voiding Method Bedside Commode Bedside Commode Bedside Commode # Voids 1 2 # Bowel Movements 1 - Labs CBC & Chem 7: 06/22/21 07:34 06/24/21 03:55 Labs: Abnormal Lab Results - Last 24 Hours (Table) 06/23/21 06/23/21 06/24/21 Range/Units 16:59 20:28 03:55 Anion Gap 7.70 L (10.00-18.00) mmol/L BUN/Creatinine Ratio 22.27 H (12.00-20.00) Ratio Glucose 152 H (70-110) mg/dL POC Glucose (mg/dL) 168 H 181 H (75-99) mg/dL 06/24/21 06/24/21 Range/Units 07:16 11:50 Anion Gap (10.00-18.00) mmol/L BUN/Creatinine Ratio (12.00-20.00) Ratio Glucose (70-110) mg/dL POC Glucose (mg/dL) 121 H 130 H (75-99) mg/dL Microbiology - Last 24 Hours (Table) 06/20/21 20:30 Blood Culture - Preliminary Blood No Growth after 72 hours 06/20/21 20:45 Blood Culture - Preliminary Blood No Growth after 72 hours 06/23/21 03:20 Urine Culture - Preliminary Urine,Voided Assessment and Plan Time with Patient: Less than 30
[2021-06-24 16:55] LABS: Glucose,Whole Blood 196 mg/dL (75-99)
[2021-06-24 21:04] LABS: Glucose,Whole Blood 108 mg/dL (75-99)
[2021-06-24] MEDS: TOPIRAMATE 25 MG TAB PO SCH (21:19)
[2021-06-24] MEDS: PRIMIDONE 250 MG TAB PO SCH (21:19)
[2021-06-24] MEDS: IOPAMIDOL CONTRAST (ORAL USE) VIAL PO PRN ×2 (22:41→23:41)
--- NOTE | 2021-06-24 23:20 | P.PN ---
Subjective Progress Note Date: 06/24/21 Principal diagnosis: Right foot infection Patient is a 71-year-old female who is status post bursectomy wound on the plantar aspect of the left metatarsal head and the patient also have a excisional of the left fifth metatarsal head with a postop complication of cellulitis and culture now showing MRSA. On today's evaluation that is 06/24/2021, the patient denies any fever or any chills, the patient pain to the right foot area is currently controlled, the patient denies chest pain shortness of breath or cough no abdominal pain and no diarrhea Objective - Vital Signs Vital signs: Vital Signs Temp 98.4 F 06/24/21 07:00 Pulse 53 L 06/24/21 08:35 Resp 14 06/24/21 08:35 BP 125/58 06/24/21 07:00 Pulse Ox 95 06/24/21 07:00 Intake & Output 06/23/21 06/24/21 06/24/21 18:59 06:59 18:59 Other: Voiding Method Bedside Commode Bedside Commode Bedside Commode # Voids 1 2 # Bowel Movements 1 - Exam GENERAL DESCRIPTION: An elderly female lying in bed in no distress RESPIRATORY SYSTEM: Unlabored breathing , decreased breath sounds at bases HEART: S1 S2 regular rate and rhythm , ABDOMEN: Soft , no tenderness EXTREMITIES: Right foot is currently dressed up no drainage on the dressing - Labs CBC & Chem 7: 06/22/21 07:34 06/24/21 03:55 Labs: Abnormal Lab Results - Last 24 Hours (Table) 06/23/21 06/23/21 06/24/21 Range/Units 16:59 20:28 03:55 Anion Gap 7.70 L (10.00-18.00) mmol/L BUN/Creatinine Ratio 22.27 H (12.00-20.00) Ratio Glucose 152 H (70-110) mg/dL POC Glucose (mg/dL) 168 H 181 H (75-99) mg/dL 06/24/21 06/24/21 Range/Units 07:16 11:50 Anion Gap (10.00-18.00) mmol/L BUN/Creatinine Ratio (12.00-20.00) Ratio Glucose (70-110) mg/dL POC Glucose (mg/dL) 121 H 130 H (75-99) mg/dL Microbiology - Last 24 Hours (Table) 06/20/21 20:30 Blood Culture - Preliminary Blood No Growth after 72 hours 06/20/21 20:45 Blood Culture - Preliminary Blood No Growth after 72 hours 06/23/21 03:20 Urine Culture - Preliminary Urine,Voided Assessment and Plan (1) Cellulitis of right foot Current Visit: Yes Status: Acute Code(s): L03.115 - CELLULITIS OF RIGHT LOWER LIMB SNOMED Code(s): 453054658 Plan: 1patient with right foot surgical site infection in this patient who recently did have a right fifth metatarsal partial resection and the patient also have a history of MRSA infection in the recent past and cultures done this admission has been finalized as MRSA, blood culture negative so for 2- patient currently being treated with vancomycin pharmacy to dose target trough of 15 while watching kidney function and vancomycin trough closely. 3patient will need PICC line for outpatient IV vancomycin therapy 2-3 weeks depending upon clinical response, discussed with the nurse practitioner for admitting team Time with Patient: Less than 30
[2021-06-25] MEDS: HYDROcodone/APAP 5-325MG 1 EACH TAB PO PRN ×3 (00:27→15:07)
[2021-06-25] MEDS: MELATONIN 5 MG TABLET PO PRN (00:27)
--- NOTE | 2021-06-25 00:48 | CT ---
EXAMINATION TYPE: CT abdomen pelvis w con DATE OF EXAM: 06/25/2021 COMPARISON: December 05, 2020 HISTORY: RLQ pain CT DLP: 1836.9 mGycm Automated exposure control for dose reduction was used. CONTRAST: Performed with IV Contrast, patient injected with 100 mL of Isovue 300. There is minimal subsegmental atelectasis at the lung bases. Heart size is normal. There is no perica rdial effusion. Liver spleen and stomach pancreas appear intact. The bile ducts are not dilated. Ther e are clips from cholecystectomy. There is also contrast in the stomach and proximal small bowel. No bowel obstruction. There is no adrenal mass. Kidneys show satisfactory contrast opacification. There is no hydronephrosi s. Delayed images show normal renal excretion. There is no retroperitoneal adenopathy. Bladder disten ds smoothly. There is metal artifact from bilateral hip prosthesis. No pelvic mass. There is no free fluid in the pelvis. There is no mesenteric edema. There is no ascites or free air. No bowel obstruction. There is a short appendix which appears normal. The lumbar vertebrae have normal alignment. There is degenerative disc space narrowing at L4-5 with s pur formation. No compression fracture. I see no focal bone destruction. IMPRESSION: No acute abnormality within the abdomen and pelvis. There is mild subsegmental atelectasis at the larry g bases. Overall no adverse change compared to old exam.
[2021-06-25] MEDS: [UNRECOGNIZED DRUG - OTHER] PO SCH (05:54)
[2021-06-25] MEDS: FAMOTIDINE 20 MG TAB PO SCH (05:54)
[2021-06-25 07:14] LABS: Glucose,Whole Blood 125 mg/dL (75-99)
[2021-06-25] MEDS: INSULIN ASPART (NovoLOG) 100 UNIT/ML VIAL SQ SCH ×2 (07:24→12:10)
[2021-06-25 08:36] VITALS: BP 128/78; PULSE 60; RESP 14; TEMP 98.3
[2021-06-25] MEDS: MAG HYDROX/AL HYDROX/SIMETH 30 ML CUP PO SCH (08:38)
[2021-06-25] MEDS: GABAPENTIN 300 MG CAP PO SCH (08:38)
[2021-06-25] MEDS: ASPIRIN 81 MG PO SCH (08:38)
[2021-06-25] MEDS: FLUTICASONE 110 MCG INHALER INHALATION SCH (08:53)
[2021-06-25] MEDS ORDERED: LIDOCAINE 1% INJ 10MG/ML (20 ML MDV) ONE (09:01)
[2021-06-25] MEDS ORDERED: LIDOCAINE 1% INJ 10MG/ML (20 ML MDV) SQ ONE (09:32)
--- NOTE | 2021-06-25 09:58 | IR ---
PICC LINE PLACEMENT: HISTORY: Infection requiring long-term antibiotic therapy PROCEDURE: Ultrasound and fluoroscopic guidance of PICC line placement. COMPLICATIONS: None ANESTHESIA: 1. 1% Lidocaine locally. FINDINGS/TECHNIQUE: The procedure was explained to the patient. The risks, complications, benefits and alternatives were discussed and any questions were answered. Informed consent was obtained. The patient was placed supine on the fluoroscopic table and prepped and draped in the usual sterile fash ion. Utilizing a 21 gauge needle and sonographic and fluoroscopic guidance, access in the left basi lic vein was achieved and there is placement of a 0.018 guidewire. The vein is patent. A 4-F sheath was placed over the guidewire. The guidewire and dilator were removed and a 4-F. PICC line was plac ed through the sheath with the tip at the level of the SVC. The sheath was removed, the catheter was flushed and sutured into position. The patient was stable throughout the procedure and remained sta ble upon discharge from the Department of Radiology. The vein puncture was patent under ultrasound. A rehman scale image was obtained to document patency of the vein punctured. All elements of the maximal barrier technique were utilized. FLUOROSCOPY TIME: 0.2 minutes and one image submitted IMPRESSION: Successful PICC line placement under ultrasound and fluoroscopic guidance.
[2021-06-25] MEDS ORDERED: VANCOMYCIN TROUGH DUE 1 EACH MISC MISCELLANE ONE (10:00)
[2021-06-25 11:05] LABS: African American GFR (CKD) >90 (>60 ml/min/1.73 sqM); Anion Gap 11 mmol/L; Blood Urea Nitrogen 13 mg/dL (7-17); Carbon Dioxide 24 mmol/L (22-30); Chloride 100 mmol/L (98-107); Glucose 213 mg/dL (74-99); Non-African American GFR(CKD) 79 (>60 ml/min/1.73 sqM); Potassium 4.4 mmol/L (3.5-5.1); Sodium 135 mmol/L (137-145)
[2021-06-25] MEDS: VANCOMYCIN 1,500 MG in SODIUM CHLORIDE 0.9% 250 ML IVPB SCH (11:11)
--- NOTE | 2021-06-25 11:17 | P.CRDCN ---
History of Present Illness History of present illness: This is a 71 year old female with a past medical history of hypertension, dyslipidemia, type 2 diabetes and history of DVT. She follows in the office with Dr. Molina. We are being consulted for chest pain. Patient presents to the emergency department 06/20/2021 with right foot infection. She had an abscess removed from her right foot and was diagnosed with MRSA. She has been treated w ith IV antibiotics. xray was concerning for osteomyelitis. Wound cultures finalized to MRSA. Evaluated by Ortho with no surgical intervention at this time. In terms of her chest pain it is located midsternal, it is intermittent, comes and goes. Describes it as "fluttering" feeling. It is non-radiating, non- exertional. Sometimes she feels short of breath. No specific alleviating or aggravating factors. Patient does not have a history of CAD, TX, Stroke. Plan for patient to undergo PICC placement today for IV antibiotics. DIAGNOSTICS EKG reveals sinus rhythm, heart rate 67, T wave inversion in lead III and V2-V3. no acute ST-T wave abnormalities Chest xray negative for an acute cardiopulmonary process. Laboratory reviewed, troponin negative, sodium 135, potassium 4.4, BUN 16, serum creatinine 0.7 Current cardiac medications include lisinopril 2.5 mg daily, aspirin 81 mg daily, Eliquis 2.5 mg twice a day 04/2021 Echocardiogram revealed EF >55%, mild mitral regurgitation, mild tricuspid regurgitation. Patient underwent cardiac catheterization recently on 09/27/2020 which revealed normal coronary arteries REVIEW OF SYSTEMS At the time of my exam: CONSTITUTIONAL: Denies fever or chills. CARDIOVASCULAR: + chest discomfort. No shortness of breath, orthopnea, PND or palpitations. RESPIRATORY: Denies cough. GASTROINTESTINAL: Denies abdominal pain, diarrhea, constipation, nausea or vomiting. MUSCULOSKELETAL: Denies myalgias. NEUROLOGIC: Denies numbness, tingling, headacbe or weakness. ENDOCRINE: Denies fatigue, weight change, polydipsia or polyurina. GENITOURINARY: Denies burning, hematuria or urgency with micturation. HEMATOLOGIC: Denies history of anemia or bleeding. PHYSICAL EXAMINATION Blood pressure CONSTITUTIONAL: No apparent distress. HEENT: Head is normocephalic. Pupils are equal, round. Sclerae anicteric. Mucous membranes of the mouth are moist. No JVD. No carotid bruit. CHEST EXAMINATION: Lungs are clear to auscultation. No chest wall tenderness is noted on palpation or with deep breathing. HEART EXAMINATION: Regular rate and rhythm. S1, S2 heard. No murmurs, gallops or rub. ABDOMEN: Soft, nontender. Positive bowel sounds. EXTREMITIES: no lower extremity edema and no calf tenderness. Right foot covered in dressing NEUROLOGIC EXAMINATION: Patient is awake, alert and oriented x3. ASSESSMENT Intermittent chest discomfort, atypical, acute coronary syndrome has ruled out, chest pain has resolved. Cardiac cath 09/2020 with normal coronary arteries, recent Echocardiogram revealed EF >55% Osteomyelitis of right foot History of Hypertension Dyslipidemia History of DVT Type 2 Diabetes PLAN From a cardiology perspective, no further workup for chest pain as an inpatient. Recommend follow up with Dr. Molina in the office Thank you kindly for this consultation. Nurse Practitioner note has been reviewed, I agree with a documented findings and plan of care. Patient was seen and examined. Past Medical History Past Medical History: Asthma, COPD, Diabetes Mellitus, Deep Vein Thrombosis (DVT), Eye Disorder, GERD/Reflux, Hypertension, Osteoarthritis (OA), Pneumonia, Skin Disorder, Thyroid Disorder Additional Past Medical History / Comment(s): MRSA infection rt foot 5th digit and side of rt foot, Hx GLAUCOMA, TMJ, RENAL CALCULI, UTIs, DVT X 5 ( STATES CAUSED BY CONTROL PILLS AND HORMONES),KNIK, HAND TREMORS History of Any Multi-Drug Resistant Organisms: MRSA Date of last positivie culture/infection: 04/15/21 MDRO Source:: MRSA FOOT Past Surgical History: Back Surgery, Bladder Surgery, Breast Surgery, Heart Catheterization, Hysterectomy, Joint Replacement, Orthopedic Surgery, Tonsillectomy Additional Past Surgical History / Comment(s): 04/17/16 arthrotomy removal olecranon spur and loose bodies R elbow. , JULIANNE TOTAL HIP, LAPAROSCOPY, BREAST BIOPSY, JULIANNE CARPAL TUNNEL, JULIANNE KNEE REPLACEMENT, JULIANNE ROTATOR CUFF REPAIR, LEFT FOOT SURG, Right foot bursa removal, Past Anesthesia/Blood Transfusion Reactions: Postoperative Nausea & Vomiting (PONV) Past Psychological History: No Psychological Hx Reported Smoking Status: Never smoker Past Alcohol Use History: Rare Past Drug Use History: None Reported - Past Family History Mother Family Medical History: Hyperlipidemia, Hypertension Additional Family Medical History / Comment(s): Mother at age 96. Father Family Medical History: Osteoarthritis (OA) Sister(s) Family Medical History: Pulmonary Embolus Medications and Allergies Home Medications Medication Instructions Recorded Confirmed Type Levothyroxine Sodium [Synthroid] 150 mcg PO SUTUTHSA 10/02/13 06/20/21 History Levothyroxine Sodium [Synthroid] 175 mcg PO MOWEFR 10/02/13 06/20/21 History Nitroglycerin Sl Tabs [Nitrostat] 0.4 mg SL Q5M PRN 10/02/13 06/20/21 History Aspirin [Adult Low Dose Aspirin EC] 81 mg PO DAILY 09/29/19 06/20/21 History Zinc 50 mg PO DAILY 02/09/20 06/20/21 History Primidone [Mysoline] 250 mg PO HS 05/15/20 06/20/21 History Meclizine [Antivert] 12.5 mg PO HS 10/22/20 06/20/21 History Apixaban [Eliquis] 2.5 mg PO BID #0 04/29/21 06/20/21 Rx Acetaminophen-Codeine 300-30mg 1 tab PO Q6H PRN MDD 6 tabs 05/05/21 06/20/21 History [Tylenol w/codeine #3] Cyclobenzaprine [Flexeril] 10 mg PO Q12H PRN 05/05/21 06/20/21 History Famotidine [Pepcid] 20 mg PO BID@0600,2100 05/05/21 06/20/21 History Loperamide HCl [Imodium A-D] 2 mg PO BID 05/05/21 06/20/21 History Melatonin 10 mg PO HS PRN 05/05/21 06/20/21 History Multivitamins, Thera [Multivitamin 1 tab PO DAILY 05/05/21 06/20/21 History (formulary)] Ondansetron [Zofran] 4 mg PO Q6H PRN 05/05/21 06/20/21 History Acetaminophen Tab [Tylenol] 325 mg PO Q6HR PRN 06/10/21 06/20/21 History Cholecalciferol [Vitamin D3 (25 25 mcg PO DAILY 06/10/21 06/20/21 History Mcg = 1000 Iu)] Cranberry Fruit Concentrate [Azo 250 mg PO BID 06/10/21 06/20/21 History Cranberry] Dicyclomine HCl 10 mg PO Q6H PRN 06/10/21 06/20/21 History Fluticasone Propionate [Flovent 1 puff INHALATION RT-BID 06/10/21 06/20/21 History Hfa 110 mcg] Gabapentin [Neurontin] 300 mg PO BID 06/10/21 06/20/21 History Insulin Aspart [NovoLOG Flexpen] See Protocol SQ AC-BID PRN 06/10/21 06/20/21 History Metoclopramide [Reglan] 10 mg PO DAILY PRN 06/10/21 06/20/21 History Topiramate [Topamax] 25 mg PO HS 06/10/21 06/20/21 History Allergies Allergy/AdvReac Type Severity Reaction Status Date / Time enoxaparin sodium Allergy Unknown RED LUMPS Verified 06/20/21 20:40 [From Lovenox] ON ABDOMEN AT INJECTION SITES erythromycin base Allergy Unknown Rash/Hives Verified 06/20/21 20:40 latex Allergy Unknown Itching Verified 06/20/21 20:40 adhesive Allergy Rash/Hives Verified 06/20/21 20:40 morphine Allergy Rash/Hives Verified 06/20/21 20:40 pioglitazone [From Actos] Allergy Swelling Verified 06/20/21 20:40 Sulfa (Sulfonamide Allergy Anaphylaxis Verified 06/20/21 20:40 Antibiotics) tetracycline [Tetracycline] Allergy Rash/Hives Verified 06/20/21 20:40 metformin AdvReac Diarrhea Verified 06/20/21 20:40 Physical Exam Vitals: Vital Signs Temp Pulse Resp BP Pulse Ox 06/24/21 08:35 53 L 14 06/24/21 07:00 98.4 F 53 L 14 125/58 95 06/24/21 01:44 97.6 F 66 16 135/77 96 06/23/21 19:18 97.8 F 64 15 145/76 94 L 06/23/21 14:17 98.1 F 72 16 126/69 95 Intake and Output 06/23/21 06/24/21 06/24/21 22:59 06:59 14:59 Other: Voiding Method Bedside Commode Bedside Commode # Voids 2 2 # Bowel Movements 1 Results 06/22/21 07:34 06/25/21 10:01 Cardiac Enzymes 06/23/21 Range/Units 18:19 Troponin I <0.012 (0.000-0.034) ng/mL Comprehensive Metabolic Panel 06/24/21 Range/Units 03:55 Sodium 135 (135-145) mmol/L Potassium 4.5 (3.5-5.5) mmol/L Chloride 102 (96-109) mmol/L Carbon Dioxide 24.4 (20.0-27.5) mmol/L BUN 14.3 (9.0-27.0) mg/dL Creatinine 0.6 (0.6-1.5) mg/dL Glucose 152 H (70-110) mg/dL Calcium 8.9 (8.7-10.3) mg/dL Current Medications Generic Name Dose Route Start Last Admin Trade Name Freq PRN Reason Stop Dose Admin Hydrocodone Bitart/Acetaminophen 1 each 06/20/21 23:59 06/24/21 12:39 Hydrocodone/Apap 5-325mg 1 Each Tab PO 1 each Q4HR PRN Administration Moderate Pain Al Hydroxide/Mg Hydroxide 20 ml 06/23/21 22:00 06/24/21 12:36 Mag Hydrox/Al Hydrox/Simeth 30 Ml Cup PO Not Given QID RIVER Apixaban 2.5 mg 06/21/21 09:00 06/24/21 09:36 Apixaban 2.5 Mg Tablet PO 2.5 mg BID RIVER Administration Protocol Aspirin 81 mg 06/21/21 09:00 06/24/21 09:36 Aspirin 81 Mg PO 81 mg DAILY RIVER Administration Famotidine 20 mg 06/21/21 06:00 06/24/21 05:38 Famotidine 20 Mg Tab PO 20 mg BID@0600,2100 RIVER Administration Fluticasone Propionate 1 puff 06/21/21 08:00 06/24/21 07:27 Fluticasone 110 Mcg Inhaler INHALATION Not Given RT-BID RIVER Gabapentin 300 mg 06/21/21 09:00 06/24/21 09:36 Gabapentin 300 Mg Cap PO 300 mg BID RIVER Administration Vancomycin HCl 1,500 mg/ 250 mls @ 125 mls/hr 06/23/21 23:00 06/24/21 12:39 Sodium Chloride IVPB 125 mls/hr Q12H RIVER Administration Insulin Aspart 0 unit 06/22/21 12:30 06/24/21 12:36 Insulin Aspart (Novolog) 100 Unit/Ml Vial SQ Not Given ACHS [facility] Protocol Levothyroxine Sodium 150 mcg 06/21/21 06:30 06/24/21 05:38 Levothyroxine 75 Mcg Tab PO 150 mcg [id number]@0630 RIVER Administration Levothyroxine Sodium 176 mcg 06/23/21 06:30 06/23/21 05:13 176 PO 176 mcg [id number]@0630 RIVER Administration Melatonin 10 mg 06/21/21 21:00 06/23/21 22:05 Melatonin 5 Mg Tablet PO 10 mg HS PRN Administration Insomnia Miscellaneous Information 0 each 06/25/21 10:00 Vancomycin Trough Due 1 Each Misc MISCELLANE 06/25/21 10:01 DIRECTED ONE Naloxone HCl 0.2 mg 06/20/21 23:59 Naloxone 0.4 Mg/Ml 1 Ml Vial IV Q2M PRN Opioid Reversal Ondansetron HCl 4 mg 06/22/21 07:00 06/24/21 00:10 Ondansetron 4 Mg/2 Ml Vial IVP 4 mg Q6HR PRN Administration Nausea And Vomiting Primidone 250 mg 06/21/21 21:00 06/23/21 20:31 Primidone 250 Mg Tab PO 250 mg HS RIVER Administration Topiramate 25 mg 06/21/21 21:00 06/23/21 20:32 Topiramate 25 Mg Tab PO 25 mg HS RIVER Administration Intake and Output 06/23/21 06/24/21 06/24/21 22:59 06:59 14:59 Other: Voiding Method Bedside Commode Bedside Commode # Voids 2 2 # Bowel Movements 1 06/22/21 07:34 06/24/21 03:55
[2021-06-25 11:57] LABS: Glucose,Whole Blood 207 mg/dL (75-99)
[2021-06-25] MEDS ORDERED: CIPROFLOXACIN HCL 500 MG TAB PO SCH (12:00)
--- NOTE | 2021-06-25 12:10 | P.DS ---
Providers Date of admission: 06/21/21 08:16 Attending physician: Serene Cui Consults: 06/21/21 00:00 Consult Physician Routine Consulting Provider: Mickey Tran Consult Reason/Comments: Right foot wound infection Do you want consulting provider notified?: Yes, Notify in am 06/21/21 00:01 Consult Physician Routine Consulting Provider: Kenyon Fine Consult Reason/Comments: Right foot wound infection; h/o MRSA Do you want consulting provider notified?: Yes, Notify in am 06/24/21 13:45 Consult Physician Routine Consulting Provider: Dsutin eBatty Consult Reason/Comments: intermittent midsternal squeezing chest pain Do you want consulting provider notified?: Yes Primary care physician: Josy Man Hospital Course: Final Diagnosis Osteomyelitis of right foot/ right foot cellulitis on vancomycin Chest pain, atypical, ACS has been ruled out with recent cardiac work up as well in Urinary tract infection with klebsiella pneumoniae, symptomatic, discharge on antibiotics RLQ abdominal pain with negative abd/pelvis CT no complaints of pain today Hypothyroidism Hypertension not currently on medication, normotensive today Asthma/COPD, not in acute exacerbation Diabetes mellitus type II with hyperglycemia History of DVT Discharge Disposition Patient stable for discharge today on IV antibiotics. Cardiology work up negative. Cleared medically Hospital Course 71-year-old female presents to the emergency department via EMS for evaluation of right foot infection. Patient states she recently had surgery due to an abscess and was told it was MSRA. States she has been seen by infectious disease and has been on antibiotics previously, though is uncertain of what she has taken. Patient complains of increased redness, swelling, and pain. Has had drainage from incision site with blistering as well. States she has been taking her Tylenol 3 with no improvement. Reports taking her anticoagulant as prescribed. Denies fever, chills, headache, chest pain, shortness of breath, difficulty breathing, abdominal pain, nausea, vomiting, diarrhea, or dysuria. Patient was admitted to the hospital with consults placed to infectious disease and surgical group. Patient underwent excision of bursa right foot and partial fifth metatarsal head resection right foot by Dr Tran on 06/11/2021. Patient follows with Dr Dasha Moreno in the primary care setting, chronic conditions include hypothyroidism, hypertension, asthma/COPD, DM type 2, history of DVT on eliquis. Foot xray on admission shows possible osteomyelitis with deformity. Sodium 135, CO2 32, WBC 5.3, platelet 263, glucose 125, CRP 6.4. Troponin negative. Urinalysis on the 06/23/21 questionable for infection, urine culture positive for klebsiella pneumoniae with resistance. Wound culture positive for MRSA. IV antibiotics on discharge with recommendations from infectious disease. Additional diagnostics include chest xray: No acute cardiopulmonary disease Abdominal pelvis CT shows no acute abnormality within the abdomen and pelvis is mild subsegmental atelectasis at the lung bases. No change compared to old exam. Patient was also seen in consult by cardiology for complaints of intermittent substernal squeezing chest pain with spontaneous resolution. EKG was nondiagnostic and troponin negative. It was described paper colorer fluttering with occasional shortness of breath. Patient had a heart cath in September 2020 which was normal coronary arteries, recent echo revealed EF greater than 55%. Follow-up with Dr. Molina in the office. 06/25/2021 Patient evaluated today sitting up in chair. No acute complaints today, underwent PICC line placement this morning. Can resume eliquis for tonight dose on discharge. Cleared medically to go to rehab today. IV antibiotics per infectious disease; IV vanco and oral cipro which will cover for urine culture. Patient had an episode of RLQ abdominal pain last night with negative imaging and no complaints today. Cardiology work up shows atypical chest pain which sponatenously resolved and no further work up in patient. Discharge on current home medications and norco for pain management. Patient currently denies chest pain, chest pressure, cough, shortness of breath. Pain is controlled with norco. PICC line in place. Most recent labs show sodium 135, potassium 4.5, BUN 14, creatinine 0.6, blood glucose 100. Afebrile, blood pressure 128/78. Lungs are clear, S1 S2 auscultated, abdomen is soft and nontender. Focal neurological exam is negative. Please see medication reconciliation for a list of current medications. Thank you for allowing us to participate in the care of this patient. The impression and plan of care has been dictated by Hodan Dominguez, Nurse Practitioner as directed. Dr. Ramana MD I have performed a history and physical examination and medical decision making of this patient, discussed the same with the dictator, and agree with the dictators assessment and plan as written, documented as a scribe. Based on total visit time, I have performed more than 50% of this visit. Patient Condition at Discharge: Fair Plan - Discharge Summary Discharge Rx Participant: Yes New Discharge Prescriptions: New Mag Hydrox/Al Hydrox/Simeth [Maalox] 20 ml PO QID ml Gabapentin [Neurontin] 300 mg PO BID #2 cap HYDROcodone/APAP 5-325MG [Ninole 5-325] 1 each PO Q6HR PRN #4 tab PRN Reason: Moderate Pain INSULIN ASPART (NovoLOG) [NovoLOG (formulary)] 0 unit SQ ACHS ml Continue Levothyroxine Sodium [Synthroid] 150 mcg PO SUTUTHSA Levothyroxine Sodium [Synthroid] 175 mcg PO MOWEFR Nitroglycerin Sl Tabs [Nitrostat] 0.4 mg SL Q5M PRN PRN Reason: Chest Pain Aspirin [Adult Low Dose Aspirin EC] 81 mg PO DAILY Zinc 50 mg PO DAILY Primidone [Mysoline] 250 mg PO HS Meclizine [Antivert] 12.5 mg PO HS Famotidine [Pepcid] 20 mg PO BID@0600,2100 Loperamide HCl [Imodium A-D] 2 mg PO BID Dicyclomine HCl 10 mg PO Q6H PRN PRN Reason: Pain Fluticasone Propionate [Flovent Hfa 110 mcg] 1 puff INHALATION RT-BID Apixaban [Eliquis] 2.5 mg PO BID #0 Cyclobenzaprine [Flexeril] 10 mg PO Q12H PRN PRN Reason: Muscle Spasm Acetaminophen-Codeine 300-30mg [Tylenol w/codeine #3] 1 tab PO Q6H PRN MDD 6 tabs PRN Reason: Pain Ondansetron [Zofran] 4 mg PO Q6H PRN PRN Reason: Nausea Melatonin 10 mg PO HS PRN PRN Reason: Insomnia Multivitamins, Thera [Multivitamin (formulary)] 1 tab PO DAILY Cholecalciferol [Vitamin D3 (25 Mcg = 1000 Iu)] 25 mcg PO DAILY Cranberry Fruit Concentrate [Azo Cranberry] 250 mg PO BID Metoclopramide [Reglan] 10 mg PO DAILY PRN PRN Reason: Nausea Gabapentin [Neurontin] 300 mg PO BID Acetaminophen Tab [Tylenol] 325 mg PO Q6HR PRN PRN Reason: Fever And/ Or Pain Topiramate [Topamax] 25 mg PO HS Discontinued Insulin Aspart [NovoLOG Flexpen] See Protocol SQ AC-BID PRN PRN Reason: Blood Sugar - High Discharge Medication List Levothyroxine Sodium [Synthroid] 150 mcg PO SUTUTHSA 10/02/13 [History] Levothyroxine Sodium [Synthroid] 175 mcg PO MOWEFR 10/02/13 [History] Nitroglycerin Sl Tabs [Nitrostat] 0.4 mg SL Q5M PRN 10/02/13 [History] Aspirin [Adult Low Dose Aspirin EC] 81 mg PO DAILY 09/29/19 [History] Zinc 50 mg PO DAILY 02/09/20 [History] Primidone [Mysoline] 250 mg PO HS 05/15/20 [History] Meclizine [Antivert] 12.5 mg PO HS 10/22/20 [History] Apixaban [Eliquis] 2.5 mg PO BID #0 04/29/21 [Rx] Acetaminophen-Codeine 300-30mg [Tylenol w/codeine #3] 1 tab PO Q6H PRN MDD 6 tabs 05/05/21 [History] Cyclobenzaprine [Flexeril] 10 mg PO Q12H PRN 05/05/21 [History] Famotidine [Pepcid] 20 mg PO BID@0600,2100 05/05/21 [History] Loperamide HCl [Imodium A-D] 2 mg PO BID 05/05/21 [History] Melatonin 10 mg PO HS PRN 05/05/21 [History] Multivitamins, Thera [Multivitamin (formulary)] 1 tab PO DAILY 05/05/21 [History] Ondansetron [Zofran] 4 mg PO Q6H PRN 05/05/21 [History] Acetaminophen Tab [Tylenol] 325 mg PO Q6HR PRN 06/10/21 [History] Cholecalciferol [Vitamin D3 (25 Mcg = 1000 Iu)] 25 mcg PO DAILY 06/10/21 [History] Cranberry Fruit Concentrate [Azo Cranberry] 250 mg PO BID 06/10/21 [History] Dicyclomine HCl 10 mg PO Q6H PRN 06/10/21 [History] Fluticasone Propionate [Flovent Hfa 110 mcg] 1 puff INHALATION RT-BID 06/10/21 [History] Gabapentin [Neurontin] 300 mg PO BID 06/10/21 [History] Metoclopramide [Reglan] 10 mg PO DAILY PRN 06/10/21 [History] Topiramate [Topamax] 25 mg PO HS 06/10/21 [History] Gabapentin [Neurontin] 300 mg PO BID #2 cap 06/25/21 [Rx] HYDROcodone/APAP 5-325MG [Ninole 5-325] 1 each PO Q6HR PRN #4 tab 06/25/21 [Rx] INSULIN ASPART (NovoLOG) [NovoLOG (formulary)] 0 unit SQ ACHS ml 06/25/21 [Rx] Mag Hydrox/Al Hydrox/Simeth [Maalox] 20 ml PO QID ml 06/25/21 [Rx] Follow up Appointment(s)/Referral(s): Josy Man MD [Primary Care Provider] - 1-2 days Duran Molina MD [STAFF PHYSICIAN] - 1 Week Ambulatory/Diagnostic Orders: Basic Metabolic Panel [LAB.AMB] Time Frame: 2 Days, Location: None Selected
[2021-06-26] MEDS ORDERED: VANCOMYCIN 1,250 MG in SODIUM CHLORIDE 0.9% 250 ML IVPB SCH ×2
--- NOTE | 2021-06-27 11:04 | CDI ---
Documentation Clarification Form Date: 06/27/21 From: Perlita Gorman Admit Date: 06/21/2021 08:16:00 AM Patient Name: Kristen Frost Visit Number: [id number] Discharge Date: 06/25/2021 03:41:00 PM ATTENTION: The Clinical Documentation Specialists (CDI) and [facility] Coding Staff appreciate your assistance in clarifying documentation. Please respond to the clarification below the line at the bottom and electronically sign. The CDI & [facility] Coding staff will review the response and follow-up if needed. Please note: Queries are made part of the Legal Health Record. If you have any questions, please contact the author of this message via ITS. Dr. Wilfredo Boles, Osteomyelitis is documented in the H&P, PNs and DS. Additional clarification regarding the cause and acuity of the osteomyelitis is requested. History/Risk Factors: Type II DM, UTI, COPD, hypothyroidism, GERD, glaucoma, HTN, OA Clinical Indicators: She had an abscess remove from her foot, now with cellulitis, her art specialist recommended going to ER fro evaluation. Admitted due to osteomyelitis of right foot. Labs: ESR 30, CRP 6.4 X-Ray Results: Fifth metatarsal deformity could relate to surgery. Osteomyelitis is possible. Treatment: IV antibiotics Please clarify the acuity of the osteomyelitis, if known: Acuity: [ x ] Acute osteomyelitis of right foot [ ] Chronic osteomyelitis of right foot [ ] Subacute osteomyelitis of right foot [ ] Unable to Determine MTDD
--- NOTE | 2021-07-02 23:59 | P.PN ---
Subjective Progress Note Date: 06/25/21 Principal diagnosis: Right foot infection Patient is a 71-year-old female who is status post bursectomy wound on the plantar aspect of the left metatarsal head and the patient also have a excisional of the left fifth metatarsal head with a postop complication of cellulitis and culture now showing MRSA. On today's evaluation that is 06/25/2021, the patient remains to be afebrile, the patient pain to the right foot area has decreased in intensity, the patient denies chest pain shortness of breath or cough no abdominal pain and no diarrhea with antibiotic therapy Objective - Vital Signs Vital signs: Vital Signs Temp 98.3 F 06/25/21 07:00 Pulse 60 06/25/21 07:00 Resp 14 06/25/21 08:38 BP 128/78 06/25/21 07:00 Pulse Ox 100 06/25/21 07:00 Intake & Output 06/24/21 06/25/21 06/25/21 18:59 06:59 18:59 Intake Total 750 Balance 750 Intake: Intake, IV Titration 250 Amount Vancomycin 1,500 mg In 250 Sodium Chloride 0.9% 250 ml @ 125 mls/hr IVPB Q12H [facility] Rx#:[id number] Oral 500 Other: Voiding Method Bedside Commode Bedside Commode Bedside Commode # Voids 4 2 # Bowel Movements 1 - Exam GENERAL DESCRIPTION: An elderly female lying in bed in no distress RESPIRATORY SYSTEM: Unlabored breathing , decreased breath sounds at bases HEART: S1 S2 regular rate and rhythm , ABDOMEN: Soft , no tenderness EXTREMITIES: Right foot is currently dressed up no drainage on the dressing - Labs CBC & Chem 7: 06/22/21 07:34 06/25/21 10:01 Labs: Abnormal Lab Results - Last 24 Hours (Table) 06/24/21 06/24/21 06/25/21 Range/Units 16:54 21:02 07:12 Sodium (137-145) mmol/L Glucose (74-99) mg/dL POC Glucose (mg/dL) 196 H 108 H 125 H (75-99) mg/dL 06/25/21 06/25/21 Range/Units 10:01 11:55 Sodium 135 L (137-145) mmol/L Glucose 213 H (74-99) mg/dL POC Glucose (mg/dL) 207 H (75-99) mg/dL Microbiology - Last 24 Hours (Table) 06/23/21 03:20 Urine Culture - Final Urine,Voided Klebsiella pneumoniae 06/20/21 20:45 Blood Culture - Preliminary Blood No Growth after 96 hours 06/20/21 20:30 Blood Culture - Preliminary Blood No Growth after 96 hours Assessment and Plan (1) Cellulitis of right foot Status: Acute Code(s): L03.115 - CELLULITIS OF RIGHT LOWER LIMB SNOMED Code(s): 952002292 Plan: 1patient with right foot surgical site infection in this patient who recently did have a right fifth metatarsal partial resection and the patient also have a history of MRSA infection in the recent past and cultures done this admission has been finalized as MRSA, blood culture negative so for 2- patient seemed to have clinical improvement with vancomycin pharmacy to dose which will be continued in the outpatient for 2-3 weeks depending upon clinical response, and a close outpatient follow-up Time with Patient: Less than 30
== END 2021-06-25 15:41 | DRG 638 ==
LOC: EC 17:34 → 6NMEDSUR 06-21 01:43 → 4SSUR 06-21 08:06 → OBSVTOIN 06-21 08:16 → 4SSUR 06-21 13:54
PROVIDERS: ADMIT Hospitalist; ATTEND Hospitalist
PROC: 02HV33Z Insertion of Infusion Device into Superior Vena Cava, Percutaneous Approach (ICD-10-PCS; principal; 2021-06-25 11:00)
DX: E11.69 Type 2 diabetes mellitus with other specified complication (principal); L03.115 Cellulitis of right lower limb; N39.0 Urinary tract infection, site not specified; M86.171 Other acute osteomyelitis, right ankle and foot; E11.65 Type 2 diabetes mellitus with hyperglycemia; B95.62 Methicillin resistant Staphylococcus aureus infection as the cause of diseases classified elsewhere; B96.1 Klebsiella pneumoniae [K. pneumoniae] as the cause of diseases classified elsewhere; E03.9 Hypothyroidism, unspecified; J44.9 Chronic obstructive pulmonary disease, unspecified; Z79.4 Long term (current) use of insulin; E78.5 Hyperlipidemia, unspecified; I08.3 Combined rheumatic disorders of mitral, aortic and tricuspid valves; K21.9 Gastro-esophageal reflux disease without esophagitis; H40.9 Unspecified glaucoma; R25.1 Tremor, unspecified; M26.609 Unspecified temporomandibular joint disorder, unspecified side; I10 Essential (primary) hypertension; R07.89 Other chest pain; M19.90 Unspecified osteoarthritis, unspecified site; Z79.82 Long term (current) use of aspirin; Z79.01 Long term (current) use of anticoagulants; Z79.890 Hormone replacement therapy; Z79.51 Long term (current) use of inhaled steroids; Z79.899 Other long term (current) drug therapy; Z87.01 Personal history of pneumonia (recurrent); Z86.718 Personal history of other venous thrombosis and embolism; Z86.14 Personal history of Methicillin resistant Staphylococcus aureus infection; Z87.442 Personal history of urinary calculi; Z90.710 Acquired absence of both cervix and uterus; Z90.89 Acquired absence of other organs; Z87.42 Personal history of other diseases of the female genital tract; Z96.653 Presence of artificial knee joint, bilateral; Z96.643 Presence of artificial hip joint, bilateral; Z87.39 Personal history of other diseases of the musculoskeletal system and connective tissue; Z87.2 Personal history of diseases of the skin and subcutaneous tissue; Z98.890 Other specified postprocedural states; Z91.040 Latex allergy status; Z88.1 Allergy status to other antibiotic agents; Z88.5 Allergy status to narcotic agent; Z88.2 Allergy status to sulfonamides; Z88.8 Allergy status to other drugs, medicaments and biological substances; Z91.048 Other nonmedicinal substance allergy status; Z82.49 Family history of ischemic heart disease and other diseases of the circulatory system; Z83.49 Family history of other endocrine, nutritional and metabolic diseases; Z82.61 Family history of arthritis; Z83.2 Family history of diseases of the blood and blood-forming organs and certain disorders involving the immune mechanism
CPT/HCPCS: 36415; 36573; 71045; 74177; 80048; 80053; 80202; 81001; 83605; 84484; 85025; 85652; 86140; 87040; 87070; 87077; 87086; 87186; 87205; 93005; 94640; 96365; 96366; 96375; 99285

== ENCOUNTER 2021-07-27 15:47 | Emergency (ER) | payer MEDICARE, OTHER ==
[2021-07-27 16:00] VITALS: BP 113/64; PULSE 57; RESP 20; TEMP 98
--- NOTE | 2021-07-27 16:30 | ED ---
General Adult HPI - General Chief complaint: Upper Respiratory Infection Stated complaint: chest pain Time Seen by Provider: 07/27/21 16:04 Source: patient, RN notes reviewed, old records reviewed Mode of arrival: EMS - History of Present Illness Initial comments: 71-year-old female presents for evaluation of chest pain. Patient was transported by paramedics from the senior living after having an episode of central chest pain which was resolved with oxygen through nasal cannula. Patient denies dyspnea. She states she had some nausea without vomiting. No diaphoresis. She has had several episodes similar to this in the past. - Related Data Home Medications Medication Instructions Recorded Confirmed Levothyroxine Sodium [Synthroid] 150 mcg PO SUTUTHSA 10/02/13 06/20/21 Levothyroxine Sodium [Synthroid] 175 mcg PO MOWEFR 10/02/13 06/20/21 Nitroglycerin Sl Tabs [Nitrostat] 0.4 mg SL Q5M PRN 10/02/13 06/20/21 Aspirin [Adult Low Dose Aspirin EC] 81 mg PO DAILY 09/29/19 06/20/21 Zinc 50 mg PO DAILY 02/09/20 06/20/21 Primidone [Mysoline] 250 mg PO HS 05/15/20 06/20/21 Meclizine [Antivert] 12.5 mg PO HS 10/22/20 06/20/21 Acetaminophen-Codeine 300-30mg 1 tab PO Q6H PRN MDD 6 tabs 05/05/21 06/20/21 [Tylenol w/codeine #3] Cyclobenzaprine [Flexeril] 10 mg PO Q12H PRN 05/05/21 06/20/21 Famotidine [Pepcid] 20 mg PO BID@0600,2100 05/05/21 06/20/21 Loperamide HCl [Imodium A-D] 2 mg PO BID 05/05/21 06/20/21 Melatonin 10 mg PO HS PRN 05/05/21 06/20/21 Multivitamins, Thera [Multivitamin 1 tab PO DAILY 05/05/21 06/20/21 (formulary)] Ondansetron [Zofran] 4 mg PO Q6H PRN 05/05/21 06/20/21 Acetaminophen Tab [Tylenol] 325 mg PO Q6HR PRN 06/10/21 06/20/21 Cholecalciferol [Vitamin D3 (25 25 mcg PO DAILY 06/10/21 06/20/21 Mcg = 1000 Iu)] Cranberry Fruit Concentrate [Azo 250 mg PO BID 06/10/21 06/20/21 Cranberry] Dicyclomine HCl 10 mg PO Q6H PRN 06/10/21 06/20/21 Fluticasone Propionate [Flovent 1 puff INHALATION RT-BID 06/10/21 06/20/21 Hfa 110 mcg] Gabapentin [Neurontin] 300 mg PO BID 06/10/21 06/20/21 Metoclopramide [Reglan] 10 mg PO DAILY PRN 06/10/21 06/20/21 Topiramate [Topamax] 25 mg PO HS 06/10/21 06/20/21 Previous Rx's Medication Instructions Recorded Apixaban [Eliquis] 2.5 mg PO BID #0 04/29/21 Ciprofloxacin HCl [Cipro] 500 mg PO BID 3 Days #6 tab 06/25/21 Gabapentin [Neurontin] 300 mg PO BID #2 cap 06/25/21 HYDROcodone/APAP 5-325MG [[place] 1 each PO Q6HR PRN #4 tab 06/25/21 5-325] INSULIN ASPART (NovoLOG) [NovoLOG 0 unit SQ ACHS ml 06/25/21 (formulary)] Mag Hydrox/Al Hydrox/Simeth 20 ml PO QID ml 06/25/21 [Maalox] Allergies Allergy/AdvReac Type Severity Reaction Status Date / Time enoxaparin sodium Allergy Unknown RED LUMPS Verified 06/20/21 20:40 [From Lovenox] ON ABDOMEN AT INJECTION SITES erythromycin base Allergy Unknown Rash/Hives Verified 06/20/21 20:40 latex Allergy Unknown Itching Verified 06/20/21 20:40 adhesive Allergy Rash/Hives Verified 06/20/21 20:40 morphine Allergy Rash/Hives Verified 06/20/21 20:40 pioglitazone [From Actos] Allergy Swelling Verified 06/20/21 20:40 Sulfa (Sulfonamide Allergy Anaphylaxis Verified 06/20/21 20:40 Antibiotics) tetracycline [Tetracycline] Allergy Rash/Hives Verified 06/20/21 20:40 metformin AdvReac Diarrhea Verified 06/20/21 20:40 Review of Systems ROS Statement: Those systems with pertinent positive or pertinent negative responses have been documented in the HPI. ROS Other: All systems not noted in ROS Statement are negative. Past Medical History Past Medical History: Asthma, COPD, Diabetes Mellitus, Deep Vein Thrombosis (DVT), Eye Disorder, GERD/Reflux, Hypertension, Osteoarthritis (OA), Pneumonia, Skin Disorder, Thyroid Disorder Additional Past Medical History / Comment(s): MRSA infection rt foot 5th digit and side of rt foot, Hx GLAUCOMA, TMJ, RENAL CALCULI, UTIs, DVT X 5 ( STATES CAUSED BY CONTROL PILLS AND HORMONES),CADDO, HAND TREMORS History of Any Multi-Drug Resistant Organisms: MRSA Date of last positivie culture/infection: 06/20/21 MDRO Source:: MRSA FOOT Past Surgical History: Back Surgery, Bladder Surgery, Breast Surgery, Heart Catheterization, Hysterectomy, Joint Replacement, Orthopedic Surgery, Tonsillectomy Additional Past Surgical History / Comment(s): 04/17/16 arthrotomy removal olecranon spur and loose bodies R elbow. , JULIANNE TOTAL HIP, LAPAROSCOPY, BREAST BIOPSY, JULIANNE CARPAL TUNNEL, JULIANNE KNEE REPLACEMENT, JULIANNE ROTATOR CUFF REPAIR, LEFT FOOT SURG, Right foot bursa removal, Past Anesthesia/Blood Transfusion Reactions: Postoperative Nausea & Vomiting (PONV) Past Psychological History: No Psychological Hx Reported Smoking Status: Never smoker Past Alcohol Use History: Rare Past Drug Use History: None Reported - Past Family History Mother Family Medical History: Hyperlipidemia, Hypertension Additional Family Medical History / Comment(s): Mother at age 96. Father Family Medical History: Osteoarthritis (OA) Sister(s) Family Medical History: Pulmonary Embolus General Exam General appearance: alert, in no apparent distress Head exam: Present: atraumatic, normocephalic Eye exam: Present: normal appearance, PERRL ENT exam: Present: normal exam Neck exam: Present: normal inspection. Absent: tenderness, meningismus Respiratory exam: Present: normal lung sounds bilaterally. Absent: respiratory distress, wheezes Cardiovascular Exam: Present: regular rate, normal rhythm GI/Abdominal exam: Present: soft. Absent: distended, tenderness, guarding, rebound Extremities exam: Present: other (Right lower extremity: Dressing is clean dry and intact, normal cap refill, no calf tenderness.). Absent: calf tenderness Neurological exam: Present: alert, oriented X3, CN II-XII intact. Absent: motor sensory deficit Psychiatric exam: Present: normal affect, normal mood Skin exam: Present: warm, dry, intact. Absent: cyanosis, diaphoretic Course Vital Signs 07/27/21 15:56 Temperature 98.0 F Pulse Rate 57 L Respiratory 20 Rate Blood Pressure 113/64 O2 Sat by Pulse 96 Oximetry EKG Findings - EKG Comments: EKG Findings:: EKG: Sinus bradycardia, T-wave abnormality in the precordial leads, ventricular rate of 54, MT interval 191, QRS duration 90, QTC 414, no ST segment elevation. Medical Decision Making - Medical Decision Making 71-year-old female who presented for evaluation of chest pain which was resolved prior to my evaluation. Patient has stable vitals. EKG shows T-wave inversion however this is stable from prior. She had a heart cath performed in October 2020 which had no obstructive coronary artery disease. Her laboratory testing is unremarkable. Her chest x-ray is clear. I suspect this is not cardiac chest pain. She is currently anticoagulated with Eliquis. Pt is stable for discharge back to the senior living. - Lab Data Result diagrams: 07/27/21 15:58 07/27/21 15:58 Lab Results 07/27/21 07/27/21 07/27/21 Range/Units 15:58 15:58 15:58 WBC 4.1 (3.8-10.6) k/uL RBC 3.82 (3.80-5.40) m/uL Hgb 12.4 (11.4-16.0) gm/dL Hct 38.0 (34.0-46.0) % MCV 99.3 (80.0-100.0) fL MCH 32.4 (25.0-35.0) pg MCHC 32.6 (31.0-37.0) g/dL RDW 13.5 (11.5-15.5) % Plt Count 244 (150-450) k/uL MPV 6.6 Neutrophils % 50 % Lymphocytes % 33 % Monocytes % 6 % Eosinophils % 5 % Basophils % 1 % Neutrophils # 2.1 (1.3-7.7) k/uL Lymphocytes # 1.4 (1.0-4.8) k/uL Monocytes # 0.2 (0-1.0) k/uL Eosinophils # 0.2 (0-0.7) k/uL Basophils # 0.0 (0-0.2) k/uL PT 9.9 (9.0-12.0) sec INR 0.9 (<1.2) APTT 23.5 (22.0-30.0) sec Sodium 134 L (137-145) mmol/L Potassium 4.3 (3.5-5.1) mmol/L Chloride 101 (98-107) mmol/L Carbon Dioxide 29 (22-30) mmol/L Anion Gap 4 mmol/L BUN 18 H (7-17) mg/dL Creatinine 0.77 (0.52-1.04) mg/dL Est GFR (CKD-EPI)AfAm 89 (>60 ml/min/1.73 sqM) Est GFR (CKD-EPI)NonAf 77 (>60 ml/min/1.73 sqM) Glucose 190 H (74-99) mg/dL Calcium 8.4 (8.4-10.2) mg/dL Magnesium 2.0 (1.6-2.3) mg/dL Total Bilirubin 0.3 (0.2-1.3) mg/dL AST 33 (14-36) U/L ALT 34 (4-34) U/L Alkaline Phosphatase 114 (38-126) U/L Troponin I (0.000-0.034) ng/mL Total Protein 6.0 L (6.3-8.2) g/dL Albumin 3.4 L (3.5-5.0) g/dL 07/27/21 Range/Units 15:58 WBC (3.8-10.6) k/uL RBC (3.80-5.40) m/uL Hgb (11.4-16.0) gm/dL Hct (34.0-46.0) % MCV (80.0-100.0) fL MCH (25.0-35.0) pg MCHC (31.0-37.0) g/dL RDW (11.5-15.5) % Plt Count (150-450) k/uL MPV Neutrophils % % Lymphocytes % % Monocytes % % Eosinophils % % Basophils % % Neutrophils # (1.3-7.7) k/uL Lymphocytes # (1.0-4.8) k/uL Monocytes # (0-1.0) k/uL Eosinophils # (0-0.7) k/uL Basophils # (0-0.2) k/uL PT (9.0-12.0) sec INR (<1.2) APTT (22.0-30.0) sec Sodium (137-145) mmol/L Potassium (3.5-5.1) mmol/L Chloride (98-107) mmol/L Carbon Dioxide (22-30) mmol/L Anion Gap mmol/L BUN (7-17) mg/dL Creatinine (0.52-1.04) mg/dL Est GFR (CKD-EPI)AfAm (>60 ml/min/1.73 sqM) Est GFR (CKD-EPI)NonAf (>60 ml/min/1.73 sqM) Glucose (74-99) mg/dL Calcium (8.4-10.2) mg/dL Magnesium (1.6-2.3) mg/dL Total Bilirubin (0.2-1.3) mg/dL AST (14-36) U/L ALT (4-34) U/L Alkaline Phosphatase (38-126) U/L Troponin I <0.012 (0.000-0.034) ng/mL Total Protein (6.3-8.2) g/dL Albumin (3.5-5.0) g/dL Disposition Clinical Impression: Chest pain Disposition: HOME SELF-CARE Condition: Good Instructions (If sedation given, give patient instructions): Chest Pain (ED) Is patient prescribed a controlled substance at d/c from ED?: No Referrals: Josy Man MD [Primary Care Provider] - 1-2 days Time of Disposition: 17:45
[2021-07-27 16:33] LABS: Basophils % (A) 1 %; Eosinophils # (A) 0.2 k/uL (0-0.7); Eosinophils % (A) 5 %; HGB 12.4 gm/dL (11.4-16.0); Lymphocytes # (A) 1.4 k/uL (1.0-4.8); Lymphocytes % (A) 33 %; MCH 32.4 pg (25.0-35.0); MCHC 32.6 g/dL (31.0-37.0); MCV 99.3 fL (80.0-100.0); Mean Platelet Volume 6.6; Monocytes # (A) 0.2 k/uL (0-1.0); Monocytes % (A) 6 %; Neutrophils # (A) 2.1 k/uL (1.3-7.7); Neutrophils % (A) 50 %; Platelet Count 244 k/uL (150-450); RBC 3.82 m/uL (3.80-5.40); RDW 13.5 % (11.5-15.5); WBC 4.1 k/uL (3.8-10.6)
[2021-07-27 16:35] LABS: Albumin 3.4 g/dL (3.5-5.0); Calcium 8.4 mg/dL (8.4-10.2); Potassium 4.3 mmol/L (3.5-5.1); Total Bilirubin 0.3 mg/dL (0.2-1.3)
[2021-07-27 16:36] LABS: INR 0.9 (<1.2); Partial Thromboplastin Time 23.5 sec (22.0-30.0); Prothrombin Time 9.9 sec (9.0-12.0)
--- NOTE | 2021-07-27 17:46 | XR ---
EXAMINATION TYPE: XR chest 2V DATE OF EXAM: 07/27/2021 COMPARISON: 06/23/2021 HISTORY: Chest pain TECHNIQUE: FINDINGS: Heart and mediastinum are normal. Lungs are clear. Diaphragm is normal. There are chest kajal ds. Bony thorax is intact. IMPRESSION: No active cardiopulmonary disease. No change.
== END 2021-07-27 21:42 | disposition home or self-care (01) ==
LOC: EC 15:47
DX: R07.9 Chest pain, unspecified (principal); E11.9 Type 2 diabetes mellitus without complications; J44.9 Chronic obstructive pulmonary disease, unspecified; Z88.1 Allergy status to other antibiotic agents; Z88.9 Allergy status to unspecified drugs, medicaments and biological substances; Z91.040 Latex allergy status; Z88.5 Allergy status to narcotic agent; Z91.048 Other nonmedicinal substance allergy status; Z88.2 Allergy status to sulfonamides; Z88.8 Allergy status to other drugs, medicaments and biological substances
CPT/HCPCS: 36415; 71046; 80053; 83735; 84484; 85025; 85610; 85730; 93005; 99285

== ENCOUNTER 2021-09-12 22:45 | Inpatient (IN) | payer MEDICARE, OTHER ==
[2021-09-12] MEDS ORDERED: SODIUM CHLORIDE 0.9% 500 ML 500 ML IV STA (23:05)
--- NOTE | 2021-09-12 23:06 | ED ---
Weakness HPI - General Stated complaint: Altered mental status, poss UTI Time Seen by Provider: 09/12/21 22:51 Source: RN notes reviewed, old records reviewed Limitations: no limitations - History of Present Illness Initial comments: This is a 71-year-old female presents today for evaluation of altered mental status. Patient is a poor strain secondary to clinical condition concern for urinary tract infection history obtained by EMS and patient's prior chart. MD Complaint: generalized weakness -: unknown Severity: mild Severity scale (1-10): 1 Consistency: constant Improves with: none Worsens with: none Context: history of similar Associated Symptoms: confusion - Related Data Home Medications Medication Instructions Recorded Confirmed Levothyroxine Sodium [Synthroid] 150 mcg PO SUTUTHSA 10/02/13 09/12/21 Levothyroxine Sodium [Synthroid] 175 mcg PO MOWEFR 10/02/13 09/12/21 Nitroglycerin Sl Tabs [Nitrostat] 0.4 mg SL Q5M PRN 10/02/13 09/12/21 Zinc 50 mg PO HS 02/09/20 09/12/21 Meclizine [Antivert] 12.5 mg PO HS 10/22/20 09/12/21 Cyclobenzaprine [Flexeril] 10 mg PO Q12H PRN 05/05/21 09/12/21 Famotidine [Pepcid] 20 mg PO BID@0600,2100 05/05/21 09/12/21 Loperamide HCl [Imodium A-D] 2 mg PO BID 05/05/21 09/12/21 Melatonin 10 mg PO HS PRN 05/05/21 09/12/21 Multivitamins, Thera [Multivitamin 1 tab PO DAILY 05/05/21 09/12/21 (formulary)] Acetaminophen Tab [Tylenol] 325 mg PO Q6HR PRN 06/10/21 09/12/21 Cholecalciferol [Vitamin D3 (25 25 mcg PO DAILY 06/10/21 09/12/21 Mcg = 1000 Iu)] Cranberry Fruit Concentrate [Azo 250 mg PO HS 06/10/21 09/12/21 Cranberry] Dicyclomine HCl 10 mg PO Q6H PRN 06/10/21 09/12/21 Fluticasone Propionate [Flovent 1 puff INHALATION RT-BID 06/10/21 09/12/21 Hfa 110 mcg] Topiramate [Topamax] 25 mg PO HS 06/10/21 09/12/21 DULoxetine HCL [Cymbalta] 30 mg PO BID 09/12/21 09/12/21 Fluticasone Nasal [place] [Flonase 1 spray EA NOSTRIL BID 09/12/21 09/12/21 Nasal [place]] Gabapentin [Neurontin] 400 mg PO TID 09/12/21 09/12/21 Guaifenesin/Dextromethorphan 5 ml PO Q4H PRN 09/12/21 09/12/21 [guaiFENesin DM] HYDROcodone/APAP 7.5-325MG [[place] 1 tab PO Q4H 09/12/21 09/12/21 7.5-325] Primidone 250 mg PO HS 09/12/21 09/12/21 glipiZIDE [Glucotrol] 2.5 mg PO DAILY 09/12/21 09/12/21 ondansetron HCL [Zofran Oral Soln] 4 mg PO Q6H PRN 09/12/21 09/12/21 Previous Rx's Medication Instructions Recorded Apixaban [Eliquis] 2.5 mg PO BID #0 04/29/21 Mag Hydrox/Al Hydrox/Simeth 20 ml PO QID ml 06/25/21 [Maalox] Allergies Allergy/AdvReac Type Severity Reaction Status Date / Time enoxaparin sodium Allergy Unknown RED LUMPS Verified 09/12/21 23:16 [From Lovenox] ON ABDOMEN AT INJECTION SITES erythromycin base Allergy Unknown Rash/Hives Verified 09/12/21 23:16 latex Allergy Unknown Itching Verified 09/12/21 23:16 adhesive Allergy Rash/Hives Verified 09/12/21 23:16 morphine Allergy Rash/Hives Verified 09/12/21 23:16 pioglitazone [From Actos] Allergy Swelling Verified 09/12/21 23:16 Sulfa (Sulfonamide Allergy Anaphylaxis Verified 09/12/21 23:16 Antibiotics) tetracycline [Tetracycline] Allergy Rash/Hives Verified 09/12/21 23:16 metformin AdvReac Diarrhea Verified 09/12/21 23:16 Review of Systems ROS Statement: Those systems with pertinent positive or pertinent negative responses have been documented in the HPI. ROS Other: All systems not noted in ROS Statement are negative. Past Medical History Past Medical History: Asthma, COPD, Diabetes Mellitus, Deep Vein Thrombosis (DVT), Eye Disorder, GERD/Reflux, Hypertension, Osteoarthritis (OA), Pneumonia, Skin Disorder, Thyroid Disorder Additional Past Medical History / Comment(s): MRSA infection rt foot 5th digit and side of rt foot, Hx GLAUCOMA, TMJ, RENAL CALCULI, UTIs, DVT X 5 ( STATES CAUSED BY CONTROL PILLS AND HORMONES),[place], HAND TREMORS History of Any Multi-Drug Resistant Organisms: MRSA Date of last positivie culture/infection: 06/20/21 MDRO Source:: MRSA FOOT Past Surgical History: Back Surgery, Bladder Surgery, Breast Surgery, Heart Catheterization, Hysterectomy, Joint Replacement, Orthopedic Surgery, Tonsillectomy Additional Past Surgical History / Comment(s): 04/17/16 arthrotomy removal olecranon spur and loose bodies R elbow. , JULIANNE TOTAL HIP, LAPAROSCOPY, BREAST BIOPSY, JULIANNE CARPAL TUNNEL, JULIANNE KNEE REPLACEMENT, JULIANNE ROTATOR CUFF REPAIR, LEFT FOOT SURG, Right foot bursa removal, Past Anesthesia/Blood Transfusion Reactions: Postoperative Nausea & Vomiting (PONV) Past Psychological History: No Psychological Hx Reported Smoking Status: Never smoker Past Alcohol Use History: Rare Past Drug Use History: None Reported - Past Family History Mother Family Medical History: Hyperlipidemia, Hypertension Additional Family Medical History / Comment(s): Mother at age 96. Father Family Medical History: Osteoarthritis (OA) Sister(s) Family Medical History: Pulmonary Embolus General Exam General appearance: alert, in no apparent distress Head exam: Present: atraumatic, normocephalic, normal inspection Eye exam: Present: normal appearance, PERRL, EOMI. Absent: scleral icterus, conjunctival injection, periorbital swelling ENT exam: Present: normal exam, mucous membranes moist Neck exam: Present: normal inspection. Absent: tenderness, meningismus, l ymphadenopathy Respiratory exam: Present: normal lung sounds bilaterally. Absent: respiratory distress, wheezes, rales, rhonchi, stridor Cardiovascular Exam: Present: regular rate, normal rhythm, normal heart sounds. Absent: systolic murmur, diastolic murmur, rubs, gallop, clicks GI/Abdominal exam: Present: soft, normal bowel sounds. Absent: distended, tenderness, guarding, rebound, rigid Extremities exam: Present: normal inspection, full ROM, normal capillary refill. Absent: tenderness, pedal edema, joint swelling, calf tenderness Back exam: Present: normal inspection Neurological exam: Present: alert, oriented X3, CN II-XII intact Psychiatric exam: Present: normal affect, normal mood Skin exam: Present: warm, dry, intact, normal color. Absent: rash Course Vital Signs 09/12/21 23:59 Temperature 99.3 F Pulse Rate 73 Respiratory 16 Rate Blood Pressure 101/54 O2 Sat by Pulse 89 L Oximetry - Reevaluation(s) Reevaluation #1: 09/13/21 00:26 Medical record is reviewed Reevaluation #2: 09/13/21 02:07 Patient informed of results and questions answered Reevaluation #3: 09/13/21 02:07 No improvement here in the emergency department - Consultations Consultation #1: Spoke with Dr. Villeda who agrees to admit this patient Medical Decision Making - Medical Decision Making 71 female to the emergency department for evaluation of altered mental status found to be hypoxic with history of COPD underlying UTI weakness dehydration acute kidney injury patient is also persistently weak. Patient continued. Monitor for supportive care breathing treatments and IV antibiotics - Lab Data Result diagrams: 09/12/21 23:05 09/12/21 23:05 Lab Results 09/12/21 09/12/21 09/12/21 Range/Units 23:05 23:05 23:05 WBC 12.5 H (3.8-10.6) k/uL RBC 3.79 L (3.80-5.40) m/uL Hgb 12.0 (11.4-16.0) gm/dL Hct 36.6 (34.0-46.0) % MCV 96.4 (80.0-100.0) fL MCH 31.5 (25.0-35.0) pg MCHC 32.7 (31.0-37.0) g/dL RDW 13.6 (11.5-15.5) % Plt Count 103 L (150-450) k/uL MPV 7.0 Neutrophils % 88 % Lymphocytes % 6 % Monocytes % 5 % Eosinophils % 0 % Basophils % 0 % Neutrophils # 11.0 H (1.3-7.7) k/uL Lymphocytes # 0.7 L (1.0-4.8) k/uL Monocytes # 0.6 (0-1.0) k/uL Eosinophils # 0.0 (0-0.7) k/uL Basophils # 0.0 (0-0.2) k/uL PT 11.0 (9.0-12.0) sec INR 1.0 (<1.2) APTT 26.6 (22.0-30.0) sec Sodium 131 L (137-145) mmol/L Potassium 4.5 (3.5-5.1) mmol/L Chloride 100 (98-107) mmol/L Carbon Dioxide 26 (22-30) mmol/L Anion Gap 5 mmol/L BUN 42 H (7-17) mg/dL Creatinine 1.38 H (0.52-1.04) mg/dL Est GFR (CKD-EPI)AfAm 44 (>60 ml/min/1.73 sqM) Est GFR (CKD-EPI)NonAf 38 (>60 ml/min/1.73 sqM) Glucose 184 H (74-99) mg/dL Plasma Lactic Acid Fish (0.7-2.0) mmol/L Calcium 7.8 L (8.4-10.2) mg/dL Phosphorus 3.0 (2.5-4.5) mg/dL Magnesium 2.4 H (1.6-2.3) mg/dL Total Bilirubin 0.4 (0.2-1.3) mg/dL AST 66 H (14-36) U/L ALT 61 H (4-34) U/L Alkaline Phosphatase 101 (38-126) U/L Troponin I (0.000-0.034) ng/mL NT-Pro-B Natriuret Pep pg/mL Total Protein 5.6 L (6.3-8.2) g/dL Albumin 3.2 L (3.5-5.0) g/dL TSH 5.330 H (0.465-4.680) mIU/L 09/12/21 09/12/21 09/12/21 Range/Units 23:05 23:05 23:05 WBC (3.8-10.6) k/uL RBC (3.80-5.40) m/uL Hgb (11.4-16.0) gm/dL Hct (34.0-46.0) % MCV (80.0-100.0) fL MCH (25.0-35.0) pg MCHC (31.0-37.0) g/dL RDW (11.5-15.5) % Plt Count (150-450) k/uL MPV Neutrophils % % Lymphocytes % % Monocytes % % Eosinophils % % Basophils % % Neutrophils # (1.3-7.7) k/uL Lymphocytes # (1.0-4.8) k/uL Monocytes # (0-1.0) k/uL Eosinophils # (0-0.7) k/uL Basophils # (0-0.2) k/uL PT (9.0-12.0) sec INR (<1.2) APTT (22.0-30.0) sec Sodium (137-145) mmol/L Potassium (3.5-5.1) mmol/L Chloride (98-107) mmol/L Carbon Dioxide (22-30) mmol/L Anion Gap mmol/L BUN (7-17) mg/dL Creatinine (0.52-1.04) mg/dL Est GFR (CKD-EPI)AfAm (>60 ml/min/1.73 sqM) Est GFR (CKD-EPI)NonAf (>60 ml/min/1.73 sqM) Glucose (74-99) mg/dL Plasma Lactic Acid Fish 1.9 (0.7-2.0) mmol/L Calcium (8.4-10.2) mg/dL Phosphorus (2.5-4.5) mg/dL Magnesium (1.6-2.3) mg/dL Total Bilirubin (0.2-1.3) mg/dL AST (14-36) U/L ALT (4-34) U/L Alkaline Phosphatase (38-126) U/L Troponin I 0.091 H* (0.000-0.034) ng/mL NT-Pro-B Natriuret Pep 1890 pg/mL Total Protein (6.3-8.2) g/dL Albumin (3.5-5.0) g/dL TSH (0.465-4.680) mIU/L Disposition Clinical Impression: Weakness, Altered mental status, Unstable angina pectoris, History of COPD, MELI (acute kidney injury), Dehydration, Hypoxia, UTI (urinary tract infection) Disposition: ADMITTED IP TO THIS HOSP Condition: Fair Is patient prescribed a controlled substance at d/c from ED?: No Referrals: Tiarra Joel MD [Primary Care Provider] - 1-2 days
[2021-09-13 00:40] LABS: Partial Thromboplastin Time 26.6 sec (22.0-30.0)
[2021-09-13 00:48] LABS: Basophils % (A) 0 %; Eosinophils % (A) 0 %; HCT 36.6 % (34.0-46.0); Lymphocytes # (A) 0.7 k/uL (1.0-4.8); Lymphocytes % (A) 6 %; MCH 31.5 pg (25.0-35.0); MCHC 32.7 g/dL (31.0-37.0); MCV 96.4 fL (80.0-100.0); Monocytes # (A) 0.6 k/uL (0-1.0); Monocytes % (A) 5 %; Neutrophils % (A) 88 %; Platelet Count 103 k/uL (150-450); RBC 3.79 m/uL (3.80-5.40); RDW 13.6 % (11.5-15.5); WBC 12.5 k/uL (3.8-10.6)
--- NOTE | 2021-09-13 00:58 | XR ---
EXAMINATION TYPE: XR chest 1V portable DATE OF EXAM: 09/13/2021 COMPARISON: 07/27/2021 HISTORY: Altered mental status TECHNIQUE: Single view FINDINGS: Heart is normal in size. There is elevated right diaphragm. There is some mild atelectasis at the lung bases. Bony thorax appears intact. IMPRESSION: There is some mild atelectasis at the lung bases increased compared to old exam. No heart failure seen.
[2021-09-13 01:13] LABS: Albumin 3.2 g/dL (3.5-5.0); Calcium 7.8 mg/dL (8.4-10.2); Magnesium 2.4 mg/dL (1.6-2.3); Potassium 4.5 mmol/L (3.5-5.1); Total Bilirubin 0.4 mg/dL (0.2-1.3); Total Protein 5.6 g/dL (6.3-8.2)
--- NOTE | 2021-09-13 02:09 | ED ---
Medical Decision Making - Medical Decision Making Addendum for disposition time - Lab Data Result diagrams: 09/12/21 23:05 09/12/21 23:05 Lab Results 09/12/21 09/12/21 09/12/21 Range/Units 23:05 23:05 23:05 WBC 12.5 H (3.8-10.6) k/uL RBC 3.79 L (3.80-5.40) m/uL Hgb 12.0 (11.4-16.0) gm/dL Hct 36.6 (34.0-46.0) % MCV 96.4 (80.0-100.0) fL MCH 31.5 (25.0-35.0) pg MCHC 32.7 (31.0-37.0) g/dL RDW 13.6 (11.5-15.5) % Plt Count 103 L (150-450) k/uL MPV 7.0 Neutrophils % 88 % Lymphocytes % 6 % Monocytes % 5 % Eosinophils % 0 % Basophils % 0 % Neutrophils # 11.0 H (1.3-7.7) k/uL Lymphocytes # 0.7 L (1.0-4.8) k/uL Monocytes # 0.6 (0-1.0) k/uL Eosinophils # 0.0 (0-0.7) k/uL Basophils # 0.0 (0-0.2) k/uL PT 11.0 (9.0-12.0) sec INR 1.0 (<1.2) APTT 26.6 (22.0-30.0) sec Sodium 131 L (137-145) mmol/L Potassium 4.5 (3.5-5.1) mmol/L Chloride 100 (98-107) mmol/L Carbon Dioxide 26 (22-30) mmol/L Anion Gap 5 mmol/L BUN 42 H (7-17) mg/dL Creatinine 1.38 H (0.52-1.04) mg/dL Est GFR (CKD-EPI)AfAm 44 (>60 ml/min/1.73 sqM) Est GFR (CKD-EPI)NonAf 38 (>60 ml/min/1.73 sqM) Glucose 184 H (74-99) mg/dL Plasma Lactic Acid Fish (0.7-2.0) mmol/L Calcium 7.8 L (8.4-10.2) mg/dL Phosphorus 3.0 (2.5-4.5) mg/dL Magnesium 2.4 H (1.6-2.3) mg/dL Total Bilirubin 0.4 (0.2-1.3) mg/dL AST 66 H (14-36) U/L ALT 61 H (4-34) U/L Alkaline Phosphatase 101 (38-126) U/L Troponin I (0.000-0.034) ng/mL NT-Pro-B Natriuret Pep pg/mL Total Protein 5.6 L (6.3-8.2) g/dL Albumin 3.2 L (3.5-5.0) g/dL TSH 5.330 H (0.465-4.680) mIU/L 09/12/21 09/12/21 09/12/21 Range/Units 23:05 23:05 23:05 WBC (3.8-10.6) k/uL RBC (3.80-5.40) m/uL Hgb (11.4-16.0) gm/dL Hct (34.0-46.0) % MCV (80.0-100.0) fL MCH (25.0-35.0) pg MCHC (31.0-37.0) g/dL RDW (11.5-15.5) % Plt Count (150-450) k/uL MPV Neutrophils % % Lymphocytes % % Monocytes % % Eosinophils % % Basophils % % Neutrophils # (1.3-7.7) k/uL Lymphocytes # (1.0-4.8) k/uL Monocytes # (0-1.0) k/uL Eosinophils # (0-0.7) k/uL Basophils # (0-0.2) k/uL PT (9.0-12.0) sec INR (<1.2) APTT (22.0-30.0) sec Sodium (137-145) mmol/L Potassium (3.5-5.1) mmol/L Chloride (98-107) mmol/L Carbon Dioxide (22-30) mmol/L Anion Gap mmol/L BUN (7-17) mg/dL Creatinine (0.52-1.04) mg/dL Est GFR (CKD-EPI)AfAm (>60 ml/min/1.73 sqM) Est GFR (CKD-EPI)NonAf (>60 ml/min/1.73 sqM) Glucose (74-99) mg/dL Plasma Lactic Acid Fish 1.9 (0.7-2.0) mmol/L Calcium (8.4-10.2) mg/dL Phosphorus (2.5-4.5) mg/dL Magnesium (1.6-2.3) mg/dL Total Bilirubin (0.2-1.3) mg/dL AST (14-36) U/L ALT (4-34) U/L Alkaline Phosphatase (38-126) U/L Troponin I 0.091 H* (0.000-0.034) ng/mL NT-Pro-B Natriuret Pep 1890 pg/mL Total Protein (6.3-8.2) g/dL Albumin (3.5-5.0) g/dL TSH (0.465-4.680) mIU/L Disposition Clinical Impression: Weakness, Altered mental status, Unstable angina pectoris, History of COPD, MELI (acute kidney injury), Dehydration, Hypoxia, UTI (urinary tract infection) Disposition: ADMITTED IP TO THIS HOSP Condition: Fair Referrals: Tiarra Joel MD [Primary Care Provider] - 1-2 days Decision Time: 02:10
[2021-09-13 02:51] LABS: Appearance,Urine Cloudy (Clear); Bacteria,Urine Rare /hpf; Bilirubin,Urine Negative (Negative); Blood,Urine Small (Negative); Color,Urine Yellow; Glucose,Urine (UA) Negative (Negative); Ketones,Urine Negative (Negative); Leukocyte Esterase,Urine Large (Negative); Mucus,Urine Rare /hpf; Nitrite,Urine Negative (Negative); Protein,Urine 3+ (Negative); RBC,Urine 8 /hpf (0-5); Specific Gravity,Urine 1.019 (1.001-1.035); Squamous Epithelial Cell,Urine <1 /hpf (0-4); Uric Acid Crystals,Urine Occasional /hpf; Urobilinogen,Urine <2.0 mg/dL (<2.0); WBC,Urine 66 /hpf (0-5)
[2021-09-13] MEDS ORDERED: cefTRIAXone IN SWFI 1,000 MG/10 ML SYRINGE IVP STA (06:59)
[2021-09-13] MEDS ORDERED: SODIUM CHLORIDE 0.9% 1,000 ML IV SCH (07:00)
[2021-09-13] MEDS ORDERED: NALOXONE 0.4 MG/ML 1 ML VIAL IV PRN (07:00)
[2021-09-13] MEDS ORDERED: guaiFENesin-DM 100-10MG/5ML 10 ML CUP PO PRN (08:46)
[2021-09-13 10:23] LABS: Glucose,Whole Blood 154 mg/dL (75-99)
[2021-09-13 12:05] LABS: Albumin 3.4 g/dL (3.5-5.0); Potassium 4.6 mmol/L (3.5-5.1); Total Bilirubin 0.4 mg/dL (0.2-1.3)
[2021-09-13 12:31] LABS: Basophils # (A) 0.1 k/uL (0-0.2); Basophils % (A) 1 %; Eosinophils % (A) 0 %; HGB 12.3 gm/dL (11.4-16.0); Lymphocytes # (A) 0.6 k/uL (1.0-4.8); Lymphocytes % (A) 6 %; MCHC 30.6 g/dL (31.0-37.0); Mean Platelet Volume 7.3; Monocytes # (A) 0.4 k/uL (0-1.0); Monocytes % (A) 4 %; Neutrophils % (A) 88 %; RBC 4.08 m/uL (3.80-5.40); WBC 10.2 k/uL (3.8-10.6)
[2021-09-13] MEDS: DULoxetine HCL 30 MG CAPSULE.DR PO SCH ×2 (13:32→21:37)
[2021-09-13] MEDS: GABAPENTIN 400 MG CAP PO SCH ×3 (13:32→21:48)
[2021-09-13] MEDS: HYDROcodone/APAP 7.5-325MG 1 EACH TAB PO SCH ×4 (13:32→21:37)
[2021-09-13] MEDS: CHOLECALCIFEROL 25 MCG (1000 IU) TABLET PO SCH (13:32)
[2021-09-13] MEDS: FLUTICASONE 50MCG/SPRAY NASAL 16GM EA NOSTRIL SCH ×2 (13:32→21:37)
[2021-09-13] MEDS: APIXABAN 2.5 MG TABLET PO SCH ×2 (13:32→21:36)
[2021-09-13] MEDS: MULTIVITAMINS, THERA 1 EACH TAB PO SCH (13:33)
[2021-09-13] MEDS: MAG HYDROX/AL HYDROX/SIMETH 30 ML CUP PO SCH ×4 (13:33→21:48)
[2021-09-13] MEDS: LOPERAMIDE 2 MG CAP PO SCH ×2 (13:33→21:37)
[2021-09-13] MEDS: LEVOTHYROXINE 75 MCG TAB PO SCH (13:33)
[2021-09-13 13:57] LABS: Platelet Count 86 k/uL (150-450); RBC Morphology Normal
[2021-09-13] MEDS: INSULIN ASPART (NovoLOG) 100 UNIT/ML VIAL SQ SCH ×3 (14:53→21:47)
[2021-09-13 17:22] LABS: Glucose,Whole Blood 360 mg/dL (75-99)
[2021-09-13] MEDS: FAMOTIDINE 20 MG TAB PO SCH (18:13)
[2021-09-13] MEDS: FLUTICASONE 110 MCG INHALER INHALATION SCH (19:54)
[2021-09-13] MEDS ORDERED: VANCOMYCIN IV PER PHARMACY 1 EACH MISC MISCELLANE PRN (20:03)
[2021-09-13] MEDS ORDERED: VANCOMYCIN TROUGH DUE 1 EACH MISC MISCELLANE ONE (20:03)
[2021-09-13] MEDS ORDERED: IOPAMIDOL CONTRAST (ORAL USE) VIAL PO PRN (20:06)
--- NOTE | 2021-09-13 20:35 | P.HPIM ---
History of Present Illness H&P Date: 09/13/21 This is a 71 year old female with past medical history significant for COPD, Diabetes, DVT, thyroid, MRSA infection. She presents to the from rehab with concern for altered mental status and fever. There is also concern for UTI. Chest Xray showing mild atelectasis at the lung base which is increased. Urinalysis was completed showing cloudy urine, proteinuria, small blood, large luekocyte esterase, 66 WBC. She is confused and lethargic at the time of examination. She is arousable with touch. Denies chest pain, shortness of breath. She denies abdominal pain. She is a poor historian. She was recently discharged from this facility in June of this year where she underwent excision of bursa right foot and partial 5th toe metatarsal head resection of the right foot secondary to osteomyelitis and cellulitis of her right foot and cultures were positive for MRSA at that time. Labs showing white count 12.5, sodium 131, BUN 42, creatinine 1.38, glucose is 180, TSH 5.330. Concern for UTI with sepsis as her procalcitonin level is 19.10. She has been started on IV ceftriaxone empirically and infectious disease has been consulted. Her T-max since admission is 102.3 axillary and she continues to be febrile. Her troponin was found to be elevated at 0.091 and proBNP 1890. There is no history of heart failure. She will also be admitted with telemetry monitoring and trend troponin levels. REVIEW OF SYSTEMS: CONSTITUTIONAL: Denies fever. HEENT: No recent visual problems or hearing problems. Denied any sore throat. CARDIOVASCULAR: No chest pain, orthopnea, PND, no palpitations, no syncope. PULMONARY: No shortness of breath, no cough, no hemoptysis. GASTROINTESTINAL: Denies nausea vomiting diarrhea NEUROLOGICAL: No headaches, no weakness, no numbness. HEMATOLOGICAL: Denies any bleeding or petechiae. GENITOURINARY: Denies any burning micturition, frequency, or urgency. MUSCULOSKELETAL/RHEUMATOLOGICAL: Denies any joint pain, swelling, or any muscle pain. ENDOCRINE: Denies any polyuria or polydipsia. The rest of the 14-point review of systems is negative. PHYSICAL EXAMINATION: GENERAL: The patient is alert and oriented x1, Lethargic. Well developed, well nourished. HEENT: Pupils are round and equally reacting to light. EOMI. No scleral icterus. No conjunctival pallor. Normocephalic, atraumatic. No pharyngeal erythema. No thyromegaly. CARDIOVASCULAR: S1 and S2 present. No murmurs, rubs, or gallops. PULMONARY: Chest is Diminished ABDOMEN: Soft, nontender, nondistended, normoactive bowel sounds. No palpable organomegaly. MUSCULOSKELETAL: No joint swelling or deformity. EXTREMITIES: No cyanosis, clubbing, or pedal edema. Trace ankle edema NEUROLOGICAL: Gross neurological examination did not reveal any focal deficits. SKIN: No rashes. Assessment and Plan Assessment Fever with sepsis most likely UTI, on IV ceftriaxone with infectious disease consultation, procalcitonin is elevated at 19 Leukocytosis secondary to above Acute metabolic and toxic encephalopathy from dehydration and UTI Hyponatremia, hypovolemic secondary to dehydration improved with IV fluids Acute kidney injury mostly prerenal patient is dehydrated on admission, poor oral intake Elevated troponin, follow trends, most likely troponin leak Decreased platelet count, will monitor trends Elevated LFT's abdominal pelvis CT has been ordered History of UTI with MDRO Recent 5th toe resection secondary to osteomyelitis/cellulitis of right foot treated with IV vanco outpatient History COPD not in acute exacerbation Diabetes mellitus type 2 with hyperglycemia Hypertension Thyroid disorder with TSH 5 this admission Gastroesophageal Reflux Disease History DVT on eliquis GI Prophylaxis Full Code Plan This is a 71 year old female admitted with concerns for fever and sepsis. Infectious disease has been consulted Continue patient on empiric antibiotic coverage Repeat procalcitonin level Continue IV fluids Urine and blood culture pending EKG Resume appropriate home medications Follow up labs in AM PT/OT consultation Discharge plan back to rehab when medically stable The impression and plan of care has been dictated by Hodan Dominguez Nurse Practitioner as directed. Dr. Ramana MD I have performed a history and physical examination and medical decision making of this patient, discussed the same with the dictator, and agree with the dictators assessment and plan as written, documented as a scribe. Based on total visit time, I have performed more than 50% of this visit. Past Medical History Past Medical History: Asthma, COPD, Diabetes Mellitus, Deep Vein Thrombosis (DVT), Eye Disorder, GERD/Reflux, Hypertension, Osteoarthritis (OA), Pneumonia, Skin Disorder, Thyroid Disorder Additional Past Medical History / Comment(s): MRSA infection rt foot 5th digit and side of rt foot, Hx GLAUCOMA, TMJ, RENAL CALCULI, UTIs, DVT X 5 ( STATES CAUSED BY CONTROL PILLS AND HORMONES),[place], HAND TREMORS History of Any Multi-Drug Resistant Organisms: MRSA Date of last positivie culture/infection: 06/20/21 MDRO Source:: MRSA FOOT Past Surgical History: Back Surgery, Bladder Surgery, Breast Surgery, Heart Catheterization, Hysterectomy, Joint Replacement, Orthopedic Surgery, Tonsillectomy Additional Past Surgical History / Comment(s): 04/17/16 arthrotomy removal olecranon spur and loose bodies R elbow. , JULIANNE TOTAL HIP, LAPAROSCOPY, BREAST BIOPSY, JULIANNE CARPAL TUNNEL, JULIANNE KNEE REPLACEMENT, JULIANNE ROTATOR CUFF REPAIR, LEFT FOOT SURG, Right foot bursa removal, Past Anesthesia/Blood Transfusion Reactions: Postoperative Nausea & Vomiting (PONV) Past Psychological History: No Psychological Hx Reported Smoking Status: Never smoker Past Alcohol Use History: Rare Past Drug Use History: None Reported - Past Family History Mother Family Medical History: Hyperlipidemia, Hypertension Additional Family Medical History / Comment(s): Mother at age 96. Father Family Medical History: Osteoarthritis (OA) Sister(s) Family Medical History: Pulmonary Embolus Medications and Allergies Home Medications Medication Instructions Recorded Confirmed Type Levothyroxine Sodium [Synthroid] 150 mcg PO SUTUTHSA 10/02/13 09/12/21 History Levothyroxine Sodium [Synthroid] 175 mcg PO MOWEFR 10/02/13 09/12/21 History Nitroglycerin Sl Tabs [Nitrostat] 0.4 mg SL Q5M PRN 10/02/13 09/12/21 History Zinc 50 mg PO HS 02/09/20 09/12/21 History Meclizine [Antivert] 12.5 mg PO HS 10/22/20 09/12/21 History Apixaban [Eliquis] 2.5 mg PO BID #0 04/29/21 09/12/21 Rx Cyclobenzaprine [Flexeril] 10 mg PO Q12H PRN 05/05/21 09/12/21 History Famotidine [Pepcid] 20 mg PO BID@0600,2100 05/05/21 09/12/21 History Loperamide HCl [Imodium A-D] 2 mg PO BID 05/05/21 09/12/21 History Melatonin 10 mg PO HS PRN 05/05/21 09/12/21 History Multivitamins, Thera [Multivitamin 1 tab PO DAILY 05/05/21 09/12/21 History (formulary)] Acetaminophen Tab [Tylenol] 325 mg PO Q6HR PRN 06/10/21 09/12/21 History Cholecalciferol [Vitamin D3 (25 25 mcg PO DAILY 06/10/21 09/12/21 History Mcg = 1000 Iu)] Cranberry Fruit Concentrate [Azo 250 mg PO HS 06/10/21 09/12/21 History Cranberry] Dicyclomine HCl 10 mg PO Q6H PRN 06/10/21 09/12/21 History Fluticasone Propionate [Flovent 1 puff INHALATION RT-BID 06/10/21 09/12/21 History Hfa 110 mcg] Topiramate [Topamax] 25 mg PO HS 06/10/21 09/12/21 History Mag Hydrox/Al Hydrox/Simeth 20 ml PO QID ml 06/25/21 09/12/21 Rx [Maalox] DULoxetine HCL [Cymbalta] 30 mg PO BID 09/12/21 09/12/21 History Fluticasone Nasal [place] [Flonase 1 spray EA NOSTRIL BID 09/12/21 09/12/21 History Nasal [place]] Gabapentin [Neurontin] 400 mg PO TID 09/12/21 09/12/21 History Guaifenesin/Dextromethorphan 5 ml PO Q4H PRN 09/12/21 09/12/21 History [guaiFENesin DM] HYDROcodone/APAP 7.5-325MG [[place] 1 tab PO Q4H 09/12/21 09/12/21 History 7.5-325] Primidone 250 mg PO HS 09/12/21 09/12/21 History glipiZIDE [Glucotrol] 2.5 mg PO DAILY 09/12/21 09/12/21 History ondansetron HCL [Zofran Oral Soln] 4 mg PO Q6H PRN 09/12/21 09/12/21 History Allergies Allergy/AdvReac Type Severity Reaction Status Date / Time enoxaparin sodium Allergy Unknown RED LUMPS Verified 09/12/21 23:16 [From Lovenox] ON ABDOMEN AT INJECTION SITES erythromycin base Allergy Unknown Rash/Hives Verified 09/12/21 23:16 latex Allergy Unknown Itching Verified 09/12/21 23:16 adhesive Allergy Rash/Hives Verified 09/12/21 23:16 morphine Allergy Rash/Hives Verified 09/12/21 23:16 pioglitazone [From Actos] Allergy Swelling Verified 09/12/21 23:16 Sulfa (Sulfonamide Allergy Anaphylaxis Verified 09/12/21 23:16 Antibiotics) tetracycline [Tetracycline] Allergy Rash/Hives Verified 09/12/21 23:16 metformin AdvReac Diarrhea Verified 09/12/21 23:16 Physical Exam Vitals: Vital Signs Temp Pulse Pulse Resp BP BP Pulse Ox 09/13/21 15:19 99.9 F H 72 16 133/61 98 09/13/21 13:22 72 18 122/59 98 09/13/21 10:00 101.7 F H 73 18 128/64 98 09/13/21 07:53 73 18 126/58 97 09/13/21 07:41 102.3 F H 75 18 124/56 96 09/13/21 06:23 73 19 126/53 96 09/13/21 05:38 72 21 132/57 97 09/13/21 03:22 75 17 125/71 98 09/12/21 23:59 99.3 F 73 16 101/54 89 L Intake and Output 09/13/21 09/13/21 09/13/21 06:59 14:59 22:59 Other: # Voids 0 Weight 90.718 kg Results CBC & Chem 7: 09/13/21 11:16 09/13/21 11:16 Labs: Abnormal Lab Results - Last 24 Hours (Table) 09/12/21 09/12/21 09/12/21 Range/Units 23:05 23:05 23:05 WBC 12.5 H (3.8-10.6) k/uL RBC 3.79 L (3.80-5.40) m/uL MCHC (31.0-37.0) g/dL Plt Count 103 L (150-450) k/uL Neutrophils # 11.0 H (1.3-7.7) k/uL Lymphocytes # 0.7 L (1.0-4.8) k/uL Sodium 131 L (137-145) mmol/L BUN 42 H (7-17) mg/dL Creatinine 1.38 H (0.52-1.04) mg/dL Glucose 184 H (74-99) mg/dL POC Glucose (mg/dL) (75-99) mg/dL Calcium 7.8 L (8.4-10.2) mg/dL Magnesium 2.4 H (1.6-2.3) mg/dL AST 66 H (14-36) U/L ALT 61 H (4-34) U/L Troponin I 0.091 H* (0.000-0.034) ng/mL Total Protein 5.6 L (6.3-8.2) g/dL Albumin 3.2 L (3.5-5.0) g/dL Procalcitonin (0.02-0.09) ng/mL TSH 5.330 H (0.465-4.680) mIU/L Urine Appearance (Clear) Urine Protein (Negative) Urine Blood (Negative) Ur Leukocyte Esterase (Negative) Urine RBC (0-5) /hpf Urine WBC (0-5) /hpf Uric Acid Crystals (None) /hpf Urine Bacteria (None) /hpf Urine Mucus (None) /hpf 09/13/21 09/13/21 09/13/21 Range/Units 02:29 10:21 11:16 WBC (3.8-10.6) k/uL RBC (3.80-5.40) m/uL MCHC 30.6 L (31.0-37.0) g/dL Plt Count 86 L (150-450) k/uL Neutrophils # 9.0 H (1.3-7.7) k/uL Lymphocytes # 0.6 L (1.0-4.8) k/uL Sodium (137-145) mmol/L BUN (7-17) mg/dL Creatinine (0.52-1.04) mg/dL Glucose (74-99) mg/dL POC Glucose (mg/dL) 154 H (75-99) mg/dL Calcium (8.4-10.2) mg/dL Magnesium (1.6-2.3) mg/dL AST (14-36) U/L ALT (4-34) U/L Troponin I (0.000-0.034) ng/mL Total Protein (6.3-8.2) g/dL Albumin (3.5-5.0) g/dL Procalcitonin (0.02-0.09) ng/mL TSH (0.465-4.680) mIU/L Urine Appearance Cloudy H (Clear) Urine Protein 3+ H (Negative) Urine Blood Small H (Negative) Ur Leukocyte Esterase Large H (Negative) Urine RBC 8 H (0-5) /hpf Urine WBC 66 H (0-5) /hpf Uric Acid Crystals Occasional H (None) /hpf Urine Bacteria Rare H (None) /hpf Urine Mucus Rare H (None) /hpf 09/13/21 09/13/21 09/13/21 Range/Units 11:16 11:16 17:16 WBC (3.8-10.6) k/uL RBC (3.80-5.40) m/uL MCHC (31.0-37.0) g/dL Plt Count (150-450) k/uL Neutrophils # (1.3-7.7) k/uL Lymphocytes # (1.0-4.8) k/uL Sodium 136 L (137-145) mmol/L BUN 34 H (7-17) mg/dL Creatinine 1.23 H (0.52-1.04) mg/dL Glucose 175 H (74-99) mg/dL POC Glucose (mg/dL) 360 H (75-99) mg/dL Calcium 8.0 L (8.4-10.2) mg/dL Magnesium (1.6-2.3) mg/dL AST 61 H (14-36) U/L ALT 60 H (4-34) U/L Troponin I (0.000-0.034) ng/mL Total Protein 6.0 L (6.3-8.2) g/dL Albumin 3.4 L (3.5-5.0) g/dL Procalcitonin 19.10 H (0.02-0.09) ng/mL TSH (0.465-4.680) mIU/L Urine Appearance (Clear) Urine Protein (Negative) Urine Blood (Negative) Ur Leukocyte Esterase (Negative) Urine RBC (0-5) /hpf Urine WBC (0-5) /hpf Uric Acid Crystals (None) /hpf Urine Bacteria (None) /hpf Urine Mucus (None) /hpf Microbiology - Last 24 Hours (Table) 09/13/21 02:29 Urine Culture - Preliminary Urine,Voided Assessment and Plan Time with Patient: Less than 30
[2021-09-13] MEDS: SODIUM CHLORIDE 0.9% 1,000 ML IV SCH (20:53)
[2021-09-13] MEDS ORDERED: VANCOMYCIN 1,500 MG in SODIUM CHLORIDE 0.9% 250 ML IVPB SCH (21:00)
[2021-09-13] MEDS ORDERED: FAMOTIDINE 20 MG TAB PO SCH (21:00)
[2021-09-13] MEDS: ACETAMINOPHEN IV (For NPO) 1,000 MG in EMPTY BAG 1 BAG IVPB SCH (21:04)
[2021-09-13] MEDS: TOPIRAMATE 25 MG TAB PO SCH (21:38)
[2021-09-13] MEDS: ZINC SULFATE 220 MG CAP PO SCH (21:38)
[2021-09-13] MEDS: MECLIZINE 12.5 MG TAB PO SCH (21:38)
[2021-09-13] MEDS: PRIMIDONE 250 MG TAB PO SCH (21:38)
[2021-09-13 21:48] LABS: Glucose,Whole Blood 180 mg/dL (75-99)
--- NOTE | 2021-09-13 22:51 | P.CONS ---
History of Present Illness - Reason for Consult Consult date: 09/13/21 Fever Requesting physician: Hodan Dominguez - Chief Complaint Fever and mental status changes x one day - History of Present Illness Patient is a 71-year-old female with past medical history taken for COPD diabetes mellitus and recently treated for right foot MRSA infection, the patient was brought into the ER for evaluation of mental status changes and fever in this patient symptom pattern has been going on for a day or so before the patient was brought into the ER on arrival to the ER patient did have a fever of 102.3 F, no significant tachycardia or hypoxemia no need for supplemental oxygen patient did have white count of 12.5 with a left shift BUN/ creatinine was mildly elevated liver enzymes mildly elevated 19.10 did have a positive UA chest x-ray was reported was some atelectasis lung base increased compared to old exam patient was started on Rocephin and is being admitted to the hospital infectious disease was consulted for further management of antibiotic therapy, most information has been obtained from review the chart and talking to nursing staff and the patient was currently out" not provide any history Review of Systems Positive points has been mentioned in HPI complete review could not be obtained because of his underlying mental status Past Medical History Past Medical History: Asthma, COPD, Diabetes Mellitus, Deep Vein Thrombosis (DVT), Eye Disorder, GERD/Reflux, Hypertension, Osteoarthritis (OA), Pneumonia, Skin Disorder, Thyroid Disorder Additional Past Medical History / Comment(s): MRSA infection rt foot 5th digit and side of rt foot, Hx GLAUCOMA, TMJ, RENAL CALCULI, UTIs, DVT X 5 ( STATES CAUSED BY CONTROL PILLS AND HORMONES),SOLOMON, HAND TREMORS History of Any Multi-Drug Resistant Organisms: MRSA Year Discovered:: 06/20/21 MDRO Source:: MRSA FOOT Past Surgical History: Back Surgery, Bladder Surgery, Breast Surgery, Heart Catheterization, Hysterectomy, Joint Replacement, Orthopedic Surgery, Tonsillectomy Additional Past Surgical History / Comment(s): 04/17/16 arthrotomy removal olecranon spur and loose bodies R elbow. , JULIANNE TOTAL HIP, LAPAROSCOPY, BREAST BIOPSY, JULIANNE CARPAL TUNNEL, JULIANNE KNEE REPLACEMENT, JULIANNE ROTATOR CUFF REPAIR, LEFT FOOT SURG, Right foot bursa removal, Past Anesthesia/Blood Transfusion Reactions: Postoperative Nausea & Vomiting (PONV) Past Psychological History: No Psychological Hx Reported Smoking Status: Never smoker Past Alcohol Use History: Rare Past Drug Use History: None Reported - Past Family History Mother Family Medical History: Hyperlipidemia, Hypertension Additional Family Medical History / Comment(s): Mother at age 96. Father Family Medical History: Osteoarthritis (OA) Sister(s) Family Medical History: Pulmonary Embolus Medications and Allergies Home Medications Medication Instructions Recorded Confirmed Type Levothyroxine Sodium [Synthroid] 150 mcg PO SUTUTHSA 10/02/13 09/12/21 History Levothyroxine Sodium [Synthroid] 175 mcg PO MOWEFR 10/02/13 09/12/21 History Nitroglycerin Sl Tabs [Nitrostat] 0.4 mg SL Q5M PRN 10/02/13 09/12/21 History Zinc 50 mg PO HS 02/09/20 09/12/21 History Meclizine [Antivert] 12.5 mg PO HS 10/22/20 09/12/21 History Apixaban [Eliquis] 2.5 mg PO BID #0 04/29/21 09/12/21 Rx Cyclobenzaprine [Flexeril] 10 mg PO Q12H PRN 05/05/21 09/12/21 History Famotidine [Pepcid] 20 mg PO BID@0600,2100 05/05/21 09/12/21 History Loperamide HCl [Imodium A-D] 2 mg PO BID 05/05/21 09/12/21 History Melatonin 10 mg PO HS PRN 05/05/21 09/12/21 History Multivitamins, Thera [Multivitamin 1 tab PO DAILY 05/05/21 09/12/21 History (formulary)] Acetaminophen Tab [Tylenol] 325 mg PO Q6HR PRN 06/10/21 09/12/21 History Cholecalciferol [Vitamin D3 (25 25 mcg PO DAILY 06/10/21 09/12/21 History Mcg = 1000 Iu)] Cranberry Fruit Concentrate [Azo 250 mg PO HS 06/10/21 09/12/21 History Cranberry] Dicyclomine HCl 10 mg PO Q6H PRN 06/10/21 09/12/21 History Fluticasone Propionate [Flovent 1 puff INHALATION RT-BID 06/10/21 09/12/21 History Hfa 110 mcg] Topiramate [Topamax] 25 mg PO HS 06/10/21 09/12/21 History Mag Hydrox/Al Hydrox/Simeth 20 ml PO QID ml 06/25/21 09/12/21 Rx [Maalox] DULoxetine HCL [Cymbalta] 30 mg PO BID 09/12/21 09/12/21 History Fluticasone Nasal [place] [Flonase 1 spray EA NOSTRIL BID 09/12/21 09/12/21 History Nasal [place]] Gabapentin [Neurontin] 400 mg PO TID 09/12/21 09/12/21 History Guaifenesin/Dextromethorphan 5 ml PO Q4H PRN 09/12/21 09/12/21 History [guaiFENesin DM] HYDROcodone/APAP 7.5-325MG [Arjay 1 tab PO Q4H 09/12/21 09/12/21 History 7.5-325] Primidone 250 mg PO HS 09/12/21 09/12/21 History glipiZIDE [Glucotrol] 2.5 mg PO DAILY 09/12/21 09/12/21 History ondansetron HCL [Zofran Oral Soln] 4 mg PO Q6H PRN 09/12/21 09/12/21 History Allergies Allergy/AdvReac Type Severity Reaction Status Date / Time enoxaparin sodium Allergy Unknown RED LUMPS Verified 09/12/21 23:16 [From Lovenox] ON ABDOMEN AT INJECTION SITES erythromycin base Allergy Unknown Rash/Hives Verified 09/12/21 23:16 latex Allergy Unknown Itching Verified 09/12/21 23:16 adhesive Allergy Rash/Hives Verified 09/12/21 23:16 morphine Allergy Rash/Hives Verified 09/12/21 23:16 pioglitazone [From Actos] Allergy Swelling Verified 09/12/21 23:16 Sulfa (Sulfonamide Allergy Anaphylaxis Verified 09/12/21 23:16 Antibiotics) tetracycline [Tetracycline] Allergy Rash/Hives Verified 09/12/21 23:16 metformin AdvReac Diarrhea Verified 09/12/21 23:16 Physical Exam Vitals: Vital Signs Temp Pulse Resp BP Pulse Ox 09/13/21 13:22 72 18 122/59 98 09/13/21 10:00 101.7 F H 73 18 128/64 98 09/13/21 07:53 73 18 126/58 97 09/13/21 07:41 102.3 F H 75 18 124/56 96 09/13/21 06:23 73 19 126/53 96 09/13/21 05:38 72 21 132/57 97 09/13/21 03:22 75 17 125/71 98 09/12/21 23:59 99.3 F 73 16 101/54 89 L Intake and Output 09/12/21 09/13/21 09/13/21 22:59 06:59 14:59 Other: Weight 90.718 kg GENERAL DESCRIPTION: An elderly female lying in bed, no distress. No tachypnea or accessory muscle of respiration use. HEENT: Shows Pallor , no scleral icterus. Oral mucous membrane is dry. No pharyngeal erythema or thrush NECK: Trachea central, no thyromegaly. LUNGS: Unlabored breathing. Decreased The Base. No wheeze or crackle. HEART: S1, S2, regular rate and rhythm. No loud murmur ABDOMEN: Soft, no tenderness , guarding or rigidity, no organomegaly EXTREMITIES: No edema of feet. Right foot wound is completely healed no swelling or redness SKIN: No rash, no masses palpable. NEUROLOGICAL: The patient is sleepy lethargic orientation could not be determined Results CBC & Chem 7: 09/13/21 11:16 09/13/21 11:16 Labs: Abnormal Lab Results - Last 24 Hours (Table) 09/12/21 09/12/21 09/12/21 Range/Units 23:05 23:05 23:05 WBC 12.5 H (3.8-10.6) k/uL RBC 3.79 L (3.80-5.40) m/uL MCHC (31.0-37.0) g/dL Plt Count 103 L (150-450) k/uL Neutrophils # 11.0 H (1.3-7.7) k/uL Lymphocytes # 0.7 L (1.0-4.8) k/uL Sodium 131 L (137-145) mmol/L BUN 42 H (7-17) mg/dL Creatinine 1.38 H (0.52-1.04) mg/dL Glucose 184 H (74-99) mg/dL POC Glucose (mg/dL) (75-99) mg/dL Calcium 7.8 L (8.4-10.2) mg/dL Magnesium 2.4 H (1.6-2.3) mg/dL AST 66 H (14-36) U/L ALT 61 H (4-34) U/L Troponin I 0.091 H* (0.000-0.034) ng/mL Total Protein 5.6 L (6.3-8.2) g/dL Albumin 3.2 L (3.5-5.0) g/dL TSH 5.330 H (0.465-4.680) mIU/L Urine Appearance (Clear) Urine Protein (Negative) Urine Blood (Negative) Ur Leukocyte Esterase (Negative) Urine RBC (0-5) /hpf Urine WBC (0-5) /hpf Uric Acid Crystals (None) /hpf Urine Bacteria (None) /hpf Urine Mucus (None) /hpf 09/13/21 09/13/21 09/13/21 Range/Units 02:29 10:21 11:16 WBC (3.8-10.6) k/uL RBC (3.80-5.40) m/uL MCHC 30.6 L (31.0-37.0) g/dL Plt Count 86 L (150-450) k/uL Neutrophils # 9.0 H (1.3-7.7) k/uL Lymphocytes # 0.6 L (1.0-4.8) k/uL Sodium (137-145) mmol/L BUN (7-17) mg/dL Creatinine (0.52-1.04) mg/dL Glucose (74-99) mg/dL POC Glucose (mg/dL) 154 H (75-99) mg/dL Calcium (8.4-10.2) mg/dL Magnesium (1.6-2.3) mg/dL AST (14-36) U/L ALT (4-34) U/L Troponin I (0.000-0.034) ng/mL Total Protein (6.3-8.2) g/dL Albumin (3.5-5.0) g/dL TSH (0.465-4.680) mIU/L Urine Appearance Cloudy H (Clear) Urine Protein 3+ H (Negative) Urine Blood Small H (Negative) Ur Leukocyte Esterase Large H (Negative) Urine RBC 8 H (0-5) /hpf Urine WBC 66 H (0-5) /hpf Uric Acid Crystals Occasional H (None) /hpf Urine Bacteria Rare H (None) /hpf Urine Mucus Rare H (None) /hpf 09/13/21 Range/Units 11:16 WBC (3.8-10.6) k/uL RBC (3.80-5.40) m/uL MCHC (31.0-37.0) g/dL Plt Count (150-450) k/uL Neutrophils # (1.3-7.7) k/uL Lymphocytes # (1.0-4.8) k/uL Sodium 136 L (137-145) mmol/L BUN 34 H (7-17) mg/dL Creatinine 1.23 H (0.52-1.04) mg/dL Glucose 175 H (74-99) mg/dL POC Glucose (mg/dL) (75-99) mg/dL Calcium 8.0 L (8.4-10.2) mg/dL Magnesium (1.6-2.3) mg/dL AST 61 H (14-36) U/L ALT 60 H (4-34) U/L Troponin I (0.000-0.034) ng/mL Total Protein 6.0 L (6.3-8.2) g/dL Albumin 3.4 L (3.5-5.0) g/dL TSH (0.465-4.680) mIU/L Urine Appearance (Clear) Urine Protein (Negative) Urine Blood (Negative) Ur Leukocyte Esterase (Negative) Urine RBC (0-5) /hpf Urine WBC (0-5) /hpf Uric Acid Crystals (None) /hpf Urine Bacteria (None) /hpf Urine Mucus (None) /hpf Microbiology - Last 24 Hours (Table) 09/13/21 02:29 Urine Culture - Preliminary Urine,Voided Assessment and Plan (1) Fever Current Visit: Yes Status: Acute Code(s): R50.9 - FEVER, UNSPECIFIED SNOMED Code(s): 136172718 Plan: 1patient presented to hospital with fever and mental status changes concerning for possible urinary source in this patient currently with no other obvious focus clinically not behaving as pneumonia abdominal postoperative examination and the patient right foot wound is currently healed with no evidence of any cellulitis. 2Rocephin 2 g daily to continue while waiting for the culture to finalize. 3gentle IV fluid. We will follow on clinical condition and cultures to further adjust medication if needed Thank you for this consultation will follow this patient along with you Time with Patient: Greater than 30
[2021-09-14] MEDS ORDERED: ACETAMINOPHEN IV (For NPO) 1,000 MG in EMPTY BAG 1 BAG IVPB SCH
[2021-09-14] MEDS: HYDROcodone/APAP 7.5-325MG 1 EACH TAB PO SCH ×6 (01:29→21:00)
[2021-09-14] MEDS: ACETAMINOPHEN IV (For NPO) 1,000 MG in EMPTY BAG 1 BAG IVPB SCH ×3 (02:47→17:21)
[2021-09-14 06:24] LABS: Glucose,Whole Blood 152 mg/dL (75-99)
[2021-09-14] MEDS: LEVOTHYROXINE 75 MCG TAB PO SCH (06:43)
[2021-09-14] MEDS: INSULIN ASPART (NovoLOG) 100 UNIT/ML VIAL SQ SCH ×4 (06:45→21:01)
[2021-09-14] MEDS: SODIUM CHLORIDE 0.9% 1,000 ML IV SCH ×2 (06:46→21:01)
[2021-09-14] MEDS: LOPERAMIDE 2 MG CAP PO SCH (07:54)
[2021-09-14] MEDS: MAG HYDROX/AL HYDROX/SIMETH 30 ML CUP PO SCH ×4 (07:55→20:49)
[2021-09-14 08:28] LABS: ALT 46 U/L (4-34); AST 44 U/L (14-36); African American GFR (CKD) 85 (>60 ml/min/1.73 sqM); Albumin 2.8 g/dL (3.5-5.0); Albumin/Globulin Ratio 1.1; Alkaline Phosphatase 96 U/L (38-126); Anion Gap 6 mmol/L; Blood Urea Nitrogen 25 mg/dL (7-17); Calcium 7.8 mg/dL (8.4-10.2); Carbon Dioxide 22 mmol/L (22-30); Chloride 108 mmol/L (98-107); Globulin 2.5 g/dL; Glucose 180 mg/dL (74-99); Non-African American GFR(CKD) 74 (>60 ml/min/1.73 sqM); Sodium 136 mmol/L (137-145); Total Bilirubin 0.5 mg/dL (0.2-1.3); Total Protein 5.3 g/dL (6.3-8.2)
[2021-09-14 08:32] LABS: Basophils % (A) 0 %; Eosinophils % (A) 0 %; HCT 33.9 % (34.0-46.0); HGB 10.4 gm/dL (11.4-16.0); Lymphocytes # (A) 0.5 k/uL (1.0-4.8); Lymphocytes % (A) 7 %; MCHC 30.8 g/dL (31.0-37.0); MCV 97.3 fL (80.0-100.0); Mean Platelet Volume 7.4; Monocytes # (A) 0.4 k/uL (0-1.0); Monocytes % (A) 5 %; Neutrophils # (A) 5.9 k/uL (1.3-7.7); Neutrophils % (A) 85 %; RBC 3.48 m/uL (3.80-5.40); RDW 12.9 % (11.5-15.5)
[2021-09-14 08:46] LABS: Platelet Count 76 k/uL (150-450)
[2021-09-14] MEDS: FLUTICASONE 110 MCG INHALER INHALATION SCH ×2 (09:07→19:18)
--- NOTE | 2021-09-14 09:39 | CT ---
EXAMINATION TYPE: CT abdomen pelvis wo con DATE OF EXAM: 09/14/2021 COMPARISON: 06/25/2021 HISTORY: Diarrhea CT DLP: 940.8 mGycm Automated exposure control for dose reduction was used. TECHNIQUE: Helical acquisition of images was performed from the lung bases through the pelvis. FINDINGS: There is a partially consolidative infiltrate in the left lung base with a small left pleural effusio n. There is mild atelectasis in the right lung base. There are surgical absence of gallbladder no biliary ductal dilatation. There is no organomegaly of the liver, pancreas, spleen or adrenal glands. There is a 3.6 mm nonobstructing right renal calcification. There are no left renal calcifications. T here is no hydronephrosis bilaterally. The caliber of the abdominal aorta is normal and there is no r etroperitoneal adenopathy or hemorrhage. The bowel loops are normal in caliber is no evidence of obstruction. No inflammatory changes are iden tified in the mesentery and there is no free intraperitoneal air or fluid. There is no pelvic mass, free fluid, abscess or adenopathy. There are surgical absence of the uterus. There are bilateral hip prosthesis otherwise the osseous structures are intact.. IMPRESSION: 1. Left lower lobe infiltrate with small effusion. The findings suggest the possibility of left lower lobe pneumonia. 2. Single small nonobstructing right renal calcification. 3. Cholecystectomy and hysterectomy.
[2021-09-14] MEDS: FAMOTIDINE 20 MG TAB PO SCH (10:16)
[2021-09-14] MEDS: CHOLECALCIFEROL 25 MCG (1000 IU) TABLET PO SCH (10:16)
[2021-09-14] MEDS: GABAPENTIN 400 MG CAP PO SCH ×3 (10:16→21:00)
[2021-09-14] MEDS: MULTIVITAMINS, THERA 1 EACH TAB PO SCH (10:16)
[2021-09-14] MEDS: DULoxetine HCL 30 MG CAPSULE.DR PO SCH ×2 (10:17→21:00)
[2021-09-14] MEDS: APIXABAN 2.5 MG TABLET PO SCH ×2 (10:17→21:00)
[2021-09-14 11:59] LABS: Glucose,Whole Blood 205 mg/dL (75-99)
[2021-09-14] MEDS: FLUTICASONE 50MCG/SPRAY NASAL 16GM EA NOSTRIL SCH ×2 (12:51→21:01)
[2021-09-14] MEDS: VANCOMYCIN 125 MG CAPSULE PO SCH ×3 (12:51→21:00)
--- NOTE | 2021-09-14 14:08 | P.PN ---
Subjective Progress Note Date: 09/14/21 This is a 71 year old female with past medical history significant for COPD, Diabetes, DVT, thyroid, MRSA infection. She presents to the from rehab with concern for altered mental status and fever. There is also concern for UTI. Chest Xray showing mild atelectasis at the lung base which is increased. Ur inalysis was completed showing cloudy urine, proteinuria, small blood, large luekocyte esterase, 66 WBC. She is confused and lethargic at the time of examination. She is arousable with touch. Denies chest pain, shortness of breath. She denies abdominal pain. She is a poor historian. She was recently discharged from this facility in June of this year where she underwent excision of bursa right foot and partial 5th toe metatarsal head resection of the right foot secondary to osteomyelitis and cellulitis of her right foot and cultures were positive for MRSA at that time. Labs showing white count 12.5, sodium 131, BUN 42, creatinine 1.38, glucose is 180, TSH 5.330. Concern for UTI with sepsis as her procalcitonin level is 19.10. She has been started on IV ceftriaxone empirically and infectious disease has been consulted. Her T-max since admission is 102.3 axillary and she continues to be febrile. Her troponin was found to be elevated at 0.091 and proBNP 1890. There is no history of heart failure. She will also be admitted with telemetry monitoring and trend troponin levels. 09/14/2021 Patient continued with acute confusion and was febrile throughout the evening. She was started on IV vancomycin with concern for sepsis. Per nursing staff patient had a large amount of diarrhea, no reports of blood. She was upgraded to the steopdown unit. Abdominal pelvis CT was ordered with oral contrast however patient could not tolerate oral contrast per nursing. It was completed this morning again without oral contrast showing left lower lobe infiltrate with small effusion findings suggestive possibly of left lower lobe pneumonia, there is single nonobstructing right renal calcification, small, there is cholecystectomy and hysterectomy. No evidence of retroperitoneal adenopathy or hemorrhage, no evidence for hydronephrosis, no inflammatory changes in the mesentery. Stool was found to be positive for C. diff, IV vancomycin was discontinued patient is now on oral vancomycin. Pending urine culture, preliminary blood culture showing gram-negative bacilli. She has infectious dis ease consultation and also continues on IV ceftriaxone empirically. Blood cultures repeated today. Her mentation has improved she is now alert x 2-3 and answer questions appropriately. T-max 101 throughout the evening, she is afebrile, heart rate 64, blood pressure 160/76, she is 98% on 2 L nasal cannula. Labs today show white count 7.0, hemoglobin 10.4, sodium 136, chloride 108, BUN 25, creatinine 0.80, blood glucose in the 180s, calcium 7.8. Liver enzymes are improving AST 44, ALT 46. Review of Systems Constitutional: Denied any fatigue denied any fever. Cardio vascular: denied any chest pain, palpitations Gastrointestinal: denied any nausea, vomiting. Reports diarrhea, denies blood in stool. Pulmonary: Denied any shortness of breath cough Neurologic denied any new focal deficits All inpatient medications were reviewed and appropriate changes in these medications as dictated in the interval history and assessment and plan. PHYSICAL EXAMINATION: GENERAL: The patient is alert and oriented x2-3, appropriate. Well developed, well nourished. HEENT: Pupils are round and equally reacting to light. EOMI. No scleral icterus. No conjunctival pallor. Normocephalic, atraumatic. No pharyngeal erythema. No thyromegaly. CARDIOVASCULAR: S1 and S2 present. No murmurs, rubs, or gallops. PULMONARY: Chest is Diminished ABDOMEN: Soft, nontender, nondistended, normoactive bowel sounds. No palpable organomegaly. MUSCULOSKELETAL: No joint swelling or deformity. EXTREMITIES: No cyanosis, clubbing, or pedal edema. Trace ankle edema NEUROLOGICAL: Gross neurological examination did not reveal any focal deficits. SKIN: No rashes. Assessment and Plan Assessment Fever with sepsis most likely UTI, on IV ceftriaxone with infectious disease consultation, Gram Negative bacteremia pending final cultures C. Dif Colitis has been started on oral vancomycin Leukocytosis secondary to above, improved Acute metabolic and toxic encephalopathy from dehydration and UTI, improving Hyponatremia, hypovolemic secondary to dehydration improved with IV fluids Acute kidney injury mostly prerenal patient is dehydrated on admission, poor oral intake, has resolved with IV hydration Troponin leak from sepsis, EKG completed Decreased platelet count, will monitor trends Elevated LFT's most likely from sepsis, improving History of UTI with MDRO Recent 5th toe resection secondary to osteomyelitis/cellulitis of right foot treated with IV vanco outpatient History COPD not in acute exacerbation Diabetes mellitus type 2 with hyperglycemia Hypertension Thyroid disorder with TSH 5 this admission Gastroesophageal Reflux Disease History DVT on eliquis GI Prophylaxis Full Code Plan This is a 71 year old female admitted with concerns for fever and sepsis. Infectious disease consult Continue patient on empiric antibiotic coverage Has been started on oral vancomycin Follow up labs in AM PT/OT consultation Discharge plan back to rehab when medically stable The impression and plan of care has been dictated by Hodan Dominguez, Nurse Practitioner as directed. Dr. Ramana MD I have performed a history and physical examination and medical decision making of this patient, discussed the same with the dictator, and agree with the dictators assessment and plan as written, documented as a scribe. Based on total visit time, I have performed more than 50% of this visit. Objective - Vital Signs Vital signs: Vital Signs Temp 99.1 F 09/14/21 03:35 Pulse 60 09/14/21 03:35 Resp 14 09/14/21 03:35 BP 114/51 09/14/21 03:35 Pulse Ox 93 L 09/14/21 03:35 FiO2 Intake & Output 09/13/21 09/14/21 09/14/21 18:59 06:59 18:59 Output Total 600 Balance -600 Weight 90.718 kg 92.5 kg Output: Urine 600 Straight 600 Other: Voiding Method Diaper Incontinent External Catheter # Voids 0 # Bowel Movements 2 - Labs CBC & Chem 7: 09/14/21 07:52 09/14/21 07:52 Labs: Abnormal Lab Results - Last 24 Hours (Table) 09/13/21 09/13/21 09/13/21 Range/Units 11:16 11:16 11:16 RBC (3.80-5.40) m/uL Hgb (11.4-16.0) gm/dL Hct (34.0-46.0) % MCHC 30.6 L (31.0-37.0) g/dL Plt Count 86 L (150-450) k/uL Neutrophils # 9.0 H (1.3-7.7) k/uL Lymphocytes # 0.6 L (1.0-4.8) k/uL Sodium 136 L (137-145) mmol/L Chloride (98-107) mmol/L BUN 34 H (7-17) mg/dL Creatinine 1.23 H (0.52-1.04) mg/dL Glucose 175 H (74-99) mg/dL POC Glucose (mg/dL) (75-99) mg/dL Calcium 8.0 L (8.4-10.2) mg/dL AST 61 H (14-36) U/L ALT 60 H (4-34) U/L Troponin I (0.000-0.034) ng/mL Total Protein 6.0 L (6.3-8.2) g/dL Albumin 3.4 L (3.5-5.0) g/dL Procalcitonin 19.10 H (0.02-0.09) ng/mL C. difficile (EIA) Intrp (Negative) 09/13/21 09/13/21 09/13/21 Range/Units 17:16 18:18 21:47 RBC (3.80-5.40) m/uL Hgb (11.4-16.0) gm/dL Hct (34.0-46.0) % MCHC (31.0-37.0) g/dL Plt Count (150-450) k/uL Neutrophils # (1.3-7.7) k/uL Lymphocytes # (1.0-4.8) k/uL Sodium (137-145) mmol/L Chloride (98-107) mmol/L BUN (7-17) mg/dL Creatinine (0.52-1.04) mg/dL Glucose (74-99) mg/dL POC Glucose (mg/dL) 360 H 180 H (75-99) mg/dL Calcium (8.4-10.2) mg/dL AST (14-36) U/L ALT (4-34) U/L Troponin I 0.099 H* (0.000-0.034) ng/mL Total Protein (6.3-8.2) g/dL Albumin (3.5-5.0) g/dL Procalcitonin (0.02-0.09) ng/mL C. difficile (EIA) Intrp (Negative) 09/13/21 09/14/21 09/14/21 Range/Units 22:20 06:00 06:03 RBC (3.80-5.40) m/uL Hgb (11.4-16.0) gm/dL Hct (34.0-46.0) % MCHC (31.0-37.0) g/dL Plt Count (150-450) k/uL Neutrophils # (1.3-7.7) k/uL Lymphocytes # (1.0-4.8) k/uL Sodium (137-145) mmol/L Chloride (98-107) mmol/L BUN (7-17) mg/dL Creatinine (0.52-1.04) mg/dL Glucose (74-99) mg/dL POC Glucose (mg/dL) 152 H (75-99) mg/dL Calcium (8.4-10.2) mg/dL AST (14-36) U/L ALT (4-34) U/L Troponin I 0.079 H* (0.000-0.034) ng/mL Total Protein (6.3-8.2) g/dL Albumin (3.5-5.0) g/dL Procalcitonin (0.02-0.09) ng/mL C. difficile (EIA) Intrp Positive A (Negative) 09/14/21 09/14/21 Range/Units 07:52 07:52 RBC 3.48 L (3.80-5.40) m/uL Hgb 10.4 L (11.4-16.0) gm/dL Hct 33.9 L (34.0-46.0) % MCHC 30.8 L (31.0-37.0) g/dL Plt Count 76 L (150-450) k/uL Neutrophils # (1.3-7.7) k/uL Lymphocytes # 0.5 L (1.0-4.8) k/uL Sodium 136 L (137-145) mmol/L Chloride 108 H (98-107) mmol/L BUN 25 H (7-17) mg/dL Creatinine (0.52-1.04) mg/dL Glucose 180 H (74-99) mg/dL POC Glucose (mg/dL) (75-99) mg/dL Calcium 7.8 L (8.4-10.2) mg/dL AST 44 H (14-36) U/L ALT 46 H (4-34) U/L Troponin I (0.000-0.034) ng/mL Total Protein 5.3 L (6.3-8.2) g/dL Albumin 2.8 L (3.5-5.0) g/dL Procalcitonin (0.02-0.09) ng/mL C. difficile (EIA) Intrp (Negative) Microbiology - Last 24 Hours (Table) 09/13/21 06:15 Blood Culture - Final Blood 09/13/21 06:00 Blood Culture - Final Blood 09/13/21 06:15 Blood Culture Gram Stain - Preliminary Blood 09/13/21 06:00 Blood Culture Gram Stain - Preliminary Blood 09/13/21 02:29 Urine Culture - Preliminary Urine,Voided Assessment and Plan Time with Patient: Less than 30
[2021-09-14 16:47] LABS: Glucose,Whole Blood 143 mg/dL (75-99)
[2021-09-14 20:32] LABS: Glucose,Whole Blood 190 mg/dL (75-99)
[2021-09-14] MEDS: PRIMIDONE 250 MG TAB PO SCH (21:00)
[2021-09-14] MEDS: MECLIZINE 12.5 MG TAB PO SCH (21:00)
[2021-09-14] MEDS: TOPIRAMATE 25 MG TAB PO SCH (21:00)
[2021-09-14] MEDS: ZINC SULFATE 220 MG CAP PO SCH (21:00)
[2021-09-15] MEDS: HYDROcodone/APAP 7.5-325MG 1 EACH TAB PO SCH ×3 (00:32→09:39)
[2021-09-15 05:59] LABS: Glucose,Whole Blood 158 mg/dL (75-99)
[2021-09-15] MEDS: LEVOTHYROXINE 88 MCG TAB PO SCH (06:41)
[2021-09-15] MEDS: INSULIN ASPART (NovoLOG) 100 UNIT/ML VIAL SQ SCH ×4 (06:41→21:05)
[2021-09-15 07:59] LABS: Basophils # (A) 0.1 k/uL (0-0.2); Basophils % (A) 1 %; Eosinophils % (A) 0 %; HCT 35.2 % (34.0-46.0); Lymphocytes # (A) 0.9 k/uL (1.0-4.8); Lymphocytes % (A) 10 %; MCH 30.2 pg (25.0-35.0); MCHC 31.3 g/dL (31.0-37.0); MCV 96.5 fL (80.0-100.0); Mean Platelet Volume 7.3; Monocytes # (A) 0.5 k/uL (0-1.0); Monocytes % (A) 6 %; Neutrophils # (A) 6.8 k/uL (1.3-7.7); Neutrophils % (A) 78 %; RBC 3.65 m/uL (3.80-5.40); RDW 12.7 % (11.5-15.5); WBC 8.6 k/uL (3.8-10.6)
[2021-09-15 08:00] LABS: Platelet Count 84 k/uL (150-450)
[2021-09-15] MEDS: FLUTICASONE 110 MCG INHALER INHALATION SCH ×2 (08:00→19:47)
[2021-09-15 08:02] LABS: ALT 47 U/L (4-34); AST 38 U/L (14-36); African American GFR (CKD) >90 (>60 ml/min/1.73 sqM); Albumin 2.9 g/dL (3.5-5.0); Alkaline Phosphatase 124 U/L (38-126); Anion Gap 8 mmol/L; Blood Urea Nitrogen 15 mg/dL (7-17); Calcium 8.3 mg/dL (8.4-10.2); Carbon Dioxide 19 mmol/L (22-30); Chloride 106 mmol/L (98-107); Glucose 157 mg/dL (74-99); Magnesium 1.7 mg/dL (1.6-2.3); Non-African American GFR(CKD) 87 (>60 ml/min/1.73 sqM); Potassium 3.6 mmol/L (3.5-5.1); Sodium 133 mmol/L (137-145); Total Bilirubin 0.5 mg/dL (0.2-1.3); Total Protein 5.6 g/dL (6.3-8.2)
[2021-09-15] MEDS ORDERED: Magnesium Replacement Protocol 1 EACH MISC MISCELLANE PRN (09:19)
[2021-09-15] MEDS ORDERED: POTASSIUM CHLORIDE ER 20 MEQ TAB.ER PO STA (09:20)
[2021-09-15] MEDS: MULTIVITAMINS, THERA 1 EACH TAB PO SCH (09:38)
[2021-09-15] MEDS: CHOLECALCIFEROL 25 MCG (1000 IU) TABLET PO SCH (09:38)
[2021-09-15] MEDS: MAG HYDROX/AL HYDROX/SIMETH 30 ML CUP PO SCH ×4 (09:38→21:04)
[2021-09-15] MEDS: VANCOMYCIN 125 MG CAPSULE PO SCH ×4 (09:38→21:04)
[2021-09-15] MEDS: DULoxetine HCL 30 MG CAPSULE.DR PO SCH ×2 (09:38→21:04)
[2021-09-15] MEDS: APIXABAN 2.5 MG TABLET PO SCH ×2 (09:38→21:05)
[2021-09-15] MEDS: FAMOTIDINE 20 MG TAB PO SCH (09:38)
[2021-09-15] MEDS: GABAPENTIN 400 MG CAP PO SCH ×3 (09:38→21:04)
[2021-09-15] MEDS: FLUTICASONE 50MCG/SPRAY NASAL 16GM EA NOSTRIL SCH ×2 (09:39→21:05)
[2021-09-15] MEDS: MAGNESIUM SULFATE-D5W PMX 1 GM in DEXTROSE/WATER 1 100ML.BAG IVPB SCH ×2 (09:41→09:42)
[2021-09-15] MEDS ORDERED: HYDROcodone/APAP 7.5-325MG 1 EACH TAB PO PRN (11:24)
[2021-09-15] MEDS: SODIUM CHLORIDE 0.9% 1,000 ML IV SCH ×2 (11:25→21:04)
[2021-09-15 11:49] LABS: Glucose,Whole Blood 204 mg/dL (75-99)
--- NOTE | 2021-09-15 15:56 | P.PN ---
Subjective Progress Note Date: 09/15/21 This is a 71 year old female with past medical history significant for COPD, Diabetes, DVT, thyroid, MRSA infection. She presents to the from rehab with concern for altered mental status and fever. There is also concern for UTI. Chest Xray showing mild atelectasis at the lung base which is increased. Ur inalysis was completed showing cloudy urine, proteinuria, small blood, large luekocyte esterase, 66 WBC. She is confused and lethargic at the time of examination. She is arousable with touch. Denies chest pain, shortness of breath. She denies abdominal pain. She is a poor historian. She was recently discharged from this facility in June of this year where she underwent excision of bursa right foot and partial 5th toe metatarsal head resection of the right foot secondary to osteomyelitis and cellulitis of her right foot and cultures were positive for MRSA at that time. Labs showing white count 12.5, sodium 131, BUN 42, creatinine 1.38, glucose is 180, TSH 5.330. Concern for UTI with sepsis as her procalcitonin level is 19.10. She has been started on IV ceftriaxone empirically and infectious disease has been consulted. Her T-max since admission is 102.3 axillary and she continues to be febrile. Her troponin was found to be elevated at 0.091 and proBNP 1890. There is no history of heart failure. She will also be admitted with telemetry monitoring and trend troponin levels. 09/14/2021 Patient continued with acute confusion and was febrile throughout the evening. She was started on IV vancomycin with concern for sepsis. Per nursing staff patient had a large amount of diarrhea, no reports of blood. She was upgraded to the steopdown unit. Abdominal pelvis CT was ordered with oral contrast however patient could not tolerate oral contrast per nursing. It was completed this morning again without oral contrast showing left lower lobe infiltrate with small effusion findings suggestive possibly of left lower lobe pneumonia, there is single nonobstructing right renal calcification, small, there is cholecystectomy and hysterectomy. No evidence of retroperitoneal adenopathy or hemorrhage, no evidence for hydronephrosis, no inflammatory changes in the mesentery. Stool was found to be positive for C. diff, IV vancomycin was discontinued patient is now on oral vancomycin. Pending urine culture, preliminary blood culture showing gram-negative bacilli. She has infectious dis ease consultation and also continues on IV ceftriaxone empirically. Blood cultures repeated today. Her mentation has improved she is now alert x 2-3 and answer questions appropriately. T-max 101 throughout the evening, she is afebrile, heart rate 64, blood pressure 160/76, she is 98% on 2 L nasal cannula. Labs today show white count 7.0, hemoglobin 10.4, sodium 136, chloride 108, BUN 25, creatinine 0.80, blood glucose in the 180s, calcium 7.8. Liver enzymes are improving AST 44, ALT 46. 09/15/2021 Patient evaluated today resting in bed. Mentation has worsened since yesterday she is alert x 1. She continues on IV ceftriaxone 2 gms and oral vancomycin. Urine culture showing proteus, her blood culture showing gram negative bacilli and repeat blood cultures have been done daily. Infectious disease is following the patient. Casper has been discontinued for now, she continues on oral tylenol for pain. She is afebrile today, heart rate 93, blood pressure 164/76, 94% on room air. She denies nausea, vomiting, abdomen is nontender today. No white count, hgb 11.0, sodium 133, potassium 3.6, magnesium 1.7, liver enzymes stable. We will replace electrolytes. Review of Systems Constitutional: Denied any fatigue denied any fever. Cardio vascular: denied any chest pain, palpitations Gastrointestinal: denied any nausea, vomiting. Reports diarrhea, denies blood in stool. Pulmonary: Denied any shortness of breath cough Neurologic denied any new focal deficits All inpatient medications were reviewed and appropriate changes in these medications as dictated in the interval history and assessment and plan. PHYSICAL EXAMINATION: GENERAL: The patient is alert and oriented x2-3, appropriate. Well developed, well nourished. HEENT: Pupils are round and equally reacting to light. EOMI. No scleral icterus. No conjunctival pallor. Normocephalic, atraumatic. No pharyngeal erythema. No th yromegaly. CARDIOVASCULAR: S1 and S2 present. No murmurs, rubs, or gallops. PULMONARY: Chest is Diminished ABDOMEN: Soft, nontender, nondistended, normoactive bowel sounds. No palpable organomegaly. MUSCULOSKELETAL: No joint swelling or deformity. EXTREMITIES: No cyanosis, clubbing, or pedal edema. Trace ankle edema NEUROLOGICAL: Gross neurological examination did not reveal any focal deficits. SKIN: No rashes. Assessment and Plan Assessment Fever with sepsis most likely UTI, on IV ceftriaxone with infectious disease consultation Gram Negative bacteremia pending final cultures C. Dif Colitis has been started on oral vancomycin Leukocytosis secondary to above, improved Acute metabolic and toxic encephalopathy from dehydration and UTI, sepsis Hyponatremia, hypovolemic secondary to dehydration improved with IV fluids Acute kidney injury mostly prerenal patient is dehydrated on admission, poor oral intake, has resolved with IV hydration Troponin leak from sepsis, EKG completed Decreased platelet count, will monitor trends Elevated LFT's most likely from sepsis, improving History of UTI with MDRO Recent 5th toe resection secondary to osteomyelitis/cellulitis of right foot treated with IV vanco outpatient History COPD not in acute exacerbation Diabetes mellitus type 2 with hyperglycemia Hypertension Thyroid disorder with TSH 5 this admission Gastroesophageal Reflux Disease History DVT on eliquis GI Prophylaxis Full Code Plan This is a 71 year old female admitted with concerns for fever and sepsis. Infectious disease consult Continue patient on empiric antibiotic coverage Has been started on oral vancomycin Continue IV fluids Follow up labs in AM Repeat procalcitonin PT/OT consultation Discharge plan back to rehab when medically stable The impression and plan of care has been dictated by Hodan Dominguez, Nurse Practitioner as directed. Dr. Ramana MD I have performed a history and physical examination and medical decision making of this patient, discussed the same with the dictator, and agree with the dictators assessment and plan as written, documented as a scribe. Based on total visit time, I have performed more than 50% of this visit. Objective - Vital Signs Vital signs: Vital Signs Temp 97.9 F 09/15/21 11:40 Pulse 93 09/15/21 11:40 Resp 16 09/15/21 11:40 BP 164/76 09/15/21 11:40 Pulse Ox 94 L 09/15/21 11:40 FiO2 Intake & Output 09/14/21 09/15/21 09/15/21 18:59 06:59 18:59 Intake Total 360 Balance 360 Intake: Oral 360 Other: Voiding Method Diaper Diaper Diaper Incontinent External Catheter # Voids 1 3 1 # Bowel Movements 1 3 1 - Labs CBC & Chem 7: 09/15/21 07:12 09/15/21 07:12 Labs: Abnormal Lab Results - Last 24 Hours (Table) 09/14/21 09/14/21 09/15/21 Range/Units 16:44 20:17 05:49 RBC (3.80-5.40) m/uL Hgb (11.4-16.0) gm/dL Plt Count (150-450) k/uL Lymphocytes # (1.0-4.8) k/uL Sodium (137-145) mmol/L Carbon Dioxide (22-30) mmol/L Glucose (74-99) mg/dL POC Glucose (mg/dL) 143 H 190 H 158 H (75-99) mg/dL Calcium (8.4-10.2) mg/dL AST (14-36) U/L ALT (4-34) U/L Total Protein (6.3-8.2) g/dL Albumin (3.5-5.0) g/dL 09/15/21 09/15/21 09/15/21 Range/Units 07:12 07:12 11:48 RBC 3.65 L (3.80-5.40) m/uL Hgb 11.0 L (11.4-16.0) gm/dL Plt Count 84 L (150-450) k/uL Lymphocytes # 0.9 L (1.0-4.8) k/uL Sodium 133 L (137-145) mmol/L Carbon Dioxide 19 L (22-30) mmol/L Glucose 157 H (74-99) mg/dL POC Glucose (mg/dL) 204 H (75-99) mg/dL Calcium 8.3 L (8.4-10.2) mg/dL AST 38 H (14-36) U/L ALT 47 H (4-34) U/L Total Protein 5.6 L (6.3-8.2) g/dL Albumin 2.9 L (3.5-5.0) g/dL Microbiology - Last 24 Hours (Table) 09/13/21 02:29 Urine Culture - Final Urine,Voided Proteus mirabilis 09/13/21 06:00 Blood Culture Gram Stain - Preliminary Blood Blood Culture - Preliminary 09/13/21 06:15 Blood Culture Gram Stain - Preliminary Blood Blood Culture - Preliminary Gram Neg Bacilli Assessment and Plan Time with Patient: Less than 30
[2021-09-15 16:15] LABS: Glucose,Whole Blood 135 mg/dL (75-99)
[2021-09-15 20:25] LABS: Glucose,Whole Blood 169 mg/dL (75-99)
[2021-09-15] MEDS: MECLIZINE 12.5 MG TAB PO SCH (21:04)
[2021-09-15] MEDS: ZINC SULFATE 220 MG CAP PO SCH (21:04)
[2021-09-15] MEDS: TOPIRAMATE 25 MG TAB PO SCH (21:04)
[2021-09-15] MEDS: PRIMIDONE 250 MG TAB PO SCH (21:04)
[2021-09-16 06:18] LABS: Glucose,Whole Blood 141 mg/dL (75-99)
[2021-09-16] MEDS: INSULIN ASPART (NovoLOG) 100 UNIT/ML VIAL SQ SCH ×4 (06:21→20:40)
[2021-09-16] MEDS: LEVOTHYROXINE 75 MCG TAB PO SCH (06:21)
--- NOTE | 2021-09-16 07:06 | P.PN ---
Subjective Progress Note Date: 09/14/21 Principal diagnosis: Bacteremic and C. diff colitis Patient is a 71-year-old female was brought into the ER for evaluation of mental status changes patient did have a fever with evidence of gram-negative bacteremia and UTI also have significant diarrhea stool for C. diff came back negative CT abdominal pelvis done without contrast did not show any abnormality. On today's evaluation that is 09/14/2021, the patient is afebrile patient is slightly more awake and alert today, the patient is breathing comfortably, patient denies having any chest pain or shortness of cough no significant abdominal pain still having some diarrhea and no vomiting Objective - Vital Signs Vital signs: Vital Signs Temp 99.1 F 09/14/21 03:35 Pulse 60 09/14/21 03:35 Resp 14 09/14/21 03:35 BP 114/51 09/14/21 03:35 Pulse Ox 93 L 09/14/21 03:35 FiO2 Intake & Output 09/13/21 09/14/21 09/14/21 18:59 06:59 18:59 Output Total 600 Balance -600 Weight 90.718 kg 92.5 kg Output: Urine 600 Straight 600 Other: Voiding Method Diaper Incontinent External Catheter # Voids 0 # Bowel Movements 2 - Exam GENERAL DESCRIPTION: An elderly female lying in bed in no distress RESPIRATORY SYSTEM: Unlabored breathing , decreased breath sounds at bases HEART: S1 S2 regular rate and rhythm , ABDOMEN: Soft , no tenderness EXTREMITIES: No edema feet - Labs CBC & Chem 7: 09/15/21 07:12 09/15/21 07:12 Labs: Abnormal Lab Results - Last 24 Hours (Table) 09/13/21 09/13/21 09/13/21 Range/Units 11:16 11:16 11:16 RBC (3.80-5.40) m/uL Hgb (11.4-16.0) gm/dL Hct (34.0-46.0) % MCHC 30.6 L (31.0-37.0) g/dL Plt Count 86 L (150-450) k/uL Neutrophils # 9.0 H (1.3-7.7) k/uL Lymphocytes # 0.6 L (1.0-4.8) k/uL Sodium 136 L (137-145) mmol/L Chloride (98-107) mmol/L BUN 34 H (7-17) mg/dL Creatinine 1.23 H (0.52-1.04) mg/dL Glucose 175 H (74-99) mg/dL POC Glucose (mg/dL) (75-99) mg/dL Calcium 8.0 L (8.4-10.2) mg/dL AST 61 H (14-36) U/L ALT 60 H (4-34) U/L Troponin I (0.000-0.034) ng/mL Total Protein 6.0 L (6.3-8.2) g/dL Albumin 3.4 L (3.5-5.0) g/dL Procalcitonin 19.10 H (0.02-0.09) ng/mL C. difficile (EIA) Intrp (Negative) 09/13/21 09/13/21 09/13/21 Range/Units 17:16 18:18 21:47 RBC (3.80-5.40) m/uL Hgb (11.4-16.0) gm/dL Hct (34.0-46.0) % MCHC (31.0-37.0) g/dL Plt Count (150-450) k/uL Neutrophils # (1.3-7.7) k/uL Lymphocytes # (1.0-4.8) k/uL Sodium (137-145) mmol/L Chloride (98-107) mmol/L BUN (7-17) mg/dL Creatinine (0.52-1.04) mg/dL Glucose (74-99) mg/dL POC Glucose (mg/dL) 360 H 180 H (75-99) mg/dL Calcium (8.4-10.2) mg/dL AST (14-36) U/L ALT (4-34) U/L Troponin I 0.099 H* (0.000-0.034) ng/mL Total Protein (6.3-8.2) g/dL Albumin (3.5-5.0) g/dL Procalcitonin (0.02-0.09) ng/mL C. difficile (EIA) Intrp (Negative) 09/13/21 09/14/21 09/14/21 Range/Units 22:20 06:00 06:03 RBC (3.80-5.40) m/uL Hgb (11.4-16.0) gm/dL Hct (34.0-46.0) % MCHC (31.0-37.0) g/dL Plt Count (150-450) k/uL Neutrophils # (1.3-7.7) k/uL Lymphocytes # (1.0-4.8) k/uL Sodium (137-145) mmol/L Chloride (98-107) mmol/L BUN (7-17) mg/dL Creatinine (0.52-1.04) mg/dL Glucose (74-99) mg/dL POC Glucose (mg/dL) 152 H (75-99) mg/dL Calcium (8.4-10.2) mg/dL AST (14-36) U/L ALT (4-34) U/L Troponin I 0.079 H* (0.000-0.034) ng/mL Total Protein (6.3-8.2) g/dL Albumin (3.5-5.0) g/dL Procalcitonin (0.02-0.09) ng/mL C. difficile (EIA) Intrp Positive A (Negative) 09/14/21 09/14/21 Range/Units 07:52 07:52 RBC 3.48 L (3.80-5.40) m/uL Hgb 10.4 L (11.4-16.0) gm/dL Hct 33.9 L (34.0-46.0) % MCHC 30.8 L (31.0-37.0) g/dL Plt Count 76 L (150-450) k/uL Neutrophils # (1.3-7.7) k/uL Lymphocytes # 0.5 L (1.0-4.8) k/uL Sodium 136 L (137-145) mmol/L Chloride 108 H (98-107) mmol/L BUN 25 H (7-17) mg/dL Creatinine (0.52-1.04) mg/dL Glucose 180 H (74-99) mg/dL POC Glucose (mg/dL) (75-99) mg/dL Calcium 7.8 L (8.4-10.2) mg/dL AST 44 H (14-36) U/L ALT 46 H (4-34) U/L Troponin I (0.000-0.034) ng/mL Total Protein 5.3 L (6.3-8.2) g/dL Albumin 2.8 L (3.5-5.0) g/dL Procalcitonin (0.02-0.09) ng/mL C. difficile (EIA) Intrp (Negative) Microbiology - Last 24 Hours (Table) 09/13/21 06:15 Blood Culture - Final Blood 09/13/21 06:00 Blood Culture - Final Blood 09/13/21 06:15 Blood Culture Gram Stain - Preliminary Blood 09/13/21 06:00 Blood Culture Gram Stain - Preliminary Blood 09/13/21 02:29 Urine Culture - Preliminary Urine,Voided Assessment and Plan (1) Fever Current Visit: Yes Status: Acute Code(s): R50.9 - FEVER, UNSPECIFIED SNOMED Code(s): 543592376 Plan: 1patient presented to hospital with fever and mental status changes concerning for possible urinary source in this patient currently with no other obvious focus clinically not behaving as pneumonia abdominal postoperative examination and the patient right foot wound is currently healed with no evidence of any cellulitis. 2Rocephin 2 g daily to continue while waiting for the culture to finalize. 3 patient has been started on oral vancomycin to cover for the C. diff Time with Patient: Less than 30
--- NOTE | 2021-09-16 07:08 | P.PN ---
Subjective Progress Note Date: 09/15/21 Principal diagnosis: Bacteremic and C. diff colitis Patient is a 71-year-old female was brought into the ER for evaluation of mental status changes patient did have a fever with evidence of gram-negative bacteremia and UTI also have significant diarrhea stool for C. diff came back negative CT abdominal pelvis done without contrast did not show any abnormality. On today's evaluation that is 09/15/2021, the patient remains to be afebrile patient is more awake and alert, the patient is breathing comfortably on nasal cannula oxygen, patient denies having any chest pain or shortness of cough, patient denies having abdominal pain and diarrhea has slowed down Objective - Vital Signs Vital signs: Vital Signs Temp 97.9 F 09/15/21 11:40 Pulse 93 09/15/21 11:40 Resp 16 09/15/21 11:40 BP 164/76 09/15/21 11:40 Pulse Ox 94 L 09/15/21 11:40 FiO2 Intake & Output 09/14/21 09/15/21 09/15/21 18:59 06:59 18:59 Intake Total 360 Balance 360 Intake: Oral 360 Other: Voiding Method Diaper Diaper Diaper Incontinent External Catheter # Voids 1 3 1 # Bowel Movements 1 3 1 - Exam GENERAL DESCRIPTION: An elderly female lying in bed in no distress RESPIRATORY SYSTEM: Unlabored breathing , decreased breath sounds at bases HEART: S1 S2 regular rate and rhythm , ABDOMEN: Soft , no tenderness EXTREMITIES: No edema feet - Labs CBC & Chem 7: 09/15/21 07:12 09/15/21 07:12 Labs: Abnormal Lab Results - Last 24 Hours (Table) 09/14/21 09/14/21 09/15/21 Range/Units 16:44 20:17 05:49 RBC (3.80-5.40) m/uL Hgb (11.4-16.0) gm/dL Plt Count (150-450) k/uL Lymphocytes # (1.0-4.8) k/uL Sodium (137-145) mmol/L Carbon Dioxide (22-30) mmol/L Glucose (74-99) mg/dL POC Glucose (mg/dL) 143 H 190 H 158 H (75-99) mg/dL Calcium (8.4-10.2) mg/dL AST (14-36) U/L ALT (4-34) U/L Total Protein (6.3-8.2) g/dL Albumin (3.5-5.0) g/dL 09/15/21 09/15/21 09/15/21 Range/Units 07:12 07:12 11:48 RBC 3.65 L (3.80-5.40) m/uL Hgb 11.0 L (11.4-16.0) gm/dL Plt Count 84 L (150-450) k/uL Lymphocytes # 0.9 L (1.0-4.8) k/uL Sodium 133 L (137-145) mmol/L Carbon Dioxide 19 L (22-30) mmol/L Glucose 157 H (74-99) mg/dL POC Glucose (mg/dL) 204 H (75-99) mg/dL Calcium 8.3 L (8.4-10.2) mg/dL AST 38 H (14-36) U/L ALT 47 H (4-34) U/L Total Protein 5.6 L (6.3-8.2) g/dL Albumin 2.9 L (3.5-5.0) g/dL Microbiology - Last 24 Hours (Table) 09/13/21 02:29 Urine Culture - Final Urine,Voided Proteus mirabilis 09/13/21 06:00 Blood Culture Gram Stain - Preliminary Blood Blood Culture - Preliminary 09/13/21 06:15 Blood Culture Gram Stain - Preliminary Blood Blood Culture - Preliminary Gram Neg Bacilli Assessment and Plan (1) Fever Current Visit: Yes Status: Acute Code(s): R50.9 - FEVER, UNSPECIFIED SNOMED Code(s): 991798225 Plan: 1patient presented to hospital with fever and mental status changes concerning for possible urinary source in this patient currently with no other obvious focus clinically not behaving as pneumonia abdominal postoperative examination and the patient right foot wound is currently healed with no evidence of any cellulitis. 2patient urine has been finalized with Proteus S blood cultures final pending patient to continue with Rocephin 2 g daily 3 patient with C. diff colitis to continue with oral vancomycin Time with Patient: Less than 30
[2021-09-16] MEDS: FLUTICASONE 110 MCG INHALER INHALATION SCH ×2 (07:49→19:37)
[2021-09-16] MEDS: VANCOMYCIN 125 MG CAPSULE PO SCH ×4 (08:45→22:33)
[2021-09-16] MEDS: DULoxetine HCL 30 MG CAPSULE.DR PO SCH ×2 (08:46→20:40)
[2021-09-16] MEDS: GABAPENTIN 400 MG CAP PO SCH ×3 (08:46→20:40)
[2021-09-16] MEDS: MULTIVITAMINS, THERA 1 EACH TAB PO SCH (08:46)
[2021-09-16] MEDS: FAMOTIDINE 20 MG TAB PO SCH (08:46)
[2021-09-16] MEDS: CHOLECALCIFEROL 25 MCG (1000 IU) TABLET PO SCH (08:46)
[2021-09-16] MEDS: APIXABAN 2.5 MG TABLET PO SCH ×2 (08:46→20:40)
[2021-09-16] MEDS: MAG HYDROX/AL HYDROX/SIMETH 30 ML CUP PO SCH ×4 (08:46→20:39)
[2021-09-16] MEDS: FLUTICASONE 50MCG/SPRAY NASAL 16GM EA NOSTRIL SCH ×2 (08:47→20:40)
[2021-09-16 09:52] LABS: HCT 36.9 % (34.0-46.0); HGB 11.7 gm/dL (11.4-16.0); MCH 30.4 pg (25.0-35.0); MCHC 31.7 g/dL (31.0-37.0); MCV 96.1 fL (80.0-100.0); Mean Platelet Volume 7.9; Platelet Count 106 k/uL (150-450); RBC 3.84 m/uL (3.80-5.40); RDW 12.8 % (11.5-15.5); WBC 8.9 k/uL (3.8-10.6)
[2021-09-16 09:57] LABS: ALT 40 U/L (4-34); AST 33 U/L (14-36); African American GFR (CKD) >90 (>60 ml/min/1.73 sqM); Alkaline Phosphatase 116 U/L (38-126); Anion Gap 11 mmol/L; Blood Urea Nitrogen 13 mg/dL (7-17); Calcium 8.2 mg/dL (8.4-10.2); Carbon Dioxide 20 mmol/L (22-30); Chloride 102 mmol/L (98-107); Glucose 167 mg/dL (74-99); Magnesium 1.9 mg/dL (1.6-2.3); Non-African American GFR(CKD) 85 (>60 ml/min/1.73 sqM); Potassium 3.8 mmol/L (3.5-5.1); Sodium 133 mmol/L (137-145); Total Bilirubin 0.6 mg/dL (0.2-1.3); Total Protein 5.8 g/dL (6.3-8.2)
[2021-09-16 10:30] LABS: Lymphocytes # (M) 1.34 k/uL (1.0-4.8); Neutrophils # (M) 6.76 k/uL (1.3-7.7); Neutrophils % (M) 76 %; Nucleated Red Blood Cells 0 /100 WBC (0-0); Total Cells Counted 100
[2021-09-16 10:31] LABS: RBC Morphology Normal
[2021-09-16 11:38] LABS: Glucose,Whole Blood 145 mg/dL (75-99)
[2021-09-16 16:39] LABS: Glucose,Whole Blood 202 mg/dL (75-99)
[2021-09-16 19:29] LABS: Glucose,Whole Blood 208 mg/dL (75-99)
[2021-09-16] MEDS: TOPIRAMATE 25 MG TAB PO SCH (20:40)
[2021-09-16] MEDS: ZINC SULFATE 220 MG CAP PO SCH (20:40)
[2021-09-16] MEDS: SODIUM CHLORIDE 0.9% 1,000 ML IV SCH (20:41)
[2021-09-16] MEDS: MECLIZINE 12.5 MG TAB PO SCH (20:42)
[2021-09-16] MEDS: PRIMIDONE 250 MG TAB PO SCH (20:42)
--- NOTE | 2021-09-16 23:53 | P.PN ---
Subjective Progress Note Date: 09/16/21 This is a 71 year old female with past medical history significant for COPD, Diabetes, DVT, thyroid, MRSA infection. She presents to the from rehab with concern for altered mental status and fever. There is also concern for UTI. Chest Xray showing mild atelectasis at the lung base which is increased. Ur inalysis was completed showing cloudy urine, proteinuria, small blood, large luekocyte esterase, 66 WBC. She is confused and lethargic at the time of examination. She is arousable with touch. Denies chest pain, shortness of breath. She denies abdominal pain. She is a poor historian. She was recently discharged from this facility in June of this year where she underwent excision of bursa right foot and partial 5th toe metatarsal head resection of the right foot secondary to osteomyelitis and cellulitis of her right foot and cultures were positive for MRSA at that time. Labs showing white count 12.5, sodium 131, BUN 42, creatinine 1.38, glucose is 180, TSH 5.330. Concern for UTI with sepsis as her procalcitonin level is 19.10. She has been started on IV ceftriaxone empirically and infectious disease has been consulted. Her T-max since admission is 102.3 axillary and she continues to be febrile. Her troponin was found to be elevated at 0.091 and proBNP 1890. There is no history of heart failure. She will also be admitted with telemetry monitoring and trend troponin levels. 09/14/2021 Patient continued with acute confusion and was febrile throughout the evening. She was started on IV vancomycin with concern for sepsis. Per nursing staff patient had a large amount of diarrhea, no reports of blood. She was upgraded to the steopdown unit. Abdominal pelvis CT was ordered with oral contrast however patient could not tolerate oral contrast per nursing. It was completed this morning again without oral contrast showing left lower lobe infiltrate with small effusion findings suggestive possibly of left lower lobe pneumonia, there is single nonobstructing right renal calcification, small, there is cholecystectomy and hysterectomy. No evidence of retroperitoneal adenopathy or hemorrhage, no evidence for hydronephrosis, no inflammatory changes in the mesentery. Stool was found to be positive for C. diff, IV vancomycin was discontinued patient is now on oral vancomycin. Pending urine culture, preliminary blood culture showing gram-negative bacilli. She has infectious dis ease consultation and also continues on IV ceftriaxone empirically. Blood cultures repeated today. Her mentation has improved she is now alert x 2-3 and answer questions appropriately. T-max 101 throughout the evening, she is afebrile, heart rate 64, blood pressure 160/76, she is 98% on 2 L nasal cannula. Labs today show white count 7.0, hemoglobin 10.4, sodium 136, chloride 108, BUN 25, creatinine 0.80, blood glucose in the 180s, calcium 7.8. Liver enzymes are improving AST 44, ALT 46. 09/15/2021 Patient evaluated today resting in bed. Mentation has worsened since yesterday she is alert x 1. She continues on IV ceftriaxone 2 gms and oral vancomycin. Urine culture showing proteus, her blood culture showing gram negative bacilli and repeat blood cultures have been done daily. Infectious disease is following the patient. [place] has been discontinued for now, she continues on oral tylenol for pain. She is afebrile today, heart rate 93, blood pressure 164/76, 94% on room air. She denies nausea, vomiting, abdomen is nontender today. No white count, hgb 11.0, sodium 133, potassium 3.6, magnesium 1.7, liver enzymes stable. We will replace electrolytes. 09/16/2021 Patient evaluated today resting in bed. She is alert x 3 today, she does complain of abdominal pain and discomfort mostly mid abdomen. She is not tender to palpation. Reports 5 liquid bowel movements throughout the night and she has 2 more today so far. No blood reported in the stool. She is being treated for proteus UTI and blood cultures today are positive for proteus miribilis as well. She is also being treated for C.Dif colitis as well with oral vanco. We will add zofran today. She continues on rocephin 2 grams and continues on IV fluids. She is being followed by infectious disease. Labs today showing white count 8.9, platelets 106, sodium 133, potassium 3.8, blood glucose in the 200s, magnesium 1.9. Temp of 97.6, blood pressure 146/66, 96% room air. Review of Systems Constitutional: Denied any fatigue denied any fever. Cardio vascular: denied any chest pain, palpitations Gastrointestinal: denied any nausea, vomiting. Reports diarrhea, denies blood in stool. Pulmonary: Denied any shortness of breath cough Neurologic denied any new focal deficits All inpatient medications were reviewed and appropriate changes in these medications as dictated in the interval history and assessment and plan. PHYSICAL EXAMINATION: GENERAL: The patient is alert and oriented x2-3, appropriate. Well developed, well nourished. HEENT: Pupils are round and equally reacting to light. EOMI. No scleral icterus. No conjunctival pallor. Normocephalic, atraumatic. No pharyngeal erythema. No thyromegaly. CARDIOVASCULAR: S1 and S2 present. No murmurs, rubs, or gallops. PULMONARY: Chest is Diminished ABDOMEN: Soft, nontender, nondistended, normoactive bowel sounds. No palpable organomegaly. MUSCULOSKELETAL: No joint swelling or deformity. EXTREMITIES: No cyanosis, clubbing, or pedal edema. Trace ankle edema NEUROLOGICAL: Gross neurological examination did not reveal any focal deficits. SKIN: No rashes. Assessment and Plan Assessment Fever with sepsis, patient has proteus UTI, on IV ceftriaxone with infectious disease consultation Proteus Miribilis bacteremia C. Dif Colitis has been started on oral vancomycin Leukocytosis secondary to above, resolved Acute metabolic and toxic encephalopathy from dehydration and UTI, sepsis, improving Hyponatremia, hypovolemic secondary to dehydration improved with IV fluids Acute kidney injury mostly prerenal patient is dehydrated on admission, poor oral intake, has resolved with IV hydration Troponin leak from sepsis, EKG completed Decreased platelet count, will monitor trends Elevated LFT's most likely from sepsis, improving History of UTI with MDRO Recent 5th toe resection secondary to osteomyelitis/cellulitis of right foot treated with IV vanco outpatient History COPD not in acute exacerbation Diabetes mellitus type 2 with hyperglycemia Hypertension Thyroid disorder with TSH 5 this admission Gastroesophageal Reflux Disease History DVT on eliquis GI Prophylaxis Full Code Plan This is a 71 year old female admitted with concerns for fever and sepsis. Infectious disease consult Continue patient on empiric antibiotic coverage Has been started on oral vancomycin Continue IV fluids Follow up labs in AM PT/OT consultation Discharge plan back to rehab when medically stable The impression and plan of care has been dictated by Hodan Dominguez Nurse Practitioner as directed. Dr. Ramana MD I have performed a history and physical examination and medical decision making of this patient, discussed the same with the dictator, and agree with the dictators assessment and plan as written, documented as a scribe. Based on total visit time, I have performed more than 50% of this visit. Objective - Vital Signs Vital signs: Vital Signs Temp 98.8 F 09/16/21 08:13 Pulse 62 09/16/21 08:13 Resp 20 09/16/21 08:13 BP 148/67 09/16/21 08:13 Pulse Ox 96 09/16/21 08:13 FiO2 Intake & Output 09/15/21 09/16/21 09/16/21 18:59 06:59 18:59 Intake Total 120 480 Output Total 650 650 220 Balance -530 -170 -220 Intake: Oral 120 480 Output: Urine 650 650 220 Other: Voiding Method Diaper Diaper Diaper External Catheter External Catheter # Voids 1 # Bowel Movements 1 2 - Labs CBC & Chem 7: 09/16/21 08:58 09/16/21 08:58 Labs: Abnormal Lab Results - Last 24 Hours (Table) 09/15/21 09/15/21 09/15/21 Range/Units 07:12 16:14 20:23 Plt Count (150-450) k/uL Sodium (137-145) mmol/L Carbon Dioxide (22-30) mmol/L Glucose (74-99) mg/dL POC Glucose (mg/dL) 135 H 169 H (75-99) mg/dL Calcium (8.4-10.2) mg/dL ALT (4-34) U/L Total Protein (6.3-8.2) g/dL Albumin (3.5-5.0) g/dL Procalcitonin 5.60 H (0.02-0.09) ng/mL 09/16/21 09/16/21 09/16/21 Range/Units 06:12 08:58 08:58 Plt Count 106 L (150-450) k/uL Sodium 133 L (137-145) mmol/L Carbon Dioxide 20 L (22-30) mmol/L Glucose 167 H (74-99) mg/dL POC Glucose (mg/dL) 141 H (75-99) mg/dL Calcium 8.2 L (8.4-10.2) mg/dL ALT 40 H (4-34) U/L Total Protein 5.8 L (6.3-8.2) g/dL Albumin 3.0 L (3.5-5.0) g/dL Procalcitonin (0.02-0.09) ng/mL 09/16/21 Range/Units 11:35 Plt Count (150-450) k/uL Sodium (137-145) mmol/L Carbon Dioxide (22-30) mmol/L Glucose (74-99) mg/dL POC Glucose (mg/dL) 145 H (75-99) mg/dL Calcium (8.4-10.2) mg/dL ALT (4-34) U/L Total Protein (6.3-8.2) g/dL Albumin (3.5-5.0) g/dL Procalcitonin (0.02-0.09) ng/mL Microbiology - Last 24 Hours (Table) 09/15/21 07:12 Blood Culture - Preliminary Blood No Growth after 24 hours 09/14/21 13:47 Blood Culture - Preliminary Blood No Growth after 24 hours 09/14/21 13:47 Blood Culture - Preliminary Blood No Growth after 24 hours 09/13/21 02:29 Urine Culture - Final Urine,Voided Proteus mirabilis Assessment and Plan Time with Patient: Less than 30
[2021-09-17] MEDS: ONDANSETRON 4 MG/2 ML VIAL IVP PRN ×3 (03:41→22:59)
[2021-09-17 06:04] LABS: Glucose,Whole Blood 183 mg/dL (75-99)
[2021-09-17] MEDS: INSULIN ASPART (NovoLOG) 100 UNIT/ML VIAL SQ SCH ×4 (06:35→22:03)
[2021-09-17] MEDS: LEVOTHYROXINE 88 MCG TAB PO SCH (06:35)
[2021-09-17] MEDS: SODIUM CHLORIDE 0.9% 1,000 ML IV SCH ×2 (06:39→20:34)
[2021-09-17] MEDS: FLUTICASONE 110 MCG INHALER INHALATION SCH ×2 (07:21→19:24)
[2021-09-17] MEDS: DULoxetine HCL 30 MG CAPSULE.DR PO SCH ×2 (08:42→23:07)
[2021-09-17] MEDS: GABAPENTIN 400 MG CAP PO SCH ×3 (08:42→23:07)
[2021-09-17] MEDS: MULTIVITAMINS, THERA 1 EACH TAB PO SCH (08:42)
[2021-09-17] MEDS: CHOLECALCIFEROL 25 MCG (1000 IU) TABLET PO SCH (08:43)
[2021-09-17] MEDS: FAMOTIDINE 20 MG TAB PO SCH (08:43)
[2021-09-17] MEDS: MAG HYDROX/AL HYDROX/SIMETH 30 ML CUP PO SCH ×4 (08:43→22:05)
[2021-09-17] MEDS: APIXABAN 2.5 MG TABLET PO SCH ×2 (08:43→22:03)
[2021-09-17] MEDS: MAGNESIUM OXIDE 400 MG TAB PO SCH (08:43)
[2021-09-17] MEDS: VANCOMYCIN 125 MG CAPSULE PO SCH ×4 (08:44→22:03)
[2021-09-17 09:09] LABS: African American GFR (CKD) >90 (>60 ml/min/1.73 sqM); Anion Gap 10 mmol/L; Blood Urea Nitrogen 10 mg/dL (7-17); Carbon Dioxide 19 mmol/L (22-30); Chloride 104 mmol/L (98-107); Glucose 161 mg/dL (74-99); Non-African American GFR(CKD) 88 (>60 ml/min/1.73 sqM); Sodium 133 mmol/L (137-145)
[2021-09-17 09:11] LABS: Potassium 3.7 mmol/L (3.5-5.1)
[2021-09-17] MEDS: FLUTICASONE 50MCG/SPRAY NASAL 16GM EA NOSTRIL SCH ×2 (10:00→23:07)
[2021-09-17 11:47] LABS: Glucose,Whole Blood 306 mg/dL (75-99)
[2021-09-17] MEDS ORDERED: POTASSIUM CHLORIDE ER 20 MEQ TAB.ER PO STA (14:08)
--- NOTE | 2021-09-17 14:09 | P.PN ---
Subjective Progress Note Date: 09/17/21 This is a 71 year old female with past medical history significant for COPD, Diabetes, DVT, thyroid, MRSA infection. She presents to the from rehab with concern for altered mental status and fever. There is also concern for UTI. Chest Xray showing mild atelectasis at the lung base which is increased. Ur inalysis was completed showing cloudy urine, proteinuria, small blood, large luekocyte esterase, 66 WBC. She is confused and lethargic at the time of examination. She is arousable with touch. Denies chest pain, shortness of breath. She denies abdominal pain. She is a poor historian. She was recently discharged from this facility in June of this year where she underwent excision of bursa right foot and partial 5th toe metatarsal head resection of the right foot secondary to osteomyelitis and cellulitis of her right foot and cultures were positive for MRSA at that time. Labs showing white count 12.5, sodium 131, BUN 42, creatinine 1.38, glucose is 180, TSH 5.330. Concern for UTI with sepsis as her procalcitonin level is 19.10. She has been started on IV ceftriaxone empirically and infectious disease has been consulted. Her T-max since admission is 102.3 axillary and she continues to be febrile. Her troponin was found to be elevated at 0.091 and proBNP 1890. There is no history of heart failure. She will also be admitted with telemetry monitoring and trend troponin levels. 09/14/2021 Patient continued with acute confusion and was febrile throughout the evening. She was started on IV vancomycin with concern for sepsis. Per nursing staff patient had a large amount of diarrhea, no reports of blood. She was upgraded to the steopdown unit. Abdominal pelvis CT was ordered with oral contrast however patient could not tolerate oral contrast per nursing. It was completed this morning again without oral contrast showing left lower lobe infiltrate with small effusion findings suggestive possibly of left lower lobe pneumonia, there is single nonobstructing right renal calcification, small, there is cholecystectomy and hysterectomy. No evidence of retroperitoneal adenopathy or hemorrhage, no evidence for hydronephrosis, no inflammatory changes in the mesentery. Stool was found to be positive for C. diff, IV vancomycin was discontinued patient is now on oral vancomycin. Pending urine culture, preliminary blood culture showing gram-negative bacilli. She has infectious dis ease consultation and also continues on IV ceftriaxone empirically. Blood cultures repeated today. Her mentation has improved she is now alert x 2-3 and answer questions appropriately. T-max 101 throughout the evening, she is afebrile, heart rate 64, blood pressure 160/76, she is 98% on 2 L nasal cannula. Labs today show white count 7.0, hemoglobin 10.4, sodium 136, chloride 108, BUN 25, creatinine 0.80, blood glucose in the 180s, calcium 7.8. Liver enzymes are improving AST 44, ALT 46. 09/15/2021 Patient evaluated today resting in bed. Mentation has worsened since yesterday she is alert x 1. She continues on IV ceftriaxone 2 gms and oral vancomycin. Urine culture showing proteus, her blood culture showing gram negative bacilli and repeat blood cultures have been done daily. Infectious disease is following the patient. [place] has been discontinued for now, she continues on oral tylenol for pain. She is afebrile today, heart rate 93, blood pressure 164/76, 94% on room air. She denies nausea, vomiting, abdomen is nontender today. No white count, hgb 11.0, sodium 133, potassium 3.6, magnesium 1.7, liver enzymes stable. We will replace electrolytes. 09/16/2021 Patient evaluated today resting in bed. She is alert x 3 today, she does complain of abdominal pain and discomfort mostly mid abdomen. She is not tender to palpation. Reports 5 liquid bowel movements throughout the night and she has 2 more today so far. No blood reported in the stool. She is being treated for proteus UTI and blood cultures today are positive for proteus miribilis as well. She is also being treated for C.Dif colitis as well with oral vanco. We will add zofran today. She continues on rocephin 2 grams and continues on IV fluids. She is being followed by infectious disease. Labs today showing white count 8.9, platelets 106, sodium 133, potassium 3.8, blood glucose in the 200s, magnesium 1.9. Temp of 97.6, blood pressure 146/66, 96% room air. 09/17/2021 Patient is resting in bed today, PT/OT on consult she will return to rehab when stable. Blood cultures x 2 positive for proteus repeat is pending, she is continued on IV ceftriaxone and also po vancomcyin and infectious disease consultation. She states that her diarrhea has slowed down and also states improvement in nausea with zofran. Mentation has continued to improve as well. Vital signs today showing a temp of 98.3, heart rate 66, Blood pressure 133/63, 98% room air. Labs today showing sodium 133, potassium 3.7, blood glucose in the 200s. Review of Systems Constitutional: Denied any fatigue denied any fever. Cardio vascular: denied any chest pain, palpitations Gastrointestinal: Denies vomiting. Reports nausea and diarrhea which is improving Pulmonary: Denied any shortness of breath cough Neurologic denied any new focal deficits All inpatient medications were reviewed and appropriate changes in these medications as dictated in the interval history and assessment and plan. PHYSICAL EXAMINATION: GENERAL: The patient is alert and oriented x2-3, appropriate. Well developed, well nourished. HEENT: Pupils are round and equally reacting to light. EOMI. No scleral icterus. No conjunctival pallor. Normocephalic, atraumatic. No pharyngeal erythema. No thyromegaly. CARDIOVASCULAR: S1 and S2 present. No murmurs, rubs, or gallops. PULMONARY: Chest is Diminished ABDOMEN: Soft, nontender, nondistended, normoactive bowel sounds. No palpable organomegaly. MUSCULOSKELETAL: No joint swelling or deformity. EXTREMITIES: No cyanosis, clubbing, or pedal edema. Trace ankle edema NEUROLOGICAL: Gross neurological examination did not reveal any focal deficits. SKIN: No rashes. Assessment and Plan Assessment Fever with sepsis, patient has proteus UTI, on IV ceftriaxone with infectious disease consultation Proteus Miribilis bacteremia C. Dif Colitis has been started on oral vancomycin Leukocytosis secondary to above, resolved Acute metabolic and toxic encephalopathy from dehydration and UTI, sepsis, improving Hyponatremia, hypovolemic secondary to dehydration improved with IV fluids Acute kidney injury mostly prerenal patient is dehydrated on admission, poor oral intake, has resolved with IV hydration Troponin leak from sepsis, EKG completed Decreased platelet count, will monitor trends Elevated LFT's most likely from sepsis, improving History of UTI with MDRO Recent 5th toe resection secondary to osteomyelitis/cellulitis of right foot treated with IV vanco outpatient History COPD not in acute exacerbation Diabetes mellitus type 2 with hyperglycemia Hypertension Thyroid disorder with TSH 5 this admission Gastroesophageal Reflux Disease History DVT on eliquis GI Prophylaxis Full Code Plan This is a 71 year old female admitted with concerns for fever and sepsis. Infectious disease consult Continue patient on empiric antibiotic coverage Has been started on oral vancomycin Continue IV fluids Replace potassium Follow up labs in AM PT/OT consultation Discharge plan back to rehab when medically stable The impression and plan of care has been dictated by Hodan Dominguez, Nurse Practitioner as directed. Dr. Ramana MD I have performed a history and physical examination and medical decision making of this patient, discussed the same with the dictator, and agree with the di ctators assessment and plan as written, documented as a scribe. Based on total visit time, I have performed more than 50% of this visit. Objective - Vital Signs Vital signs: Vital Signs Temp 98.3 F 09/17/21 08:00 Pulse 66 09/17/21 08:00 Resp 18 09/17/21 08:00 BP 133/63 09/17/21 08:00 Pulse Ox 98 09/17/21 08:00 FiO2 Intake & Output 09/16/21 09/17/21 09/17/21 18:59 06:59 18:59 Intake Total 358 250 118 Output Total 220 300 Balance 138 -50 118 Intake: Oral 358 250 118 Output: Urine 220 300 Other: Voiding Method Diaper Diaper Diaper External Catheter External Catheter External Catheter # Voids 0 - Labs CBC & Chem 7: 09/16/21 08:58 09/17/21 08:11 Labs: Abnormal Lab Results - Last 24 Hours (Table) 09/16/21 09/16/21 09/17/21 Range/Units 16:37 19:27 06:02 Sodium (137-145) mmol/L Carbon Dioxide (22-30) mmol/L Glucose (74-99) mg/dL POC Glucose (mg/dL) 202 H 208 H 183 H (75-99) mg/dL Calcium (8.4-10.2) mg/dL 09/17/21 09/17/21 Range/Units 08:11 11:46 Sodium 133 L (137-145) mmol/L Carbon Dioxide 19 L (22-30) mmol/L Glucose 161 H (74-99) mg/dL POC Glucose (mg/dL) 306 H (75-99) mg/dL Calcium 8.0 L (8.4-10.2) mg/dL Microbiology - Last 24 Hours (Table) 09/15/21 07:12 Blood Culture - Preliminary Blood No Growth after 48 hours 09/14/21 13:47 Blood Culture - Preliminary Blood No Growth after 48 hours 09/14/21 13:47 Blood Culture - Preliminary Blood No Growth after 48 hours 09/13/21 06:15 Blood Culture Gram Stain - Final Blood Blood Culture - Final Proteus mirabilis 09/13/21 06:00 Blood Culture Gram Stain - Final Blood Blood Culture - Final Proteus mirabilis Assessment and Plan Time with Patient: Less than 30
[2021-09-17 16:37] LABS: Glucose,Whole Blood 198 mg/dL (70-110)
[2021-09-17] MEDS: ACETAMINOPHEN TAB 325 MG TAB PO PRN (22:03)
[2021-09-17] MEDS: ZINC SULFATE 220 MG CAP PO SCH (22:03)
[2021-09-17] MEDS: MECLIZINE 12.5 MG TAB PO SCH (23:07)
[2021-09-17] MEDS: PRIMIDONE 250 MG TAB PO SCH (23:07)
[2021-09-17] MEDS: TOPIRAMATE 25 MG TAB PO SCH (23:07)
[2021-09-18] MEDS: LEVOTHYROXINE 75 MCG TAB PO SCH (06:21)
[2021-09-18 06:59] LABS: Glucose,Whole Blood 126 mg/dL (70-110)
[2021-09-18] MEDS: INSULIN ASPART (NovoLOG) 100 UNIT/ML VIAL SQ SCH ×4 (07:30→21:24)
[2021-09-18] MEDS: FLUTICASONE 110 MCG INHALER INHALATION SCH ×2 (08:36→19:45)
--- NOTE | 2021-09-18 08:55 | P.PN ---
Subjective Progress Note Date: 09/16/21 Principal diagnosis: Bacteremic and C. diff colitis Patient is a 71-year-old female was brought into the ER for evaluation of mental status changes patient did have a fever with evidence of gram-negative bacteremia and UTI also have significant diarrhea stool for C. diff came back negative CT abdominal pelvis done without contrast did not show any abnormality. On today's evaluation that is 09/16/2021, the patient continues to be afebrile patient is breathing comfortably on nasal cannula oxygen, patient denies having any chest pain or shortness of cough, patient denies having abdominal pain and diarrhea has slowed down Objective - Vital Signs Vital signs: Vital Signs Temp 98.8 F 09/16/21 08:13 Pulse 62 09/16/21 08:13 Resp 20 09/16/21 08:13 BP 148/67 09/16/21 08:13 Pulse Ox 96 09/16/21 08:13 FiO2 Intake & Output 09/15/21 09/16/21 09/16/21 18:59 06:59 18:59 Intake Total 120 480 Output Total 650 650 220 Balance -530 -170 -220 Intake: Oral 120 480 Output: Urine 650 650 220 Other: Voiding Method Diaper Diaper Diaper External Catheter External Catheter # Voids 1 # Bowel Movements 1 2 - Exam GENERAL DESCRIPTION: An elderly female lying in bed in no distress RESPIRATORY SYSTEM: Unlabored breathing , decreased breath sounds at bases HEART: S1 S2 regular rate and rhythm , ABDOMEN: Soft , no tenderness EXTREMITIES: No edema feet - Labs CBC & Chem 7: 09/16/21 08:58 09/17/21 08:11 Labs: Abnormal Lab Results - Last 24 Hours (Table) 09/15/21 09/15/21 09/15/21 Range/Units 07:12 16:14 20:23 Plt Count (150-450) k/uL Sodium (137-145) mmol/L Carbon Dioxide (22-30) mmol/L Glucose (74-99) mg/dL POC Glucose (mg/dL) 135 H 169 H (75-99) mg/dL Calcium (8.4-10.2) mg/dL ALT (4-34) U/L Total Protein (6.3-8.2) g/dL Albumin (3.5-5.0) g/dL Procalcitonin 5.60 H (0.02-0.09) ng/mL 09/16/21 09/16/21 09/16/21 Range/Units 06:12 08:58 08:58 Plt Count 106 L (150-450) k/uL Sodium 133 L (137-145) mmol/L Carbon Dioxide 20 L (22-30) mmol/L Glucose 167 H (74-99) mg/dL POC Glucose (mg/dL) 141 H (75-99) mg/dL Calcium 8.2 L (8.4-10.2) mg/dL ALT 40 H (4-34) U/L Total Protein 5.8 L (6.3-8.2) g/dL Albumin 3.0 L (3.5-5.0) g/dL Procalcitonin (0.02-0.09) ng/mL 09/16/21 Range/Units 11:35 Plt Count (150-450) k/uL Sodium (137-145) mmol/L Carbon Dioxide (22-30) mmol/L Glucose (74-99) mg/dL POC Glucose (mg/dL) 145 H (75-99) mg/dL Calcium (8.4-10.2) mg/dL ALT (4-34) U/L Total Protein (6.3-8.2) g/dL Albumin (3.5-5.0) g/dL Procalcitonin (0.02-0.09) ng/mL Microbiology - Last 24 Hours (Table) 09/15/21 07:12 Blood Culture - Preliminary Blood No Growth after 24 hours 09/14/21 13:47 Blood Culture - Preliminary Blood No Growth after 24 hours 09/14/21 13:47 Blood Culture - Preliminary Blood No Growth after 24 hours 09/13/21 02:29 Urine Culture - Final Urine,Voided Proteus mirabilis Assessment and Plan (1) Fever Current Visit: Yes Status: Acute Code(s): R50.9 - FEVER, UNSPECIFIED SNOMED Code(s): 642037294 Plan: 1patient presented to hospital with fever and mental status changes concerning for possible urinary source in this patient currently with no other obvious focus clinically not behaving as pneumonia abdominal postoperative examination and the patient right foot wound is currently healed with no evidence of any cellulitis. 2patient urine has been finalized with Proteus and blood cultures also finalized with Proteus patient to continue with Rocephin 2 g daily 3 patient with C. diff colitis to continue with oral vancomycin Time with Patient: Less than 30
--- NOTE | 2021-09-18 08:56 | P.PN ---
Subjective Progress Note Date: 09/17/21 Principal diagnosis: Bacteremic and C. diff colitis Patient is a 71-year-old female was brought into the ER for evaluation of mental status changes patient did have a fever with evidence of gram-negative bacteremia and UTI also have significant diarrhea stool for C. diff came back negative CT abdominal pelvis done without contrast did not show any abnormality. On today's evaluation that is 09/17/2021, the patient denies any fever or chills, patient is breathing comfortably on nasal cannula oxygen, patient denies having any chest pain or shortness of cough, patient denies having abdominal pain and no diarrhea per the nursing staff Objective - Vital Signs Vital signs: Vital Signs Temp 98.3 F 09/17/21 08:00 Pulse 66 09/17/21 08:00 Resp 18 09/17/21 08:00 BP 133/63 09/17/21 08:00 Pulse Ox 98 09/17/21 08:00 FiO2 Intake & Output 09/16/21 09/17/21 09/17/21 18:59 06:59 18:59 Intake Total 358 250 118 Output Total 220 300 Balance 138 -50 118 Intake: Oral 358 250 118 Output: Urine 220 300 Other: Voiding Method Diaper Diaper Diaper External Catheter External Catheter External Catheter # Voids 0 - Exam GENERAL DESCRIPTION: An elderly female lying in bed in no distress RESPIRATORY SYSTEM: Unlabored breathing , decreased breath sounds at bases HEART: S1 S2 regular rate and rhythm , ABDOMEN: Soft , no tenderness EXTREMITIES: No edema feet - Labs CBC & Chem 7: 09/16/21 08:58 09/17/21 08:11 Labs: Abnormal Lab Results - Last 24 Hours (Table) 09/16/21 09/16/21 09/17/21 Range/Units 16:37 19:27 06:02 Sodium (137-145) mmol/L Carbon Dioxide (22-30) mmol/L Glucose (74-99) mg/dL POC Glucose (mg/dL) 202 H 208 H 183 H (75-99) mg/dL Calcium (8.4-10.2) mg/dL 09/17/21 09/17/21 Range/Units 08:11 11:46 Sodium 133 L (137-145) mmol/L Carbon Dioxide 19 L (22-30) mmol/L Glucose 161 H (74-99) mg/dL POC Glucose (mg/dL) 306 H (75-99) mg/dL Calcium 8.0 L (8.4-10.2) mg/dL Microbiology - Last 24 Hours (Table) 09/15/21 07:12 Blood Culture - Preliminary Blood No Growth after 48 hours 09/14/21 13:47 Blood Culture - Preliminary Blood No Growth after 48 hours 09/14/21 13:47 Blood Culture - Preliminary Blood No Growth after 48 hours 09/13/21 06:15 Blood Culture Gram Stain - Final Blood Blood Culture - Final Proteus mirabilis 09/13/21 06:00 Blood Culture Gram Stain - Final Blood Blood Culture - Final Proteus mirabilis Assessment and Plan (1) Fever Current Visit: Yes Status: Acute Code(s): R50.9 - FEVER, UNSPECIFIED SNOMED Code(s): 021569794 Plan: 1patient presented to hospital with fever and mental status changes concerning for possible urinary source in this patient currently with no other obvious focus clinically not behaving as pneumonia abdominal postoperative examination and the patient right foot wound is currently healed with no evidence of any cellulitis. 2patient urine has been finalized with Proteus and blood cultures also finalized with Proteus patient currently being treated with Rocephin 2 g daily , we'll transition to Ceftin on discharge 3 patient with C. diff colitis to continue with oral vancomycin Time with Patient: Less than 30
[2021-09-18 11:00] LABS: African American GFR (CKD) 85.4 (60.0-200.0); Anion Gap 11.2 mmol/L (10.00-18.00); BUN/Creat Ratio 8.13 Ratio (12.00-20.00); Blood Urea Nitrogen 6.5 mg/dL (9.0-27.0); Calcium 8.1 mg/dL (8.7-10.3); Carbon Dioxide 21.8 mmol/L (20.0-27.5); Non-African American GFR(CKD) 73.7 (60.0-200.0); Potassium 3.7 mmol/L (3.5-5.5)
[2021-09-18] MEDS: APIXABAN 2.5 MG TABLET PO SCH ×2 (11:23→21:23)
[2021-09-18] MEDS: MAGNESIUM OXIDE 400 MG TAB PO SCH (11:24)
[2021-09-18] MEDS: MULTIVITAMINS, THERA 1 EACH TAB PO SCH (11:25)
[2021-09-18] MEDS: VANCOMYCIN 125 MG CAPSULE PO SCH ×4 (11:26→21:24)
[2021-09-18] MEDS: FAMOTIDINE 20 MG TAB PO SCH (11:27)
[2021-09-18] MEDS: CHOLECALCIFEROL 25 MCG (1000 IU) TABLET PO SCH (11:28)
[2021-09-18] MEDS: MAG HYDROX/AL HYDROX/SIMETH 30 ML CUP PO SCH ×4 (11:28→21:24)
[2021-09-18] MEDS: GABAPENTIN 400 MG CAP PO SCH ×3 (11:28→21:24)
[2021-09-18] MEDS: FLUTICASONE 50MCG/SPRAY NASAL 16GM EA NOSTRIL SCH ×2 (11:29→21:24)
[2021-09-18] MEDS: SODIUM CHLORIDE 0.9% 1,000 ML IV SCH ×2 (11:42→22:32)
[2021-09-18] MEDS: DULoxetine HCL 30 MG CAPSULE.DR PO SCH ×2 (11:47→22:32)
[2021-09-18 11:58] LABS: Glucose,Whole Blood 190 mg/dL (70-110)
--- NOTE | 2021-09-18 12:28 | P.DS ---
Providers Date of admission: 09/14/21 12:13 Attending physician: Esteban Villeda Consults: 09/13/21 14:23 Consult Physician Routine Consulting Provider: Kenyon Fine Consult Reason/Comments: fever Do you want consulting provider notified?: Yes Primary care physician: Tiarra Joel Hospital Course: Final Diagnosis Fever with sepsis, patient has proteus UTI covered with IV ceftriaxone 2 grams while inpatient Proteus Miribilis bacteremia C. 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 She is alert and oriented 3 me ntation is improved. Diarrhea is also resolving. She will continue course of antibiotics with oral Ceftin and oral vancomycin on discharge. Patient has been followed by infectious diseases hospital stay. Repeat BMP and magnesium in 2-3 days and follow-up with outpatient. Hospital Course This is a pleasant 71 female presents from alf with concern for UTI and altered mental status. Patient follows with Dr. oJel and the outpatient setting, past medical history is significant for asthma, CVA, diabetes mellitus, DVT, GERD, hypertension, pneumonia, MRSA section to the right foot status post resection that was treated with IV vancomycin outpatient with PICC line 3 months ago. She presented also with concern for diarrhea. Patient found to have C. diff colitis and has been started on oral vancomycin. Urine culture came back positive for Proteus and urinalysis, blood culture was positive for proteus miribilis x 2 on September 13. Her repeat blood cultures completed on September 14 September 15 and September 17 have been negative so far. On admission she presented with white count 12.5, platelet count of 103, sodium 131, potassium 4.5, BUN 42, creatinine 1.38, glucose 184, calcium 7.8, magnesium 2.4, AST 66, ALT 61, alk phos 101. Lactic acid was 1.9. The troponin elevation at 0.091, 0.099, 0.079. Her proBNP was found to be 1890. TSH was also 5.330, free T4 0.83. Procalcitonin level was found to be 19.10, she has improved and is now down to 5.60. He was started on IV Rocephin 2 g while inpatient and infectious diseases recommended transition to oral Ceftin on discharge. Hospitalization was complicated by altered mentation which was most likely encephalopathy from UTI with sepsis. She is now alert x 3 and appropriate. 09/18/2021 Patient was evaluated today resting in bed during her bed bath. Her buttocks with excoriated also evidence for sacral pressure injury. Her diarrhea has improved she had one episode diarrhea for the evening and one episode at 10 AM today which has becoming more formed is no longer liquid. She can continue with zinc barrier pacer and calmoseptine and also sacral opifoam dressing for this. Her white count has improved is now 8.9, hemoglobin stable at 11.7, platelet count 106. Her most recent molecular panel from today showing a sodium level of 136, potassium 3.7, CO2 21.8, chloride 103, BUN 6.5, creatinine 0.8. Blood glucoses in the 150s, calcium 8.1. Her liver enzymes also improved. She is alert 3 today she is denying chest pain, shortness of breath. Her abdominal nausea and pain has improved. She was given IV zofran while in patient. She denies dysuria, hesitancy. No fever or chills. She denies chest pain, denies shortness of breath. Denies emesis. On assessment her lungs are clear, S1-S2 auscultated, abdomen is soft and nontender she has normoactive bowel sounds. She has no peripheral edema. Her mentation has improved alert 3 focal neurological exam is negative. With clearance from infectious disease patient will be discharged today on oral antibiotic therapy. Please see medication reconciliation for list of current medication. Thank you for allowing us to participate in the care of this patient. The impression and plan of care has been dictated by Hodan Dominguez, Nurse Practitioner as directed. Dr. Ramana MD I have performed a history and physical examination and medical decision making of this patient, discussed the same with the dictator, and agree with the dictators assessment and plan as written, documented as a scribe. Based on total visit time, I have performed more than 50% of this visit. Patient Condition at Discharge: Fair Plan - Discharge Summary Discharge Rx Participant: Yes New Discharge Prescriptions: New HYDROcodone/APAP 5-325MG [Pelham 5-325] 1 tab PO Q6HR PRN 3 Days #12 tab PRN Reason: Pain INSULIN ASPART (NovoLOG) [NovoLOG (formulary)] 0 unit SQ ACHS each Magnesium Oxide [Mag-Ox] 400 mg PO DAILY 14 Days #14 tab Continue Levothyroxine Sodium [Synthroid] 150 mcg PO SUTUTHSA Levothyroxine Sodium [Synthroid] 175 mcg PO MOWEFR Nitroglycerin Sl Tabs [Nitrostat] 0.4 mg SL Q5M PRN PRN Reason: Chest Pain Zinc 50 mg PO HS Meclizine [Antivert] 12.5 mg PO HS Famotidine [Pepcid] 20 mg PO BID@0600,2100 Loperamide HCl [Imodium A-D] 2 mg PO BID Fluticasone Propionate [Flovent Hfa 110 mcg] 1 puff INHALATION RT-BID Mag Hydrox/Al Hydrox/Simeth [Maalox] 20 ml PO QID ml Guaifenesin/Dextromethorphan [guaiFENesin DM] 5 ml PO Q4H PRN PRN Reason: Cough Gabapentin [Neurontin] 400 mg PO TID Fluticasone Nasal Capac [Flonase Nasal Capac] 1 spray EA NOSTRIL BID DULoxetine HCL [Cymbalta] 30 mg PO BID Primidone 250 mg PO HS Apixaban [Eliquis] 2.5 mg PO BID #0 Cyclobenzaprine [Flexeril] 10 mg PO Q12H PRN PRN Reason: Muscle Spasm Melatonin 10 mg PO HS PRN PRN Reason: Insomnia Multivitamins, Thera [Multivitamin (formulary)] 1 tab PO DAILY Cholecalciferol [Vitamin D3 (25 Mcg = 1000 Iu)] 25 mcg PO DAILY Cranberry Fruit Concentrate [Azo Cranberry] 250 mg PO HS Acetaminophen Tab [Tylenol] 325 mg PO Q6HR PRN PRN Reason: Fever And/ Or Pain Topiramate [Topamax] 25 mg PO HS glipiZIDE [Glucotrol] 2.5 mg PO DAILY ondansetron HCL [Zofran Oral Soln] 4 mg PO Q6H PRN PRN Reason: Nausea Discontinued Dicyclomine HCl 10 mg PO Q6H PRN PRN Reason: Pain HYDROcodone/APAP 7.5-325MG [Pelham 7.5-325] 1 tab PO Q4H Discharge Medication List Levothyroxine Sodium [Synthroid] 150 mcg PO SUTUTHSA 10/02/13 [History] Levothyroxine Sodium [Synthroid] 175 mcg PO MOWEFR 10/02/13 [History] Nitroglycerin Sl Tabs [Nitrostat] 0.4 mg SL Q5M PRN 10/02/13 [History] Zinc 50 mg PO HS 02/09/20 [History] Meclizine [Antivert] 12.5 mg PO HS 10/22/20 [History] Apixaban [Eliquis] 2.5 mg PO BID #0 04/29/21 [Rx] Cyclobenzaprine [Flexeril] 10 mg PO Q12H PRN 05/05/21 [History] Famotidine [Pepcid] 20 mg PO BID@0600,2100 05/05/21 [History] Loperamide HCl [Imodium A-D] 2 mg PO BID 05/05/21 [History] Melatonin 10 mg PO HS PRN 05/05/21 [History] Multivitamins, Thera [Multivitamin (formulary)] 1 tab PO DAILY 05/05/21 [History] Acetaminophen Tab [Tylenol] 325 mg PO Q6HR PRN 06/10/21 [History] Cholecalciferol [Vitamin D3 (25 Mcg = 1000 Iu)] 25 mcg PO DAILY 06/10/21 [History] Cranberry Fruit Concentrate [Azo Cranberry] 250 mg PO HS 06/10/21 [History] Fluticasone Propionate [Flovent Hfa 110 mcg] 1 puff INHALATION RT-BID 06/10/21 [History] Topiramate [Topamax] 25 mg PO HS 06/10/21 [History] Mag Hydrox/Al Hydrox/Simeth [Maalox] 20 ml PO QID ml 06/25/21 [Rx] DULoxetine HCL [Cymbalta] 30 mg PO BID 09/12/21 [History] Fluticasone Nasal Capac [Flonase Nasal Capac] 1 spray EA NOSTRIL BID 09/12/21 [History] Gabapentin [Neurontin] 400 mg PO TID 09/12/21 [History] Guaifenesin/Dextromethorphan [guaiFENesin DM] 5 ml PO Q4H PRN 09/12/21 [History] Primidone 250 mg PO HS 09/12/21 [History] glipiZIDE [Glucotrol] 2.5 mg PO DAILY 09/12/21 [History] ondansetron HCL [Zofran Oral Soln] 4 mg PO Q6H PRN 09/12/21 [History] HYDROcodone/APAP 5-325MG [P[place]ham 5-325] 1 tab PO Q6HR PRN 3 Days #12 tab 09/18/21 [Rx] INSULIN ASPART (NovoLOG) [NovoLOG (formulary)] 0 unit SQ ACHS each 09/18/21 [Rx] Magnesium Oxide [Mag-Ox] 400 mg PO DAILY 14 Days #14 tab 09/18/21 [Rx] Follow up Appointment(s)/Referral(s): Tiarra Joel MD [Primary Care Provider] - 1-2 days Kenyon Fine MD [STAFF PHYSICIAN] - 1 Week Ambulatory/Diagnostic Orders: Basic Metabolic Panel [LAB.AMB] Time Frame: 3 Days, Location: None Selected Magnesium [LAB.AMB] Time Frame: 3 Days, Location: None Selected Activity/Diet/Wound Care/Special Instructions: Continue with Zinc Barrier Paste and Calmoseptine to buttock and groin excoriation, cover with sacral optifoam and turn to prevent progression of stage 1 pressure injury to stage 2.. Discharge Disposition: TRANSFER TO SNF/ECF
[2021-09-18 17:08] LABS: Glucose,Whole Blood 199 mg/dL (70-110)
[2021-09-18 20:27] LABS: Glucose,Whole Blood 174 mg/dL (70-110)
[2021-09-18] MEDS: PRIMIDONE 250 MG TAB PO SCH (21:23)
[2021-09-18] MEDS: ZINC SULFATE 220 MG CAP PO SCH (21:24)
[2021-09-18] MEDS: MECLIZINE 12.5 MG TAB PO SCH (21:24)
[2021-09-18] MEDS: TOPIRAMATE 25 MG TAB PO SCH (21:57)
[2021-09-19 06:54] LABS: Glucose,Whole Blood 121 mg/dL (70-110)
[2021-09-19] MEDS: ONDANSETRON 4 MG/2 ML VIAL IVP PRN ×2 (07:11→23:29)
[2021-09-19] MEDS: LEVOTHYROXINE 88 MCG TAB PO SCH (07:11)
[2021-09-19] MEDS: FLUTICASONE 110 MCG INHALER INHALATION SCH ×2 (08:26→20:11)
[2021-09-19] MEDS: INSULIN ASPART (NovoLOG) 100 UNIT/ML VIAL SQ SCH ×4 (09:15→21:57)
[2021-09-19] MEDS: MAGNESIUM OXIDE 400 MG TAB PO SCH (09:16)
[2021-09-19] MEDS: MAG HYDROX/AL HYDROX/SIMETH 30 ML CUP PO SCH ×4 (09:16→21:55)
[2021-09-19] MEDS: FAMOTIDINE 20 MG TAB PO SCH (09:16)
[2021-09-19] MEDS: CHOLECALCIFEROL 25 MCG (1000 IU) TABLET PO SCH (09:16)
[2021-09-19] MEDS: FLUTICASONE 50MCG/SPRAY NASAL 16GM EA NOSTRIL SCH ×2 (09:16→21:57)
[2021-09-19] MEDS: MULTIVITAMINS, THERA 1 EACH TAB PO SCH (09:16)
[2021-09-19] MEDS: APIXABAN 2.5 MG TABLET PO SCH ×2 (09:17→21:57)
[2021-09-19] MEDS: GABAPENTIN 400 MG CAP PO SCH ×3 (09:17→21:57)
[2021-09-19] MEDS: VANCOMYCIN 125 MG CAPSULE PO SCH (09:31)
[2021-09-19] MEDS: DULoxetine HCL 30 MG CAPSULE.DR PO SCH ×2 (09:32→21:57)
[2021-09-19 10:47] LABS: Basophils # (A) 0.1 k/uL (0-0.2); Basophils % (A) 1 %; Eosinophils # (A) 0.1 k/uL (0-0.7); Eosinophils % (A) 1 %; HCT 31.3 % (34.0-46.0); HGB 10.1 gm/dL (11.4-16.0); Hypochromasia Slight; Lymphocytes # (A) 1.2 k/uL (1.0-4.8); Lymphocytes % (A) 14 %; MCH 31.4 pg (25.0-35.0); MCHC 32.1 g/dL (31.0-37.0); MCV 97.8 fL (80.0-100.0); Mean Platelet Volume 7.3; Monocytes # (A) 0.4 k/uL (0-1.0); Monocytes % (A) 4 %; Neutrophils # (A) 6.7 k/uL (1.3-7.7); Neutrophils % (A) 78 %; RDW 13.1 % (11.5-15.5); WBC 8.6 k/uL (3.8-10.6)
[2021-09-19 10:51] LABS: Platelet Count 235 k/uL (150-450)
[2021-09-19 11:05] LABS: African American GFR (CKD) >90 (>60 ml/min/1.73 sqM); Anion Gap 6 mmol/L; Blood Urea Nitrogen 5 mg/dL (7-17); Calcium 7.8 mg/dL (8.4-10.2); Carbon Dioxide 23 mmol/L (22-30); Chloride 104 mmol/L (98-107); Glucose 172 mg/dL (74-99); Non-African American GFR(CKD) >90 (>60 ml/min/1.73 sqM); Sodium 133 mmol/L (137-145)
[2021-09-19 11:34] LABS: Glucose,Whole Blood 166 mg/dL (70-110)
--- NOTE | 2021-09-19 12:32 | P.PN ---
Subjective Progress Note Date: 09/18/21 Principal diagnosis: Bacteremic and C. diff colitis Patient is a 71-year-old female was brought into the ER for evaluation of mental status changes patient did have a fever with evidence of gram-negative bacteremia and UTI also have significant diarrhea stool for C. diff came back negative CT abdominal pelvis done without contrast did not show any abnormality. On today's evaluation that is 09/18/2021, the patient remains to be afebrile, patient is breathing comfortably on nasal cannula oxygen, patient denies having any chest pain or shortness of cough, patient denies having abdominal pain however has been complaining of more diarrhea with 3 episodes this morning Objective - Vital Signs Vital signs: Vital Signs Temp 97.3 F L 09/18/21 14:34 Pulse 61 09/18/21 14:34 Resp 18 09/18/21 14:34 BP 137/65 09/18/21 14:34 Pulse Ox 94 L 09/18/21 14:34 FiO2 Intake & Output 09/17/21 09/18/21 09/18/21 18:59 06:59 18:59 Intake Total 236 592 Output Total 550 300 Balance -314 -300 592 Intake: Oral 236 592 Output: Urine 550 300 Other: Voiding Method Diaper Diaper External Catheter External Catheter - Exam GENERAL DESCRIPTION: An elderly female lying in bed in no distress RESPIRATORY SYSTEM: Unlabored breathing , decreased breath sounds at bases HEART: S1 S2 regular rate and rhythm , ABDOMEN: Soft , no tenderness EXTREMITIES: No edema feet - Labs CBC & Chem 7: 09/19/21 10:20 09/19/21 10:20 Labs: Abnormal Lab Results - Last 24 Hours (Table) 09/17/21 09/18/21 09/18/21 Range/Units 16:36 06:57 07:12 BUN 6.5 L (9.0-27.0) mg/dL BUN/Creatinine Ratio 8.13 L (12.00-20.00) Ratio Glucose 151 H (70-110) mg/dL POC Glucose (mg/dL) 198 H 126 H (70-110) mg/dL Calcium 8.1 L (8.7-10.3) mg/dL 09/18/21 Range/Units 11:57 BUN (9.0-27.0) mg/dL BUN/Creatinine Ratio (12.00-20.00) Ratio Glucose (70-110) mg/dL POC Glucose (mg/dL) 190 H (70-110) mg/dL Calcium (8.7-10.3) mg/dL Microbiology - Last 24 Hours (Table) 09/17/21 08:11 Blood Culture - Preliminary Blood No Growth after 24 hours 09/15/21 07:12 Blood Culture - Preliminary Blood No Growth after 72 hours 09/14/21 13:47 Blood Culture - Preliminary Blood No Growth after 72 hours 09/14/21 13:47 Blood Culture - Preliminary Blood No Growth after 72 hours 09/13/21 06:00 Blood Culture Gram Stain - Final Blood Blood Culture - Final Proteus mirabilis Assessment and Plan (1) Fever Current Visit: Yes Status: Acute Code(s): R50.9 - FEVER, UNSPECIFIED SNOMED Code(s): 357129491 Plan: 1patient presented to hospital with fever and mental status changes concerning for possible urinary source in this patient currently with no other obvious focus clinically not behaving as pneumonia abdominal postoperative examination and the patient right foot wound is currently healed with no evidence of any cellulitis. 2patient urine has been finalized with Proteus and blood cultures also finalized with Proteus patient currently being treated with Rocephin 2 g daily , we'll transition to Ceftin on discharge 3 patient with C. diff colitis to continue with oral vancomycin, however the patient is still having diarrhea we will hold the discharge if no improvement in diarrhea by tomorrow we'll switch her to deficid Time with Patient: Less than 30
[2021-09-19] MEDS: SODIUM CHLORIDE 0.9% 1,000 ML IV SCH ×2 (13:17→15:12)
[2021-09-19] MEDS: FIDAXOMICIN 200 MG TABLET PO SCH ×2 (13:18→21:56)
--- NOTE | 2021-09-19 14:55 | P.PN ---
Subjective Progress Note Date: 09/19/21 This is a 71 year old female with past medical history significant for COPD, Diabetes, DVT, thyroid, MRSA infection. She presents to the from rehab with concern for altered mental status and fever. There is also concern for UTI. Chest Xray showing mild atelectasis at the lung base which is increased. Ur inalysis was completed showing cloudy urine, proteinuria, small blood, large luekocyte esterase, 66 WBC. She is confused and lethargic at the time of examination. She is arousable with touch. Denies chest pain, shortness of breath. She denies abdominal pain. She is a poor historian. She was recently discharged from this facility in June of this year where she underwent excision of bursa right foot and partial 5th toe metatarsal head resection of the right foot secondary to osteomyelitis and cellulitis of her right foot and cultures were positive for MRSA at that time. Labs showing white count 12.5, sodium 131, BUN 42, creatinine 1.38, glucose is 180, TSH 5.330. Concern for UTI with sepsis as her procalcitonin level is 19.10. She has been started on IV ceftriaxone empirically and infectious disease has been consulted. Her T-max since admission is 102.3 axillary and she continues to be febrile. Her troponin was found to be elevated at 0.091 and proBNP 1890. There is no history of heart failure. She will also be admitted with telemetry monitoring and trend troponin levels. 09/14/2021 Patient continued with acute confusion and was febrile throughout the evening. She was started on IV vancomycin with concern for sepsis. Per nursing staff patient had a large amount of diarrhea, no reports of blood. She was upgraded to the steopdown unit. Abdominal pelvis CT was ordered with oral contrast however patient could not tolerate oral contrast per nursing. It was completed this morning again without oral contrast showing left lower lobe infiltrate with small effusion findings suggestive possibly of left lower lobe pneumonia, there is single nonobstructing right renal calcification, small, there is cholecystectomy and hysterectomy. No evidence of retroperitoneal adenopathy or hemorrhage, no evidence for hydronephrosis, no inflammatory changes in the mesentery. Stool was found to be positive for C. diff, IV vancomycin was discontinued patient is now on oral vancomycin. Pending urine culture, preliminary blood culture showing gram-negative bacilli. She has infectious dis ease consultation and also continues on IV ceftriaxone empirically. Blood cultures repeated today. Her mentation has improved she is now alert x 2-3 and answer questions appropriately. T-max 101 throughout the evening, she is afebrile, heart rate 64, blood pressure 160/76, she is 98% on 2 L nasal cannula. Labs today show white count 7.0, hemoglobin 10.4, sodium 136, chloride 108, BUN 25, creatinine 0.80, blood glucose in the 180s, calcium 7.8. Liver enzymes are improving AST 44, ALT 46. 09/15/2021 Patient evaluated today resting in bed. Mentation has worsened since yesterday she is alert x 1. She continues on IV ceftriaxone 2 gms and oral vancomycin. Urine culture showing proteus, her blood culture showing gram negative bacilli and repeat blood cultures have been done daily. Infectious disease is following the patient. Bloomingrose has been discontinued for now, she continues on oral tylenol for pain. She is afebrile today, heart rate 93, blood pressure 164/76, 94% on room air. She denies nausea, vomiting, abdomen is nontender today. No white count, hgb 11.0, sodium 133, potassium 3.6, magnesium 1.7, liver enzymes stable. We will replace electrolytes. 09/16/2021 Patient evaluated today resting in bed. She is alert x 3 today, she does complain of abdominal pain and discomfort mostly mid abdomen. She is not tender to palpation. Reports 5 liquid bowel movements throughout the night and she has 2 more today so far. No blood reported in the stool. She is being treated for proteus UTI and blood cultures today are positive for proteus miribilis as well. She is also being treated for C.Dif colitis as well with oral vanco. We will add zofran today. She continues on rocephin 2 grams and continues on IV fluids. She is being followed by infectious disease. Labs today showing white count 8.9, platelets 106, sodium 133, potassium 3.8, blood glucose in the 200s, magnesium 1.9. Temp of 97.6, blood pressure 146/66, 96% room air. 09/17/2021 Patient is resting in bed today, PT/OT on consult she will return to rehab when stable. Blood cultures x 2 positive for proteus repeat is pending, she is continued on IV ceftriaxone and also po vancomcyin and infectious disease consultation. She states that her diarrhea has slowed down and also states improvement in nausea with zofran. Mentation has continued to improve as well. Vital signs today showing a temp of 98.3, heart rate 66, Blood pressure 133/63, 98% room air. Labs today showing sodium 133, potassium 3.7, blood glucose in the 200s. 09/18/2021 Patient was evaluated today resting in bed during her bed bath. Her buttocks wi th excoriated also evidence for sacral pressure injury. Her diarrhea has improved she had one episode diarrhea for the evening and one episode at 10 AM today which has becoming more formed is no longer liquid. She can continue with zinc barrier pacer and calmoseptine and also sacral opifoam dressing for this. Her white count has improved is now 8.9, hemoglobin stable at 11.7, platelet count 106. Her most recent molecular panel from today showing a sodium level of 136, potassium 3.7, CO2 21.8, chloride 103, BUN 6.5, creatinine 0.8. Blood glucoses in the 150s, calcium 8.1. Her liver enzymes also improved. She is alert 3 today she is denying chest pain, shortness of breath. Her abdominal nausea and pain has improved. She was given IV zofran while in patient. She denies dysuria, hesitancy. No fever or chills. She denies chest pain, denies shortness of breath. Denies emesis. On assessment her lungs are clear, S1-S2 auscultated, abdomen is soft and nontender she has normoactive bowel sounds. She has no peripheral edema. Her mentation has improved alert 3 focal neurological exam is negative. With clearance from infectious disease patient will be discharged today on oral antibiotic therapy. 09/19/2021 Patient unfortuneatly had large loose BM in the evening and a large loose BM this morning. She reports tolerating diet wall, with some nausea. She is continued on IV zofran for this as well as maalox and pepcid. Infectious disease had recommended to keep patient overnight yesterday and as she has had 2 large loose BMs we will recommend keeping patient and cancel discharge. Oral vancomycin has been discontinued and she has been started on 10 days of oral dificid. She is also on IV ceftriaxone 2 grams daily. Blood culture preliminary at 96 hours is showing clearing of proteus bacteremia. She did have T-max 100.1. over night as well. She is on nasal cannula at 3L with saturation 97%, she does state that she wears oxygen as needed at rehab. Sodium is 133 today. No white count. Review of Systems Constitutional: Denied any fatigue denied any fever. Cardio vascular: denied any chest pain, palpitations Gastrointestinal: Denies vomiting. Reports nausea and diarrhea. Pulmonary: Denied any shortness of breath cough Neurologic denied any new focal deficits All inpatient medications were reviewed and appropriate changes in these medications as dictated in the interval history and assessment and plan. PHYSICAL EXAMINATION: GENERAL: The patient is alert and oriented x2-3, appropriate. Well developed, well nourished. HEENT: Pupils are round and equally reacting to light. EOMI. No scleral icterus. No conjunctival pallor. Normocephalic, atraumatic. No pharyngeal erythema. No thyromegaly. CARDIOVASCULAR: S1 and S2 present. No murmurs, rubs, or gallops. PULMONARY: Chest is clear, no wheezing, rales, or rhonchi ABDOMEN: Soft, nontender, nondistended, normoactive bowel sounds. No palpable organomegaly. MUSCULOSKELETAL: No joint swelling or deformity. EXTREMITIES: No cyanosis, clubbing, or pedal edema. Trace ankle edema NEUROLOGICAL: Gross neurological examination did not reveal any focal deficits. SKIN: No rashes. Assessment and Plan Assessment Fever with sepsis, patient has proteus UTI, on IV ceftriaxone with infectious disease consultation Proteus Miribilis bacteremia C. Dif Colitis with ongoing diarrhea despite oral vancomycin, she has been changed to po dificid today Leukocytosis secondary to above, resolved Acute metabolic and toxic encephalopathy from dehydration and UTI, sepsis, improving Hyponatremia, hypovolemic secondary to dehydration improved with IV fluids Acute kidney injury mostly prerenal patient is dehydrated on admission, poor oral intake, has resolved with IV hydration Troponin leak from sepsis, EKG completed Decreased platelet count, resolved Elevated LFT's most likely from sepsis, improving History of UTI with MDRO Recent 5th toe resection secondary to osteomyelitis/cellulitis of right foot treated with IV vanco outpatient History COPD not in acute exacerbation Diabetes mellitus type 2 with hyperglycemia Hypertension Thyroid disorder with TSH 5 this admission Gastroesophageal Reflux Disease History DVT on eliquis GI Prophylaxis Full Code Plan This is a 71 year old female admitted with concerns for fever and sepsis. Infectious disease consult Continue patient on empiric antibiotic coverage Started on oral Dicifid today for C.Dif infection Continue IV fluids Follow up labs in AM PT/OT consultation Discharge plan back to rehab when medically stable The impression and plan of care has been dictated by Hodan Dominguez, Nurse Practitioner as directed. Dr. Ramana MD I have performed a history and physical examination and medical decision making of this patient, discussed the same with the dictator, and agree with the dictators assessment and plan as written, documented as a scribe. Based on total visit time, I have performed more than 50% of this visit. Objective - Vital Signs Vital signs: Vital Signs Temp 99.6 F 09/19/21 07:30 Pulse 54 L 09/19/21 07:30 Resp 17 09/19/21 07:30 BP 136/77 09/19/21 07:30 Pulse Ox 97 09/19/21 08:26 FiO2 Intake & Output 09/18/21 09/19/21 09/19/21 18:59 06:59 18:59 Intake Total 592 1100 Output Total 400 850 Balance 192 250 Weight 98.5 kg Intake: Intake, IV Titration 900 Amount Sodium Chloride 0.9% 1, 900 000 ml @ 75 mls/hr IV . [id number] [facility] Rx#:[id number] Oral 592 200 Output: Urine 400 850 Other: Voiding Method Diaper Diaper Diaper External Catheter External Catheter External Catheter # Bowel Movements 1 1 - Labs CBC & Chem 7: 09/19/21 10:20 09/19/21 10:20 Labs: Abnormal Lab Results - Last 24 Hours (Table) 09/18/21 09/18/21 09/19/21 Range/Units 17:07 20:26 06:53 RBC (3.80-5.40) m/uL Hgb (11.4-16.0) gm/dL Hct (34.0-46.0) % Sodium (137-145) mmol/L BUN (7-17) mg/dL Glucose (74-99) mg/dL POC Glucose (mg/dL) 199 H 174 H 121 H (70-110) mg/dL Calcium (8.4-10.2) mg/dL 09/19/21 09/19/21 09/19/21 Range/Units 10:20 10:20 11:32 RBC 3.20 L (3.80-5.40) m/uL Hgb 10.1 L (11.4-16.0) gm/dL Hct 31.3 L (34.0-46.0) % Sodium 133 L (137-145) mmol/L BUN 5 L (7-17) mg/dL Glucose 172 H (74-99) mg/dL POC Glucose (mg/dL) 166 H (70-110) mg/dL Calcium 7.8 L (8.4-10.2) mg/dL Microbiology - Last 24 Hours (Table) 09/17/21 08:11 Blood Culture - Preliminary Blood No Growth after 48 hours 09/15/21 07:12 Blood Culture - Preliminary Blood No Growth after 96 hours 09/14/21 13:47 Blood Culture - Preliminary Blood No Growth after 96 hours 09/14/21 13:47 Blood Culture - Preliminary Blood No Growth after 96 hours Assessment and Plan Time with Patient: Less than 30
[2021-09-19 17:04] LABS: Glucose,Whole Blood 292 mg/dL (70-110)
[2021-09-19] MEDS: ACETAMINOPHEN TAB 325 MG TAB PO PRN (20:07)
[2021-09-19 20:40] LABS: Glucose,Whole Blood 360 mg/dL (70-110)
[2021-09-19] MEDS: ZINC SULFATE 220 MG CAP PO SCH (21:56)
[2021-09-19] MEDS: MECLIZINE 12.5 MG TAB PO SCH (21:57)
[2021-09-19] MEDS: TOPIRAMATE 25 MG TAB PO SCH (21:57)
[2021-09-19] MEDS: PRIMIDONE 250 MG TAB PO SCH (22:16)
--- NOTE | 2021-09-19 22:31 | P.PN ---
Subjective Progress Note Date: 09/19/21 Principal diagnosis: Bacteremic and C. diff colitis Patient is a 71-year-old female was brought into the ER for evaluation of mental status changes patient did have a fever with evidence of gram-negative bacteremia and UTI also have significant diarrhea stool for C. diff came back negative CT abdominal pelvis done without contrast did not show any abnormality. On today's evaluation that is 09/19/2021, the patient denies any fever or any chills, patient is breathing comfortably on nasal cannula oxygen, patient denies having any chest pain or shortness of cough, patient has been complaining of some lower abdominal pain and did have persistent diarrhea with about 3 loose stools today per the nursing staff Objective - Vital Signs Vital signs: Vital Signs Temp 99.6 F 09/19/21 07:30 Pulse 54 L 09/19/21 07:30 Resp 17 09/19/21 07:30 BP 136/77 09/19/21 07:30 Pulse Ox 97 09/19/21 08:26 FiO2 Intake & Output 09/18/21 09/19/21 09/19/21 18:59 06:59 18:59 Intake Total 592 1100 Output Total 400 850 Balance 192 250 Weight 98.5 kg Intake: Intake, IV Titration 900 Amount Sodium Chloride 0.9% 1, 900 000 ml @ 75 mls/hr IV . [id number] [facility] Rx#:[id number] Oral 592 200 Output: Urine 400 850 Other: Voiding Method Diaper Diaper Diaper External Catheter External Catheter External Catheter # Bowel Movements 1 1 - Exam GENERAL DESCRIPTION: An elderly female lying in bed in no distress RESPIRATORY SYSTEM: Unlabored breathing , decreased breath sounds at bases HEART: S1 S2 regular rate and rhythm , ABDOMEN: Soft , no tenderness EXTREMITIES: No edema feet - Labs CBC & Chem 7: 09/19/21 10:20 09/19/21 10:20 Labs: Abnormal Lab Results - Last 24 Hours (Table) 09/18/21 09/18/21 09/19/21 Range/Units 17:07 20:26 06:53 RBC (3.80-5.40) m/uL Hgb (11.4-16.0) gm/dL Hct (34.0-46.0) % Sodium (137-145) mmol/L BUN (7-17) mg/dL Glucose (74-99) mg/dL POC Glucose (mg/dL) 199 H 174 H 121 H (70-110) mg/dL Calcium (8.4-10.2) mg/dL 09/19/21 09/19/21 09/19/21 Range/Units 10:20 10:20 11:32 RBC 3.20 L (3.80-5.40) m/uL Hgb 10.1 L (11.4-16.0) gm/dL Hct 31.3 L (34.0-46.0) % Sodium 133 L (137-145) mmol/L BUN 5 L (7-17) mg/dL Glucose 172 H (74-99) mg/dL POC Glucose (mg/dL) 166 H (70-110) mg/dL Calcium 7.8 L (8.4-10.2) mg/dL Microbiology - Last 24 Hours (Table) 09/17/21 08:11 Blood Culture - Preliminary Blood No Growth after 48 hours 09/15/21 07:12 Blood Culture - Preliminary Blood No Growth after 96 hours 09/14/21 13:47 Blood Culture - Preliminary Blood No Growth after 96 hours 09/14/21 13:47 Blood Culture - Preliminary Blood No Growth after 96 hours Assessment and Plan (1) Fever Current Visit: Yes Status: Acute Code(s): R50.9 - FEVER, UNSPECIFIED SNOMED Code(s): 574745157 Plan: 1patient presented to hospital with fever and mental status changes concerning for possible urinary source in this patient currently with no other obvious focus clinically not behaving as pneumonia abdominal postoperative examination and the patient right foot wound is currently healed with no evidence of any cellulitis. 2patient urine has been finalized with Proteus and blood cultures also finalized with Proteus patient currently being treated with Rocephin 2 g daily , we'll transition to Ceftin 7 days on discharge 3 patient with C. diff colitis on oral vancomycin, however the patient is still having diarrhea, we will discontinue vancomycin and start the patient on deficid if a tissue improvement be finish therapy with 10 day course of oral deficid discussed with primary team Time with Patient: Less than 30
[2021-09-20] MEDS: LEVOTHYROXINE 75 MCG TAB PO SCH (05:54)
[2021-09-20 07:34] LABS: Glucose,Whole Blood 130 mg/dL (70-110)
[2021-09-20] MEDS: MULTIVITAMINS, THERA 1 EACH TAB PO SCH (07:35)
[2021-09-20] MEDS: MAG HYDROX/AL HYDROX/SIMETH 30 ML CUP PO SCH ×4 (07:36→20:52)
[2021-09-20] MEDS: DULoxetine HCL 30 MG CAPSULE.DR PO SCH ×2 (07:36→20:46)
[2021-09-20] MEDS: MAGNESIUM OXIDE 400 MG TAB PO SCH (07:36)
[2021-09-20] MEDS: GABAPENTIN 400 MG CAP PO SCH ×3 (07:36→20:52)
[2021-09-20] MEDS: FIDAXOMICIN 200 MG TABLET PO SCH ×2 (07:36→20:46)
[2021-09-20] MEDS: FLUTICASONE 50MCG/SPRAY NASAL 16GM EA NOSTRIL SCH ×2 (07:37→20:46)
[2021-09-20] MEDS: FAMOTIDINE 20 MG TAB PO SCH (07:37)
[2021-09-20] MEDS: APIXABAN 2.5 MG TABLET PO SCH ×2 (07:37→20:45)
[2021-09-20] MEDS: CHOLECALCIFEROL 25 MCG (1000 IU) TABLET PO SCH (07:37)
[2021-09-20] MEDS: FLUTICASONE 110 MCG INHALER INHALATION SCH ×2 (07:42→20:06)
[2021-09-20 11:18] VITALS: BMI 37.0
[2021-09-20 11:25] LABS: Glucose,Whole Blood 194 mg/dL (70-110)
[2021-09-20] MEDS: INSULIN ASPART (NovoLOG) 100 UNIT/ML VIAL SQ SCH ×4 (11:29→20:56)
[2021-09-20 11:50] LABS: African American GFR (CKD) 104.3 (60.0-200.0); Anion Gap 9.3 mmol/L (10.00-18.00); BUN/Creat Ratio 7.32 Ratio (12.00-20.00); Blood Urea Nitrogen 4.6 mg/dL (9.0-27.0); Calcium 8.1 mg/dL (8.7-10.3); Carbon Dioxide 23.3 mmol/L (20.0-27.5); Potassium 3.6 mmol/L (3.5-5.5)
--- NOTE | 2021-09-20 12:42 | P.PN ---
Subjective Progress Note Date: 09/20/21 Principal diagnosis: Bacteremic and C. diff colitis Patient is a 71-year-old female was brought into the ER for evaluation of mental status changes patient did have a fever with evidence of gram-negative bacteremia and UTI also have significant diarrhea stool for C. diff came back negative CT abdominal pelvis done without contrast did not show any abnormality. On today's evaluation that is 09/20/2021, the patient remains to be afebrile, patient is breathing comfortably on nasal cannula oxygen, patient denies chest pain, shortness of breath or cough, patient denies abdominal pain today mention she did have 5 bowel movement yesterday however only 1 today Objective - Vital Signs Vital signs: Vital Signs Temp 98.9 F 09/20/21 07:54 Pulse 105 H 09/20/21 07:54 Resp 18 09/20/21 07:54 BP 154/74 09/20/21 07:54 Pulse Ox 96 09/20/21 07:54 FiO2 Intake & Output 09/19/21 09/20/21 09/20/21 18:59 06:59 18:59 Intake Total 900 1140 Output Total 450 Balance 900 690 Weight 97.9 kg 97.9 kg Intake: IV 900 900 Sodium Chloride 0.9% 1, 900 900 000 ml @ 75 mls/hr IV . [id number] [facility] Rx#:[id number] Oral 240 Output: Urine 450 Other: Voiding Method Diaper External Catheter External Catheter # Voids 1 # Bowel Movements 1 1 - Exam GENERAL DESCRIPTION: An elderly female lying in bed in no distress RESPIRATORY SYSTEM: Unlabored breathing , decreased breath sounds at bases HEART: S1 S2 regular rate and rhythm , ABDOMEN: Soft , no tenderness EXTREMITIES: No edema feet - Labs CBC & Chem 7: 09/19/21 10:20 09/20/21 07:09 Labs: Abnormal Lab Results - Last 24 Hours (Table) 09/19/21 09/19/21 09/19/21 Range/Units 11:32 17:02 20:31 POC Glucose (mg/dL) 166 H 292 H 360 H (70-110) mg/dL 09/20/21 09/20/21 Range/Units 07:32 11:23 POC Glucose (mg/dL) 130 H 194 H (70-110) mg/dL Microbiology - Last 24 Hours (Table) 09/17/21 08:11 Blood Culture - Preliminary Blood No Growth after 72 hours 09/15/21 07:12 Blood Culture - Preliminary Blood No Growth after 120 hours 09/14/21 13:47 Blood Culture - Preliminary Blood No Growth after 120 hours 09/14/21 13:47 Blood Culture - Preliminary Blood No Growth after 120 hours Assessment and Plan (1) Fever Current Visit: Yes Status: Acute Code(s): R50.9 - FEVER, UNSPECIFIED SNOMED Code(s): 630450170 Plan: 1patient presented to hospital with fever and mental status changes concerning for possible urinary source in this patient currently with no other obvious focus clinically not behaving as pneumonia abdominal postoperative examination and the patient right foot wound is currently healed with no evidence of any cellulitis. 2patient urine has been finalized with Proteus and blood cultures also finalized with Proteus patient currently being treated with Rocephin 2 g daily , we'll transition to Ceftin 7 days on discharge 3 patient with C. diff colitis did not responded well to oral vancomycin, however the diarrhea seemed to be improving with deficid and plan is to continue with deficid to finish therapy with 10 day course of therapy Time with Patient: Less than 30
--- NOTE | 2021-09-20 13:38 | P.PN ---
Subjective Progress Note Date: 09/20/21 This is a 71 year old female with past medical history significant for COPD, Diabetes, DVT, thyroid, MRSA infection. She presents to the from rehab with concern for altered mental status and fever. There is also concern for UTI. Chest Xray showing mild atelectasis at the lung base which is increased. Ur inalysis was completed showing cloudy urine, proteinuria, small blood, large luekocyte esterase, 66 WBC. She is confused and lethargic at the time of examination. She is arousable with touch. Denies chest pain, shortness of breath. She denies abdominal pain. She is a poor historian. She was recently discharged from this facility in June of this year where she underwent excision of bursa right foot and partial 5th toe metatarsal head resection of the right foot secondary to osteomyelitis and cellulitis of her right foot and cultures were positive for MRSA at that time. Labs showing white count 12.5, sodium 131, BUN 42, creatinine 1.38, glucose is 180, TSH 5.330. Concern for UTI with sepsis as her procalcitonin level is 19.10. She has been started on IV ceftriaxone empirically and infectious disease has been consulted. Her T-max since admission is 102.3 axillary and she continues to be febrile. Her troponin was found to be elevated at 0.091 and proBNP 1890. There is no history of heart failure. She will also be admitted with telemetry monitoring and trend troponin levels. 09/14/2021 Patient continued with acute confusion and was febrile throughout the evening. She was started on IV vancomycin with concern for sepsis. Per nursing staff patient had a large amount of diarrhea, no reports of blood. She was upgraded to the steopdown unit. Abdominal pelvis CT was ordered with oral contrast however patient could not tolerate oral contrast per nursing. It was completed this morning again without oral contrast showing left lower lobe infiltrate with small effusion findings suggestive possibly of left lower lobe pneumonia, there is single nonobstructing right renal calcification, small, there is cholecystectomy and hysterectomy. No evidence of retroperitoneal adenopathy or hemorrhage, no evidence for hydronephrosis, no inflammatory changes in the mesentery. Stool was found to be positive for C. diff, IV vancomycin was discontinued patient is now on oral vancomycin. Pending urine culture, preliminary blood culture showing gram-negative bacilli. She has infectious dis ease consultation and also continues on IV ceftriaxone empirically. Blood cultures repeated today. Her mentation has improved she is now alert x 2-3 and answer questions appropriately. T-max 101 throughout the evening, she is afebrile, heart rate 64, blood pressure 160/76, she is 98% on 2 L nasal cannula. Labs today show white count 7.0, hemoglobin 10.4, sodium 136, chloride 108, BUN 25, creatinine 0.80, blood glucose in the 180s, calcium 7.8. Liver enzymes are improving AST 44, ALT 46. 09/15/2021 Patient evaluated today resting in bed. Mentation has worsened since yesterday she is alert x 1. She continues on IV ceftriaxone 2 gms and oral vancomycin. Urine culture showing proteus, her blood culture showing gram negative bacilli and repeat blood cultures have been done daily. Infectious disease is following the patient. [place] has been discontinued for now, she continues on oral tylenol for pain. She is afebrile today, heart rate 93, blood pressure 164/76, 94% on room air. She denies nausea, vomiting, abdomen is nontender today. No white count, hgb 11.0, sodium 133, potassium 3.6, magnesium 1.7, liver enzymes stable. We will replace electrolytes. 09/16/2021 Patient evaluated today resting in bed. She is alert x 3 today, she does complain of abdominal pain and discomfort mostly mid abdomen. She is not tender to palpation. Reports 5 liquid bowel movements throughout the night and she has 2 more today so far. No blood reported in the stool. She is being treated for proteus UTI and blood cultures today are positive for proteus miribilis as well. She is also being treated for C.Dif colitis as well with oral vanco. We will add zofran today. She continues on rocephin 2 grams and continues on IV fluids. She is being followed by infectious disease. Labs today showing white count 8.9, platelets 106, sodium 133, potassium 3.8, blood glucose in the 200s, magnesium 1.9. Temp of 97.6, blood pressure 146/66, 96% room air. 09/17/2021 Patient is resting in bed today, PT/OT on consult she will return to rehab when stable. Blood cultures x 2 positive for proteus repeat is pending, she is continued on IV ceftriaxone and also po vancomcyin and infectious disease consultation. She states that her diarrhea has slowed down and also states improvement in nausea with zofran. Mentation has continued to improve as well. Vital signs today showing a temp of 98.3, heart rate 66, Blood pressure 133/63, 98% room air. Labs today showing sodium 133, potassium 3.7, blood glucose in the 200s. 09/18/2021 Patient was evaluated today resting in bed during her bed bath. Her buttocks wi th excoriated also evidence for sacral pressure injury. Her diarrhea has improved she had one episode diarrhea for the evening and one episode at 10 AM today which has becoming more formed is no longer liquid. She can continue with zinc barrier pacer and calmoseptine and also sacral opifoam dressing for this. Her white count has improved is now 8.9, hemoglobin stable at 11.7, platelet count 106. Her most recent molecular panel from today showing a sodium level of 136, potassium 3.7, CO2 21.8, chloride 103, BUN 6.5, creatinine 0.8. Blood glucoses in the 150s, calcium 8.1. Her liver enzymes also improved. She is alert 3 today she is denying chest pain, shortness of breath. Her abdominal nausea and pain has improved. She was given IV zofran while in patient. She denies dysuria, hesitancy. No fever or chills. She denies chest pain, denies shortness of breath. Denies emesis. On assessment her lungs are clear, S1-S2 auscultated, abdomen is soft and nontender she has normoactive bowel sounds. She has no peripheral edema. Her mentation has improved alert 3 focal neurological exam is negative. With clearance from infectious disease patient will be discharged today on oral antibiotic therapy. 09/19/2021 Patient unfortuneatly had large loose BM in the evening and a large loose BM this morning. She reports tolerating diet wall, with some nausea. She is continued on IV zofran for this as well as maalox and pepcid. Infectious disease had recommended to keep patient overnight yesterday and as she has had 2 large loose BMs we will recommend keeping patient and cancel discharge. Oral vancomycin has been discontinued and she has been started on 10 days of oral dificid. She is also on IV ceftriaxone 2 grams daily. Blood culture preliminary at 96 hours is showing clearing of proteus bacteremia. She did have T-max 100.1. over night as well. She is on nasal cannula at 3L with saturation 97%, she does state that she wears oxygen as needed at rehab. Sodium is 133 today. No white count. 09/20/2021 Patient continued to have 5 loose bowel movements throughout the evening and one large loose bowel movement today so far. She is tolerating oral diet and eating without difficulty. No nausea, no emesis. We will continue to keep patient for monitoring and continue on oral Dificin as recommended by infectious disease. She continues on IV ceftriaxone for proteus coverage. Otherwise she is alert and oriented, no acute events overnight. She does complain of some mild abdom inal discomfort which is generalized. Repeat blood cultures are negative so far pending finalized cultures. She has been maintained in sinus rhythm. Heart rate today is 105, blood pressure 154/74, she is afebrile, 96% on 2 L nasal cannula. Her blood glucose today has also improved. Labs reviewed today, sodium 135, potassium 3.6, BUN 4.6, creatinine 0.6, calcium 8.1 Review of Systems Constitutional: Denied any fatigue denied any fever. Cardio vascular: denied any chest pain, palpitations Gastrointestinal: Denies vomiting. Reports diarrhea. Pulmonary: Denied any shortness of breath cough Neurologic denied any new focal deficits All inpatient medications were reviewed and appropriate changes in these medications as dictated in the interval history and assessment and plan. PHYSICAL EXAMINATION: GENERAL: The patient is alert and oriented x2-3, appropriate. Well developed, well nourished. HEENT: Pupils are round and equally reacting to light. EOMI. No scleral icterus. No conjunctival pallor. Normocephalic, atraumatic. No pharyngeal erythema. No thyromegaly. CARDIOVASCULAR: S1 and S2 present. No murmurs, rubs, or gallops. PULMONARY: Chest is clear, no wheezing, rales, or rhonchi ABDOMEN: Soft, nontender, nondistended, normoactive bowel sounds. No palpable organomegaly. MUSCULOSKELETAL: No joint swelling or deformity. EXTREMITIES: No cyanosis, clubbing, or pedal edema. Trace ankle edema NEUROLOGICAL: Gross neurological examination did not reveal any focal deficits. SKIN: No rashes. Assessment and Plan Assessment Fever with sepsis, patient has proteus UTI, on IV ceftriaxone with infectious disease consultation Proteus Miribilis bacteremia C. Dif Colitis with ongoing diarrhea despite oral vancomycin, she has been changed to po Dificid, continues with multiple loose BMs. Leukocytosis secondary to above, resolved Acute metabolic and toxic encephalopathy from dehydration and UTI, sepsis, improving Hyponatremia, hypovolemic secondary to dehydration improved with IV fluids Acute kidney injury mostly prerenal patient is dehydrated on admission, poor oral intake, has resolved with IV hydration Troponin leak from sepsis, EKG completed Decreased platelet count, resolved Elevated LFT's most likely from sepsis, improving History of UTI with MDRO Recent 5th toe resection secondary to osteomyelitis/cellulitis of right foot treated with IV vanco outpatient History COPD not in acute exacerbation Diabetes mellitus type 2 with hyperglycemia Hypertension Thyroid disorder with TSH 5 this admission Gastroesophageal Reflux Disease History DVT on eliquis GI Prophylaxis Full Code Plan This is a 71 year old female admitted with concerns for fever and sepsis. Infectious disease consult Continue patient on empiric antibiotic coverage Started on oral Dicifid for C.Dif infection Continue IV fluids Follow up labs in AM PT/OT consultation Discharge plan back to rehab when medically stable The impression and plan of care has been dictated by Hodan Dominguez, Nurse Practitioner as directed. Dr. Ramana MD I have performed a history and physical examination and medical decision making of this patient, discussed the same with the dictator, and agree with the dictators assessment and plan as written, documented as a scribe. Based on total visit time, I have performed more than 50% of this visit. Objective - Vital Signs Vital signs: Vital Signs Temp 98.9 F 09/20/21 07:54 Pulse 105 H 09/20/21 07:54 Resp 18 09/20/21 07:54 BP 154/74 09/20/21 07:54 Pulse Ox 96 09/20/21 07:54 FiO2 Intake & Output 09/19/21 09/20/21 09/20/21 18:59 06:59 18:59 Intake Total 900 1140 Output Total 450 Balance 900 690 Weight 97.9 kg 97.9 kg Intake: IV 900 900 Sodium Chloride 0.9% 1, 900 900 000 ml @ 75 mls/hr IV . [id number] [facility] Rx#:[id number] Oral 240 Output: Urine 450 Other: Voiding Method Diaper External Catheter External Catheter # Voids 1 # Bowel Movements 1 1 - Labs CBC & Chem 7: 09/19/21 10:20 09/20/21 07:09 Labs: Abnormal Lab Results - Last 24 Hours (Table) 09/19/21 09/19/21 09/20/21 Range/Units 17:02 20:31 07:32 POC Glucose (mg/dL) 292 H 360 H 130 H (70-110) mg/dL 09/20/21 Range/Units 11:23 POC Glucose (mg/dL) 194 H (70-110) mg/dL Microbiology - Last 24 Hours (Table) 09/17/21 08:11 Blood Culture - Preliminary Blood No Growth after 72 hours 09/15/21 07:12 Blood Culture - Preliminary Blood No Growth after 120 hours 09/14/21 13:47 Blood Culture - Preliminary Blood No Growth after 120 hours 09/14/21 13:47 Blood Culture - Preliminary Blood No Growth after 120 hours Assessment and Plan Time with Patient: Less than 30
[2021-09-20] MEDS: SODIUM CHLORIDE 0.9% 1,000 ML IV SCH ×2 (14:37→14:42)
[2021-09-20 16:21] LABS: Glucose,Whole Blood 153 mg/dL (70-110)
[2021-09-20 20:36] LABS: Glucose,Whole Blood 183 mg/dL (70-110)
[2021-09-20] MEDS: TOPIRAMATE 25 MG TAB PO SCH (20:46)
[2021-09-20] MEDS: PRIMIDONE 250 MG TAB PO SCH (20:46)
[2021-09-20] MEDS: ZINC SULFATE 220 MG CAP PO SCH (20:46)
[2021-09-20] MEDS: MECLIZINE 12.5 MG TAB PO SCH (20:46)
[2021-09-20] MEDS: ONDANSETRON 4 MG/2 ML VIAL IVP PRN (21:12)
[2021-09-21] MEDS ORDERED: ALPRAZolam 0.25 MG TAB PO STA (02:50)
[2021-09-21] MEDS: SODIUM CHLORIDE 0.9% 1,000 ML IV SCH ×2 (04:47→15:43)
--- NOTE | 2021-09-21 05:33 | XR ---
EXAM: XR Chest, 1 View CLINICAL HISTORY: ITS.REASON XR Reason: chest pain TECHNIQUE: Frontal view of the chest. COMPARISON: 09/13/2021 FINDINGS: Lungs: Unremarkable. No consolidation. Pleural space: Unremarkable. No pneumothorax. Heart: Unremarkable. No cardiomegaly. Mediastinum: Unremarkable. Bones/joints: Unremarkable. IMPRESSION: No acute pulmonary process.
[2021-09-21] MEDS: LEVOTHYROXINE 75 MCG TAB PO SCH (05:34)
[2021-09-21 06:52] LABS: Glucose,Whole Blood 137 mg/dL (70-110)
[2021-09-21] MEDS: FLUTICASONE 110 MCG INHALER INHALATION SCH ×2 (07:10→19:36)
[2021-09-21] MEDS: APIXABAN 2.5 MG TABLET PO SCH ×2 (08:24→21:05)
[2021-09-21] MEDS: MULTIVITAMINS, THERA 1 EACH TAB PO SCH (08:24)
[2021-09-21] MEDS: FAMOTIDINE 20 MG TAB PO SCH (08:24)
[2021-09-21] MEDS: INSULIN ASPART (NovoLOG) 100 UNIT/ML VIAL SQ SCH ×4 (08:24→22:35)
[2021-09-21] MEDS: GABAPENTIN 400 MG CAP PO SCH ×3 (08:24→21:05)
[2021-09-21] MEDS: CHOLECALCIFEROL 25 MCG (1000 IU) TABLET PO SCH (08:25)
[2021-09-21] MEDS: MAGNESIUM OXIDE 400 MG TAB PO SCH (08:25)
[2021-09-21] MEDS: FIDAXOMICIN 200 MG TABLET PO SCH ×2 (08:25→21:04)
[2021-09-21] MEDS: MAG HYDROX/AL HYDROX/SIMETH 30 ML CUP PO SCH ×4 (08:25→21:01)
[2021-09-21] MEDS: DULoxetine HCL 30 MG CAPSULE.DR PO SCH ×2 (08:26→21:04)
[2021-09-21] MEDS: FLUTICASONE 50MCG/SPRAY NASAL 16GM EA NOSTRIL SCH ×2 (08:27→21:08)
[2021-09-21 09:43] LABS: Basophils # (A) 0.03 X 10*3/uL (0.00-0.10); Basophils % (A) 0.4 %; Eosinophils # (A) 0.13 X 10*3/uL (0.04-0.35); Eosinophils % (A) 1.6 %; HCT 29.4 % (37.2-46.3); HGB 9.2 g/dL (12.0-15.0); Immature Grans, Automated 0.7 %; Lymphocytes % (A) 17.3 %; MCH 29.8 pg (27.0-32.0); MCHC 31.3 g/dL (32.0-37.0); MCV 95.1 fL (80.0-97.0); Mean Platelet Volume 9.4 fL (9.5-12.2); Monocytes # (A) 0.53 X 10*3/uL (0.20-1.00); Monocytes % (A) 6.6 %; NRBC Per 100 WBC 0 /100 WBCS (0.0-0.0); Neutrophils # (A) 5.93 X 10*3/uL (1.80-7.70); Neutrophils % (A) 73.4 %; Platelet Count 269 X 10*3/uL (140-440); RBC 3.09 X 10*6/uL (4.10-5.20); RDW 12.8 % (11.5-14.5); WBC 8.08 X 10*3/uL (4.50-10.00)
[2021-09-21 09:57] LABS: African American GFR (CKD) 106.7 (60.0-200.0); Anion Gap 10.7 mmol/L (10.00-18.00); BUN/Creat Ratio 6.53 Ratio (12.00-20.00); Blood Urea Nitrogen 3.8 mg/dL (9.0-27.0); Calcium 8.1 mg/dL (8.7-10.3); Carbon Dioxide 23.5 mmol/L (20.0-27.5); Non-African American GFR(CKD) 92.1 (60.0-200.0); Potassium 3.6 mmol/L (3.5-5.5)
[2021-09-21] MEDS: PHENAZOPYRIDINE 100 MG TAB PO SCH ×3 (10:11→21:03)
--- NOTE | 2021-09-21 10:38 | XR ---
EXAMINATION TYPE: XR KUB DATE OF EXAM: 09/21/2021 10:15 AM INDICATION: Patient age:Female; 71 years old; Reason for study: abd pain , c diff; COMPARISON: CT abdomen pelvis 09/14/2021 TECHNIQUE: One radiographic view of the abdomen was obtained. FINDINGS: The bowel gas pattern is nonspecific without dilated loops of small or large bowel. There i s no evidence for organomegaly or pneumoperitoneum. The osseous structures are intact. No abnormal calcifications are present. Fecal material and gas are demonstrated throughout the colon and rectum. Bilateral hip prostheses are present. Hardware appears intact. IMPRESSION: Nonspecific bowel gas pattern without radiographic evidence for acute process.
[2021-09-21 11:30] LABS: Glucose,Whole Blood 169 mg/dL (70-110)
--- NOTE | 2021-09-21 12:44 | P.PN ---
Subjective This is a 71 year old female with past medical history significant for COPD, Diabetes, DVT, thyroid, MRSA infection. She presents to the from rehab with concern for altered mental status and fever. There is also concern for UTI. Chest Xray showing mild atelectasis at the lung base which is increased. Urinalysis was completed showing cloudy urine, proteinuria, small blood, large luekocyte esterase, 66 WBC. She is confused and lethargic at the time of examination. She is arousable with touch. Denies chest pain, shortness of breath. She denies abdominal pain. She is a poor historian. She was recently discharged from this facility in June of this year where she underwent excision of bursa right foot and partial 5th toe metatarsal head resection of the right foot secondary to osteomyelitis and cellulitis of her right foot and cultures we re positive for MRSA at that time. Labs showing white count 12.5, sodium 131, BUN 42, creatinine 1.38, glucose is 180, TSH 5.330. Concern for UTI with sepsis as her procalcitonin level is 19.10. She has been started on IV ceftriaxone empirically and infectious disease has been consulted. Her T-max since admission is 102.3 axillary and she continues to be febrile. Her troponin was found to be elevated at 0.091 and proBNP 1890. There is no history of heart failure. She will also be admitted with telemetry monitoring and trend troponin levels. 09/14/2021 Patient continued with acute confusion and was febrile throughout the evening. She was started on IV vancomycin with concern for sepsis. Per nursing staff patient had a large amount of diarrhea, no reports of blood. She was upgraded to the steopdown unit. Abdominal pelvis CT was ordered with oral contrast however patient could not tolerate oral contrast per nursing. It was completed this morning again without oral contrast showing left lower lobe infiltrate with small effusion findings suggestive possibly of left lower lobe pneumonia, there is single nonobstructing right renal calcification, small, there is cholecystectomy and hysterectomy. No evidence of retroperitoneal adenopathy or hemorrhage, no evidence for hydronephrosis, no inflammatory changes in the mesentery. Stool was found to be positive for C. diff, IV vancomycin was discontinued patient is now on oral vancomycin. Pending urine culture, preliminary blood culture showing gram-negative bacilli. She has infectious disease consultation and also continues on IV ceftriaxone empirically. Blood cultures repeated today. Her mentation has improved she is now alert x 2-3 and answer questions appropriately. T-max 101 throughout the evening, she is afebrile, heart rate 64, blood pressure 160/76, she is 98% on 2 L nasal cannula. Labs today show white count 7.0, hemoglobin 10.4, sodium 136, chloride 108, BUN 25, creatinine 0.80, blood glucose in the 180s, calcium 7.8. Liver enzymes are improving AST 44, ALT 46. 09/15/2021 Patient evaluated today resting in bed. Mentation has worsened since yesterday she is alert x 1. She continues on IV ceftriaxone 2 gms and oral vancomycin. Urine culture showing proteus, her blood culture showing gram negative bacilli and repeat blood cultures have been done daily. Infectious disease is following the patient. [place] has been discontinued for now, she continues on oral tylenol for pain. She is afebrile today, heart rate 93, blood pressure 164/76, 94% on room air. She denies nausea, vomiting, abdomen is nontender today. No white count, hgb 11.0, sodium 133, potassium 3.6, magnesium 1.7, liver enzymes stable. We will replace electrolytes. 09/16/2021 Patient evaluated today resting in bed. She is alert x 3 today, she does complain of abdominal pain and discomfort mostly mid abdomen. She is not tender to palpation. Reports 5 liquid bowel movements throughout the night and she has 2 more today so far. No blood reported in the stool. She is being treated for proteus UTI and blood cultures today are positive for proteus miribilis as well. She is also being treated for C.Dif colitis as well with oral vanco. We will add zofran today. She continues on rocephin 2 grams and continues on IV fluids. She is being followed by infectious disease. Labs today showing white count 8.9, platelets 106, sodium 133, potassium 3.8, blood glucose in the 200s, magnesium 1.9. Temp of 97.6, blood pressure 146/66, 96% room air. 09/17/2021 Patient is resting in bed today, PT/OT on consult she will return to rehab when stable. Blood cultures x 2 positive for proteus repeat is pending, she is continued on IV ceftriaxone and also po vancomcyin and infectious disease consultation. She states that her diarrhea has slowed down and also states improvement in nausea with zofran. Mentation has continued to improve as well. V ital signs today showing a temp of 98.3, heart rate 66, Blood pressure 133/63, 98% room air. Labs today showing sodium 133, potassium 3.7, blood glucose in the 200s. 09/18/2021 Patient was evaluated today resting in bed during her bed bath. Her buttocks with excoriated also evidence for sacral pressure injury. Her diarrhea has improved she had one episode diarrhea for the evening and one episode at 10 AM today which has becoming more formed is no longer liquid. She can continue with zinc barrier pacer and calmoseptine and also sacral opifoam dressing for this. Her white count has improved is now 8.9, hemoglobin stable at 11.7, platelet count 106. Her most recent molecular panel from today showing a sodium level of 136, potassium 3.7, CO2 21.8, chloride 103, BUN 6.5, creatinine 0.8. Blood glucoses in the 150s, calcium 8.1. Her liver enzymes also improved. She is alert 3 today she is denying chest pain, shortness of breath. Her abdominal nausea and pain has improved. She was given IV zofran while in patient. She denies dysuria, hesitancy. No fever or chills. She denies chest pain, denies shortness of breath. Denies emesis. On assessment her lungs are clear, S1-S2 auscultated, abdomen is soft and nontender she has normoactive bowel sounds. She has no peripheral edema. Her mentation has improved alert 3 focal neurological exam is negative. With clearance from infectious disease patient will be discharged today on oral antibiotic therapy. 09/19/2021 Patient unfortuneatly had large loose BM in the evening and a large loose BM this morning. She reports tolerating diet wall, with some nausea. She is continued on IV zofran for this as well as maalox and pepcid. Infectious disease had recommended to keep patient overnight yesterday and as she has had 2 large l oose BMs we will recommend keeping patient and cancel discharge. Oral vancomycin has been discontinued and she has been started on 10 days of oral dificid. She is also on IV ceftriaxone 2 grams daily. Blood culture preliminary at 96 hours is showing clearing of proteus bacteremia. She did have T-max 100.1. over night as well. She is on nasal cannula at 3L with saturation 97%, she does state that she wears oxygen as needed at rehab. Sodium is 133 today. No white count. 09/20/2021 Patient continued to have 5 loose bowel movements throughout the evening and one large loose bowel movement today so far. She is tolerating oral diet and eating without difficulty. No nausea, no emesis. We will continue to keep patient for monitoring and continue on oral Dificin as recommended by infectious disease. She continues on IV ceftriaxone for proteus coverage. Otherwise she is alert and oriented, no acute events overnight. She does complain of some mild abdominal discomfort which is generalized. Repeat blood cultures are negative so far pending finalized cultures. She has been maintained in sinus rhythm. Heart rate today is 105, blood pressure 154/74, she is afebrile, 96% on 2 L nasal cannula. Her blood glucose today has also improved. Labs reviewed today, sodium 135, potassium 3.6, BUN 4.6, creatinine 0.6, calcium 8.1 I am resuming the care of the patient today on 09/21/2021 This is a pleasant 72 years old female with ongoing C. diff and urinary tract infection being followed closely by infectious disease team and kept on ceftriaxone 2 g and Dificid total 09/29. Also she is on gentle hydration with normal saline at 75 mL/h, however patient is still complaining of from lower abdominal pain and diarrhea, just a few bouts last night and was this morning and they were loose. KUB today is negative for acute process. Chest x-ray also no acute process. No fever today. She remains on liquids and Pepcid as well. Also she was started on Pyridium for dysuria Echocardiogram done 5-6 months ago showed ejection fraction more than 55% without to repeat echocardiogram Objective - Vital Signs Vital signs: Vital Signs Temp 98.7 F 09/21/21 07:45 Pulse 51 L 09/21/21 07:45 Resp 20 09/21/21 07:45 BP 124/60 09/21/21 07:45 Pulse Ox 94 L 09/21/21 07:45 FiO2 Intake & Output 09/20/21 09/21/21 09/21/21 18:59 06:59 18:59 Intake Total 180 Output Total 450 1150 Balance -270 -1150 Weight 97.9 kg 98 kg Intake: Oral 180 Output: Urine 450 1150 Other: Voiding Method External Catheter # Voids 1 # Bowel Movements 3 2 - Exam -GENERAL: The patient is alert and oriented x3, not in any acute distress. Obese HEENT: Pupils are round and equally reacting to light. EOMI. No scleral icterus. No conjunctival pallor. Normocephalic, atraumatic. No pharyngeal erythema. No thyromegaly. CARDIOVASCULAR: S1 and S2 present. No murmurs, rubs, or gallops. PULMONARY: Chest is clear to auscultation, no wheezing or crackles. -ABDOMEN: Soft, mild lower abdominal tenderness with no rebound tenderness, no guarding, nondistended, normoactive bowel sounds. No palpable organomegaly. MUSCULOSKELETAL: No joint swelling or deformity. EXTREMITIES: No cyanosis, clubbing, or pedal edema. NEUROLOGICAL: Gross neurological examination did not reveal any focal deficits. SKIN: No rashes. no petechiae. - Labs CBC & Chem 7: 09/21/21 04:07 09/21/21 04:07 Labs: Abnormal Lab Results - Last 24 Hours (Table) 09/20/21 09/20/21 09/20/21 Range/Units 07:09 11:23 16:18 Anion Gap 9.30 L (10.00-18.00) mmol/L BUN 4.6 L (9.0-27.0) mg/dL BUN/Creatinine Ratio 7.32 L (12.00-20.00) Ratio Glucose 135 H (70-110) mg/dL POC Glucose (mg/dL) 194 H 153 H (70-110) mg/dL Calcium 8.1 L (8.7-10.3) mg/dL 09/20/21 09/21/21 Range/Units 20:31 06:51 Anion Gap (10.00-18.00) mmol/L BUN (9.0-27.0) mg/dL BUN/Creatinine Ratio (12.00-20.00) Ratio Glucose (70-110) mg/dL POC Glucose (mg/dL) 183 H 137 H (70-110) mg/dL Calcium (8.7-10.3) mg/dL Microbiology - Last 24 Hours (Table) 09/15/21 07:12 Blood Culture - Final Blood No Growth after 144 hours 09/14/21 13:47 Blood Culture - Final Blood No Growth after 144 hours 09/14/21 13:47 Blood Culture - Final Blood No Growth after 144 hours 09/17/21 08:11 Blood Culture - Preliminary Blood No Growth after 72 hours Assessment and Plan Assessment: sepsis, patient has proteus UTI, on IV ceftriaxone with infectious disease consultation Proteus Miribilis bacteremia C. Dif Colitis with ongoing diarrhea despite was oral vancomycin, she has been changed to po Dificid, continues with multiple loose BMs. Leukocytosis secondary to above, resolved anemia Acute kidney injury,has resolved with IV hydration Troponin leak from sepsis, EKG completed Decreased platelet count, resolved Elevated LFT's most likely from sepsis, improving History of UTI with MDRO Recent 5th toe resection secondary to osteomyelitis/cellulitis of right foot treated with IV vanco outpatient History COPD not in acute exacerbation Diabetes mellitus type 2 with hyperglycemia Hypertension Thyroid disorder with TSH 5 this admission Gastroesophageal Reflux Disease History DVT on eliquis Plan: She is a pleasant 72 years old female with UTI, C. diff, Proteus bacteremia Continue with ceftriaxone and Dificid [facility] infectious disease team on the case. Continue with gentle hydration Continue with monitoring hemoglobin and electrolytes Infectious disease team on the case Check echocardiogram Labs and medication were reviewed.. Continue same treatment. Continue with symptomatic treatment. Resume home medication. Monitor lytes and vitals. DVT and GI prophylaxis. Further recommendationsas per clinical course of the patient DVT prophylaxis: On Eliquis already GI Prophylaxis: Pepcid PT/OT: Recommended subacute rehab Prognosis is guarded
[2021-09-21] MEDS: ONDANSETRON 4 MG/2 ML VIAL IVP PRN ×2 (12:55→20:38)
[2021-09-21 16:48] LABS: Glucose,Whole Blood 174 mg/dL (70-110)
[2021-09-21] MEDS: PRIMIDONE 250 MG TAB PO SCH (21:04)
[2021-09-21] MEDS: MECLIZINE 12.5 MG TAB PO SCH (21:05)
[2021-09-21] MEDS: TOPIRAMATE 25 MG TAB PO SCH (21:05)
[2021-09-21] MEDS: ZINC SULFATE 220 MG CAP PO SCH (21:11)
[2021-09-21] MEDS ORDERED: CHOLESTYRAMINE (WITH SUGAR) 4 GM PACKET PO SCH (22:00)
[2021-09-21 22:30] LABS: Glucose,Whole Blood 178 mg/dL (70-110)
[2021-09-21] MEDS: CHOLESTYRAMINE (WITH SUGAR) 4 GM PACKET PO SCH (22:35)
[2021-09-22 06:50] LABS: Glucose,Whole Blood 145 mg/dL (70-110)
[2021-09-22] MEDS: APIXABAN 2.5 MG TABLET PO SCH ×2 (07:06→21:24)
[2021-09-22] MEDS: PHENAZOPYRIDINE 100 MG TAB PO SCH ×3 (07:06→21:23)
[2021-09-22] MEDS: LEVOTHYROXINE 75 MCG TAB PO SCH (07:07)
[2021-09-22] MEDS: GABAPENTIN 400 MG CAP PO SCH ×3 (07:07→21:24)
[2021-09-22] MEDS: MAGNESIUM OXIDE 400 MG TAB PO SCH (07:07)
[2021-09-22] MEDS: FIDAXOMICIN 200 MG TABLET PO SCH ×2 (07:07→21:27)
[2021-09-22] MEDS: MAG HYDROX/AL HYDROX/SIMETH 30 ML CUP PO SCH ×4 (07:07→21:24)
[2021-09-22] MEDS: CHOLESTYRAMINE (WITH SUGAR) 4 GM PACKET PO SCH ×2 (07:07→21:25)
[2021-09-22] MEDS: MULTIVITAMINS, THERA 1 EACH TAB PO SCH (07:07)
[2021-09-22] MEDS: CHOLECALCIFEROL 25 MCG (1000 IU) TABLET PO SCH (07:07)
[2021-09-22] MEDS: FAMOTIDINE 20 MG TAB PO SCH (07:07)
[2021-09-22] MEDS: DULoxetine HCL 30 MG CAPSULE.DR PO SCH ×2 (07:07→21:23)
[2021-09-22] MEDS: INSULIN ASPART (NovoLOG) 100 UNIT/ML VIAL SQ SCH ×4 (07:08→21:27)
[2021-09-22] MEDS: FLUTICASONE 50MCG/SPRAY NASAL 16GM EA NOSTRIL SCH ×2 (07:12→21:29)
[2021-09-22] MEDS: ACETAMINOPHEN TAB 325 MG TAB PO PRN ×2 (07:13→14:18)
[2021-09-22] MEDS: FLUTICASONE 110 MCG INHALER INHALATION SCH ×2 (07:25→19:43)
--- NOTE | 2021-09-22 07:33 | P.PN ---
Subjective Progress Note Date: 09/21/21 Principal diagnosis: Bacteremic and C. diff colitis Patient is a 71-year-old female was brought into the ER for evaluation of mental status changes patient did have a fever with evidence of gram-negative bacteremia and UTI also have significant diarrhea stool for C. diff came back negative CT abdominal pelvis done without contrast did not show any abnormality. On today's evaluation that is 09/21/2021, the patient denies any fever or any chills, patient is breathing comfortably on nasal cannula oxygen, patient denies chest pain, shortness of breath or cough, patient denies abdominal pain, the patient still having loose stool per the nursing staff Objective - Vital Signs Vital signs: Vital Signs Temp 97.8 F 09/21/21 14:00 Pulse 84 09/21/21 14:00 Resp 17 09/21/21 14:00 BP 132/62 09/21/21 14:00 Pulse Ox 97 09/21/21 14:00 FiO2 Intake & Output 09/20/21 09/21/21 09/21/21 18:59 06:59 18:59 Intake Total 180 Output Total 450 1150 Balance -270 -1150 Weight 97.9 kg 98 kg Intake: Oral 180 Output: Urine 450 1150 Other: Voiding Method External Catheter External Catheter # Voids 1 # Bowel Movements 3 2 - Exam GENERAL DESCRIPTION: An elderly female lying in bed in no distress RESPIRATORY SYSTEM: Unlabored breathing , decreased breath sounds at bases HEART: S1 S2 regular rate and rhythm , ABDOMEN: Soft , no tenderness EXTREMITIES: No edema feet - Labs CBC & Chem 7: 09/21/21 04:07 09/21/21 04:07 Labs: Abnormal Lab Results - Last 24 Hours (Table) 09/20/21 09/20/21 09/21/21 Range/Units 16:18 20:31 04:07 RBC 3.09 L (4.10-5.20) X 10*6/uL Hgb 9.2 L (12.0-15.0) g/dL Hct 29.4 L (37.2-46.3) % MCHC 31.3 L (32.0-37.0) g/dL MPV 9.4 L (9.5-12.2) fL Immature Gran # 0.06 H (0.00-0.04) X 10*3/uL BUN (9.0-27.0) mg/dL BUN/Creatinine Ratio (12.00-20.00) Ratio Glucose (70-110) mg/dL POC Glucose (mg/dL) 153 H 183 H (70-110) mg/dL Calcium (8.7-10.3) mg/dL 09/21/21 09/21/21 09/21/21 Range/Units 04:07 06:51 11:29 RBC (4.10-5.20) X 10*6/uL Hgb (12.0-15.0) g/dL Hct (37.2-46.3) % MCHC (32.0-37.0) g/dL MPV (9.5-12.2) fL Immature Gran # (0.00-0.04) X 10*3/uL BUN 3.8 L (9.0-27.0) mg/dL BUN/Creatinine Ratio 6.53 L (12.00-20.00) Ratio Glucose 138 H (70-110) mg/dL POC Glucose (mg/dL) 137 H 169 H (70-110) mg/dL Calcium 8.1 L (8.7-10.3) mg/dL Microbiology - Last 24 Hours (Table) 09/17/21 08:11 Blood Culture - Preliminary Blood No Growth after 96 hours 09/15/21 07:12 Blood Culture - Final Blood No Growth after 144 hours 09/14/21 13:47 Blood Culture - Final Blood No Growth after 144 hours 09/14/21 13:47 Blood Culture - Final Blood No Growth after 144 hours Assessment and Plan (1) Fever Current Visit: Yes Status: Acute Code(s): R50.9 - FEVER, UNSPECIFIED SNOMED Code(s): 935160078 Plan: 1patient presented to hospital with fever and mental status changes concerning for possible urinary source in this patient currently with no other obvious focus clinically not behaving as pneumonia abdominal postoperative examination and the patient right foot wound is currently healed with no evidence of any cellulitis. 2patient urine has been finalized with Proteus and blood cultures also finalized with Proteus patient currently being treated with Rocephin 2 g daily , we'll transition to Ceftin 7 days on discharge 3 patient with C. diff colitis did not responded well to oral vancomycin, as the patient was switched to deficid having diarrhea even and Questran for symptomatic relief Time with Patient: Less than 30
[2021-09-22 08:51] LABS: Basophils # (A) 0.04 X 10*3/uL (0.00-0.10); Basophils % (A) 0.5 %; Eosinophils # (A) 0.11 X 10*3/uL (0.04-0.35); Eosinophils % (A) 1.4 %; HCT 28.5 % (37.2-46.3); HGB 8.9 g/dL (12.0-15.0); Immature Grans, Automated 0.7 %; Lymphocytes % (A) 16.9 %; MCH 29.7 pg (27.0-32.0); MCHC 31.2 g/dL (32.0-37.0); Mean Platelet Volume 9.2 fL (9.5-12.2); Monocytes # (A) 0.64 X 10*3/uL (0.20-1.00); Monocytes % (A) 8.3 %; NRBC Per 100 WBC 0 /100 WBCS (0.0-0.0); Neutrophils # (A) 5.54 X 10*3/uL (1.80-7.70); Neutrophils % (A) 72.2 %; Platelet Count 265 X 10*3/uL (140-440); RDW 12.7 % (11.5-14.5); WBC 7.68 X 10*3/uL (4.50-10.00)
[2021-09-22] MEDS: LEVOTHYROXINE 88 MCG TAB PO SCH (10:17)
[2021-09-22 11:12] LABS: Glucose,Whole Blood 309 mg/dL (70-110)
--- NOTE | 2021-09-22 11:50 | P.PN ---
Subjective This is a 71 year old female with past medical history significant for COPD, Diabetes, DVT, thyroid, MRSA infection. She presents to the from rehab with concern for altered mental status and fever. There is also concern for UTI. Chest Xray showing mild atelectasis at the lung base which is increased. Urinalysis was completed showing cloudy urine, proteinuria, small blood, large luekocyte esterase, 66 WBC. She is confused and lethargic at the time of examination. She is arousable with touch. Denies chest pain, shortness of breath. She denies abdominal pain. She is a poor historian. She was recently discharged from this facility in June of this year where she underwent excision of bursa right foot and partial 5th toe metatarsal head resection of the right foot secondary to osteomyelitis and cellulitis of her right foot and cultures we re positive for MRSA at that time. Labs showing white count 12.5, sodium 131, BUN 42, creatinine 1.38, glucose is 180, TSH 5.330. Concern for UTI with sepsis as her procalcitonin level is 19.10. She has been started on IV ceftriaxone empirically and infectious disease has been consulted. Her T-max since admission is 102.3 axillary and she continues to be febrile. Her troponin was found to be elevated at 0.091 and proBNP 1890. There is no history of heart failure. She will also be admitted with telemetry monitoring and trend troponin levels. 09/14/2021 Patient continued with acute confusion and was febrile throughout the evening. She was started on IV vancomycin with concern for sepsis. Per nursing staff patient had a large amount of diarrhea, no reports of blood. She was upgraded to the steopdown unit. Abdominal pelvis CT was ordered with oral contrast however patient could not tolerate oral contrast per nursing. It was completed this morning again without oral contrast showing left lower lobe infiltrate with small effusion findings suggestive possibly of left lower lobe pneumonia, there is single nonobstructing right renal calcification, small, there is cholecystectomy and hysterectomy. No evidence of retroperitoneal adenopathy or hemorrhage, no evidence for hydronephrosis, no inflammatory changes in the mesentery. Stool was found to be positive for C. diff, IV vancomycin was discontinued patient is now on oral vancomycin. Pending urine culture, preliminary blood culture showing gram-negative bacilli. She has infectious disease consultation and also continues on IV ceftriaxone empirically. Blood cultures repeated today. Her mentation has improved she is now alert x 2-3 and answer questions appropriately. T-max 101 throughout the evening, she is afebrile, heart rate 64, blood pressure 160/76, she is 98% on 2 L nasal cannula. Labs today show white count 7.0, hemoglobin 10.4, sodium 136, chloride 108, BUN 25, creatinine 0.80, blood glucose in the 180s, calcium 7.8. Liver enzymes are improving AST 44, ALT 46. 09/15/2021 Patient evaluated today resting in bed. Mentation has worsened since yesterday she is alert x 1. She continues on IV ceftriaxone 2 gms and oral vancomycin. Urine culture showing proteus, her blood culture showing gram negative bacilli and repeat blood cultures have been done daily. Infectious disease is following the patient. Toston has been discontinued for now, she continues on oral tylenol for pain. She is afebrile today, heart rate 93, blood pressure 164/76, 94% on room air. She denies nausea, vomiting, abdomen is nontender today. No white count, hgb 11.0, sodium 133, potassium 3.6, magnesium 1.7, liver enzymes stable. We will replace electrolytes. 09/16/2021 Patient evaluated today resting in bed. She is alert x 3 today, she does complain of abdominal pain and discomfort mostly mid abdomen. She is not tender to palpation. Reports 5 liquid bowel movements throughout the night and she has 2 more today so far. No blood reported in the stool. She is being treated for proteus UTI and blood cultures today are positive for proteus miribilis as well. She is also being treated for C.Dif colitis as well with oral vanco. We will add zofran today. She continues on rocephin 2 grams and continues on IV fluids. She is being followed by infectious disease. Labs today showing white count 8.9, platelets 106, sodium 133, potassium 3.8, blood glucose in the 200s, magnesium 1.9. Temp of 97.6, blood pressure 146/66, 96% room air. 09/17/2021 Patient is resting in bed today, PT/OT on consult she will return to rehab when stable. Blood cultures x 2 positive for proteus repeat is pending, she is continued on IV ceftriaxone and also po vancomcyin and infectious disease consultation. She states that her diarrhea has slowed down and also states improvement in nausea with zofran. Mentation has continued to improve as well. V ital signs today showing a temp of 98.3, heart rate 66, Blood pressure 133/63, 98% room air. Labs today showing sodium 133, potassium 3.7, blood glucose in the 200s. 09/18/2021 Patient was evaluated today resting in bed during her bed bath. Her buttocks with excoriated also evidence for sacral pressure injury. Her diarrhea has improved she had one episode diarrhea for the evening and one episode at 10 AM today which has becoming more formed is no longer liquid. She can continue with zinc barrier pacer and calmoseptine and also sacral opifoam dressing for this. Her white count has improved is now 8.9, hemoglobin stable at 11.7, platelet count 106. Her most recent molecular panel from today showing a sodium level of 136, potassium 3.7, CO2 21.8, chloride 103, BUN 6.5, creatinine 0.8. Blood glucoses in the 150s, calcium 8.1. Her liver enzymes also improved. She is alert 3 today she is denying chest pain, shortness of breath. Her abdominal nausea and pain has improved. She was given IV zofran while in patient. She denies dysuria, hesitancy. No fever or chills. She denies chest pain, denies shortness of breath. Denies emesis. On assessment her lungs are clear, S1-S2 auscultated, abdomen is soft and nontender she has normoactive bowel sounds. She has no peripheral edema. Her mentation has improved alert 3 focal neurological exam is negative. With clearance from infectious disease patient will be discharged today on oral antibiotic therapy. 09/19/2021 Patient unfortuneatly had large loose BM in the evening and a large loose BM this morning. She reports tolerating diet wall, with some nausea. She is continued on IV zofran for this as well as maalox and pepcid. Infectious disease had recommended to keep patient overnight yesterday and as she has had 2 large l oose BMs we will recommend keeping patient and cancel discharge. Oral vancomycin has been discontinued and she has been started on 10 days of oral dificid. She is also on IV ceftriaxone 2 grams daily. Blood culture preliminary at 96 hours is showing clearing of proteus bacteremia. She did have T-max 100.1. over night as well. She is on nasal cannula at 3L with saturation 97%, she does state that she wears oxygen as needed at rehab. Sodium is 133 today. No white count. 09/20/2021 Patient continued to have 5 loose bowel movements throughout the evening and one large loose bowel movement today so far. She is tolerating oral diet and eating without difficulty. No nausea, no emesis. We will continue to keep patient for monitoring and continue on oral Dificin as recommended by infectious disease. She continues on IV ceftriaxone for proteus coverage. Otherwise she is alert and oriented, no acute events overnight. She does complain of some mild abdominal discomfort which is generalized. Repeat blood cultures are negative so far pending finalized cultures. She has been maintained in sinus rhythm. Heart rate today is 105, blood pressure 154/74, she is afebrile, 96% on 2 L nasal cannula. Her blood glucose today has also improved. Labs reviewed today, sodium 135, potassium 3.6, BUN 4.6, creatinine 0.6, calcium 8.1 I am resuming the care of the patient today on 09/21/2021 This is a pleasant 72 years old female with ongoing C. diff and urinary tract infection being followed closely by infectious disease team and kept on ceftriaxone 2 g and Dificid total 09/29. Also she is on gentle hydration with normal saline at 75 mL/h, however patient is still complaining of from lower abdominal pain and diarrhea, just a few bouts last night and was this morning and they were loose. KUB today is negative for acute process. Chest x-ray also no acute process. No fever today. She remains on liquids and Pepcid as well. Also she was started on Pyridium for dysuria Echocardiogram done 5-6 months ago showed ejection fraction more than 55% without to repeat echocardiogram 09/22/2021 Patient has been treated for her infection with UTI with ceftriaxone and C. diff with Dificid, her reportcalcitonin is trending down 19 down to 5.6. She tolerates diet well and she is improving gradually. Hemoglobin is 8.9. No more fever. She is hemodynamically stable. KUB and chest x-ray were negative. She was continued on gentle hydration and she still have diarrhea therefore cholestyramine was added today. Also she is on liquids 2.5 mg for her history of DVT. Echocardiogram is done and is pending Objective - Vital Signs Vital signs: Vital Signs Temp 98.4 F 09/22/21 07:24 Pulse 52 L 09/22/21 07:47 Resp 17 09/22/21 07:47 BP 131/60 09/22/21 07:24 Pulse Ox 94 L 09/22/21 07:25 FiO2 Intake & Output 09/21/21 09/22/21 09/22/21 18:59 06:59 18:59 Output Total 1105 250 6 Balance -1105 -250 -6 Output: Urine 1100 250 Stool 5 6 Other: Voiding Method External Catheter External Catheter - Exam -GENERAL: The patient is alert and oriented x3, not in any acute distress. Obese HEENT: Pupils are round and equally reacting to light. EOMI. No scleral icterus. No conjunctival pallor. Normocephalic, atraumatic. No pharyngeal erythema. No thyromegaly. CARDIOVASCULAR: S1 and S2 present. No murmurs, rubs, or gallops. PULMONARY: Chest is clear to auscultation, no wheezing or crackles. -ABDOMEN: Soft, mild lower abdominal tenderness with no rebound tenderness, no guarding, nondistended, normoactive bowel sounds. No palpable organomegaly. MUSCULOSKELETAL: No joint swelling or deformity. EXTREMITIES: No cyanosis, clubbing, or pedal edema. NEUROLOGICAL: Gross neurological examination did not reveal any focal deficits. SKIN: No rashes. no petechiae. - Labs CBC & Chem 7: 09/22/21 05:48 09/21/21 04:07 Labs: Abnormal Lab Results - Last 24 Hours (Table) 09/21/21 09/21/21 09/21/21 Range/Units 11:29 16:46 22:29 RBC (4.10-5.20) X 10*6/uL Hgb (12.0-15.0) g/dL Hct (37.2-46.3) % MCHC (32.0-37.0) g/dL MPV (9.5-12.2) fL Immature Gran # (0.00-0.04) X 10*3/uL POC Glucose (mg/dL) 169 H 174 H 178 H (70-110) mg/dL 09/22/21 09/22/21 Range/Units 05:48 06:48 RBC 3.00 L (4.10-5.20) X 10*6/uL Hgb 8.9 L (12.0-15.0) g/dL Hct 28.5 L (37.2-46.3) % MCHC 31.2 L (32.0-37.0) g/dL MPV 9.2 L (9.5-12.2) fL Immature Gran # 0.05 H (0.00-0.04) X 10*3/uL POC Glucose (mg/dL) 145 H (70-110) mg/dL Microbiology - Last 24 Hours (Table) 09/17/21 08:11 Blood Culture - Preliminary Blood No Growth after 96 hours 09/15/21 07:12 Blood Culture - Final Blood No Growth after 144 hours Assessment and Plan Assessment: sepsis, patient has proteus UTI, on IV ceftriaxone with infectious disease consultation Proteus Miribilis bacteremia C. Dif Colitis with ongoing diarrhea despite was oral vancomycin, she has been changed to po Dificid, continues with multiple loose BMs. Leukocytosis secondary to above, resolved anemia Acute kidney injury,has resolved with IV hydration Troponin leak from sepsis, EKG completed Decreased platelet count, resolved Elevated LFT's most likely from sepsis, improving History of UTI with MDRO Recent 5th toe resection secondary to osteomyelitis/cellulitis of right foot treated with IV vanco outpatient History COPD not in acute exacerbation Diabetes mellitus type 2 with hyperglycemia Hypertension Thyroid disorder with TSH 5 this admission Gastroesophageal Reflux Disease History DVT on eliquis Plan: She is a pleasant 72 years old female with UTI, C. diff, Proteus bacteremia Continue with ceftriaxone and Dificid [facility] infectious disease team on the case. Continue with gentle hydration Continue with monitoring hemoglobin and electrolytes Infectious disease team on the case Check echocardiogram Labs and medication were reviewed.. Continue same treatment. Continue with symptomatic treatment. Resume home medication. Monitor lytes and vitals. DVT and GI prophylaxis. Further recommendationsas per clinical course of the patient DVT prophylaxis: On Eliquis already GI Prophylaxis: Pepcid PT/OT: Recommended subacute rehab Prognosis is guarded
--- NOTE | 2021-09-22 14:02 | CA ---
Transthoracic Echo Report Name: Kristen Frost Age: 71 Gender: F : 1950 Exam Date: 09/22/2021 08:44 Exam Location: [facility] Ht (in): 64 Wt (lb): 216 Ordering Physician: Darius Madden MD Attending/Referring Phys: [id number], [place] Leverman Jacqui Muniz, [facility] Procedure CPT: Indications: Rule out heart disease Cardiac Hx: Technical Quality: Contrast 1: N/A Total Dose (mL): Contrast 2: Total Dose (mL): MEASUREMENTS (Male / Female) Normal Values 2D ECHO LV Diastolic Diameter PLAX 4.0 cm 4.2 - 5.9 / 3.9 - 5.3 cm LV Systolic Diameter PLAX 3.6 cm IVS Diastolic Thickness 1.2 cm 0.6 - 1.0 / 0.6 - 0.9 cm LVPW Diastolic Thickness 1.3 cm 0.6 - 1.0 / 0.6 - 0.9 cm LV Relative Wall Thickness 0.6 RV Internal Dim ED PLAX 3.8 cm LA Systolic Diameter LX 3.6 cm 3.0 - 4.0 / 2.7 - 3.8 cm M-MODE Aortic Root Diameter MM 3.3 cm LA Systolic Diameter MM 4.2 cm LA Ao Ratio MM 1.3 MV E Point Septal Separation 0.5 cm AV Cusp Separation MM 2.4 cm DOPPLER MV Area PHT 3.4 cm??? Mitral E Point Velocity 74.5 cm/s Mitral A Point Velocity 73.5 cm/s Mitral E to A Ratio 1.0 MV Deceleration Time 221.7 ms MV E' Velocity 5.8 cm/s Mitral E to MV E' Ratio 12.9 TR Peak Velocity 248.3 cm/s TR Peak Gradient 24.7 mmHg Right Ventricular Systolic Press 27.8 mmHg FINDINGS Left Ventricle Normal Left ventricular size, mild wall thickness, systolic function with no obvious regional wall motion abnormalities.left ventricular ejection fraction is estimated at 50-55 %. Right Ventricle Normal right ventricular size and function. Right Atrium Normal right atrial size. Left Atrium Left atrial size at the upper limits of normal. Mitral Valve Structurally normal mitral valve. Trace to mild mitral regurgitation. Aortic Valve Trileaflet aortic valve. Tricuspid Valve Structurally normal tricuspid valve. Trace to mild tricuspid regurgitation. Pulmonic Valve Pulmonic valve not well visualized. Pericardium Echo free space anterior to the right ventricle likely represents a fat pad. Aorta Normal size aortic root and proximal ascending aorta. CONCLUSIONS Normal LV size and systolic function Normal RV size and function Previewed by: Dr. Abdirahman Galvan MD (Electronically Signed) Final Date: 22 September 2021 14:01
[2021-09-22] MEDS: ONDANSETRON 4 MG/2 ML VIAL IVP PRN ×2 (14:21→21:53)
[2021-09-22 16:24] LABS: Glucose,Whole Blood 169 mg/dL (70-110)
[2021-09-22 21:03] LABS: Glucose,Whole Blood 271 mg/dL (70-110)
[2021-09-22] MEDS: MECLIZINE 12.5 MG TAB PO SCH (21:23)
[2021-09-22] MEDS: PRIMIDONE 250 MG TAB PO SCH (21:24)
[2021-09-22] MEDS: ZINC SULFATE 220 MG CAP PO SCH (21:24)
[2021-09-22] MEDS: TOPIRAMATE 25 MG TAB PO SCH (21:24)
[2021-09-22] MEDS: SODIUM CHLORIDE 0.9% 1,000 ML IV SCH (22:21)
[2021-09-22] MEDS: MELATONIN 3 MG TABLET PO SCH (23:25)
[2021-09-23] MEDS: LEVOTHYROXINE 75 MCG TAB PO SCH (05:41)
[2021-09-23 06:55] LABS: Glucose,Whole Blood 136 mg/dL (70-110)
[2021-09-23] MEDS: FLUTICASONE 110 MCG INHALER INHALATION SCH ×2 (07:14→20:41)
--- NOTE | 2021-09-23 08:10 | P.PN ---
Subjective Progress Note Date: 09/22/21 Principal diagnosis: Bacteremic and C. diff colitis Patient is a 71-year-old female was brought into the ER for evaluation of mental status changes patient did have a fever with evidence of gram-negative bacteremia and UTI also have significant diarrhea stool for C. diff came back negative CT abdominal pelvis done without contrast did not show any abnormality. On today's evaluation that is 09/22/2021, the patient remains to be afebrile, patient is breathing comfortably on nasal cannula oxygen, patient denies chest pain or cough, patient denies abdominal pain, the patient still complaining of diarrhea however has decreased in frequency and slightly forming up with the nursing staff Objective - Vital Signs Vital signs: Vital Signs Temp 98.4 F 09/22/21 07:24 Pulse 52 L 09/22/21 07:47 Resp 17 09/22/21 07:47 BP 131/60 09/22/21 07:24 Pulse Ox 94 L 09/22/21 07:25 FiO2 Intake & Output 09/21/21 09/22/21 09/22/21 18:59 06:59 18:59 Output Total 1105 250 6 Balance -1105 -250 -6 Output: Urine 1100 250 Stool 5 6 Other: Voiding Method External Catheter External Catheter - Exam GENERAL DESCRIPTION: An elderly female lying in bed in no distress RESPIRATORY SYSTEM: Unlabored breathing , decreased breath sounds at bases HEART: S1 S2 regular rate and rhythm , ABDOMEN: Soft , no tenderness EXTREMITIES: No edema feet - Labs CBC & Chem 7: 09/22/21 05:48 09/21/21 04:07 Labs: Abnormal Lab Results - Last 24 Hours (Table) 09/21/21 09/21/21 09/21/21 Range/Units 11:29 16:46 22:29 RBC (4.10-5.20) X 10*6/uL Hgb (12.0-15.0) g/dL Hct (37.2-46.3) % MCHC (32.0-37.0) g/dL MPV (9.5-12.2) fL Immature Gran # (0.00-0.04) X 10*3/uL POC Glucose (mg/dL) 169 H 174 H 178 H (70-110) mg/dL 09/22/21 09/22/21 Range/Units 05:48 06:48 RBC 3.00 L (4.10-5.20) X 10*6/uL Hgb 8.9 L (12.0-15.0) g/dL Hct 28.5 L (37.2-46.3) % MCHC 31.2 L (32.0-37.0) g/dL MPV 9.2 L (9.5-12.2) fL Immature Gran # 0.05 H (0.00-0.04) X 10*3/uL POC Glucose (mg/dL) 145 H (70-110) mg/dL Microbiology - Last 24 Hours (Table) 09/17/21 08:11 Blood Culture - Preliminary Blood No Growth after 96 hours 09/15/21 07:12 Blood Culture - Final Blood No Growth after 144 hours Assessment and Plan (1) Fever Current Visit: Yes Status: Acute Code(s): R50.9 - FEVER, UNSPECIFIED SNOMED Code(s): 261067007 Plan: 1patient presented to hospital with fever and mental status changes concerning for possible urinary source in this patient currently with no other obvious focus clinically not behaving as pneumonia abdominal postoperative examination and the patient right foot wound is currently healed with no evidence of any cellulitis. 2patient urine has been finalized with Proteus and blood cultures also finalized with Proteus patient currently being treated with Rocephin 2 g daily , we'll transition to Ceftin on discharge 3 patient with C. diff colitis did not responded well to oral vancomycin, the patient was switched to deficid and Questran was added for symptomatic relief seemed to be clinically improving plan is to finish a ten-day course of oral def icid Time with Patient: Less than 30
[2021-09-23] MEDS: ONDANSETRON 4 MG/2 ML VIAL IVP PRN ×2 (08:13→22:05)
[2021-09-23 09:42] LABS: Basophils # (A) 0.05 X 10*3/uL (0.00-0.10); Basophils % (A) 0.7 %; Eosinophils # (A) 0.15 X 10*3/uL (0.04-0.35); Eosinophils % (A) 2.1 %; HCT 28.3 % (37.2-46.3); HGB 8.9 g/dL (12.0-15.0); Immature Grans, Automated 0.6 %; Lymphocytes # (A) 1.44 X 10*3/uL (0.90-5.00); Lymphocytes % (A) 19.9 %; MCH 30.1 pg (27.0-32.0); MCHC 31.4 g/dL (32.0-37.0); MCV 95.6 fL (80.0-97.0); Mean Platelet Volume 9.2 fL (9.5-12.2); Monocytes # (A) 0.64 X 10*3/uL (0.20-1.00); Monocytes % (A) 8.9 %; NRBC Per 100 WBC 0 /100 WBCS (0.0-0.0); Neutrophils % (A) 67.8 %; Platelet Count 274 X 10*3/uL (140-440); RBC 2.96 X 10*6/uL (4.10-5.20); RDW 12.7 % (11.5-14.5); WBC 7.22 X 10*3/uL (4.50-10.00)
[2021-09-23 09:44] LABS: African American GFR (CKD) 104.3 (60.0-200.0); Anion Gap 8.5 mmol/L (10.00-18.00); BUN/Creat Ratio 7.93 Ratio (12.00-20.00); Blood Urea Nitrogen 4.9 mg/dL (9.0-27.0); Calcium 8.3 mg/dL (8.7-10.3); Carbon Dioxide 25.8 mmol/L (20.0-27.5); Potassium 4.1 mmol/L (3.5-5.5)
[2021-09-23] MEDS: INSULIN ASPART (NovoLOG) 100 UNIT/ML VIAL SQ SCH ×4 (10:06→22:32)
[2021-09-23] MEDS: APIXABAN 2.5 MG TABLET PO SCH ×2 (10:07→22:25)
[2021-09-23] MEDS: FAMOTIDINE 20 MG TAB PO SCH (10:07)
[2021-09-23] MEDS: GABAPENTIN 400 MG CAP PO SCH ×3 (10:07→22:25)
[2021-09-23] MEDS: MULTIVITAMINS, THERA 1 EACH TAB PO SCH (10:08)
[2021-09-23] MEDS: FIDAXOMICIN 200 MG TABLET PO SCH ×2 (10:08→22:26)
[2021-09-23] MEDS: CHOLECALCIFEROL 25 MCG (1000 IU) TABLET PO SCH (10:08)
[2021-09-23] MEDS: CHOLESTYRAMINE (WITH SUGAR) 4 GM PACKET PO SCH ×2 (10:09→22:26)
[2021-09-23] MEDS: DULoxetine HCL 30 MG CAPSULE.DR PO SCH ×2 (10:09→22:26)
[2021-09-23] MEDS: FLUTICASONE 50MCG/SPRAY NASAL 16GM EA NOSTRIL SCH ×2 (10:10→22:33)
[2021-09-23] MEDS: MAG HYDROX/AL HYDROX/SIMETH 30 ML CUP PO SCH ×4 (10:20→22:25)
[2021-09-23] MEDS: MAGNESIUM OXIDE 400 MG TAB PO SCH (10:26)
[2021-09-23] MEDS: PHENAZOPYRIDINE 100 MG TAB PO SCH ×3 (10:26→22:26)
[2021-09-23 12:05] LABS: Glucose,Whole Blood 147 mg/dL (70-110)
[2021-09-23] MEDS: SODIUM CHLORIDE 0.9% 1,000 ML IV SCH ×2 (13:25→22:36)
[2021-09-23] MEDS ORDERED: HYDROcodone/APAP 5-325MG 1 EACH TAB PO PRN (15:06)
[2021-09-23 16:50] LABS: Glucose,Whole Blood 204 mg/dL (70-110)
--- NOTE | 2021-09-23 17:13 | XR ---
EXAMINATION TYPE: XR KUB DATE OF EXAM: 09/23/2021 COMPARISON: NONE HISTORY: Abdominal pain TECHNIQUE: 2 views FINDINGS: Two-view supine were obtained and show no sign of intestinal obstruction or pneumoperitoneu m. Fecal pattern is normal. There is no evidence of a mass. There are clips from cholecystectomy. Anthony g bases are clear. There is bilateral hip prosthesis. No calcifications seen over the kidneys. IMPRESSION: Nonacute abdomen.
--- NOTE | 2021-09-23 19:14 | P.PN ---
Subjective This is a 71 year old female with past medical history significant for COPD, Diabetes, DVT, thyroid, MRSA infection. She presents to the from rehab with concern for altered mental status and fever. There is also concern for UTI. Chest Xray showing mild atelectasis at the lung base which is increased. Urinalysis was completed showing cloudy urine, proteinuria, small blood, large luekocyte esterase, 66 WBC. She is confused and lethargic at the time of examination. She is arousable with touch. Denies chest pain, shortness of breath. She denies abdominal pain. She is a poor historian. She was recently discharged from this facility in June of this year where she underwent excision of bursa right foot and partial 5th toe metatarsal head resection of the right foot secondary to osteomyelitis and cellulitis of her right foot and cultures we re positive for MRSA at that time. Labs showing white count 12.5, sodium 131, BUN 42, creatinine 1.38, glucose is 180, TSH 5.330. Concern for UTI with sepsis as her procalcitonin level is 19.10. She has been started on IV ceftriaxone empirically and infectious disease has been consulted. Her T-max since admission is 102.3 axillary and she continues to be febrile. Her troponin was found to be elevated at 0.091 and proBNP 1890. There is no history of heart failure. She will also be admitted with telemetry monitoring and trend troponin levels. 09/14/2021 Patient continued with acute confusion and was febrile throughout the evening. She was started on IV vancomycin with concern for sepsis. Per nursing staff patient had a large amount of diarrhea, no reports of blood. She was upgraded to the steopdown unit. Abdominal pelvis CT was ordered with oral contrast however patient could not tolerate oral contrast per nursing. It was completed this morning again without oral contrast showing left lower lobe infiltrate with small effusion findings suggestive possibly of left lower lobe pneumonia, there is single nonobstructing right renal calcification, small, there is cholecystectomy and hysterectomy. No evidence of retroperitoneal adenopathy or hemorrhage, no evidence for hydronephrosis, no inflammatory changes in the mesentery. Stool was found to be positive for C. diff, IV vancomycin was discontinued patient is now on oral vancomycin. Pending urine culture, preliminary blood culture showing gram-negative bacilli. She has infectious disease consultation and also continues on IV ceftriaxone empirically. Blood cultures repeated today. Her mentation has improved she is now alert x 2-3 and answer questions appropriately. T-max 101 throughout the evening, she is afebrile, heart rate 64, blood pressure 160/76, she is 98% on 2 L nasal cannula. Labs today show white count 7.0, hemoglobin 10.4, sodium 136, chloride 108, BUN 25, creatinine 0.80, blood glucose in the 180s, calcium 7.8. Liver enzymes are improving AST 44, ALT 46. 09/15/2021 Patient evaluated today resting in bed. Mentation has worsened since yesterday she is alert x 1. She continues on IV ceftriaxone 2 gms and oral vancomycin. Urine culture showing proteus, her blood culture showing gram negative bacilli and repeat blood cultures have been done daily. Infectious disease is following the patient. Renovo has been discontinued for now, she continues on oral tylenol for pain. She is afebrile today, heart rate 93, blood pressure 164/76, 94% on room air. She denies nausea, vomiting, abdomen is nontender today. No white count, hgb 11.0, sodium 133, potassium 3.6, magnesium 1.7, liver enzymes stable. We will replace electrolytes. 09/16/2021 Patient evaluated today resting in bed. She is alert x 3 today, she does complain of abdominal pain and discomfort mostly mid abdomen. She is not tender to palpation. Reports 5 liquid bowel movements throughout the night and she has 2 more today so far. No blood reported in the stool. She is being treated for proteus UTI and blood cultures today are positive for proteus miribilis as well. She is also being treated for C.Dif colitis as well with oral vanco. We will add zofran today. She continues on rocephin 2 grams and continues on IV fluids. She is being followed by infectious disease. Labs today showing white count 8.9, platelets 106, sodium 133, potassium 3.8, blood glucose in the 200s, magnesium 1.9. Temp of 97.6, blood pressure 146/66, 96% room air. 09/17/2021 Patient is resting in bed today, PT/OT on consult she will return to rehab when stable. Blood cultures x 2 positive for proteus repeat is pending, she is continued on IV ceftriaxone and also po vancomcyin and infectious disease consultation. She states that her diarrhea has slowed down and also states improvement in nausea with zofran. Mentation has continued to improve as well. V ital signs today showing a temp of 98.3, heart rate 66, Blood pressure 133/63, 98% room air. Labs today showing sodium 133, potassium 3.7, blood glucose in the 200s. 09/18/2021 Patient was evaluated today resting in bed during her bed bath. Her buttocks with excoriated also evidence for sacral pressure injury. Her diarrhea has improved she had one episode diarrhea for the evening and one episode at 10 AM today which has becoming more formed is no longer liquid. She can continue with zinc barrier pacer and calmoseptine and also sacral opifoam dressing for this. Her white count has improved is now 8.9, hemoglobin stable at 11.7, platelet count 106. Her most recent molecular panel from today showing a sodium level of 136, potassium 3.7, CO2 21.8, chloride 103, BUN 6.5, creatinine 0.8. Blood glucoses in the 150s, calcium 8.1. Her liver enzymes also improved. She is alert 3 today she is denying chest pain, shortness of breath. Her abdominal nausea and pain has improved. She was given IV zofran while in patient. She denies dysuria, hesitancy. No fever or chills. She denies chest pain, denies shortness of breath. Denies emesis. On assessment her lungs are clear, S1-S2 auscultated, abdomen is soft and nontender she has normoactive bowel sounds. She has no peripheral edema. Her mentation has improved alert 3 focal neurological exam is negative. With clearance from infectious disease patient will be discharged today on oral antibiotic therapy. 09/19/2021 Patient unfortuneatly had large loose BM in the evening and a large loose BM this morning. She reports tolerating diet wall, with some nausea. She is continued on IV zofran for this as well as maalox and pepcid. Infectious disease had recommended to keep patient overnight yesterday and as she has had 2 large l oose BMs we will recommend keeping patient and cancel discharge. Oral vancomycin has been discontinued and she has been started on 10 days of oral dificid. She is also on IV ceftriaxone 2 grams daily. Blood culture preliminary at 96 hours is showing clearing of proteus bacteremia. She did have T-max 100.1. over night as well. She is on nasal cannula at 3L with saturation 97%, she does state that she wears oxygen as needed at rehab. Sodium is 133 today. No white count. 09/20/2021 Patient continued to have 5 loose bowel movements throughout the evening and one large loose bowel movement today so far. She is tolerating oral diet and eating without difficulty. No nausea, no emesis. We will continue to keep patient for monitoring and continue on oral Dificin as recommended by infectious disease. She continues on IV ceftriaxone for proteus coverage. Otherwise she is alert and oriented, no acute events overnight. She does complain of some mild abdominal discomfort which is generalized. Repeat blood cultures are negative so far pending finalized cultures. She has been maintained in sinus rhythm. Heart rate today is 105, blood pressure 154/74, she is afebrile, 96% on 2 L nasal cannula. Her blood glucose today has also improved. Labs reviewed today, sodium 135, potassium 3.6, BUN 4.6, creatinine 0.6, calcium 8.1 I am resuming the care of the patient today on 09/21/2021 This is a pleasant 72 years old female with ongoing C. diff and urinary tract infection being followed closely by infectious disease team and kept on ceftriaxone 2 g and Dificid total 09/29. Also she is on gentle hydration with normal saline at 75 mL/h, however patient is still complaining of from lower abdominal pain and diarrhea, just a few bouts last night and was this morning and they were loose. KUB today is negative for acute process. Chest x-ray also no acute process. No fever today. She remains on liquids and Pepcid as well. Also she was started on Pyridium for dysuria Echocardiogram done 5-6 months ago showed ejection fraction more than 55% without to repeat echocardiogram 09/22/2021 Patient has been treated for her infection with UTI with ceftriaxone and C. diff with Dificid, her reportcalcitonin is trending down 19 down to 5.6. She tolerates diet well and she is improving gradually. Hemoglobin is 8.9. No more fever. She is hemodynamically stable. KUB and chest x-ray were negative. She was continued on gentle hydration and she still have diarrhea therefore cholestyramine was added today. Also she is on liquids 2.5 mg for her history of DVT. Echocardiogram is done and is pending 09/23/2021 Patient still have diarrhea but looks its improvement, she has to loose stools last night and once this morning. She still complaining of from lower abdominal pain, KUB repeated again today it was nonobstructive panel. Renovo as prescribed for the patient for pain relief and help with diarrhea as well, patient pushed take pain medication. Currently she remains on Rocephin 2 g and Dificid which will help treat in her Proteus bacteremia as well as C. diff infection. Patient will be discharge on oral antibiotics. The patient looks comfortable not in distress and she tolerates diet well. Need to be placed today because of poor IV Possible discharge in 24-48 hours if she keeps improving Patient will benefit from ECF on discharge. Discussed with the bedside nurse and outreach and education social worker Objective - Vital Signs Vital signs: Vital Signs Temp 99.0 F 09/23/21 08:00 Pulse 50 L 09/23/21 08:00 Resp 14 09/23/21 08:00 BP 132/70 09/23/21 08:00 Pulse Ox 94 L 09/23/21 08:00 FiO2 Intake & Output 09/22/21 09/23/21 09/23/21 18:59 06:59 18:59 Output Total 1206 2402 Balance -1206 -2402 Output: Urine 1200 2400 Stool 6 2 Other: Voiding Method External Catheter Incontinent External Catheter # Voids 2 # Bowel Movements 3 0 - Exam -GENERAL: The patient is alert and oriented x3, not in any acute distress. Obe se HEENT: Pupils are round and equally reacting to light. EOMI. No scleral icterus. No conjunctival pallor. Normocephalic, atraumatic. No pharyngeal erythema. No thyromegaly. CARDIOVASCULAR: S1 and S2 present. No murmurs, rubs, or gallops. PULMONARY: Chest is clear to auscultation, no wheezing or crackles. -ABDOMEN: Soft, mild lower abdominal tenderness with no rebound tenderness, no guarding, nondistended, normoactive bowel sounds. No palpable organomegaly. MUSCULOSKELETAL: No joint swelling or deformity. EXTREMITIES: No cyanosis, clubbing, or pedal edema. NEUROLOGICAL: Gross neurological examination did not reveal any focal deficits. SKIN: No rashes. no petechiae. - Labs CBC & Chem 7: 09/23/21 05:52 09/23/21 05:52 Labs: Abnormal Lab Results - Last 24 Hours (Table) 09/22/21 09/22/21 09/22/21 Range/Units 11:10 16:22 21:02 RBC (4.10-5.20) X 10*6/uL Hgb (12.0-15.0) g/dL Hct (37.2-46.3) % MCHC (32.0-37.0) g/dL MPV (9.5-12.2) fL Anion Gap (10.00-18.00) mmol/L BUN (9.0-27.0) mg/dL BUN/Creatinine Ratio (12.00-20.00) Ratio Glucose (70-110) mg/dL POC Glucose (mg/dL) 309 H 169 H 271 H (70-110) mg/dL Calcium (8.7-10.3) mg/dL Procalcitonin (0.02-0.09) ng/mL 09/23/21 09/23/21 09/23/21 Range/Units 05:52 05:52 05:52 RBC 2.96 L (4.10-5.20) X 10*6/uL Hgb 8.9 L (12.0-15.0) g/dL Hct 28.3 L (37.2-46.3) % MCHC 31.4 L (32.0-37.0) g/dL MPV 9.2 L (9.5-12.2) fL Anion Gap 8.50 L (10.00-18.00) mmol/L BUN 4.9 L (9.0-27.0) mg/dL BUN/Creatinine Ratio 7.93 L (12.00-20.00) Ratio Glucose 133 H (70-110) mg/dL POC Glucose (mg/dL) (70-110) mg/dL Calcium 8.3 L (8.7-10.3) mg/dL Procalcitonin 0.18 H (0.02-0.09) ng/mL 09/23/21 Range/Units 06:53 RBC (4.10-5.20) X 10*6/uL Hgb (12.0-15.0) g/dL Hct (37.2-46.3) % MCHC (32.0-37.0) g/dL MPV (9.5-12.2) fL Anion Gap (10.00-18.00) mmol/L BUN (9.0-27.0) mg/dL BUN/Creatinine Ratio (12.00-20.00) Ratio Glucose (70-110) mg/dL POC Glucose (mg/dL) 136 H (70-110) mg/dL Calcium (8.7-10.3) mg/dL Procalcitonin (0.02-0.09) ng/mL Microbiology - Last 24 Hours (Table) 09/17/21 08:11 Blood Culture - Final Blood No Growth after 144 hours Assessment and Plan Assessment: sepsis, patient has proteus UTI, on IV ceftriaxone with infectious disease consultation Proteus Miribilis bacteremia C. Dif Colitis with ongoing diarrhea despite was oral vancomycin, she has been changed to po Dificid, continues with multiple loose BMs. Leukocytosis secondary to above, resolved anemia Acute kidney injury,has resolved with IV hydration Troponin leak from sepsis, EKG completed Decreased platelet count, resolved Elevated LFT's most likely from sepsis, improving History of UTI with MDRO Recent 5th toe resection secondary to osteomyelitis/cellulitis of right foot treated with IV vanco outpatient History COPD not in acute exacerbation Diabetes mellitus type 2 with hyperglycemia Hypertension Thyroid disorder with TSH 5 this admission Gastroesophageal Reflux Disease History DVT on eliquis Plan: She is a pleasant 72 years old female with UTI, C. diff, Proteus bacteremia Continue with ceftriaxone and Dificid [facility] infectious disease team on the case. Continue with gentle hydration Continue with monitoring hemoglobin and electrolytes Infectious disease team on the case Check echocardiogram Labs and medication were reviewed.. Continue same treatment. Continue with symptomatic treatment. Resume home medication. Monitor lytes and vitals. DVT and GI prophylaxis. Further recommendationsas per clinical course of the patient DVT prophylaxis: On Eliquis already GI Prophylaxis: Pepcid PT/OT: Recommended subacute rehab Prognosis is guarded
[2021-09-23 20:19] LABS: Glucose,Whole Blood 153 mg/dL (70-110)
[2021-09-23] MEDS: ZINC SULFATE 220 MG CAP PO SCH (22:25)
[2021-09-23] MEDS: TOPIRAMATE 25 MG TAB PO SCH (22:26)
[2021-09-23] MEDS: MECLIZINE 12.5 MG TAB PO SCH (22:27)
[2021-09-23] MEDS: MELATONIN 3 MG TABLET PO SCH (22:36)
[2021-09-23] MEDS: PRIMIDONE 250 MG TAB PO SCH (22:36)
[2021-09-24] MEDS: LEVOTHYROXINE 88 MCG TAB PO SCH (05:27)
[2021-09-24 06:49] LABS: Glucose,Whole Blood 154 mg/dL (70-110)
--- NOTE | 2021-09-24 07:08 | P.PN ---
Subjective Progress Note Date: 09/23/21 Principal diagnosis: Bacteremic and C. diff colitis Patient is a 71-year-old female was brought into the ER for evaluation of mental status changes patient did have a fever with evidence of gram-negative bacteremia and UTI also have significant diarrhea stool for C. diff came back negative CT abdominal pelvis done without contrast did not show any abnormality. On today's evaluation that is 09/23/2021, the patient denies any fever or chills, patient is breathing comfortably on nasal cannula oxygen, patient denies chest pain or cough, patient denies abdominal pain, the patient diarrhea has decreased in frequency per nursing staff and is forming up Objective - Vital Signs Vital signs: Vital Signs Temp 99.0 F 09/23/21 08:00 Pulse 50 L 09/23/21 08:00 Resp 14 09/23/21 08:00 BP 132/70 09/23/21 08:00 Pulse Ox 94 L 09/23/21 08:00 FiO2 Intake & Output 09/22/21 09/23/21 09/23/21 18:59 06:59 18:59 Output Total 1206 2402 Balance -1206 -2402 Output: Urine 1200 2400 Stool 6 2 Other: Voiding Method External Catheter Incontinent External Catheter # Voids 2 # Bowel Movements 3 0 - Exam GENERAL DESCRIPTION: An elderly female lying in bed in no distress RESPIRATORY SYSTEM: Unlabored breathing , decreased breath sounds at bases HEART: S1 S2 regular rate and rhythm , ABDOMEN: Soft , no tenderness EXTREMITIES: No edema feet - Labs CBC & Chem 7: 09/23/21 05:52 09/23/21 05:52 Labs: Abnormal Lab Results - Last 24 Hours (Table) 09/22/21 09/22/21 09/22/21 Range/Units 11:10 16:22 21:02 RBC (4.10-5.20) X 10*6/uL Hgb (12.0-15.0) g/dL Hct (37.2-46.3) % MCHC (32.0-37.0) g/dL MPV (9.5-12.2) fL Anion Gap (10.00-18.00) mmol/L BUN (9.0-27.0) mg/dL BUN/Creatinine Ratio (12.00-20.00) Ratio Glucose (70-110) mg/dL POC Glucose (mg/dL) 309 H 169 H 271 H (70-110) mg/dL Calcium (8.7-10.3) mg/dL Procalcitonin (0.02-0.09) ng/mL 09/23/21 09/23/21 09/23/21 Range/Units 05:52 05:52 05:52 RBC 2.96 L (4.10-5.20) X 10*6/uL Hgb 8.9 L (12.0-15.0) g/dL Hct 28.3 L (37.2-46.3) % MCHC 31.4 L (32.0-37.0) g/dL MPV 9.2 L (9.5-12.2) fL Anion Gap 8.50 L (10.00-18.00) mmol/L BUN 4.9 L (9.0-27.0) mg/dL BUN/Creatinine Ratio 7.93 L (12.00-20.00) Ratio Glucose 133 H (70-110) mg/dL POC Glucose (mg/dL) (70-110) mg/dL Calcium 8.3 L (8.7-10.3) mg/dL Procalcitonin 0.18 H (0.02-0.09) ng/mL 09/23/21 Range/Units 06:53 RBC (4.10-5.20) X 10*6/uL Hgb (12.0-15.0) g/dL Hct (37.2-46.3) % MCHC (32.0-37.0) g/dL MPV (9.5-12.2) fL Anion Gap (10.00-18.00) mmol/L BUN (9.0-27.0) mg/dL BUN/Creatinine Ratio (12.00-20.00) Ratio Glucose (70-110) mg/dL POC Glucose (mg/dL) 136 H (70-110) mg/dL Calcium (8.7-10.3) mg/dL Procalcitonin (0.02-0.09) ng/mL Microbiology - Last 24 Hours (Table) 09/17/21 08:11 Blood Culture - Preliminary Blood No Growth after 120 hours Assessment and Plan (1) Fever Current Visit: Yes Status: Acute Code(s): R50.9 - FEVER, UNSPECIFIED SNOMED Code(s): 126542383 Plan: 1patient presented to hospital with fever and mental status changes concerning for possible urinary source in this patient currently with no other obvious focus clinically not behaving as pneumonia abdominal postoperative examination and the patient right foot wound is currently healed with no evidence of any cellulitis. 2patient urine has been finalized with Proteus and blood cultures also finalized with Proteus patient currently being treated with Rocephin 2 g daily and has received about 10 days of antibiotic keeping in mind her C. diff colitis we will discontinue Rocephin after tomorrow's dose 3 patient with C. diff colitis did not responded well to oral vancomycin, the patient to continue with oral deficit and Questran as needed finish a ten-day course of therapy Time with Patient: Less than 30
[2021-09-24] MEDS: FLUTICASONE 110 MCG INHALER INHALATION SCH (07:31)
[2021-09-24] MEDS: DULoxetine HCL 30 MG CAPSULE.DR PO SCH (08:16)
[2021-09-24] MEDS: MAG HYDROX/AL HYDROX/SIMETH 30 ML CUP PO SCH ×2 (08:16→12:38)
[2021-09-24] MEDS: FIDAXOMICIN 200 MG TABLET PO SCH (08:16)
[2021-09-24] MEDS: APIXABAN 2.5 MG TABLET PO SCH (08:17)
[2021-09-24] MEDS: FAMOTIDINE 20 MG TAB PO SCH (08:17)
[2021-09-24] MEDS: PHENAZOPYRIDINE 100 MG TAB PO SCH (08:17)
[2021-09-24] MEDS: MAGNESIUM OXIDE 400 MG TAB PO SCH (08:17)
[2021-09-24] MEDS: GABAPENTIN 400 MG CAP PO SCH ×2 (08:17→16:58)
[2021-09-24] MEDS: CHOLECALCIFEROL 25 MCG (1000 IU) TABLET PO SCH (08:18)
[2021-09-24] MEDS: MULTIVITAMINS, THERA 1 EACH TAB PO SCH (08:18)
[2021-09-24] MEDS: INSULIN ASPART (NovoLOG) 100 UNIT/ML VIAL SQ SCH ×3 (08:18→16:58)
[2021-09-24] MEDS: FLUTICASONE 50MCG/SPRAY NASAL 16GM EA NOSTRIL SCH (08:25)
[2021-09-24] MEDS ORDERED: CHOLESTYRAMINE (WITH SUGAR) 4 GM PACKET PO SCH (10:00)
[2021-09-24 11:21] LABS: Glucose,Whole Blood 209 mg/dL (70-110)
[2021-09-24] MEDS ORDERED: HYDROcodone/APAP 5-325MG 1 EACH TAB PO STA (11:54)
[2021-09-24] MEDS: SODIUM CHLORIDE 0.9% 1,000 ML IV SCH (12:38)
[2021-09-24 14:36] VITALS: BP 127/67; PULSE 58; RESP 17; TEMP 97.9
--- NOTE | 2021-09-24 15:36 | P.DS ---
Providers Date of admission: 09/14/21 12:13 Attending physician: Esteban Villeda Consults: 09/13/21 14:23 Consult Physician Routine Consulting Provider: Kenyon Fine Consult Reason/Comments: fever Do you want consulting provider notified?: Yes Primary care physician: Tiarra Marycruz [facility] Course: diagnosis: sepsis, patient has proteus UTI, finish her therapy with antibiotic with infectious disease consultation Proteus Miribilis bacteremia, finished her therapy with antibiotics C. Dif Colitis with ongoing diarrhea despite was oral vancomycin, she has been changed to po Dificid, improving Leukocytosis secondary to above, resolved anemia Acute kidney injury,has resolved with IV hydration Troponin leak from sepsis, no chest pain and normal Decreased platelet count, resolved Elevated LFT's most likely from sepsis, improving History of UTI with MDRO Recent 5th toe resection secondary to osteomyelitis/cellulitis of right foot treated with IV vanco outpatient History COPD not in acute exacerbation Diabetes mellitus type 2 with hyperglycemia Hypertension Thyroid disorder with TSH 5 this admission Gastroesophageal Reflux Disease History DVT on [facility] course: This is a 71 year old female with past medical history significant for COPD, Diabetes, DVT, thyroid, MRSA infection. She presents to the from rehab with concern for altered mental status and fever. Patient found to have acute urinary tract infection and Proteus bacteremia and she was treated with antibiotics ceftriaxone with infectious disease team following her closely. Also patient had evidence of C. diff colitis and she did not respond well to oral vancomycin so antibiotic was administered deficid. She will need to finish 10 day course of this antibiotic as per ID team. Patient showed interval improvement and on the day of discharge she is fully awake and alert, she tolerates that well, she has some abdominal pain responded well to treatment with narcotics, at the time of discharge she rates her pain in the abdomen as 0/10 i.e. no pain. She still have loose stool which is responding to therapy with antibiotic and cholestyramine. Other than that she denies any chest pain or dyspnea. No dysuria or urgency. No fever. No coughing. No weakness or numbness or dizziness. Patient feels she can be discharged to rehab today. Patient was cleared for discharge by infectious disease team Problems and management plan were discussed with the patient and he verbalized understanding and acceptance Patient was found stable and can be discharged to F in regards to prognosis however he needs follow-up as an outpatient. Patient was instructed to follow up with PCP Dr. Joel within one week and patient agrees Patient also was instructed to follow up with Dr. Fine in one week, also patient referred to urologist as an outpatient Dr. Diaz to follow-up in 1-2 weeks when she was informed and she agrees Physical exam -Gen: patient is a AAOx3, no distress. Obese CVS: S1-S2, RRR, no murmur Lungs: B/L CTA, no wheezing Abdomen: soft, no distention, no tenderness, positive bowel sounds Extremity: no leg edema or induration Time spent more than 35 minutes Patient Condition at Discharge: Fair Plan - Discharge Summary Discharge Rx Participant: Yes New Discharge Prescriptions: New INSULIN ASPART (NovoLOG) [NovoLOG (formulary)] 0 unit SQ ACHS each Gabapentin [Neurontin] 400 mg PO TID #6 cap HYDROcodone/APAP 5-325MG [Chancellor 5-325] 1 each PO Q6HR PRN #12 tab PRN Reason: Pain Cholestyramine (with Sugar) [Cholestyramine Packet] 4 gm PO BID 7 Days #14 packet Melatonin 3 mg PO HS PRN tab PRN Reason: Insomnia Continue Levothyroxine Sodium [Synthroid] 150 mcg PO SUTUTHSA Levothyroxine Sodium [Synthroid] 175 mcg PO MOWEFR Nitroglycerin Sl Tabs [Nitrostat] 0.4 mg SL Q5M PRN PRN Reason: Chest Pain Zinc 50 mg PO HS Meclizine [Antivert] 12.5 mg PO HS Famotidine [Pepcid] 20 mg PO BID@0600,2100 Fluticasone Propionate [Flovent Hfa 110 mcg] 1 puff INHALATION RT-BID Mag Hydrox/Al Hydrox/Simeth [Maalox] 20 ml PO QID ml Guaifenesin/Dextromethorphan [guaiFENesin DM] 5 ml PO Q4H PRN PRN Reason: Cough Fluticasone Nasal [place] [Flonase Nasal [place]] 1 spray EA NOSTRIL BID DULoxetine HCL [Cymbalta] 30 mg PO BID Apixaban [Eliquis] 2.5 mg PO BID #0 Cyclobenzaprine [Flexeril] 10 mg PO Q12H PRN PRN Reason: Muscle Spasm Multivitamins, Thera [Multivitamin (formulary)] 1 tab PO DAILY Cholecalciferol [Vitamin D3 (25 Mcg = 1000 Iu)] 25 mcg PO DAILY Cranberry Fruit Concentrate [Azo Cranberry] 250 mg PO HS Acetaminophen Tab [Tylenol] 325 mg PO Q6HR PRN PRN Reason: Fever And/ Or Pain Topiramate [Topamax] 25 mg PO HS ondansetron HCL [Zofran Oral Soln] 4 mg PO Q6H PRN PRN Reason: Nausea Primidone 250 mg PO HS #3 tab Discontinued Loperamide HCl [Imodium A-D] 2 mg PO BID Dicyclomine HCl 10 mg PO Q6H PRN PRN Reason: Pain Gabapentin [Neurontin] 400 mg PO TID Melatonin 10 mg PO HS PRN PRN Reason: Insomnia HYDROcodone/APAP 7.5-325MG [[place] 7.5-325] 1 tab PO Q4H glipiZIDE [Glucotrol] 2.5 mg PO DAILY Discharge Medication List Levothyroxine Sodium [Synthroid] 150 mcg PO SUTUTHSA 10/02/13 [History] Levothyroxine Sodium [Synthroid] 175 mcg PO MOWEFR 10/02/13 [History] Nitroglycerin Sl Tabs [Nitrostat] 0.4 mg SL Q5M PRN 10/02/13 [History] Zinc 50 mg PO HS 02/09/20 [History] Meclizine [Antivert] 12.5 mg PO HS 10/22/20 [History] Apixaban [Eliquis] 2.5 mg PO BID #0 04/29/21 [Rx] Cyclobenzaprine [Flexeril] 10 mg PO Q12H PRN 05/05/21 [History] Famotidine [Pepcid] 20 mg PO BID@0600,2100 05/05/21 [History] Multivitamins, Thera [Multivitamin (formulary)] 1 tab PO DAILY 05/05/21 [History] Acetaminophen Tab [Tylenol] 325 mg PO Q6HR PRN 06/10/21 [History] Cholecalciferol [Vitamin D3 (25 Mcg = 1000 Iu)] 25 mcg PO DAILY 06/10/21 [History] Cranberry Fruit Concentrate [Azo Cranberry] 250 mg PO HS 06/10/21 [History] Fluticasone Propionate [Flovent Hfa 110 mcg] 1 puff INHALATION RT-BID 06/10/21 [History] Topiramate [Topamax] 25 mg PO HS 06/10/21 [History] Mag Hydrox/Al Hydrox/Simeth [Maalox] 20 ml PO QID ml 06/25/21 [Rx] DULoxetine HCL [Cymbalta] 30 mg PO BID 09/12/21 [History] Fluticasone Nasal [place] [Flonase Nasal [place]] 1 spray EA NOSTRIL BID 09/12/21 [History] Guaifenesin/Dextromethorphan [guaiFENesin DM] 5 ml PO Q4H PRN 09/12/21 [History] ondansetron HCL [Zofran Oral Soln] 4 mg PO Q6H PRN 09/12/21 [History] INSULIN ASPART (NovoLOG) [NovoLOG (formulary)] 0 unit SQ ACHS each 09/18/21 [Rx] Cholestyramine (with Sugar) [Cholestyramine Packet] 4 gm PO BID 7 Days #14 packet 09/24/21 [Rx] Gabapentin [Neurontin] 400 mg PO TID #6 cap 09/24/21 [Rx] HYDROcodone/APAP 5-325MG [[place] 5-325] 1 each PO Q6HR PRN #12 tab 09/24/21 [Rx] Melatonin 3 mg PO HS PRN tab 09/24/21 [Rx] Primidone 250 mg PO HS #3 tab 09/24/21 [Rx] Follow up Appointment(s)/Referral(s): Tiarra Joel MD [Primary Care Provider] - 1-2 days Brennan Diaz MD [STAFF PHYSICIAN] - 2 Weeks (urologist for her sever uti on admissinon) Kenyon Fine MD [STAFF PHYSICIAN] - 1 Week Ambulatory/Diagnostic Orders: Basic Metabolic Panel [LAB.AMB] Time Frame: 3 Days, Location: None Selected Magnesium [LAB.AMB] Time Frame: 3 Days, Location: None Selected Activity/Diet/Wound Care/Special Instructions: Continue with Zinc Barrier Paste and Calmoseptine to buttock and groin excoriation, cover with sacral optifoam and turn to prevent progression of stage 1 pressure injury to stage 2.. heart healthy diet activity as tolerated Recommend to continue with insulin sliding scale 3 times a day before meals and at bedtime Discharge Disposition: TRANSFER TO SNF/ECF
[2021-09-24 16:18] LABS: Glucose,Whole Blood 253 mg/dL (70-110)
== END 2021-09-24 18:02 | DRG 871 ==
LOC: EC 22:45 → 3SCARD 09-13 07:00 → 6NMEDSUR 09-13 11:04 → 3SCARD 09-13 23:14 → OBSVTOIN 09-14 12:13 → 4SSUR 09-17 19:55
PROVIDERS: ADMIT Internal Medicine Geriatric Medicine; ATTEND Internal Medicine Geriatric Medicine
PROC: 05HD33Z Insertion of Infusion Device into Right Cephalic Vein, Percutaneous Approach (ICD-10-PCS; principal; 2021-09-23 10:55)
DX: A41.59 Other Gram-negative sepsis (principal); G92.8 Other toxic encephalopathy; A04.72 Enterocolitis due to Clostridium difficile, not specified as recurrent; N17.9 Acute kidney failure, unspecified; I20.0 Unstable angina; E87.1 Hypo-osmolality and hyponatremia; N39.0 Urinary tract infection, site not specified; J98.11 Atelectasis; L89.151 Pressure ulcer of sacral region, stage 1; D69.6 Thrombocytopenia, unspecified; E86.0 Dehydration; E11.65 Type 2 diabetes mellitus with hyperglycemia; J44.9 Chronic obstructive pulmonary disease, unspecified; E86.1 Hypovolemia; I10 Essential (primary) hypertension; S30.810A Abrasion of lower back and pelvis, initial encounter; K21.9 Gastro-esophageal reflux disease without esophagitis; E07.9 Disorder of thyroid, unspecified; M26.609 Unspecified temporomandibular joint disorder, unspecified side; H91.90 Unspecified hearing loss, unspecified ear; H40.9 Unspecified glaucoma; R25.1 Tremor, unspecified; D64.9 Anemia, unspecified; R77.8 Other specified abnormalities of plasma proteins; M19.90 Unspecified osteoarthritis, unspecified site; Z79.01 Long term (current) use of anticoagulants; Z79.51 Long term (current) use of inhaled steroids; Z79.84 Long term (current) use of oral hypoglycemic drugs; Z79.890 Hormone replacement therapy; Z79.899 Other long term (current) drug therapy; Z86.73 Personal history of transient ischemic attack (TIA), and cerebral infarction without residual deficits; Z87.442 Personal history of urinary calculi; Z87.440 Personal history of urinary (tract) infections; Z86.718 Personal history of other venous thrombosis and embolism; Z86.14 Personal history of Methicillin resistant Staphylococcus aureus infection; Z87.01 Personal history of pneumonia (recurrent); Z90.710 Acquired absence of both cervix and uterus; Z87.42 Personal history of other diseases of the female genital tract; Z87.19 Personal history of other diseases of the digestive system; Z90.49 Acquired absence of other specified parts of digestive tract; Z90.89 Acquired absence of other organs; Z87.39 Personal history of other diseases of the musculoskeletal system and connective tissue; Z87.448 Personal history of other diseases of urinary system; Z87.2 Personal history of diseases of the skin and subcutaneous tissue; Z96.643 Presence of artificial hip joint, bilateral; Z96.653 Presence of artificial knee joint, bilateral; Z98.890 Other specified postprocedural states; Z88.1 Allergy status to other antibiotic agents; Z91.040 Latex allergy status; Z88.5 Allergy status to narcotic agent; Z88.2 Allergy status to sulfonamides; Z88.8 Allergy status to other drugs, medicaments and biological substances; Z91.048 Other nonmedicinal substance allergy status; Z82.49 Family history of ischemic heart disease and other diseases of the circulatory system; Z83.49 Family history of other endocrine, nutritional and metabolic diseases; Z82.61 Family history of arthritis; Z83.2 Family history of diseases of the blood and blood-forming organs and certain disorders involving the immune mechanism
CPT/HCPCS: 36410; 36415; 71045; 74018; 74176; 76937; 80048; 80053; 81001; 83605; 83735; 83880; 84100; 84145; 84439; 84443; 84484; 85025; 85610; 85730; 87040; 87077; 87086; 87186; 87324; 93005; 93306; 94640; 94760; 96361; 96365; 96374; 99285

== ENCOUNTER → 2022-01-22 | Outpatient (CLI) | payer MEDICARE, OTHER ==
--- NOTE | 2022-01-22 13:53 | FL ---
INDICATION: Patient age:Female; 72 years old; Reason for study: R13.10 dysphagia; PHH. COMPARISON: None TECHNIQUE: Utilizing real-time video recording fluoroscopy, multiple images were obtained after admin istration of various consistencies of barium contrast. A speech pathologist was present throughout t he exam. Fluoroscopic time: 2 minutes 7 seconds. FINDINGS: Consistencies administered: puree, chopped, nectar thick, thin, and cracker barium. During the oral phase there is normal formation of food bolus with normal initiation of swallow with all consistencie s. Premature spill: With chopped, thin, nectar thick consistencies. Laryngeal penetration: Transient laryngeal penetration with cough reflex with thin and nectar thick c onsistencies. Piriform Retention:None identified Vallecular retention: With cracker consistency that clears with subsequent swallow. Nasopharyngeal reflux: None identified. Tracheal aspiration: None identified. IMPRESSION: 1. No evidence of tracheal aspiration. 2. Transient laryngeal penetration with thin and nectar thick consistencies. 3. Premature spill. Please see dedicated speech pathology report for additional information.
== END | disposition home or self-care (01) ==
LOC: RADFLMAIN 11:00
PROVIDERS: ATTEND Family Medicine
DX: R13.10 Dysphagia, unspecified (principal)
CPT/HCPCS: 74230

== ENCOUNTER 2022-06-16 14:20 | Inpatient (IN) | payer MEDICARE, OTHER ==
--- NOTE | 2022-06-16 15:01 | ED ---
General Adult HPI - General Chief complaint: Altered Mental Status Stated complaint: Altered mental status Time Seen by Provider: 06/16/22 14:23 Source: patient, RN/MD, EMS, RN notes reviewed Mode of arrival: EMS Limitations: altered mental status - History of Present Illness Initial comments: Patient is a pleasant 72-year-old female presenting to the emergency department from [facility] for change in mental status. Patient is a poor historian and offers no significant history. Patient has no specific complaints. No pain. Patient unclear if she has history of similar symptoms previously. - Related Data Home Medications Medication Instructions Recorded Confirmed Levothyroxine Sodium [Synthroid] 150 mcg PO SUTUTHSA@59910/02/13 06/16/22 Levothyroxine Sodium [Synthroid] 175 mcg PO MOWEFR@59910/02/13 06/16/22 Nitroglycerin Sl Tabs [Nitrostat] 0.4 mg SL Q5M PRN 10/02/13 06/16/22 Meclizine [Antivert] 12.5 mg PO HS@209910/22/20 06/16/22 Cyclobenzaprine [Flexeril] 10 mg PO Q12H PRN 05/05/21 06/16/22 Famotidine [Pepcid] 20 mg PO HS@209905/05/21 06/16/22 Multivitamins, Thera [Multivitamin 1 tab PO DAILY@0905/05/21 06/16/22 (formulary)] Acetaminophen Tab [Tylenol] 650 mg PO Q6HR PRN 06/10/21 06/16/22 Cholecalciferol [Vitamin D3 (25 25 mcg PO DAILY@89906/10/21 06/16/22 Mcg = 1000 Iu)] Fluticasone Propionate [Flovent 1 puff INHALATION RT-BID@00,209906/10/21 06/16/22 Hfa 110 mcg] Topiramate [Topamax] 25 mg PO HS@209906/10/21 06/16/22 DULoxetine HCL [Cymbalta] 30 mg PO DAILY@00 09/12/21 06/16/22 Fluticasone Nasal [place] [Flonase 1 spray EA NOSTRIL BID@0900,209909/12/21 06/16/22 Nasal [place]] ondansetron HCL [Zofran Oral Soln] 4 mg PO Q6H PRN 09/12/21 06/16/22 ALPRAZolam [Xanax] 0.25 mg PO BID@0900,209906/16/22 06/16/22 Apixaban [Eliquis] 2.5 mg PO BID@0900,209906/16/22 06/16/22 Calcium Carbonate [Tums] 1,000 mg PO Q6H PRN 06/16/22 06/16/22 Cranberry 450mg Tab 450 mg PO BID@0900,209906/16/22 06/16/22 DULoxetine HCL [Cymbalta] 60 mg PO HS@209906/16/22 06/16/22 Diclofenac Sodium [Voltaren 1 gm TOPICAL Q6H PRN 06/16/22 06/16/22 Arthritis Pain 1% Gel] Dicyclomine [Bentyl] 10 mg PO TID@0900,1300,209906/16/22 06/16/22 Gabapentin [Neurontin] 400 mg PO TID@0600,1400,22006/16/22 06/16/22 HYDROcodone/APAP 5-325MG [[place] 1 tab PO Q6HR PRN 06/16/22 06/16/22 5-325] L.acidoph,Paracasei, B.lactis 2 cap PO DAILY@89906/16/22 06/16/22 [Probiotic] Melatonin 10 mg PO HS PRN 06/16/22 06/16/22 Meloxicam [Mobic] 7.5 mg PO DAILY@89906/16/22 06/16/22 Methenamine Hippurate 1 gm PO TID@0900,1300,209906/16/22 06/16/22 Psyllium Husk 100% [Metamucil 6 gm PO HS@209906/16/22 06/16/22 Packet] cefUROXime axetiL [Ceftin] 500 mg PO TID@0900,1300,209906/16/22 06/16/22 rOPINIRole HCL [Requip] 0.5 mg PO BID@0900,209906/16/22 06/16/22 Allergies Allergy/AdvReac Type Severity Reaction Status Date / Time enoxaparin sodium Allergy Unknown RED LUMPS Verified 06/16/22 15:16 [From Lovenox] ON ABDOMEN AT INJECTION SITES erythromycin base Allergy Unknown Rash/Hives Verified 06/16/22 15:16 latex Allergy Unknown Itching Verified 06/16/22 15:16 adhesive Allergy Rash/Hives Verified 06/16/22 15:16 morphine Allergy Rash/Hives Verified 06/16/22 15:16 pioglitazone [From Actos] Allergy Swelling Verified 06/16/22 15:16 Sulfa (Sulfonamide Allergy Anaphylaxis Verified 06/16/22 15:16 Antibiotics) tetracycline [Tetracycline] Allergy Rash/Hives Verified 06/16/22 15:16 metformin AdvReac Diarrhea Verified 06/16/22 15:16 Review of Systems ROS Statement: Those systems with pertinent positive or pertinent negative responses have been documented in the HPI. ROS Other: All systems not noted in ROS Statement are negative. Constitutional: Denies: fever Eyes: Denies: eye pain ENT: Denies: ear pain Respiratory: Denies: cough Cardiovascular: Denies: chest pain Endocrine: Denies: fatigue Gastrointestinal: Denies: abdominal pain Genitourinary: Denies: dysuria Musculoskeletal: Denies: back pain Skin: Denies: rash Neurological: Reports: as per HPI, confusion. Denies: weakness Past Medical History Past Medical History: Asthma, COPD, Diabetes Mellitus, Deep Vein Thrombosis (DVT), Eye Disorder, GERD/Reflux, Hypertension, Osteoarthritis (OA), Pneumonia, Skin Disorder, Thyroid Disorder Additional Past Medical History / Comment(s): MRSA infection rt foot 5th digit and side of rt foot, Hx GLAUCOMA, TMJ, RENAL CALCULI, UTIs, DVT X 5 ( STATES CAUSED BY CONTROL PILLS AND HORMONES),[place], HAND TREMORS History of Any Multi-Drug Resistant Organisms: ESBL, MRSA Date of last positivie culture/infection: 01/09/22 ESBL; 06/20/21 MRSA MDRO Source:: Urine-ESBL; Foot-MRSA Past Surgical History: Back Surgery, Bladder Surgery, Breast Surgery, Heart Catheterization, Hysterectomy, Joint Replacement, Orthopedic Surgery, Tonsi llectomy Additional Past Surgical History / Comment(s): 04/17/16 arthrotomy removal olecranon spur and loose bodies R elbow. , JULIANNE TOTAL HIP, LAPAROSCOPY, BREAST BIOPSY, JULIANNE CARPAL TUNNEL, JULIANNE KNEE REPLACEMENT, JULIANNE ROTATOR CUFF REPAIR, LEFT FOOT SURG, Right foot bursa removal, Past Anesthesia/Blood Transfusion Reactions: Postoperative Nausea & Vomiting (PONV) Past Psychological History: No Psychological Hx Reported Smoking Status: Never smoker Past Alcohol Use History: Rare Past Drug Use History: None Reported - Past Family History Mother Family Medical History: Hyperlipidemia, Hypertension Additional Family Medical History / Comment(s): Mother at age 96. Father Family Medical History: Osteoarthritis (OA) Sister(s) Family Medical History: Pulmonary Embolus General Exam Limitations: altered mental status General appearance: alert, in no apparent distress Head exam: Present: atraumatic, normocephalic Eye exam: Present: normal appearance, PERRL, EOMI ENT exam: Present: mucous membranes dry Neck exam: Present: normal inspection. Absent: tenderness, meningismus Respiratory exam: Present: normal lung sounds bilaterally Cardiovascular Exam: Present: regular rate, normal rhythm GI/Abdominal exam: Present: soft. Absent: tenderness Extremities exam: Present: normal inspection. Absent: pedal edema, calf tenderness Neurological exam: Present: alert, CN II-XII intact Expanded Neurological exam: Present: protecting the airway Patient oriented to: Present: person. Absent: place, time Speech: Present: fluid speech Motor strength exam: RUE: 5, LUE: 5, RLE: 4, LLE: 4 Eye Response: (4) open spontaneously Motor Response: (6) obeys commands Verbal Response: (4) confused conversation Psychiatric exam: Present: normal affect, normal mood Skin exam: Present: normal color Course Vital Signs 06/16/22 06/16/22 06/16/22 14:28 16:00 17:00 Temperature 98.0 F Pulse Rate 61 61 90 Respiratory 18 14 20 Rate Blood Pressure 148/76 153/100 156/81 O2 Sat by Pulse 98 93 L Oximetry 06/16/22 06/16/22 19:00 19:26 Temperature Pulse Rate 63 64 Respiratory 23 16 Rate Blood Pressure 144/88 144/94 O2 Sat by Pulse 95 Oximetry EKG Findings - EKG Results: EKG: interpreted by ERMD (Left axis. T-wave inversion V1 through V5.), sinus rhythm, normal QRS EKG shows: bradycardia Medical Decision Making - Medical Decision Making Was pt. sent in by a medical professional or institution (, PA, ECONOMIC DEVELOPMENT MANAGER, urgent care, hospital, or [facility]...) When possible be specific @ -Patient was sent from nursing facility Did you speak to anyone other than the patient for history (EMS, parent, family, police, friend...)? What history was obtained from this source @ -No Did you review nursing and triage notes (agree or disagree)? Why? @ -I reviewed and agree with nursing and triage notes Were old charts reviewed (outside hosp., previous admission, EMS record, old EKG, old radiological studies, urgent care reports/EKG's, [facility] records)? Report findings @ -Transfer charts reviewed Differential Diagnosis (chest pain, altered mental status, abdominal pain women, abdominal pain men, vaginal bleeding, weakness, fever, dyspnea, syncope, headache, dizziness, GI bleed, back pain, seizure, CVA, palpatations, mental health)? @ -Differential Altered Mental Status: Hypoglycemia, DKA, hypercapnia, ETOH, overdose, CO poisoning, trauma, myxedema coma, HTN encephalopathy, infection, encephalitis, psychosis, intercranial hemorrhage, hepatic encephalopathy, meningitis, CVA, this is not meant to be an all-inclusive list EKG interpreted by me (3pts min.). @ -As above X-rays interpreted by me (1pt min.). @ -Chest x-ray reveals no acute process. The right midlung atelecta sis/scarring CT interpreted by me (1pt min.). @ -Computed tomography scan of the brain does not show obvious large hemorrhage or mass. U/S interpreted by me (1pt. min.). @ -None done What testing was considered but not performed or refused? (CT, X-rays, U/S, labs)? Why? @ -None What meds were considered but not given or refused? Why? @ -None Did you discuss the management of the patient with other professionals (professionals i.e. , PA, ECONOMIC DEVELOPMENT MANAGER, lab, RT, psych nurse, social sciences chair, room service associate, teacher, veterans service officer, director of casework services)? Give summary @ -Case was discussed with practitioner heidy kang Who will admit covered with Dr. Bowman, covering for Dr. Joel Was smoking cessation discussed for >3mins.? @ -No Was critical care preformed (if so, how long)? @ -No Were there social determinants of health that impacted care today? How? (Homelessness, low income, unemployed, alcoholism, drug addiction, transportation, low edu. Level, literacy, decrease access to med. care, long term, rehab)? @ -No Was there de-escalation of care discussed even if they declined (Discuss DNR or withdrawal of care, Hospice)? DNR status @ -No What co-morbidities impacted this encounter? (DM, HTN, Smoking, COPD, CAD, Cancer, CVA, ARF, Chemo, Hep., AIDS, mental health diagnosis, sleep apnea, morbid obesity)? @ -None Was patient admitted / discharged? Hospital course, mention meds given and route, prescriptions, significant lab abnormalities, going to OR and other pertinent info. @ -Patient reevaluated and updated. Patient will be admitted with IV antibiotics for UTI and altered mental status Undiagnosed new problem with uncertain prognosis? @ -No Drug Therapy requiring intensive monitoring for toxicity (Heparin, Nitro, Insulin, Cardizem)? @ -No Were any procedures done? @ -No Diagnosis/symptom? @ -UTI, altered mental status Acute, or Chronic, or Acute on Chronic? @ -Acute Uncomplicated (without systemic symptoms) or Complicated (systemic symptoms)? @ -default Side effects of treatment? @ -No Exacerbation, Progression, or Severe Exacerbation? @ -No Poses a threat to life or bodily function? How? (Chest pain, [place], [place], pneumonia, PE, COPD, DKA, ARF, appy, cholecystitis, CVA, Diverticulitis, Homicidal, Suicidal, threat to staff... and all critical care pts) @ -No - Lab Data Result diagrams: 06/16/22 15:23 06/16/22 15:23 Lab Results 06/16/22 06/16/22 06/16/22 Range/Units 15:23 15:23 15:23 WBC 7.1 (3.8-10.6) k/uL RBC 4.10 (3.80-5.40) m/uL Hgb 12.8 (11.4-16.0) gm/dL Hct 38.6 (34.0-46.0) % MCV 94.1 (80.0-100.0) fL MCH 31.2 (25.0-35.0) pg MCHC 33.1 (31.0-37.0) g/dL RDW 12.8 (11.5-15.5) % Plt Count 178 (150-450) k/uL MPV 6.7 Neutrophils % 70 % Lymphocytes % 21 % Monocytes % 5 % Eosinophils % 1 % Basophils % 1 % Neutrophils # 5.0 (1.3-7.7) k/uL Lymphocytes # 1.5 (1.0-4.8) k/uL Monocytes # 0.3 (0-1.0) k/uL Eosinophils # 0.1 (0-0.7) k/uL Basophils # 0.0 (0-0.2) k/uL PT 10.1 (9.0-12.0) sec INR 0.9 (<1.2) APTT 24.6 (22.0-30.0) sec Sodium (137-145) mmol/L Potassium (3.5-5.1) mmol/L Chloride (98-107) mmol/L Carbon Dioxide (22-30) mmol/L Anion Gap mmol/L BUN (7-17) mg/dL Creatinine (0.52-1.04) mg/dL Est GFR (CKD-EPI)AfAm (>60 ml/min/1.73 sqM) Est GFR (CKD-EPI)NonAf (>60 ml/min/1.73 sqM) Glucose (74-99) mg/dL Calcium (8.4-10.2) mg/dL Total Bilirubin (0.2-1.3) mg/dL AST (14-36) U/L ALT (4-34) U/L Alkaline Phosphatase (38-126) U/L Troponin I (0.000-0.034) ng/mL Total Protein (6.3-8.2) g/dL Albumin (3.5-5.0) g/dL Urine Color Yellow Urine Appearance Cloudy H (Clear) Urine pH 6.5 (5.0-8.0) Ur Specific [place] 1.015 (1.001-1.035) Urine Protein Negative (Negative) Urine Glucose (UA) Negative (Negative) Urine Ketones Negative (Negative) Urine Blood Small H (Negative) Urine Nitrite Positive H (Negative) Urine Bilirubin Negative (Negative) Urine Urobilinogen <2.0 (<2.0) mg/dL Ur Leukocyte Esterase Large H (Negative) Urine RBC 10 H (0-5) /hpf Urine WBC 154 H (0-5) /hpf Ur Squamous Epith Cells 1 (0-4) /hpf Urine Bacteria Many H (None) /hpf 06/16/22 06/16/22 Range/Units 15:23 15:23 WBC (3.8-10.6) k/uL RBC (3.80-5.40) m/uL Hgb (11.4-16.0) gm/dL Hct (34.0-46.0) % MCV (80.0-100.0) fL MCH (25.0-35.0) pg MCHC (31.0-37.0) g/dL RDW (11.5-15.5) % Plt Count (150-450) k/uL MPV Neutrophils % % Lymphocytes % % Monocytes % % Eosinophils % % Basophils % % Neutrophils # (1.3-7.7) k/uL Lymphocytes # (1.0-4.8) k/uL Monocytes # (0-1.0) k/uL Eosinophils # (0-0.7) k/uL Basophils # (0-0.2) k/uL PT (9.0-12.0) sec INR (<1.2) APTT (22.0-30.0) sec Sodium 135 L (137-145) mmol/L Potassium 4.0 (3.5-5.1) mmol/L Chloride 100 (98-107) mmol/L Carbon Dioxide 30 (22-30) mmol/L Anion Gap 5 mmol/L BUN 21 H (7-17) mg/dL Creatinine 0.71 (0.52-1.04) mg/dL Est GFR (CKD-EPI)AfAm >90 (>60 ml/min/1.73 sqM) Est GFR (CKD-EPI)NonAf 85 (>60 ml/min/1.73 sqM) Glucose 189 H (74-99) mg/dL Calcium 8.8 (8.4-10.2) mg/dL Total Bilirubin 0.4 (0.2-1.3) mg/dL AST 26 (14-36) U/L ALT 24 (4-34) U/L Alkaline Phosphatase 91 (38-126) U/L Troponin I <0.012 (0.000-0.034) ng/mL Total Protein 6.3 (6.3-8.2) g/dL Albumin 3.6 (3.5-5.0) g/dL Urine Color Urine Appearance (Clear) Urine pH (5.0-8.0) Ur Specific [place] (1.001-1.035) Urine Protein (Negative) Urine Glucose (UA) (Negative) Urine Ketones (Negative) Urine Blood (Negative) Urine Nitrite (Negative) Urine Bilirubin (Negative) Urine Urobilinogen (<2.0) mg/dL Ur Leukocyte Esterase (Negative) Urine RBC (0-5) /hpf Urine WBC (0-5) /hpf Ur Squamous Epith Cells (0-4) /hpf Urine Bacteria (None) /hpf Disposition Clinical Impression: UTI (urinary tract infection), Altered mental status Disposition: ADMITTED IP TO THIS HOSP Is patient prescribed a controlled substance at d/c from ED?: No Referrals: Tiarra Joel MD [Primary Care Provider] - 1-2 days Time of Disposition: 19:42
--- NOTE | 2022-06-16 15:32 | XR ---
EXAMINATION TYPE: XR chest 2V DATE OF EXAM: 06/16/2022 3:20 PM COMPARISON: Chest radiographs from 09/21/2021 TECHNIQUE: XR chest 2V Frontal and lateral views of the chest. CLINICAL INDICATION:Female, 72 years old with history of altered mental status; FINDINGS: Lungs/Pleura: Low lung volumes are present. There is no evidence of pleural effusion, focal consolida tion, or pneumothorax. Linear scar and/or atelectasis within the right midlung. Elevation of the rig ht hemidiaphragm redemonstrated. Pulmonary vascularity: Unremarkable. Heart/mediastinum: Cardiomediastinal silhouette is unremarkable. Musculoskeletal: No acute osseous pathology. Orthopedic anchors within the right humeral head. IMPRESSION: Low lung volumes without evidence for acute process.
--- NOTE | 2022-06-16 15:44 | CT ---
EXAMINATION TYPE: CT brain wo con CT DLP: 1159.4 mGycm, Automated exposure control for dose reduction was used. DATE OF EXAM: 06/16/2022 3:33 PM COMPARISON: Prior CT Brain from 05/05/2021 and 05/05/2021 MRI. CLINICAL INDICATION:Female, 72 years old with history of Altered mental status, AMS TECHNIQUE: Brain: Axial CT images of the brain were obtained with coronal and sagittal reformats created and rev iewed. Contrast used: None. Oral contrast used: None. FINDINGS: Brain: Extra-axial spaces: No abnormal extra-axial fluid collections. Ventricular system: Within normal limits Cerebral parenchyma: No acute intraparenchymal hemorrhage or mass effect. The rehman-white junction is well differentiated. Cerebellum: Unremarkable. Mass effect: No evidence of midline shift. Intracranial vasculature: Atherosclerotic calcifications of the intracranial vessels. Soft tissues: Normal. Calvarium/osseous structures: No depressed skull fracture. Paranasal sinuses and mastoid air cells: Mild scattered paranasal sinus disease. Visualized orbits: Bilateral aphakia IMPRESSION: No acute intracranial process.
[2022-06-16 16:28] LABS: Basophils % (A) 1 %; Eosinophils # (A) 0.1 k/uL (0-0.7); Eosinophils % (A) 1 %; HCT 38.6 % (34.0-46.0); HGB 12.8 gm/dL (11.4-16.0); Lymphocytes # (A) 1.5 k/uL (1.0-4.8); Lymphocytes % (A) 21 %; MCH 31.2 pg (25.0-35.0); MCHC 33.1 g/dL (31.0-37.0); MCV 94.1 fL (80.0-100.0); Mean Platelet Volume 6.7; Monocytes # (A) 0.3 k/uL (0-1.0); Monocytes % (A) 5 %; Neutrophils % (A) 70 %; Platelet Count 178 k/uL (150-450); RDW 12.8 % (11.5-15.5); WBC 7.1 k/uL (3.8-10.6)
[2022-06-16 16:38] LABS: INR 0.9 (<1.2); Partial Thromboplastin Time 24.6 sec (22.0-30.0); Prothrombin Time 10.1 sec (9.0-12.0)
[2022-06-16 16:54] LABS: ALT 24 U/L (4-34); AST 26 U/L (14-36); African American GFR (CKD) >90 (>60 ml/min/1.73 sqM); Albumin 3.6 g/dL (3.5-5.0); Alkaline Phosphatase 91 U/L (38-126); Anion Gap 5 mmol/L; Blood Urea Nitrogen 21 mg/dL (7-17); Calcium 8.8 mg/dL (8.4-10.2); Carbon Dioxide 30 mmol/L (22-30); Chloride 100 mmol/L (98-107); Glucose 189 mg/dL (74-99); Non-African American GFR(CKD) 85 (>60 ml/min/1.73 sqM); Sodium 135 mmol/L (137-145); Total Bilirubin 0.4 mg/dL (0.2-1.3); Total Protein 6.3 g/dL (6.3-8.2)
[2022-06-16 19:04] LABS: Appearance,Urine Cloudy (Clear); Bacteria,Urine Many /hpf; Bilirubin,Urine Negative (Negative); Blood,Urine Small (Negative); Color,Urine Yellow; Glucose,Urine (UA) Negative (Negative); Ketones,Urine Negative (Negative); Leukocyte Esterase,Urine Large (Negative); Nitrite,Urine Positive (Negative); PH, Urine 6.5 (5.0-8.0); Protein,Urine Negative (Negative); RBC,Urine 10 /hpf (0-5); Specific Gravity,Urine 1.015 (1.001-1.035); Squamous Epithelial Cell,Urine 1 /hpf (0-4); Urobilinogen,Urine <2.0 mg/dL (<2.0); WBC,Urine 154 /hpf (0-5)
[2022-06-16] MEDS ORDERED: NALOXONE 0.4 MG/ML 1 ML VIAL IV PRN (19:42)
[2022-06-16] MEDS ORDERED: ACETAMINOPHEN TAB 325 MG TAB PO PRN (19:42)
[2022-06-16] MEDS: SODIUM CHLORIDE 0.9% 1,000 ML IV SCH (20:02)
[2022-06-17 00:47] LABS: Glucose,Whole Blood 225 mg/dL (70-110)
[2022-06-17 05:52] LABS: Glucose,Whole Blood 234 mg/dL (70-110)
[2022-06-17] MEDS ORDERED: DEXTROSE 50% SYRINGE 50 ML IVP PRN ×2 (06:40)
[2022-06-17] MEDS: INSULIN ASPART (NovoLOG) 100 UNIT/ML VIAL SQ SCH ×4 (06:55→20:21)
[2022-06-17] MEDS: SODIUM CHLORIDE 0.9% 1,000 ML IV SCH (08:13)
[2022-06-17 09:56] LABS: Basophils % (A) 0 %; Eosinophils # (A) 0.1 k/uL (0-0.7); Eosinophils % (A) 2 %; HCT 43.6 % (34.0-46.0); HGB 15.1 gm/dL (11.4-16.0); Lymphocytes # (A) 1.4 k/uL (1.0-4.8); Lymphocytes % (A) 18 %; MCH 32.2 pg (25.0-35.0); MCHC 34.7 g/dL (31.0-37.0); MCV 92.8 fL (80.0-100.0); Mean Platelet Volume 7.4; Monocytes # (A) 0.4 k/uL (0-1.0); Monocytes % (A) 5 %; Neutrophils # (A) 5.7 k/uL (1.3-7.7); Neutrophils % (A) 73 %; Platelet Count 152 k/uL (150-450); RDW 13.2 % (11.5-15.5); WBC 7.8 k/uL (3.8-10.6)
[2022-06-17] MEDS ORDERED: HYDROcodone/APAP 5-325MG 1 EACH TAB PO PRN (09:56)
[2022-06-17] MEDS ORDERED: DICYCLOMINE 10 MG CAP PO PRN (09:56)
[2022-06-17] MEDS ORDERED: MELATONIN 5 MG TABLET PO PRN (09:56)
[2022-06-17] MEDS ORDERED: ACETAMINOPHEN TAB 325 MG TAB PO PRN (09:56)
[2022-06-17] MEDS ORDERED: CALCIUM CARBONATE 500 MG CHEWABLE PO PRN (09:56)
[2022-06-17 09:57] LABS: ALT 29 U/L (4-34); AST 27 U/L (14-36); African American GFR (CKD) >90 (>60 ml/min/1.73 sqM); Albumin 4.2 g/dL (3.5-5.0); Albumin/Globulin Ratio 1.4; Alkaline Phosphatase 107 U/L (38-126); Anion Gap 7 mmol/L; Blood Urea Nitrogen 15 mg/dL (7-17); Calcium 9.3 mg/dL (8.4-10.2); Carbon Dioxide 29 mmol/L (22-30); Chloride 103 mmol/L (98-107); Globulin 2.9 g/dL; Glucose 175 mg/dL (74-99); Non-African American GFR(CKD) >90 (>60 ml/min/1.73 sqM); Potassium 4.1 mmol/L (3.5-5.1); Sodium 139 mmol/L (137-145); Total Bilirubin 0.6 mg/dL (0.2-1.3); Total Protein 7.1 g/dL (6.3-8.2)
[2022-06-17 11:30] LABS: Glucose,Whole Blood 144 mg/dL (70-110)
[2022-06-17] MEDS: NON FORMULARY DRUG (Methenamine Hippurate [Methenamine Hippurate] 1 GM Tablet) PO SCH ×2 (12:39→20:31)
[2022-06-17] MEDS: ERTAPENEM 1 GM in SODIUM CHLORIDE 0.9% 50 ML IVPB SCH (12:46)
--- NOTE | 2022-06-17 13:20 | P.CONS ---
History of Present Illness - Reason for Consult Consult date: 06/17/22 UTI, history of ESBL Requesting physician: Hodan Dominguez - Chief Complaint Mental status changes x 1 day - History of Present Illness Patient is a 72-year-old female with a past medical history negative for diabetes mellitus COPD asthma DVT hypertension, OA, a correction resident the patient was sent to the ER for evaluation of mental status changes apparent symptom has been going on for about a day before the patient was brought into the hospital, patient on arrival to the eye was afebrile and no fever had gotten subsequently, patient did have a normal white count. Was mildly elevated however her creatinine was normal liver enzymes are normal patient did have a positive UA with large leukocyte esterase more than 154 WBC, patient last urine culture in the micro-section done on 06/14/2022 was finalized with ESBL E. coli patient was started on Invanz infection it was consulted for further management of antibiotic therapy. At the time of my evaluation the patient is afebrile the patient is pleasantly confused and was unable to provide any reliable history however the patient is breathing comfortably on room air when specifically denies any chest pain shortness with a cough is been complaining of some urinary burning and suprapubic pain and nausea but no vomiting and no diarrhea Review of Systems Positive point has been mentioned in the HPI rest of the systems are negative Past Medical History Past Medical History: Asthma, COPD, Diabetes Mellitus, Deep Vein Thrombosis (DVT), Eye Disorder, GERD/Reflux, Hypertension, Osteoarthritis (OA), Pneumonia, Skin Disorder, Thyroid Disorder Additional Past Medical History / Comment(s): MRSA infection rt foot 5th digit and side of rt foot, Hx GLAUCOMA, TMJ, RENAL CALCULI, UTIs, DVT X 5 ( STATES CA USED BY CONTROL PILLS AND HORMONES),[place], HAND TREMORS History of Any Multi-Drug Resistant Organisms: ESBL, MRSA Year Discovered:: 01/09/22 ESBL; 06/20/21 MRSA MDRO Source:: Urine-ESBL; Foot-MRSA Past Surgical History: Back Surgery, Bladder Surgery, Breast Surgery, Heart Catheterization, Hysterectomy, Joint Replacement, Orthopedic Surgery, Tonsillectomy Additional Past Surgical History / Comment(s): 04/17/16 arthrotomy removal olecranon spur and loose bodies R elbow. , JULIANNE TOTAL HIP, LAPAROSCOPY, BREAST BIOPSY, JULIANNE CARPAL TUNNEL, JULIANNE KNEE REPLACEMENT, JULIANNE ROTATOR CUFF REPAIR, LEFT FOOT SURG, Right foot bursa removal, Past Anesthesia/Blood Transfusion Reactions: Postoperative Nausea & Vomiting (PONV) Past Psychological History: No Psychological Hx Reported Additional Psychological History / Comment(s): Pt currently at [facility] for rehab. Smoking Status: Unknown if ever smoked Past Alcohol Use History: Rare Past Drug Use History: None Reported - Past Family History Mother Family Medical History: Hyperlipidemia, Hypertension Additional Family Medical History / Comment(s): Mother at age 96. Father Family Medical History: Osteoarthritis (OA) Sister(s) Family Medical History: Pulmonary Embolus Medications and Allergies Home Medications Medication Instructions Recorded Confirmed Type Levothyroxine Sodium [Synthroid] 150 mcg PO SUTUTHSA@59910/02/13 06/16/22 History Levothyroxine Sodium [Synthroid] 175 mcg PO MOWEFR@59910/02/13 06/16/22 History Nitroglycerin Sl Tabs [Nitrostat] 0.4 mg SL Q5M PRN 10/02/13 06/16/22 History Meclizine [Antivert] 12.5 mg PO HS@209910/22/20 06/16/22 History Cyclobenzaprine [Flexeril] 10 mg PO Q12H PRN 05/05/21 06/16/22 History Famotidine [Pepcid] 20 mg PO HS@209905/05/21 06/16/22 History Multivitamins, Thera [Multivitamin 1 tab PO DAILY@89905/05/21 06/16/22 History (formulary)] Acetaminophen Tab [Tylenol] 650 mg PO Q6HR PRN 06/10/21 06/16/22 History Cholecalciferol [Vitamin D3 (25 25 mcg PO DAILY@89906/10/21 06/16/22 History Mcg = 1000 Iu)] Fluticasone Propionate [Flovent 1 puff INHALATION RT-BID@899,209906/10/21 06/16/22 History Hfa 110 mcg] Topiramate [Topamax] 25 mg PO HS@209906/10/21 06/16/22 History DULoxetine HCL [Cymbalta] 30 mg PO DAILY@89909/12/21 06/16/22 History Fluticasone Nasal [place] [Flonase 1 spray EA NOSTRIL BID@0900,209909/12/21 06/16/22 History Nasal [place]] ondansetron HCL [Zofran Oral Soln] 4 mg PO Q6H PRN 09/12/21 06/16/22 History Apixaban [Eliquis] 2.5 mg PO BID@0900,209906/16/22 06/16/22 History Calcium Carbonate [Tums] 1,000 mg PO Q6H PRN 06/16/22 06/16/22 History Cranberry 450mg Tab 450 mg PO BID@0900,209906/16/22 06/16/22 History DULoxetine HCL [Cymbalta] 60 mg PO HS@209906/16/22 06/16/22 History Diclofenac Sodium [Voltaren 1 gm TOPICAL Q6H PRN 06/16/22 06/16/22 History Arthritis Pain 1% Gel] Dicyclomine [Bentyl] 10 mg PO TID@0900,1300,209906/16/22 06/16/22 History L.acidoph,Paracasei, B.lactis 2 cap PO DAILY@0900 06/16/22 06/16/22 History [Probiotic] Melatonin 10 mg PO HS PRN 06/16/22 06/16/22 History Methenamine Hippurate 1 gm PO TID@0900,1300,209906/16/22 06/16/22 History Psyllium Husk 100% [Metamucil 6 gm PO HS@209906/16/22 06/16/22 History Packet] rOPINIRole HCL [Requip] 0.5 mg PO BID@0900,209906/16/22 06/16/22 History ALPRAZolam [Xanax] 0.25 mg PO BID@0900,2099 PRN #4 tab 06/19/22 Rx Ertapenem [INVanz] 1 gm IVPB DAILY@1200 7 Days #7 each 06/19/22 Rx HYDROcodone/APAP 5-325MG [[place] 1 tab PO Q8H PRN #4 tab 06/19/22 Rx 5-325] INSULIN ASPART (NovoLOG) [NovoLOG 0 unit SQ ACHS each 06/19/22 Rx (formulary)] INSULIN ASPART (NovoLOG) [NovoLOG 3 unit SQ AC-TID each 06/19/22 Rx (formulary)] Linagliptin [Tradjenta] 5 mg PO DAILY tab 06/19/22 Rx Losartan [Cozaar] 25 mg PO DAILY tab 06/19/22 Rx Nystatin 100,000 Unit/gm Powd 1 applic TOPICAL BID each 06/19/22 Rx [Mycostatin Powder] Pantoprazole [Protonix] 40 mg PO AC-BRKFST tab 06/19/22 Rx Allergies Allergy/AdvReac Type Severity Reaction Status Date / Time enoxaparin sodium Allergy Unknown RED LUMPS Verified 06/16/22 15:16 [From Lovenox] ON ABDOMEN AT INJECTION SITES erythromycin base Allergy Unknown Rash/Hives Verified 06/16/22 15:16 latex Allergy Unknown Itching Verified 06/16/22 15:16 adhesive Allergy Rash/Hives Verified 06/16/22 15:16 morphine Allergy Rash/Hives Verified 06/16/22 15:16 pioglitazone [From Actos] Allergy Swelling Verified 06/16/22 15:16 Sulfa (Sulfonamide Allergy Anaphylaxis Verified 06/16/22 15:16 Antibiotics) tetracycline [Tetracycline] Allergy Rash/Hives Verified 06/16/22 15:16 metformin AdvReac Diarrhea Verified 06/16/22 15:16 Physical Exam Vitals: Vital Signs Temp Pulse Pulse Resp BP BP Pulse Ox 06/17/22 08:51 99 06/17/22 07:18 97.1 F L 58 L 17 140/71 99 06/17/22 02:00 98.0 F 58 L 17 164/77 97 06/16/22 21:30 98.0 F 53 L 17 169/75 98 06/16/22 19:26 64 16 144/94 95 06/16/22 19:00 63 23 144/88 06/16/22 17:00 90 20 156/81 06/16/22 16:00 61 14 153/100 93 L 06/16/22 14:28 98.0 F 61 18 148/76 98 Intake and Output 06/16/22 06/17/22 06/17/22 22:59 06:59 14:59 Output Total 950 400 Balance -950 -400 Output: Urine 950 400 Straight 400 Other: Voiding Method Indwelling Catheter # Bowel Movements 1 Weight 101.877 kg GENERAL DESCRIPTION: An elderly female lying in bed, no distress. No tachypnea or accessory muscle of respiration use. HEENT: Shows Pallor , no scleral icterus. Oral mucous membrane is dry. No pharyngeal erythema or thrush NECK: Trachea central, no thyromegaly. LUNGS: Unlabored breathing. Clear to auscultation anteriorly. No wheeze or crack le. HEART: S1, S2, regular rate and rhythm. No loud murmur ABDOMEN: Soft, no tenderness , guarding or rigidity, no organomegaly EXTREMITIES: No edema of feet. SKIN: No rash, no masses palpable. NEUROLOGICAL: The patient is awake, alert, oriented x3, mood and affect normal. Results CBC & Chem 7: 06/17/22 08:48 06/19/22 06:24 Labs: Abnormal Lab Results - Last 24 Hours (Table) 06/16/22 06/16/22 06/17/22 Range/Units 15: 15: 00:45 Sodium 135 L (137-145) mmol/L BUN 21 H (7-17) mg/dL Glucose 189 H (74-99) mg/dL POC Glucose (mg/dL) 225 H (70-110) mg/dL Urine Appearance Cloudy H (Clear) Urine Blood Small H (Negative) Urine Nitrite Positive H (Negative) Ur Leukocyte Esterase Large H (Negative) Urine RBC 10 H (0-5) /hpf Urine WBC 154 H (0-5) /hpf Urine Bacteria Many H (None) /hpf 06/17/22 06/17/22 Range/Units 05:51 08:48 Sodium (137-145) mmol/L BUN (7-17) mg/dL Glucose 175 H (74-99) mg/dL POC Glucose (mg/dL) 234 H (70-110) mg/dL Urine Appearance (Clear) Urine Blood (Negative) Urine Nitrite (Negative) Ur Leukocyte Esterase (Negative) Urine RBC (0-5) /hpf Urine WBC (0-5) /hpf Urine Bacteria (None) /hpf Microbiology - Last 24 Hours (Table) 06/16/22 15: Urine Culture - Preliminary Urine,Voided Assessment and Plan (1) UTI (urinary tract infection) Current Visit: Yes Status: Acute Code(s): N39.0 - URINARY TRACT INFECTION, SITE NOT SPECIFIED SNOMED Code(s): 06245989 Plan: 1patient is in the hospital mental status changes likely multifactorial in this patient apparently did have history of recurrent UTI did have a positive UA with a recent urine culture on 06/14/2022 was positive for ESBL E. coli it is not clearly the patient has received an antibiotic for that pathogen in the outpatient setting at the correction 2-patient to continue Invanz 1 g daily 3-check ultrasound of the kidneys to make sure no evidence of any obstructive uropathy 4-gentle IV fluid We will follow on clinical condition and cultures to further adjust medication if needed Thank you for this consultation will follow this patient with you Time with Patient: Greater than 30
[2022-06-17] MEDS ORDERED: GABAPENTIN 400 MG CAP PO SCH (14:00)
--- NOTE | 2022-06-17 16:22 | US ---
EXAMINATION TYPE: US kidneys/renal and bladder DATE OF EXAM: 06/17/2022 COMPARISON: CT abdomen and pelvis September 14, 2021 CLINICAL HISTORY: uti and bacteremia. Poor historian, large habitus, falling asleep and would not rol l or take in a breath to help with imaging EXAM MEASUREMENTS: Right Kidney: 9.0 x 4.2 x 4.6 cm Left Kidney: not seen Right Kidney: very limited views due to reasons stated above Left Kidney: not seen due to overlying bowel gas and patients inability to roll Bladder: wnl Suboptimal study due to patient noncooperation and large body habitus. Right kidney measures lower li mits of normal in size. No hydronephrosis. No concerning masses on images saved. Bladder poorly diste nded and thus suboptimally evaluated. Left kidney not distinctly seen. Impression: Suboptimal study without right-sided hydronephrosis.
[2022-06-17 16:26] LABS: Glucose,Whole Blood 200 mg/dL (70-110)
--- NOTE | 2022-06-17 17:55 | P.HPIM ---
History of Present Illness H&P Date: 06/17/22 This is a 72 year old female who follows with Dr. Joel in the office, patient has medical history of asthma/COPD, diabetes, DVT, hypertension, thyroid disorder, heart cath and frequent UTI's. Patient is brought to the hospital from [facility] for altered mental status. Patient was recently hospitalized and treated for E. Coli ESBL urinary tract infection. Patient has been at [facility] for rehab. She is alert x 0-1 on admission, unable to state date of or location. Patient does admit to abdominal cramping and discomfort as well as general malaise and overall not feeling well. Patient reports having fever also. Denies nausea, vomiting or diarrhea. Denies shortness of breath, denies chest pain. Most of the history is taken from the chart which previous admission patient was alert and oriented x 2 to 3. Initial work up reveals no white count, sodium level of 135, BUN 21, creatinine 0.71, blood glucose of 189 and hemoglobin A1C of 8.8. Troponin is negative. Chest xray and brain CT are unremarkable. Patient is found to have nitrate positive urine with large amount of leukocyte esterase. Patient did have a urinalysis and culture done outpatient on 06/14/2022 and patient has been on oral ceftin for this. Culture has been finalized and patient is found to have ESBL E. Coli UTI. Patient is admitted to the hospital for altered mental status and UTI and has been started on IV ceftriaxone. Infectious disease has been consulted for further management of antibiotics. Patient has been incontinent of urine, however bladder scan reveals greater than 400 mls in the urinary bladder and strait catheterization was done. Renal ultrasound has been ordered by ID to rule out obstructive uropathy. Patient continues with acute confusion likely from infection and polypharmacy for which norco, laura apentin, and muscle relaxers will be held. REVIEW OF SYSTEMS: CONSTITUTIONAL: Reports fever and malaise. HEENT: No recent visual problems or hearing problems. Denied any sore throat. CARDIOVASCULAR: No chest pain, orthopnea, PND, no palpitations, no syncope. PULMONARY: No shortness of breath, no cough, no hemoptysis. GASTROINTESTINAL: No diarrhea, no nausea, no vomiting. Reports crampy abdominal pain and discomfort. NEUROLOGICAL: No headaches, no weakness, no numbness. HEMATOLOGICAL: Denies any bleeding or petechiae. GENITOURINARY: Denies any burning micturition, frequency, or urgency. MUSCULOSKELETAL/RHEUMATOLOGICAL: Denies any joint pain, swelling, or any muscle pain. ENDOCRINE: Denies any polyuria or polydipsia. The rest of the 14-point review of systems is negative. PHYSICAL EXAMINATION: GENERAL: The patient is alert and oriented x0-1, not in any acute distress. Well developed, well nourished. HEENT: Pupils are round and equally reacting to light. EOMI. No scleral icterus. No conjunctival pallor. Normocephalic, atraumatic. No pharyngeal erythema. No thyromegaly. CARDIOVASCULAR: S1 and S2 present. No murmurs, rubs, or gallops. PULMONARY: Chest is clear to auscultation, no wheezing or crackles. ABDOMEN: Soft, There is suprapubic distention and tenderness on exam, normoactive bowel sounds. No palpable organomegaly. MUSCULOSKELETAL: No joint swelling or deformity. EXTREMITIES: No cyanosis, clubbing, or pedal edema. NEUROLOGICAL: Gross neurological examination did not reveal any focal deficits. Diffuse weakness and is noted to have tremors of the mouth. Patient is confused. SKIN: No rashes. Assessment and Plan Assessment Altered mental status likely from acute toxic and metabolic encephalopathy from recurrent uti and polypharmacy Acute urinary tract infection with sepsis present on admission with outpatient culture showing E. Coli ESBL UTI Urinary retention requiring strait catherization and monitoring History of Asthma/COPD with no acute exacerbation Diabetes Mellitus type 2 uncontrolled with A1C of 8.8 Hypertension History of DVT anticoaugulated with eliquis History of UTI with MDRO History of C.Dif Colitis Thyroid disorder Gastroesophageal reflux disease GI prophylaxis DVT prophylaxis Resumed on eliquis Full Code Plan Antibiotics changed to Ertapenem and infectious disease following Hold norco, gabapentin, flexeril and xanax Repeat urinalysis and culture pending Resume appropriate home medications Continue normal saline PT/OT consultation Continue all other supportive care The impression and plan of care has been dictated by Hodan Dominguez Nurse Practitioner as directed. Dr. Ramana MD I have performed a history and physical examination and medical decision making of this patient, discussed the same with the dictator, and agree with the dictators assessment and plan as written, documented as a scribe. Based on total visit time, I have performed more than 50% of this visit. Past Medical History Past Medical History: Asthma, COPD, Diabetes Mellitus, Deep Vein Thrombosis (DVT), Eye Disorder, GERD/Reflux, Hypertension, Osteoarthritis (OA), Pneumonia, Skin Disorder, Thyroid Disorder Additional Past Medical History / Comment(s): MRSA infection rt foot 5th digit and side of rt foot, Hx GLAUCOMA, TMJ, RENAL CALCULI, UTIs, DVT X 5 ( STATES CAUSED BY CONTROL PILLS AND HORMONES),[place], HAND TREMORS History of Any Multi-Drug Resistant Organisms: ESBL, MRSA Date of last positivie culture/infection: 01/09/22 ESBL; 06/20/21 MRSA MDRO Source:: Urine-ESBL; Foot-MRSA Past Surgical History: Back Surgery, Bladder Surgery, Breast Surgery, Heart Catheterization, Hysterectomy, Joint Replacement, Orthopedic Surgery, Tonsillectomy Additional Past Surgical History / Comment(s): 04/17/16 arthrotomy removal olecranon spur and loose bodies R elbow. , JULIANNE TOTAL HIP, LAPAROSCOPY, BREAST BIOPSY, JULIANNE CARPAL TUNNEL, JULIANNE KNEE REPLACEMENT, JULIANNE ROTATOR CUFF REPAIR, LEFT FOOT SURG, Right foot bursa removal, Past Anesthesia/Blood Transfusion Reactions: Postoperative Nausea & Vomiting (PONV) Past Psychological History: No Psychological Hx Reported Additional Psychological History / Comment(s): Pt currently at [facility] for rehab. Smoking Status: Unknown if ever smoked Past Alcohol Use History: Rare Past Drug Use History: None Reported - Past Family History Mother Family Medical History: Hyperlipidemia, Hypertension Additional Family Medical History / Comment(s): Mother at age 96. Father Family Medical History: Osteoarthritis (OA) Sister(s) Family Medical History: Pulmonary Embolus Medications and Allergies Home Medications Medication Instructions Recorded Confirmed Type Levothyroxine Sodium [Synthroid] 150 mcg PO SUTUTHSA@0600 10/02/13 06/16/22 History Levothyroxine Sodium [Synthroid] 175 mcg PO MOWEFR@0600 10/02/13 06/16/22 History Nitroglycerin Sl Tabs [Nitrostat] 0.4 mg SL Q5M PRN 10/02/13 06/16/22 History Meclizine [Antivert] 12.5 mg PO HS@2100 10/22/20 06/16/22 History Cyclobenzaprine [Flexeril] 10 mg PO Q12H PRN 05/05/21 06/16/22 History Famotidine [Pepcid] 20 mg PO HS@209905/05/21 06/16/22 History Multivitamins, Thera [Multivitamin 1 tab PO DAILY@0905/05/21 06/16/22 History (formulary)] Acetaminophen Tab [Tylenol] 650 mg PO Q6HR PRN 06/10/21 06/16/22 History Cholecalciferol [Vitamin D3 (25 25 mcg PO DAILY@0906/10/21 06/16/22 History Mcg = 1000 Iu)] Fluticasone Propionate [Flovent 1 puff INHALATION RT-BID@0900,209906/10/21 06/16/22 History Hfa 110 mcg] Topiramate [Topamax] 25 mg PO HS@209906/10/21 06/16/22 History DULoxetine HCL [Cymbalta] 30 mg PO DAILY@0900 09/12/21 06/16/22 History Fluticasone Nasal [place] [Flonase 1 spray EA NOSTRIL BID@0900,209909/12/21 06/16/22 History Nasal [place]] ondansetron HCL [Zofran Oral Soln] 4 mg PO Q6H PRN 09/12/21 06/16/22 History ALPRAZolam [Xanax] 0.25 mg PO BID@0900,209906/16/22 06/16/22 History Apixaban [Eliquis] 2.5 mg PO BID@0900,209906/16/22 06/16/22 History Calcium Carbonate [Tums] 1,000 mg PO Q6H PRN 06/16/22 06/16/22 History Cranberry 450mg Tab 450 mg PO BID@0900,209906/16/22 06/16/22 History DULoxetine HCL [Cymbalta] 60 mg PO HS@209906/16/22 06/16/22 History Diclofenac Sodium [Voltaren 1 gm TOPICAL Q6H PRN 06/16/22 06/16/22 History Arthritis Pain 1% Gel] Dicyclomine [Bentyl] 10 mg PO TID@0900,1300,209906/16/22 06/16/22 History Gabapentin [Neurontin] 400 mg PO TID@0600,1400,2200 06/16/22 06/16/22 History HYDROcodone/APAP 5-325MG [[place] 1 tab PO Q6HR PRN 06/16/22 06/16/22 History 5-325] L.acidoph,Paracasei, B.lactis 2 cap PO DAILY@0900 06/16/22 06/16/22 History [Probiotic] Melatonin 10 mg PO HS PRN 06/16/22 06/16/22 History Meloxicam [Mobic] 7.5 mg PO DAILY@0900 06/16/22 06/16/22 History Methenamine Hippurate 1 gm PO TID@0900,1300,2100 06/16/22 06/16/22 History Psyllium Husk 100% [Metamucil 6 gm PO HS@209906/16/22 06/16/22 History Packet] cefUROXime axetiL [Ceftin] 500 mg PO TID@0900,1300,2100 06/16/22 06/16/22 History rOPINIRole HCL [Requip] 0.5 mg PO BID@0900,209906/16/22 06/16/22 History Allergies Allergy/AdvReac Type Severity Reaction Status Date / Time enoxaparin sodium Allergy Unknown RED LUMPS Verified 06/16/22 15:16 [From Lovenox] ON ABDOMEN AT INJECTION SITES erythromycin base Allergy Unknown Rash/Hives Verified 06/16/22 15:16 latex Allergy Unknown Itching Verified 06/16/22 15:16 adhesive Allergy Rash/Hives Verified 06/16/22 15:16 morphine Allergy Rash/Hives Verified 06/16/22 15:16 pioglitazone [From Actos] Allergy Swelling Verified 06/16/22 15:16 Sulfa (Sulfonamide Allergy Anaphylaxis Verified 06/16/22 15:16 Antibiotics) tetracycline [Tetracycline] Allergy Rash/Hives Verified 06/16/22 15:16 metformin AdvReac Diarrhea Verified 06/16/22 15:16 Physical Exam Vitals: Vital Signs Temp Pulse Pulse Resp BP BP Pulse Ox 06/17/22 08:51 99 06/17/22 07:18 97.1 F L 58 L 17 140/71 99 06/17/22 02:00 98.0 F 58 L 17 164/77 97 06/16/22 21:30 98.0 F 53 L 17 169/75 98 06/16/22 19:26 64 16 144/94 95 06/16/22 19:00 63 23 144/88 06/16/22 17:00 90 20 156/81 06/16/22 16:00 61 14 153/100 93 L 06/16/22 14:28 98.0 F 61 18 148/76 98 Intake and Output 06/16/22 06/17/22 06/17/22 22:59 06:59 14:59 Output Total 950 Balance -950 Output: Urine 950 Other: Weight 101.877 kg Results CBC & Chem 7: 06/17/22 08:48 06/17/22 08:48 Labs: Abnormal Lab Results - Last 24 Hours (Table) 06/16/22 06/16/22 06/17/22 Range/Units 15: 15: 00:45 Sodium 135 L (137-145) mmol/L BUN 21 H (7-17) mg/dL Glucose 189 H (74-99) mg/dL POC Glucose (mg/dL) 225 H (70-110) mg/dL Urine Appearance Cloudy H (Clear) Urine Blood Small H (Negative) Urine Nitrite Positive H (Negative) Ur Leukocyte Esterase Large H (Negative) Urine RBC 10 H (0-5) /hpf Urine WBC 154 H (0-5) /hpf Urine Bacteria Many H (None) /hpf 06/17/22 Range/Units 05:51 Sodium (137-145) mmol/L BUN (7-17) mg/dL Glucose (74-99) mg/dL POC Glucose (mg/dL) 234 H (70-110) mg/dL Urine Appearance (Clear) Urine Blood (Negative) Urine Nitrite (Negative) Ur Leukocyte Esterase (Negative) Urine RBC (0-5) /hpf Urine WBC (0-5) /hpf Urine Bacteria (None) /hpf Microbiology - Last 24 Hours (Table) 06/16/22 15:23 Urine Culture - Preliminary Urine,Voided Assessment and Plan Time with Patient: Greater than 30
[2022-06-17 20:13] LABS: Glucose,Whole Blood 183 mg/dL (70-110)
[2022-06-17] MEDS: FLUTICASONE 50MCG/SPRAY NASAL 16GM EA NOSTRIL SCH (20:21)
[2022-06-17] MEDS: FAMOTIDINE 20 MG TAB PO SCH (20:22)
[2022-06-17] MEDS: MECLIZINE 12.5 MG TAB PO SCH (20:22)
[2022-06-17] MEDS: DULoxetine HCL 60 MG CAPSULE.DR PO SCH (20:22)
[2022-06-17] MEDS ORDERED: APIXABAN 2.5 MG TABLET PO SCH (21:00)
[2022-06-17] MEDS: FLUTICASONE 110 MCG INHALER INHALATION SCH (21:16)
[2022-06-17] MEDS: TOPIRAMATE 25 MG TAB PO SCH (22:15)
[2022-06-17] MEDS: APIXABAN 5 MG TAB PO SCH (22:21)
[2022-06-17] MEDS: NYSTATIN 100,000 UNIT/GM POWD 15 GM TOPICAL SCH (23:00)
[2022-06-18] MEDS: PANTOPRAZOLE 40 MG TABLET PO SCH (05:58)
[2022-06-18] MEDS ORDERED: LEVOTHYROXINE 75 MCG TAB PO SCH (06:00)
[2022-06-18 06:09] LABS: Glucose,Whole Blood 208 mg/dL (70-110)
[2022-06-18] MEDS: INSULIN ASPART (NovoLOG) 100 UNIT/ML VIAL SQ SCH ×4 (06:58→22:24)
[2022-06-18] MEDS ORDERED: MELOXICAM 7.5 MG TAB PO SCH (09:00)
[2022-06-18] MEDS: DULoxetine HCL 30 MG CAPSULE.DR PO SCH (09:14)
[2022-06-18] MEDS: LACTOBACILLUS ACIDOPH & BULGAR 1 EACH PACKET PO SCH (09:14)
[2022-06-18] MEDS: MULTIVITAMINS, THERA 1 EACH TAB PO SCH (09:15)
[2022-06-18] MEDS: APIXABAN 5 MG TAB PO SCH ×2 (09:15→22:25)
[2022-06-18] MEDS: FLUTICASONE 50MCG/SPRAY NASAL 16GM EA NOSTRIL SCH ×2 (09:15→22:29)
[2022-06-18] MEDS: CHOLECALCIFEROL 25 MCG (1000 IU) TABLET PO SCH (09:15)
[2022-06-18] MEDS: FLUTICASONE 110 MCG INHALER INHALATION SCH ×2 (09:54→20:45)
[2022-06-18 11:52] LABS: Glucose,Whole Blood 200 mg/dL (70-110)
[2022-06-18] MEDS: ERTAPENEM 1 GM in SODIUM CHLORIDE 0.9% 50 ML IVPB SCH (12:25)
[2022-06-18] MEDS: NON FORMULARY DRUG (Methenamine Hippurate [Methenamine Hippurate] 1 GM Tablet) PO SCH ×3 (13:11→23:15)
--- NOTE | 2022-06-18 14:34 | P.PN ---
Subjective Progress Note Date: 06/18/22 Principal diagnosis: Urinary tract infection Patient is a 72-year-old female with a past medical history negative for diabetes mellitus COPD asthma DVT hypertension, OA, a [facility] resident the patient was sent to the ER for evaluation of mental status changes, patient did have a positive urine concern for symptomatic UTI with the recent urine culture positive for ESBL E. coli. On today's evaluation that is 06/18/2022, the patient is afebrile the patient is more awake and alert is currently breathing comfortably on room air and denies any chest pain shortness of breath or cough no abdominal pain no diarrhea Objective - Vital Signs Vital signs: Vital Signs Temp 98.4 F 06/18/22 07:11 Pulse 69 06/18/22 07:35 Resp 15 06/18/22 07:35 BP 168/90 06/18/22 07:11 Pulse Ox 97 06/18/22 07:11 FiO2 Intake & Output 06/17/22 06/18/22 06/18/22 18:59 06:59 18:59 Output Total 850 Balance -850 Output: Urine 850 Straight 400 Other: Voiding Method Indwelling Catheter Diaper Diaper Self-Catheterization Self-Catheterization # Voids 1 # Bowel Movements 1 1 1 - Exam GENERAL DESCRIPTION: An elderly female lying in bed in no distress RESPIRATORY SYSTEM: Unlabored breathing , decreased breath sounds at bases HEART: S1 S2 regular rate and rhythm , ABDOMEN: Soft , no tenderness EXTREMITIES: No edema feet - Labs CBC & Chem 7: 06/17/22 08:48 06/17/22 08:48 Labs: Abnormal Lab Results - Last 24 Hours (Table) 06/16/22 06/17/22 06/17/22 Range/Units 15:23 11:29 16:25 POC Glucose (mg/dL) 144 H 200 H (70-110) mg/dL Hemoglobin A1c 8.8 H (0.0-6.0) % 06/17/22 06/18/22 Range/Units 20:11 06:08 POC Glucose (mg/dL) 183 H 208 H (70-110) mg/dL Hemoglobin A1c (0.0-6.0) % Microbiology - Last 24 Hours (Table) 06/16/22 15:23 Urine Culture - Preliminary Urine,Voided Gram Neg Bacilli Assessment and Plan (1) UTI (urinary tract infection) Current Visit: Yes Status: Acute Code(s): N39.0 - URINARY TRACT INFECTION, SITE NOT SPECIFIED SNOMED Code(s): 57826133 Plan: 1patient is in the hospital mental status changes likely multifactorial in this patient apparently did have history of recurrent UTI did have a positive UA with a recent urine culture on 06/14/2022 was positive for ESBL E. coli it is not clearly the patient has received an antibiotic for that pathogen in the ou tpatient setting at the halfway 2-patient to continue Invanz 1 g daily, while waiting for urine culture to be finalize Patient did have ultrasound of the kidneys which was suboptimal study but did not mention any right-sided hydronephrosis Time with Patient: Less than 30
[2022-06-18 16:52] LABS: Glucose,Whole Blood 190 mg/dL (70-110)
[2022-06-18] MEDS ORDERED: DEXTROSE 5%-0.45% NACL 1,000 ML IV SCH (17:45)
--- NOTE | 2022-06-18 17:49 | P.PN ---
Subjective This is a 72 year old female who follows with Dr. Joel in the office, patient has medical history of asthma/COPD, diabetes, DVT, hypertension, thyroid disorder, heart cath and frequent UTI's. Patient is brought to the hospital from [facility] for altered mental status. Patient was recently hospitalized and treated for E. Coli ESBL urinary tract infection. Patient has been at [facility] for rehab. She is alert x 0-1 on admission, unable to state date of or location. Patient does admit to abdominal cramping and discomfort as well as general ma laise and overall not feeling well. Patient reports having fever also. Denies nausea, vomiting or diarrhea. Denies shortness of breath, denies chest pain. Most of the history is taken from the chart which previous admission patient was alert and oriented x 2 to 3. Initial work up reveals no white count, sodium level of 135, BUN 21, creatinine 0.71, blood glucose of 189 and hemoglobin A1C of 8.8. Troponin is negative. Chest xray and brain CT are unremarkable. Patient is found to have nitrate positive urine with large amount of leukocyte esterase. Patient did have a urinalysis and culture done outpatient on 06/14/2022 and patient has been on oral ceftin for this. Culture has been finalized and patient is found to have ESBL E. Coli UTI. Patient is admitted to the hospital for altered mental status and UTI and has been started on IV ceftriaxone. Infectious disease has been consulted for further management of antibiotics. Patient has been incontinent of urine, however bladder scan reveals greater than 400 mls in the urinary bladder and strait catheterization was done. Renal ultrasound has been ordered by ID to rule out obstructive uropathy. Patient continues with acute confusion likely from infection and polypharmacy for which norco, gabapentin, and muscle relaxers will be held. 06/18/2022 Patient is a still confused to time place and person, also she has no insight into her illness, patient sitting in chair not in distress looks relaxed denies any urinary symptoms Her sugar still elevated Vitals his stable Rule out in the collecting Gingiva fluids to half-normal saline at 50 mL Continue with Invanz per ID team and follow-up urine culture Continue with home dose of leg was Objective - Vital Signs Vital signs: Vital Signs Temp 98.4 F 06/18/22 07:11 Pulse 69 06/18/22 07:35 Resp 15 06/18/22 07:35 BP 168/90 06/18/22 07:11 Pulse Ox 97 06/18/22 07:11 FiO2 Intake & Output 06/17/22 06/18/22 06/18/22 18:59 06:59 18:59 Output Total 850 Balance -850 Output: Urine 850 Straight 400 Other: Voiding Method Indwelling Catheter Diaper Diaper Self-Catheterization Self-Catheterization # Voids 1 # Bowel Movements 1 1 1 - Exam -GENERAL: The patient is alert and oriented x0, not in any acute distress. Well developed, well nourished. HEENT: Pupils are round and equally reacting to light. EOMI. No scleral icterus. No conjunctival pallor. Normocephalic, atraumatic. No pharyngeal erythema. No thyromegaly. CARDIOVASCULAR: S1 and S2 present. No murmurs, rubs, or gallops. PULMONARY: Chest is clear to auscultation, no wheezing or crackles. ABDOMEN: Soft, nontender, nondistended, normoactive bowel sounds. No palpable organomegaly. MUSCULOSKELETAL: No joint swelling or deformity. EXTREMITIES: No cyanosis, clubbing, or pedal edema. NEUROLOGICAL: Gross neurological examination did not reveal any focal deficits. SKIN: No rashes. no petechiae. - Labs CBC & Chem 7: 06/17/22 08:48 06/17/22 08:48 Labs: Abnormal Lab Results - Last 24 Hours (Table) 06/16/22 06/17/22 06/17/22 Range/Units 15:23 16:25 20:11 POC Glucose (mg/dL) 200 H 183 H (70-110) mg/dL Hemoglobin A1c 8.8 H (0.0-6.0) % 06/18/22 06/18/22 Range/Units 06:08 11:41 POC Glucose (mg/dL) 208 H 200 H (70-110) mg/dL Hemoglobin A1c (0.0-6.0) % Microbiology - Last 24 Hours (Table) 06/16/22 15:23 Urine Culture - Preliminary Urine,Voided Gram Neg Bacilli Assessment and Plan Assessment: Altered mental status likely from acute toxic and metabolic encephalopathy from recurrent uti and polypharmacy Acute urinary tract infection with sepsis present on admission with outpatient culture showing E. Coli ESBL UTI Urinary retention requiring strait catherization and monitoring History of Asthma/COPD with no acute exacerbation Diabetes Mellitus type 2 uncontrolled with A1C of 8.8 Hypertension History of DVT anticoaugulated with eliquis History of UTI with MDRO History of C.Dif Colitis Thyroid disorder Gastroesophageal reflux disease Plan: Continuing Invanz Continue with half-normal saline at 50 mL per hour ID team on the case And the neck lifting and monitor glucose DC Mobic Labs and medication were reviewed.. Continue same treatment. Continue with symptomatic treatment. Resume home medication. Monitor labs and vitals. DVT and GI prophylaxis. Further recommendations as per clinical course of the patient DVT prophylaxis: Eliquis GI Prophylaxis: Ppi Prognosis is guarded
--- NOTE | 2022-06-18 18:04 | P.PN ---
Progress Note - Text Progress Note Date: 06/18/22 Notified at 1716 patient requires a peer to peer with [facility]. Called the number provided at [phone] and the voicemail box was not accepting a message for return call. Attempted to reach the needle punch machine operator helper for further assistance and received a busy signal and was disconnected. Will attempt to reach out to [facility] during business hours tomorrow 06/19/2022 to schedule a peer to peer.
[2022-06-18] MEDS: NYSTATIN 100,000 UNIT/GM POWD 15 GM TOPICAL SCH ×2 (18:33→22:26)
[2022-06-18] MEDS: SODIUM CHLORIDE 0.45% 1,000 ML IV SCH (18:56)
[2022-06-18] MEDS: SODIUM CHLORIDE 0.9% 1,000 ML IV SCH ×2 (18:57→23:16)
[2022-06-18 20:40] LABS: Glucose,Whole Blood 178 mg/dL (70-110)
[2022-06-18] MEDS ORDERED: INSULIN DETEMIR (LEVEMIR) 100 UNIT/ML SYR SQ SCH (21:00)
[2022-06-18] MEDS: MECLIZINE 12.5 MG TAB PO SCH (22:25)
[2022-06-18] MEDS: DULoxetine HCL 60 MG CAPSULE.DR PO SCH (22:25)
[2022-06-18] MEDS: FAMOTIDINE 20 MG TAB PO SCH (22:26)
[2022-06-18] MEDS: TOPIRAMATE 25 MG TAB PO SCH (22:26)
[2022-06-18] MEDS: LINAGLIPTIN 5 MG TABLET PO SCH (22:27)
[2022-06-19 05:52] LABS: Glucose,Whole Blood 180 mg/dL (70-110)
[2022-06-19] MEDS ORDERED: LEVOTHYROXINE 88 MCG TAB PO SCH (06:00)
[2022-06-19] MEDS: INSULIN ASPART (NovoLOG) 100 UNIT/ML VIAL SQ SCH ×6 (06:15→18:01)
[2022-06-19] MEDS: PANTOPRAZOLE 40 MG TABLET PO SCH (06:17)
[2022-06-19 08:04] VITALS: RESP 17
[2022-06-19] MEDS ORDERED: ONDANSETRON 4 MG/2 ML VIAL IVP PRN (08:10)
[2022-06-19 08:18] LABS: African American GFR (CKD) >90 (>60 ml/min/1.73 sqM); Anion Gap 9 mmol/L; Blood Urea Nitrogen 16 mg/dL (7-17); Calcium 9.4 mg/dL (8.4-10.2); Carbon Dioxide 23 mmol/L (22-30); Chloride 105 mmol/L (98-107); Glucose 159 mg/dL (74-99); Non-African American GFR(CKD) >90 (>60 ml/min/1.73 sqM); Sodium 137 mmol/L (137-145)
[2022-06-19 08:30] LABS: Potassium 3.8 mmol/L (3.5-5.1)
[2022-06-19] MEDS: LINAGLIPTIN 5 MG TABLET PO SCH (08:48)
[2022-06-19] MEDS: APIXABAN 5 MG TAB PO SCH (08:48)
[2022-06-19] MEDS: CHOLECALCIFEROL 25 MCG (1000 IU) TABLET PO SCH (08:49)
[2022-06-19] MEDS: MULTIVITAMINS, THERA 1 EACH TAB PO SCH (08:49)
[2022-06-19] MEDS: NON FORMULARY DRUG (Methenamine Hippurate [Methenamine Hippurate] 1 GM Tablet) PO SCH ×2 (08:49→13:36)
[2022-06-19] MEDS: LACTOBACILLUS ACIDOPH & BULGAR 1 EACH PACKET PO SCH (08:49)
[2022-06-19] MEDS: FLUTICASONE 50MCG/SPRAY NASAL 16GM EA NOSTRIL SCH (08:50)
[2022-06-19] MEDS: DULoxetine HCL 30 MG CAPSULE.DR PO SCH (08:50)
[2022-06-19] MEDS: NYSTATIN 100,000 UNIT/GM POWD 15 GM TOPICAL SCH (08:50)
[2022-06-19] MEDS ORDERED: LOSARTAN 25 MG TAB PO SCH (09:00)
[2022-06-19] MEDS: FLUTICASONE 110 MCG INHALER INHALATION SCH (09:32)
[2022-06-19 11:06] VITALS: TEMP 98.1
[2022-06-19 11:48] LABS: Glucose,Whole Blood 181 mg/dL (70-110)
[2022-06-19 13:22] VITALS: BP 143/77; PULSE 69
[2022-06-19] MEDS: ERTAPENEM 1 GM in SODIUM CHLORIDE 0.9% 50 ML IVPB SCH (13:37)
--- NOTE | 2022-06-19 15:58 | P.DS ---
Providers Date of admission: 06/16/22 19:43 Expected date of discharge: 06/19/22 Attending physician: Manda Bowman Consults: 06/17/22 11:18 Consult Physician Routine Consulting Provider: Kenyon Fine Consult Reason/Comments: UTI, Hx ESBL UTI Do you want consulting provider notified?: Yes Primary care physician: Tiarra Joel [facility] Course: 72 year old female who follows with Dr. Joel in the office, patient has medical history of asthma/COPD, diabetes, DVT, hypertension, thyroid disorder, heart cath and frequent UTI's. Patient is brought to the hospital from [facility] for altered mental status. Patient was recently hospitalized and treated for E. Coli ESBL urinary tract infection. Patient has been at [facility] for rehab. She is alert x 0-1 on admission, unable to state date of or location. Patient does admit to abdominal cramping and discomfort as well as general malaise and overall not feeling well. Patient reports having fever also. Denies nausea, vomiting or diarrhea. Denies shortness of breath, denies chest pain. Most of the history is taken from the chart which previous admission patient was alert and oriented x 2 to 3. Initial work up reveals no white count, sodium level of 135, BUN 21, creatinine 0.71, blood glucose of 189 and hemoglobin A1C of 8.8. Troponin is negative. Chest xray and brain CT are unremarkable. Patient is found to have nitrate positive urine with large amount of leukocyte esterase. Patient did have a urinalysis and culture done outpatient on 06/14/2022 and patient has been on oral ceftin for this. Culture has been finalized and patient is found to have ESBL E. Coli UTI. Patient is admitted to the hospital for altered mental status and UTI and has been started on IV ceftriaxone. Infectious disease has been consulted for further management of antibiotics. Patient has been incontinent of urine, however bladder scan reveals greater than 400 mls in the urinary bladder and strait catheterization was done. Renal ultrasound has been ordered by ID to rule out obstructive uropathy. Patient continues with acute confusion likely from infection and polypharmacy for which norco, gabapentin, and muscle relaxers will be held. Altered mental status likely from acute toxic and metabolic encephalopathy from recurrent uti and polypharmacy Acute urinary tract infection with sepsis present on admission with outpatient culture showing E. Coli ESBL UTI Urinary retention requiring strait catherization and monitoring History of Asthma/COPD with no acute exacerbation Diabetes Mellitus type 2 uncontrolled with A1C of 8.8 Hypertension History of DVT anticoaugulated with eliquis History of UTI with MDRO History of C.Dif Colitis Thyroid disorder Gastroesophageal reflux disease GI prophylaxis DVT prophylaxis Resumed on eliquis Full Code Plan Antibiotics changed to Ertapenem and infectious disease following Hold norco, gabapentin, flexeril and xanax Repeat urinalysis and culture pending Resume appropriate home medications Continue normal saline PT/OT consultation Continue all other supportive care 06/18/2022 Patient is a still confused to time place and person, also she has no insight into her illness, patient sitting in chair not in distress looks relaxed denies any urinary symptoms Her sugar still elevated Vitals his stable Rule out in the collecting Gingiva fluids to half-normal saline at 50 mL Continue with Invanz per ID team and follow-up urine culture -- Patient cleared for dc by ID with plan to continue IV antibiotics post dc; Midline in place Patient is stable for dc Plan - Discharge Summary Discharge Rx Participant: No New Discharge Prescriptions: No Action Levothyroxine Sodium [Synthroid] 150 mcg PO SUTUTHSA@0600 Levothyroxine Sodium [Synthroid] 175 mcg PO MOWEFR@0600 Nitroglycerin Sl Tabs [Nitrostat] 0.4 mg SL Q5M PRN PRN Reason: Chest Pain Meclizine [Antivert] 12.5 mg PO HS@2100 Famotidine [Pepcid] 20 mg PO HS@2100 Fluticasone Propionate [Flovent Hfa 110 mcg] 1 puff INHALATION RT- BID@0900,2100 Fluticasone Nasal [place] [Flonase Nasal [place]] 1 spray EA NOSTRIL BID@0900,2100 DULoxetine HCL [Cymbalta] 30 mg PO DAILY@0900 Diclofenac Sodium [Voltaren Arthritis Pain 1% Gel] 1 gm TOPICAL Q6H PRN PRN Reason: LEFT HIP PAIN Calcium Carbonate [Tums] 1,000 mg PO Q6H PRN PRN Reason: Indigestion Dicyclomine [Bentyl] 10 mg PO TID@0900,1300,2100 Cranberry 450mg Tab 450 mg PO BID@0900,2100 Cyclobenzaprine [Flexeril] 10 mg PO Q12H PRN PRN Reason: Muscle Spasm Multivitamins, Thera [Multivitamin (formulary)] 1 tab PO DAILY@0900 Cholecalciferol [Vitamin D3 (25 Mcg = 1000 Iu)] 25 mcg PO DAILY@0900 Acetaminophen Tab [Tylenol] 650 mg PO Q6HR PRN PRN Reason: Fever And/ Or Pain Topiramate [Topamax] 25 mg PO HS@2100 ondansetron HCL [Zofran Oral Soln] 4 mg PO Q6H PRN PRN Reason: Nausea HYDROcodone/APAP 5-325MG [[place] 5-325] 1 tab PO Q6HR PRN PRN Reason: Pain Melatonin 10 mg PO HS PRN PRN Reason: SLEEP Methenamine Hippurate 1 gm PO TID@0900,1300,2100 Gabapentin [Neurontin] 400 mg PO TID@0600,1400,2200 cefUROXime axetiL [Ceftin] 500 mg PO TID@0900,1300,2100 rOPINIRole HCL [Requip] 0.5 mg PO BID@0900,2100 ALPRAZolam [Xanax] 0.25 mg PO BID@0900,2100 Apixaban [Eliquis] 2.5 mg PO BID@0900,2100 Psyllium Husk 100% [Metamucil Packet] 6 gm PO HS@2100 Meloxicam [Mobic] 7.5 mg PO DAILY@0900 L.acidoph,Paracasei, B.lactis [Probiotic] 2 cap PO DAILY@0900 DULoxetine HCL [Cymbalta] 60 mg PO HS@2100 Discharge Medication List Levothyroxine Sodium [Synthroid] 150 mcg PO SUTUTHSA@59910/02/13 [History] Levothyroxine Sodium [Synthroid] 175 mcg PO MOWEFR@59910/02/13 [History] Nitroglycerin Sl Tabs [Nitrostat] 0.4 mg SL Q5M PRN 10/02/13 [History] Meclizine [Antivert] 12.5 mg PO HS@209910/22/20 [History] Cyclobenzaprine [Flexeril] 10 mg PO Q12H PRN 05/05/21 [History] Famotidine [Pepcid] 20 mg PO HS@2100 05/05/21 [History] Multivitamins, Thera [Multivitamin (formulary)] 1 tab PO DAILY@0900 05/05/21 [History] Acetaminophen Tab [Tylenol] 650 mg PO Q6HR PRN 06/10/21 [History] Cholecalciferol [Vitamin D3 (25 Mcg = 1000 Iu)] 25 mcg PO DAILY@89906/10/21 [History] Fluticasone Propionate [Flovent Hfa 110 mcg] 1 puff INHALATION RT-BID@899,209906/10/21 [History] Topiramate [Topamax] 25 mg PO HS@209906/10/21 [History] DULoxetine HCL [Cymbalta] 30 mg PO DAILY@89909/12/21 [History] Fluticasone Nasal [place] [Flonase Nasal [place]] 1 spray EA NOSTRIL BID@899,209909/12/21 [History] ondansetron HCL [Zofran Oral Soln] 4 mg PO Q6H PRN 09/12/21 [History] ALPRAZolam [Xanax] 0.25 mg PO BID@0900,209906/16/22 [History] Apixaban [Eliquis] 2.5 mg PO BID@0900,209906/16/22 [History] Calcium Carbonate [Tums] 1,000 mg PO Q6H PRN 06/16/22 [History] Cranberry 450mg Tab 450 mg PO BID@0900,209906/16/22 [History] DULoxetine HCL [Cymbalta] 60 mg PO HS@209906/16/22 [History] Diclofenac Sodium [Voltaren Arthritis Pain 1% Gel] 1 gm TOPICAL Q6H PRN 06/16/22 [History] Dicyclomine [Bentyl] 10 mg PO TID@0900,1300,209906/16/22 [History] Gabapentin [Neurontin] 400 mg PO TID@0600,1400,2200 06/16/22 [History] HYDROcodone/APAP 5-325MG [[place] 5-325] 1 tab PO Q6HR PRN 06/16/22 [History] L.acidoph,Paracasei, B.lactis [Probiotic] 2 cap PO DAILY@0900 06/16/22 [History] Melatonin 10 mg PO HS PRN 06/16/22 [History] Meloxicam [Mobic] 7.5 mg PO DAILY@0906/16/22 [History] Methenamine Hippurate 1 gm PO TID@0900,1299,209906/16/22 [History] Psyllium Husk 100% [Metamucil Packet] 6 gm PO HS@209906/16/22 [History] cefUROXime axetiL [Ceftin] 500 mg PO TID@0900,1300,209906/16/22 [History] rOPINIRole HCL [Requip] 0.5 mg PO BID@899,209906/16/22 [History] Follow up Appointment(s)/Referral(s): Tiarra Joel MD [Primary Care Provider] - 1-2 days [facility] [place], [NON-STAFF] - As Needed Patient Instructions/Handouts: Urinary Tract Infection in Women (DC) Activity/Diet/Wound Care/Special Instructions: Per d/c antibiotic: Invanz 1gm IVPB daily x7d
--- NOTE | 2022-06-19 16:09 | P.PN ---
Subjective Progress Note Date: 06/19/22 Principal diagnosis: Urinary tract infection Patient is a 72-year-old female with a past medical history negative for diabetes mellitus COPD asthma DVT hypertension, OA, a [facility] resident the patient was sent to the ER for evaluation of mental status changes, patient did have a positive urine concern for symptomatic UTI with the recent urine culture positive for ESBL E. coli. On today's evaluation that is 06/19/2022, the patient remains to be afebrile the patient is breathing comfortably on room air, the patient denies any chest pain shortness of breath or cough no abdominal pain no diarrhea Objective - Vital Signs Vital signs: Vital Signs Temp 98.1 F 06/19/22 10:52 Pulse 73 06/19/22 10:52 Resp 17 06/19/22 10:52 BP 133/84 06/19/22 10:52 Pulse Ox 95 06/19/22 10:52 FiO2 Intake & Output 06/18/22 06/19/22 06/19/22 18:59 06:59 18:59 Intake Total 450 240 Balance 450 240 Intake: Intake, IV Titration 150 Amount Sodium Chloride 0.9% 1, 150 000 ml @ 75 mls/hr IV . [id number] [facility] Rx#:[id number] Oral 300 240 Other: Voiding Method Diaper Diaper Diaper Self-Catheterization Incontinent Incontinent # Voids 2 1 1 # Bowel Movements 2 - Exam GENERAL DESCRIPTION: An elderly female lying in bed in no distress RESPIRATORY SYSTEM: Unlabored breathing , decreased breath sounds at bases HEART: S1 S2 regular rate and rhythm , ABDOMEN: Soft , no tenderness EXTREMITIES: No edema feet - Labs CBC & Chem 7: 06/17/22 08:48 06/19/22 06:24 Labs: Abnormal Lab Results - Last 24 Hours (Table) 06/18/22 06/18/22 06/19/22 Range/Units 16:51 20:38 05:49 Creatinine (0.52-1.04) mg/dL Glucose (74-99) mg/dL POC Glucose (mg/dL) 190 H 178 H 180 H (70-110) mg/dL 06/19/22 06/19/22 Range/Units 06:24 11:47 Creatinine 0.51 L (0.52-1.04) mg/dL Glucose 159 H (74-99) mg/dL POC Glucose (mg/dL) 181 H (70-110) mg/dL Microbiology - Last 24 Hours (Table) 06/16/22 15:23 Urine Culture - Final Urine,Voided Escherichia coli Assessment and Plan (1) UTI (urinary tract infection) Current Visit: Yes Status: Acute Code(s): N39.0 - URINARY TRACT INFECTION, SITE NOT SPECIFIED SNOMED Code(s): 82094507 Plan: 1patient is in the hospital mental status changes likely multifactorial in this patient apparently did have history of recurrent UTI did have a positive UA with a recent urine culture on 06/14/2022 was positive for ESBL E. coli it is not clearly the patient has received an antibiotic for that pathogen in [facility] the [facility] 2-Patient did have ultrasound of the kidneys which was suboptimal study but did not mention any right-sided hydronephrosis 3plan is to get the midline and continue with IV Invanz for 1 week to finish a course of therapy Time with Patient: Less than 30
[2022-06-19 16:32] LABS: Glucose,Whole Blood 210 mg/dL (70-110)
[2022-06-19] MEDS: SODIUM CHLORIDE 0.45% 1,000 ML IV SCH (18:02)
[2022-06-19] MEDS ORDERED: INSULIN DETEMIR (LEVEMIR) 100 UNIT/ML SYR SQ SCH (21:00)
== END 2022-06-19 18:40 | DRG 871 ==
LOC: EC 14:20 → 4SSUR 19:43
PROVIDERS: ADMIT Internal Medicine; ATTEND Internal Medicine
DX: A41.51 Sepsis due to Escherichia coli [E. coli] (principal); G92.8 Other toxic encephalopathy; N39.0 Urinary tract infection, site not specified; J98.11 Atelectasis; E11.9 Type 2 diabetes mellitus without complications; J44.9 Chronic obstructive pulmonary disease, unspecified; I10 Essential (primary) hypertension; E07.9 Disorder of thyroid, unspecified; B96.20 Unspecified Escherichia coli [E. coli] as the cause of diseases classified elsewhere; M19.90 Unspecified osteoarthritis, unspecified site; R32 Unspecified urinary incontinence; T50.915A Adverse effect of multiple unspecified drugs, medicaments and biological substances, initial encounter; R33.9 Retention of urine, unspecified; K21.9 Gastro-esophageal reflux disease without esophagitis; Z96.653 Presence of artificial knee joint, bilateral; Z98.61 Coronary angioplasty status; Z86.14 Personal history of Methicillin resistant Staphylococcus aureus infection; Z82.49 Family history of ischemic heart disease and other diseases of the circulatory system; Z86.718 Personal history of other venous thrombosis and embolism; Z88.2 Allergy status to sulfonamides; Z88.5 Allergy status to narcotic agent; Z91.048 Other nonmedicinal substance allergy status; Z91.040 Latex allergy status; Z88.1 Allergy status to other antibiotic agents; Z88.8 Allergy status to other drugs, medicaments and biological substances; Z79.1 Long term (current) use of non-steroidal anti-inflammatories (NSAID); Z79.899 Other long term (current) drug therapy; Z79.891 Long term (current) use of opiate analgesic; Z79.01 Long term (current) use of anticoagulants; Z79.51 Long term (current) use of inhaled steroids; Z79.890 Hormone replacement therapy; Z87.440 Personal history of urinary (tract) infections; Z86.19 Personal history of other infectious and parasitic diseases
CPT/HCPCS: 36410; 36415; 51702; 70450; 71046; 76770; 76937; 80048; 80053; 81001; 83036; 84484; 85025; 85610; 85730; 87077; 87086; 87186; 93005; 94640; 94760; 96365; 99285

== ENCOUNTER 2022-08-08 03:38 | Inpatient (IN) | payer MEDICARE, OTHER ==
[2022-08-08 05:13] LABS: Basophils % (A) 0 %; Eosinophils # (A) 0.1 k/uL (0-0.7); Eosinophils % (A) 1 %; HCT 36.9 % (34.0-46.0); Lymphocytes # (A) 1.6 k/uL (1.0-4.8); Lymphocytes % (A) 26 %; MCH 30.7 pg (25.0-35.0); MCHC 32.2 g/dL (31.0-37.0); MCV 95.4 fL (80.0-100.0); Monocytes # (A) 0.4 k/uL (0-1.0); Monocytes % (A) 6 %; Neutrophils # (A) 4.1 k/uL (1.3-7.7); Neutrophils % (A) 64 %; Platelet Count 212 k/uL (150-450); RBC 3.87 m/uL (3.80-5.40); RDW 12.8 % (11.5-15.5); VBG PH 7.44 (7.31-7.41); WBC 6.4 k/uL (3.8-10.6)
[2022-08-08 05:21] LABS: Partial Thromboplastin Time 22.9 sec (22.0-30.0); Prothrombin Time 10.3 sec (9.0-12.0)
[2022-08-08 05:22] LABS: ALT 19 U/L (4-34); AST 18 U/L (14-36); African American GFR (CKD) >90 (>60 ml/min/1.73 sqM); Albumin 3.3 g/dL (3.5-5.0); Alkaline Phosphatase 100 U/L (38-126); Anion Gap 10 mmol/L; Blood Urea Nitrogen 23 mg/dL (7-17); Calcium 8.5 mg/dL (8.4-10.2); Carbon Dioxide 24 mmol/L (22-30); Chloride 102 mmol/L (98-107); Glucose 152 mg/dL (74-99); Non-African American GFR(CKD) 90 (>60 ml/min/1.73 sqM); Potassium 3.8 mmol/L (3.5-5.1); Sodium 136 mmol/L (137-145); Total Bilirubin 0.4 mg/dL (0.2-1.3)
[2022-08-08 05:36] LABS: HGB 11.9 gm/dL (11.4-16.0)
--- NOTE | 2022-08-08 06:31 | ED ---
Altered Mental Status HPI - General Chief Complaint: Altered Mental Status Stated Complaint: Altered Mental Time Seen by Provider: 08/08/22 03:59 Source: EMS Mode of arrival: ambulatory Limitations: altered mental status - History of Present Illness Initial Comments: This patient is 72-year-old woman sent from [facility] for being more disoriented than his usual. It is reported that the last time she was like this she had urinary tract infection. When I interview the patient, she denies complaints. She denies headache, chest, back and abdomen pain. The patient does appear to have underlying dementia but is able to answer direct questions. MD Complaint: confusion Onset/Timin -: days(s) Severity: moderate Context: history of similar presentation Associated Symptoms: denies other symptoms - Related Data Home Medications Medication Instructions Recorded Confirmed Levothyroxine Sodium [Synthroid] 150 mcg PO SUTUTHSA@59910/02/13 06/16/22 Levothyroxine Sodium [Synthroid] 175 mcg PO MOWEFR@59910/02/13 06/16/22 Nitroglycerin Sl Tabs [Nitrostat] 0.4 mg SL Q5M PRN 10/02/13 06/16/22 Meclizine [Antivert] 12.5 mg PO HS@209910/22/20 06/16/22 Cyclobenzaprine [Flexeril] 10 mg PO Q12H PRN 05/05/21 06/16/22 Famotidine [Pepcid] 20 mg PO HS@209905/05/21 06/16/22 Multivitamins, Thera [Multivitamin 1 tab PO DAILY@89905/05/21 06/16/22 (formulary)] Acetaminophen Tab [Tylenol] 650 mg PO Q6HR PRN 06/10/21 06/16/22 Cholecalciferol [Vitamin D3 (25 25 mcg PO DAILY@89906/10/21 06/16/22 Mcg = 1000 Iu)] Fluticasone Propionate [Flovent 1 puff INHALATION RT-BID@899,209906/10/21 06/16/22 Hfa 110 mcg] Topiramate [Topamax] 25 mg PO HS@209906/10/21 06/16/22 DULoxetine HCL [Cymbalta] 30 mg PO DAILY@89909/12/21 06/16/22 Fluticasone Nasal [place] [Flonase 1 spray EA NOSTRIL BID@0900,209909/12/21 06/16/22 Nasal [place]] ondansetron HCL [Zofran Oral Soln] 4 mg PO Q6H PRN 09/12/21 06/16/22 Apixaban [Eliquis] 2.5 mg PO BID@0900,209906/16/22 06/16/22 Calcium Carbonate [Tums] 1,000 mg PO Q6H PRN 06/16/22 06/16/22 Cranberry 450mg Tab 450 mg PO BID@0900,209906/16/22 06/16/22 DULoxetine HCL [Cymbalta] 60 mg PO HS@209906/16/22 06/16/22 Diclofenac Sodium [Voltaren 1 gm TOPICAL Q6H PRN 06/16/22 06/16/22 Arthritis Pain 1% Gel] Dicyclomine [Bentyl] 10 mg PO TID@0900,1300,209906/16/22 06/16/22 L.acidoph,Paracasei, B.lactis 2 cap PO DAILY@0900 06/16/22 06/16/22 [Probiotic] Melatonin 10 mg PO HS PRN 06/16/22 06/16/22 Methenamine Hippurate 1 gm PO TID@0900,1300,209906/16/22 06/16/22 Psyllium Husk 100% [Metamucil 6 gm PO HS@209906/16/22 06/16/22 Packet] rOPINIRole HCL [Requip] 0.5 mg PO BID@0900,209906/16/22 06/16/22 Previous Rx's Medication Instructions Recorded ALPRAZolam [Xanax] 0.25 mg PO BID@0900,2099 PRN #4 tab 06/19/22 Ertapenem [INVanz] 1 gm IVPB DAILY@1200 7 Days #7 each 06/19/22 HYDROcodone/APAP 5-325MG [Sidman 1 tab PO Q8H PRN #4 tab 06/19/22 5-325] INSULIN ASPART (NovoLOG) [NovoLOG 0 unit SQ ACHS each 06/19/22 (formulary)] INSULIN ASPART (NovoLOG) [NovoLOG 3 unit SQ AC-TID each 06/19/22 (formulary)] Linagliptin [Tradjenta] 5 mg PO DAILY tab 06/19/22 Losartan [Cozaar] 25 mg PO DAILY tab 06/19/22 Nystatin 100,000 Unit/gm Powd 1 applic TOPICAL BID each 06/19/22 [Mycostatin Powder] Pantoprazole [Protonix] 40 mg PO AC-BRKFST tab 06/19/22 Allergies Allergy/AdvReac Type Severity Reaction Status Date / Time enoxaparin sodium Allergy Unknown RED LUMPS Verified 06/16/22 15:16 [From Lovenox] ON ABDOMEN AT INJECTION SITES erythromycin base Allergy Unknown Rash/Hives Verified 06/16/22 15:16 latex Allergy Unknown Itching Verified 06/16/22 15:16 adhesive Allergy Rash/Hives Verified 06/16/22 15:16 morphine Allergy Rash/Hives Verified 06/16/22 15:16 pioglitazone [From Actos] Allergy Swelling Verified 06/16/22 15:16 Sulfa (Sulfonamide Allergy Anaphylaxis Verified 06/16/22 15:16 Antibiotics) tetracycline [Tetracycline] Allergy Rash/Hives Verified 06/16/22 15:16 metformin AdvReac Diarrhea Verified 06/16/22 15:16 Review of Systems ROS Statement: Those systems with pertinent positive or pertinent negative responses have been documented in the HPI. ROS Other: All systems not noted in ROS Statement are negative. Limitations: ROS unobtainable due to patients medical condition Respiratory: Denies: dyspnea Cardiovascular: Denies: chest pain Gastrointestinal: Denies: abdominal pain Musculoskeletal: Denies: back pain Neurological: Denies: headache Past Medical History Past Medical History: Asthma, COPD, Diabetes Mellitus, Deep Vein Thrombosis ( DVT), Eye Disorder, GERD/Reflux, Hypertension, Osteoarthritis (OA), Pneumonia, Skin Disorder, Thyroid Disorder Additional Past Medical History / Comment(s): MRSA infection rt foot 5th digit and side of rt foot, Hx GLAUCOMA, TMJ, RENAL CALCULI, UTIs, DVT X 5 ( STATES CAUSED BY CONTROL PILLS AND HORMONES),[place], HAND TREMORS History of Any Multi-Drug Resistant Organisms: ESBL, MRSA Date of last positivie culture/infection: 01/09/22 ESBL; 06/20/21 MRSA MDRO Source:: Urine-ESBL; Foot-MRSA Past Surgical History: Back Surgery, Bladder Surgery, Breast Surgery, Heart Catheterization, Hysterectomy, Joint Replacement, Orthopedic Surgery, Tonsillectomy Additional Past Surgical History / Comment(s): 04/17/16 arthrotomy removal olecranon spur and loose bodies R elbow. , JULIANNE TOTAL HIP, LAPAROSCOPY, BREAST BIOPSY, JULIANNE CARPAL TUNNEL, JULIANNE KNEE REPLACEMENT, JULIANNE ROTATOR CUFF REPAIR, LEFT FOOT SURG, Right foot bursa removal, Past Anesthesia/Blood Transfusion Reactions: Postoperative Nausea & Vomiting (PONV) Past Psychological History: No Psychological Hx Reported Smoking Status: Unknown if ever smoked Past Alcohol Use History: Rare Past Drug Use History: None Reported - Past Family History Mother Family Medical History: Hyperlipidemia, Hypertension Additional Family Medical History / Comment(s): Mother at age 96. Father Family Medical History: Osteoarthritis (OA) Sister(s) Family Medical History: Pulmonary Embolus General Exam Limitations: altered mental status General appearance: alert, in no apparent distress Head exam: Present: atraumatic, normocephalic Eye exam: Present: normal appearance. Absent: scleral icterus, conjunctival injection ENT exam: Present: mucous membranes dry Neck exam: Present: normal inspection, full ROM. Absent: meningismus Respiratory exam: Present: normal lung sounds bilaterally, rales (Bilateral bases). Absent: respiratory distress, wheezes, rhonchi, stridor Cardiovascular Exam: Present: regular rate, normal rhythm, normal heart sounds. Absent: systolic murmur, diastolic murmur, rubs, gallop GI/Abdominal exam: Present: soft. Absent: distended, tenderness, guarding, rebound, mass Extremities exam: Present: normal inspection, normal capillary refill. Absent: pedal edema, calf tenderness Back exam: Present: normal inspection. Absent: vertebral tenderness Neurological exam: Present: alert Skin exam: Present: warm, dry, intact, normal color. Absent: rash Course Vital Signs 08/08/22 08/08/22 08/08/22 03:46 04:55 05:09 Temperature 98.8 F Pulse Rate 60 61 60 Respiratory 15 15 15 Rate Blood Pressure 132/75 O2 Sat by Pulse 95 98 Oximetry 08/08/22 08/08/22 06:13 07:32 Temperature Pulse Rate 59 L 58 L Respiratory 16 18 Rate Blood Pressure 132/75 119/59 O2 Sat by Pulse 98 96 Oximetry Medical Decision Making - Lab Data Result diagrams: 08/08/22 04:55 08/08/22 04:55 Lab Results 08/08/22 08/08/22 08/08/22 Range/Units 04:55 04:55 04:55 WBC 6.4 (3.8-10.6) k/uL RBC 3.87 (3.80-5.40) m/uL Hgb 11.9 D (11.4-16.0) gm/dL Hct 36.9 (34.0-46.0) % MCV 95.4 (80.0-100.0) fL MCH 30.7 (25.0-35.0) pg MCHC 32.2 (31.0-37.0) g/dL RDW 12.8 (11.5-15.5) % Plt Count 212 (150-450) k/uL MPV 7.0 Neutrophils % 64 % Lymphocytes % 26 % Monocytes % 6 % Eosinophils % 1 % Basophils % 0 % Neutrophils # 4.1 (1.3-7.7) k/uL Lymphocytes # 1.6 (1.0-4.8) k/uL Monocytes # 0.4 (0-1.0) k/uL Eosinophils # 0.1 (0-0.7) k/uL Basophils # 0.0 (0-0.2) k/uL PT 10.3 (9.0-12.0) sec INR 1.0 (<1.2) APTT 22.9 (22.0-30.0) sec VBG pH (7.31-7.41) VBG pCO2 (37-51) mmHg VBG HCO3 (24-28) mmol/L Sodium 136 L (137-145) mmol/L Potassium 3.8 (3.5-5.1) mmol/L Chloride 102 (98-107) mmol/L Carbon Dioxide 24 (22-30) mmol/L Anion Gap 10 mmol/L BUN 23 H (7-17) mg/dL Creatinine 0.62 (0.52-1.04) mg/dL Est GFR (CKD-EPI)AfAm >90 (>60 ml/min/1.73 sqM) Est GFR (CKD-EPI)NonAf 90 (>60 ml/min/1.73 sqM) Glucose 152 H (74-99) mg/dL Plasma Lactic Acid Fish (0.7-2.0) mmol/L Calcium 8.5 (8.4-10.2) mg/dL Total Bilirubin 0.4 (0.2-1.3) mg/dL AST 18 (14-36) U/L ALT 19 (4-34) U/L Alkaline Phosphatase 100 (38-126) U/L Troponin I (0.000-0.034) ng/mL Total Protein 6.0 L (6.3-8.2) g/dL Albumin 3.3 L (3.5-5.0) g/dL Urine Color Urine Appearance (Clear) Urine pH (5.0-8.0) Ur Specific [place] (1.001-1.035) Urine Protein (Negative) Urine Glucose (UA) (Negative) Urine Ketones (Negative) Urine Blood (Negative) Urine Nitrite (Negative) Urine Bilirubin (Negative) Urine Urobilinogen (<2.0) mg/dL Ur Leukocyte Esterase (Negative) Urine RBC (0-5) /hpf Urine WBC (0-5) /hpf Ur Squamous Epith Cells (0-4) /hpf Urine Bacteria (None) /hpf 08/08/22 08/08/22 08/08/22 Range/Units 04:55 04:55 04:55 WBC (3.8-10.6) k/uL RBC (3.80-5.40) m/uL Hgb (11.4-16.0) gm/dL Hct (34.0-46.0) % MCV (80.0-100.0) fL MCH (25.0-35.0) pg MCHC (31.0-37.0) g/dL RDW (11.5-15.5) % Plt Count (150-450) k/uL MPV Neutrophils % % Lymphocytes % % Monocytes % % Eosinophils % % Basophils % % Neutrophils # (1.3-7.7) k/uL Lymphocytes # (1.0-4.8) k/uL Monocytes # (0-1.0) k/uL Eosinophils # (0-0.7) k/uL Basophils # (0-0.2) k/uL PT (9.0-12.0) sec INR (<1.2) APTT (22.0-30.0) sec VBG pH 7.44 H (7.31-7.41) VBG pCO2 35 L (37-51) mmHg VBG HCO3 23 L (24-28) mmol/L Sodium (137-145) mmol/L Potassium (3.5-5.1) mmol/L Chloride (98-107) mmol/L Carbon Dioxide (22-30) mmol/L Anion Gap mmol/L BUN (7-17) mg/dL Creatinine (0.52-1.04) mg/dL Est GFR (CKD-EPI)AfAm (>60 ml/min/1.73 sqM) Est GFR (CKD-EPI)NonAf (>60 ml/min/1.73 sqM) Glucose (74-99) mg/dL Plasma Lactic Acid Fish 1.1 (0.7-2.0) mmol/L Calcium (8.4-10.2) mg/dL Total Bilirubin (0.2-1.3) mg/dL AST (14-36) U/L ALT (4-34) U/L Alkaline Phosphatase (38-126) U/L Troponin I <0.012 (0.000-0.034) ng/mL Total Protein (6.3-8.2) g/dL Albumin (3.5-5.0) g/dL Urine Color Urine Appearance (Clear) Urine pH (5.0-8.0) Ur Specific [place] (1.001-1.035) Urine Protein (Negative) Urine Glucose (UA) (Negative) Urine Ketones (Negative) Urine Blood (Negative) Urine Nitrite (Negative) Urine Bilirubin (Negative) Urine Urobilinogen (<2.0) mg/dL Ur Leukocyte Esterase (Negative) Urine RBC (0-5) /hpf Urine WBC (0-5) /hpf Ur Squamous Epith Cells (0-4) /hpf Urine Bacteria (None) /hpf 08/08/22 Range/Units 07:49 WBC (3.8-10.6) k/uL RBC (3.80-5.40) m/uL Hgb (11.4-16.0) gm/dL Hct (34.0-46.0) % MCV (80.0-100.0) fL MCH (25.0-35.0) pg MCHC (31.0-37.0) g/dL RDW (11.5-15.5) % Plt Count (150-450) k/uL MPV Neutrophils % % Lymphocytes % % Monocytes % % Eosinophils % % Basophils % % Neutrophils # (1.3-7.7) k/uL Lymphocytes # (1.0-4.8) k/uL Monocytes # (0-1.0) k/uL Eosinophils # (0-0.7) k/uL Basophils # (0-0.2) k/uL PT (9.0-12.0) sec INR (<1.2) APTT (22.0-30.0) sec VBG pH (7.31-7.41) VBG pCO2 (37-51) mmHg VBG HCO3 (24-28) mmol/L Sodium (137-145) mmol/L Potassium (3.5-5.1) mmol/L Chloride (98-107) mmol/L Carbon Dioxide (22-30) mmol/L Anion Gap mmol/L BUN (7-17) mg/dL Creatinine (0.52-1.04) mg/dL Est GFR (CKD-EPI)AfAm (>60 ml/min/1.73 sqM) Est GFR (CKD-EPI)NonAf (>60 ml/min/1.73 sqM) Glucose (74-99) mg/dL Plasma Lactic Acid Fihs (0.7-2.0) mmol/L Calcium (8.4-10.2) mg/dL Total Bilirubin (0.2-1.3) mg/dL AST (14-36) U/L ALT (4-34) U/L Alkaline Phosphatase (38-126) U/L Troponin I (0.000-0.034) ng/mL Total Protein (6.3-8.2) g/dL Albumin (3.5-5.0) g/dL Urine Color Yellow Urine Appearance Cloudy H (Clear) Urine pH 6.0 (5.0-8.0) Ur Specific [place] 1.023 (1.001-1.035) Urine Protein Trace H (Negative) Urine Glucose (UA) Negative (Negative) Urine Ketones Negative (Negative) Urine Blood Negative (Negative) Urine Nitrite Positive H (Negative) Urine Bilirubin Negative (Negative) Urine Urobilinogen <2.0 (<2.0) mg/dL Ur Leukocyte Esterase Large H (Negative) Urine RBC 1 (0-5) /hpf Urine WBC 90 H (0-5) /hpf Ur Squamous Epith Cells 8 H (0-4) /hpf Urine Bacteria Many H (None) /hpf - EKG Data -: EKG Interpreted by Me EKG shows normal: sinus rhythm, axis, intervals (Normal), QRS complexes (Normal) Rate: normal (Normal rate 62 bpm) Disposition Clinical Impression: UTI (urinary tract infection), Altered mental status Disposition: ADMITTED IP TO THIS HOSP Condition: Fair Is patient prescribed a controlled substance at d/c from ED?: No Referrals: Tiarra Joel MD [Primary Care Provider] - 1-2 days
--- NOTE | 2022-08-08 07:39 | XR ---
EXAMINATION TYPE: XR chest 1V portable DATE OF EXAM: 08/08/2022 6:29 AM COMPARISON: Chest radiographs from 06/16/2022 TECHNIQUE: XR chest 1V portable Frontal view of the chest. CLINICAL INDICATION:Female, 72 years old with history of altered mental status; FINDINGS: Lungs/Pleura: There is no evidence of pleural effusion, focal consolidation, or pneumothorax. Pulmonary vascularity: Unremarkable. Heart/mediastinum: Cardiomediastinal silhouette is enlarged and stable. Musculoskeletal: No acute osseous pathology. IMPRESSION: Low lung volumes with a generalized hazy appearance which could represent atelectasis versus pulmonar y edema correlate with serum BNP.
[2022-08-08] MEDS ORDERED: FUROSEMIDE 10 MG/ML 4 ML VIAL IV STA (08:10)
[2022-08-08 08:17] LABS: Appearance,Urine Cloudy (Clear); Bacteria,Urine Many /hpf; Bilirubin,Urine Negative (Negative); Blood,Urine Negative (Negative); Color,Urine Yellow; Glucose,Urine (UA) Negative (Negative); Ketones,Urine Negative (Negative); Leukocyte Esterase,Urine Large (Negative); Nitrite,Urine Positive (Negative); Protein,Urine Trace (Negative); RBC,Urine 1 /hpf (0-5); Specific Gravity,Urine 1.023 (1.001-1.035); Squamous Epithelial Cell,Urine 8 /hpf (0-4); Urobilinogen,Urine <2.0 mg/dL (<2.0); WBC,Urine 90 /hpf (0-5)
[2022-08-08] MEDS ORDERED: NALOXONE 0.4 MG/ML 1 ML VIAL IV PRN (08:29)
[2022-08-08] MEDS ORDERED: MAG HYDROX/AL HYDROX/SIMETH 30 ML CUP PO PRN (08:29)
[2022-08-08] MEDS ORDERED: ACETAMINOPHEN TAB 325 MG TAB PO PRN ×2 (08:29→21:39)
[2022-08-08] MEDS ORDERED: FAMOTIDINE 20 MG TAB PO SCH (09:00)
[2022-08-08] MEDS: ERTAPENEM 1 GM in SODIUM CHLORIDE 0.9% 50 ML IVPB SCH (10:38)
[2022-08-08] MEDS ORDERED: IPRATROPIUM-ALBUTEROL 3 ML NEB INHALATION PRN (10:48)
[2022-08-08] MEDS: IPRATROPIUM-ALBUTEROL 3 ML NEB INHALATION SCH ×2 (11:15→19:52)
--- NOTE | 2022-08-08 11:29 | HP ---
HISTORY AND PHYSICAL CHIEF COMPLAINT: Change in mental status. HISTORY OF PRESENT ILLNESS: This is a 72-year-old woman with a past medical history of multiple lower extremity DVTs, diabetes, and COPD, who is in [facility] [place], was noted to have change in mental status. The patient was taken to [facility]. The patient is currently confused and VBG showed pH of 7.44. UA showed a high suspicion for UTI. There is no history of fever, rigors, or chills at this time. PAST MEDICAL HISTORY: Reviewed include diabetes mellitus and DVT. HOME MEDICATIONS: Reviewed include Requip, doses and rest of medications noted not confirmed yet. ALLERGIES: Reviewed include erythromycin. Rest of the allergies noted. FAMILY HISTORY: Could not be taken because of confusion. SOCIAL HISTORY: Could not be taken because of confusion. REVIEW OF SYSTEMS: Could not be taken because of confusion. PHYSICAL EXAMINATION: VITAL SIGNS: Pulse 53, blood pressure 130/77, respirations 18. HEENT: Conjunctivae normal. NECK: No jugular venous distention. CARDIOVASCULAR: S1 and S2. RESPIRATION: Clear to auscultation. ABDOMEN: Soft. LEGS: No edema. NERVOUS SYSTEM: Diffusely weak. The patient is not fully cooperative with exam. SKIN: No rash. JOINTS: No active deforming arthropathy. LABORATORY DATA: Reviewed. Chest x-ray reviewed personally showed low volume, possibly atelectasis. ASSESSMENT: 1. Change in mental status, possibly metabolic encephalopathy, possible acute urinary tract infection, present on admission, possible extended spectrum beta lactamase organism. 2. Chronic obstructive pulmonary disease. 3. History of deep venous thrombosis. 4. Degenerative joint disease. 5. History of methicillin-resistant Staphylococcus aureus. 6. Multiple medical issues. RECOMMENDATIONS AND DISCUSSION: This 72-year-old woman presented with multiple complex medical issues. At this time, I recommend to continue the current medications and symptomatic treatment. I would initiate empiric antibiotics. I will follow the cultures. Otherwise, Infectious Disease evaluation. The patient was started on ertapenem and the patient had ESBL E coli previously. Prognosis is guarded. Further recommendations to follow. I would also order a CT scan of the brain to complete the workup to rule out any possibility of acute stroke. This patient will definitely need more than two-midnight stay hospitalization. Recommend full admit. MMODL / IJN: [id number] /
--- NOTE | 2022-08-08 13:31 | CT ---
EXAMINATION TYPE: CT brain wo con CT DLP: 1098.80 mGycm, Automated exposure control for dose reduction was used. DATE OF EXAM: 08/08/2022 1:09 PM COMPARISON: 06/16/2022. CLINICAL INDICATION:Female, 72 years old with history of stroke, Stroke TECHNIQUE: Brain: Axial CT images of the brain were obtained with coronal and sagittal reformats created and rev iewed. Contrast used: None. Oral contrast used: None. FINDINGS: Brain: Extra-axial spaces: No abnormal extra-axial fluid collections. Ventricular system: Dilatation in proportion to cerebral atrophy. Cerebral parenchyma: Cerebral atrophy. No acute intraparenchymal hemorrhage or mass effect. The rehman -white junction is well differentiated. Cerebellum: Unremarkable. Mass effect: No evidence of midline shift. Intracranial vasculature: unremarkable Soft tissues: Normal. Calvarium/osseous structures: No depressed skull fracture. Paranasal sinuses and mastoid air cells: Mild scattered paranasal sinus disease. Visualized orbits: Orbital contents are intact. IMPRESSION: 1. No acute intracranial process. 2. Nonspecific white matter changes, likely secondary to chronic small vessel ischemic disease.
--- NOTE | 2022-08-08 19:53 | P.CONS ---
History of Present Illness - Reason for Consult Consult date: 08/08/22 Possible UTI Requesting physician: Serene Cui - Chief Complaint Mental status changes x one day - History of Present Illness Patient is a 72-year-old female with a past medical his significant for diabetes mellitus COPD DVT hypertension osteoarthritis history of recurrent urinary tract infection previous history of MRSA foot infection patient has been sent to the ER for evaluation of mental status changes patient was noted to be elevated more than usual and was concerning for possible UTI there is no clear history of any fever or any chills patient on presented to the hospital was disoriented denies any headache or URI symptoms she is breathing comfortably on room air no chest pain shortness of the cough and abdominal pain no diarrhea some vague urinary symptoms patient visited hospital was afebrile white count was normal kidney function was normal there was also normal she did have positive UA with large leukocyte esterase 90 WBC patient did have chest x-ray no acute pneumonia patient was started on Rocephin infectious disease was consulted for further management of antibiotic therapy Review of Systems Positive points has been mentioned in HPI complete review could not be obtained because of his underlying mental status Past Medical History Past Medical History: Asthma, COPD, Diabetes Mellitus, Deep Vein Thrombosis (DVT), Eye Disorder, GERD/Reflux, Hypertension, Osteoarthritis (OA), Pneumonia, Skin Disorder, Thyroid Disorder Additional Past Medical History / Comment(s): MRSA infection rt foot 5th digit and side of rt foot, Hx GLAUCOMA, TMJ, RENAL CALCULI, UTIs, DVT X 5 ( STATES CAUSED BY CONTROL PILLS AND HORMONES),KIANA, HAND TREMORS History of Any Multi-Drug Resistant Organisms: ESBL, MRSA Year Discovered:: 01/09/22 ESBL; 06/20/21 MRSA MDRO Source:: Urine-ESBL; Foot-MRSA Past Surgical History: Back Surgery, Bladder Surgery, Breast Surgery, Heart Catheterization, Hysterectomy, Joint Replacement, Orthopedic Surgery, Tonsillectomy Additional Past Surgical History / Comment(s): 04/17/16 arthrotomy removal olecranon spur and loose bodies R elbow. , JULIANNE TOTAL HIP, LAPAROSCOPY, BREAST BIOPSY, JULIANNE CARPAL TUNNEL, JULIANNE KNEE REPLACEMENT, JULIANNE ROTATOR CUFF REPAIR, LEFT FOOT SURG, Right foot bursa removal, Past Anesthesia/Blood Transfusion Reactions: Postoperative Nausea & Vomiting ( PONV) Past Psychological History: No Psychological Hx Reported Smoking Status: Unknown if ever smoked Past Alcohol Use History: Rare Past Drug Use History: None Reported - Past Family History Mother Family Medical History: Hyperlipidemia, Hypertension Additional Family Medical History / Comment(s): Mother at age 96. Father Family Medical History: Osteoarthritis (OA) Sister(s) Family Medical History: Pulmonary Embolus Medications and Allergies Home Medications Medication Instructions Recorded Confirmed Type Levothyroxine Sodium [Synthroid] 150 mcg PO SUTUTHSA@59910/02/13 08/08/22 History Levothyroxine Sodium [Synthroid] 175 mcg PO MOWEFR@59910/02/13 08/08/22 History Nitroglycerin Sl Tabs [Nitrostat] 0.4 mg SL Q5M PRN 10/02/13 08/08/22 History Famotidine [Pepcid] 20 mg PO HS@209905/05/21 08/08/22 History Multivitamins, Thera [Multivitamin 1 tab PO DAILY@89905/05/21 08/08/22 History (formulary)] Acetaminophen Tab [Tylenol] 650 mg PO Q6HR PRN 06/10/21 08/08/22 History Fluticasone Propionate [Flovent 1 puff INHALATION RT-BID@09,209906/10/21 08/08/22 History Hfa 110 mcg] Topiramate [Topamax] 25 mg PO HS@209906/10/21 08/08/22 History DULoxetine HCL [Cymbalta] 30 mg PO DAILY@00 09/12/21 08/08/22 History Fluticasone Nasal [place] [Flonase 1 spray EA NOSTRIL BID@09,209909/12/21 08/08/22 History Nasal [place]] Apixaban [Eliquis] 2.5 mg PO BID@0900,209906/16/22 08/08/22 History Calcium Carbonate [Tums] 1,000 mg PO Q6H PRN 06/16/22 08/08/22 History Cranberry 450mg Tab 450 mg PO BID@0900,209906/16/22 08/08/22 History DULoxetine HCL [Cymbalta] 60 mg PO HS@209906/16/22 08/08/22 History Diclofenac Sodium [Voltaren 2 gm TOPICAL Q6H PRN 06/16/22 08/08/22 History Arthritis Pain 1% Gel] Dicyclomine [Bentyl] 10 mg PO TID@0900,1300,2100 06/16/22 08/08/22 History L.acidoph,Paracasei, B.lactis 2 cap PO DAILY@0900 06/16/22 08/08/22 History [Probiotic] Melatonin 10 mg PO HS PRN 06/16/22 08/08/22 History Methenamine Hippurate 1 gm PO BID@0900,209906/16/22 08/08/22 History Psyllium Husk 100% [Metamucil 6 gm PO HS@209906/16/22 08/08/22 History Packet] rOPINIRole HCL [Requip] 0.5 mg PO BID@0900,209906/16/22 08/08/22 History HYDROcodone/APAP 5-325MG [[place] 1 tab PO Q8H PRN #4 tab 06/19/22 08/08/22 Rx 5-325] Losartan [Cozaar] 25 mg PO DAILY tab 06/19/22 08/08/22 Rx ALPRAZolam [Xanax] 0.25 mg PO BID@0900,2100 08/08/22 08/08/22 History Cyclobenzaprine [Flexeril] 5 mg PO Q12H PRN 08/08/22 08/08/22 History Insulin Lispro [humaLOG Kwikpen] 3 unit SQ AC-TID 08/08/22 08/08/22 History Insulin Lispro [humaLOG Kwikpen] See Protocol SQ AC-TID 08/08/22 08/08/22 History Linagliptin [Tradjenta] 5 mg PO DAILY@0900 08/08/22 08/08/22 History Omeprazole 20 mg PO DAILY@0600 08/08/22 08/08/22 History Ondansetron [Zofran] 4 mg PO Q6H PRN 08/08/22 08/08/22 History Allergies Allergy/AdvReac Type Severity Reaction Status Date / Time enoxaparin sodium Allergy Unknown RED LUMPS Verified 08/08/22 12:49 [From Lovenox] ON ABDOMEN AT INJECTION SITES erythromycin base Allergy Unknown Rash/Hives Verified 08/08/22 12:49 latex Allergy Unknown Itching Verified 08/08/22 12:49 adhesive Allergy Rash/Hives Verified 08/08/22 12:49 morphine Allergy Rash/Hives Verified 08/08/22 12:49 pioglitazone [From Actos] Allergy Swelling Verified 08/08/22 12:49 Sulfa (Sulfonamide Allergy Anaphylaxis Verified 08/08/22 12:49 Antibiotics) tetracycline [Tetracycline] Allergy Rash/Hives Verified 08/08/22 12:49 metformin AdvReac Diarrhea Verified 08/08/22 12:49 Physical Exam Vitals: Vital Signs Temp Pulse Pulse Resp BP BP Pulse Ox 08/08/22 09:53 97.5 F L 53 L 18 132/77 98 08/08/22 09:31 98.7 F 60 18 117/66 96 08/08/22 07:32 58 L 18 119/59 96 08/08/22 06:13 59 L 16 132/75 98 08/08/22 05:09 60 15 98 08/08/22 04:55 61 15 08/08/22 03:46 98.8 F 60 15 132/75 95 Intake and Output 08/07/22 08/08/22 08/08/22 22:59 06:59 14:59 Other: Weight 95.254 kg GENERAL DESCRIPTION: Elderly female lying in bed, no distress. No tachypnea or accessory muscle of respiration use. HEENT: Shows Pallor , no scleral icterus. Oral mucous membrane is dry. NECK: Trachea central, no thyromegaly. LUNGS: Unlabored breathing. Clear to auscultation anteriorly. No wheeze or crackle. HEART: S1, S2, regular rate and rhythm. No loud murmur ABDOMEN: Soft, no tenderness , guarding or rigidity, no organomegaly EXTREMITIES: No edema of feet. SKIN: No rash, no masses palpable. NEUROLOGICAL: The patient is pleasantly confused orientation could not be determined Results CBC & Chem 7: 08/10/22 03:28 08/10/22 03:28 Labs: Abnormal Lab Results - Last 24 Hours (Table) 08/08/22 08/08/22 08/08/22 Range/Units 04:55 04:55 07:49 VBG pH 7.44 H (7.31-7.41) VBG pCO2 35 L (37-51) mmHg VBG HCO3 23 L (24-28) mmol/L Sodium 136 L (137-145) mmol/L BUN 23 H (7-17) mg/dL Glucose 152 H (74-99) mg/dL Total Protein 6.0 L (6.3-8.2) g/dL Albumin 3.3 L (3.5-5.0) g/dL Urine Appearance Cloudy H (Clear) Urine Protein Trace H (Negative) Urine Nitrite Positive H (Negative) Ur Leukocyte Esterase Large H (Negative) Urine WBC 90 H (0-5) /hpf Ur Squamous Epith Cells 8 H (0-4) /hpf Urine Bacteria Many H (None) /hpf Assessment and Plan (1) UTI (urinary tract infection) Current Visit: Yes Status: Acute Code(s): N39.0 - URINARY TRACT INFECTION, SITE NOT SPECIFIED SNOMED Code(s): 09231686 Plan: 1patient was in the hospital with mental status changes likely multifactorial likely component of her UTI in this patient who did have history of recurrent U TI did have a positive UA as well as urine culture positive for ESBL E. coli 2-discontinue Rocephin 3-start the patient on Invanz 1 g daily while waiting for the culture to finalize 4-gentle IV fluid We will follow on clinical condition and cultures to further adjust medication if needed Thank you for this consultation we will follow the patient along with you Time with Patient: Greater than 30
[2022-08-08] MEDS ORDERED: HYDROcodone/APAP 5-325MG 1 EACH TAB PO PRN (21:39)
[2022-08-08] MEDS ORDERED: ONDANSETRON 4 MG TAB PO PRN (21:39)
[2022-08-08] MEDS ORDERED: DICLOFENAC SODIUM GEL 100 GM TUBE TOPICAL PRN (21:39)
[2022-08-08] MEDS ORDERED: NITROGLYCERIN SL TABS 0.4 MG TAB SUBLINGUAL PRN (21:39)
[2022-08-08] MEDS ORDERED: CYCLOBENZAPRINE 5 MG TAB PO PRN (21:39)
[2022-08-08] MEDS ORDERED: MELATONIN 5 MG TABLET PO PRN (21:39)
[2022-08-08] MEDS ORDERED: CALCIUM CARBONATE 500 MG CHEWABLE PO PRN (21:39)
[2022-08-08] MEDS ORDERED: DEXTROSE 50% SYRINGE 50 ML IVP PRN (21:43)
[2022-08-09] MEDS: LEVOTHYROXINE 75 MCG TAB PO SCH (06:24)
[2022-08-09] MEDS: PANTOPRAZOLE 40 MG TABLET PO SCH (06:24)
[2022-08-09 07:03] LABS: African American GFR (CKD) >90 (>60 ml/min/1.73 sqM); Anion Gap 7 mmol/L; Blood Urea Nitrogen 18 mg/dL (7-17); Calcium 8.8 mg/dL (8.4-10.2); Carbon Dioxide 25 mmol/L (22-30); Chloride 105 mmol/L (98-107); Glucose 145 mg/dL (74-99); Non-African American GFR(CKD) 88 (>60 ml/min/1.73 sqM); Sodium 137 mmol/L (137-145)
[2022-08-09 07:09] LABS: Potassium 4.4 mmol/L (3.5-5.1)
[2022-08-09] MEDS ORDERED: NON FORMULARY DRUG (Insulin Lispro [Humalog Kwikpen] 100 UNIT/ML Insuln.Pen) SQ SCH (07:30)
[2022-08-09 07:31] LABS: Glucose,Whole Blood 167 mg/dL (70-110)
[2022-08-09] MEDS: INSULIN ASPART (NovoLOG) 100 UNIT/ML VIAL SQ SCH ×6 (07:46→17:58)
[2022-08-09] MEDS: NON FORMULARY DRUG (Methenamine Hippurate [Methenamine Hippurate] 1 GM Tablet) PO SCH ×2 (07:53→19:22)
[2022-08-09] MEDS: LINAGLIPTIN 5 MG TABLET PO SCH (07:57)
[2022-08-09] MEDS: FLUTICASONE 50MCG/SPRAY NASAL 16GM EA NOSTRIL SCH ×2 (07:57→19:44)
[2022-08-09] MEDS: MULTIVITAMINS, THERA 1 EACH TAB PO SCH (07:57)
[2022-08-09] MEDS: ERTAPENEM 1 GM in SODIUM CHLORIDE 0.9% 50 ML IVPB SCH (07:57)
[2022-08-09] MEDS: LACTOBACILLUS ACIDOPH & BULGAR 1 EACH PACKET PO SCH (07:57)
[2022-08-09] MEDS: LOSARTAN 25 MG TAB PO SCH (07:57)
[2022-08-09] MEDS: APIXABAN 2.5 MG TABLET PO SCH ×2 (07:57→19:44)
[2022-08-09] MEDS: DULoxetine HCL 30 MG CAPSULE.DR PO SCH (07:57)
[2022-08-09] MEDS: ALPRAZolam 0.25 MG TAB PO SCH ×2 (07:57→19:44)
[2022-08-09] MEDS: DICYCLOMINE 10 MG CAP PO SCH ×3 (07:58→19:44)
[2022-08-09 08:09] LABS: Basophils % (A) 0 %; Eosinophils # (A) 0.1 k/uL (0-0.7); Eosinophils % (A) 1 %; HCT 39.1 % (34.0-46.0); Lymphocytes # (A) 1.8 k/uL (1.0-4.8); Lymphocytes % (A) 29 %; MCH 30.5 pg (25.0-35.0); MCHC 33.1 g/dL (31.0-37.0); MCV 91.9 fL (80.0-100.0); Mean Platelet Volume 7.1; Monocytes # (A) 0.4 k/uL (0-1.0); Monocytes % (A) 6 %; Neutrophils # (A) 3.7 k/uL (1.3-7.7); Neutrophils % (A) 61 %; Platelet Count 204 k/uL (150-450); RBC 4.26 m/uL (3.80-5.40); WBC 6.1 k/uL (3.8-10.6)
[2022-08-09] MEDS: FLUTICASONE 110 MCG INHALER INHALATION SCH ×2 (08:42→18:27)
[2022-08-09] MEDS: IPRATROPIUM-ALBUTEROL 3 ML NEB INHALATION SCH ×3 (08:42→18:27)
[2022-08-09] MEDS ORDERED: CRANBERRY 450 MG PO SCH (09:00)
[2022-08-09 12:07] LABS: Glucose,Whole Blood 260 mg/dL (70-110)
--- NOTE | 2022-08-09 14:45 | PN ---
PROGRESS NOTE DATE OF SERVICE: 08/09/2022 SUBJECTIVE: This 72-year-old woman, who was admitted with change in mental status, possibly has acute UTI. The CT of the brain did not show any acute stroke. Cultures are pending at this time. OBJECTIVE: VITAL SIGNS: Pulse is 60, blood pressure 111/69, respirations 16. CHEST: Clear to auscultation. CARDIOVASCULAR: S1 and S2. ABDOMEN: Soft. NERVOUS SYSTEM: Diffusely weak. Tremors present. LABORATORY DATA: Reviewed. ASSESSMENT: 1. Change in mental status, possibly acute metabolic encephalopathy secondary to urinary tract infection with sepsis. The patient had previously extended spectrum beta lactamase organisms. 2. Chronic obstructive pulmonary disease. 3. History of deep venous thrombosis. 4. Degenerative joint disease. 5. History of methicillin-resistant Staphylococcus aureus. 6. Multiple medical issues. RECOMMENDATIONS: Recommended to continue current medical management. Continue symptomatic treatment. Otherwise, I would recommend repeat labs in the morning. Closely follow with Infectious Disease. Further recommendations to follow. MMODL / IJN: [id number] /
--- NOTE | 2022-08-09 15:52 | P.PN ---
Subjective Progress Note Date: 08/09/22 Principal diagnosis: Urinary tract infection Patient is a 72-year-old female with multiple comorbidities history of recurrent UTI presented to the hospital mental status changes did have a positive UA concerning for another episode of urinary tract infection. On today's evaluation that is 08/09/2022 patient is afebrile patient is more awake and alert has been complaining of unable to have a bowel movement and some discomfort nausea but no vomiting has been reported by the nursing staff Objective - Vital Signs Vital signs: Vital Signs Temp 97.7 F 08/09/22 13:54 Pulse 67 08/09/22 13:54 Resp 16 08/09/22 13:54 BP 126/76 08/09/22 13:54 Pulse Ox 97 08/09/22 13:54 FiO2 Intake & Output 08/08/22 08/09/22 08/09/22 18:59 06:59 18:59 Intake Total 118 Output Total 800 600 225 Balance -800 -600 -107 Weight 95.254 kg Intake: Oral 118 Output: Urine 800 600 225 Other: Voiding Method External Catheter External Catheter External Catheter # Voids 1 # Bowel Movements 0 - Exam An elderly female up in a chair in no distress - Labs CBC & Chem 7: 08/09/22 07:42 08/09/22 05:23 Labs: Abnormal Lab Results - Last 24 Hours (Table) 08/09/22 08/09/22 08/09/22 Range/Units 05: 07:29 12:05 BUN 18 H (7-17) mg/dL Glucose 145 H (74-99) mg/dL POC Glucose (mg/dL) 167 H 260 H (70-110) mg/dL Microbiology - Last 24 Hours (Table) 08/08/22 09:53 Urine Culture - Preliminary Urine,Clean Catch Assessment and Plan (1) UTI (urinary tract infection) Current Visit: Yes Status: Acute Code(s): N39.0 - URINARY TRACT INFECTION, SITE NOT SPECIFIED SNOMED Code(s): 84418755 Plan: 1patient was in the hospital with mental status changes likely multifactorial likely component of her UTI in this patient who did have history of recurrent UTI did have a positive UA as well as urine culture positive for ESBL E. coli 2Patient to continue with Invanz 1 g daily while waiting for the culture to finalize Time with Patient: Less than 30
[2022-08-09 17:33] LABS: Glucose,Whole Blood 197 mg/dL (70-110)
[2022-08-09] MEDS: DULoxetine HCL 60 MG CAPSULE.DR PO SCH (19:44)
[2022-08-09] MEDS: LACTULOSE 20 GM/30 ML CUP PO SCH (19:44)
[2022-08-09] MEDS: TOPIRAMATE 25 MG TAB PO SCH (19:44)
[2022-08-09] MEDS: PSYLLIUM HUSK 100% 6 GM PACKET PO SCH (19:44)
[2022-08-09] MEDS: FAMOTIDINE 20 MG TAB PO SCH (19:44)
[2022-08-10 05:58] LABS: Glucose,Whole Blood 237 mg/dL (70-110)
[2022-08-10] MEDS: INSULIN ASPART (NovoLOG) 100 UNIT/ML VIAL SQ SCH ×6 (06:15→17:51)
[2022-08-10] MEDS: PANTOPRAZOLE 40 MG TABLET PO SCH (06:15)
[2022-08-10] MEDS ORDERED: LEVOTHYROXINE 88 MCG TAB PO SCH (06:30)
[2022-08-10] MEDS: IPRATROPIUM-ALBUTEROL 3 ML NEB INHALATION SCH ×3 (08:52→20:13)
[2022-08-10] MEDS: FLUTICASONE 110 MCG INHALER INHALATION SCH ×2 (08:53→20:13)
[2022-08-10] MEDS: DULoxetine HCL 30 MG CAPSULE.DR PO SCH (08:55)
[2022-08-10] MEDS: ALPRAZolam 0.25 MG TAB PO SCH ×2 (08:55→20:42)
[2022-08-10] MEDS: APIXABAN 2.5 MG TABLET PO SCH ×2 (08:55→20:42)
[2022-08-10] MEDS: MULTIVITAMINS, THERA 1 EACH TAB PO SCH (08:55)
[2022-08-10] MEDS: FLUTICASONE 50MCG/SPRAY NASAL 16GM EA NOSTRIL SCH ×2 (08:55→20:42)
[2022-08-10] MEDS: LOSARTAN 25 MG TAB PO SCH (08:55)
[2022-08-10] MEDS: LACTOBACILLUS ACIDOPH & BULGAR 1 EACH PACKET PO SCH (08:56)
[2022-08-10] MEDS: LINAGLIPTIN 5 MG TABLET PO SCH (08:56)
[2022-08-10] MEDS: NON FORMULARY DRUG (Methenamine Hippurate [Methenamine Hippurate] 1 GM Tablet) PO SCH ×2 (08:57→20:37)
[2022-08-10 08:58] LABS: Basophils # (A) 0.03 X 10*3/uL (0.00-0.10); Basophils % (A) 0.4 %; Eosinophils # (A) 0.06 X 10*3/uL (0.04-0.35); Eosinophils % (A) 0.8 %; HCT 39.1 % (37.2-46.3); HGB 12.3 g/dL (12.0-15.0); Immature Grans, Automated 0.3 %; Lymphocytes # (A) 2.03 X 10*3/uL (0.90-5.00); Lymphocytes % (A) 28.8 %; MCH 29.9 pg (27.0-32.0); MCHC 31.5 g/dL (32.0-37.0); MCV 94.9 fL (80.0-97.0); Mean Platelet Volume 9.1 fL (9.5-12.2); Monocytes # (A) 0.59 X 10*3/uL (0.20-1.00); Monocytes % (A) 8.4 %; NRBC Per 100 WBC 0 /100 WBCS (0.0-0.0); Neutrophils # (A) 4.33 X 10*3/uL (1.80-7.70); Neutrophils % (A) 61.3 %; Platelet Count 211 X 10*3/uL (140-440); RBC 4.12 X 10*6/uL (4.10-5.20); RDW 12.2 % (11.5-14.5); WBC 7.06 X 10*3/uL (4.50-10.00)
[2022-08-10] MEDS: LACTULOSE 20 GM/30 ML CUP PO SCH ×2 (09:00→20:43)
[2022-08-10] MEDS: ERTAPENEM 1 GM in SODIUM CHLORIDE 0.9% 50 ML IVPB SCH (09:00)
[2022-08-10 09:20] LABS: African American GFR (CKD) 99.6 (60.0-200.0); Anion Gap 10.6 mmol/L (10.00-18.00); BUN/Creat Ratio 17.86 Ratio (12.00-20.00); Blood Urea Nitrogen 12.5 mg/dL (9.0-27.0); Calcium 9.1 mg/dL (8.7-10.3); Carbon Dioxide 25.4 mmol/L (20.0-27.5); Potassium 4.1 mmol/L (3.5-5.5)
--- NOTE | 2022-08-10 12:00 | P.PN ---
Subjective Progress Note Date: 08/10/22 Principal diagnosis: Urinary tract infection Patient is a 72-year-old female with multiple comorbidities history of recurrent UTI presented to the hospital mental status changes did have a positive UA concerning for another episode of urinary tract infection. On today's evaluation that is 08/10/2022 patient remains to be afebrile patient has been complaining about the antibiotics making her not feeling good, patient is breathing comfortably on room air no chest pain shortness of breath or cough no abdominal pain or diarrhea Objective - Vital Signs Vital signs: Vital Signs Temp 98.3 F 08/10/22 07:00 Pulse 78 08/10/22 08:53 Resp 16 08/10/22 07:00 BP 105/60 08/10/22 07:00 Pulse Ox 98 08/10/22 08:53 FiO2 21 08/10/22 08:53 Intake & Output 08/09/22 08/10/22 08/10/22 18:59 06:59 18:59 Intake Total 118 Output Total 225 500 Balance -107 -500 Intake: Oral 118 Output: Urine 225 500 Other: Voiding Method External Catheter External Catheter External Catheter # Voids 1 3 # Bowel Movements 0 1 - Exam GENERAL DESCRIPTION: An elderly female up in the chair in no distress RESPIRATORY SYSTEM: Unlabored breathing , decreased breath sounds at bases HEART: S1 S2 regular rate and rhythm , ABDOMEN: Soft , no tenderness - Labs CBC & Chem 7: 08/10/22 03:28 08/10/22 03:28 Labs: Abnormal Lab Results - Last 24 Hours (Table) 08/09/22 08/09/22 08/10/22 Range/Units 12:05 17:29 03:28 MCHC 31.5 L (32.0-37.0) g/dL MPV 9.1 L (9.5-12.2) fL Glucose (70-110) mg/dL POC Glucose (mg/dL) 260 H 197 H (70-110) mg/dL 08/10/22 08/10/22 Range/Units 03:28 05:57 MCHC (32.0-37.0) g/dL MPV (9.5-12.2) fL Glucose 155 H (70-110) mg/dL POC Glucose (mg/dL) 237 H (70-110) mg/dL Microbiology - Last 24 Hours (Table) 08/08/22 09:53 Urine Culture - Preliminary Urine,Clean Catch Gram Neg Bacilli Gram Neg Bacilli#2 Assessment and Plan (1) UTI (urinary tract infection) Current Visit: Yes Status: Acute Code(s): N39.0 - URINARY TRACT INFECTION, SITE NOT SPECIFIED SNOMED Code(s): 96823313 Plan: 1patient was in the hospital with mental status changes likely multifactorial likely component of her UTI in this patient who did have history of recurrent UTI did have a positive UA as well as urine culture positive for ESBL E. coli 2Patient seemed to have shown clinical improvement and will continue with Invanz 1 g daily while waiting for the culture to finalize Time with Patient: Less than 30
[2022-08-10 12:45] LABS: Glucose,Whole Blood 157 mg/dL (70-110)
[2022-08-10] MEDS: DICYCLOMINE 10 MG CAP PO SCH ×2 (13:00→20:42)
[2022-08-10 17:43] LABS: Glucose,Whole Blood 96 mg/dL (70-110)
--- NOTE | 2022-08-10 19:48 | P.PN ---
Subjective Progress Note Date: 08/10/22 This is a 72-year-old female who came in with change in mental status possibly secondary to acute urinary tract infection. Patient currently lives at [facility] and has been hospitalized multiple hospitalizations for urinary tract infection. Infectious disease is following as cultures are showing gram-negative bacilli awaiting finalized cultures. Patient is currently maintained on IV Invanz and will await finalized culture to determine discharge antibiotics. Patient is afebrile denies chest pain or shortness of breath. No reports of nausea vomiting and patient is tolerating diet. Will discuss further with case management about discharge planning. Review of systems: Constitutional: No reports of fatigue, fever, or chills Cardiovascular: No reports of chest pain or palpitations Respiratory: No reports of shortness of breath or cough GI: reports of occasional nausea, no reports of vomiting, no diarrhea : No reports of dysuria or retention Neurovascular: reports of generalized weakness chronic for her All medications have been reviewed , Improved PHYSICAL EXAMINATION: GENERAL: The patient is alert and oriented x4, Well developed, well nourished. HEENT: Pupils are round and equally reacting to light. EOMI. no scleral icterus. No conjunctival pallor. Normocephalic, atraumatic. No pharyngeal erythema. No thyromegaly. CARDIOVASCULAR: S1 and S2 muffled PULMONARY: diminished breath sounds bilaterally with no wheezing or rhonchi noted. ABDOMEN: soft. Nontender on exam. obese. non-distended, normoactive bowel sounds. No palpable organomegaly. MUSCULOSKELETAL: No joint swelling or deformity. EXTREMITIES: No cyanosis, clubbing, or pedal edema. NEUROLOGICAL: Gross neurological examination did not reveal any focal deficits. Diffuse weakness SKIN: No rashes. Assessment: Change in mental status, possibly acute metabolic encephalopathy secondary to urinary tract infection with sepsis, present on admission. Patient has had previously ESBL infections Chronic obstructive pulmonary disease, not an exacerbation History of deep vein thrombosis degenerative joint disease History of MRSA GERD Hypertension GI prophylaxis DVT prophylaxis No code Plan: Recommend to continue with current medications and management with infectious disease following. Preliminary culture showing gram-negative bacilli and awaiting finalized urine cultures to determine discharge antibiotics Infectious disease is following and patient is maintained on Invanz and will follow-up once cultures have finalized to discuss possible IV antibiotics on discharge Recommend PT/OT therapy evaluation with case management following his patient will be returning to [facility] Encouraged to increase activity as tolerated Due to multiple complex medical issues, prognosis is guarded Possible discharge in 24 hours The impression and plan of care has been dictated by Tenisha Durham, nurse practitioner as directed. Dr. See MD I have performed a history and examination and MDM of this patient, discussed the same with the dictator, and agree with the dictator's assessment and plan as written ,documented as a scribe. Based on total visit time, I have performed more than 50% of the visit. Any additional findings or plans will be noted. Objective - Vital Signs Vital signs: Vital Signs Temp 98.3 F 08/10/22 07:00 Pulse 78 08/10/22 08:53 Resp 16 08/10/22 07:00 BP 105/60 08/10/22 07:00 Pulse Ox 98 08/10/22 08:53 FiO2 21 08/10/22 08:53 Intake & Output 08/09/22 08/10/22 08/10/22 18:59 06:59 18:59 Intake Total 118 Output Total 225 500 Balance -107 -500 Intake: Oral 118 Output: Urine 225 500 Other: Voiding Method External Catheter External Catheter External Catheter # Voids 1 3 # Bowel Movements 0 1 - Labs CBC & Chem 7: 08/10/22 03:28 08/10/22 03:28 Labs: Abnormal Lab Results - Last 24 Hours (Table) 08/09/22 08/10/22 08/10/22 Range/Units 17:29 03:28 03:28 MCHC 31.5 L (32.0-37.0) g/dL MPV 9.1 L (9.5-12.2) fL Glucose 155 H (70-110) mg/dL POC Glucose (mg/dL) 197 H (70-110) mg/dL 08/10/22 Range/Units 05:57 MCHC (32.0-37.0) g/dL MPV (9.5-12.2) fL Glucose (70-110) mg/dL POC Glucose (mg/dL) 237 H (70-110) mg/dL Microbiology - Last 24 Hours (Table) 08/08/22 11:01 Blood Culture - Preliminary Blood 08/08/22 09:53 Urine Culture - Preliminary Urine,Clean Catch Gram Neg Bacilli Gram Neg Bacilli#2
[2022-08-10] MEDS: FAMOTIDINE 20 MG TAB PO SCH (20:42)
[2022-08-10] MEDS: TOPIRAMATE 25 MG TAB PO SCH (20:42)
[2022-08-10] MEDS: DULoxetine HCL 60 MG CAPSULE.DR PO SCH (20:42)
[2022-08-10] MEDS: PSYLLIUM HUSK 100% 6 GM PACKET PO SCH (20:43)
[2022-08-11 06:22] LABS: Glucose,Whole Blood 160 mg/dL (70-110)
[2022-08-11] MEDS: LEVOTHYROXINE 75 MCG TAB PO SCH (06:24)
[2022-08-11] MEDS: PANTOPRAZOLE 40 MG TABLET PO SCH (06:24)
[2022-08-11] MEDS: INSULIN ASPART (NovoLOG) 100 UNIT/ML VIAL SQ SCH ×4 (06:24→13:00)
[2022-08-11] MEDS: IPRATROPIUM-ALBUTEROL 3 ML NEB INHALATION SCH ×2 (07:33→11:13)
[2022-08-11] MEDS: FLUTICASONE 110 MCG INHALER INHALATION SCH (07:40)
[2022-08-11 08:42] VITALS: BP 106/64; RESP 16; TEMP 98.5
[2022-08-11] MEDS: ERTAPENEM 1 GM in SODIUM CHLORIDE 0.9% 50 ML IVPB SCH (09:47)
[2022-08-11] MEDS: DULoxetine HCL 30 MG CAPSULE.DR PO SCH (09:47)
[2022-08-11] MEDS: FLUTICASONE 50MCG/SPRAY NASAL 16GM EA NOSTRIL SCH (09:47)
[2022-08-11] MEDS: ALPRAZolam 0.25 MG TAB PO SCH (09:47)
[2022-08-11] MEDS: LINAGLIPTIN 5 MG TABLET PO SCH (09:48)
[2022-08-11] MEDS: LOSARTAN 25 MG TAB PO SCH (09:48)
[2022-08-11] MEDS: MULTIVITAMINS, THERA 1 EACH TAB PO SCH (09:48)
[2022-08-11] MEDS: LACTOBACILLUS ACIDOPH & BULGAR 1 EACH PACKET PO SCH (09:48)
[2022-08-11] MEDS: DICYCLOMINE 10 MG CAP PO SCH ×2 (09:48→13:00)
[2022-08-11] MEDS: LACTULOSE 20 GM/30 ML CUP PO SCH (09:48)
[2022-08-11] MEDS: APIXABAN 2.5 MG TABLET PO SCH (09:50)
[2022-08-11] MEDS: NON FORMULARY DRUG (Methenamine Hippurate [Methenamine Hippurate] 1 GM Tablet) PO SCH (10:07)
[2022-08-11 11:16] VITALS: PULSE 72
[2022-08-11] MEDS ORDERED: FOLIC ACID 1 MG TAB PO SCH (12:00)
[2022-08-11] MEDS ORDERED: THIAMINE 100 MG TAB PO SCH (12:00)
--- NOTE | 2022-08-11 12:04 | P.PN ---
Subjective Progress Note Date: 08/11/22 Principal diagnosis: Urinary tract infection Patient is a 72-year-old female with multiple comorbidities history of recurrent UTI presented to the hospital mental status changes did have a positive UA concerning for another episode of urinary tract infection. On today's evaluation that is 08/11/2022 patient continues to be afebrile patient is sleepy but arousable the patient is breathing comfortably on room air no nausea no vomiting reported by the nursing staff did have 1 loose stool this morning per the nurse taking care of the patient Objective - Vital Signs Vital signs: Vital Signs Temp 98.5 F 08/11/22 07:00 Pulse 66 08/11/22 07:47 Resp 16 08/11/22 07:00 BP 106/64 08/11/22 07:00 Pulse Ox 98 08/11/22 07:35 FiO2 21 08/11/22 07:35 Intake & Output 08/10/22 08/11/22 08/11/22 18:59 06:59 18:59 Intake Total 50 118 Balance 50 118 Intake: Intake, IV Titration 50 Amount Ertapenem 1 gm In Sodium 50 Chloride 0.9% 50 ml @ 100 mls/hr IVPB DAILY [facility] Rx #:[id number] Oral 118 Other: Voiding Method External Catheter Diaper # Voids 3 2 1 # Bowel Movements 1 2 1 - Exam GENERAL DESCRIPTION: An elderly female up in the chair in no distress RESPIRATORY SYSTEM: Unlabored breathing , decreased breath sounds at bases HEART: S1 S2 regular rate and rhythm , ABDOMEN: Soft , no tenderness - Labs CBC & Chem 7: 08/10/22 03:28 08/10/22 03:28 Labs: Abnormal Lab Results - Last 24 Hours (Table) 08/10/22 08/11/22 Range/Units 12:44 06:22 POC Glucose (mg/dL) 157 H 160 H (70-110) mg/dL Microbiology - Last 24 Hours (Table) 08/08/22 09:53 Urine Culture - Final Urine,Clean Catch Escherichia coli Klebsiella pneumoniae 08/08/22 11:01 Blood Culture - Preliminary Blood Assessment and Plan (1) UTI (urinary tract infection) Current Visit: Yes Status: Acute Code(s): N39.0 - URINARY TRACT INFECTION, SITE NOT SPECIFIED SNOMED Code(s): 15892754 Plan: 1patient was in the hospital with mental status changes likely multifactorial likely component of her UTI in this patient who did have history of recurrent UTI did have a positive UA as well as urine culture positive for ESBL E. coli 2Patient seemed to have shown clinical improvement , urine has been finalized as ESBL E. coli she will get a midline to continue with Invanz for 1 week on discharge discussed with the admitting team Time with Patient: Less than 30
[2022-08-11 12:13] LABS: Glucose,Whole Blood 148 mg/dL (70-110)
--- NOTE | 2022-08-11 13:53 | P.DS ---
Providers Date of admission: 08/08/22 08:30 Expected date of discharge: 08/11/22 Attending physician: Serene Cui Consults: 08/08/22 09:23 Consult Physician Routine Consulting Provider: Kenyon Fine Consult Reason/Comments: possible UTI Do you want consulting provider notified?: Yes Primary care physician: Tiarra Joel Hospital Course: Final diagnosis Change in mental status, possibly acute metabolic encephalopathy secondary to urinary tract infection with sepsis, present on admission. Patient has had previously ESBL infections, cultures finalized showing E. coli with Klebsiella pneumonia with ESBL Chronic obstructive pulmonary disease, not in exacerbation History of deep vein thrombosis degenerative joint disease History of MRSA GERD Hypertension GI prophylaxis DVT prophylaxis No code Discharge disposition Patient is being discharged in a stable condition with guarded prognosis to [facility]. Patient will follow-up with Dr. Joel in the outpatient setting upon discharge. Patient is to continue with IV Invanz for 1 week per ID recommendations. Total time taken is greater than 35 minutes. Hospital course This is a 72-year-old female who was recently admitted with increased confusion and found to have acute urinary tract infection, present on admission. Patient with significant history of recurrent UTIs was seen and evaluated and followed closely by infectious disease maintained on IV antibiotics. 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 Urine cultures finalized showing E. coli with Klebsiella pneumonia with ESBL. Patient awaiting to receive a midline and will be discharged back to [facility] today. Please refer to consultation notes for further HPI. Currently no reports of chest pain, shortness of breath, or palpitations. Patient is afebrile. No reports of nausea or vomiting and patient is tolerating diet. Patient will be going to [facility] today. Guarded prognosis and high risk for readmissions. Physical exam: Gen: This is a 72-year-old female who is awake, alert and oriented 3, well- developed, well-nourished, obese HEENT: Head is atraumatic, normocephalic. Pupils equal, round. Sclerae is anicteric. NECK: Supple. No JVD. No lymphadenopathy. No thyromegaly. LUNGS: Diminished breath sounds bilaterally with no wheezes or rhonchi. No intercostal retractions. HEART: S1, S2 are muffled ABDOMEN: Soft. Bowel sounds are present. No masses. No tenderness. EXTREMITIES: No pedal edema. No calf tenderness. NEUROLOGICAL: Patient is awake, alert and oriented x3. Cranial nerves 2 through 12 are grossly intact. Generally weak Please refer to medication reconciliation sheet for a list of medications. The impression and plan of care has been dictated by Tenisha Durham, Nurse Practitioner as directed. Dr. See MD I have performed a history and examination and MDM of this patient, discussed the same with the dictator, and agree with the dictator's assessment and plan as written ,documented as a scribe. Based on total visit time, I have performed more than 50% of the visit. Patient Condition at Discharge: Fair Plan - Discharge Summary New Discharge Prescriptions: New Lactulose [Cephulac] 20 gm PO BID PRN #60 ml PRN Reason: Constipation Ipratropium-Albuterol Nebulize [Duoneb 0.5 mg-3 mg/3 ml Soln] 3 ml INHALATION RT-TID each Folic Acid 1 mg PO DAILY@1200 tab Ipratropium-Albuterol Nebulize [Duoneb 0.5 mg-3 mg/3 ml Soln] 3 ml INHALATION RT-TID PRN each PRN Reason: Shortness Of Breath Or Wheezing Ertapenem [INVanz] 1 gm IVPB DAILY 7 Days #7 each Mag Hydrox/Al Hydrox/Simeth [Maalox] 15 ml PO Q6HR PRN ml PRN Reason: Indigestion Acetaminophen Tab [Tylenol] 650 mg PO Q6HR PRN tab PRN Reason: Mild Pain Or Fever > 100.5 Thiamine [Vitamin B-1] 100 mg PO DAILY@1200 tab Continue Levothyroxine Sodium [Synthroid] 150 mcg PO SUTUTHSA@0600 Levothyroxine Sodium [Synthroid] 175 mcg PO MOWEFR@0600 Nitroglycerin Sl Tabs [Nitrostat] 0.4 mg SL Q5M PRN PRN Reason: Chest Pain Famotidine [Pepcid] 20 mg PO HS@2100 Fluticasone Propionate [Flovent Hfa 110 mcg] 1 puff INHALATION RT- BID@0900,2100 Fluticasone Nasal [place] [Flonase Nasal [place]] 1 spray EA NOSTRIL BID@0900,2100 DULoxetine HCL [Cymbalta] 30 mg PO DAILY@0900 Diclofenac Sodium [Voltaren Arthritis Pain 1% Gel] 2 gm TOPICAL Q6H PRN PRN Reason: Pain Calcium Carbonate [Tums] 1,000 mg PO Q6H PRN PRN Reason: Indigestion Dicyclomine [Bentyl] 10 mg PO TID@0900,1300,2100 Cranberry 450mg Tab 450 mg PO BID@0900,2100 Losartan [Cozaar] 25 mg PO DAILY tab Ondansetron [Zofran] 4 mg PO Q6H PRN PRN Reason: Nausea Cyclobenzaprine [Flexeril] 5 mg PO Q12H PRN PRN Reason: Muscle Spasm Linagliptin [Tradjenta] 5 mg PO DAILY@0900 Multivitamins, Thera [Multivitamin (formulary)] 1 tab PO DAILY@0900 Acetaminophen Tab [Tylenol] 650 mg PO Q6HR PRN PRN Reason: Fever And/ Or Pain Topiramate [Topamax] 25 mg PO HS@2100 Melatonin 10 mg PO HS PRN PRN Reason: SLEEP Methenamine Hippurate 1 gm PO BID@0900,2100 rOPINIRole HCL [Requip] 0.5 mg PO BID@0900,2100 Apixaban [Eliquis] 2.5 mg PO BID@0900,2100 Psyllium Husk 100% [Metamucil Packet] 6 gm PO HS@2100 L.acidoph,Paracasei, B.lactis [Probiotic] 2 cap PO DAILY@0900 DULoxetine HCL [Cymbalta] 60 mg PO HS@2100 Insulin Lispro [humaLOG Kwikpen] See Protocol SQ AC-TID Insulin Lispro [humaLOG Kwikpen] 3 unit SQ AC-TID Omeprazole 20 mg PO DAILY@0600 HYDROcodone/APAP 5-325MG [Knott 5-325] 1 tab PO Q8H PRN #4 tab PRN Reason: Pain Changed ALPRAZolam [Xanax] 0.25 mg PO BID@0900,2100 #4 tab Discharge Medication List Levothyroxine Sodium [Synthroid] 150 mcg PO SUTUTHSA@0600 10/02/13 [History] Levothyroxine Sodium [Synthroid] 175 mcg PO MOWEFR@59910/02/13 [History] Nitroglycerin Sl Tabs [Nitrostat] 0.4 mg SL Q5M PRN 10/02/13 [History] Famotidine [Pepcid] 20 mg PO HS@209905/05/21 [History] Multivitamins, Thera [Multivitamin (formulary)] 1 tab PO DAILY@89905/05/21 [History] Acetaminophen Tab [Tylenol] 650 mg PO Q6HR PRN 06/10/21 [History] Fluticasone Propionate [Flovent Hfa 110 mcg] 1 puff INHALATION RT-BID@899,209906/10/21 [History] Topiramate [Topamax] 25 mg PO HS@209906/10/21 [History] DULoxetine HCL [Cymbalta] 30 mg PO DAILY@89909/12/21 [History] Fluticasone Nasal [place] [Flonase Nasal [place]] 1 spray EA NOSTRIL BID@899,209909/12/21 [History] Apixaban [Eliquis] 2.5 mg PO BID@0900,209906/16/22 [History] Calcium Carbonate [Tums] 1,000 mg PO Q6H PRN 06/16/22 [History] Cranberry 450mg Tab 450 mg PO BID@00,209906/16/22 [History] DULoxetine HCL [Cymbalta] 60 mg PO HS@209906/16/22 [History] Diclofenac Sodium [Voltaren Arthritis Pain 1% Gel] 2 gm TOPICAL Q6H PRN 06/16/22 [History] Dicyclomine [Bentyl] 10 mg PO TID@0900,1300,209906/16/22 [History] L.acidoph,Paracasei, B.lactis [Probiotic] 2 cap PO DAILY@89906/16/22 [History] Melatonin 10 mg PO HS PRN 06/16/22 [History] Methenamine Hippurate 1 gm PO BID@0900,209906/16/22 [History] Psyllium Husk 100% [Metamucil Packet] 6 gm PO HS@209906/16/22 [History] rOPINIRole HCL [Requip] 0.5 mg PO BID@0900,209906/16/22 [History] Losartan [Cozaar] 25 mg PO DAILY tab 06/19/22 [Rx] Cyclobenzaprine [Flexeril] 5 mg PO Q12H PRN 08/08/22 [History] Insulin Lispro [humaLOG Kwikpen] 3 unit SQ AC-TID 08/08/22 [History] Insulin Lispro [humaLOG Kwikpen] See Protocol SQ AC-TID 08/08/22 [History] Linagliptin [Tradjenta] 5 mg PO DAILY@0900 08/08/22 [History] Omeprazole 20 mg PO DAILY@0600 08/08/22 [History] Ondansetron [Zofran] 4 mg PO Q6H PRN 08/08/22 [History] ALPRAZolam [Xanax] 0.25 mg PO BID@0900,2100 #4 tab 08/11/22 [Rx] Acetaminophen Tab [Tylenol] 650 mg PO Q6HR PRN tab 08/11/22 [Rx] Ertapenem [INVanz] 1 gm IVPB DAILY 7 Days #7 each 08/11/22 [Rx] Folic Acid 1 mg PO DAILY@1200 tab 08/11/22 [Rx] HYDROcodone/APAP 5-325MG [Knott 5-325] 1 tab PO Q8H PRN #4 tab 08/11/22 [Rx] Ipratropium-Albuterol Nebulize [Duoneb 0.5 mg-3 mg/3 ml Soln] 3 ml INHALATION RT-TID each 08/11/22 [Rx] Ipratropium-Albuterol Nebulize [Duoneb 0.5 mg-3 mg/3 ml Soln] 3 ml INHALATION RT-TID PRN each 08/11/22 [Rx] Lactulose [Cephulac] 20 gm PO BID PRN #60 ml 08/11/22 [Rx] Mag Hydrox/Al Hydrox/Simeth [Maalox] 15 ml PO Q6HR PRN ml 08/11/22 [Rx] Thiamine [Vitamin B-1] 100 mg PO DAILY@1200 tab 08/11/22 [Rx] Follow up Appointment(s)/Referral(s): Tiarra Joel MD [Primary Care Provider] - 1-2 days Activity/Diet/Wound Care/Special Instructions: Patient is going to [facility] as tolerated Patient will continue on IV antibiotics in the form of Invanz for 1 week Continue current diet Discharge Disposition: TRANSFER TO SNF/ECF
[2022-08-11 20:11] LABS: Glucose,Whole Blood 173 mg/dL (70-110)
[2022-08-11 20:11] LABS: Glucose,Whole Blood 150 mg/dL (70-110)
[2022-08-11 20:11] LABS: Glucose,Whole Blood 204 mg/dL (70-110)
[2022-08-11 20:11] LABS: Glucose,Whole Blood 199 mg/dL (70-110)
[2022-08-11 20:11] LABS: Glucose,Whole Blood 111 mg/dL (70-110)
== END 2022-08-11 16:06 | DRG 871 ==
LOC: EC 03:38 → 6NMEDSUR 08:30 → OBSVTOIN 08:30 → 6NMEDSUR 09:09
PROVIDERS: ADMIT Hospitalist; ATTEND Hospitalist
PROC: 05HB33Z Insertion of Infusion Device into Right Basilic Vein, Percutaneous Approach (ICD-10-PCS; principal; 2022-08-11 07:30)
DX: A41.51 Sepsis due to Escherichia coli [E. coli] (principal); G93.41 Metabolic encephalopathy; N39.0 Urinary tract infection, site not specified; F03.90 Unspecified dementia, unspecified severity, without behavioral disturbance, psychotic disturbance, mood disturbance, and anxiety; I10 Essential (primary) hypertension; B96.1 Klebsiella pneumoniae [K. pneumoniae] as the cause of diseases classified elsewhere; Z86.718 Personal history of other venous thrombosis and embolism; Z79.01 Long term (current) use of anticoagulants; J44.9 Chronic obstructive pulmonary disease, unspecified; K21.9 Gastro-esophageal reflux disease without esophagitis; H40.9 Unspecified glaucoma; M19.90 Unspecified osteoarthritis, unspecified site; Z79.4 Long term (current) use of insulin; Z79.84 Long term (current) use of oral hypoglycemic drugs; Z79.890 Hormone replacement therapy; Z79.899 Other long term (current) drug therapy; Z82.49 Family history of ischemic heart disease and other diseases of the circulatory system; Z86.14 Personal history of Methicillin resistant Staphylococcus aureus infection; Z86.19 Personal history of other infectious and parasitic diseases; Z87.440 Personal history of urinary (tract) infections; Z87.442 Personal history of urinary calculi; Z96.653 Presence of artificial knee joint, bilateral; Z96.643 Presence of artificial hip joint, bilateral; Z88.5 Allergy status to narcotic agent; Z88.2 Allergy status to sulfonamides; Z88.8 Allergy status to other drugs, medicaments and biological substances; Z88.1 Allergy status to other antibiotic agents; Z91.040 Latex allergy status; Z87.01 Personal history of pneumonia (recurrent); Z28.311 Partially vaccinated for COVID-19; Z83.2 Family history of diseases of the blood and blood-forming organs and certain disorders involving the immune mechanism
CPT/HCPCS: 36410; 36415; 70450; 71045; 76937; 80048; 80053; 81001; 82803; 83605; 83880; 84484; 85025; 85610; 85730; 87077; 87086; 87186; 93005; 94640; 94760

== ENCOUNTER → 2022-10-02 | Outpatient (CLI) | payer MEDICARE, OTHER ==
--- NOTE | 2022-10-03 22:25 | CT ---
EXAMINATION TYPE: CT urogram wo/w con CT DLP: 3682.5 mGycm, Automated exposure control for dose reduction was used. DATE OF EXAM: 10/02/2022 3:28 PM COMPARISON: CT abdomen 09/14/2021 CLINICAL INDICATION:Female, 72 years old with history of N20 calculus of kidney, renal stones TECHNIQUE: Urogram with imaging of the abdomen and pelvis. Coronal and sagittal reformats were performed. 2D and 3D reconstructions are performed to assist visualization of the urinary tract on a separate workstat ion. Contrast used:100 mL of Isovue 300 without and with IV Contrast, Oral contrast used: None. FINDINGS: LOWER CHEST: No significant findings. GENITOURINARY: RIGHT KIDNEY AND URETER: No calculi. No hydronephrosis or hydroureter. No renal mass or other lesions . No urothelial lesions: no filling defect, dilation, stricture or wall thickening. Limited evaluatio n of the distal ureters secondary to streak artifact from hip arthroplasties. LEFT KIDNEY AND URETER: Areas of cortical thinning within the left kidney. 2 mm left upper pole calcu malathi. No hydronephrosis or hydroureter. No renal mass or other lesions. No urothelial lesions: no fill ing defect, dilation, stricture or wall thickening. Limited evaluation of the distal ureters secondar y to streak artifact from hip arthroplasties. URINARY BLADDER: Not well visualized secondary streak artifact from patient's hip arthroplasties. No obvious mass visualized. REPRODUCTIVE: Unremarkable. ABDOMEN LIVER: Unremarkable. GALLBLADDER AND BILE DUCTS: The gallbladder is surgically absent. PANCREAS: Unremarkable. SPLEEN: Unremarkable. ADRENAL GLANDS: Unremarkable. STOMACH AND BOWEL: . No evidence of bowel obstruction. PERITONEUM: No evidence of pneumoperitoneum, free fluid, or adenopathy. VASCULATURE: No evidence of aortic aneurysm. MUSCULOSKELETAL: No acute osseous abnormalities, bilateral hip arthroplasty changes. Hardware appears intact. There is limited evaluation of the distal ureters secondary to streak artifact. There is mod erate multilevel degeneration changes with disc space narrowing vacuum disc, osteophytes and facet oskar int arthropathy. LYMPH NODES: No gross evidence for lymphadenopathy. SOFT TISSUE/ABDOMINAL WALL: Fat-containing umbilical hernia. IMPRESSION: 1. No evidence of renal/urothelial neoplasm. 2. Left 2 mm renal calculus. No additional calculi visualized. Previous right renal calculus not visu alized on today's 3. Areas of cortical thinning within the left kidney which are new from prior CT and suggests injury resulting from prior on 09/14/2021. 4. Poorly visualized urinary bladder secondary to hip arthroplasties and streak artifact. Consider di rect visualization if there is concern for neoplasm.
== END | disposition home or self-care (01) ==
LOC: RADCTMAIN 12:58
PROVIDERS: ATTEND Urology
DX: N20.0 Calculus of kidney (principal)
CPT/HCPCS: 74178; 74400; Q9967

== ENCOUNTER 2022-11-04 18:49 | Inpatient (IN) | payer MEDICARE, OTHER ==
--- NOTE | 2022-11-04 19:03 | ED ---
General Adult HPI - General Stated complaint: unresponsive episode Time Seen by Provider: 11/04/22 19:00 Source: patient, RN notes reviewed, old records reviewed - History of Present Illness Initial comments: This is a 72-year-old female presents emergency Department from [facility]. [facility] un[facility] and it lasted about 5- 10 minutes. According to the physician at the scene Dr. Joel the patient did not even respond to a sternal rub. Once the patient woke up there was no postictal state there was never any seizure-like activity and patient was back to her baseline alert and oriented 4. EMS stated she was that way the whole way on the right in from the prison. Patient has no complete currently. Patient denies chest pain difficulty breathing or shortness of breath per patient denies fever chills or cough per patient denies headache patient denies numbness or weakness. Patient denies any abdominal pain patient denies nausea vomiting diarrhea patient in route was a little nauseated so they did give the patient Zofran. - Related Data Home Medications Medication Instructions Recorded Confirmed Levothyroxine Sodium [Synthroid] 150 mcg PO SUTUTHSA@59910/02/13 11/04/22 Levothyroxine Sodium [Synthroid] 175 mcg PO MOWEFR@59910/02/13 11/04/22 Nitroglycerin Sl Tabs [Nitrostat] 0.4 mg SL Q5M PRN 10/02/13 11/04/22 Famotidine [Pepcid] 20 mg PO HS@209905/05/21 11/04/22 Multivitamins, Thera [Multivitamin 1 tab PO DAILY@89905/05/21 11/04/22 (formulary)] Fluticasone Propionate [Flovent 1 puff INHALATION RT-BID@899,209906/10/21 11/04/22 Hfa 110 mcg] Topiramate [Topamax] 25 mg PO HS@209906/10/21 11/04/22 DULoxetine HCL [Cymbalta] 30 mg PO DAILY@89909/12/21 11/04/22 Fluticasone Nasal [place] [Flonase 1 spray EA NOSTRIL BID@899,209909/12/21 11/04/22 Nasal [place]] Calcium Carbonate [Tums] 1,000 mg PO Q6H PRN 06/16/22 11/04/22 Cranberry 450mg Tab 450 mg PO BID@899,209906/16/22 11/04/22 DULoxetine HCL [Cymbalta] 60 mg PO HS@209906/16/22 11/04/22 Diclofenac Sodium [Voltaren 2 gm TOPICAL Q6H PRN 06/16/22 11/04/22 Arthritis Pain 1% Gel] Dicyclomine [Bentyl] 10 mg PO TID@0900,1300,209906/16/22 11/04/22 L.acidoph,Paracasei, B.lactis 2 cap PO DAILY@89906/16/22 11/04/22 [Probiotic] Methenamine Hippurate 1 gm PO TID@0900,1300,209906/16/22 11/04/22 Psyllium Husk 100% [Metamucil 6 gm PO HS@209906/16/22 11/04/22 Packet] rOPINIRole HCL [Requip] 0.5 mg PO BID@899,209906/16/22 11/04/22 Insulin Lispro [humaLOG Kwikpen] 3 unit SQ AC-TID@,08/08/22 11/04/22 Insulin Lispro [humaLOG Kwikpen] See Protocol SQ AC-TID@,08/08/22 11/04/22 Linagliptin [Tradjenta] 5 mg PO DAILY@89908/08/22 11/04/22 Omeprazole 20 mg PO DAILY@59908/08/22 11/04/22 Ondansetron [Zofran] 4 mg PO Q6H PRN 08/08/22 11/04/22 Acetaminophen [Tylenol 8 Hour] 650 mg PO HS@209911/04/22 11/04/22 Brexpiprazole [Rexulti] 0.5 mg PO HS@209911/04/22 11/04/22 Cetirizine HCl [Zyrtec] 10 mg PO HS@209911/04/22 11/04/22 Folic Acid 1 mg PO DAILY@89911/04/22 11/04/22 Losartan [Cozaar] 25 mg PO DAILY@89911/04/22 11/04/22 Thiamine [Vitamin B-1] 100 mg PO DAILY@0900 11/04/22 11/04/22 traMADol HCL 50 mg PO BID PRN 11/04/22 11/04/22 Previous Rx's Medication Instructions Recorded ALPRAZolam [Xanax] 0.25 mg PO BID@0900,2100 #4 tab 08/11/22 Acetaminophen Tab [Tylenol] 650 mg PO Q6HR PRN tab 08/11/22 Lactulose [Cephulac] 20 gm PO BID PRN #60 ml 08/11/22 Mag Hydrox/Al Hydrox/Simeth 15 ml PO Q6HR PRN ml 08/11/22 [Maalox] Allergies Allergy/AdvReac Type Severity Reaction Status Date / Time erythromycin base Allergy Unknown Rash/Hives Verified 11/04/22 19:41 latex Allergy Unknown Itching Verified 11/04/22 19:41 adhesive Allergy Rash/Hives Verified 11/04/22 19:41 morphine Allergy Rash/Hives Verified 11/04/22 19:41 pioglitazone [From Actos] Allergy Swelling Verified 11/04/22 19:41 Sulfa (Sulfonamide Allergy Anaphylaxis Verified 11/04/22 19:41 Antibiotics) tetracycline [Tetracycline] Allergy Rash/Hives Verified 11/04/22 19:41 enoxaparin sodium AdvReac Unknown RED LUMPS Verified 11/04/22 19:41 [From Lovenox] ON ABDOMEN AT INJECTION SITES metformin AdvReac Diarrhea Verified 11/04/22 19:41 Review of Systems ROS Statement: Those systems with pertinent positive or pertinent negative responses have been documented in the HPI. ROS Other: All systems not noted in ROS Statement are negative. Past Medical History Past Medical History: Asthma, COPD, Diabetes Mellitus, Deep Vein Thrombosis (DVT), Eye Disorder, GERD/Reflux, Hypertension, Osteoarthritis (OA), Pneumonia, Skin Disorder, Thyroid Disorder Additional Past Medical History / Comment(s): MRSA infection rt foot 5th digit and side of rt foot, Hx GLAUCOMA, TMJ, RENAL CALCULI, UTIs, DVT X 5 ( STATES CAUSED BY CONTROL PILLS AND HORMONES),TORRES MARTINEZ, HAND TREMORS History of Any Multi-Drug Resistant Organisms: ESBL, MRSA Date of last positivie culture/infection: 08/08/22 ESBL; 06/20/21 MRSA MDRO Source:: Urine-ESBL; Foot-MRSA Past Surgical History: Back Surgery, Bladder Surgery, Breast Surgery, Heart Catheterization, Hysterectomy, Joint Replacement, Orthopedic Surgery, Tonsillectomy Additional Past Surgical History / Comment(s): 04/17/16 arthrotomy removal olecranon spur and loose bodies R elbow. , JULIANNE TOTAL HIP, LAPAROSCOPY, BREAST BIOPSY, JULIANNE CARPAL TUNNEL, JULIANNE KNEE REPLACEMENT, JULIANNE ROTATOR CUFF REPAIR, LEFT FOOT SURG, Right foot bursa removal, Past Anesthesia/Blood Transfusion Reactions: Postoperative Nausea & Vomiting (PONV) Past Psychological History: No Psychological Hx Reported Smoking Status: Unknown if ever smoked Past Alcohol Use History: Rare Past Drug Use History: None Reported - Past Family History Mother Family Medical History: Hyperlipidemia, Hypertension Additional Family Medical History / Comment(s): Mother at age 96. Father Family Medical History: Osteoarthritis (OA) Sister(s) Family Medical History: Pulmonary Embolus General Exam - General Exam Comments Initial Comments: GENERAL: Patient is well-developed and well-nourished. Patient is nontoxic and well- hydrated and is in no acute distress. ENT: Neck is soft and supple. No significant lymphadenopathy is noted. Oropharynx is clear. Moist mucous membranes. Neck has full range of motion without eliciting any pain. EYES: The sclera were anicteric and conjunctiva were pink and moist. Extraocular movements were intact and pupils were equal round and reactive to light. Eyelids were unremarkable. PULMONARY: Unlabored respirations. Good breath sounds bilaterally. No audible rales rhonchi or wheezing was noted. CARDIOVASCULAR: There is a regular rate and rhythm without any murmurs gallops or rubs. ABDOMEN: Soft and nontender with normal bowel sounds. SKIN: Skin is clear with no lesions or rashes and otherwise unremarkable. NEUROLOGIC: Patient is alert and oriented x3. Cranial nerves II through XII are grossly intact. Motor and sensory are also intact. Normal speech, volume and content. Symmetrical smile. MUSCULOSKELETAL: Normal extremities with adequate strength and full range of motion. LYMPHATICS: No significant lymphadenopathy is noted PSYCHIATRIC: Normal psychiatric evaluation. Course Vital Signs 11/04/22 11/04/22 11/05/22 19:30 22:39 02:50 Temperature 98.4 F 97.3 F L Pulse Rate 61 56 L 49 L Respiratory 18 16 18 Rate Blood Pressure 133/67 139/65 146/76 O2 Sat by Pulse 97 99 97 Oximetry 11/05/22 11/05/22 06:28 07:31 Temperature 98.0 F Pulse Rate 52 L 55 L Respiratory 18 16 Rate Blood Pressure 135/72 135/72 O2 Sat by Pulse 97 99 Oximetry Medical Decision Making - Medical Decision Making EKG shows sinus bradycardia 57 bpm NV interval 184 QRS is 85 Q-T intervals 412 QTC is 45 per patient's EKG shows T-wave inversions in precordial leads V1 through V5. As well as inferior leads 3 and aVF these were all seen on previous EKGs. Was pt. sent in by a medical professional or institution (, PA, SIGNAL WORKER HELPER, urgent care, hospital, or prison...) When possible be specific @ -Dr. Joel sent the patient in Did you speak to anyone other than the patient for history (EMS, parent, family, police, friend...)? What history was obtained from this source @ -I spoke with Dr. Galeas about the patient's symptoms Did you review nursing and triage notes (agree or disagree)? Why? @ -I reviewed and agree with nursing and triage notes Were old charts reviewed (outside hosp., previous admission, EMS record, old EKG, old radiological studies, urgent care reports/EKG's, prison records)? Report findings @ -I reviewed old charts old lab work and old radiological studies Differential Diagnosis (chest pain, altered mental status, abdominal pain women, abdominal pain men, vaginal bleeding, weakness, fever, dyspnea, syncope, headache, dizziness, GI bleed, back pain, seizure, CVA, palpatations, mental health, musculoskeletal)? @ -Differential Altered Mental Status: Hypoglycemia, DKA, hypercapnia, ETOH, overdose, CO poisoning, trauma, myxedema coma, HTN encephalopathy, infection, encephalitis, psychosis, intercranial hemorrhage, hepatic encephalopathy, meningitis, CVA, this is not meant to be an all-inclusive list EKG interpreted by me (3pts min.). @ -As above X-rays interpreted by me (1pt min.). @ -Chest x-ray shows no acute abnormality CT interpreted by me (1pt min.). @ -CT of the brain shows no acute abnormality U/S interpreted by me (1pt. min.). @ -None done What testing was considered but not performed or refused? (CT, X-rays, U/S, labs)? Why? @ -None What meds were considered but not given or refused? Why? @ -None Did you discuss the management of the patient with other professionals (professionals i.e. , PA, SIGNAL WORKER HELPER, lab, RT, psych nurse, social economist, healthcare economics manager, teacher, tactical intelligence officer, case therapist)? Give summary @ -I spoke with the [facility] hospitalist agreed to admit the patient admitted the patient I wrote admitting orders Was smoking cessation discussed for >3mins.? @ -No Was critical care preformed (if so, how long)? @ -No Were there social determinants of health that impacted care today? How? (Homelessness, low income, unemployed, alcoholism, drug addiction, transporta tion, low edu. Level, literacy, decrease access to med. care, intermediate, rehab)? @ -No Was there de-escalation of care discussed even if they declined (Discuss DNR or withdrawal of care, Hospice)? DNR status @ -No What co-morbidities impacted this encounter? (DM, HTN, Smoking, COPD, CAD, Cancer, CVA, ARF, Chemo, Hep., AIDS, mental health diagnosis, sleep apnea, morbid obesity)? @ -None Was patient admitted / discharged? Hospital course, mention meds given and route, prescriptions, significant lab abnormalities, going to OR and other pertinent info. @ -Patient was alert and oriented 4 the whole time in the emergency department she was at her baseline. Patient had no complaints throughout her stay. Patient's primary medical care doctor Dr. Joel wanted the patient admitted in 1 and her neurological consult. Undiagnosed new problem with uncertain prognosis? @ -No Drug Therapy requiring intensive monitoring for toxicity (Heparin, Nitro, Insulin, Cardizem)? @ -No Were any procedures done? @ -No Diagnosis/symptom? @ -Unresponsive episode Acute, or Chronic, or Acute on Chronic? @ -Acute Uncomplicated (without systemic symptoms) or Complicated (systemic symptoms)? @ -Complicated Side effects of treatment? @ -No Exacerbation, Progression, or Severe Exacerbation? @ -No Poses a threat to life or bodily function? How? (Chest pain, [place], AL, pneumonia, PE, COPD, DKA, ARF, appy, cholecystitis, CVA, Diverticulitis, Homicidal, Suicidal, threat to staff... and all critical care pts) @ -No - Lab Data Result diagrams: 11/04/22 19:25 11/04/22 19:25 Lab Results 11/04/22 11/04/22 11/04/22 Range/Units 19:25 19:25 19:25 WBC 7.0 (3.8-10.6) k/uL RBC 4.32 (3.80-5.40) m/uL Hgb 13.3 (11.4-16.0) gm/dL Hct 39.4 (34.0-46.0) % MCV 91.3 (80.0-100.0) fL MCH 30.7 (25.0-35.0) pg MCHC 33.7 (31.0-37.0) g/dL RDW 13.0 (11.5-15.5) % Plt Count 197 (150-450) k/uL MPV 6.7 Neutrophils % 61 % Lymphocytes % 28 % Monocytes % 7 % Eosinophils % 2 % Basophils % 1 % Neutrophils # 4.3 (1.3-7.7) k/uL Lymphocytes # 2.0 (1.0-4.8) k/uL Monocytes # 0.5 (0-1.0) k/uL Eosinophils # 0.1 (0-0.7) k/uL Basophils # 0.0 (0-0.2) k/uL PT 9.3 (9.0-12.0) sec INR 0.9 (<1.2) APTT 18.8 L (22.0-30.0) sec Sodium 138 (137-145) mmol/L Potassium 3.7 (3.5-5.1) mmol/L Chloride 100 (98-107) mmol/L Carbon Dioxide 29 (22-30) mmol/L Anion Gap 9 mmol/L BUN 17 (7-17) mg/dL Creatinine 0.66 (0.52-1.04) mg/dL Est GFR (CKD-EPI)AfAm >90 (>60 ml/min/1.73 sqM) Est GFR (CKD-EPI)NonAf 88 (>60 ml/min/1.73 sqM) Glucose 108 H (74-99) mg/dL POC Glucose (mg/dL) (70-110) mg/dL POC Glu Transfer Specialist ID Calcium 8.9 (8.4-10.2) mg/dL Total Bilirubin 0.4 (0.2-1.3) mg/dL AST 22 (14-36) U/L ALT 21 (4-34) U/L Alkaline Phosphatase 140 H (38-126) U/L Troponin I (0.000-0.034) ng/mL Total Protein 6.8 (6.3-8.2) g/dL Albumin 3.9 (3.5-5.0) g/dL 11/04/22 11/04/22 Range/Units 19:25 19:34 WBC (3.8-10.6) k/uL RBC (3.80-5.40) m/uL Hgb (11.4-16.0) gm/dL Hct (34.0-46.0) % MCV (80.0-100.0) fL MCH (25.0-35.0) pg MCHC (31.0-37.0) g/dL RDW (11.5-15.5) % Plt Count (150-450) k/uL MPV Neutrophils % % Lymphocytes % % Monocytes % % Eosinophils % % Basophils % % Neutrophils # (1.3-7.7) k/uL Lymphocytes # (1.0-4.8) k/uL Monocytes # (0-1.0) k/uL Eosinophils # (0-0.7) k/uL Basophils # (0-0.2) k/uL PT (9.0-12.0) sec INR (<1.2) APTT (22.0-30.0) sec Sodium (137-145) mmol/L Potassium (3.5-5.1) mmol/L Chloride (98-107) mmol/L Carbon Dioxide (22-30) mmol/L Anion Gap mmol/L BUN (7-17) mg/dL Creatinine (0.52-1.04) mg/dL Est GFR (CKD-EPI)AfAm (>60 ml/min/1.73 sqM) Est GFR (CKD-EPI)NonAf (>60 ml/min/1.73 sqM) Glucose (74-99) mg/dL POC Glucose (mg/dL) 125 H (70-110) mg/dL POC Glu Transfer Specialist ID Rhein, Fredy Calcium (8.4-10.2) mg/dL Total Bilirubin (0.2-1.3) mg/dL AST (14-36) U/L ALT (4-34) U/L Alkaline Phosphatase (38-126) U/L Troponin I <0.012 (0.000-0.034) ng/mL Total Protein (6.3-8.2) g/dL Albumin (3.5-5.0) g/dL Disposition Clinical Impression: Unresponsive episode Disposition: ADMITTED IP TO THIS [facility] Time of Disposition: 20:52
[2022-11-04 19:35] LABS: Glucose,Whole Blood 125 mg/dL (70-110)
[2022-11-04 19:38] LABS: Basophils % (A) 1 %; Eosinophils # (A) 0.1 k/uL (0-0.7); Eosinophils % (A) 2 %; HCT 39.4 % (34.0-46.0); HGB 13.3 gm/dL (11.4-16.0); Lymphocytes % (A) 28 %; MCH 30.7 pg (25.0-35.0); MCHC 33.7 g/dL (31.0-37.0); MCV 91.3 fL (80.0-100.0); Mean Platelet Volume 6.7; Monocytes # (A) 0.5 k/uL (0-1.0); Monocytes % (A) 7 %; Neutrophils # (A) 4.3 k/uL (1.3-7.7); Neutrophils % (A) 61 %; Platelet Count 197 k/uL (150-450); RBC 4.32 m/uL (3.80-5.40)
[2022-11-04 19:51] LABS: ALT 21 U/L (4-34); AST 22 U/L (14-36); African American GFR (CKD) >90 (>60 ml/min/1.73 sqM); Albumin 3.9 g/dL (3.5-5.0); Alkaline Phosphatase 140 U/L (38-126); Anion Gap 9 mmol/L; Blood Urea Nitrogen 17 mg/dL (7-17); Calcium 8.9 mg/dL (8.4-10.2); Carbon Dioxide 29 mmol/L (22-30); Chloride 100 mmol/L (98-107); Glucose 108 mg/dL (74-99); Non-African American GFR(CKD) 88 (>60 ml/min/1.73 sqM); Potassium 3.7 mmol/L (3.5-5.1); Sodium 138 mmol/L (137-145); Total Bilirubin 0.4 mg/dL (0.2-1.3); Total Protein 6.8 g/dL (6.3-8.2)
[2022-11-04 20:05] LABS: INR 0.9 (<1.2); Prothrombin Time 9.3 sec (9.0-12.0)
[2022-11-04 20:17] LABS: Partial Thromboplastin Time 18.8 sec (22.0-30.0)
--- NOTE | 2022-11-04 20:30 | XR ---
EXAMINATION TYPE: XR chest 2V DATE OF EXAM: 11/04/2022 7:54 PM COMPARISON: Chest radiographs from 08/08/2022 TECHNIQUE: XR chest 2V Frontal and lateral views of the chest. CLINICAL INDICATION:Female, 72 years old with history of altered mental status; FINDINGS: Lungs/Pleura: There is no evidence of pleural effusion, focal consolidation, or pneumothorax. Pulmonary vascularity: Unremarkable. Heart/mediastinum: Cardiomediastinal silhouette is unremarkable. Musculoskeletal: No acute osseous pathology. IMPRESSION: Low lung volumes with a generalized hazy appearance which could represent atelectasis versus pulmonar y edema correlate with serum BNP.
--- NOTE | 2022-11-04 20:50 | CT ---
EXAMINATION TYPE: CT brain wo con CT DLP: 1212.1 mGycm, Automated exposure control for dose reduction was used. DATE OF EXAM: 11/04/2022 8:10 PM COMPARISON: 6 08/08/2022. CLINICAL INDICATION:Female, 72 years old with history of Altered mental status, AMS TECHNIQUE: Brain: Axial CT images of the brain were obtained with coronal and sagittal reformats created and rev iewed. Contrast used: None. Oral contrast used: None. FINDINGS: Brain: Extra-axial spaces: No abnormal extra-axial fluid collections. Ventricular system: Dilatation in proportion to cerebral atrophy. Cerebral parenchyma: Cerebral atrophy. No acute intraparenchymal hemorrhage or mass effect. The rehman -white junction is well differentiated. Scattered hypoattenuating areas are seen within the white mat ter. Cerebellum: Unremarkable. Mass effect: No evidence of midline shift. Intracranial vasculature: Atherosclerotic calcifications of the intracranial vessels. Soft tissues: Normal. Calvarium/osseous structures: No depressed skull fracture. Paranasal sinuses and mastoid air cells: Mild scattered paranasal sinus disease. Visualized orbits: Bilateral aphakia IMPRESSION: 1. No acute intracranial process. 2. Nonspecific white matter changes, likely secondary to chronic small vessel ischemic disease.
[2022-11-04] MEDS ORDERED: ACETAMINOPHEN TAB 325 MG TAB PO PRN (22:07)
[2022-11-04] MEDS ORDERED: traMADol 50 MG TAB PO PRN (22:48)
[2022-11-04 23:44] LABS: Appearance,Urine Clear (Clear); Bacteria,Urine Many /hpf; Bilirubin,Urine Negative (Negative); Blood,Urine Negative (Negative); Color,Urine Light Yellow; Glucose,Urine (UA) Negative (Negative); Ketones,Urine Negative (Negative); Leukocyte Esterase,Urine Large (Negative); Nitrite,Urine Positive (Negative); Protein,Urine Negative (Negative); RBC,Urine 2 /hpf (0-5); Specific Gravity,Urine 1.012 (1.001-1.035); Squamous Epithelial Cell,Urine 2 /hpf (0-4); Urobilinogen,Urine <2.0 mg/dL (<2.0); WBC,Urine 38 /hpf (0-5)
[2022-11-04 23:46] LABS: Amphetamine Screen,Urine Not Detected (NotDetected); Barbiturate Screen,Urine Not Detected (NotDetected); Benzodiazepines Screen,Urine Detected (NotDetected); Cocaine Screen,Urine Not Detected (NotDetected); Methadone Screen, Urine Not Detected (NotDetected); Opiate Screen,Urine Not Detected (NotDetected); Oxycodone Screen, Urine Not Detected (NotDetected); Phencyclidine Screen,Urine Not Detected (NotDetected); Tricyclic Antidepressant,Urine Not Detected (NotDetected); Urn Cannabinoid Scrn Not Detected (NotDetected)
[2022-11-05] MEDS ORDERED: ALPRAZolam 0.25 MG TAB PO PRN (02:20)
--- NOTE | 2022-11-05 12:18 | P.CNNES ---
History of Present Illness Consult date: 11/05/22 Requesting physician: Armani Alexander Reason for Consult: unresponsiveness episode History of Present Illness: This is a 72-year-old woman with history of hand tremor, diabetes, hypertension, hypothyroidism, DVT presented to the emergency department from [facility] because of episode of unresponsiveness. Some of the issues obtained from medical record. According to patient she passed out yesterday and she is unsure what transpired that. She denies any warning signs prior to the episode. Denies of any urinary or bowel incontinence to her knowledge. According to the ED note is seems the patient had episode of unresponsiveness lasting between 5- 10 minutes according to the physician over at the nursing facility and the patient did not even respond to sternal rub. Once the patient woke up there is no post ictal state and she did not have any seizure-like activity during the episode and she was back to baseline and was oriented 4. Patient denied of any fever, shortness of breath, any numbness any weakness any headache. Patient states she follows up with Dr. Jefferson for neurological care and she had prior syncopal episode and unable to tell me whether those syncopal episodes were actually seizures or not she was inconsistent with answer. She thinks some of the prior syncopal episodes were seizures that was felt by her neurologist according to the patient but again she was not consistent. She could not tell me what medication she was on for those syncopal episode that was suspicious for seizures. She is on Topamax 25 mg daily at bedtime according to EMR. She cannot tell me what other medications were tried in the past. Currently she feels back to baseline. Some other workup during his hospital visit consisted of: Patient is afebrile. CBC with differential is unremarkable Chemistry panel is that initial serum glucose is 108. Sodium, BUN creatinine, calcium is within normal limits. Urinalysis seems the positive for underlying degenerative tract infection. Urine drug screen is positive for benzos. CT of the head is reported as no acute intracranial process. I personally reviewed the CT and I agree there is no acute or subacute ischemia. There is no typical hemorrhage. No mass effect appreciable. Review of Systems Review of system: The 12 point system was reviewed and apparent positive and negative per HPI. Past Medical History Past Medical History: Asthma, COPD, Diabetes Mellitus, Deep Vein Thrombosis (DVT), Eye Disorder, GERD/Reflux, Hypertension, Osteoarthritis (OA), Pneumonia, Skin Disorder, Thyroid Disorder Additional Past Medical History / Comment(s): MRSA infection rt foot 5th digit and side of rt foot, Hx GLAUCOMA, TMJ, RENAL CALCULI, UTIs, DVT X 5 ( STATES CAUSED BY CONTROL PILLS AND HORMONES),[place], HAND TREMORS History of Any Multi-Drug Resistant Organisms: ESBL, MRSA Date of last positivie culture/infection: 08/08/22 ESBL; 06/20/21 MRSA MDRO Source:: Urine-ESBL; Foot-MRSA Past Surgical History: Back Surgery, Bladder Surgery, Breast Surgery, Heart Catheterization, Hysterectomy, Joint Replacement, Orthopedic Surgery, Tonsill ectomy Additional Past Surgical History / Comment(s): 04/17/16 arthrotomy removal olecranon spur and loose bodies R elbow. , JULIANNE TOTAL HIP, LAPAROSCOPY, BREAST BIOPSY, JULIANNE CARPAL TUNNEL, JULIANNE KNEE REPLACEMENT, JULIANNE ROTATOR CUFF REPAIR, LEFT FOOT SURG, Right foot bursa removal, Past Anesthesia/Blood Transfusion Reactions: Postoperative Nausea & Vomiting (PONV) Past Psychological History: No Psychological Hx Reported Smoking Status: Unknown if ever smoked Past Alcohol Use History: Rare Past Drug Use History: None Reported - Past Family History Mother Family Medical History: Hyperlipidemia, Hypertension Additional Family Medical History / Comment(s): Mother at age 96. Father Family Medical History: Osteoarthritis (OA) Sister(s) Family Medical History: Pulmonary Embolus Medications and Allergies Home Medications Medication Instructions Recorded Confirmed Type Levothyroxine Sodium [Synthroid] 150 mcg PO SUTUTHSA@0600 10/02/13 11/04/22 History Levothyroxine Sodium [Synthroid] 175 mcg PO MOWEFR@59910/02/13 11/04/22 History Nitroglycerin Sl Tabs [Nitrostat] 0.4 mg SL Q5M PRN 10/02/13 11/04/22 History Famotidine [Pepcid] 20 mg PO HS@209905/05/21 11/04/22 History Multivitamins, Thera [Multivitamin 1 tab PO DAILY@0900 05/05/21 11/04/22 History (formulary)] Fluticasone Propionate [Flovent 1 puff INHALATION RT-BID@0900,209906/10/21 11/04/22 History Hfa 110 mcg] Topiramate [Topamax] 25 mg PO HS@209906/10/21 11/04/22 History DULoxetine HCL [Cymbalta] 30 mg PO DAILY@89909/12/21 11/04/22 History Fluticasone Nasal [place] [Flonase 1 spray EA NOSTRIL BID@0900,209909/12/21 11/04/22 History Nasal [place]] Calcium Carbonate [Tums] 1,000 mg PO Q6H PRN 06/16/22 11/04/22 History Cranberry 450mg Tab 450 mg PO BID@0900,209906/16/22 11/04/22 History DULoxetine HCL [Cymbalta] 60 mg PO HS@209906/16/22 11/04/22 History Diclofenac Sodium [Voltaren 2 gm TOPICAL Q6H PRN 06/16/22 11/04/22 History Arthritis Pain 1% Gel] Dicyclomine [Bentyl] 10 mg PO TID@0900,1300,209906/16/22 11/04/22 History L.acidoph,Paracasei, B.lactis 2 cap PO DAILY@89906/16/22 11/04/22 History [Probiotic] Methenamine Hippurate 1 gm PO TID@0900,1300,209906/16/22 11/04/22 History Psyllium Husk 100% [Metamucil 6 gm PO HS@209906/16/22 11/04/22 History Packet] rOPINIRole HCL [Requip] 0.5 mg PO BID@0900,209906/16/22 11/04/22 History Insulin Lispro [humaLOG Kwikpen] 3 unit SQ AC-TID@,08/08/22 11/04/22 History Insulin Lispro [humaLOG Kwikpen] See Protocol SQ AC-TID@,08/08/22 0 11/04/22 History Linagliptin [Tradjenta] 5 mg PO DAILY@89908/08/22 11/04/22 History Omeprazole 20 mg PO DAILY@59908/08/22 11/04/22 History Ondansetron [Zofran] 4 mg PO Q6H PRN 08/08/22 11/04/22 History ALPRAZolam [Xanax] 0.25 mg PO BID@0900,2100 #4 tab 08/11/22 11/04/22 Rx Acetaminophen Tab [Tylenol] 650 mg PO Q6HR PRN tab 08/11/22 11/04/22 Rx Lactulose [Cephulac] 20 gm PO BID PRN #60 ml 08/11/22 11/04/22 Rx Mag Hydrox/Al Hydrox/Simeth 15 ml PO Q6HR PRN ml 08/11/22 11/04/22 Rx [Maalox] Acetaminophen [Tylenol 8 Hour] 650 mg PO HS@209911/04/22 11/04/22 History Brexpiprazole [Rexulti] 0.5 mg PO HS@209911/04/22 11/04/22 History Cetirizine HCl [Zyrtec] 10 mg PO HS@209911/04/22 11/04/22 History Folic Acid 1 mg PO DAILY@89911/04/22 11/04/22 History Losartan [Cozaar] 25 mg PO DAILY@89911/04/22 11/04/22 History Thiamine [Vitamin B-1] 100 mg PO DAILY@89911/04/22 11/04/22 History traMADol HCL 50 mg PO BID PRN 11/04/22 11/04/22 History Allergies Allergy/AdvReac Type Severity Reaction Status Date / Time erythromycin base Allergy Unknown Rash/Hives Verified 11/04/22 19:41 latex Allergy Unknown Itching Verified 11/04/22 19:41 adhesive Allergy Rash/Hives Verified 11/04/22 19:41 morphine Allergy Rash/Hives Verified 11/04/22 19:41 pioglitazone [From Actos] Allergy Swelling Verified 11/04/22 19:41 Sulfa (Sulfonamide Allergy Anaphylaxis Verified 11/04/22 19:41 Antibiotics) tetracycline [Tetracycline] Allergy Rash/Hives Verified 11/04/22 19:41 enoxaparin sodium AdvReac Unknown RED LUMPS Verified 11/04/22 19:41 [From Lovenox] ON ABDOMEN AT INJECTION SITES metformin AdvReac Diarrhea Verified 11/04/22 19:41 Physical Examination - Vital Signs Vital Signs: Vital Signs Temp Pulse Resp BP Pulse Ox 11/05/22 07:31 98.0 F 55 L 16 135/72 99 11/05/22 06:28 52 L 18 135/72 97 11/05/22 02:50 49 L 18 146/76 97 11/04/22 22:39 97.3 F L 56 L 16 139/65 99 11/04/22 19:30 98.4 F 61 18 133/67 97 Intake and Output 11/04/22 11/05/22 11/05/22 22:59 06:59 14:59 Other: Weight 70.76 kg GENERAL: The patient is lying in bed and is not in acute distress. NEUROLOGICAL: Higher mental function: The patient is awake, alert, oriented to self, place and time. Patient is following commands. No aphasia and no neglect. Cranial nerves: The pupils are round, equal and reactive to light. Visual hunter are full to confrontation throughout. Extraocular movement is intact no nystagmus is noted. Facial sensation is normal to touch throughout. The facial strength is normal throughout. Patient has bilateral lip tremor. Hearing is severely decreased bilaterally to hand rub. Tongue is midline and moved [id number] without any difficulty. No dysarthria is noted. Shoulder shrug is normal bilaterally. Motor: The strength is left lower is had 4+ and limited because of left hip/knee pain (stated old). Otherwise 5 over 5 throughout. Normal tone and bulk. Cerebellum: Normal finger to nose bilaterally. Sensation: Sensation is normal to touch throughout. Reflexes (right/left): 2+ throughout while lowers are 1+. Plantars are mute bilaterally. Results - Laboratory Findings CBC and BMP: 11/04/22 19:25 11/04/22 19:25 Abnormal Lab Findings: Abnormal Labs 11/04/22 11/04/22 11/04/22 19:25 19:25 19:34 APTT 18.8 L Glucose 108 H POC Glucose (mg/dL) 125 H Alkaline Phosphatase 140 H Urine Nitrite Ur Leukocyte Esterase Urine WBC Urine Bacteria U Benzodiazepines Scrn 11/04/22 23:10 APTT Glucose POC Glucose (mg/dL) Alkaline Phosphatase Urine Nitrite Positive H Ur Leukocyte Esterase Large H Urine WBC 38 H Urine Bacteria Many H U Benzodiazepines Scrn Detected H Assessment and Plan Assessment: This is a 72-year-old woman who presented from her nursing facility because episode of unresponsiveness lasting between 5-10 minutes and she did not have any jerking of any extremities or no postictal state being reported by her primary at nursing facility. Syncopal episode (LOC for 5-10minutes and shaking of extremities and patient denies any aura prior and no post-ictal confusion): Unknown cause. Reported history of hand tremor but on examination has mouth tremor. Prior syncopal episodes in past Diabetes mellitus Hypertension Hypothyroidism Polypharmacy Plan: I ordered a routine EEG to rule out any underlying seizure discharges I ordered MRI of the brain with and without to rule outs underlying stroke or mass central cause that led to this Orthostatic vitals was ordered and pending I ordered TSH, vitamin B-12, ammonia level, folate consider 2-D echo Continue cardiac monitoring. Consulted PT and OT We'll defer the rest of medical management to primary team Upon discharge, patient needs to follow-up with her neurologist as outpatient within 1-2 weeks (Dr. Jefferson). The plan is discussed with patient and her nurse. Thank you for the consultation UPDATE: Preliminary routine EEG: Is abnormal. The backgroun slowing is suggestive of mild encephalopathy. There is no focal slowing, epileptiform discharges or seizure on the EEG. Unsure if truly patient the syncopal episodes are epileptic. Recommend going up on topiramate from 25mg once daily to 50 mg 1 tablet twice a day. Recommend further evaluation of her syncopal episode by cardiology team and neurology team as an outpatient. She follows up with Dr. Jefferson Time with Patient: Greater than 30
--- NOTE | 2022-11-05 12:26 | MR ---
EXAMINATION TYPE: MR brain wo/w con DATE OF EXAM: 11/05/2022 11:47 AM CLINICAL INDICATION:Female, 72 years old with history of confusion. COMPARISON: CT brain 11/04/2022. TECHNIQUE: Multi planar, multi sequence imaging was performed through the brain including: T1, T2, In version recovery, susceptibility weighted imaging and gradient echo imaging and Diffusion weighted im aging. The patient was then given intravenous contrast and multi planar, T1 fat-saturation images wer e obtained. IV Contrast: 7 cc Gadavist FINDINGS: Ventricular dilation in proportion to cerebral atrophy. The rehman-white junctions, ventricular system, basal cisterns appear unremarkable. Diffusion-weighted imaging shows no evidence of restricted diffu cristiane to suggest acute/subacute infarct. Intracranial arterial flow voids are maintained. Midline stru ctures show no abnormality. Scattered foci of high T2 signal intensity are seen within the periventri cular white matter. Blooming artifact right temporal lobe left occipital lobe/parietal region compati ble with microhemorrhage. After administration of gadolinium, no abnormal enhancement is seen. The bone marrow signal is within normal limits. Paranasal sinuses and mastoid air cells: No significant paranasal sinus disease. Visualized orbits: Bilaterally aphakia. IMPRESSION: 1. No evidence of intracranial mass, acute/subacute infarct, or abnormal enhancement. 2. Nonspecific white matter changes, likely related to small vessel ischemic disease
[2022-11-05] MEDS ORDERED: CALCIUM CARBONATE 500 MG CHEWABLE PO PRN (13:54)
[2022-11-05] MEDS ORDERED: LACTULOSE 20 GM/30 ML CUP PO PRN (13:54)
[2022-11-05] MEDS ORDERED: DICLOFENAC SODIUM GEL 100 GM TUBE TOPICAL PRN (13:54)
[2022-11-05] MEDS ORDERED: NITROGLYCERIN SL TABS 0.4 MG TAB SUBLINGUAL PRN (13:54)
[2022-11-05] MEDS ORDERED: traMADol 50 MG TAB PO PRN (13:54)
[2022-11-05] MEDS ORDERED: ONDANSETRON 4 MG TAB PO PRN (13:54)
[2022-11-05] MEDS ORDERED: MAG HYDROX/AL HYDROX/SIMETH 30 ML CUP PO PRN (13:54)
[2022-11-05 14:39] VITALS: BP 137/75; PULSE 60; RESP 18; TEMP 98.7
--- NOTE | 2022-11-05 15:00 | P.HPIM ---
History of Present Illness H&P Date: 11/05/22 This is a 72-year-old female with history of asthma, COPD, diabetes mellitus, DVT, GERD, also urinary tract infections chronic pain. Patient was recently at this facility for urinary tract infection and was discharged to [facility] on the [place] for rehabilitation on IV Invanz for an ESBL UTI. Patient completed a course of therapy and has been [facility] for rehab since. Patient is brought in by EMS for an episode of unresponsiveness patient states that she was sitting up in the chair in the dining tee then she remembers is that her head at the table. No witnessed seizure activity and she is not post ictal on evaluation. Denies any loss of bowel or loss of bladder during the episode. This episode of unresponsiveness lasted about 5-10 minutes and patient has not responded to sternal rub. Otherwise she's had no acute complaints no headache no vision changes. Denies any chest pain, denies any shortness of breath no nausea vomiting or diarrhea. She is at her baseline mentation. She was admitted to the hospital under medicine with neurology consultation. She had had a chest xray done which shows low lung volumes with a general mild hazy appearance and represent atelectasis versus pulmonary edema correlate with serum BNP. She is clear lungs on evaluation and saturating 100% on room air currently. Troponin level is negative. Brain CT showed no acute intracranial process. Brain MRI showed no evidence of intracranial mass, no acute or subacute infarct and no abnormal enhancement. There is nonspecific white matter changes likely related to small vessel ischemic disease. Patient also underwent EEG which is showing mild encephalopathy there is no evidence for any seizure-like activity these results were discussed with the neurologist. TSH is pending at this time. After discussion with neurology they recommended patient be increased to 50 mg Topamax at bedtime additionally recommend to hold tramadol for pain management at this time as his medication can lower the seizure threshold. This episode is likely due to overmedication effect we'll recommend also to hold Xanax at this time. Monitor patient's blood pressure daily. She does follow Dr. Jefferson with neurology outpatient we recommend to see him within 1 week. Repeat labs in 2-3 days. Patient condition is back to [facility] today. REVIEW OF SYSTEMS: CONSTITUTIONAL: No fever, no malaise, no fatigue. HEENT: No recent visual problems or hearing problems. Denied any sore throat. CARDIOVASCULAR: No chest pain, orthopnea, PND, no palpitations, no syncope. PULMONARY: No shortness of breath, no cough, no hemoptysis. GASTROINTESTINAL: No diarrhea, no nausea, no vomiting, no abdominal pain. NEUROLOGICAL: No headaches, no weakness, no numbness. HEMATOLOGICAL: Denies any bleeding or petechiae. GENITOURINARY: Denies any burning micturition, frequency, or urgency. MUSCULOSKELETAL/RHEUMATOLOGICAL: Denies any joint pain, swelling, or any muscle pain. ENDOCRINE: Denies any polyuria or polydipsia. The rest of the 14-point review of systems is negative. PHYSICAL EXAMINATION: GENERAL: The patient is alert and oriented x3, not in any acute distress. Well developed, well nourished. HEENT: Pupils are round and equally reacting to light. EOMI. No scleral icterus. No conjunctival pallor. Normocephalic, atraumatic. No pharyngeal erythema. No thyromegaly. CARDIOVASCULAR: S1 and S2 present. No murmurs, rubs, or gallops. PULMONARY: Chest is clear to auscultation, no wheezing or crackles. ABDOMEN: Soft, nontender, nondistended, normoactive bowel sounds. No palpable organomegaly. MUSCULOSKELETAL: No joint swelling or deformity. EXTREMITIES: No cyanosis, clubbing, or pedal edema. NEUROLOGICAL: Gross neurological examination did not reveal any focal deficits. SKIN: No rashes. Assessment Acute episode of unresponsiveness likely due to medication effect, brain CT, brain MRI, EEG are negative. History of hand tremor History of asthma, COPD with no acute exacerbation History of diabetes mellitus type 2 with controlled blood glucose History of DVT History of ESBL UTI recently treated with IV Invanz a few months ago. Hypertension currently normotensive Gastroesophageal reflux disease GI prophylaxis DVT prophylaxis Plan Patient is medically clear for discharge back to [facility] MRI, brain CT reviewed an EEG was discussed with the neurologist and Topamax has been increased to 50 mg at at bedtime. Recommend this time to hold Xanax and discharge and also to hold tramadol as this can lower the seizure threshold although seizure was not evident on the E EG. Repeat labs in 2-3 days Patient to also follow up with her neurologist on discharge in [address] Jefferson. Also patient is follow-up with cardiology. Patient to see Dr. Joel on discharge. The impression and plan of care has been dictated by Hodan Dominguez Nurse Practitioner as directed. Dr. Ramana MD I have performed a history and physical examination and medical decision making of this patient, discussed the same with the dictator, and agree with the dictators assessment and plan as written, documented as a scribe. Based on total visit time, I have performed more than 50% of this visit. Past Medical History Past Medical History: Asthma, COPD, Diabetes Mellitus, Deep Vein Thrombosis (DVT), Eye Disorder, GERD/Reflux, Hypertension, Osteoarthritis (OA), Pneumonia, Skin Disorder, Thyroid Disorder Additional Past Medical History / Comment(s): MRSA infection rt foot 5th digit and side of rt foot, Hx GLAUCOMA, TMJ, RENAL CALCULI, UTIs, DVT X 5 ( STATES CAUSED BY CONTROL PILLS AND HORMONES),[place], HAND TREMORS History of Any Multi-Drug Resistant Organisms: ESBL, MRSA Date of last positivie culture/infection: 08/08/22 ESBL; 06/20/21 MRSA MDRO Source:: Urine-ESBL; Foot-MRSA Past Surgical History: Back Surgery, Bladder Surgery, Breast Surgery, Heart Catheterization, Hysterectomy, Joint Replacement, Orthopedic Surgery, Tonsillectomy Additional Past Surgical History / Comment(s): 04/17/16 arthrotomy removal olecranon spur and loose bodies R elbow. , JULIANNE TOTAL HIP, LAPAROSCOPY, BREAST BIOPSY, JULIANNE CARPAL TUNNEL, JULIANNE KNEE REPLACEMENT, JULIANNE ROTATOR CUFF REPAIR, LEFT FOOT SURG, Right foot bursa removal, Past Anesthesia/Blood Transfusion Reactions: Postoperative Nausea & Vomiting (PONV) Past Psychological History: No Psychological Hx Reported Smoking Status: Unknown if ever smoked Past Alcohol Use History: Rare Past Drug Use History: None Reported - Past Family History Mother Family Medical History: Hyperlipidemia, Hypertension Additional Family Medical History / Comment(s): Mother at age 96. Father Family Medical History: Osteoarthritis (OA) Sister(s) Family Medical History: Pulmonary Embolus Medications and Allergies Home Medications Medication Instructions Recorded Confirmed Type Levothyroxine Sodium [Synthroid] 150 mcg PO SUTUTHSA@59910/02/13 11/04/22 History Levothyroxine Sodium [Synthroid] 175 mcg PO MOWEFR@59910/02/13 11/04/22 History Nitroglycerin Sl Tabs [Nitrostat] 0.4 mg SL Q5M PRN 10/02/13 11/04/22 History Famotidine [Pepcid] 20 mg PO HS@209905/05/21 11/04/22 History Multivitamins, Thera [Multivitamin 1 tab PO DAILY@89905/05/21 11/04/22 History (formulary)] Fluticasone Propionate [Flovent 1 puff INHALATION RT-BID@899,209906/10/21 11/04/22 History Hfa 110 mcg] DULoxetine HCL [Cymbalta] 30 mg PO DAILY@89909/12/21 11/04/22 History Fluticasone Nasal [place] [Flonase 1 spray EA NOSTRIL BID@0900,209909/12/21 11/04/22 History Nasal [place]] Calcium Carbonate [Tums] 1,000 mg PO Q6H PRN 06/16/22 11/04/22 History Cranberry 450mg Tab 450 mg PO BID@0900,209906/16/22 11/04/22 History DULoxetine HCL [Cymbalta] 60 mg PO HS@209906/16/22 11/04/22 History Diclofenac Sodium [Voltaren 2 gm TOPICAL Q6H PRN 06/16/22 11/04/22 History Arthritis Pain 1% Gel] Dicyclomine [Bentyl] 10 mg PO TID@0900,1300,209906/16/22 11/04/22 History L.acidoph,Paracasei, B.lactis 2 cap PO DAILY@89906/16/22 11/04/22 History [Probiotic] Methenamine Hippurate 1 gm PO TID@0900,1300,209906/16/22 11/04/22 History Psyllium Husk 100% [Metamucil 6 gm PO HS@209906/16/22 11/04/22 History Packet] rOPINIRole HCL [Requip] 0.5 mg PO BID@0900,209906/16/22 11/04/22 History Insulin Lispro [humaLOG Kwikpen] 3 unit SQ AC-TID@08,,08/08/22 11/04/22 His tory Insulin Lispro [humaLOG Kwikpen] See Protocol SQ AC-TID@,,08/08/22 11/04/22 History Linagliptin [Tradjenta] 5 mg PO DAILY@89908/08/22 11/04/22 History Omeprazole 20 mg PO DAILY@59908/08/22 11/04/22 History Ondansetron [Zofran] 4 mg PO Q6H PRN 08/08/22 11/04/22 History Acetaminophen Tab [Tylenol] 650 mg PO Q6HR PRN tab 08/11/22 11/04/22 Rx Lactulose [Cephulac] 20 gm PO BID PRN #60 ml 08/11/22 11/04/22 Rx Mag Hydrox/Al Hydrox/Simeth 15 ml PO Q6HR PRN ml 08/11/22 11/04/22 Rx [Maalox] Acetaminophen [Tylenol 8 Hour] 650 mg PO HS@209911/04/22 11/04/22 History Brexpiprazole [Rexulti] 0.5 mg PO HS@209911/04/22 11/04/22 History Cetirizine HCl [Zyrtec] 10 mg PO HS@209911/04/22 11/04/22 History Folic Acid 1 mg PO DAILY@89911/04/22 11/04/22 History Losartan [Cozaar] 25 mg PO DAILY@89911/04/22 11/04/22 History Thiamine [Vitamin B-1] 100 mg PO DAILY@89911/04/22 11/04/22 History Topiramate [Topamax] 50 mg PO HS@2100 tab 11/05/22 Rx Allergies Allergy/AdvReac Type Severity Reaction Status Date / Time erythromycin base Allergy Unknown Rash/Hives Verified 11/04/22 19:41 latex Allergy Unknown Itching Verified 11/04/22 19:41 adhesive Allergy Rash/Hives Verified 11/04/22 19:41 morphine Allergy Rash/Hives Verified 11/04/22 19:41 pioglitazone [From Actos] Allergy Swelling Verified 11/04/22 19:41 Sulfa (Sulfonamide Allergy Anaphylaxis Verified 11/04/22 19:41 Antibiotics) tetracycline [Tetracycline] Allergy Rash/Hives Verified 11/04/22 19:41 enoxaparin sodium AdvReac Unknown RED LUMPS Verified 11/04/22 19:41 [From Lovenox] ON ABDOMEN AT INJECTION SITES metformin AdvReac Diarrhea Verified 11/04/22 19:41 Physical Exam Vitals: Vital Signs Temp Pulse Resp BP Pulse Ox 11/05/22 07:31 98.0 F 55 L 16 135/72 99 11/05/22 06:28 52 L 18 135/72 97 11/05/22 02:50 49 L 18 146/76 97 11/04/22 22:39 97.3 F L 56 L 16 139/65 99 11/04/22 19:30 98.4 F 61 18 133/67 97 Intake and Output 11/04/22 11/05/22 11/05/22 22:59 06:59 14:59 Other: Weight 70.76 kg Results CBC & Chem 7: 11/04/22 19:25 11/04/22 19:25 Labs: Abnormal Lab Results - Last 24 Hours (Table) 11/04/22 11/04/22 11/04/22 Range/Units 19:25 19:25 19:34 APTT 18.8 L (22.0-30.0) sec Glucose 108 H (74-99) mg/dL POC Glucose (mg/dL) 125 H (70-110) mg/dL Alkaline Phosphatase 140 H (38-126) U/L Urine Nitrite (Negative) Ur Leukocyte Esterase (Negative) Urine WBC (0-5) /hpf Urine Bacteria (None) /hpf U Benzodiazepines Scrn (NotDetected) 11/04/22 Range/Units 23:10 APTT (22.0-30.0) sec Glucose (74-99) mg/dL POC Glucose (mg/dL) (70-110) mg/dL Alkaline Phosphatase (38-126) U/L Urine Nitrite Positive H (Negative) Ur Leukocyte Esterase Large H (Negative) Urine WBC 38 H (0-5) /hpf Urine Bacteria Many H (None) /hpf U Benzodiazepines Scrn Detected H (NotDetected) Assessment and Plan Time with Patient: Greater than 30
--- NOTE | 2022-11-05 15:07 | EEG ---
ELECTROENCEPHALOGRAM REPORT CLINICAL HISTORY: This is a 72-year-old woman who had an episode of loss of consciousness at her nursing facility. The video EEG is obtained to evaluate for seizure epileptiform activity. RELEVANT MEDICATION: Topiramate. EEG TYPE: A routine 21-channel EEG using the 10/20 electrode placement system is used. DESCRIPTION: Background consists of 6 to 6-1/2 hertz activity that is moderate voltage and that is well modulated and well sustained. There is no physiological stage 2 sleep architecture. There is no focal slowing. Interictal and ictal is none. ACTIVATION PROCEDURE: Photic stimulation did not evoke a posterior driving response. There is no abnormality during the photic stimulation. Hyperventilation was not performed. CLINICAL CORRELATION: This is an abnormal routine EEG. The background slowing is suggestive of mild encephalopathy. Otherwise, there is no focal slowing, epileptiform discharge or seizure on the EEG. Clinical correlation is recommended. MMLIDIA / YOAVN: [id number] / MTDD
--- NOTE | 2022-11-05 15:26 | P.DS ---
Providers Date of admission: 11/04/22 20:52 Attending physician: Serene Cui Consults: 11/04/22 20:52 Consult Physician Urgent Consulting Provider: Richard Roger Consult Reason/Comments: Unresponsive episode Do you want consulting provider notified?: Yes Primary care physician: Tiarra Joel Hospital Course: Final Diagnosis Acute episode of unresponsiveness likely due to medication effect, brain CT, brain MRI, EEG are negative. History of hand tremor History of asthma, COPD with no acute exacerbation History of diabetes mellitus type 2 with controlled blood glucose History of DVT History of ESBL UTI recently treated with IV Invanz a few months ago. Hypertension currently normotensive Gastroesophageal reflux disease GI prophylaxis DVT prophylaxis Discharge Disposition Patient is stable for discharge back to subacute rehab at [facility]. Medication changes that have been made including increasing Topamax to 50 mg at at bedtime as well as holding Xanax and tramadol on discharge. She needs to follow-up with her neurologist Dr. Jefferson and also her normal fiber locking supervisor which appears to be Dr. Beatty. Patient to see her PCP Dr Joel and also to repeat labs in 2-3 days. Hospital Course This is a 72-year-old female with history of asthma, COPD, diabetes mellitus, DVT, GERD, also urinary tract infections chronic pain. Patient was recently at this facility for urinary tract infection and was discharged to [facility] [place] the [place] for rehabilitation on IV Invanz for an ESBL UTI. Patient completed a course of therapy and has been [facility] for rehab since. Patient is brought in by EMS for an episode of unresponsiveness patient states that she was sitting up in the chair in the dining tee then she remembers is that her head at the table. No witnessed seizure activity and she is not post ictal on evaluation. Denies any loss of bowel or loss of bladder during the episode. This episode of unresponsiveness lasted about 5-10 minutes and patient has not responded to sternal rub. Otherwise she's had no acute complaints no headache no vision changes. Denies any chest pain, denies any shortness of breath no nausea vomiting or diarrhea. She is at her baseline mentation. She was admitted to the hospital under medicine with neurology consultation. She had had a chest xray done which shows low lung volumes with a general mild hazy appearance and represent atelectasis versus pulmonary edema correlate with serum BNP. She is clear lungs on evaluation and saturating 100% on room air currently. Troponin level is negative. Brain CT showed no acute intracranial process. Brain MRI showed no evidence of intracranial mass, no acute or subacute infarct and no abnormal enhancement. There is nonspecific white matter changes likely related to small vessel ischemic disease. Patient also underwent EEG which is showing mild encephalopathy there is no evidence for any seizure-like activity these results were discussed with the neurologist. TSH is pending at this time. After discussion with neurology they recommended patient be increased to 50 mg Topamax at bedtime additionally recommend to hold tramadol for pain management at this time as his medication can lower the seizure threshold. This episode is likely due to overmedication effect we'll recommend also to hold Xanax at this time. Monitor patient's blood pressure daily. She does follow Dr. Jefferson with neurology outpatient we recommend to see him within 1 week. Repeat labs in 2-3 days. Patient condition is back to [facility] today. Please see medication reconciliation for a list of current medication. Thank you for allowing us to participate in the care of this patient. The impression and plan of care has been dictated by Hodan Dominguez, Nurse Practitioner as directed. Dr. Ramana MD I have performed a history and physical examination and medical decision making of this patient, discussed the same with the dictator, and agree with the dictators assessment and plan as written, documented as a scribe. Based on total visit time, I have performed more than 50% of this visit. Patient Condition at Discharge: Fair Plan - Discharge Summary New Discharge Prescriptions: New Topiramate [Topamax] 50 mg PO HS@2100 tab Continue Levothyroxine Sodium [Synthroid] 150 mcg PO SUTUTHSA@0600 Levothyroxine Sodium [Synthroid] 175 mcg PO MOWEFR@0600 Nitroglycerin Sl Tabs [Nitrostat] 0.4 mg SL Q5M PRN PRN Reason: Chest Pain Famotidine [Pepcid] 20 mg PO HS@2100 Fluticasone Propionate [Flovent Hfa 110 mcg] 1 puff INHALATION RT- BID@0900,2100 Fluticasone Nasal [place] [Flonase Nasal [place]] 1 spray EA NOSTRIL BID@0900,2100 DULoxetine HCL [Cymbalta] 30 mg PO DAILY@0900 Diclofenac Sodium [Voltaren Arthritis Pain 1% Gel] 2 gm TOPICAL Q6H PRN PRN Reason: Pain Calcium Carbonate [Tums] 1,000 mg PO Q6H PRN PRN Reason: Indigestion Dicyclomine [Bentyl] 10 mg PO TID@0900,1300,2100 Cranberry 450mg Tab 450 mg PO BID@0900,2100 Ondansetron [Zofran] 4 mg PO Q6H PRN PRN Reason: Nausea Linagliptin [Tradjenta] 5 mg PO DAILY@0900 Lactulose [Cephulac] 20 gm PO BID PRN #60 ml PRN Reason: Constipation Acetaminophen [Tylenol 8 Hour] 650 mg PO HS@2100 Brexpiprazole [Rexulti] 0.5 mg PO HS@2100 Cetirizine HCl [Zyrtec] 10 mg PO HS@2100 Folic Acid 1 mg PO DAILY@0900 Multivitamins, Thera [Multivitamin (formulary)] 1 tab PO DAILY@0900 Methenamine Hippurate 1 gm PO TID@0900,1300,2100 rOPINIRole HCL [Requip] 0.5 mg PO BID@0900,2100 Psyllium Husk 100% [Metamucil Packet] 6 gm PO HS@2100 L.acidoph,Paracasei, B.lactis [Probiotic] 2 cap PO DAILY@0900 DULoxetine HCL [Cymbalta] 60 mg PO HS@2100 Insulin Lispro [humaLOG Kwikpen] See Protocol SQ AC-TID@,, Insulin Lispro [humaLOG Kwikpen] 3 unit SQ AC-TID@,, Omeprazole 20 mg PO DAILY@0600 Mag Hydrox/Al Hydrox/Simeth [Maalox] 15 ml PO Q6HR PRN ml PRN Reason: Indigestion Acetaminophen Tab [Tylenol] 650 mg PO Q6HR PRN tab PRN Reason: Mild Pain Or Fever > 100.5 Losartan [Cozaar] 25 mg PO DAILY@0900 Thiamine [Vitamin B-1] 100 mg PO DAILY@0900 Discontinued Topiramate [Topamax] 25 mg PO HS@2100 ALPRAZolam [Xanax] 0.25 mg PO BID@0900,2100 #4 tab traMADol HCL 50 mg PO BID PRN PRN Reason: Pain Discharge Medication List Levothyroxine Sodium [Synthroid] 150 mcg PO SUTUTHSA@0600 10/02/14 [History] Levothyroxine Sodium [Synthroid] 175 mcg PO MOWEFR@59910/02/13 [History] Nitroglycerin Sl Tabs [Nitrostat] 0.4 mg SL Q5M PRN 10/02/13 [History] Famotidine [Pepcid] 20 mg PO HS@209905/05/21 [History] Multivitamins, Thera [Multivitamin (formulary)] 1 tab PO DAILY@89905/05/21 [History] Fluticasone Propionate [Flovent Hfa 110 mcg] 1 puff INHALATION RT-BID@899,209906/10/21 [History] DULoxetine HCL [Cymbalta] 30 mg PO DAILY@89909/12/21 [History] Fluticasone Nasal [place] [Flonase Nasal [place]] 1 spray EA NOSTRIL BID@899,209909/12/21 [History] Calcium Carbonate [Tums] 1,000 mg PO Q6H PRN 06/16/22 [History] Cranberry 450mg Tab 450 mg PO BID@0900,209906/16/22 [History] DULoxetine HCL [Cymbalta] 60 mg PO HS@209906/16/22 [History] Diclofenac Sodium [Voltaren Arthritis Pain 1% Gel] 2 gm TOPICAL Q6H PRN 06/16/22 [History] Dicyclomine [Bentyl] 10 mg PO TID@0900,1300,209906/16/22 [History] L.acidoph,Paracasei, B.lactis [Probiotic] 2 cap PO DAILY@89906/16/22 [History] Methenamine Hippurate 1 gm PO TID@0900,1300,209906/16/22 [History] Psyllium Husk 100% [Metamucil Packet] 6 gm PO HS@209906/16/22 [History] rOPINIRole HCL [Requip] 0.5 mg PO BID@899,209906/16/22 [History] Insulin Lispro [humaLOG Kwikpen] 3 unit SQ AC-TID@08,12,08/08/22 [History] Insulin Lispro [humaLOG Kwikpen] See Protocol SQ AC-TID@,12,08/08/22 [History] Linagliptin [Tradjenta] 5 mg PO DAILY@89908/08/22 [History] Omeprazole 20 mg PO DAILY@59908/08/22 [History] Ondansetron [Zofran] 4 mg PO Q6H PRN 08/08/22 [History] Acetaminophen Tab [Tylenol] 650 mg PO Q6HR PRN tab 08/11/22 [Rx] Lactulose [Cephulac] 20 gm PO BID PRN #60 ml 08/11/22 [Rx] Mag Hydrox/Al Hydrox/Simeth [Maalox] 15 ml PO Q6HR PRN ml 08/11/22 [Rx] Acetaminophen [Tylenol 8 Hour] 650 mg PO HS@209911/04/22 [History] Brexpiprazole [Rexulti] 0.5 mg PO HS@209911/04/22 [History] Cetirizine HCl [Zyrtec] 10 mg PO HS@209911/04/22 [History] Folic Acid 1 mg PO DAILY@89911/04/22 [History] Losartan [Cozaar] 25 mg PO DAILY@89911/04/22 [History] Thiamine [Vitamin B-1] 100 mg PO DAILY@89911/04/22 [History] Topiramate [Topamax] 50 mg PO HS@2099 tab 11/05/22 [Rx] Follow up Appointment(s)/Referral(s): Tiarra Joel MD [Primary Care Provider] - 1-2 Days Krysten Judd MD [REFERRING] - 1 Week None,Stated [REFERRING] - 1-2 days Dustin Beatty MD [STAFF PHYSICIAN] - 1 Week Ambulatory/Diagnostic Orders: Basic Metabolic Panel [LAB.AMB] Time Frame: 3 Days, Location: None Selected Complete Blood Count w/diff [LAB.AMB] Time Frame: 3 Days, Location: None Selected Activity/Diet/Wound Care/Special Instructions: Patient recommended to increase topamax to 50 mg HS and to follow up with her neurologist Dr. Jefferson in 1 week Repeat labs in 2 to 3 days Recommend to stop tramadol for pain as this can lower seizure threshold. Discharge Disposition: TRANSFER TO SNF/ECF
[2022-11-05] MEDS ORDERED: INSULIN ASPART (NovoLOG) 100 UNIT/ML VIAL SQ SCH ×2 (17:00)
[2022-11-05] MEDS ORDERED: NON FORMULARY DRUG (Methenamine Hippurate [Methenamine Hippurate] 1 GM Tablet) PO SCH (21:00)
[2022-11-05] MEDS ORDERED: PSYLLIUM HUSK 100% 6 GM PACKET PO SCH (21:00)
[2022-11-05] MEDS ORDERED: LORATADINE 10 MG TAB PO SCH (21:00)
[2022-11-05] MEDS ORDERED: NON FORMULARY DRUG (Brexpiprazole [Rexulti] 0.5 MG Tablet) PO SCH (21:00)
[2022-11-05] MEDS ORDERED: TOPIRAMATE 25 MG TAB PO SCH (21:00)
[2022-11-05] MEDS ORDERED: CRANBERRY 450 MG PO SCH (21:00)
[2022-11-05] MEDS ORDERED: FLUTICASONE 110 MCG INHALER INHALATION SCH (21:00)
[2022-11-05] MEDS ORDERED: FAMOTIDINE 20 MG TAB PO SCH (21:00)
[2022-11-05] MEDS ORDERED: DICYCLOMINE 10 MG CAP PO SCH (21:00)
[2022-11-05] MEDS ORDERED: FLUTICASONE 50MCG/SPRAY NASAL 16GM EA NOSTRIL SCH (21:00)
[2022-11-05] MEDS ORDERED: ACETAMINOPHEN TAB 325 MG TAB PO SCH (21:00)
[2022-11-05] MEDS ORDERED: DULoxetine HCL 60 MG CAPSULE.DR PO SCH (21:00)
[2022-11-06] MEDS ORDERED: LEVOTHYROXINE 88 MCG TAB PO SCH (06:00)
[2022-11-06] MEDS ORDERED: PANTOPRAZOLE 40 MG TABLET PO SCH (06:00)
[2022-11-06] MEDS ORDERED: MULTIVITAMINS, THERA 1 EACH TAB PO SCH (09:00)
[2022-11-06] MEDS ORDERED: THIAMINE 100 MG TAB PO SCH (09:00)
[2022-11-06] MEDS ORDERED: LINAGLIPTIN 5 MG TABLET PO SCH (09:00)
[2022-11-06] MEDS ORDERED: LACTOBACILLUS ACIDOPHILUS/PECT 1 EACH CAPSULE PO SCH (09:00)
[2022-11-06] MEDS ORDERED: FOLIC ACID 1 MG TAB PO SCH (09:00)
[2022-11-06] MEDS ORDERED: LOSARTAN 25 MG TAB PO SCH (09:00)
[2022-11-06] MEDS ORDERED: DULoxetine HCL 30 MG CAPSULE.DR PO SCH (09:00)
[2022-11-07] MEDS ORDERED: LEVOTHYROXINE 75 MCG TAB PO SCH (06:00)
== END 2022-11-05 15:50 | DRG 948 ==
LOC: EC 18:49 → 4SSUR 20:52
PROVIDERS: ADMIT Hospitalist; ATTEND Hospitalist
PROC: 4A10X4Z Monitoring of Central Nervous Electrical Activity, External Approach (ICD-10-PCS; principal; 2022-11-05)
DX: R41.82 Altered mental status, unspecified (principal); M19.90 Unspecified osteoarthritis, unspecified site; Z96.653 Presence of artificial knee joint, bilateral; T50.905A Adverse effect of unspecified drugs, medicaments and biological substances, initial encounter; K21.9 Gastro-esophageal reflux disease without esophagitis; R00.1 Bradycardia, unspecified; I10 Essential (primary) hypertension; J45.909 Unspecified asthma, uncomplicated; J44.9 Chronic obstructive pulmonary disease, unspecified; E11.9 Type 2 diabetes mellitus without complications; Z86.14 Personal history of Methicillin resistant Staphylococcus aureus infection; Z88.1 Allergy status to other antibiotic agents; Z88.5 Allergy status to narcotic agent; Z91.040 Latex allergy status; Z91.048 Other nonmedicinal substance allergy status; Z87.440 Personal history of urinary (tract) infections; Z96.643 Presence of artificial hip joint, bilateral; Z87.01 Personal history of pneumonia (recurrent); Z86.16 Personal history of COVID-19; Z79.4 Long term (current) use of insulin; Z79.899 Other long term (current) drug therapy; Z88.2 Allergy status to sulfonamides; Z88.8 Allergy status to other drugs, medicaments and biological substances; X58.XXXA Exposure to other specified factors, initial encounter
CPT/HCPCS: 36415; 70450; 70553; 71046; 80053; 80306; 81001; 82140; 82607; 82746; 84443; 84484; 85025; 85610; 85730; 93005; 95819; 99285

== ENCOUNTER → 2023-02-01 | Outpatient (CLI) | payer MEDICARE, OTHER ==
--- NOTE | 2023-03-06 10:41 | EM ---
EVENT MONITOR STUDY PERFORMED: This is a 30-day event monitor. INDICATIONS: Syncope underlying rhythm is sinus with episodes of sinus bradycardia and sinus tachycardia. Slowest heart rate was 56 beats per minute. The fastest heart rate was 104 beats per minute. Ventricular or supraventricular tachyarrhythmias were not documented. There were no episodes of significant bradycardia. CONCLUSIONS: This 30-day event monitor shows sinus rhythm with episodes of sinus bradycardia and sinus tachycardia. MMODL / IJN: [id number] /
== END | disposition home or self-care (01) ==
LOC: RADECHMAIN 07:35
PROVIDERS: ATTEND Psychiatry & Neurology Neurology
DX: R55 Syncope and collapse (principal); R00.1 Bradycardia, unspecified; R00.0 Tachycardia, unspecified
CPT/HCPCS: 93270

== ENCOUNTER → 2023-06-01 | Outpatient (CLI) | payer MEDICARE, OTHER ==
--- NOTE | 2023-06-01 15:11 | CT ---
EXAMINATION TYPE: CT abdomen pelvis w con DATE OF EXAM: 06/01/2023 COMPARISON: 10/02/2022 INDICATION: History of UTI, abdomen pain DLP: 1734 mGycm, Automated exposure control for dose reduction was used. CONTRAST: 100 mL of Isovue 300. Study performed with Oral Contrast TECHNIQUE: Axial images were obtained from above the diaphragm to the pubic rami in the axial plane a t 5 mm thick sections. Reconstructed images are reviewed on the computer in the coronal plane. FINDINGS: Limited CT sections are obtained the lung bases. The lung bases are clear. CT ABDOMEN: Liver: Normal Spleen: Normal Pancreas: Normal Adrenal glands: The adrenal glands are normal. Gallbladder: Normal Kidneys: No masses are evident. No hydronephrosis is present. No cysts are present. Delayed images were obtained through the kidneys, which remain unremarkable. Aorta: Mild Vascular calcification is within the aorta. Inferior vena cava: Normal. CT PELVIS: Beam hardening artifact from bilateral hip prosthesis causes limitation in the inferior pe lvis. Loops of bowel within the abdomen and pelvis are normal. There are loops of bowel which are incom pletely distended or lack oral contrast limiting their evaluation. Appendix: Normal as visualized. Urinary bladder: Limited evaluation Genitourinary structures: Uterus and ovaries are not identified. Osseous structures: No suspicious lytic or sclerotic lesions. Facet degenerative changes are within t he lumbar spine. Some spinal canal stenosis may be in the lower lumbar spine. Closer evaluation can b e performed as clinically indicated. IMPRESSION: 1. No acute abdomen/pelvis abnormality. Follow-up can be performed as clinically indicated. 2. Some limitation due to beam hardening artifact from bilateral hip prostheses within the pelvis.
== END | disposition home or self-care (01) ==
LOC: RADCTMAIN 10:55
PROVIDERS: ATTEND Family Medicine
DX: Z87.440 Personal history of urinary (tract) infections (principal); R10.9 Unspecified abdominal pain
CPT/HCPCS: 74177; Q9967

== ENCOUNTER 2023-07-26 17:01 | Emergency (ER) | payer MEDICARE, OTHER ==
[2023-07-26 17:14] VITALS: RESP 18; TEMP 97.6
--- NOTE | 2023-07-26 17:42 | ED ---
Fall HPI - General Chief Complaint: Fall Stated Complaint: fall Time Seen by Provider: 07/26/23 17:11 Source: patient, EMS, RN notes reviewed Mode of arrival: EMS - History of Present Illness Initial Comments: This is a 73-year-old female who presents to the emergency department from [facility] complaint of a fall. Patient's baseline mentation is ANO x 2, therefore majority of information was obtained from EMS and nursing staff. It is noted that patient fell while at [facility], denies loss of consciousness. Patient endorses pain over the right eyebrow, and pain on her right hip and lower back. Patient is not on any blood thinners. She denies paresthesias. Patient denies presyncopal characteristics before time of fall, states that she fell while standing from her wheelchair. Patient is not on any blood thinners. patient ambulates with a wheelchair at baseline. - Related Data Home Medications Medication Instructions Recorded Confirmed Levothyroxine Sodium [Synthroid] 150 mcg PO SUTUTHSA@59910/02/13 11/04/22 Levothyroxine Sodium [Synthroid] 175 mcg PO MOWEFR@59910/02/13 11/04/22 Nitroglycerin Sl Tabs [Nitrostat] 0.4 mg SL Q5M PRN 10/02/13 11/04/22 Famotidine [Pepcid] 20 mg PO HS@209905/05/21 11/04/22 Multivitamins, Thera [Multivitamin 1 tab PO DAILY@89905/05/21 11/04/22 (formulary)] Fluticasone Propionate [Flovent 1 puff INHALATION RT-BID@899,209906/10/21 11/04/22 Hfa 110 mcg] DULoxetine HCL [Cymbalta] 30 mg PO DAILY@89909/12/21 11/04/22 Fluticasone Nasal [place] [Flonase 1 spray EA NOSTRIL BID@899,209909/12/21 11/04/22 Nasal [place]] Calcium Carbonate [Tums] 1,000 mg PO Q6H PRN 06/16/22 11/04/22 Cranberry 450mg Tab 450 mg PO BID@899,209906/16/22 11/04/22 DULoxetine HCL [Cymbalta] 60 mg PO HS@209906/16/22 11/04/22 Diclofenac Sodium [Voltaren 2 gm TOPICAL Q6H PRN 06/16/22 11/04/22 Arthritis Pain 1% Gel] Dicyclomine [Bentyl] 10 mg PO TID@0900,1299,209906/16/22 11/04/22 L.acidoph,Paracasei, B.lactis 2 cap PO DAILY@89906/16/22 11/04/22 [Probiotic] Methenamine Hippurate 1 gm PO TID@899,1299,209906/16/22 11/04/22 Psyllium Husk 100% [Metamucil 6 gm PO HS@209906/16/22 11/04/22 Packet] rOPINIRole HCL [Requip] 0.5 mg PO BID@899,209906/16/22 11/04/22 Insulin Lispro [humaLOG Kwikpen] 3 unit SQ AC-TID@,08/08/22 11/04/22 Insulin Lispro [humaLOG Kwikpen] See Protocol SQ AC-TID@,,08/08/22 11/04/22 Linagliptin [Tradjenta] 5 mg PO DAILY@89908/08/22 11/04/22 Omeprazole 20 mg PO DAILY@59908/08/22 11/04/22 Ondansetron [Zofran] 4 mg PO Q6H PRN 08/08/22 11/04/22 Acetaminophen [Tylenol 8 Hour] 650 mg PO HS@209911/04/22 11/04/22 Brexpiprazole [Rexulti] 0.5 mg PO HS@209911/04/22 11/04/22 Cetirizine HCl [Zyrtec] 10 mg PO HS@209911/04/22 11/04/22 Folic Acid 1 mg PO DAILY@89911/04/22 11/04/22 Losartan [Cozaar] 25 mg PO DAILY@89911/04/22 11/04/22 Thiamine [Vitamin B-1] 100 mg PO DAILY@89911/04/22 11/04/22 Previous Rx's Medication Instructions Recorded Acetaminophen Tab [Tylenol] 650 mg PO Q6HR PRN tab 08/11/22 Lactulose [Cephulac] 20 gm PO BID PRN #60 ml 08/11/22 Mag Hydrox/Al Hydrox/Simeth 15 ml PO Q6HR PRN ml 08/11/22 [Maalox] Topiramate [Topamax] 50 mg PO HS@2100 tab 11/05/22 Allergies Allergy/AdvReac Type Severity Reaction Status Date / Time erythromycin base Allergy Unknown Rash/Hives Verified 07/26/23 17:11 latex Allergy Unknown Itching Verified 07/26/23 17:11 adhesive Allergy Rash/Hives Verified 07/26/23 17:11 morphine Allergy Rash/Hives Verified 07/26/23 17:11 pioglitazone [From Actos] Allergy Swelling Verified 07/26/23 17:11 Sulfa (Sulfonamide Allergy Anaphylaxis Verified 07/26/23 17:11 Antibiotics) tetracycline [Tetracycline] Allergy Rash/Hives Verified 07/26/23 17:11 enoxaparin sodium AdvReac Unknown RED LUMPS Verified 07/26/23 17:11 [From Lovenox] ON ABDOMEN AT INJECTION SITES metformin AdvReac Diarrhea Verified 07/26/23 17:11 Review of Systems ROS Statement: Those systems with pertinent positive or pertinent negative responses have been documented in the HPI. ROS Other: All systems not noted in ROS Statement are negative. Past Medical History Past Medical History: Asthma, COPD, Diabetes Mellitus, Deep Vein Thrombosis (DVT), Eye Disorder, GERD/Reflux, Hypertension, Osteoarthritis (OA), Pneumonia, Skin Disorder, Thyroid Disorder Additional Past Medical History / Comment(s): MRSA infection rt foot 5th digit and side of rt foot, Hx GLAUCOMA, TMJ, RENAL CALCULI, UTIs, DVT X 5 ( STATES CAUSED BY CONTROL PILLS AND HORMONES),[place], HAND TREMORS History of Any Multi-Drug Resistant Organisms: ESBL, MRSA Date of last positivie culture/infection: 04/05/23 ESBL; 06/20/21 MRSA MDRO Source:: Urine-ESBL; Foot-MRSA Past Surgical History: Back Surgery, Bladder Surgery, Breast Surgery, Heart Catheterization, Hysterectomy, Joint Replacement, Orthopedic Surgery, Tonsillectomy Additional Past Surgical History / Comment(s): 04/17/16 arthrotomy removal olecranon spur and loose bodies R elbow. , JULIANNE TOTAL HIP, LAPAROSCOPY, BREAST BIOPSY, JULIANNE CARPAL TUNNEL, JULIANNE KNEE REPLACEMENT, JULIANNE ROTATOR CUFF REPAIR, LEFT FOOT SURG, Right foot bursa removal, Past Anesthesia/Blood Transfusion Reactions: Postoperative Nausea & Vomiting (PONV) Past Psychological History: No Psychological Hx Reported Smoking Status: Never smoker, Unknown if ever smoked Past Alcohol Use History: Rare Past Drug Use History: None Reported - Past Family History Mother Family Medical History: Hyperlipidemia, Hypertension Additional Family Medical History / Comment(s): Mother at age 96. Father Family Medical History: Osteoarthritis (OA) Sister(s) Family Medical History: Pulmonary Embolus General Exam Limitations: no limitations, language barrier (patient's baseline mentation A&O X3) Head exam: Present: other (hematoma over the right superior eyebrow with soft tissue swelling and ecchymosis) Eye exam: Present: normal appearance, PERRL, EOMI. Absent: scleral icterus, conjunctival injection, periorbital swelling ENT exam: Present: normal exam, mucous membranes moist Neck exam: Present: normal inspection, tenderness (with ROM of the neck). Absent: meningismus, lymphadenopathy Respiratory exam: Present: normal lung sounds bilaterally. Absent: respiratory distress, wheezes, rales, rhonchi, stridor Cardiovascular Exam: Present: regular rate, normal rhythm, normal heart sounds. Absent: systolic murmur, diastolic murmur, rubs, gallop, clicks GI/Abdominal exam: Present: soft, normal bowel sounds. Absent: distended, tenderness, guarding, rebound, rigid Course Vital Signs 07/26/23 07/26/23 17:04 20:20 Temperature 97.6 F Pulse Rate 56 L 62 Respiratory 18 18 Rate Blood Pressure 163/84 149/72 O2 Sat by Pulse 97 99 Oximetry Medical Decision Making - Medical Decision Making Was pt. sent in by a medical professional or institution (, PA, HOME PARAPROFESSIONAL, urgent care, hospital, or group home...) When possible be specific @ -No Did you speak to anyone other than the patient for history (EMS, parent, family, police, friend...)? What history was obtained from this source @ -No Did you review nursing and triage notes (agree or disagree)? Why? @ -I reviewed and agree with nursing and triage notes Were old charts reviewed (outside hosp., previous admission, EMS record, old EKG, old radiological studies, urgent care reports/EKG's, group home records)? Report findings @ -No old charts were reviewed Differential Diagnosis (chest pain, altered mental status, abdominal pain women, abdominal pain men, vaginal bleeding, weakness, fever, dyspnea, syncope, headache, dizziness, GI bleed, back pain, seizure, CVA, palpatations, mental health, musculoskeletal)? @ -Fall, hematoma, contusion, hemorrhage, intracranial bleed, fracture EKG interpreted by me (3pts min.). @ -none X-rays interpreted by me (1pt min.). @ - X-rays of the patient's AP pelvis and right hip obtained with no acute trauma to the pelvis or hip. The lumbar spine reveals degenerative disc disease in room change the facet joints but no lumbar spine fracture or malalignment. CT interpreted by me (1pt min.). @ -Head CT no acute bleed or mass effect, moderate soft tissue swelling of the right frontal bone and orbit. CT cervical spine no acute trauma. U/S interpreted by me (1pt. min.). @ -None done What testing was considered but not performed or refused? (CT, X-rays, U/S, labs)? Why? @ -None What meds were considered but not given or refused? Why? @ -None Did you discuss the management of the patient with other professionals (professionals i.e. , PA, HOME PARAPROFESSIONAL, lab, RT, psych nurse, social science research assistant, shovel log loader operator, teacher, pharmaceutical officer, case management associate)? Give summary @ -No Was smoking cessation discussed for >3mins.? @ -No Was critical care preformed (if so, how long)? @ -No Were there social determinants of health that impacted care today? How? (Homelessness, low income, unemployed, alcoholism, drug addiction, transportation, low edu. Level, literacy, decrease access to med. care, detention, rehab)? @ -No Was there de-escalation of care discussed even if they declined (Discuss DNR or withdrawal of care, Hospice)? DNR status @ -No What co-morbidities impacted this encounter? (DM, HTN, Smoking, COPD, CAD, Cancer, CVA, ARF, Chemo, Hep., AIDS, mental health diagnosis, sleep apnea, morbid obesity)? @ -None Was patient admitted / discharged? Hospital course, mention meds given and route, prescriptions, significant lab abnormalities, going to OR and other pertinent info. @ -73-year-old female with complaint of fall. On physical examination patient noted to have hematoma over the right eye brow in addition to pain over the right hip with movement. Patient's neurological exam no acute findings. CT results unremarkable for acute process. Patient given oral Tylenol for pain relief. Imaging including CT and x-rays were unremarkable. Patient's pain has improved with pain medication. Patient does not ambulate at baseline therefore ambulation was not conducted in the emergency department. Patient is stable for discharge. Discussed with Dr. Alexander Undiagnosed new problem with uncertain prognosis? @ -No Drug Therapy requiring intensive monitoring for toxicity (Heparin, Nitro, Insulin, Cardizem)? @ -No Were any procedures done? @ -No Diagnosis/symptom? @ -fall, hematoma, hip pain Acute, or Chronic, or Acute on Chronic? @ -acute Uncomplicated (without systemic symptoms) or Complicated (systemic symptoms)? @ -uncomplicated Side effects of treatment? @ -No Exacerbation, Progression, or Severe Exacerbation? @ -No Poses a threat to life or bodily function? How? (Chest pain, [place], [place], pneumonia, PE, COPD, DKA, ARF, appy, cholecystitis, CVA, Diverticulitis, Homicidal, Suicidal, threat to staff... and all critical care pts) @ -No Disposition Clinical Impression: Fall, Hematoma and contusion Narrative: Please return to the Emergency Department if symptoms worsen or any other co ncerns. Disposition: HOME SELF-CARE Condition: Good Instructions (If sedation given, give patient instructions): Fall Prevention for Older Adults (ED) Is patient prescribed a controlled substance at d/c from ED?: No Referrals: Tiarra Joel MD [Primary Care Provider] - 1-2 days
[2023-07-26] MEDS: ACETAMINOPHEN TAB 500 MG TAB PO STA (18:19)
--- NOTE | 2023-07-26 18:50 | CT ---
EXAMINATION TYPE: CT brain chucky wo con DATE OF EXAM: 07/26/2023 COMPARISON: 10/14/2020 HISTORY: fall CT DLP: 1454.3 mGycm Automated exposure control for dose reduction was used. TECHNIQUE: CT scan of the head and cervical spine are performed without contrast. Findings: Head CT: Ventricles, basal cisterns and sulci over convexities within normal limits and there is no mass, mass effect or shift of midline structures. No abnormal density is seen throughout the brain parenchyma and there is no acute intra or extra-axia l hemorrhage. Posterior fossa including the brainstem, fourth ventricle and cerebellar pontine angles are grossly n ormal. The intraorbital contents appear normal and symmetric. Visualized paranasal sinuses are well aerated. There is moderate soft tissue swelling over the right frontal bone and orbit. The calvarium is intact . CT cervical spine: Craniovertebral junction relationships and prevertebral soft tissues are normal. There is no cervical spine fracture. There is a 2 to 3 mm anterolisthesis of C6 on C7. There is moderate degenerative disease at the C5-6 level where there is moderate disc space narrowing and spondylosis. There is mild degenerative disease at the C6-7 level. There is degeneration of the vertebral joints at C5-6 and C6-7 and of the facet joints at the C7/T1 l evel. There is no bony neural foraminal encroachment of the cervical canal. There is moderate bony neural foraminal encroachment at C5-6 on the right. The paraspinal soft tissues unremarkable. IMPRESSION: 1. Head CT: No acute bleed or mass effect. Moderate soft tissue swelling of the right frontal bone an d orbit. 2. CT cervical spine: No acute trauma. Degenerative changes as described above.
--- NOTE | 2023-07-26 19:26 | XR ---
EXAMINATION TYPE: XR Hip RT and AP Pelvis DATE OF EXAM: 07/26/2023 COMPARISON: Right hip dated 02/23/2014. HISTORY: Pain following trauma TECHNIQUE: A single AP view of the pelvis is obtained. Two views of the right hip are obtained. FINDINGS: There is no acute fracture/dislocation evident in the pelvis. The hip and sacroiliac join ts appear symmetric and unremarkable. The overlying soft tissue appears unremarkable. Two views of right hip show no acute fracture or dislocation. There are bilateral hip prostheses. The re is mild heterotopic bone formation of the right hip. IMPRESSION: No evidence of acute trauma to the pelvis or right hip.
--- NOTE | 2023-07-26 19:28 | XR ---
Lumbar spine. HISTORY: Pain finding trauma. COMPARISON: None. TECHNIQUE: 3 views lumbar spine were obtained. FINDINGS: The lumbar vertebral segments are normal in height and alignment there is no fracture or subluxation. There is mild disc space narrowing and spondylosis throughout the lumbar region indicating mild dege nerative disc disease. The lower facets appear sclerotic likely indicating a stress tracer facets. Sa betty and SI joints normal. IMPRESSION: Degenerative disc disease and degenerative change of the facet joints but no lumbar spine fracture or malalignment.
[2023-07-26 20:25] VITALS: BP 149/72; PULSE 62
== END 2023-07-26 21:48 | disposition home or self-care (01) ==
LOC: EC 17:01
DX: S70.01XA Contusion of right hip, initial encounter (principal); Z88.1 Allergy status to other antibiotic agents; Z88.2 Allergy status to sulfonamides; Z91.040 Latex allergy status; W18.30XA Fall on same level, unspecified, initial encounter
CPT/HCPCS: 70450; 72100; 72125; 73502

== ENCOUNTER → 2023-12-23 | Outpatient (CLI) | payer MEDICARE, OTHER ==
--- NOTE | 2023-12-23 10:19 | FL ---
EXAMINATION TYPE: FL barium swallow DATE OF EXAM: 12/23/2023 9:59 AM COMPARISON: 01/12/2022 CLINICAL INDICATION:Female, 73 years old with history of R13.1 dysphagia; PHH, TECHNIQUE: The procedure was explained and patient history elicited. All patient questions were ans wered prior to start of procedure. Multiple spot fluoroscopic images of the esophagus were obtained a fter the oral ingestion of effervescent crystals and liquid barium as the contrast agent. Fluoroscopic time: 40 seconds sec Fluoroscopic images: 0 Radiographs taken: 64 DAP: Not reported mGym2 FINDINGS: Limited exam due to patient inability to stand. Free flow of contrast through the esophagus. The esophagus demonstrates normal primary and secondary peristalsis. The esophageal mucosa is smooth without evidence of focal stricture, ulceration, or abn ormal outpouching. Mild gastroesophageal reflux and tertiary contractions were visualized. IMPRESSION: Esophageal dysmotility with reflux. [facility], , 12/23/2023 10:17 AM
== END | disposition home or self-care (01) ==
LOC: RADFLMAIN 09:09
PROVIDERS: ATTEND Family Medicine
DX: R13.10 Dysphagia, unspecified
CPT/HCPCS: 74220

== ENCOUNTER 2024-01-04 14:58 | Emergency (ER) | payer MEDICARE, OTHER ==
[2024-01-04 15:08] VITALS: RESP 18; TEMP 98.8
--- NOTE | 2024-01-04 15:14 | ED ---
General Adult HPI - General Chief complaint: Recheck/Abnormal Lab/Rx Stated complaint: Fall Time Seen by Provider: 01/04/24 15:03 Source: patient, EMS, RN notes reviewed Mode of arrival: EMS Limitations: altered mental status - History of Present Illness Initial comments: Patient is a 73-year-old male presenting to the emergency department following a fall. Patient did trip and fall backwards. Patient did strike the back of her head. No loss of consciousness. Only mild discomfort at this time. No neck or back pain. No weakness or confusion. Patient denies any visual changes. - Related Data Home Medications Medication Instructions Recorded Confirmed Levothyroxine Sodium [Synthroid] 150 mcg PO SUTUTHSA@59910/02/13 11/04/22 Levothyroxine Sodium [Synthroid] 175 mcg PO MOWEFR@59910/02/13 11/04/22 Nitroglycerin Sl Tabs [Nitrostat] 0.4 mg SL Q5M PRN 10/02/13 11/04/22 Famotidine [Pepcid] 20 mg PO HS@209905/05/21 11/04/22 Multivitamins, Thera [Multivitamin 1 tab PO DAILY@0905/05/21 11/04/22 (formulary)] Fluticasone Propionate [Flovent 1 puff INHALATION RT-BID@899,209906/10/2105/28 Hfa 110 mcg] DULoxetine HCL [Cymbalta] 30 mg PO DAILY@0909/12/21 11/04/22 Fluticasone Nasal [place] [Flonase 1 spray EA NOSTRIL BID@899,209909/12/21 11/04/22 Nasal [place]] Calcium Carbonate [Tums] 1,000 mg PO Q6H PRN 06/16/22 11/04/22 Cranberry 450mg Tab 450 mg PO BID@0900,209906/16/22 11/04/22 DULoxetine HCL [Cymbalta] 60 mg PO HS@209906/16/22 11/04/22 Diclofenac Sodium [Voltaren 2 gm TOPICAL Q6H PRN 06/16/22 11/04/22 Arthritis Pain 1% Gel] Dicyclomine [Bentyl] 10 mg PO TID@0900,1300,209906/16/22 11/04/22 L.acidoph,Paracasei, B.lactis 2 cap PO DAILY@89906/16/22 11/04/22 [Probiotic] Methenamine Hippurate 1 gm PO TID@0900,1300,209906/16/22 11/04/22 Psyllium Husk 100% [Metamucil 6 gm PO HS@209906/16/22 11/04/22 Packet] rOPINIRole HCL [Requip] 0.5 mg PO BID@09,209906/16/22 11/04/22 Insulin Lispro [humaLOG Kwikpen] 3 unit SQ AC-TID@,08/08/22 11/04/22 Insulin Lispro [humaLOG Kwikpen] See Protocol SQ AC-TID@,,08/08/22 11/04/22 Linagliptin [Tradjenta] 5 mg PO DAILY@89908/08/22 11/04/22 Omeprazole 20 mg PO DAILY@59908/08/22 11/04/22 Ondansetron [Zofran] 4 mg PO Q6H PRN 08/08/22 11/04/22 Acetaminophen [Tylenol 8 Hour] 650 mg PO HS@209911/04/22 11/04/22 Brexpiprazole [Rexulti] 0.5 mg PO HS@209911/04/22 11/04/22 Cetirizine HCl [Zyrtec] 10 mg PO HS@209911/04/22 11/04/22 Folic Acid 1 mg PO DAILY@89911/04/22 11/04/22 Losartan [Cozaar] 25 mg PO DAILY@89911/04/22 11/04/22 Thiamine [Vitamin B-1] 100 mg PO DAILY@89911/04/22 11/04/22 Previous Rx's Medication Instructions Recorded Acetaminophen Tab [Tylenol] 650 mg PO Q6HR PRN tab 08/11/22 Lactulose [Cephulac] 20 gm PO BID PRN #60 ml 08/11/22 Mag Hydrox/Al Hydrox/Simeth 15 ml PO Q6HR PRN ml 08/11/22 [Maalox] Topiramate [Topamax] 50 mg PO HS@2100 tab 08/03/23 Allergies Allergy/AdvReac Type Severity Reaction Status Date / Time erythromycin base Allergy Unknown Rash/Hives Verified 07/26/23 17:11 latex Allergy Unknown Itching Verified 07/26/23 17:11 adhesive Allergy Rash/Hives Verified 07/26/23 17:11 morphine Allergy Rash/Hives Verified 07/26/23 17:11 pioglitazone [From Actos] Allergy Swelling Verified 07/26/23 17:11 Sulfa (Sulfonamide Allergy Anaphylaxis Verified 07/26/23 17:11 Antibiotics) tetracycline [Tetracycline] Allergy Rash/Hives Verified 07/26/23 17:11 enoxaparin sodium AdvReac Unknown RED LUMPS Verified 07/26/23 17:11 [From Lovenox] ON ABDOMEN AT INJECTION SITES metformin AdvReac Diarrhea Verified 07/26/23 17:11 Review of Systems ROS Statement: Those systems with pertinent positive or pertinent negative responses have been documented in the HPI. ROS Other: All systems not noted in ROS Statement are negative. Constitutional: Denies: fever Eyes: Reports: as per HPI. Denies: eye pain, vision change ENT: Denies: ear pain Respiratory: Denies: cough Cardiovascular: Denies: chest pain Endocrine: Denies: fatigue Gastrointestinal: Denies: nausea Genitourinary: Denies: dysuria Musculoskeletal: Denies: back pain Neurological: Reports: as per HPI. Denies: weakness Past Medical History Past Medical History: Asthma, COPD, Diabetes Mellitus, Deep Vein Thrombosis (DVT), Eye Disorder, GERD/Reflux, Hypertension, Osteoarthritis (OA), Pneumonia, Skin Disorder, Thyroid Disorder Additional Past Medical History / Comment(s): MRSA infection rt foot 5th digit and side of rt foot, Hx GLAUCOMA, TMJ, RENAL CALCULI, UTIs, DVT X 5 ( STATES CAUSED BY CONTROL PILLS AND HORMONES),[place], HAND TREMORS History of Any Multi-Drug Resistant Organisms: ESBL, MRSA Date of last positivie culture/infection: 04/05/23 ESBL; 06/20/21 MRSA MDRO Source:: Urine-ESBL; Foot-MRSA Past Surgical History: Back Surgery, Bladder Surgery, Breast Surgery, Heart Catheterization, Hysterectomy, Joint Replacement, Orthopedic Surgery, Tonsillectomy Additional Past Surgical History / Comment(s): 04/17/16 arthrotomy removal olecranon spur and loose bodies R elbow. , JULIANNE TOTAL HIP, LAPAROSCOPY, BREAST BIOPSY, JULIANNE CARPAL TUNNEL, JULIANNE KNEE REPLACEMENT, JULIANNE ROTATOR CUFF REPAIR, LEFT FOOT SURG, Right foot bursa removal, Past Anesthesia/Blood Transfusion Reactions: Postoperative Nausea & Vomiting (PONV) Past Psychological History: No Psychological Hx Reported Smoking Status: Never smoker, Unknown if ever smoked Past Alcohol Use History: Rare Past Drug Use History: None Reported - Past Family History Mother Family Medical History: Hyperlipidemia, Hypertension Additional Family Medical History / Comment(s): Mother at age 96. Father Family Medical History: Osteoarthritis (OA) Sister(s) Family Medical History: Pulmonary Embolus General Exam Limitations: altered mental status General appearance: alert, in no apparent distress Head exam: Present: other (Mild soft tissue swelling right posterior parietal) Eye exam: Present: normal appearance, PERRL, EOMI ENT exam: Present: normal oropharynx Neck exam: Present: normal inspection. Absent: tenderness Respiratory exam: Present: normal lung sounds bilaterally Cardiovascular Exam: Present: regular rate, normal rhythm GI/Abdominal exam: Present: soft. Absent: tenderness Extremities exam: Present: normal inspection. Absent: pedal edema, calf tenderness Neurological exam: Present: alert. Absent: motor sensory deficit Expanded Motor strength exam: RUE: 5, LUE: 5, RLE: 5, LLE: 5 Eye Response: (4) open spontaneously Motor Response: (6) obeys commands Verbal Response: (5) oriented Psychiatric exam: Present: normal affect, normal mood Skin exam: Present: normal color Course Vital Signs 01/04/24 15:00 Temperature 98.8 F Pulse Rate 87 Respiratory 18 Rate Blood Pressure 150/82 O2 Sat by Pulse 94 L Oximetry Medical Decision Making - Medical Decision Making Was pt. sent in by a medical professional or institution (, PA, ROTARY LITHOGRAPHIC PRESS OPERATOR, urgent care, hospital, or [facility]p...) When possible be specific @ -Patient was sent from usp Did you speak to anyone other than the patient for history (EMS, parent, family, police, friend...)? What history was obtained from this source @ -EMS provides history of transportation Did you review nursing and triage notes (agree or disagree)? Why? @ -I reviewed and agree with nursing and triage notes Were old charts reviewed (outside hosp., previous admission, EMS record, old EKG, old radiological studies, urgent care reports/EKG's, usp records)? Report findings @ -No old charts were reviewed Differential Diagnosis (chest pain, altered mental status, abdominal pain women, abdominal pain men, vaginal bleeding, weakness, fever, dyspnea, syncope, headache, dizziness, GI bleed, back pain, seizure, CVA, palpatations, mental health, musculoskeletal)? @ -Differential Altered Mental Status: Hypoglycemia, DKA, hypercapnia, ETOH, overdose, CO poisoning, trauma, myxedema coma, HTN encephalopathy, infection, encephalitis, psychosis, intercranial hemorrhage, hepatic encephalopathy, meningitis, CVA, this is not meant to be an all-inclusive list EKG interpreted by me (3pts min.). @ -As above X-rays interpreted by me (1pt min.). @ -None done CT interpreted by me (1pt min.). @ -CT scan of brain and cervical spine without acute abnormality U/S interpreted by me (1pt. min.). @ -None done What testing was considered but not performed or refused? (CT, X-rays, U/S, labs)? Why? @ -None What meds were considered but not given or refused? Why? @ -None Did you discuss the management of the patient with other professionals (professionals i.e. , PA, ROTARY LITHOGRAPHIC PRESS OPERATOR, lab, RT, psych nurse, oncology social worker, au pair, teacher, community liaison officer, ed case manager)? Give summary @ -No Was smoking cessation discussed for >3mins.? @ -No Was critical care preformed (if so, how long)? @ -No Were there social determinants of health that impacted care today? How? (Homelessness, low income, unemployed, alcoholism, drug addiction, transportation, low edu. Level, literacy, decrease access to med. care, [facility], rehab)? @ -No Was there de-escalation of care discussed even if they declined (Discuss DNR or withdrawal of care, Hospice)? DNR status @ -No What co-morbidities impacted this encounter? (DM, HTN, Smoking, COPD, CAD, Cancer, CVA, ARF, Chemo, Hep., AIDS, mental health diagnosis, sleep apnea, morbid obesity)? @ -None Was patient admitted / discharged? Hospital course, mention meds given and route, prescriptions, significant lab abnormalities, going to OR and other pertinent info. @ -Patient presents with fall. Exam unremarkable. Imaging unremarkable. Patient will be discharged Undiagnosed new problem with uncertain prognosis? @ -No Drug Therapy requiring intensive monitoring for toxicity (Heparin, Nitro, Insulin, Cardizem)? @ -No Were any procedures done? @ -No Diagnosis/symptom? @ -Fall, head injury Acute, or Chronic, or Acute on Chronic? @ -Acute, acute Uncomplicated (without systemic symptoms) or Complicated (systemic symptoms)? @ -Default Side effects of treatment? @ -No Exacerbation, Progression, or Severe Exacerbation? @ -No Poses a threat to life or bodily function? How? (Chest pain, [place], [place], pneumonia, PE, COPD, DKA, ARF, appy, cholecystitis, CVA, Diverticulitis, Homicidal, Suicidal, threat to staff... and all critical care pts) @ -Threat to neurological function Disposition Clinical Impression: Fall, Head injury Disposition: HOME SELF-CARE Condition: Stable Instructions (If sedation given, give patient instructions): Head Injury (ED), Fall Prevention for Older Adults (ED) Additional Instructions: [id number] Tylenol if needed. Please follow-up with primary care physician in the next couple of days for recheck. Return for change in vision, pain, confusion, weakness, worsening or changing symptoms or other concerns. Is patient prescribed a controlled substance at d/c from ED?: No Referrals: Tiarra Joel MD [Primary Care Provider] - 1-2 days Time of Disposition: 16:04
--- NOTE | 2024-01-04 15:48 | CT ---
EXAMINATION TYPE: CT brain tuyetine wo con DATE OF EXAM: 01/04/2024 COMPARISON: 07/26/2023 HISTORY: fall. ams CT DLP: 1345.9 mGycm, Automated exposure control for dose reduction was used. CONTRAST: None CT of the brain is performed utilizing 3 mm thick sections through the posterior fossa and 3 mm thick sections through the remaining calvarium. Study is performed within 24 hours of arrival to the hospital. No abnormal hyperdensity is present to suggest an acute intracranial hemorrhage. No mass lesion is evident. No acute infarcts are evident. Mild periventricular white matter hypodensity is present, likely on t he basis of chronic white matter ischemic changes. This appears stable from comparison. Ventricles and sulci are appropriate for the patient age. Hyperostosis frontalis internus, a normal variant, is present. Paranasal sinuses and mastoid air cells within the [id number] are clear. IMPRESSIONS: 1. No acute intracranial process. Follow-up MRI can be performed as clinically indicated. 2. Chronic appearing periventricular white matter ischemic-type changes, stable from comparison. CT cervical spine. COMPARISON: None CT of the cervical spine is performed in the axial plane at 2 mm thick sections. Reconstructed image s in the coronal, and sagittal plane are reviewed on the computer. No acute fractures are evident. Vertebral body alignment is normal. Disc space narrowing is present C5-6 and C6-7. Vertebral body heights are preserved. No spinal canal stenosis is evident. Uncovertebral joint hypertrophy is causing moderate to severe right foraminal stenosis C5-6 moderate bilateral foraminal narrowing is present C6-7 IMPRESSION: 1. No acute osseous abnormality cervical spine. 2. Degenerative changes C5-6 C6-7 with foraminal stenosis discussed above. [facility], Workstation: [id number], 01/04/2024 3:46 PM
[2024-01-04 16:38] VITALS: BP 144/76; PULSE 78
== END 2024-01-04 16:38 | disposition home or self-care (01) ==
LOC: EC 14:58
DX: W19.XXXA Unspecified fall, initial encounter
CPT/HCPCS: 70450; 72125; 99284

== ENCOUNTER → 2024-09-18 | Outpatient (CLI) | payer MEDICARE, OTHER ==
--- NOTE | 2024-09-18 13:51 | FL ---
EXAMINATION TYPE: FL barium swallow w video DATE OF EXAM: 09/18/2024 CLINICAL HISTORY: 74-year-old female K22.4, dyskinesia of the esophagus, trouble swallowing, Dysphagi a. TECHNIQUE: Deglutition study is performed utilizing thin liquid barium, barium thick pudding, and ba rium coated cracker. Total dose area product (DAP) in uGy*m?, mGy*cm? (or similar): 50 mGycm2. Total fluoroscopy time: 1 minute 32 seconds. COMPARISON: None. FINDINGS: The oral and pharyngeal phases show satisfactory initiation and propagation with all modali ties tested. Normal mastication is seen with solid modalities tested though the patient is edentulou s. There is no evidence of penetration or aspiration with any modality tested. Mild vallecular resid uals are encountered. IMPRESSION: Mild vallecular residuals. No penetration or aspiration. Please refer to speech therapist notes for further details if necessary. [facility], , 09/18/2024 1:48 PM
== END | disposition home or self-care (01) ==
LOC: RADFLMAIN 12:29
PROVIDERS: ATTEND Family Medicine
DX: K22.4 Dyskinesia of esophagus (principal)
CPT/HCPCS: 74230